=== PATIENT | male | born 1970 | race Caucasian/White ===

== ENCOUNTER 2019-04-15 00:13 | Inpatient (IN) ==
[2019-04-15] MEDS ORDERED: cefTRIAXone SODIUM 2,000 MG/70 ML BAG IV STA (00:41)
[2019-04-15 01:02] LABS: Basophils # (auto) 0.04 K/uL (0-0.2); Basophils % (auto) 0.3 %; Eosinophils # (auto) 0.44 K/uL (0-0.5); Eosinophils % (auto) 3.6 %; Hematocrit (blood only) 38.8 % (42-52); Hemoglobin 12.7 g/dL (14.0-18.0); Immature Granulocytes # (auto) 0.41 K/uL (0.00-0.02); Immature Granulocytes % (auto) 3.4 %; Lymphocytes # (auto) 3.08 K/uL (1.2-3.4); Lymphocytes % (auto) 25.5 %; Mean Corpuscular Hemoglobin 31.1 pg (25-34); Mean Corpuscular Hgb Conc 32.7 g/dL (32-36); Mean Corpuscular Volume 95.1 fL (80-100); Monocytes # (auto) 1.39 K/uL (0.11-0.59); Monocytes % (auto) 11.5 %; Neutrophils # (auto) 6.71 K/uL (1.4-6.5); Neutrophils % (auto) 55.7 %; Platelet Count 206 K/uL (130-400); RDW Standard Deviation 45.8 fL (36.4-46.3); Red Blood Count 4.08 M/uL (4.7-6.1); White Blood Count 12.07 K/uL (4.8-10.8)
[2019-04-15 01:20] LABS: Alanine Aminotransferase 37 U/L (12-78); Albumin Level 2.9 gm/dl (3.4-5.0); Aspartate Aminotransferase 11 U/L (15-37); BUN Creatinine Ratio 14.9 (10-20); Blood Urea Nitrogen 9 mg/dl (7-18); Calcium 8.5 mg/dl (8.5-10.1); Carbon Dioxide 30 mmol/L (21-32); Chloride 105 mmol/L (98-107); Est GFR (African American) 137.8; Est GFR (Non-African American) 118.9; Glucose 117 mg/dl (70-99); Potassium 3.8 mmol/L (3.5-5.1); Sodium 140 mmol/L (136-145)
[2019-04-15 01:22] LABS: Albumin Globulin Ratio 0.8 (0.9-2); Alkaline Phosphatase 75 U/L (45-117); Bilirubin,Total 0.5 mg/dl (0.2-1); Globulin 3.8 gm/dl (2.5-4.0); Total Protein 6.7 gm/dl (6.4-8.2)
--- NOTE | 2019-04-15 02:03 | Emergency Department Note ---
History of Present Illness General Chief complaint: Swelling/Edema to Extremity Stated complaint: SWELLING, DISCOLORATION, PAIN RT LEG History of Present Illness Maximum Pain Intensity: 4 This 48-year-old presents to the ER complaining of right lower leg pain and swelling Location: Right lower leg Quality: Swollen Severity: Moderate Duration: Past few days Timing: Noted few days ago Context: Patient was concerned and came in Modifying factors: better with nothing; worse with nothing Patient is visiting from [place]. Patient has been feeling sick the past few days. Patient states he is healthy with no active medical problems. Patient denies chest pain, dyspnea, cough, congestion, abdominal pain, trauma to the leg. No IV drug abuse. No diabetes. No history of DVT or PE. No family history of DVT or PE. No history of MRSA. Tetanus is current. Home Medications Home Medications Medication Instructions Recorded Confirmed Type Black Elderberry 1 tab PO DAILY 04/15/19 04/15/19 History acetaminophen [Tylenol] 650 mg PO Q6H PRN 04/15/19 04/15/19 History cranberry extract 0 mg PO DIRECTED 04/15/19 04/15/19 History Allergies Allergy/AdvReac Type Severity Reaction Status Date / Time No Known Allergies Allergy Unverified 04/15/19 01:01 Past Med/Surg History Medical History No acute medical problems Surgical History History of cholecystectomy Social History Feels Safe at Home: Yes Smoking Status: Former smoker Review of Systems All systems reviewed & are unremarkable except as noted in HPI & below Physical Exam Vital Signs Vital Signs - 24 hr 04/15/19 00:16 04/15/19 00:42 04/15/19 01:30 Temperature 36.9 C Temperature Source Oral Sepsis Action Taken by Nursing No Action Required Pulse Rate 95 H 87 Pulse Rate from SpO2 Sensor 89 Respiratory Rate 24 14 Respiratory Effort / Characteristics Non-Labored Spontaneous Respiratory Depth Normal Blood Pressure 158/100 H 117/70 Blood Pressure Mean 119 85 Pulse Oximetry 95 95 Oxygen Delivery Method Room Air Room Air 04/15/19 01:36 04/15/19 01:45 04/15/19 01:47 Temperature Temperature Source Sepsis Action Taken by Nursing Pulse Rate 88 84 86 Pulse Rate from SpO2 Sensor 87 85 86 Respiratory Rate 21 29 H 32 H Respiratory Effort / Characteristics Respiratory Depth Blood Pressure 122/87 Blood Pressure Mean 98 Pulse Oximetry 95 98 96 Oxygen Delivery Method 04/15/19 02:31 04/15/19 02:33 04/15/19 02:45 Temperature Temperature Source Sepsis Action Taken by Nursing Pulse Rate 86 85 87 Pulse Rate from SpO2 Sensor 86 84 87 Respiratory Rate 20 25 H 38 H Respiratory Effort / Characteristics Respiratory Depth Blood Pressure 127/83 Blood Pressure Mean 97 Pulse Oximetry 98 100 97 Oxygen Delivery Method 04/15/19 02:46 04/15/19 03:00 04/15/19 03:01 Temperature Temperature Source Sepsis Action Taken by Nursing Pulse Rate 88 88 86 Pulse Rate from SpO2 Sensor 88 87 88 Respiratory Rate 25 H 22 27 H Respiratory Effort / Characteristics Respiratory Depth Blood Pressure 134/79 132/84 Blood Pressure Mean 97 100 Pulse Oximetry 98 97 97 Oxygen Delivery Method 04/15/19 03:15 04/15/19 03:16 04/15/19 03:30 Temperature Temperature Source Sepsis Action Taken by Nursing Pulse Rate 89 87 91 H Pulse Rate from SpO2 Sensor 88 87 92 H Respiratory Rate 21 32 H 27 H Respiratory Effort / Characteristics Respiratory Depth Blood Pressure 141/79 H Blood Pressure Mean 99 Pulse Oximetry 95 96 97 Oxygen Delivery Method 04/15/19 03:31 04/15/19 03:45 04/15/19 03:46 Temperature Temperature Source Sepsis Action Taken by Nursing Pulse Rate 87 90 90 Pulse Rate from SpO2 Sensor 87 90 91 H Respiratory Rate 28 H 27 H 25 H Respiratory Effort / Characteristics Respiratory Depth Blood Pressure 161/85 H 125/97 Blood Pressure Mean 110 106 Pulse Oximetry 96 96 96 Oxygen Delivery Method 04/15/19 04:00 04/15/19 04:02 04/15/19 04:15 Temperature Temperature Source Sepsis Action Taken by Nursing Pulse Rate 88 89 87 Pulse Rate from SpO2 Sensor 88 91 H 89 Respiratory Rate 33 H 20 24 Respiratory Effort / Characteristics Respiratory Depth Blood Pressure 130/81 Blood Pressure Mean 97 Pulse Oximetry 96 97 97 Oxygen Delivery Method 04/15/19 04:16 04/15/19 04:30 04/15/19 04:31 Temperature Temperature Source Sepsis Action Taken by Nursing Pulse Rate 89 90 84 Pulse Rate from SpO2 Sensor 89 91 H 85 Respiratory Rate 42 H 23 22 Respiratory Effort / Characteristics Respiratory Depth Blood Pressure 140/104 H 132/86 Blood Pressure Mean 116 101 Pulse Oximetry 98 95 98 Oxygen Delivery Method 04/15/19 04:45 04/15/19 04:46 Temperature Temperature Source Sepsis Action Taken by Nursing Pulse Rate 88 87 Pulse Rate from SpO2 Sensor 88 87 Respiratory Rate 22 27 H Respiratory Effort / Characteristics Respiratory Depth Blood Pressure 161/78 H Blood Pressure Mean 105 Pulse Oximetry 99 97 Oxygen Delivery Method VITALS: Vitals are noted on the nurse's note and reviewed by myself. Vital signs stable. GENERAL: White male, in no acute distress, nondiaphoretic, well-developed well- nourished. SKIN: Capillary reflex less than 2 seconds. HEENT: Normocephalic. PERRLA. EOMI. Nares patent. Mucous membranes moist. Neck is supple without nuchal rigidity. HEART: Regular rate and rhythm LUNGS: Clear to auscultation bilaterally without wheezes, rales or rhonchi. No retractions or accessory muscle use. ABDOMEN: Positive bowel sounds x 4. Normal tympanic percussion. Soft, nontender, without masses or organomegaly. Lewis sign negative. No guarding or rebound tenderness. No CVA tenderness MUSCULOSKELETAL: No gross musculoskeletal defects. Right lower leg erythematous and edematous concerning for infection. Pedal pulses +2 equal and present bilaterally. NEURO: Patient was alert and oriented to person place and time. Normal sensation to light and sharp touch. No focal neurological deficits. Course Administered Medications Doxycycline Hyclate 100 mg/ (Dextrose) 110 mls @ 50 mls/hr IV NOW STA Stop: 04/15/19 05:48 Last Admin: 04/15/19 04:49 Dose: 50 mls/hr Documented by: [id number] Discontinued Medications Furosemide (Lasix) Confirm Administered Dose 40 mg IV .STK-MED ONE Stop: 04/15/19 04:28 Last Admin: 04/15/19 04:49 Dose: 40 mg Documented by: [id number] Ceftriaxone Sodium (Rocephin) 2,000 mg in 70 mls @ 140 mls/hr IV NOW STA Stop: 04/15/19 01:10 Last Infusion: 04/15/19 02:30 Dose: 0 mls/hr Documented by: [id number] Admin: 04/15/19 01:45 Dose: 140 mls/hr Documented by: [id number] Furosemide 40 mg/ Syringe 4 mls @ 4 mls/min IV ONE ONE Stop: 04/15/19 04:23 Last Admin: 04/15/19 04:49 Dose: Not Given Documented by: [id number] Potassium Chloride (Klor-Con M10) Confirm Administered Dose 40 meq PO .STK-MED ONE Stop: 04/15/19 04:43 Last Admin: 04/15/19 04:50 Dose: 40 meq Documented by: [id number] Medical Decision Making Medical Records Attestation: I reviewed the patient's medical records. Home Medications Current Medication List: was personally reviewed by me Laboratory Data Attestation: I reviewed the patient's lab results. Result diagrams: 04/15/19 00:50 04/15/19 00:50 Lab Results 04/15/19 04/15/19 04/15/19 Range/Units 00:50 00:50 00:58 WBC 12.07 H (4.8-10.8) K/uL RBC 4.08 L (4.7-6.1) M/uL Hgb 12.7 L (14.0-18.0) g/dL Hct 38.8 L (42-52) % MCV 95.1 (80-100) fL MCH 31.1 (25-34) pg MCHC 32.7 (32-36) g/dL RDW Std Deviation 45.8 (36.4-46.3) fL RDW Coeff of Nelson 13.0 (11.5-14.5) % Plt Count 206 (130-400) K/uL MPV 9.0 (7.4-10.4) fL Immature Gran % (Auto) 3.4 % Neut % (Auto) 55.7 % Lymph % (Auto) 25.5 % [place] % (Auto) 11.5 % Eos % (Auto) 3.6 % Baso % (Auto) 0.3 % Immature Gran # (Auto) 0.41 H (0.00-0.02) K/uL Neut # (Auto) 6.71 H (1.4-6.5) K/uL Lymph # (Auto) 3.08 (1.2-3.4) K/uL [place] # (Auto) 1.39 H (0.11-0.59) K/uL Eos # (Auto) 0.44 (0-0.5) K/uL Baso # (Auto) 0.04 (0-0.2) K/uL Sodium 140 (136-145) mmol/L Potassium 3.8 (3.5-5.1) mmol/L Chloride 105 (98-107) mmol/L Carbon Dioxide 30 (21-32) mmol/L Anion Gap 5.0 (3-11) BUN 9 (7-18) mg/dl Creatinine 0.61 (0.6-1.4) mg/dl Est Cr Clr Drug Dosing Not Reportable Est GFR ( Amer) 137.8 Est GFR (Non-Af Amer) 118.9 BUN/Creatinine Ratio 14.9 (10-20) Glucose 117 H (70-99) mg/dl POC Lactic Acid Julian 1.48 (0.90-1.70) mmol/L Calcium 8.5 (8.5-10.1) mg/dl Magnesium 2.2 (1.8-2.4) mg/dl Total Bilirubin 0.5 (0.2-1) mg/dl AST 11 L (15-37) U/L ALT 37 (12-78) U/L Alkaline Phosphatase 75 (45-117) U/L NT-Pro-B Natriuret Pep 82 (0-450) pg/ml Total Protein 6.7 (6.4-8.2) gm/dl Albumin 2.9 L (3.4-5.0) gm/dl Globulin 3.8 (2.5-4.0) gm/dl Albumin/Globulin Ratio 0.8 L (0.9-2) TSH 1.030 (0.300-4.500) uIu/ml Imaging Data Attestation: I personally reviewed and interpreted this imaging study as follows: [facility] Narrative Prior records reviewed and summarized as above. Triage Nursing notes reviewed. Additional history obtained from family. The patient's history was concerning for swelling and redness of the skin. Differential diagnosis: Etiologies such as cellulitis, abscess, MRSA infection, DVT, necrotizing fasciitis, dermatitis, drug eruption, as well as others were entertained.. Physical examination: The physical examination was consistent with cellulitis ER treatment provided: Rocephin On reassessment the patient felt better. Diagnostics interpreted by me: The labs revealed leukocytosis, negative lactic acid Blood cultures pending Imaging studies: US VENOUS BILATERAL LOWER EXTREMITIES: No evidence of acute DVT. Right calf edema. Prominent right inguinal lymph nodes. Radiologist: Arslan Smith M.D. Consultation: A consultation was placed with Dr Tracey, hospitalist. The case was discussed and diagnostics were reviewed. The patient was evaluated in the ER for further treatment. This appears to be isolated cellulitis. This is quite extensive. Patient did have a white count. He was started antibiotics. Medicine was consulted. He is agreeable to treatment plan of admission. By the evaluation outlined above emergent etiologies such as abscess, necrotizin g fasciitis, DVT, as well as others were deemed relatively unlikely. The pt informed about the findings as listed above. All questions were answered and pleased with the treatment. Case reviewed with my attending The chart was completed utilizing [employer] Speech voice recognition software. Grammatical errors, random word insertions, pronoun errors, and incomplete sentences are an occassional consequence of this system due to software limitations, ambient noise, and hardware issues. Any formal questions or concerns about the content, text, or information contained within the body of this dictation should be directly addressed to the physician drafter assistant for clarification. Impression & Plan Cellulitis of leg, right Discharge Plan Visit Data Chief Complaint: Swelling/Edema to Extremity Stated Complaint: SWELLING, DISCOLORATION, PAIN RT LEG ED Provider: Isabella Barone ED Midlevel Provider: Leila England Discharge Problem: Cellulitis of leg, right Patient Disposition: Admitted As Inpatient Condition: Good Forms Stand Alone Forms: Protective Systems Prescriptions Prescriptions: No Action acetaminophen [Tylenol] 325 mg Tablet 650 mg PO Q6H PRN (Reason: Pain) RF: 0 cranberry extract 500 mg Capsule PO DIRECTED RF: 0 Black Elderberry 1 tab PO DAILY RF: 0 Referrals Referrals: PCP,NO [Primary Care Provider] -
[2019-04-15] MEDS ORDERED: DOXYCYCLINE HYCLATE 100 MG in DEXTROSE 5% 100 ML IV STA (03:37)
[2019-04-15 04:16] LABS: Magnesium 2.2 mg/dl (1.8-2.4); NT Pro B Type Natriuretic Pept 82 pg/ml (0-450)
[2019-04-15] MEDS ORDERED: FUROSEMIDE 40 MG in SYRINGE 0 ML IV ONE (04:22)
--- NOTE | 2019-04-15 04:23 | History & Physical Report ---
Date of Service April 15, 2019 Assessment & Plan (1) SOB (shortness of breath): With weight gain over the last year Possible asymmetric congestion on CXR possible subacute CHF Right-sided heart failure with normal BNP hx EMELY, CPAP noncompliance Situational hypertension Possibly chronic given cardiac enlargement on CXR RLE cellulitis no sepsis Hyperglycemia rule out DM New onset anemia possibly dilutional Tinea pedis past tobacco abuse PCU Diuretic Rx Strict I/Os, daily weights, fluid restriction for now Baseline TTE RE possible CHF, rule out for pulmonary hypertension Cardio consult pending TTE results Repeat polysomnography upon return to [place] for CPAP titration if patient amenable Local measures, Doxycycline for cellulitis, Check hemoglobin A1c Anemia work-up Topical antifungal for tinea pedis DVT prophylaxis. Lovenox subcu Full code History of Present Illness Primary Care Provider: Dr. Shaq Turner from [place] History obtained from patient, family, and records. Medical history significant for EMELY (CPAP noncompliance), past tobacco abuse, psoriasis Patient is a [place] of [place], [place] who is currently in town to help move [id number] to another residence. The last few days, patient noted redness on chronic right leg swelling without recollection of recent trauma. Feeling sick. No fever, no chills. No chest pain. noticed patient to be somewhat out of breath the last few days. As per patient, shortness of breath mostly on exertion for about a year with unquantified weight gain and bilateral leg swelling. No chest pain. Does not think he is eating as much. Patient received IV ceftriaxone at the ER for cellulitis. 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 Allergies Allergy/AdvReac Type Severity Reaction Status Date / Time No Known Allergies Allergy Unverified 04/15/19 01:01 Home Medications Home Medications Medication Instructions Recorded Confirmed Type Black Elderberry 1 tab PO DAILY 04/15/19 04/15/19 History acetaminophen [Tylenol] 650 mg PO Q6H PRN 04/15/19 04/15/19 History cranberry extract 0 mg PO DIRECTED 04/15/19 04/15/19 History Past Med/Surg History Medical History No acute medical problems Surgical History History of cholecystectomy Social History Feels Safe at Home: Yes Smoking Status: Former smoker Review of Systems Review of Systems: As per HPI, all 10 systems reviewed, scaly lesions noted on both feet by , all other ROS negative Physical Exam Physical Exam: GENERAL: Slightly uncomfortable, morbidly obese, minimal respiratory distress SKIN: Pallor , warm HEENT: Pale palpebral conjunctivae, no ptosis, dry buccal mucosa NECK : Supple, short neck, no tenderness CHEST : Decreased breath sounds, no tenderness HEART : RRR, no obvious murmurs ABDOMEN: Marked distention, nontender EXTREMITIES : Bilateral LE swelling, RLE induration with some tenderness; onychomycotic toes, bipedal hyperkeratotic scaling, plantar aspect NEUROLOGIC : Coherent, no facial asymmetry, no other gross focality Results & Data Vital Signs (Past 12 Hours) Vital Signs Temp Pulse Resp BP Pulse Ox 04/15/19 02:46 88 25 H 134/79 98 04/15/19 02:45 87 38 H 97 04/15/19 02:33 85 25 H 127/83 100 04/15/19 02:31 86 20 98 04/15/19 01:47 86 32 H 122/87 96 04/15/19 01:45 84 29 H 98 04/15/19 01:36 88 21 95 04/15/19 01:30 87 14 117/70 95 04/15/19 00:16 36.9 C 95 H 24 158/100 H 95 Laboratory Results Laboratory Results WBC 12.07 K/uL (4.8-10.8) H 04/15/19 00:50 RBC 4.08 M/uL (4.7-6.1) L 04/15/19 00:50 Hgb 12.7 g/dL (14.0-18.0) L 04/15/19 00:50 Hct 38.8 % (42-52) L 04/15/19 00:50 MCV 95.1 fL (80-100) 04/15/19 00:50 MCH 31.1 pg (25-34) 04/15/19 00:50 MCHC 32.7 g/dL (32-36) 04/15/19 00:50 RDW Std Deviation 45.8 fL (36.4-46.3) 04/15/19 00:50 RDW Coeff of Nelson 13.0 % (11.5-14.5) 04/15/19 00:50 Plt Count 206 K/uL (130-400) 04/15/19 00:50 MPV 9.0 fL (7.4-10.4) 04/15/19 00:50 Immature Gran % (Auto) 3.4 % 04/15/19 00:50 Neut % (Auto) 55.7 % 04/15/19 00:50 Lymph % (Auto) 25.5 % 04/15/19 00:50 [place] % (Auto) 11.5 % 04/15/19 00:50 Eos % (Auto) 3.6 % 04/15/19 00:50 Baso % (Auto) 0.3 % 04/15/19 00:50 Immature Gran # (Auto) 0.41 K/uL (0.00-0.02) H 04/15/19 00:50 Neut # (Auto) 6.71 K/uL (1.4-6.5) H 04/15/19 00:50 Lymph # (Auto) 3.08 K/uL (1.2-3.4) 04/15/19 00:50 [place] # (Auto) 1.39 K/uL (0.11-0.59) H 04/15/19 00:50 Eos # (Auto) 0.44 K/uL (0-0.5) 04/15/19 00:50 Baso # (Auto) 0.04 K/uL (0-0.2) 04/15/19 00:50 Sodium 140 mmol/L (136-145) 04/15/19 00:50 Potassium 3.8 mmol/L (3.5-5.1) 04/15/19 00:50 Chloride 105 mmol/L (98-107) 04/15/19 00:50 Carbon Dioxide 30 mmol/L (21-32) 04/15/19 00:50 Anion Gap 5.0 (3-11) 04/15/19 00:50 BUN 9 mg/dl (7-18) 04/15/19 00:50 Creatinine 0.61 mg/dl (0.6-1.4) 04/15/19 00:50 Est Cr Clr Drug Dosing Not Reportable 04/15/19 00:50 Est GFR ( Amer) 137.8 04/15/19 00:50 Est GFR (Non-Af Amer) 118.9 04/15/19 00:50 BUN/Creatinine Ratio 14.9 (10-20) 04/15/19 00:50 Glucose 117 mg/dl (70-99) H 04/15/19 00:50 POC Lactic Acid Julian 1.48 mmol/L (0.90-1.70) 04/15/19 00:58 Calcium 8.5 mg/dl (8.5-10.1) 04/15/19 00:50 Magnesium 2.2 mg/dl (1.8-2.4) 04/15/19 00:50 Total Bilirubin 0.5 mg/dl (0.2-1) 04/15/19 00:50 AST 11 U/L (15-37) L 04/15/19 00:50 ALT 37 U/L (12-78) 04/15/19 00:50 Alkaline Phosphatase 75 U/L (45-117) 04/15/19 00:50 NT-Pro-B Natriuret Pep 82 pg/ml (0-450) 04/15/19 00:50 Total Protein 6.7 gm/dl (6.4-8.2) 04/15/19 00:50 Albumin 2.9 gm/dl (3.4-5.0) L 04/15/19 00:50 Globulin 3.8 gm/dl (2.5-4.0) 04/15/19 00:50 Albumin/Globulin Ratio 0.8 (0.9-2) L 04/15/19 00:50 TSH 1.030 uIu/ml (0.300-4.500) 04/15/19 00:50 Diagnostic Findings Chest x-ray as per my interpretation atelectasis, cardiomegaly, poss asymmetric pulmonary congestion L>R EKG as per my interpretation rate 90, NSR, LAD, LAFB, incomplete RBBB, T wave flattening septal leads Ultrasound venous bilateral : No DVT. Right calf edema. Prominent right inguinal lymph nodes
[2019-04-15] MEDS ORDERED: FUROSEMIDE 40 MG/4 ML VIAL IV ONE (04:27)
[2019-04-15] MEDS ORDERED: POTASSIUM CHLORIDE 20 MEQ TABCR PO STA (04:33)
[2019-04-15] MEDS ORDERED: POTASSIUM CHLORIDE 10 MEQ TABCR PO ONE (04:42)
[2019-04-15] MEDS: CLOTRIMAZOLE 1% CR 15 GM TUBE EXT SCH ×2 (07:06→21:41)
--- NOTE | 2019-04-15 08:10 | Ultrasound Report ---
BILATERAL LOWER EXTREMITY VENOUS DOPPLER HISTORY: Right leg swelling COMPARISON STUDY: None. FINDINGS: There is normal compressibility, flow, and augmentation within the bilateral lower extremit y deep venous systems. Subcutaneous edema within the right calf. Prominent right inguinal lymph nodes with the largest measuring 5.9 x 1.5 x 3.5 cm. These demonstrate a normal fatty hilum and thin ros x. IMPRESSION: No DVT within the right or left lower extremity. Right inguinal lymphadenopathy. Electronically signed by: Alek Musa M.D. 04/15/2019 8:08 AM
--- NOTE | 2019-04-15 08:20 | XRay Report ---
XR chest 1V portable HISTORY: tachypnea COMPARISON: None. FINDINGS: The cardiac silhouette is enlarged. There is interstitial and vascular thickening suggestiv e of mild congestive change. No pleural effusions. No pneumothorax. No focal lung consolidations to s uggest pneumonia. IMPRESSION: Cardiomegaly with mild congestive change. Electronically signed by: Alek Musa M.D. 04/15/2019 8:18 AM
[2019-04-15] MEDS ORDERED: ACETAMINOPHEN 325 MG TAB PO PRN (08:52)
[2019-04-15] MEDS ORDERED: ENOXAPARIN INJ 40 MG/0.4 ML SYR SQ SCH (09:00)
[2019-04-15] MEDS: POTASSIUM CHLORIDE 20 MEQ TABCR PO SCH ×2 (09:46→21:41)
[2019-04-15] MEDS: METOPROLOL TARTRATE 25 MG TAB PO SCH ×2 (09:46→21:40)
--- NOTE | 2019-04-15 09:50 | Hospitalist Progress Note ---
Date of Service April 15, 2019 Assessment & Plan (1) Cellulitis of leg, right: Present on admission with RLE associated with B/L LE swelling and SOB Doppler of B/L LE showed no DVT within the right or left lower extremity. Right inguinal lymphadenopathy. Received rocephin and doxy IV Elevated WBC Will continue IV abx Blood cx pending (2) SOB (shortness of breath): Worsening SOB with minimal exertion Possible related to CHF CXR showed cardiomegaly with mild congestive change. Received Lasix IV, continue IV lasix for now Echo pending Will need to follow to get a sleep study to get Cpap machine Will monitor I/O (3) Morbid obesity with BMI of 60.0-69.9, adult: Counseling on weight loss Follow a healthy diet EMELY Had sleep study done few years ago Never follow with the specialist to get arrange for the Cpap Advised pt to follow up with the specialist in [place] to get arranged for the Cpap DVT px On Lovenox Ambulates Code status Full code Disposition Will discharge once medically stable Subjective Pt was seen and examined Lying in bed with no distress Pt said that he feels a little better He said that his right leg redness seems to improves He said that his breathing is a little better He said that the lasix makes him urinate alot Denies any chest pain, palpitation, dizziness and SOB Physical Exam Physical Exam: General- No acute distress Head- atraumatic Eyes- PERRL, EOMI, ENT- oropharynx clear Neck- supple, no JVD Lungs- clear to auscultation Heart- regular rhythm; no murmur Abdomen- normal bowel sounds, soft, nontender Extremities- no calf tenderness, B/L Edema, +erythema in RLE Neuro- alert, oriented x 3; PERRL, EOMI; no facial palsy; no dysarthria Skin- warm & dry, hyperkeratotic scaling Results & Data Vital Signs (Past 12 Hours) Vital Signs Temp Pulse Pulse Resp BP BP Pulse Ox 04/15/19 06:23 37.5 C 90 18 145/78 H 95 04/15/19 06:00 89 27 H 95 04/15/19 05:46 92 H 24 149/69 H 95 04/15/19 05:45 91 H 24 96 04/15/19 05:31 87 25 H 152/93 H 98 04/15/19 05:30 89 27 H 96 04/15/19 05:16 86 28 H 145/87 H 99 04/15/19 05:15 84 23 97 04/15/19 05:01 83 20 154/82 H 97 04/15/19 05:00 90 27 H 88 L 04/15/19 04:46 87 27 H 161/78 H 97 04/15/19 04:45 88 22 99 04/15/19 04:31 84 22 132/86 98 04/15/19 04:30 90 23 95 04/15/19 04:16 89 42 H 140/104 H 98 04/15/19 04:15 87 24 97 04/15/19 04:02 89 20 130/81 97 04/15/19 04:00 88 33 H 96 04/15/19 03:46 90 25 H 125/97 96 04/15/19 03:45 90 27 H 96 04/15/19 03:31 87 28 H 161/85 H 96 04/15/19 03:30 91 H 27 H 97 04/15/19 03:16 87 32 H 141/79 H 96 04/15/19 03:15 89 21 95 04/15/19 03:01 86 27 H 132/84 97 04/15/19 03:00 88 22 97 04/15/19 02:46 88 25 H 134/79 98 04/15/19 02:45 87 38 H 97 04/15/19 02:33 85 25 H 127/83 100 04/15/19 02:31 86 20 98 04/15/19 01:47 86 32 H 122/87 96 04/15/19 01:45 84 29 H 98 04/15/19 01:36 88 21 95 04/15/19 01:30 87 14 117/70 95 04/15/19 00:16 36.9 C 95 H 24 158/100 H 95
--- NOTE | 2019-04-15 11:36 | Cardiology Consultation ---
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 Echocardiogram is pending Agree with ongoing diuresis, would have low threshold for initiating both low- dose DAMION inhibitor possible beta-valentino as clinical course proceeds Will need underlying pulmonary and weight issues addressed Further recommendations pending results of echocardiogram (2) Morbid obesity with BMI of 60.0-69.9, adult: (3) Pickwickian syndrome: History of Present Illness Reason for Consultation: Lower extremity edema, cellulitis Requesting Physician: Dr Jimenez Attending Physician: Juliet Jimenez MD History of Present Illness Patient is a 48-year-old male without prior history of cardiac disease but underlying history of obstructive sleep apnea untreated and morbid obesity who is traveled to the area for familial concerns. Presented this admission noting increasing lower extremity edema times several months acutely so with erythema and tenderness of the right leg resulting in ER presentation. He denies any chest pains tachypalpitations syncope or near syncope. Exercise capacity is been gradually declining but notes he been previously vigorously active. Denies prior history of cardiac disease angina myocardial infarction TIA or stroke Denies any recent bleeding difficulties. Notes no overt fevers or chills feeling poorly for times several days with generalized malaise. Carries a history of past obstructive sleep apnea not treated never trialed equipment Allergies Allergy/AdvReac Type Severity Reaction Status Date / Time No Known Allergies Allergy Unverified 04/15/19 01:01 Home Medications Home Medications Medication Instructions Recorded Confirmed Type Black Elderberry 1 tab PO DAILY 04/15/19 04/15/19 History acetaminophen [Tylenol] 650 mg PO Q6H PRN 04/15/19 04/15/19 History cranberry extract 0 mg PO DIRECTED 04/15/19 04/15/19 History Patient History Medical History No acute medical problems Surgical History History of cholecystectomy Social History Preferred Language: Maltese Communication Ability: Effective Security Officers And Guards Required: No Beliefs That Will Affect Care: None Current Living Situation: Spouse Other Information That Helps Us Care for You: No Feels Safe at Home: Yes Safety Concerns: Feels Safe At This Time Smoking Status: Former smoker Second Hand Exposure: Yes ; Hx Alcohol Use: Yes Alcohol type: hard liquor Hx Substance Use: No Review of Systems Review of Systems: All systems reviewed & are unremarkable except as noted in HPI & below Physical Exam Constitutional: + morbidly obese; no acute distress Eyes: PERRL, conjunctivae normal, anicteric sclerae Neck: + thick neck Respiratory: Auscultation: + diminished lung sounds; no rales, no rhonchi and no wheezes Cardiovascular: Rate/Rhythm: regular rate and regular rhythm Distant heart sounds without audible murmur Gastrointestinal (Abdomen): Obese with large panniculus Skin: Large area of erythema and cellulitis right lower extremity Both lower extremities significantly edematous with chronic stasis changes Neurologic: PERRL, EOMI, accommodation nl, no face palsy, no dysarthria Results & Data Vital Signs (Past 12 Hours) Vital Signs Temp Pulse Pulse Resp BP BP Pulse Ox 04/15/19 06:23 37.5 C 90 18 145/78 H 95 04/15/19 06:00 89 27 H 95 04/15/19 05:46 92 H 24 149/69 H 95 04/15/19 05:45 91 H 24 96 04/15/19 05:31 87 25 H 152/93 H 98 04/15/19 05:30 89 27 H 96 04/15/19 05:16 86 28 H 145/87 H 99 04/15/19 05:15 84 23 97 04/15/19 05:01 83 20 154/82 H 97 04/15/19 05:00 90 27 H 88 L 04/15/19 04:46 87 27 H 161/78 H 97 04/15/19 04:45 88 22 99 04/15/19 04:31 84 22 132/86 98 04/15/19 04:30 90 23 95 04/15/19 04:16 89 42 H 140/104 H 98 04/15/19 04:15 87 24 97 04/15/19 04:02 89 20 130/81 97 04/15/19 04:00 88 33 H 96 04/15/19 03:46 90 25 H 125/97 96 04/15/19 03:45 90 27 H 96 04/15/19 03:31 87 28 H 161/85 H 96 04/15/19 03:30 91 H 27 H 97 04/15/19 03:16 87 32 H 141/79 H 96 04/15/19 03:15 89 21 95 04/15/19 03:01 86 27 H 132/84 97 04/15/19 03:00 88 22 97 04/15/19 02:46 88 25 H 134/79 98 04/15/19 02:45 87 38 H 97 04/15/19 02:33 85 25 H 127/83 100 04/15/19 02:31 86 20 98 04/15/19 01:47 86 32 H 122/87 96 04/15/19 01:45 84 29 H 98 04/15/19 01:36 88 21 95 04/15/19 01:30 87 14 117/70 95 04/15/19 00:16 36.9 C 95 H 24 158/100 H 95 Laboratory Results Laboratory Results - last 24 hr 04/15/19 04/15/19 04/15/19 00:50 00:50 00:50 WBC 12.07 H RBC 4.08 L Hgb 12.7 L Hct 38.8 L MCV 95.1 MCH 31.1 MCHC 32.7 RDW Std Deviation 45.8 RDW Coeff of Nelson 13.0 Plt Count 206 MPV 9.0 Immature Gran % (Auto) 3.4 Neut % (Auto) 55.7 Lymph % (Auto) 25.5 [place] % (Auto) 11.5 Eos % (Auto) 3.6 Baso % (Auto) 0.3 Immature Gran # (Auto) 0.41 H Neut # (Auto) 6.71 H Lymph # (Auto) 3.08 [place] # (Auto) 1.39 H Eos # (Auto) 0.44 Baso # (Auto) 0.04 Sodium 140 Potassium 3.8 Chloride 105 Carbon Dioxide 30 Anion Gap 5.0 BUN 9 Creatinine 0.61 Est Cr Clr Drug Dosing Not Reportable Est GFR ( Amer) 137.8 Est GFR (Non-Af Amer) 118.9 BUN/Creatinine Ratio 14.9 Glucose 117 H Estimat Average Glucose Pending Hemoglobin A1c Pending POC Lactic Acid Julian Calcium 8.5 Magnesium 2.2 Total Bilirubin 0.5 AST 11 L ALT 37 Alkaline Phosphatase 75 NT-Pro-B Natriuret Pep 82 Total Protein 6.7 Albumin 2.9 L Globulin 3.8 Albumin/Globulin Ratio 0.8 L TSH 1.030 04/15/19 00:58 WBC RBC Hgb Hct MCV MCH MCHC RDW Std Deviation RDW Coeff of Nelson Plt Count MPV Immature Gran % (Auto) Neut % (Auto) Lymph % (Auto) [place] % (Auto) Eos % (Auto) Baso % (Auto) Immature Gran # (Auto) Neut # (Auto) Lymph # (Auto) [place] # (Auto) Eos # (Auto) Baso # (Auto) Sodium Potassium Chloride Carbon Dioxide Anion Gap BUN Creatinine Est Cr Clr Drug Dosing Est GFR ( Amer) Est GFR (Non-Af Amer) BUN/Creatinine Ratio Glucose Estimat Average Glucose Hemoglobin A1c POC Lactic Acid Julian 1.48 Calcium Magnesium Total Bilirubin AST ALT Alkaline Phosphatase NT-Pro-B Natriuret Pep Total Protein Albumin Globulin Albumin/Globulin Ratio TSH ECG Additional Comments: 15-APR-2019 05:58:13 [facility]-EDSTAT ROUTINE RETRIEVAL Poor data quality, interpretation may be adversely affected Normal sinus rhythm Non- specific intra-ventricular conduction delay Borderline ECG No previous ECGs available
[2019-04-15] MEDS ORDERED: PERFLUTREN LIPID MICROSPHERE (DEFINITY) IV ONE (15:01)
[2019-04-15] MEDS: FUROSEMIDE 40 MG in SYRINGE 0 ML IV SCH (16:37)
[2019-04-15] MEDS: ENOXAPARIN INJ 40 MG/0.4 ML SYR SQ SCH (21:39)
[2019-04-15] MEDS: DOXYCYCLINE HYCLATE 100 MG in DEXTROSE 5% 100 ML IV SCH (21:39)
[2019-04-16] MEDS: cefTRIAXone SODIUM 2,000 MG in DEXTROSE 5% 50 ML IV SCH (05:40)
[2019-04-16 07:02] LABS: Estimated Average Glucose 126 mg/dl
[2019-04-16 07:27] LABS: Basophils # (auto) 0.05 K/uL (0-0.2); Basophils % (auto) 0.4 %; Eosinophils # (auto) 0.24 K/uL (0-0.5); Eosinophils % (auto) 1.8 %; Hematocrit (blood only) 36.9 % (42-52); Hemoglobin 12.1 g/dL (14.0-18.0); Immature Granulocytes # (auto) 0.68 K/uL (0.00-0.02); Lymphocytes % (auto) 23.5 %; Mean Corpuscular Hemoglobin 31.2 pg (25-34); Mean Corpuscular Hgb Conc 32.8 g/dL (32-36); Mean Corpuscular Volume 95.1 fL (80-100); Mean Platelet Volume 9.1 fL (7.4-10.4); Monocytes # (auto) 1.04 K/uL (0.11-0.59); Monocytes % (auto) 7.6 %; Neutrophils % (auto) 61.7 %; Platelet Count 223 K/uL (130-400); RDW Coefficient of Variation 13.1 % (11.5-14.5); RDW Standard Deviation 45.4 fL (36.4-46.3); Red Blood Count 3.88 M/uL (4.7-6.1); White Blood Count 13.61 K/uL (4.8-10.8)
[2019-04-16 08:04] LABS: BUN Creatinine Ratio 12.9 (10-20); Calcium 8.8 mg/dl (8.5-10.1); Creatinine Clr Calc Pharmacy 370.1 ml/min; Est GFR (African American) 142.8; Est GFR (Non-African American) 123.2
[2019-04-16] MEDS: FUROSEMIDE 40 MG in SYRINGE 0 ML IV SCH ×2 (08:28→15:33)
[2019-04-16] MEDS: ENOXAPARIN INJ 40 MG/0.4 ML SYR SQ SCH ×2 (08:29→21:23)
[2019-04-16] MEDS: METOPROLOL TARTRATE 25 MG TAB PO SCH ×2 (08:29→21:24)
[2019-04-16] MEDS: POTASSIUM CHLORIDE 20 MEQ TABCR PO SCH ×2 (08:29→21:25)
[2019-04-16] MEDS: DOXYCYCLINE HYCLATE 100 MG in DEXTROSE 5% 100 ML IV SCH ×2 (08:38→21:16)
--- NOTE | 2019-04-16 10:31 | Cardiology Progress Note ---
Date of Service April 16, 2019 Assessment & Plan (1) Pickwickian syndrome: (2) Cellulitis of leg, right: (3) Morbid obesity with BMI of 60.0-69.9, adult: 6 L of urine output noted over the last 24 hours with net balance of -5.4 L. Continue furosemide 40 mg IV twice daily. Electrolytes are stable. Continue IV antibiotics for cellulitis. Outpt evaluation of EMELY recommended. SQ lovenox for DVT prophylaxis. Subjective Chief complaint: Follow-up lower extremity edema Subjective: Patient comfortable sitting in the bedside chair. Telemetry reveals sinus rhythm with first-degree AV block in the 80 bpm range. Review of Systems Review of Systems: All systems reviewed & are unremarkable except as noted in HPI & below Physical Exam Physical Exam: Temp Pulse Resp BP Pulse Ox 36.7 C 79 22 108/75 93 04/16/19 07:24 04/16/19 07:24 04/16/19 07:24 04/16/19 07:24 04/16/19 07:24 Constitutional: + morbidly obese Respiratory: normal respiratory effort, lungs clear to auscultation Cardiovascular: Extremities: + edema (1-2+ lower extremity edema, right lower extremity erythema) Heart sounds somewhat distant, no audible murmurs Gastrointestinal (Abdomen): Percussion/Palpation: abdomen nontender and no guarding Skin: Extremity erythema Neurologic: PERRL, EOMI, accommodation nl, no face palsy, no dysarthria Results & Data Vital Signs (Past 12 Hours) Vital Signs Temp Pulse Pulse Resp BP BP Pulse Ox 04/16/19 07:24 36.7 C 79 22 108/75 93 04/16/19 03:58 37.1 C 88 20 137/64 93 04/15/19 23:47 61 04/15/19 23:44 36.8 C 78 23 118/76 96 Laboratory Results CBC 04/16/19 Range/Units 07:00 WBC 13.61 H (4.8-10.8) K/uL RBC 3.88 L (4.7-6.1) M/uL Hgb 12.1 L (14.0-18.0) g/dL Hct 36.9 L (42-52) % Plt Count 223 (130-400) K/uL Neut # (Auto) 8.40 H (1.4-6.5) K/uL Lymph # (Auto) 3.20 (1.2-3.4) K/uL [place] # (Auto) 1.04 H (0.11-0.59) K/uL Eos # (Auto) 0.24 (0-0.5) K/uL Baso # (Auto) 0.05 (0-0.2) K/uL Comprehensive Metabolic Panel 04/16/19 Range/Units 07:00 Sodium 142 (136-145) mmol/L Potassium 4.0 (3.5-5.1) mmol/L Chloride 106 (98-107) mmol/L Carbon Dioxide 31 (21-32) mmol/L BUN 7 (7-18) mg/dl Creatinine 0.56 L (0.6-1.4) mg/dl Glucose 110 H (70-99) mg/dl Calcium 8.8 (8.5-10.1) mg/dl Intake and Output 04/15/19 04/16/19 04/16/19 22:59 06:59 14:59 Intake Total 240 / 530 180 / 530 Output Total 2000 / 6000 2000 / 6000 1000 / 1000 Balance -1760 / -5470 -1820 / -5470 -1000 / -1000 Intake: IV 180 / 290 Vibramycin 100 mg In D5 100 ml 110 / 110 @ 50 mls/hr IV Q12 KIM Rx#: [id number] Rocephin 2,000 mg In D5w 50 ml 70 / 70 @ 100 mls/hr IV Q24H KIM Rx#: [id number] Oral 240 / 240 Output: Urine 2000 / 6000 2000 / 6000 1000 / 1000 Other: Weight 257.1 kg Diagnostic Findings EKG performed 04/15/2019 revealed sinus rhythm at 91 bpm, artifact limits assessment especially in lead V3, no significant repolarization changes noted on technically limited EKG. 2D echocardiogram performed 04/15/2019 reviewed and apparently by the undersigned: Study is technically difficult and therefore technically limited due to patient characteristics, poor acoustic windows Mild concentric left ventricular hypertrophy is present with normal LV wall motion LVEF 60-65%. The right ventricle is not well visualized but appears grossly normal in size and systolic function. The inferior vena cava is dilated with diameter of 3 cm, reduced collapsibility with inspiration suggestive of increased right atrial pressure of 15 mmHg. The pulmonary artery systolic pressure is calculated to be 48 mmHg consistent with mild pulmonary hypertension. Mild tricuspid regurgitation is present. Medications Administered Current Inpatient Medications Acetaminophen (Tylenol) 650 mg PO Q4H PRN PRN Reason: Pain or Fever Stop: 05/15/19 08:51 Last Admin: 04/15/19 13:01 Dose: 650 mg Documented by: Clotrimazole (Lotrimin 1%) 1 appln EXT BID [facility] Stop: 05/15/19 05:14 Last Admin: 04/15/19 21:41 Dose: Not Given Documented by: Enoxaparin Sodium (Lovenox) 40 mg SQ Q12 [facility] Stop: 05/15/19 20:59 Last Admin: 04/16/19 08:29 Dose: 40 mg Documented by: Furosemide 40 mg/ Syringe 4 mls @ 4 mls/min IV BID17 [facility] Stop: 04/16/19 17:00 Last Admin: 04/16/19 08:28 Dose: 4 mls/min Documented by: Doxycycline Hyclate 100 mg/ (Dextrose) 110 mls @ 50 mls/hr IV Q12 [facility]; Protocol Stop: 04/25/19 20:59 Last Admin: 04/16/19 08:38 Dose: 50 mls/hr Documented by: Ceftriaxone Sodium 2,000 mg/ (Dextrose) 70 mls @ 100 mls/hr IV Q24H [facility]; Protocol Stop: 04/25/19 05:59 Last Infusion: 04/16/19 06:25 Dose: Infused Documented by: Metoprolol Tartrate (Lopressor) 12.5 mg PO BID [facility] Stop: 05/15/19 08:59 Last Admin: 04/16/19 08:29 Dose: 12.5 mg Documented by: Potassium Chloride (Klor-Con M20) 20 meq PO BID [facility] Stop: 05/15/19 08:59 Last Admin: 04/16/19 08:29 Dose: 20 meq Documented by:
[2019-04-16] MEDS ORDERED: IBUPROFEN 200 MG TAB PO STA (11:58)
[2019-04-16] MEDS: CLOTRIMAZOLE 1% CR 15 GM TUBE EXT SCH ×2 (12:32→22:19)
--- NOTE | 2019-04-16 18:42 | Hospitalist Progress Note ---
Date of Service April 16, 2019 Assessment & Plan (1) Cellulitis of leg, right: Present on admission with RLE associated with B/L LE swelling and SOB Doppler of B/L LE showed no DVT within the right or left lower extremity. Right inguinal lymphadenopathy. Continue Rocephin and doxy IV Elevated WBC Will continue IV abx Blood cx no growth (2) SOB (shortness of breath): Worsening SOB with minimal exertion Possible related to CHF CXR showed cardiomegaly with mild congestive change. Continue IV lasix 40mg BID ECHO showed mo wall motion abnormality with EF 60-65 % Has been diuresis very well with 6 L of urine output noted over the last 24 hours with net balance of -5.4 L. Continue monitor Will monitor electrolytes (3) Morbid obesity with BMI of 60.0-69.9, adult: Counseling on weight loss Follow a healthy diet EMELY Had sleep study done few years ago Never follow with the specialist to get arrange for the Cpap Advised pt to follow up with the specialist in [place] to get arranged for the Cpap DVT px On Lovenox Ambulates Code status Full code Disposition Will discharge once medically stable Subjective Pt was seen and examined Lying in bed with no distress with at bedside Pt said that he feels much better He said that he was having an headache this morning He has been diuresis very well Denies any chest pain, palpitation, dizziness and SOB Physical Exam Physical Exam: General- No acute distress Head- atraumatic Eyes- PERRL, EOMI, ENT- oropharynx clear Neck- supple, no JVD Lungs- clear to auscultation Heart- regular rhythm; no murmur Abdomen- normal bowel sounds, soft, nontender Extremities- no calf tenderness, B/L Edema, +erythema in RLE Neuro- alert, oriented x 3; PERRL, EOMI; no facial palsy; no dysarthria Skin- warm & dry, hyperkeratotic scaling Results & Data Vital Signs (Past 12 Hours) Vital Signs Temp Pulse Resp BP BP Pulse Ox 04/16/19 15:07 36.8 C 81 20 139/80 91 04/16/19 11:56 37 C 86 20 135/83 95 04/16/19 07:24 36.7 C 79 22 108/75 93
[2019-04-17] MEDS: cefTRIAXone SODIUM 2,000 MG in DEXTROSE 5% 50 ML IV SCH (05:46)
[2019-04-17] MEDS: METOPROLOL TARTRATE 25 MG TAB PO SCH (08:49)
[2019-04-17] MEDS: POTASSIUM CHLORIDE 20 MEQ TABCR PO SCH (08:50)
[2019-04-17] MEDS: ENOXAPARIN INJ 40 MG/0.4 ML SYR SQ SCH (08:51)
[2019-04-17] MEDS: CLOTRIMAZOLE 1% CR 15 GM TUBE EXT SCH (08:51)
[2019-04-17] MEDS: DOXYCYCLINE HYCLATE 100 MG in DEXTROSE 5% 100 ML IV SCH (10:02)
[2019-04-17 10:04] LABS: Hematocrit (blood only) 38.7 % (42-52); Hemoglobin 12.5 g/dL (14.0-18.0); Mean Corpuscular Hemoglobin 31.2 pg (25-34); Mean Corpuscular Hgb Conc 32.3 g/dL (32-36); Mean Corpuscular Volume 96.5 fL (80-100); Mean Platelet Volume 8.8 fL (7.4-10.4); Platelet Count 260 K/uL (130-400); RDW Coefficient of Variation 13.1 % (11.5-14.5); RDW Standard Deviation 45.5 fL (36.4-46.3); Red Blood Count 4.01 M/uL (4.7-6.1); White Blood Count 11.73 K/uL (4.8-10.8)
[2019-04-17 10:19] LABS: BUN Creatinine Ratio 14.7 (10-20); Calcium 8.8 mg/dl (8.5-10.1); Creatinine Clr Calc Pharmacy 304.3 ml/min; Est GFR (African American) 133.4; Est GFR (Non-African American) 115.1; Potassium 3.8 mmol/L (3.5-5.1)
[2019-04-17] MEDS ORDERED: FUROSEMIDE 40 MG in SYRINGE 0 ML IV ONE (11:15)
--- NOTE | 2019-04-17 15:22 | Hospitalist Progress Note ---
Date of Service April 17, 2019 Assessment & Plan (1) Cellulitis of leg, right: Present on admission with RLE associated with B/L LE swelling and SOB Doppler of B/L LE showed no DVT within the right or left lower extremity. Right inguinal lymphadenopathy. On Rocephin and doxy IV WBC trending down Blood cx no growth Pt does not want to stay in the hospital He said that he would follow with his PCP in [place] Will change IV abx to oral doxycycline and keflex (2) SOB (shortness of breath): Worsening SOB with minimal exertion Possible related to CHF CXR showed cardiomegaly with mild congestive change. On IV lasix 40mg BID ECHO showed mo wall motion abnormality with EF 60-65 % Has been diuresis very well with a total output of 11L in the last 48hr Lost about 16kg (from 200kg to 244kg) Pt refused to stay in the hospital for 1 more night to continue diuresis Will change Lasix to oral Will need to check BMP in 1 week to monitor creatinine and electrolytes Continue fluid restriction to 2L daily (3) Morbid obesity with BMI of 60.0-69.9, adult: Counseling on weight loss Follow a healthy diet EMELY Had sleep study done few years ago Never follow with the specialist to get arrange for the Cpap Advised pt to follow up with the specialist in [place] to get arranged for the Cpap Pre-diabetes Hba1c 6 Follow a healthy diet diet Counseling on weight loss DVT px On Lovenox Ambulates Code status Full code Disposition Will discharge home today since pt refused to stay 1 more night Subjective Pt was seen and examined. Lying in bed with no distress. 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 and now he stuck in the hospital I asked him to spend 1 more night in the hospital , but he refused I explained to him that he has been diuresis well and he still has a lot of fluid to remove He said that he will not change his mind and asked me to change his meds to oral so that he can be discharged He said that he would follow up with his PCP in [place] I told him that he might get readmitted if he leaves the hospital early Denies any chest pain, palpitation, dizziness and SOB Physical Exam Physical Exam: General- No acute distress Head- atraumatic Eyes- PERRL, EOMI, ENT- oropharynx clear Neck- supple, no JVD Lungs- clear to auscultation Heart- regular rhythm; no murmur Abdomen- normal bowel sounds, soft, nontender Extremities- no calf tenderness, B/L Edema, +erythema in RLE slightly improves Neuro- alert, oriented x 3; PERRL, EOMI; no facial palsy; no dysarthria Skin- warm & dry, hyperkeratotic scaling Results & Data Vital Signs (Past 12 Hours) Vital Signs Temp Pulse Pulse Resp BP Pulse Ox 04/17/19 08:00 76 04/17/19 07:36 36.7 C 76 22 132/84 95 04/17/19 04:16 36.9 C 88 18 116/65 95
--- NOTE | 2019-04-17 16:02 | Discharge Summary ---
Date of Service April 17, 2019 Admission HPI Per Admitting Provider History obtained from patient, family, and records. Medical history significant for EMELY (CPAP noncompliance), past tobacco abuse, psoriasis Patient is a [place] of [place], [place] who is currently in town to help move [id number] to another residence. The last few days, patient noted redness on chronic right leg swelling without recollection of recent trauma. Feeling sick. No fever, no chills. No chest pain. noticed patient to be somewhat out of breath the last few days. As per patient, shortness of breath mostly on exertion for about a year with unquantified weight gain and bilateral leg swelling. No chest pain. Does not think he is eating as much. Patient received IV ceftriaxone at the ER for cellulitis. 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 Admission Exam Per Admitting Provider GENERAL: Slightly uncomfortable, morbidly obese, minimal respiratory distress SKIN: Pallor , warm HEENT: Pale palpebral conjunctivae, no ptosis, dry buccal mucosa NECK : Supple, short neck, no tenderness CHEST : Decreased breath sounds, no tenderness HEART : RRR, no obvious murmurs ABDOMEN: Marked distention, nontender EXTREMITIES : Bilateral LE swelling, RLE induration with some tenderness; onychomycotic toes, bipedal hyperkeratotic scaling, plantar aspect NEUROLOGIC : Coherent, no facial asymmetry, no other gross focality Principal Diagnosis Cellulitis of leg, right SOB (shortness of breath) Morbid obesity with BMI of 60.0-69.9, adult Pre-diabetes Sleep apnea Discharge Exam General- No acute distress Head- atraumatic Eyes- PERRL, EOMI, ENT- oropharynx clear Neck- supple, no JVD Lungs- clear to auscultation Heart- regular rhythm; no murmur Abdomen- normal bowel sounds, soft, nontender Extremities- no calf tenderness, B/L Edema, +erythema in RLE slightly improves Neuro- alert, oriented x 3; PERRL, EOMI; no facial palsy; no dysarthria Skin- warm & dry, hyperkeratotic scaling Discharge Data Allergies Allergy/AdvReac Type Severity Reaction Status Date / Time No Known Allergies Allergy Unverified 04/15/19 01:01 Consultations 04/15/19 03:35 ED Decision to Admit Stat 04/15/19 08:42 Consult Cardiology Routine Ordered Studies 04/15/19 00:41 US venous doppler LE BI Urgent BILATERAL LOWER EXTREMITY VENOUS DOPPLER HISTORY: Right leg swelling COMPARISON STUDY: None. FINDINGS: There is normal compressibility, flow, and augmentation within the bilateral lower extremity deep venous systems. Subcutaneous edema within the right calf. Prominent right inguinal lymph nodes with the largest measuring 5.9 x 1.5 x 3.5 cm. These demonstrate a normal fatty hilum and thin cortex. IMPRESSION: No DVT within the right or left lower extremity. Right inguinal lymphadenopathy. Electronically signed by: Alek Musa M.D. 04/15/2019 8:08 AM Dictated: 04/15/19807 Transcribed: 04/15/19807 XR chest 1V portable HISTORY: tachypnea COMPARISON: None. FINDINGS: The cardiac silhouette is enlarged. There is interstitial and vascular thickening suggestive of mild congestive change. No pleural effusions. No pneumothorax. No focal lung consolidations to suggest pneumonia. IMPRESSION: Cardiomegaly with mild congestive change. Electronically signed by: Alek Musa M.D. 04/15/2019 8:18 AM Dictated: 04/15/19816 Transcribed: 04/15/19816 Hospital Course (1) Cellulitis of leg, right: Present on admission with RLE associated with B/L LE swelling and SOB Doppler of B/L LE showed no DVT within the right or left lower extremity. Right inguinal lymphadenopathy. On Rocephin and doxy IV WBC trending down Blood cx no growth Pt does not want to stay in the hospital He said that he would follow with his PCP in [place] Will change IV abx to oral doxycycline and keflex (2) SOB (shortness of breath): Worsening SOB with minimal exertion Possible related to CHF CXR showed cardiomegaly with mild congestive change. On IV lasix 40mg BID ECHO showed mo wall motion abnormality with EF 60-65 % Has been diuresis very well with a total output of 11L in the last 48hr Lost about 16kg (from 200kg to 244kg) Pt refused to stay in the hospital for 1 more night to continue diuresis Will change Lasix to oral Will need to check BMP in 1 week to monitor creatinine and electrolytes Continue fluid restriction to 2L daily (3) Morbid obesity with BMI of 60.0-69.9, adult: Counseling on weight loss Follow a healthy diet EMELY Had sleep study done few years ago Never follow with the specialist to get arrange for the Cpap Advised pt to follow up with the specialist in [place] to get arranged for the Cpap Pre-diabetes Hba1c 6 Follow a healthy diet diet Counseling on weight loss DVT px On Lovenox Ambulates Code status Full code Disposition Will discharge home today since pt refused to stay 1 more night Total Time Total Time Spent Total Time Spent (In Minutes): 35 minutes Total Time Includes: Examination of the Patient, Discharge Planning, Medication Reconciliation, Communication With Other Providers and Other Discharge Plan Discharge Items Patient Disposition: Home - Self-Care Reason For Visit: CHF;PRIVATE ROOM PER PX/FAMILY REQUEST Discharge Diagnosis: Cellulitis of leg, right SOB (shortness of breath) Morbid obesity with BMI of 60.0-69.9, adult Pre-diabetes Sleep apnea Condition: Good Discharge Goals: Decrease discomfort, Improve disease control, Improve function and Increase independence Activity: Resume your previous activity Activity Comment: as tolerated Non-emergency contact: Primary Care Provider Call non-emergency contact if: you have any medication questions and your temperature is above 101 Follow-up/Referrals: PCP,NO [Primary Care Provider] - Diet: Heart Healthy and Low Sodium (2gm) Fluids: 2000ml (8 cups) Addtl Provider Instructions: Does not want to stay for another night in the hospital Follow up with your primary care provider in [place] You will need to arrange for a sleep study (Your physician will arrange the referral for you) Complete course of antibiotic with doxycycline and Keflex Check BMP in 1 week to monitor electrolytes and kidney function Fluid restriction at 2L daily Follow up a low salt diet Counseling on weight loss Seek medical attention if you develop any fever and worsening shortness of breath Prescriptions: New doxycycline hyclate 100 mg Capsule 100 mg PO BID 7 Days Qty: 14 RF: 0 potassium chloride [Klor-Con M20] 20 mEq Tablet,Er Particles/Crystals 20 meq PO DAILY Qty: 30 RF: 0 cephalexin 500 mg Capsule 500 mg PO BID 7 Days Qty: 14 RF: 0 metoprolol tartrate 25 mg Tablet 12.5 mg PO BID 30 Days Qty: 30 RF: 0 furosemide [Lasix] 40 mg tablet 40 mg PO DAILY Qty: 30 RF: 0 Continued acetaminophen [Tylenol] 325 mg Tablet 650 mg PO Q6H PRN (Reason: Pain) RF: 0 cranberry extract 500 mg Capsule PO DIRECTED RF: 0 Black Elderberry 1 tab PO DAILY RF: 0 Stand-Alone Forms: Check I'm Here/Other Patient Handouts: Prediabetes, Diabetes Meal Planning Discharge Orders: Discharge Order (Routine); Ordered 04/17/19 Ordered By: Juliet Jimenez Admission Data Admit Date/Time: 04/15/19 04:25 Attending Provider: Juliet Jimenez Admit Provider: Marco A Tracey Primary Care Provider: PCP,NO Other Providers: Marco A Tracey ; Herb Lujan Service: Telemetry
[2019-04-17] MEDS ORDERED: DOXYCYCLINE HYCLATE 100 MG CAP PO SCH (21:00)
[2019-04-17] MEDS ORDERED: cephALEXin 500 MG CAP PO SCH (21:00)
[2019-04-17] MEDS ORDERED: cephALEXin 250 MG CAP PO SCH (21:00)
== END 2019-04-17 18:15 | disposition home or self-care (01) | DRG 603 ==
LOC: ED 00:13 → 2E 04:25

== ENCOUNTER 2023-08-24 11:09 | Inpatient (IN) ==
[2023-08-24] MEDS: SODIUM CHLORIDE 0.9% 1,000 ML IV SCH ×2 (12:33→14:34)
[2023-08-24 12:45] LABS: iSTAT Creatinine 0.5 mg/dl (0.6-1.3); iSTAT Ionized Calcium 1.06 mmol/l (1.12-1.32); iSTAT Potassium 3.5 mmol/L (3.3-5.0)
[2023-08-24 12:48] LABS: Basophils # (auto) 0.05 K/uL (0.00-0.20); Basophils % (auto) 0.3 %; Eosinophils # (auto) 0.02 K/uL (0.00-0.50); Eosinophils % (auto) 0.1 %; Hematocrit (blood only) 42.3 % (42.0-52.0); Hemoglobin 13.7 g/dl (14.0-18.0); Immature Granulocytes # (auto) 0.08 K/uL (0.01-0.20); Immature Granulocytes % (auto) 0.6 %; Lymphocytes # (auto) 1.26 K/uL (1.20-3.40); Lymphocytes % (auto) 8.8 %; Mean Corpuscular Hemoglobin 29.6 pg (25.0-34.0); Mean Corpuscular Hgb Conc 32.4 g/dL (32.0-36.0); Mean Corpuscular Volume 91.4 fL (80.0-100.0); Mean Platelet Volume 9.2 fL (9.4-12.4); Monocytes # (auto) 1.07 K/uL (0.11-0.59); Monocytes % (auto) 7.5 %; Neutrophils # (auto) 11.83 K/uL (1.40-6.50); Neutrophils % (auto) 82.7 %; Platelet Count 276 K/uL (130-400); RDW Coefficient of Variation 14.2 % (11.5-14.5); RDW Standard Deviation 47.6 fL (36.4-46.3); Red Blood Count 4.63 M/uL (4.70-6.10); White Blood Count 14.31 K/ul (4.8-10.8)
--- NOTE | 2023-08-24 12:56 | XRay Report ---
XR chest 1V portable CLINICAL HISTORY: Sepsis. COMPARISON STUDY: Chest radiograph April 15, 2019. FINDINGS: No pneumothorax or pleural effusion is present. Cardiomegaly is unchanged. Mediastinal cont ours are stable. There is no consolidation to suggest pneumonia. No evidence for overt pulmonary lashell a. Appearance of the chest is similar to prior study. IMPRESSION: No acute cardiopulmonary findings. Stable cardiomegaly. ACT 112: Negative or not required by law. Electronically signed by: Walter Mayen M.D. 08/24/2023 12:55 PM
[2023-08-24] MEDS ORDERED: VANCOMYCIN HCL 2,500 MG in SODIUM CHLORIDE 0.9% 500 ML IV ONE (13:00)
[2023-08-24] MEDS ORDERED: CLINDAMYCIN/D5W 900 MG/50 ML BAG IV ONE (13:00)
[2023-08-24] MEDS ORDERED: PIPERACILLIN/TAZOBACTAM 4.5 GM/120 ML BAG IV ONE ×2 (13:00→19:15)
[2023-08-24] MEDS ORDERED: VANCOMYCIN CONSULT ACTIVE PRN (13:00)
[2023-08-24 13:19] LABS: INR 1.1 (0.9-1.1); Partial Thromboplastin Ratio 1.2; Partial Thromboplastin Time 34 Seconds (21-31); Prothrombin Time 11.5 Seconds (9.0-12.0)
[2023-08-24] MEDS ORDERED: MoRPHine SULFATE 10 MG/ML CARP/VIAL IV STA (13:19)
[2023-08-24] MEDS ORDERED: ONDANSETRON INJ 2 MG/ML 2 ML VIAL IV STA (13:19)
[2023-08-24 13:20] LABS: Alanine Aminotransferase 15 U/L (7-52); Albumin Level 3.9 gm/dl (3.4-5.0); Alkaline Phosphatase 78 U/L (34-104); Anion Gap 8 (3-11); Aspartate Aminotransferase 16 U/L (13-39); BUN Creatinine Ratio 19.2 (10-20); Bilirubin,Total 1.4 mg/dl (0.2-1.0); Blood Urea Nitrogen 10 mg/dl (6-23); Calcium 8.6 mg/dl (8.6-10.3); Carbon Dioxide 32 mmol/L (21-32); Chloride 96 mmol/L (98-107); Est GFR (African American) 143.1 ml/min; Est GFR (Non-African American) 123.5 ml/min; Glucose 109 mg/dl (70-99(Fasting)); Magnesium 1.8 mg/dl (1.7-2.4); Potassium 3.7 mmol/L (3.5-5.1); Sodium 136 mmol/L (136-145); Troponin I High Sensitivity 6.9 pg/ml (0-20)
--- NOTE | 2023-08-24 13:22 | Emergency Department Note ---
ED Visit Note I was consulted by the Advanced Practice Provider, Jessica Chaney PA-C. I performed a substantive portion of the visit. This includes aspects of: History: Patient is a 52-year-old male presenting with an abnormality on his scrotum. Patient reports that he has "a piece of flesh" on his scrotum that he would like to be removed. States that his scrotum has been swollen for a while. He notes the wound as of a few days ago. Denies any history of diabetes. Denies any issues voiding. He does report he had a fever last night. On physical examination, the patient is morbidly obese. He does have marked scrotal edema bilaterally. Scrotum is erythematous bilaterally. He does have a necrotic wound that is draining foul-smelling substance on the posterior aspect of his left scrotum. No palpable crepitus. 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 MDM: - Laboratory workup interpreted by myself showed leukocytosis with left shift; elevated lactate (2.3); normal troponin; elevated CRP (16.36); normal procalcitonin - CT abdomen/pelvis with IV contrast showed marked scrotal edema with findings consistent with a 5 x 4 cm posterior scrotal abscess. Findings consistent with a gas-forming infectious process. - Patient given IV zosyn, vancomycin and clindamycin. - Discussed case with GINA Reyna with urology. Plans to evaluate patient. - Urology to take patient to OR. .
[2023-08-24] MEDS ORDERED: SODIUM CHLORIDE 0.9% 1,000 ML IV ONE (13:24)
[2023-08-24 13:30] LABS: C Reactive Protein 16.36 mg/dl (0-0.5)
--- NOTE | 2023-08-24 13:40 | Emergency Department Note ---
Impression & Plan Fredy's gangrene, Sepsis, Morbid obesity with BMI of 60.0-69.9, adult ED Provider Note CHIEF COMPLAINT: "There is something in my groin. I was hoping you could cut it out" HISTORY OF PRESENT ILLNESS: This 52-year-old male patient presents to the emergency department via private vehicle for evaluation of "there is something in my groin. I was hoping you could cut it out". The patient states that over the past several months, he has noticed "something growing" in the groin. Upon further questioning and evaluation, the patient notes that it is actually in the scrotum. Over the past 2 to 3 days, he has noticed that the scrotum has become much more swollen and red as well as painful. The patient states it feels like pinpricks to his scrotum. He states there is a growth on the left side which does seem to be causing some discomfort. He denies any dysuria, urinary frequency, urinary hesitancy. He is not diabetic. He does have history of pickwickian syndrome and morbid obesity. He does also have a history of psoriasis, but is not currently taking any medications for the psoriasis. The patient states that last night, he had chills and believes he had a fever but did not check his temperature. He denies any abdominal pain or flank pain. No injury to the area, but does report a history of remote trauma to the scrotum when he was 14 years old. REVIEW OF SYSTEMS: A 10 system review of systems was performed with positives and pertinent negatives listed in the history of present illness. All other systems were reviewed and are negative. ALLERGIES: None PHYSICAL EXAM: VITALS: Vitals are noted on the nurse's note and reviewed by myself. Vital signs stable. GENERAL: This is a 52-year-old male, in no acute distress, nondiaphoretic, well- developed well-nourished. SKIN: Erythematous, flaky, patchy lesions on the skin diffusely with fine scales. The skin was otherwise without obvious edema or bruising. There is no tenting of the skin. Capillary refill less than 2 seconds. HEAD: Normocephalic atraumatic. EYES: Conjunctivae without injection, sclerae without icterus. NECK: Supple without nuchal rigidity. No lymphadenopathy. No JVD. HEART: Regular rate and rhythm without murmurs gallops or rubs. LUNGS: Clear to auscultation bilaterally without wheezes, rales or rhonchi. No retractions or accessory muscle use. ABDOMEN: Positive bowel sounds x 4. Soft, nontender, without masses or organomegaly. No guarding or rebound tenderness. : Extremely edematous and erythematous scrotum. There is an area on the posterior aspect on the left side of the scrotum which is necrotic and blackened. There is no active bleeding or discharge. There is tenderness to palpation. At this time, the edema and erythema does not appear to be extending to the perineum, but difficult to assess due to the patient's extremely large body habitus and difficulty with positioning and rolling due to discomfort in the hips. MUSCULOSKELETAL: No muscle atrophy, erythema, or edema noted. Full range of motion without joint tenderness in all extremities. No tenderness to palpation. Normal gait. Strength 5/5 throughout. NEURO: Patient was alert and oriented to person place and time. No focal neurological deficits. An order was placed for continuous desk reporter. The monitor showed a sinus tachycardia at a ventricular rate of 111 bpm, per my interpretation. EMERGENCY DEPARTMENT COURSE: The patient was seen and evaluated as above. The patient presents for what he describes as a lesion in his groin. Upon further evaluation and discussion with the patient, he has erythema and necrotic tissue within the scrotum. He is tachycardic on initial evaluation. He does report subjective fever yesterday. 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 Initial sepsis orders were placed. IV access was obtained. The patient was medicated with IV fluids. Ordered for CT imaging of the abdomen/pelvis was placed. I did discuss the case with the ED pharmacist. Recommendation made to treat the patient with clindamycin, vancomycin, and Zosyn. These antibiotics and additional IV fluids to meet 30 ml/kg (IBW) were ordered. I discussed the case with Dr. Gomez. She did see and evaluate the patient. Labs were reviewed. There was a leukocytosis of 14,000. Mild anemia with a hemoglobin of 13.7. No thrombocytopenia. Renal, hepatic function and electrolytes without significant abnormality. Lactic acid was elevated at 2.3. C-reactive protein is elevated at 16.36. Procalcitonin 0.23. Blood cultures are pending. CT imaging was performed and was concerning for a scrotal abscess with gas and edema within the scrotum and stranding extending to the base of the scrotum/penis and perineum consistent with cellulitis. Of note, the patient was medicated with morphine due to his complaints of pain. He was given 8 mg of morphine prior to CT scan. Upon return to the room, it was noted that the patient's O2 saturation was in the 60s. The patient was placed on oxygen and O2 saturation was immediately returned to the 90s. We did consult with urology. Spoke with Maribell Bond PA-C. She did evaluate the patient at the bedside. She did speak with Dr. Hanna and recommends the patient be admitted to the medicine service and notes that the patient will be taken to the operating room from the emergency department. Did recommend switching the patient from Zosyn to cefepime and continuing with vancomycin. At this point, the patient had not received the Zosyn and was only now being administered the vancomycin. The Zosyn was discontinued and the patient was switched to cefepime at the recommendation of urology. I discussed case with automotive parts manager. I discussed the case with Dr. Saenz, [facility] hospitalist physician. He did agree to see and evaluate the patient regarding admission. Please see hospitalist and urology dictation regarding ongoing management care of this patient. Differential diagnosis includes Ban's gangrene, cellulitis, abscess, STI, urinary tract infection, psoriasis, foreign body, skin lesion, malignancy, among others I have personally spent greater than 45 minutes of critical care time in the direct management of this patient to assess and manage fredy's gangrene, sepsis, and hypoxia. This includes bedside care, interpretation of diagnostic studies, and testing, discussion with consultants, patient, and family members, documentation time, and other required patient management activities. This 45 minutes is in excess of all separately billable procedures. I attest that I have personally reviewed the patient's current medication list. Patient was found to have an elevated blood pressure and was referred to their primary doctor for recheck and further treatment. The chart was completed utilizing [employer] voice recognition software. Grammatical errors, random word insertions, pronoun errors, and incomplete sentences are an occasional consequence of this system due to software limitations, ambient noise, and hardware issues. Any formal questions or concerns about the content, text, or information contained within the body of this dictation should be directly addressed to the provider for clarification. Past Med/Surg History Medical History Psoriasis Surgical History (Updated 08/24/23 @ 15:01 by Obed Saenz MD) History of appendectomy History of cholecystectomy Social History Smoking Status: Current some day smoker Second Hand Exposure: Yes; Hx Alcohol Use: Yes Alcohol type: hard liquor Hx Substance Use: No Preferred Language: Serbian Communication Ability: Effective Director Facilities Maintenance Required: No Beliefs That Will Affect Care: None Current Living Situation: Spouse Feels Safe at Home: Yes Assistive Devices: None Allergies Allergies Allergy/AdvReac Type Severity Reaction Status Date / Time No Known Allergies Allergy Unverified 04/15/19 01:01 Home Meds Home Medications Medication Instructions Recorded Confirmed Black Elderberry 1 tab PO DAILY 04/15/19 04/15/19 acetaminophen 325 mg tablet 650 mg PO Q6H PRN Pain 04/15/19 04/15/19 (Tylenol) cranberry extract 500 mg capsule 0 mg PO DIRECTED 04/15/19 04/15/19 Previous Rx's Medication Instructions Recorded furosemide 40 mg tablet (Lasix) 40 mg PO DAILY #30 tabs 04/17/19 potassium chloride 20 mEq 20 meq PO DAILY #30 tabs 04/17/19 tablet,extended release(part/cryst) (Klor-Con M) Results & Data (ED) Vital Signs Vital Signs - 24 hr 08/24/23 11:18 08/24/23 14:12 08/24/23 14:15 Temperature 37.0 C Temperature Source Temporal Artery Scan Pulse Rate 110 H Pulse Rate [Apical] 95 H Pulse Rate from SpO2 Sensor Pulse Rhythm Regular Pulse Strength Normal Respiratory Rate 20 23 Respiratory Effort / Characteristics Non-Labored Respiratory Depth Normal Blood Pressure 145/80 H Blood Pressure [Right Arm] 123/79 Blood Pressure Mean 101 Blood Pressure Mean [Right Arm] 93 Blood Pressure Position Sitting Pulse Oximetry 94 64 L 89 L Oxygen Delivery Method Room Air Oxymask Oxymask Oxygen Flow Rate 0 6 Sepsis Recent Fever Within 48 Hours No Sepsis New/Unexplained Change in Mental Status No Sepsis Action Taken by Nursing No Action Required Oxygen Flow Rate - Titration 6 Pulse Oximetry Post Tiitration 89 L 08/24/23 14:16 08/24/23 14:16 08/24/23 14:17 Temperature Temperature Source Pulse Rate 94 H 107 H Pulse Rate [Apical] Pulse Rate from SpO2 Sensor 92 H Pulse Rhythm Pulse Strength Respiratory Rate 20 Respiratory Effort / Characteristics Respiratory Depth Blood Pressure 110/77 Blood Pressure [Right Arm] Blood Pressure Mean 88 Blood Pressure Mean [Right Arm] Blood Pressure Position Pulse Oximetry 89 L 96 Oxygen Delivery Method Oxymask Oxygen Flow Rate 6 6 Sepsis Recent Fever Within 48 Hours Sepsis New/Unexplained Change in Mental Status Sepsis Action Taken by Nursing Oxygen Flow Rate - Titration 6 Pulse Oximetry Post Tiitration 96 08/24/23 14:58 Temperature Temperature Source Pulse Rate 105 H Pulse Rate [Apical] Pulse Rate from SpO2 Sensor Pulse Rhythm Pulse Strength Respiratory Rate 22 Respiratory Effort / Characteristics Respiratory Depth Blood Pressure 114/74 Blood Pressure [Right Arm] Blood Pressure Mean Blood Pressure Mean [Right Arm] Blood Pressure Position Pulse Oximetry 99 Oxygen Delivery Method Oxymask Oxygen Flow Rate 6 Sepsis Recent Fever Within 48 Hours Sepsis New/Unexplained Change in Mental Status Sepsis Action Taken by Nursing Oxygen Flow Rate - Titration Pulse Oximetry Post Tiitration Laboratory Data 08/24/23 12:10 08/24/23 12:10 Lab Results 08/24/23 08/24/23 Range/Units 12:10 12:33 WBC 14.31 H (4.8-10.8) K/ul RBC 4.63 L (4.70-6.10) M/uL Hgb 13.7 L (14.0-18.0) g/dl POC Hgb 15.0 (14.0-18.0) g/dl Hct 42.3 (42.0-52.0) % POC Hct 44 (42-52) % MCV 91.4 (80.0-100.0) fL MCH 29.6 (25.0-34.0) pg MCHC 32.4 (32.0-36.0) g/dL RDW Std Deviation 47.6 H (36.4-46.3) fL RDW Coeff of Nelson 14.2 (11.5-14.5) % Plt Count 276 (130-400) K/uL MPV 9.2 L (9.4-12.4) fL Immature Gran % (Auto) 0.6 % Neut % (Auto) 82.7 % Lymph % (Auto) 8.8 % Coffey % (Auto) 7.5 % Eos % (Auto) 0.1 % Baso % (Auto) 0.3 % Neut # (Auto) 11.83 H (1.40-6.50) K/uL Lymph # (Auto) 1.26 (1.20-3.40) K/uL Coffey # (Auto) 1.07 H (0.11-0.59) K/uL Eos # (Auto) 0.02 (0.00-0.50) K/uL Baso # (Auto) 0.05 (0.00-0.20) K/uL Immature Gran # (Auto) 0.08 (0.01-0.20) K/uL PT 11.5 (9.0-12.0) Seconds INR 1.1 (0.9-1.1) APTT 34 H (21-31) Seconds PTT Ratio 1.2 POC Sodium 135 (135-144) mmol/L Sodium 136 (136-145) mmol/L POC Potassium 3.5 (3.3-5.0) mmol/L Potassium 3.7 (3.5-5.1) mmol/L POC Chloride 94 L (101-112) mmol/L Chloride 96 L (98-107) mmol/L Carbon Dioxide 32 (21-32) mmol/L POC Total CO2 32 H (24-31) mmol/L Anion Gap 8 (3-11) POC Anion Gap 13.0 L (16-25) mmol/L POC BUN 9 (7-18) mg/dl BUN 10 (6-23) mg/dl Creatinine 0.52 L (0.6-1.4) mg/dl POC Creatinine 0.5 L (0.6-1.3) mg/dl Est Cr Clr Drug Dosing Not Reportable Est GFR ( Amer) 143.1 ml/min Est GFR (Non-Af Amer) 123.5 ml/min BUN/Creatinine Ratio 19.2 (10-20) Glucose 109 H (70-99(Fasting)) mg/dl POC Glucose (other) 113 H (70-99) mg/dl Lactate 2.3 H* (0.4-2.0) mmol/L Calcium 8.6 (8.6-10.3) mg/dl POC Ioniz Calcium Augustus 1.06 L (1.12-1.32) mmol/l Magnesium 1.8 (1.7-2.4) mg/dl Total Bilirubin 1.4 H (0.2-1.0) mg/dl Direct Bilirubin TNP AST 16 (13-39) U/L ALT 15 (7-52) U/L Alkaline Phosphatase 78 (34-104) U/L Troponin I High Sens 6.9 (0-20) pg/ml C-Reactive Protein 16.36 H (0-0.5) mg/dl Total Protein 7.0 (6.0-8.3) gm/dl Albumin 3.9 (3.4-5.0) gm/dl Procalcitonin 0.23 (0-0.5) ng/ml Administered Medications Linezolid (Zyvox) 600 mg in 300 mls @ 300 mls/hr IV Q12H KIM Stop: 08/26/23 19:59 Last Admin: 08/24/23 19:37 Dose: 300 mls/hr Documented By: MANSI Clindamycin Phosphate (Cleocin/D5w) 900 mg in 50 mls @ 100 mls/hr IV Q8H [facility] Stop: 08/26/23 19:59 Last Admin: 08/24/23 19:36 Dose: 100 mls/hr Documented By: MANSI Piperacillin Sod/Tazobactam Sod (Zosyn) 4.5 gm in 120 mls @ 240 mls/hr IV NOW ONE Stop: 08/24/23 19:44 Last Admin: 08/24/23 19:37 Dose: 240 mls/hr Documented By: MANSI Discontinued Medications Bupivacaine HCl (Bupivacaine 0.5 % 5 Mg/1 Ml Mpf 30ml Vial) Confirm Administered Dose 30 ml .ROUTE .STK-MED ONE Stop: 08/24/23 15:31 Last Admin: 08/24/23 16:54 Dose: Not Given Documented By: DEVYN Sodium Chloride (Nss) 1,000 mls @ 999 mls/hr IV .Q1H1M KIM Stop: 08/24/23 14:00 Last Infusion: 08/24/23 19:35 Dose: Infused Documented By: Admin: 08/24/23 14:34 Dose: 999 mls/hr Documented By: Infusion: 08/24/23 13:35 Dose: Infused Documented By: Admin: 08/24/23 12:33 Dose: 999 mls/hr Documented By: CPB Piperacillin Sod/Tazobactam Sod (Zosyn) 4.5 gm in 120 mls @ 240 mls/hr IV NOW ONE Stop: 08/24/23 13:29 Last Admin: 08/24/23 14:28 Dose: Not Given Documented By: NRB Clindamycin Phosphate (Cleocin/D5w) 900 mg in 50 mls @ 100 mls/hr IV NOW ONE Stop: 08/24/23 13:29 Last Infusion: 08/24/23 14:29 Dose: Infused Documented By: Admin: 08/24/23 14:02 Dose: 100 mls/hr Documented By: CPB Vancomycin HCl 2,500 mg/ (Sodium Chloride) 550 mls @ 200 mls/hr IV NOW ONE Stop: 08/24/23 15:44 Last Infusion: 08/24/23 19:36 Dose: Infused Documented By: Admin: 08/24/23 14:31 Dose: 200 mls/hr Documented By: CPB Sodium Chloride (Nss) 1,000 mls @ 999 mls/hr IV .Q1H1M ONE Stop: 08/24/23 14:24 Last Infusion: 08/24/23 19:35 Dose: Infused Documented By: Admin: 08/24/23 14:39 Dose: 999 mls/hr Documented By: NRB Cefepime HCl (Maxipime) 2,000 mg in 20 mls @ 5 mls/min IV NOW STA; Protocol Stop: 08/24/23 14:32 Last Admin: 08/24/23 14:31 Dose: 5 mls/min Documented By: CPB Sodium Chloride (Nss) 250 mls @ 999 mls/hr IV .Q16M ONE Stop: 08/24/23 14:49 Last Infusion: 08/24/23 15:05 Dose: Infused Documented By: Admin: 08/24/23 14:40 Dose: 999 mls/hr Documented By: NRB Ioversol (Optiray 320 125ml) 118 ml IV ONCE ONE Stop: 08/24/23 13:59 Last Admin: 08/24/23 13:49 Dose: 118 ml Documented By: SH Miscellaneous (Rapid Sequence Induction Bag) Confirm Administered Dose 1 each N/A .STK-MED ONE Stop: 08/24/23 14:14 Last Admin: 08/24/23 14:30 Dose: Not Given Documented By: NRB Morphine Sulfate (Morphine Sulfate 10 Mg/Ml Carp/Vial) 8 mg IV NOW STA Stop: 08/24/23 13:20 Last Admin: 08/24/23 13:32 Dose: 8 mg Documented By: CPB Ondansetron HCl (Ondansetron Inj 2 Mg/Ml 2 Ml Vial) 4 mg IV NOW STA Stop: 08/24/23 13:20 Last Admin: 08/24/23 13:31 Dose: 4 mg Documented By: CPB Imaging Data Radiologist's Impression: Abdomen/Pelvis CT 08/24/23 11:43 CT OF THE ABDOMEN AND PELVIS WITH CONTRAST CLINICAL HISTORY: scrotum/perineal redness/edema, eval for fourniers COMPARISON STUDY: None. TECHNIQUE: Following IV administration of 118 mL of Optiray, axial images of the abdomen and pelvis were obtained from the lung bases to the proximal femurs. Images were reviewed in the axial, sagittal, and coronal planes. IV contrast was administered without complication. Automated exposure control was utilized for the study. A dose lowering technique was utilized adhering to the principles of ALARA. CT DOSE: 2615.01 mGy.cm FINDINGS: No pneumatosis, free air or portal venous gas is present. There is hepatic steatosis. No biliary or pancreatic ductal dilatation is present. Spleen, adrenal glands, kidneys and pancreas are unremarkable. The appendix is surgically absent. There is no evidence for a bowel obstruction. There are multiple mildly enlarged para-aortic, iliac and inguinal lymph nodes. Index right inguinal lymph node on image [id number] of [id number] measures 2.7 x 1.8 cm. Index right external iliac lymph node on image urinating measures 3.3 x 2.2 cm. Note is made of marked scrotal edema. There is a gas and fluid containing posterior scrotal fluid collection with air-fluid level. This collection measures 5.8 x 4 cm. Several additional suspected small rim-enhancing fluid collections within the scrotum measure up to 1.7 cm. These favor multifocal abscesses. Possible skin ulceration associated with the largest abscess. There is no gas within the perineum. No additional foci of soft tissue gas are present. Cellulitis extends to the base of the penis/scrotum and the perineum. Severe right hip osteoarthritis is incidentally noted. IMPRESSION: 1. Marked scrotal edema. Stranding which extends to the base of the scrotum/penis and perineum consistent with cellulitis. The findings are consistent with an infectious process. Associated gas and fluid containing 5 x 4 cm posterior scrotal fluid consistent with an abscess. Suspected additional smaller scrotal abscesses as described above. In the absence of an open wound, the findings are consistent with a gas-forming infectious process with scrotal abscess formation. The gas is localized to the scrotum. No additional sites of soft tissue gas. 2. Multiple mildly enlarged para-aortic, bilateral iliac and inguinal lymph nodes. These are nonspecific and may be reactive. However, a follow-up CT of the abdomen and pelvis in 6 months to ensure stability/resolution is recommended. ACT 112: Negative or not required by law. Electronically signed by: Walter Mayen M.D. 08/24/2023 2:25 PM Chest X-Ray 08/24/23 11:44 XR chest 1V portable CLINICAL HISTORY: Sepsis. COMPARISON STUDY: Chest radiograph April 15, 2019. FINDINGS: No pneumothorax or pleural effusion is present. Cardiomegaly is unchanged. Mediastinal contours are stable. There is no consolidation to suggest pneumonia. No evidence for overt pulmonary edema. Appearance of the chest is similar to prior study. IMPRESSION: No acute cardiopulmonary findings. Stable cardiomegaly. ACT 112: Negative or not required by law. Electronically signed by: Walter Mayen M.D. 08/24/2023 12:55 PM Discharge Plan Visit Data Chief Complaint: Groin Pain Stated Complaint: GROIN PAIN ED Provider: Katherine Gomez ED Midlevel Provider: Jessica Chaney Discharge Problem: Fredy's gangrene, Sepsis, Morbid obesity with BMI of 60.0-69.9, adult Patient Disposition: Admitted As Inpatient Discharge Instructions Interventions: ED Discharge Assessment Last Done: 08/24/23 14:58
--- NOTE | 2023-08-24 13:49 | Electrocardiogram Report ---
Test Reason : Blood Pressure : / mmHG Vent. Rate : 099 BPM Atrial Rate : 099 BPM P-R Int : 220 ms QRS Dur : 098 ms QT Int : 346 ms P-R-T Axes : 045 -59 069 degrees QTc Int : 444 ms Sinus rhythm with 1st degree A-V block Left anterior fascicular block Abnormal ECG When compared with ECG of 15-APR-2019 05:58, No significant change Confirmed by Kaleb Gallo ([id number]) on 08/24/2023 1:49:05 PM Referred By: Confirmed By:Kaleb Gallo
[2023-08-24] MEDS ORDERED: OPTIRAY 320 125ml IV ONE (13:58)
[2023-08-24] MEDS ORDERED: RAPID SEQUENCE INDUCTION BAG ONE (14:13)
--- NOTE | 2023-08-24 14:26 | CT Scan Report ---
CT OF THE ABDOMEN AND PELVIS WITH CONTRAST CLINICAL HISTORY: scrotum/perineal redness/edema, eval for fourniers COMPARISON STUDY: None. TECHNIQUE: Following IV administration of 118 mL of Optiray, axial images of the abdomen and pelvis w ere obtained from the lung bases to the proximal femurs. Images were reviewed in the axial, sagittal, and coronal planes. IV contrast was administered without complication. Automated exposure control w as utilized for the study. A dose lowering technique was utilized adhering to the principles of DANILO Gilbert. CT DOSE: 2615.01 mGy.cm FINDINGS: No pneumatosis, free air or portal venous gas is present. There is hepatic steatosis. No bi liary or pancreatic ductal dilatation is present. Spleen, adrenal glands, kidneys and pancreas are un remarkable. The appendix is surgically absent. There is no evidence for a bowel obstruction. There ar e multiple mildly enlarged para-aortic, iliac and inguinal lymph nodes. Index right inguinal lymph no de on image 438 of 501 measures 2.7 x 1.8 cm. Index right external iliac lymph node on image urinatin g measures 3.3 x 2.2 cm. Note is made of marked scrotal edema. There is a gas and fluid containing po sterior scrotal fluid collection with air-fluid level. This collection measures 5.8 x 4 cm. Several a dditional suspected small rim-enhancing fluid collections within the scrotum measure up to 1.7 cm. Th silas favor multifocal abscesses. Possible skin ulceration associated with the largest abscess. There i s no gas within the perineum. No additional foci of soft tissue gas are present. Cellulitis extends t o the base of the penis/scrotum and the perineum. Severe right hip osteoarthritis is incidentally not ed. IMPRESSION: 1. Marked scrotal edema. Stranding which extends to the base of the scrotum/penis and perineum consis tent with cellulitis. The findings are consistent with an infectious process. Associated gas and flui d containing 5 x 4 cm posterior scrotal fluid consistent with an abscess. Suspected additional smalle r scrotal abscesses as described above. In the absence of an open wound, the findings are consistent with a gas-forming infectious process with scrotal abscess formation. The gas is localized to the scr otum. No additional sites of soft tissue gas. 2. Multiple mildly enlarged para-aortic, bilateral iliac and inguinal lymph nodes. These are nonspeci fic and may be reactive. However, a follow-up CT of the abdomen and pelvis in 6 months to ensure stab ility/resolution is recommended. ACT 112: Negative or not required by law. Electronically signed by: Walter Mayen M.D. 08/24/2023 2:25 PM
[2023-08-24] MEDS ORDERED: CEFEPIME 2,000 MG/20 ML VIAL IV STA (14:29)
[2023-08-24] MEDS ORDERED: SODIUM CHLORIDE 0.9% 250 ML IV ONE (14:34)
--- NOTE | 2023-08-24 14:58 | History & Physical Report ---
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 Wo rsened overnight and came to the hospital. Afebrile, tachycardic and hypertensive. Initial labs showed a leukocytosis of 14.3, creatinine of 0.52, lactate of 2.3. CT scan performed showed a 3 to 4 cm gas-filled collection in the inferior part of the left scrotum consistent with a necrotizing infection. Allergies Allergy/AdvReac Type Severity Reaction Status Date / Time No Known Allergies Allergy Unverified 04/15/19 01:01 Home Medications Medication Instructions Recorded Confirmed Type Black Elderberry 1 tab PO DAILY 04/15/19 04/15/19 History acetaminophen 325 mg tablet 650 mg PO Q6H PRN Pain 04/15/19 04/15/19 History (Tylenol) cranberry extract 500 mg capsule 0 mg PO DIRECTED 04/15/19 04/15/19 History furosemide 40 mg tablet (Lasix) 40 mg PO DAILY #30 tabs 04/17/19 Rx potassium chloride 20 mEq 20 meq PO DAILY #30 tabs 04/17/19 Rx tablet,extended release(part/cryst) (Klor-Con M) Past Med/Surg History Medical History (Updated 08/24/23 @ 15:16 by Obed Saenz MD) Psoriasis No acute medical problems Surgical History (Updated 08/24/23 @ 15:01 by Obed Saenz MD) History of appendectomy History of cholecystectomy Social History Smoking Status: Current some day smoker Second Hand Exposure: Yes; Hx Alcohol Use: Yes Alcohol type: hard liquor Hx Substance Use: No Preferred Language: Italian Communication Ability: Effective Metal Refiner Required: No Beliefs That Will Affect Care: None Current Living Situation: Spouse Feels Safe at Home: Yes Assistive Devices: None Review of Systems 14 point review of systems negative outside of what is listed above in HPI Physical Exam Physical Exam: General: Alert and oriented, no acute distress HEENT: Normocephalic, mucous membranes moist Pulmonary: Nonlabored respirations Abdomen: Nondistended : Buried penis, significant scrotal edema. 4cm area of eschar on inferior portion of scrotum consistent with fourniers. Extremities: Moves all 4 spontaneously Neuro: No gross deficits Skin: Warm, dry, no rashes noted Results & Data Vital Signs (Past 12 Hours) Vital Signs Temp Pulse Pulse Resp BP BP Pulse Ox 08/24/23 14:17 107 H 08/24/23 14:16 94 H 20 110/77 96 08/24/23 14:16 89 L 08/24/23 14:15 95 H 23 123/79 89 L 08/24/23 14:12 64 L 08/24/23 11:18 37.0 C 110 H 20 145/80 H 94 O2 Del Method O2 Flow Rate 08/24/23 14:17 08/24/23 14:16 6 08/24/23 14:16 Oxymask 6 08/24/23 14:15 Oxymask 6 08/24/23 14:12 Oxymask 0 08/24/23 11:18 Room Air
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
[2023-08-24] MEDS ORDERED: LIDOCAINE 2% 2 ML VIAL/AMP(20MG/ML) INFIL ONE (15:14)
[2023-08-24] MEDS ORDERED: PROPOFOL IV EMULSION 10 MG/ML 20 ML VIAL IV ONE (15:14)
[2023-08-24] MEDS ORDERED: SUCCINYLCHOLINE CHLORIDE 20 MG/ML 10 ML VIAL IV ONE (15:14)
[2023-08-24] MEDS ORDERED: ONDANSETRON INJ 2 MG/ML 2 ML VIAL ONE (15:14)
[2023-08-24] MEDS ORDERED: MIDAZOLAM HCL 1 MG/ML 2ML VIAL ONE (15:14)
[2023-08-24] MEDS ORDERED: HYDROmorphone INJ 2 MG/ML SYR/VIAL ONE (15:14)
[2023-08-24] MEDS ORDERED: DEXAMETHASONE SOD INJ 4 MG/ML VIAL ONE (15:14)
[2023-08-24] MEDS ORDERED: KETAMINE HCL 10MG/ML SYR ONE (15:22)
[2023-08-24] MEDS ORDERED: ACETAMINOPHEN 1000 MG/100 ML IV IV ONE (15:22)
[2023-08-24] MEDS ORDERED: DexMEDEtomidine HCL IV 100 MCG/ML VIAL IV ONE (15:22)
--- NOTE | 2023-08-24 15:28 | Urology Consultation ---
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 Worsened overnight and came to the hospital. Afebrile, tachycardic and hypertensive. Initial labs showed a leukocytosis of 14.3, creatinine of 0.52, lactate of 2.3. CT scan performed showed a 3 to 4 cm gas-filled collection in the inferior part of the left scrotum consistent with a necrotizing infection. Allergies Allergy/AdvReac Type Severity Reaction Status Date / Time No Known Allergies Allergy Unverified 04/15/19 01:01 Home Medications Medication Instructions Recorded Confirmed Type Black Elderberry 1 tab PO DAILY 04/15/19 04/15/19 History acetaminophen 325 mg tablet 650 mg PO Q6H PRN Pain 04/15/19 04/15/19 History (Tylenol) cranberry extract 500 mg capsule 0 mg PO DIRECTED 04/15/19 04/15/19 History furosemide 40 mg tablet (Lasix) 40 mg PO DAILY #30 tabs 04/17/19 Rx potassium chloride 20 mEq 20 meq PO DAILY #30 tabs 04/17/19 Rx tablet,extended release(part/cryst) (Klor-Con M) Patient History Medical History (Updated 08/24/23 @ 15:16 by Obed Saenz MD) Psoriasis No acute medical problems Surgical History (Updated 08/24/23 @ 15:01 by Obed Saenz MD) History of appendectomy History of cholecystectomy Social History Smoking Status: Current some day smoker Second Hand Exposure: Yes; Hx Alcohol Use: Yes Alcohol type: hard liquor Hx Substance Use: No Preferred Language: Ukrainian Communication Ability: Effective 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 4cm area of eschar on inferior portion of scrotum consistent with fourniers. Extremities: Moves all 4 spontaneously Neuro: No gross deficits Skin: Warm, dry, no rashes noted Results & Data Vital Signs (Past 12 Hours) Vital Signs Temp Pulse Pulse Resp BP BP Pulse Ox 08/24/23 14:58 105 H 22 114/74 99 08/24/23 14:17 107 H 08/24/23 14:16 94 H 20 110/77 96 08/24/23 14:16 89 L 08/24/23 14:15 95 H 23 123/79 89 L 08/24/23 14:12 64 L 08/24/23 11:18 37.0 C 110 H 20 145/80 H 94 O2 Del Method O2 Flow Rate 08/24/23 14:58 Oxymask 6 08/24/23 14:17 08/24/23 14:16 6 08/24/23 14:16 Oxymask 6 08/24/23 14:15 Oxymask 6 08/24/23 14:12 Oxymask 0 08/24/23 11:18 Room Air PG Care Time/CCT Total # of Minutes Spent Total Time Spent with Patient: Total time spent is greater than 50% in coordination of care (as documented) at patient's floor/unit and/or counseling patient: Coding Level of Care Code 52551 IN/OBS CONSULT LVL 3,45M Diagnoses Fredy's gangrene N49.3
[2023-08-24] MEDS ORDERED: ONDANSETRON INJ 2 MG/ML 2 ML VIAL IV PRN ×2 (15:29→21:35)
[2023-08-24] MEDS ORDERED: ATROPINE SULFATE 0.1 MG/ML 10ML SYR IV PRN (15:29)
[2023-08-24] MEDS ORDERED: HYDROmorphone INJ 2 MG/ML SYR/VIAL IV PRN (15:29)
[2023-08-24] MEDS ORDERED: ePHEDrine sulfate 50 MG/ML AMP IV PRN (15:29)
--- NOTE | 2023-08-24 15:29 | Anesthesiology Consultation ---
Date of Service August 24, 2023 Assessment & Plan Chart Review Chart Review: Acceptable Risk for Surgery and Patient NOT seen in Pre Admission Testing Consults Requested none History Surgery Operation Date: 08/24/23 10:50 Proposed Procedures p Scrotal Incision and Drainage - Tomi Hanna MD Height/Weight Height: 6 ft 8 in Weight: 267 kg Allergies Allergy/AdvReac Type Severity Reaction Status Date / Time No Known Allergies Allergy Unverified 04/15/19 01:01 Medications Home Medications Medication Instructions Recorded Confirmed Last Taken Black Elderberry 1 tab PO DAILY 04/15/19 04/15/19 Unknown acetaminophen 325 mg tablet 650 mg PO Q6H PRN Pain 04/15/19 04/15/19 Unknown (Tylenol) cranberry extract 500 mg capsule 0 mg PO DIRECTED 04/15/19 04/15/19 Unknown furosemide 40 mg tablet (Lasix) 40 mg PO DAILY #30 tabs 04/17/19 Unknown potassium chloride 20 mEq 20 meq PO DAILY #30 tabs 04/17/19 Unknown tablet,extended release(part/cryst) (Klor-Con M) Active Medications Generic Name Dose Route Start Last Admin Trade Name Freq PRN Reason Stop Dose Admin Vancomycin HCl 2,500 mg/ 550 mls @ 200 mls/hr 08/24/23 13:00 08/24/23 14:31 Sodium Chloride IV 08/24/23 15:44 200 mls/hr NOW ONE Administration Past Medical History Medical History (Updated 08/24/23 @ 15:16 by Obed Saenz MD) Psoriasis No acute medical problems Past Surgical History Surgical History (Updated 08/24/23 @ 15:01 by Obed Saenz MD) History of appendectomy History of cholecystectomy Social History Smoking Status: Current some day smoker Hx Alcohol Use: Yes Alcohol type: hard liquor alcohol intake frequency: a few times a month Hx Substance Use: No Physical Exam Vital Signs Last Vital Signs Temp 37.0 C 08/24/23 11:18 Pulse 105 H 08/24/23 14:58 Resp 22 08/24/23 14:58 BP 114/74 08/24/23 14:58 Pulse Ox 99 08/24/23 14:58 O2 Del Method Oxymask 08/24/23 14:58 O2 Flow Rate 6 08/24/23 14:58 Testing Laboratory Results 08/24/23 12:10 08/24/23 12:10 PT 11.5 Seconds (9.0-12.0) 08/24/23 12:10 INR 1.1 (0.9-1.1) 08/24/23 12:10 APTT 34 Seconds (21-31) H 08/24/23 12:10 08/24/23 12:33 POC Glucose (other) 113 H
[2023-08-24] MEDS ORDERED: BUPIVACAINE 0.5 % 5 MG/1 ML MPF 30ML VIAL ONE (15:30)
[2023-08-24] MEDS ORDERED: PHENYLEPHRINE 100MCG/ML 10ML SYR IV ONE (16:47)
--- NOTE | 2023-08-24 17:03 | Post Operative Brief Note ---
PG Immediate Post Op with CF Date of Surgery August 24, 2023 Pre & Post Diagnosis Operation Date: 08/24/23 10:50 Pre-Op Diagnosis: Leanne's gangrene of scrotum Post-Op Diagnosis: Leanne's gangrene of scrotum I identified the patient and participated in the time-out.: Yes Procedure Operation Date: 08/24/23 10:50 Actual Procedures p Scrotal Incision and Drainage(Not Applicable) - Tomi Hanna MD Surgeon Tomi Hanna MD Power Brake Operator Maribell Bond NP Estimated Blood Loss 100 Findings Consistent with Post-Op Diagnosis Specimens Specimen Description: 1. Scrotal abscess fluid for culture Drains Perez Catheter Anesthesia Type General Complications none
--- NOTE | 2023-08-24 17:18 | Operative Report ---
PG Post Operative Report Pre & Post Diagnosis Operation Date: 08/24/23 10:50 Pre-Op Diagnosis: Leanne's gangrene of scrotum Post-Op Diagnosis: Leanne's gangrene of scrotum I identified the patient and participated in the time-out.: Yes Procedure Operation Date: 08/24/23 10:50 Actual Procedures p Scrotal Incision and Drainage(Not Applicable) - Tomi Hanna MD Surgeon Tomi Hanna MD Meeting Planner Maribell Bond NP Estimated Blood Loss 100 Findings Consistent with Post-Op Diagnosis Necrotic tissue and gas released when incision made in inferior scrotum. Defect roughly 6 cm. Tissue was healthy and bleeding at end of case. Wound was packed. Specimens Scrotal culture Drains 16 Argentine Perez catheter Anesthesia Type General Complications none Indications 52-year-old male who presented with Leanne's gangrene. Taken emergently to the OR. Description of Procedure After informed consent was obtained, the patient was transported to the operative suite. General anesthesia was induced. They were placed in dorsal lithotomy position and prepped and draped in sterile fashion. They received preoperative he received Zosyn, clindamycin and vancomycin. It also appears that he was given cefepime in the ED.. An appropriate surgical timeout was performed. A 16 Argentine Perez catheter was advanced per urethra and the bladder and return of yellow urine was seen. Balloon was inflated with 10 cc of sterile water. Inspection of the scrotum revealed a 4 cm area of eschar on the inferior left portion corresponding to the CT scan. Using a 15 blade, a small incision was made. Immediate drainage of purulent fluid and gas was noted. This incision was widened to roughly 5 to 6 cm. Further purulence was drained. The edges of the incision were removed sharply with Metzenbaum scissors as it was necrotic. All of the necrotic tissue was carefully removed sharply until it bled. Care was taken to ensure that we did not accidentally cut into the urethra. I used a curette to scrape away additional necrotic tissue. The wound was copiously irrigated with normal saline. Hemostasis was achieved with electrocautery and pressure. The remainder of the scrotum was palpated and there were no other areas of fluctuance or crepitus. There was a significant amount of soft tissue edema. The wound was packed with 2 inch Kerlix. This was covered with an ABD. This marked the end of the case. All counts correct at the end the case. I was present scrubbed and actively participated for the entirety of the procedure. Maribell Bond was present to assist with drainage and retraction. I attest to the content of the Intraoperative Record and any orders documented therein. Any exceptions are noted below.
--- NOTE | 2023-08-24 18:20 | Anesthesiology Progress Note ---
Date of Service August 24, 2023 Anesthesia Post Procedure Vital Signs Vital Signs: Temp Pulse Pulse Resp BP BP Pulse Ox 08/24/23 18:17 36.9 C 08/24/23 18:10 94 H 18 137/83 96 08/24/23 18:00 94 H 23 144/87 H 97 08/24/23 17:50 98 H 19 138/98 94 08/24/23 17:40 101 H 19 137/92 95 08/24/23 17:34 36.5 C 99 H 27 H 157/95 H 90 08/24/23 15:20 37.4 C 102 H 22 129/75 98 08/24/23 14:58 105 H 22 114/74 99 08/24/23 14:17 107 H 08/24/23 14:16 94 H 20 110/77 96 08/24/23 14:16 89 L 08/24/23 14:15 95 H 23 123/79 89 L 08/24/23 14:12 64 L 08/24/23 11:18 37.0 C 110 H 20 145/80 H 94 O2 Del Method O2 Flow Rate 08/24/23 18:17 08/24/23 18:10 Oxymask 4 08/24/23 18:00 Oxymask 6 08/24/23 17:50 Oxymask 12 08/24/23 17:40 Oxymask 12 08/24/23 17:34 Nasal Cannula 6 08/24/23 15:20 Room Air 08/24/23 14:58 Oxymask 6 08/24/23 14:17 08/24/23 14:16 6 08/24/23 14:16 Oxymask 6 08/24/23 14:15 Oxymask 6 08/24/23 14:12 Oxymask 0 08/24/23 11:18 Room Air Transfer of Care Handoff Completed per policy Notes Mental Status: alert / awake / arousable Patient Amnestic to Procedure: Yes Nausea / Vomiting: adequately controlled Pain: adequately controlled Airway Patency, RR, SpO2: stable & adequate (on supplemental O2) BP & HR: stable & adequate Hydration State: stable & adequate Anesthetic Complications: no major complications apparent and Pt Satisfied with anesthetic care
[2023-08-24] MEDS: CLINDAMYCIN/D5W 900 MG/50 ML BAG IV SCH (19:36)
[2023-08-24] MEDS: LINEZOLID 600 MG/300 ML BAG IV SCH (19:37)
[2023-08-24] MEDS ORDERED: MoRPHine SULFATE 2 MG/ML CARP IV PRN (21:35)
[2023-08-24] MEDS: LACTATED RINGER'S 1,000 ML IV SCH (21:50)
[2023-08-25] MEDS: PIPERACILLIN/TAZOBACTAM 4.5 GM in DEXTROSE 5% MINI-B 100 ML IV SCH ×3 (00:24→16:42)
[2023-08-25] MEDS: CLINDAMYCIN/D5W 900 MG/50 ML BAG IV SCH ×3 (04:05→20:42)
[2023-08-25] MEDS: LACTATED RINGER'S 1,000 ML IV SCH (05:12)
[2023-08-25 06:54] LABS: Basophils # (auto) 0.02 K/uL (0.00-0.20); Basophils % (auto) 0.2 %; Hematocrit (blood only) 43.7 % (42.0-52.0); Hemoglobin 13.6 g/dl (14.0-18.0); Immature Granulocytes # (auto) 0.23 K/uL (0.01-0.20); Immature Granulocytes % (auto) 2.3 %; Lymphocytes # (auto) 0.93 K/uL (1.20-3.40); Lymphocytes % (auto) 9.2 %; Mean Corpuscular Hemoglobin 29.5 pg (25.0-34.0); Mean Corpuscular Hgb Conc 31.1 g/dL (32.0-36.0); Mean Corpuscular Volume 94.8 fL (80.0-100.0); Mean Platelet Volume 9.1 fL (9.4-12.4); Monocytes % (auto) 7.9 %; Neutrophils # (auto) 8.18 K/uL (1.40-6.50); Neutrophils % (auto) 80.4 %; Platelet Count 263 K/uL (130-400); RDW Standard Deviation 48.7 fL (36.4-46.3); Red Blood Count 4.61 M/uL (4.70-6.10); White Blood Count 10.16 K/ul (4.8-10.8)
[2023-08-25 07:14] LABS: BUN Creatinine Ratio 21.3 (10-20); Calcium 8.5 mg/dl (8.6-10.3); Creatinine Clr Calc Pharmacy 383.4 ml/min; Est GFR (African American) 149.2 ml/min; Est GFR (Non-African American) 128.7 ml/min; Potassium 4.2 mmol/L (3.5-5.1)
[2023-08-25] MEDS: MoRPHine SULFATE 4 MG/ML 1 ML CARP\\VIAL IV PRN ×2 (07:15→22:40)
[2023-08-25] MEDS: LINEZOLID 600 MG/300 ML BAG IV SCH ×2 (07:41→20:42)
--- NOTE | 2023-08-25 07:47 | Urology Progress Note ---
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 Wound healthy appearing. No indication for takeback to the OR at this time Recommend once daily changes, wet-to-dry Recommend wound consult Continue broad-spectrum antibiotics Follow-up cultures Trend labs Had discussion with patient that healing process is typically very painful with dressing changes. Discussed that this will likely take 1 to 2 months to heal. Recommended weight loss and tighter glucose control in future to prevent this from reoccurring again Urology to follow Admission and Anticipated Discharge Date Admission Date: August 24, 2023 Subjective No acute issues overnight. Taken to the OR emergently last night for an incision and drainage of Leanne's gangrene. Pain has been well-controlled. Afebrile overnight. Still mildly tachycardic but vitals otherwise stable. White blood cell count down trended from 14.3-10.1. Creatinine stable at 0.47. Cultures pending from OR. Review of Systems Review of Systems: 14 point review of systems negative outs gael of what is listed above in HPI Physical Exam Physical Exam: General: Alert and oriented, no acute distress HEENT: Normocephalic, mucous membranes moist Pulmonary: Nonlabored respirations Abdomen: Nondistended : Significant scrotal and penile edema. Perez catheter in place draining clear yellow urine. No crepitus or pockets of fluctuance. Inferior scrotal incision packing removed. Tissue healthy appearing with no worsening of necrosis. Repacked. Extremities: Moves all 4 spontaneously Neuro: No gross deficits Skin: Warm, dry, no rashes noted Results & Data Vital Signs (Past 12 Hours) Vital Signs Temp Pulse Pulse Resp BP Pulse Ox O2 Del Method 08/25/23 06:50 101 H 08/25/23 04:11 Oxymask 08/25/23 04:00 36.8 C 93 H 20 147/83 H 100 Oxymask 08/24/23 23:58 36.8 C 83 20 134/82 96 Oxymask 08/24/23 23:00 82 08/24/23 19:45 Oxymask O2 Flow Rate 08/25/23 06:50 08/25/23 04:11 15 08/25/23 04:00 15 08/24/23 23:58 5 08/24/23 23:00 08/24/23 19:45 4 PG Care Time/CCT Total # of Minutes Spent Total Time Spent with Patient: Total time spent is greater than 50% in coordination of care (as documented) at patient's floor/unit and/or counseling patient: Coding Level of Care Code 75663 SUB INP/OBS CARE 2/35MIN 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
[2023-08-25 12:08] LABS: Estimated Average Glucose 123 mg/dl; Hemoglobin A1C 5.9 % (4.5-5.6)
[2023-08-25] MEDS: ACETAMINOPHEN 325 MG TAB PO PRN ×2 (12:29→20:41)
--- NOTE | 2023-08-25 13:49 | Hospitalist Progress Note ---
Date of Service August 25, 2023 Assessment & Plan (1) Leanne's gangrene: Plan: Patient had incision and drainage of the Leanne's gangrene 08/24 Continue antibiotics broad-spectrum including linezolid, Zosyn, clindamycin Awaiting wound cultures and blood culture results. White count improving from 14,000-10,000 Patient is not a diabetic. A1c 5.9. (2) Sepsis: Plan: Improving Lactic acidosis resolved Leukocytosis resolved Source (scrotal abscess) has been incised and drained Continue broad-spectrum antibiotics Awaiting wound cultures and blood cultures (3) Tinea cruris: Plan: Miconazole powder in groin BID (4) Hypoxia: Plan: Patient has no known diagnosis of sleep apnea However given his body habitus, I will be surprised if he has undiagnosed sleep apnea Ordered CPAP (5) Psoriasis: Plan: Reportedly refused biologics in the past and not very compliant with steroid creams Recommend follow up with dermatology on discharge as extensive involvement on back, chest, abdomen and all 4 extremities (6) Morbid obesity with BMI of 60.0-69.9, adult: Plan VTE Prophylaxis - start Lovenx 40mg SQ BID when ok from surgical perspective Diet - NPO Disposition - admit to med/tele Admission and Anticipated Discharge Date Admission Date: August 24, 2023 Subjective Patient is feeling much better today. Not complaining of much pain at this time. He is still quite groggy from his surgery and anesthesia yesterday. Review of Systems Review of Systems: All systems reviewed & are unremarkable except as noted in Subjective Physical Exam Physical Exam: General: Awake, conversant, morbidly obese Heart: S1, S2/regular rate and rhythm, no murmur rubs or gallops Lungs: Clear to auscultation bilaterally. Normal effort Abdomen: Soft/nontender/nondistended. No hepatosplenomegaly Extremities: No clubbing/cyanosis. No edema. Significant scrotal and penile edema noted. Perez catheter in place. Behavior: Appropriate, cooperative Results & Data Results & Data Vital Signs (Past 12 Hours) Vital Signs Temp Pulse Pulse Resp BP Pulse Ox O2 Del Method 08/25/23 11:33 36.7 C 82 20 146/79 H 98 Oxymask 08/25/23 07:50 Oxymask 08/25/23 07:47 36.7 C 85 20 120/75 99 Oxymask 08/25/23 06:50 101 H 08/25/23 04:11 Oxymask 08/25/23 04:00 36.8 C 93 H 20 147/83 H 100 Oxymask O2 Flow Rate 08/25/23 11:33 15 08/25/23 07:50 15 08/25/23 07:47 15 08/25/23 06:50 08/25/23 04:11 15 08/25/23 04:00 15 Laboratory Results Abnormal lab results 08/25/23 Range/Units 05:53 RBC 4.61 L (4.70-6.10) M/uL Hgb 13.6 L (14.0-18.0) g/dl MCHC 31.1 L (32.0-36.0) g/dL RDW Std Deviation 48.7 H (36.4-46.3) fL MPV 9.1 L (9.4-12.4) fL Neut # (Auto) 8.18 H (1.40-6.50) K/uL Lymph # (Auto) 0.93 L (1.20-3.40) K/uL [place] # (Auto) 0.80 H (0.11-0.59) K/uL Immature Gran # (Auto) 0.23 H (0.01-0.20) K/uL Carbon Dioxide 35 H (21-32) mmol/L Creatinine 0.47 L (0.6-1.4) mg/dl BUN/Creatinine Ratio 21.3 H (10-20) Glucose 147 H (70-99(Fasting)) mg/dl Hemoglobin A1c 5.9 H (4.5-5.6) % Calcium 8.5 L (8.6-10.3) mg/dl Diagnostic Findings Abdomen/Pelvis CT 08/24/23 11:43 CT OF THE ABDOMEN AND PELVIS WITH CONTRAST CLINICAL HISTORY: scrotum/perineal redness/edema, eval for fourniers COMPARISON STUDY: None. TECHNIQUE: Following IV administration of 118 mL of Optiray, axial images of the abdomen and pelvis were obtained from the lung bases to the proximal femurs. Images were reviewed in the axial, sagittal, and coronal planes. IV contrast was administered without complication. Automated exposure control was utilized for the study. A dose lowering technique was utilized adhering to the principles of ALARA. CT DOSE: 2615.01 mGy.cm FINDINGS: No pneumatosis, free air or portal venous gas is present. There is hepatic steatosis. No biliary or pancreatic ductal dilatation is present. Spleen, adrenal glands, kidneys and pancreas are unremarkable. The appendix is surgically absent. There is no evidence for a bowel obstruction. There are multiple mildly enlarged para-aortic, iliac and inguinal lymph nodes. Index right inguinal lymph node on image 438 of 501 measures 2.7 x 1.8 cm. Index right external iliac lymph node on image urinating measures 3.3 x 2.2 cm. Note is made of marked scrotal edema. There is a gas and fluid containing posterior scrotal fluid collection with air-fluid level. This collection measures 5.8 x 4 cm. Several additional suspected small rim-enhancing fluid collections within the scrotum measure up to 1.7 cm. These favor multifocal abscesses. Possible skin ulceration associated with the largest abscess. There is no gas within the perineum. No additional foci of soft tissue gas are present. Cellulitis extends to the base of the penis/scrotum and the perineum. Severe right hip osteoarthritis is incidentally noted. IMPRESSION: 1. Marked scrotal edema. Stranding which extends to the base of the scrotum/penis and perineum consistent with cellulitis. The findings are consistent with an infectious process. Associated gas and fluid containing 5 x 4 cm posterior scrotal fluid consistent with an abscess. Suspected additional smaller scrotal abscesses as described above. In the absence of an open wound, the findings are consistent with a gas-forming infectious process with scrotal abscess formation. The gas is localized to the scrotum. No additional sites of soft tissue gas. 2. Multiple mildly enlarged para-aortic, bilateral iliac and inguinal lymph nodes. These are nonspecific and may be reactive. However, a follow-up CT of the abdomen and pelvis in 6 months to ensure stability/resolution is recommended. ACT 112: Negative or not required by law. Electronically signed by: Walter Mayen M.D. 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
[2023-08-26] MEDS: PIPERACILLIN/TAZOBACTAM 4.5 GM in DEXTROSE 5% MINI-B 100 ML IV SCH ×3 (00:16→15:47)
[2023-08-26] MEDS ORDERED: KETOROLAC 30 MG/ML VIAL IV ONE ×2 (00:51→09:36)
[2023-08-26] MEDS: CLINDAMYCIN/D5W 900 MG/50 ML BAG IV SCH ×2 (03:42→13:53)
[2023-08-26] MEDS ORDERED: ACETAMINOPHEN 325 MG TAB PO PRN (08:53)
[2023-08-26 08:55] LABS: Basophils # (auto) 0.05 K/uL (0.00-0.20); Basophils % (auto) 0.4 %; Eosinophils # (auto) 0.02 K/uL (0.00-0.50); Eosinophils % (auto) 0.2 %; Hematocrit (blood only) 41.7 % (42.0-52.0); Hemoglobin 12.7 g/dl (14.0-18.0); Immature Granulocytes # (auto) 0.42 K/uL (0.01-0.20); Immature Granulocytes % (auto) 3.3 %; Lymphocytes # (auto) 1.38 K/uL (1.20-3.40); Lymphocytes % (auto) 10.9 %; Mean Corpuscular Hemoglobin 29.5 pg (25.0-34.0); Mean Corpuscular Hgb Conc 30.5 g/dL (32.0-36.0); Mean Corpuscular Volume 96.8 fL (80.0-100.0); Monocytes # (auto) 1.11 K/uL (0.11-0.59); Monocytes % (auto) 8.8 %; Neutrophils # (auto) 9.67 K/uL (1.40-6.50); Neutrophils % (auto) 76.4 %; Platelet Count 235 K/uL (130-400); RDW Coefficient of Variation 13.4 % (11.5-14.5); RDW Standard Deviation 48.4 fL (36.4-46.3); Red Blood Count 4.31 M/uL (4.70-6.10); White Blood Count 12.65 K/ul (4.8-10.8)
[2023-08-26 09:09] LABS: BUN Creatinine Ratio 28.6 (10-20); Calcium 8.6 mg/dl (8.6-10.3); Creatinine Clr Calc Pharmacy 321.7 ml/min; Est GFR (African American) 138.8 ml/min; Est GFR (Non-African American) 119.8 ml/min; Potassium 4.6 mmol/L (3.5-5.1)
[2023-08-26] MEDS: LINEZOLID 600 MG/300 ML BAG IV SCH ×2 (09:55→21:03)
[2023-08-26 11:21] LABS: Appearance Urine Cloudy (Clear); Bacteria Urine Automated Negative (Negative); Bilirubin Urine Negative (Negative); Blood Urine 2+ (Negative); Color Urine Dark Yellow; Glucose Urine UA Negative (Negative); Ketones Urine Negative (Negative); Leukocyte Esterase Urine Negative (Negative); Nitrite Urine Negative (Negative); Protein Urine 1+ (Negative); RBC Urine Automated >30 /hpf (0-4); Specific Gravity Urine 1.022 (1.000-1.030); Urobilinogen Urine Negative (Negative); pH Urine 6.5 (4.5-7.5)
[2023-08-26] MEDS ORDERED: SUMAtriptan succinate 50 MG TAB PO ONE (11:46)
--- NOTE | 2023-08-26 12:06 | Urology Progress Note ---
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 Labs reviewed-WBC 12.65 (10.16 yesterday), hemoglobin 12.7, creatinine 0.56. Blood cultures preliminary no growth Scrotal abscess fluid culture mell/aero prelim pin point growth, reincubating and gram stain gram-positive cocci, gram-negative bacilli, few WBCs Packing exchanged by urology today. Wound healthy appearing. No indication for further surgical intervention at this time. Recommend once daily packing exchanges, wet-to-dry. Recommend wound consult and will need wound care center follow-up on discharge. Continue broad-spectrum antibiotics. Follow-up cultures. Trend labs. Continue supportive care and pain management as needed. Okay for chemical DVT prophylaxis from a standpoint. Again reiterated that that healing process is can be very painful with dressing changes and that it will likely take 1 to 2 months to heal. Will arrange outpatient follow-up with our service. Urology will follow. Admission and Anticipated Discharge Date Admission Date: August 24, 2023 Subjective Patient examined at bedside today with Dr. Walker. Awake, resting in bed on arrival. No acute distress. Reports a headache this morning. Perez draining yellow urine. Scrotal packing in place. Denies f/c/n/v. Review of Systems Constitutional: as per Subjective / HPI Genitourinary: + as per Subjective / HPI Physical Exam Constitutional: + obese; no acute distress Respiratory: no respiratory distress and no labored breathing On O2 via Oxymask Neurologic: awake Psychiatric: Orientation: alert and cooperative Genitourinary: Significant scrotal and penile edema. Perez catheter in place draining clear yellow urine. No crepitus or pockets of fluctuance. Inferior scrotal incision packing removed. Tissue healthy appearing with no worsening of necrosis. Repacked with Betadine gauze and ABD dressing. Results & Data Vital Signs (Past 12 Hours) Vital Signs Temp Pulse Pulse Pulse Resp BP BP 08/26/23 11:51 147/83 H 08/26/23 11:12 36.4 C L 80 18 184/78 H 08/26/23 07:54 36.5 C 95 H 16 157/90 H 08/26/23 07:28 93 H 08/26/23 03:49 36.6 C 79 18 143/77 H Pulse Ox O2 Del Method O2 Flow Rate 08/26/23 11:51 08/26/23 11:12 98 Oxymask 15 08/26/23 07:54 98 Oxymask 15 08/26/23 07:28 08/26/23 03:49 98 Oxymask 15 PG Care Time/CCT Total # of Minutes Spent Total Time Spent with Patient: Total time spent is greater than 50% in coordination of care (as documented) at patient's floor/unit and/or counseling patient: Coding Level of Care Code 72714 SUB INP/OBS CARE 2/35MIN 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
--- NOTE | 2023-08-26 12:52 | Hospitalist Progress Note ---
Date of Service August 26, 2023 Assessment & Plan (1) Leanne's gangrene: Plan: Patient had incision and drainage of the Leanne's gangrene 08/24 On broad-spectrum including linezolid, Zosyn, clindamycin Awaiting wound cultures and blood culture results. Noted that the white count is mildly elevated today at 12 from 10,000 yesterday. Will discontinue clindamycin but will continue Zosyn and linezolid while awaiting culture results. Patient is not a diabetic. A1c 5.9. Urology is okay with treating the pain with Toradol. IV Toradol started. Discontinued morphine due to concerns of hypercarbic respiratory failure and CO2 narcosis as the patient is refusing to use a CPAP.. Morphine can be resumed only if the patient agrees to use the CPAP. Ordered an ABG to document his CO2 and pH. (2) Sepsis: Plan: Improving Lactic acidosis resolved Leukocytosis improved but white count is 12 today, up from 10 yesterday. Source (scrotal abscess) has been incised and drained Continue broad-spectrum antibiotics. Discontinued clindamycin Awaiting wound cultures and blood cultures (3) Tinea cruris: Plan: Miconazole powder in groin BID (4) Hypoxia: Plan: Patient has no known diagnosis of sleep apnea However given his body habitus, I will not be surprised if he has undiagnosed sleep apnea Ordered CPAP but patient is refusing. Ordered ABG Serious concern for developing CO2 narcosis and acute hypercarbic respiratory failure with the use of narcotics Discontinued morphine as the patient stated that he will tolerate the pain but cannot tolerate the mask If he requires narcotics overnight, it will need to be ensured that he uses a CPAP (5) Psoriasis: Plan: Reportedly refused biologics in the past and not very compliant with steroid creams Recommend follow up with dermatology on discharge as extensive involvement on back, chest, abdomen and all 4 extremities (6) Morbid obesity with BMI of 60.0-69.9, adult: Plan: Likely has obstructive sleep apnea Refusing CPAP Please see problem #4 hypoxia Plan VTE Prophylaxis - start Lovenx 40mg SQ BID since surgery cleared Full code Admission and Anticipated Discharge Date Admission Date: August 24, 2023 Subjective Patient refused to use CPAP at night. This morning he is complaining of a headache. Tylenol did not help. Toradol was ordered by urology. I had a conversation with the patient and explained to him that he likely has obstructive sleep apnea. I explained to him that I am nervous about giving him large doses of narcotics for pain if he refuses to use a CPAP. I am concerned about CO2 narcosis and hypercarbic respiratory failure. He agreed to stopping narcotics but would never use a CPAP. Review of Systems Review of Systems: All systems reviewed & are unremarkable except as noted in Subjective Physical Exam Physical Exam: General: Awake, conversant, morbidly obese Heart: S1, S2/regular rate and rhythm, no murmur rubs or gallops Lungs: Clear to auscultation bilaterally. Normal effort Abdomen: Soft/nontender/nondistended. No hepatosplenomegaly Extremities: No clubbing/cyanosis. No edema. Significant scrotal and penile edema noted slightly less swollen today than yesterday. Perez catheter in place. Behavior: Appropriate, cooperative Results & Data Results & Data Vital Signs (Past 12 Hours) Vital Signs Temp Pulse Pulse Pulse Resp BP BP 08/26/23 11:51 147/83 H 08/26/23 11:12 36.4 C L 80 18 184/78 H 08/26/23 08:00 08/26/23 07:54 36.5 C 95 H 16 157/90 H 08/26/23 07:28 93 H 08/26/23 03:49 36.6 C 79 18 143/77 H Pulse Ox O2 Del Method O2 Flow Rate 08/26/23 11:51 08/26/23 11:12 98 Oxymask 15 08/26/23 08:00 Oxymask 15 08/26/23 07:54 98 Oxymask 15 08/26/23 07:28 08/26/23 03:49 98 Oxymask 15 Laboratory Results Abnormal lab results 08/26/23 08/26/23 Range/Units 08:34 11:09 WBC 12.65 H (4.8-10.8) K/ul RBC 4.31 L (4.70-6.10) M/uL Hgb 12.7 L (14.0-18.0) g/dl Hct 41.7 L (42.0-52.0) % MCHC 30.5 L (32.0-36.0) g/dL RDW Std Deviation 48.4 H (36.4-46.3) fL MPV 9.0 L (9.4-12.4) fL Neut # (Auto) 9.67 H (1.40-6.50) K/uL [place] # (Auto) 1.11 H (0.11-0.59) K/uL Immature Gran # (Auto) 0.42 H (0.01-0.20) K/uL Chloride 97 L (98-107) mmol/L Carbon Dioxide 36 H (21-32) mmol/L Creatinine 0.56 L (0.6-1.4) mg/dl BUN/Creatinine Ratio 28.6 H (10-20) Glucose 185 H (70-99(Fasting)) mg/dl Urine Appearance Cloudy A (Clear) Urine Protein 1+ H (Negative) Urine Blood 2+ H (Negative) Urine RBC (Auto) >30 H (0-4) /hpf U Epithel Cells (Auto) 10-20 H (0-5) /lpf PG Care Time/CCT Total # of Minutes Spent Total Time Spent with Patient: Total time spent is greater than 50% in coordination of care (as documented) at patient's floor/unit and/or counseling patient: Coding Level of Care Code 08551 SUB INP/OBS CARE 2/35MIN 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
[2023-08-26 13:15] LABS: Base Excess ABG 10.4 mEq/L (-9-1.8); HCO3 ABG 42 mmol/L (19-24); Oxygen Saturation ABG 97.4 % (90-95); PCO2 ABG 98 mmHg (35-46); PO2 ABG 159 mmHg (80-95); pH ABG 7.24 (7.35-7.45)
[2023-08-26 13:18] LABS: Allen Test Pos (Pos)
[2023-08-26] MEDS: KETOROLAC 30 MG/ML VIAL IV PRN ×2 (13:51→22:46)
[2023-08-26] MEDS: ENOXAPARIN INJ 40 MG/0.4 ML SYR SQ SCH (13:55)
[2023-08-26] MEDS ORDERED: hydrALAZINE HCL 20 MG/ML VIAL IV ONE (20:31)
[2023-08-27] MEDS: PIPERACILLIN/TAZOBACTAM 4.5 GM in DEXTROSE 5% MINI-B 100 ML IV SCH ×3 (00:13→16:00)
[2023-08-27] MEDS: ENOXAPARIN INJ 40 MG/0.4 ML SYR SQ SCH ×2 (00:17→14:22)
[2023-08-27] MEDS ORDERED: BUTALBITAL/ACETAMIN/CAFFEINE TAB PO STA (03:41)
[2023-08-27] MEDS: KETOROLAC 30 MG/ML VIAL IV PRN ×3 (05:56→20:38)
[2023-08-27 06:38] LABS: Hematocrit (blood only) 37.8 % (42.0-52.0); Hemoglobin 11.5 g/dl (14.0-18.0); Mean Corpuscular Hemoglobin 29.3 pg (25.0-34.0); Mean Corpuscular Hgb Conc 30.4 g/dL (32.0-36.0); Mean Corpuscular Volume 96.2 fL (80.0-100.0); Mean Platelet Volume 9.2 fL (9.4-12.4); Platelet Count 230 K/uL (130-400); RDW Coefficient of Variation 13.4 % (11.5-14.5); RDW Standard Deviation 47.9 fL (36.4-46.3); Red Blood Count 3.93 M/uL (4.70-6.10); White Blood Count 10.39 K/ul (4.8-10.8)
[2023-08-27 06:46] LABS: Anion Gap 3 (3-11); BUN Creatinine Ratio 41.5 (10-20); Blood Urea Nitrogen 17 mg/dl (6-23); Calcium 8.5 mg/dl (8.6-10.3); Carbon Dioxide 36 mmol/L (21-32); Chloride 98 mmol/L (98-107); Creatinine Clr Calc Pharmacy 439.5 ml/min; Est GFR (African American) > 150.0 ml/min; Est GFR (Non-African American) 136.1 ml/min; Glucose 114 mg/dl (70-99(Fasting)); Potassium 4.7 mmol/L (3.5-5.1); Sodium 137 mmol/L (136-145)
[2023-08-27] MEDS: ACETAMINOPHEN 325 MG TAB PO PRN (09:27)
[2023-08-27] MEDS: LINEZOLID 600 MG/300 ML BAG IV SCH ×2 (09:28→20:39)
--- NOTE | 2023-08-27 12:40 | Hospitalist Progress Note ---
Date of Service August 27, 2023 Assessment & Plan (1) Leanne's gangrene: Plan: Patient had incision and drainage of the Leanne's gangrene 08/24 On broad-spectrum including linezolid, Zosyn Awaiting wound cultures and blood culture results. Leukocytosis resolved Patient is not a diabetic. A1c 5.9. Urology is okay with treating the pain with Toradol. IV Toradol started. Discontinued morphine due to concerns of hypercarbic respiratory failure and CO2 narcosis as the patient is refusing to use a CPAP.. Morphine can be resumed only if the patient agrees to use the CPAP. (2) Sepsis: Plan: Improving Lactic acidosis resolved Leukocytosis resolved Source (scrotal abscess) has been incised and drained Continue broad-spectrum antibiotics. Discontinued clindamycin Awaiting wound cultures and blood cultures (3) Acute hypercapnic respiratory failure: Plan: Patient likely has undiagnosed sleep apnea, given body habitus and snoring He has been waking up very groggy ABG showed pH of 7.24 with CO2 of 98. Patient seems to be compensating well with high bicarb of 42. Refusing BiPAP Addressed CODE STATUS again today. He wishes to be full code. Spoke to respiratory therapist. We have the BiPAP machine at the bedside in case he goes into a deep sleep so we can start him on it immediately. Avoid narcotic or any sedatives (4) Tinea cruris: Plan: Miconazole powder in groin BID (5) Psoriasis: Plan: Reportedly refused biologics in the past and not very compliant with steroid creams Recommend follow up with dermatology on discharge as extensive involvement on back, chest, abdomen and all 4 extremities (6) Morbid obesity with BMI of 60.0-69.9, adult: Plan: Likely has obstructive sleep apnea Refusing CPAP Please see problem #4 hypoxia (7) Benign essential hypertension: Plan: Patient takes triamterene/HCTZ combo May resume today as blood pressure is creeping up Plan VTE Prophylaxis - Lovenx 40mg SQ BID Full code, confirmed again 08/27 Admission and Anticipated Discharge Date Admission Date: August 24, 2023 Subjective Patient continues to refuse BiPAP. I personally spoke to his on the phone and explained the situation. Concerned that ABG showed respiratory acidosis with high CO2. Off of all narcotics as any sedative will tip him over into deep sleep, acute hypercarbic respiratory failure. Patient today is able to wake up and talk to me. He is able to hold a conversation breath sounds groggy. Per nurse, he has been laying in bed all day. Review of Systems Review of Systems: All systems reviewed & are unremarkable except as noted in Subjective Physical Exam Physical Exam: General: Awake, conversant, morbidly obese Heart: S1, S2/regular rate and rhythm, no murmur rubs or gallops Lungs: Clear to auscultation bilaterally. Normal effort Abdomen: Soft/nontender/nondistended. No hepatosplenomegaly Extremities: No clubbing/cyanosis. No edema. Decreasing scrotal and penile edema noted. Perez catheter in place. Behavior: Appropriate, cooperative Results & Data Results & Data Vital Signs (Past 12 Hours) Vital Signs Temp Pulse Pulse Resp BP Pulse Ox O2 Del Method 08/27/23 11:31 36.5 C 76 20 153/81 H 94 Oxymask 08/27/23 08:24 81 08/27/23 08:12 36.5 C 80 19 164/89 H 92 Oxymask 08/27/23 07:43 Oxymask 08/27/23 04:18 36.7 C 80 20 134/87 94 Oxymask 08/27/23 01:16 36.5 C 84 22 155/78 H 95 Oxymask O2 Flow Rate 08/27/23 11:31 3 08/27/23 08:24 08/27/23 08:12 3 08/27/23 07:43 3 08/27/23 04:18 08/27/23 01:16 3 Laboratory Results Abnormal lab results 08/26/23 08/27/23 Range/Units 13:01 05:57 RBC 3.93 L (4.70-6.10) M/uL Hgb 11.5 L (14.0-18.0) g/dl Hct 37.8 L (42.0-52.0) % MCHC 30.4 L (32.0-36.0) g/dL RDW Std Deviation 47.9 H (36.4-46.3) fL MPV 9.2 L (9.4-12.4) fL ABG pH 7.24 L (7.35-7.45) ABG pCO2 98 H (35-46) mmHg ABG pO2 159 H (80-95) mmHg ABG HCO3 42 H (19-24) mmol/L ABG O2 Saturation 97.4 H (90-95) % ABG Base Excess 10.4 H (-9-1.8) mEq/L Carbon Dioxide 36 H (21-32) mmol/L Creatinine 0.41 L (0.6-1.4) mg/dl BUN/Creatinine Ratio 41.5 H (10-20) Glucose 114 H (70-99(Fasting)) mg/dl Calcium 8.5 L (8.6-10.3) mg/dl PG Care Time/CCT Total # of Minutes Spent Total Time Spent with Patient: Total time spent is greater than 50% in coordination of care (as documented) at patient's floor/unit and/or counseling patient: Coding Level of Care Code 99937 SUB INP/OBS CARE 2/35MIN 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
[2023-08-27] MEDS: TRIAMTERENE/HCTZ 37.5/25MG CAP PO SCH (14:22)
[2023-08-28] MEDS: ENOXAPARIN INJ 40 MG/0.4 ML SYR SQ SCH ×2 (00:56→13:04)
[2023-08-28] MEDS: PIPERACILLIN/TAZOBACTAM 4.5 GM in DEXTROSE 5% MINI-B 100 ML IV SCH ×3 (00:58→17:51)
[2023-08-28 07:26] LABS: Hematocrit (blood only) 38.8 % (42.0-52.0); Mean Corpuscular Hgb Conc 30.9 g/dL (32.0-36.0); Mean Corpuscular Volume 93.7 fL (80.0-100.0); Mean Platelet Volume 8.7 fL (9.4-12.4); Platelet Count 233 K/uL (130-400); RDW Coefficient of Variation 13.3 % (11.5-14.5); RDW Standard Deviation 45.5 fL (36.4-46.3); Red Blood Count 4.14 M/uL (4.70-6.10); White Blood Count 8.59 K/ul (4.8-10.8)
[2023-08-28 07:56] LABS: Anion Gap 4 (3-11); BUN Creatinine Ratio 38.5 (10-20); Blood Urea Nitrogen 15 mg/dl (6-23); Carbon Dioxide 39 mmol/L (21-32); Chloride 98 mmol/L (98-107); Est GFR (African American) > 150.0 ml/min; Glucose 111 mg/dl (70-99(Fasting)); Potassium 3.9 mmol/L (3.5-5.1); Sodium 141 mmol/L (136-145)
[2023-08-28] MEDS: LINEZOLID 600 MG/300 ML BAG IV SCH ×2 (07:59→22:16)
[2023-08-28 08:19] LABS: Calcium 8.7 mg/dl (8.6-10.3)
[2023-08-28] MEDS: TRIAMTERENE/HCTZ 37.5/25MG CAP PO SCH (11:04)
--- NOTE | 2023-08-28 11:59 | Hospitalist Progress Note ---
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 Leukocytosis resolved Patient is not a diabetic. A1c 5.9. Local swelling improved Urology is okay with treating the pain with Toradol. IV Toradol started. Discontinued morphine due to concerns of hypercarbic respiratory failure and CO2 narcosis as the patient is refusing to use a CPAP.. Morphine can be resumed only if the patient agrees to use the CPAP. PPI started for GI prophylaxis while on Toradol (2) Sepsis: Plan: Improving Lactic acidosis resolved Leukocytosis resolved Source (scrotal abscess) has been incised and drained Continue broad-spectrum antibiotics. Blood cultures negative Wound culture growing Corynebacterium, Peptostreptococcus and gram-negative boston, awaiting sensitivities (3) Acute hypercapnic respiratory failure: Plan: Patient likely has undiagnosed sleep apnea, given body habitus and snoring He has been waking up very groggy ABG showed pH of 7.24 with CO2 of 98 on 08/26. Patient seems to be compensating well with high bicarb of 42. Refusing BiPAP Addressed CODE STATUS again 09/13. He confirmed full code. Spoke to respiratory therapist. We have the BiPAP machine at the bedside in case he goes into a deep sleep so we can start him on it immediately. Avoid narcotic or any sedatives (4) Tinea cruris: Plan: Miconazole powder in groin BID (5) Psoriasis: Plan: Reportedly refused biologics in the past and not very compliant with steroid creams Recommend follow up with dermatology on discharge as extensive involvement on b ack, chest, abdomen and all 4 extremities (6) Morbid obesity with BMI of 60.0-69.9, adult: Plan: Likely has obstructive sleep apnea Refusing CPAP Please see problem #4 hypoxia (7) Benign essential hypertension: Plan: Patient takes triamterene/HCTZ combo Resumed Plan VTE Prophylaxis - Lovenx 40mg SQ BID Full code, confirmed again 08/27 PT/OT consulted, recommending rehab. Awaiting culture sensitivities to narrow down antibiotic coverage Likely discharge early next week Admission and Anticipated Discharge Date Admission Date: August 24, 2023 Subjective Patient says that his headache is better. He wants to know when he can go home. at the bedside. Review of Systems Review of Systems: All systems reviewed & are unremarkable except as noted in Subjective Physical Exam Physical Exam: General: Awake, conversant, morbidly obese Heart: S1, S2/regular rate and rhythm, no murmur rubs or gallops Lungs: Clear to auscultation bilaterally. Normal effort Abdomen: Soft/nontender/nondistended. No hepatosplenomegaly Extremities: No clubbing/cyanosis. No edema. Decreasing scrotal and penile edema noted. Perez catheter in place. Behavior: Appropriate, cooperative Results & Data Results & Data Vital Signs (Past 12 Hours) Vital Signs Temp Pulse Pulse Resp BP Pulse Ox O2 Del Method 08/28/23 08:20 36.4 C L 87 16 164/102 H 97 Oxymask 08/28/23 08:13 79 08/28/23 08:13 Oxymask 08/28/23 04:22 36.4 C L 86 22 157/94 H 93 Oxymask 08/28/23 00:26 36.4 C L 84 20 153/88 H 95 Oxymask 08/28/23 00:18 81 O2 Flow Rate 08/28/23 08:20 3 08/28/23 08:13 08/28/23 08:13 3 08/28/23 04:22 3 08/28/23 00:26 3 08/28/23 00:18 Laboratory Results Abnormal lab results 08/28/23 Range/Units 06:43 RBC 4.14 L (4.70-6.10) M/uL Hgb 12.0 L (14.0-18.0) g/dl Hct 38.8 L (42.0-52.0) % MCHC 30.9 L (32.0-36.0) g/dL MPV 8.7 L (9.4-12.4) fL Carbon Dioxide 39 H (21-32) mmol/L Creatinine 0.39 L (0.6-1.4) mg/dl BUN/Creatinine Ratio 38.5 H (10-20) Glucose 111 H (70-99(Fasting)) mg/dl PG Care Time/CCT Total # of Minutes Spent Total Time Spent with Patient: Total time spent is greater than 50% in coordination of care (as documented) at patient's floor/unit and/or counseling patient: Coding Level of Care Code 35612 SUB INP/OBS CARE 2/35MIN 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
--- NOTE | 2023-08-28 12:38 | Urology Progress Note ---
Date of Service August 28, 2023 Assessment & Plan (1) Leanne's gangrene: Plan Postop day 4 status post incision and drainage with debridement. Patient had foreign years gangrene. Is undergoing daily wound changing. Wound with packing in place. No areas of erythema. No induration. No signs of necrotic or suspicious appearing tissue. Has been doing well. Has been tolerating IV antibiotics. Patient has had some issues with respiratory concerns. Has likely issues at baseline. Being managed by the hospitalist team. Agree with plans for supportive care. will plan to continue with wound management. Agree with plans for supportive care. No obvious need for debridement of further tissue or washout. Will plan to continue with wound care changing. Admission and Anticipated Discharge Date Admission Date: August 24, 2023 Subjective Postop from urologic surgery. Patient presented with foreign years gangrene and had undergone incision and drainage of scrotal abscess. Patient has been tolerating well, but is having some pain and discomfort. Incisions have been mild sore. Has been having dressing changes daily. Has not had severe pain or uncontrollable pain. No new nausea or vomiting. Had tolerated anesthesia without major problems Tolerated diet postoperatively. Review of Systems Review of Systems: All systems reviewed & are unremarkable except as noted in HPI & below Physical Exam Physical Exam: General: Alert in no acute distress. Morbid obesity HEENT: Normocephalic Atraumatic. Inspection normal. Cranial Nerves 2-12 Grossly intact. Normal inspection of face. Normal inspection of neck. Psychologic: Normal affect. Respiratory: Nonlabored. No use of accessory muscles. No tachypnea or dyspnea. Cardiovascular: No tachycardia Skin: [place] and Dry. No rashes or visible lesions. Extremities/Lymphatics: Moderate edema Abdomen: Mild distended. No rebound or guarding. Wound: Healing by secondary intent. Dressing changes going without major issue. Results & Data Vital Signs (Past 12 Hours) Vital Signs Temp Pulse Pulse Resp BP Pulse Ox O2 Del Method 08/28/23 08:20 36.4 C L 87 16 164/102 H 97 Oxymask 08/28/23 08:13 79 08/28/23 08:13 Oxymask 08/28/23 04:22 36.4 C L 86 22 157/94 H 93 Oxymask O2 Flow Rate 08/28/23 08:20 3 08/28/23 08:13 08/28/23 08:13 3 08/28/23 04:22 3 PG Care Time/CCT Total # of Minutes Spent Total Time Spent with Patient: Total time spent is greater than 50% in coordination of care (as documented) at patient's floor/unit and/or counseling patient: Coding Level of Care Code 06140 SUB INP/OBS CARE 3/50MIN 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
[2023-08-28] MEDS: PANTOprazole 40 MG TAB PO SCH (13:04)
[2023-08-28] MEDS: KETOROLAC 30 MG/ML VIAL IV PRN (22:22)
[2023-08-29] MEDS: PIPERACILLIN/TAZOBACTAM 4.5 GM in DEXTROSE 5% MINI-B 100 ML IV SCH ×3 (00:08→15:40)
[2023-08-29] MEDS: ENOXAPARIN INJ 40 MG/0.4 ML SYR SQ SCH ×2 (00:10→13:51)
[2023-08-29 06:48] LABS: Hematocrit (blood only) 39.5 % (42.0-52.0); Hemoglobin 12.9 g/dl (14.0-18.0); Mean Corpuscular Hemoglobin 29.7 pg (25.0-34.0); Mean Corpuscular Hgb Conc 32.7 g/dL (32.0-36.0); Mean Corpuscular Volume 90.8 fL (80.0-100.0); Mean Platelet Volume 8.7 fL (9.4-12.4); Platelet Count 234 K/uL (130-400); RDW Coefficient of Variation 13.4 % (11.5-14.5); Red Blood Count 4.35 M/uL (4.70-6.10); White Blood Count 10.12 K/ul (4.8-10.8)
[2023-08-29 07:25] LABS: BUN Creatinine Ratio 29.8 (10-20); Blood Urea Nitrogen 14 mg/dl (6-23); Calcium 8.9 mg/dl (8.6-10.3); Carbon Dioxide 36 mmol/L (21-32); Chloride 98 mmol/L (98-107); Creatinine Clr Calc Pharmacy 386.7 ml/min; Est GFR (African American) 149.2 ml/min; Est GFR (Non-African American) 128.7 ml/min; Glucose 113 mg/dl (70-99(Fasting))
[2023-08-29] MEDS: LINEZOLID 600 MG/300 ML BAG IV SCH ×2 (08:21→21:23)
[2023-08-29] MEDS: TRIAMTERENE/HCTZ 37.5/25MG CAP PO SCH (08:22)
[2023-08-29] MEDS: PANTOprazole 40 MG TAB PO SCH (08:22)
--- NOTE | 2023-08-29 08:30 | Urology Progress Note ---
Date of Service August 29, 2023 Assessment & Plan (1) Leanne's gangrene: Plan: 52-year-old male with Leanne's gangrene status post incision and drainage on 08/24/2023 Afebrile, hemodynamically stable. Labs reviewed-WBC 10.12, hemoglobin 12.7, creatinine 0.47. Blood cultures with no growth. Scrotal abscess fluid culture mell/aero prelim Corynebacterium, Peptostreptococcus anaerobius, and probable mell gram negative bacilli; gram stain gram-positive cocci, gram-negative bacilli, few WBCs. Continue once daily packing exchanges, wet-to-dry. Wound nurse consulted. Will need wound care center follow-up on discharge. Continue broad-spectrum antibiotics. Continue supportive care and pain management as needed. Continue medical management per hospital service. Can perform voiding trial now or prior to discharge. Again reiterated that the healing process will likely take 1 to 2 months to heal. Will arrange outpatient follow-up with our service. Urology will follow peripherally. Admission and Anticipated Discharge Date Admission Date: August 24, 2023 Subjective Patient examined at bedside this am, chart reviewed. Resting in bed on arrival, no acute distress. Notes some scrotal discomfort. Scrotal packing in place. Wound care daily by nursing. Perez draining pink urine. Denies f/c/n/v. Review of Systems Constitutional: as per Subjective / HPI Genitourinary: + as per Subjective / HPI Physical Exam Constitutional: + morbidly obese; no acute distress Respiratory: no respiratory distress and no labored breathing Gastrointestinal (Abdomen): Inspection/Auscultation: abdomen not distended Musculoskeletal: Head/Neck/Chest: normocephalic Psychiatric: Orientation: alert and oriented x 3 Genitourinary: Mild scrotal and penile edema. Perez draining light pink urine. No crepitus or pockets of fluctuance noted. Inferior scrotal incision with healthy appearing tissue with no worsening of necrosis. Packing in place with ABD over top. Results & Data Vital Signs (Past 12 Hours) Vital Signs Temp Pulse Pulse Resp BP Pulse Ox O2 Del Method 08/29/23 07:58 36.6 C 73 18 166/103 H 93 Room Air 08/29/23 07:00 80 08/29/23 04:00 36 C L 75 20 168/98 H 95 Oxymask 08/28/23 23:59 85 08/28/23 23:39 Oxymask 08/28/23 22:00 36.9 C 92 H 20 146/92 H 97 Oxymask O2 Flow Rate 08/29/23 07:58 08/29/23 07:00 08/29/23 04:00 08/28/23 23:59 08/28/23 23:39 3 08/28/23 22:00 3 PG Care Time/CCT Total # of Minutes Spent Total Time Spent with Patient: Total time spent is greater than 50% in coordination of care (as documented) at patient's floor/unit and/or counseling patient: Coding Level of Care Code 72809 SUB INP/OBS CARE 09/08MIN 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
[2023-08-29 08:54] LABS: Potassium 3.6 mmol/L (3.5-5.1)
--- NOTE | 2023-08-29 11:58 | Hospitalist Progress Note ---
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 Phelps catheter remains - urology states we can remove phelps any time moving forward will allow mild gross hematuria to clear then pull the phelps next 1-2 days (2) Sepsis: Plan: 2nd #1 above - resolved Blood cx's negative Remains on zosyn/linezolid but can likely d/c latter Scrotal cx results as above in #1 (3) Acute hypercapnic respiratory failure: Plan: ABG several days ago with pH of 7.24 with CO2 of 98 on 08/26 Refused BiPAP then and also on subsequent days Has never had formal sleep study All narcotics have been d/c due to concern for severe EMELY/OHS Avoid all sedatives Will repeat a VBG in am - suspect pCO2 is improved since it has been several days since his last narcotic I had lengthy discussion with him today regarding concerns about untreated, severe EMELY and its long-term impact on right heart function, etc (4) Tinea cruris: Plan: Candidal rash of groin & skin folds - Miconazole powder BID (5) Psoriasis: Plan: Extensive, severe No joint involvement Reportedly refused biologics in the past For problem areas can use triamcinolone cream 0.5% TID in thin amounts - avoid face/genitals (6) Morbid obesity with BMI of 60.0-69.9, adult: Plan: BMI 50s (7) Benign essential hypertension: Plan: Cont triamterene/HCTZ Plan VTE Prophylaxis - Lovenx 40mg SQ BID ?thrush - nystatin solution 5cc swish/spit QID PT/OT consulted, recommending rehab updated at bedside Admission and Anticipated Discharge Date Admission Date: August 24, 2023 Subjective tele stable overnight patient sleeping upon arrival woke up easily at bedside mild scrotal pain no worse than prior denies any dyspnea has long standing psoriasis has been to dermatology in the past but has declined biologics for it does have areas of pruritis Review of Systems Review of Systems: gen - admits to feeling very weak with standing but wants to go HOME at discharge cv - no chest pain pulm - no dyspnea at rest GI - no abd pain; no nausea/emesis - phelps remains in place; mild hematuria in the phelps bag Physical Exam Physical Exam: gen - morbidly obese, NAD neck - no obvious JVD mouth - irritated buccal mucosa, ?thrush plaques, MM slightly dry skin - COPIOUS/ too numerous to count psoriatic plaques covering arms, legs, torso, etc; no superimposed cellulitis any location; candidal rash under skin folds of abd pannus; candidal rash vs tinea cruris of groin b/l heart - heart tones are distant, RRR, s1 s2, no obvious murmur lungs - decreased BS bases, apices CTA b/l abd - soft NT ND BS+ - phelps in place; scrotal edema present; packing in place ext - 1+ edema b/l extending to thighs, pulses 2+ b/l psych - a/o x 3 Results & Data Results & Data Vital Signs (Past 12 Hours) Vital Signs Temp Pulse Pulse Resp BP Pulse Ox O2 Del Method 08/29/23 11:37 36.9 C 92 H 18 146/83 H 91 Room Air 08/29/23 08:00 Room Air 08/29/23 08:00 Room Air 08/29/23 07:58 36.6 C 73 18 158/89 H 93 Room Air 08/29/23 07:00 80 08/29/23 04:00 36 C L 75 20 168/98 H 95 Oxymask 08/28/23 23:59 85 Laboratory Results Laboratory Results - last 24 hr 08/29/23 08/29/23 08/29/23 06:11 07:37 08:24 WBC 10.12 RBC 4.35 L Hgb 12.9 L Hct 39.5 L MCV 90.8 MCH 29.7 MCHC 32.7 RDW Std Deviation 45.0 RDW Coeff of Nelson 13.4 Plt Count 234 MPV 8.7 L Sodium TNP TNP 140 Potassium TNP TNP 3.6 Chloride 98 Carbon Dioxide 36 H Anion Gap TNP BUN 14 Creatinine 0.47 L Est Cr Clr Drug Dosing 386.7 Est GFR ( Amer) 149.2 Est GFR (Non-Af Amer) 128.7 BUN/Creatinine Ratio 29.8 H Glucose 113 H Calcium 8.9 Diagnostic Findings Microbiology 08/24/23 Unknown Scrotum Gram Stain - Final 08/24/23 Unknown Scrotum Aerobic and Anaerobic Culture - Final Corynebacterium species Peptostreptococcus anaerobius Bacteroides fragilis group Peptoniphilus asaccharolyticus 08/24/23 12:10 Blood Aerobic Blood Culture - Final No growth in Aerobic bottle after 5 days. 08/24/23 12:10 Blood Anaerobic Blood Culture - Final No growth in Anaerobic bottle after 5 days. 08/24/23 12:20 Blood Aerobic Blood Culture - Final No growth in Aerobic bottle after 5 days. 08/24/23 12:20 Blood Anaerobic Blood Culture - Final No growth in Anaerobic bottle after 5 days. 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
[2023-08-29] MEDS: MICONAZOLE NITRATE 2% CR 30 GM TUBE EXT SCH ×2 (13:51→21:35)
[2023-08-29] MEDS: NYSTATIN SUSP 500,000 U/5 ML UDC PO SCH ×3 (13:51→21:35)
[2023-08-29] MEDS: TRIAMCINOLONE ACET 0.5% CR 15 GM TUBE EXT SCH ×2 (13:52→21:36)
[2023-08-30] MEDS: PIPERACILLIN/TAZOBACTAM 4.5 GM in DEXTROSE 5% MINI-B 100 ML IV SCH ×2 (00:22→08:47)
[2023-08-30] MEDS: ENOXAPARIN INJ 40 MG/0.4 ML SYR SQ SCH ×2 (00:26→12:58)
[2023-08-30] MEDS: KETOROLAC 30 MG/ML VIAL IV PRN ×3 (01:21→21:01)
[2023-08-30 07:05] LABS: Base Excess VBG 11.2 mEq/L; HCO3 VBG 37 mmol/L; Oxygen Saturation VBG 98.9 %; PCO2 VBG 49 mmHg (38-50); PO2 VBG 177 mmHg; pH VBG 7.48 (7.36-7.41)
[2023-08-30 07:39] LABS: Calcium 9.1 mg/dl (8.6-10.3); Creatinine Clr Calc Pharmacy 363.5 ml/min; Est GFR (African American) 145.4 ml/min; Est GFR (Non-African American) 125.5 ml/min; Potassium 3.6 mmol/L (3.5-5.1)
[2023-08-30] MEDS: LINEZOLID 600 MG/300 ML BAG IV SCH (07:47)
[2023-08-30 07:54] LABS: Thyroid Stimulating Hormone 1.597 uIu/ml (0.300-4.500)
[2023-08-30] MEDS: TRIAMTERENE/HCTZ 37.5/25MG CAP PO SCH (08:43)
[2023-08-30] MEDS: TRIAMCINOLONE ACET 0.5% CR 15 GM TUBE EXT SCH ×3 (08:43→20:29)
[2023-08-30] MEDS: NYSTATIN SUSP 500,000 U/5 ML UDC PO SCH ×4 (08:43→20:31)
[2023-08-30] MEDS: PANTOprazole 40 MG TAB PO SCH (08:43)
[2023-08-30] MEDS: MICONAZOLE NITRATE 2% CR 30 GM TUBE EXT SCH ×2 (08:43→20:29)
--- NOTE | 2023-08-30 09:26 | Infectious Disease Consult ---
Date of Consultation August 30, 2023 Assessment & Plan (1) Leanne's gangrene: Plan 52 yo M with history of psoriasis who presented on 08/24 with scrotal swelling and pain x 2 days, chills, admitted with Leanne's gangrene s/p I&D 08/24/23. On presentation, pt was afebrile, tachycardic, with WBC 14.3, lactate 2.3. CT A/P with IV contrast showed marked scrotal edema, stranding extending to base of scrotum/penis and perineum c/w cellulitis, gas and fluid containing 5 x 3 cm posterior scrotal fluid c/w abscess, suspected additional smaller scrotal abscess c/w gas-forming infectious process. Patient was started on linezolid, pip-tazo, clindamycin. Urology was consulted for Leanne's gangrene and took the patient to the OR on 08/24. Purulence was drained and necrotic tissue was removed; wound was packed. OR cultures grew Corynebacterium species, Peptostreptococcus anaerobius, Bacteroides fragilis group, Peptoniphilus asaccharolyticus. Patient currently continues on linezolid, pip-tazo, and his leukocytosis has resolved. Micro: 08/24 Scrotal abscess fluid OR cx: Corynebacterium species, Peptostreptococcus anaerobius, Bacteroides fragilis group, Peptoniphilus asaccharolyticus 08/24 BCx x2: NG Abx: Linezolid 08/24 - present Pip-tazo 08/24 - present Vanc 08/24 Clinda 08/24 - 08/26 Cefepime 08/24 Problems: #Leanne's gangrene s/p I&D 08/24 Recommendations: -Discontinued linezolid -Closer to discharge, can transition from pip-tazo to amox-clav 875 mg PO BID to complete a 14 day course from debridement (08/24 - 09/07) Will sign off. Please page [facility] with further questions. Consultation Information Consultation was provided via telemedicine using two-way real-time interactive telecommunication between the patient and the telemedicine provider. For the duration of the visit, the provider was performing the assessment from a different facility than the patient. This includesuse of Treedomthoscope forauscultationperformed by the telepresenter that the telemedicine provider can hear if described in the physical exam. Story Editor contact information: Please call [facility] . (Phone Number For Physician Use Only) After establishing a telemedicine visit, patient was: Patient was verified with two unique identifiers, Patient/authorized rep acknowledged consent and understanding and Gave permission to continue telehealth session Time Spent with Patient: Initial => 40 min History of Present Illness Reason for Consultation: Lenane's gangrene Requesting Physician: Dr. Fatima Attending Physician: Obed Fatima MD History of Present Illness 52 yo M with history of psoriasis who presented on 08/24 with scrotal swelling and pain x 2 days, with associated chills. Denied fevers. On presentation, pt was afebrile, tachycardic. Labs showed WBC 14.3, lactate 2.3. CT A/P with IV contrast showed marked scrotal edema, stranding extending to base of scrotum/penis and perineum c/w cellulitis, gas and fluid containing 5 x 3 cm posterior scrotal fluid c/w abscess, suspected additional smaller scrotal abscess c/w gas-forming infectious process. Patient was started on linezolid, pip-tazo, clindamycin. Urology was consulted for Leanne's gangrene and took the patient to the OR on 08/24. Purulence was drained and necrotic tissue was removed. The wound was packed. OR cultures grew Corynebacterium species, Peptostreptococcus anaerobius, Bacteroides fragilis group, Peptoniphilus asaccharolyticus. Patient currently continues on linezolid, pip-tazo, and his leukocytosis has resolved. On my evaluation, pt reports feeling improved. He expresses concern about how he will urinate and avoid contaminating the wound after the phelps is removed. Allergies Allergy/AdvReac Type Severity Reaction Status Date / Time No Known Allergies Allergy Unverified 08/27/23 16:54 Home Medications Medication Instructions Recorded Confirmed Type acetaminophen 325 mg tablet 0 mg PO Q6H PRN Pain 04/15/19 08/27/23 History (Tylenol) cranberry extract 500 mg capsule 0 mg PO DAILY 04/15/19 08/27/23 History elderberry fruit 200 mg capsule 0 mg PO DAILY ##0 04/15/19 08/27/23 History hydrocortisone 2.5 % topical cream 1 applic topical BID 08/27/23 08/27/23 History metformin 500 mg tablet,extended 1,000 mg PO BID 08/27/23 08/27/23 History release 24 hr mupirocin 2 % topical ointment 1 applic topical TID 08/27/23 08/27/23 History triamterene 37.5 1 cap PO DAILY 08/27/23 08/27/23 History mg-hydrochlorothiazide 25 mg capsule Patient History Medical History Psoriasis Surgical History (Updated 08/24/23 @ 15:01 by Obed Saenz MD) History of appendectomy History of cholecystectomy Social History Smoking Status: Current some day smoker Tobacco Type: Cigarettes and Pipe Second Hand Exposure: No; Do You Dip or Chew Tobacco: No; 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 Physical Exam Physical Exam: GEN: Well-appearing, in NAD. RESP: No increased work of breathing SKIN: Scrotal incision with packing in place, no significant surrounding erythema. NEURO: Alert and oriented. Answers all questions appropriately. Speech not slurred. PSYCH: Normal mood, affect appropriate. Results & Data Vital Signs (Past 12 Hours) Vital Signs Temp Pulse Pulse Resp BP Pulse Ox O2 Del Method 08/30/23 07:41 36.5 C 85 18 133/78 92 Room Air 08/30/23 07:00 77 08/30/23 04:00 36.9 C 86 20 141/87 H 94 Room Air 08/30/23 01:34 Room Air 08/29/23 23:00 36.7 C 95 H 20 131/79 94 Room Air 08/29/23 21:54 92 H Laboratory Results [facility] 08/30/23 06:51 Sodium 141 Potassium 3.6 Chloride 100 Carbon Dioxide 33 H BUN 16 Creatinine 0.50 L Glucose 124 H Calcium 9.1 Medications Administered Current Inpatient Medications Acetaminophen (Acetaminophen 325 Mg Tab) 650 mg PO Q4H PRN PRN Reason: Pain or Fever Stop: 09/23/23 18:54 Last Admin: 08/27/23 09:27 Dose: 650 mg Enoxaparin Sodium (Enoxaparin Inj 40 Mg/0.4 Ml Syr) 40 mg SQ Q12H [facility] Stop: 09/25/23 12:59 Last Admin: 08/30/23 00:26 Dose: 40 mg Linezolid (Zyvox) 600 mg in 300 mls @ 300 mls/hr IV Q12H [facility] Stop: 09/08/23 19:59 Last Admin: 08/30/23 07:47 Dose: 300 mls/hr Piperacillin Sod/Tazobactam (Sod 4.5 gm/ Dextrose) 100 mls @ 25 mls/hr IV Q8H [facility]; Protocol Stop: 09/08/23 00:00 Last Infusion: 08/30/23 04:25 Dose: Infused Ketorolac Tromethamine (Ketorolac 30 Mg/Ml Vial) 30 mg IV Q6H PRN PRN Reason: Pain Stop: 08/31/23 11:44 Last Admin: 08/30/23 07:51 Dose: 30 mg Miconazole Nitrate (Miconazole Nitrate 2% Cr 30 Gm Tube) 1 appln EXT BID [facility] Stop: 09/28/23 11:59 Last Admin: 08/30/23 08:43 Dose: 1 appln Nystatin (Nystatin Susp 500,000 U/5 Ml Udc) 5 ml PO QID [facility] Stop: 09/08/23 12:59 Last Admin: 08/30/23 08:43 Dose: 5 ml Ondansetron HCl (Ondansetron Inj 2 Mg/Ml 2 Ml Vial) 4 mg IV Q4H PRN PRN Reason: Nausea Stop: 09/23/23 21:34 Pantoprazole Sodium (Pantoprazole 40 Mg Tab) 40 mg PO QAM [facility] Stop: 09/27/23 08:59 Last Admin: 08/30/23 08:43 Dose: 40 mg Triamcinolone Acetonide (Triamcinolone Acet 0.5% Cr 15 Gm Tube) 1 appln EXT TID [facility] Stop: 09/28/23 13:59 Last Admin: 08/30/23 08:43 Dose: 1 appln Triamterene/Hydrochlorothiazide (Triamterene/Hctz 37.5/25mg Cap) [facility] [place]: 09/26/23 12:59 Last Admin: 08/30/23 08:43 Dose: 1 cap
--- NOTE | 2023-08-30 11:34 | Hospitalist Progress Note ---
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 08/24/[address] Hanna - [facility] [place] U[facility] Remains on IV zosyn and linezolid Blood cultures negative Surgical wound culture grew Corynebacterium species, Peptostreptococcus anaerobius, Bacteroides fragilis group, and Peptoniphilus asaccharolyticus ID consult appreciated Can d/c zyvox Change zosyn to augmentin Plan 2 weeks of Rx from date of his surgery Phelps catheter remains - urology states we can remove phelps any time moving forward (2) Sepsis: Plan: 2nd #1 above - resolved Blood cx's negative Scrotal cx results as above in #1 See #1 re: antibiotics (3) Acute hypercapnic respiratory failure: Plan: ABG several days ago with pH of 7.24 with CO2 of 98 on 08/26 Refused BiPAP then and also on subsequent days Has never had formal sleep study All narcotics have been d/c due to concern for severe EMEYL/OHS Avoid all sedatives VBG today with improved parameters / pCO2 Again had lengthy discussion with him today regarding concerns about untreated, severe EMELY and its long-term impact on right heart function, etc Further, the arrhythmias & AV block we are seeing on monitoring is related to his EMELY as well Still refusing BIPAP, etc (4) Tinea cruris: Plan: Candidal rash of groin & skin folds - Miconazole powder BID (5) Psoriasis: Plan: Extensive, severe No joint involvement Reportedly refused biologics in the past For problem areas can use triamcinolone cream 0.5% TID in thin amounts - avoid face/genitals (6) Morbid obesity with BMI of 60.0-69.9, adult: Plan: BMI 50s (7) Benign essential hypertension: Plan: Cont triamterene/HCTZ (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 seen this am on telemetry along with higher block/AV dissociation all arrhythmias were seen WHILE HE WAS SLEEPING - no symptoms the AV block is most likely due to severe EMELY the treatment would be Rx of the EMELY - which he adamantly refuses to do pacemaker implantation would not fix the EMELY I counseled him on the above issues extensively today - still not agreeable to any Rx of his EMELY could consider overnight oximetry study the day before discharge but this is not a good long-term fix for this massive problem will obtain echo to assess left & right heart function (9) EMELY (obstructive sleep apnea): Plan: severe see above Plan VTE Prophylaxis - Lovenx 40mg SQ BID ?thrush - nystatin solution 5cc swish/spit QID PT/OT consulted, recommending rehab - refusing such updated at bedside yesterday I also updated her by phone this evening we discussed the dilemma of him needing rehab but that he wants to go home she is afraid that she cannot care for him - they have limited family/friends that can help, and they have no children even before he got sick it was hard for him to ambulate, do ADLs, etc encouraged her to speak with him tomorrow about rehab again and I will encourage rehab once more as well Admission and Anticipated Discharge Date Admission Date: August 24, 2023 Subjective tele - NSR, however during sleep and with witnessed apnea he has had multiple episodes of AV dissociation lasting several seconds as well as Mobitz 1 AV block no AV block or other dysrhythmia during awake hours he denies any new complaints still adamant about returning home - does NOT want to go to rehab he states he has a bad right hip and that rehab won't go that well anyway because of his limitations just from the hip alone we discussed the telemetry results and its link to his severe, untreated EMELY he is adamant about not wearing CPAP or BIPAP he states "I've tried them" - they "don't work for me" he last saw pulmonology for his EMELY 10-15+ years ago Review of Systems Review of Systems: cv - no chest pain pulm - no dyspnea GI - no nausea/emesis - scrotal pain is controlled Physical Exam Physical Exam: gen - morbidly obese, NAD, lying comfortably in bed neck - no obvious JVD mouth - irritated buccal mucosa, MM slightly dry skin - COPIOUS/ too numerous to count psoriatic plaques covering arms, legs, torso, etc; no superimposed cellulitis any location; candidal rash under skin folds of abd pannus; candidal rash vs tinea cruris of groin b/l heart - heart tones are distant, RRR, s1 s2, no obvious murmur lungs - decreased BS bases, o/w CTA b/l abd - soft NT ND BS+ - phelps in place; scrotal edema present but improved; packing in place on undersurface of scrotum intact ext - <1+ edema b/l extending to thighs, pulses 2+ b/l psych - a/o x 3 Results & Data Results & Data Vital Signs (Past 12 Hours) Vital Signs Temp Pulse Pulse Resp BP Pulse Ox O2 Del Method 08/30/23 11:09 36.3 C L 72 18 141/89 H 91 Room Air 08/30/23 07:41 36.5 C 85 18 133/78 92 Room Air 08/30/23 07:00 77 08/30/23 04:00 36.9 C 86 20 141/87 H 94 Room Air 08/30/23 01:34 Room Air Laboratory Results Laboratory Results - last 24 hr 08/30/23 06:51 VBG pH 7.48 H VBG pCO2 49 VBG pO2 177 VBG HCO3 37 VBG O2 Saturation 98.9 VBG Base Excess 11.2 Sodium 141 Potassium 3.6 Chloride 100 Carbon Dioxide 33 H Anion Gap 8 BUN 16 Creatinine 0.50 L Est Cr Clr Drug Dosing 363.5 Est GFR ( Amer) 145.4 Est GFR (Non-Af Amer) 125.5 BUN/Creatinine Ratio 32.0 H Glucose 124 H Calcium 9.1 Ammonia 37.0 TSH 1.597 PG Care Time/CCT Total # of Minutes Spent Total Time Spent with Patient: Total time spent is greater than 50% in coordination of care (as documented) at patient's floor/unit and/or counseling patient: Coding Level of Care Code 01533 SUB INP/OBS CARE 3/50MIN 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 AV dissociation I45.89 EMELY (obstructive sleep apnea) G47.33
--- NOTE | 2023-08-30 16:25 | XCELERA ---
[id number]
[2023-08-30] MEDS: AMOXICILLIN/CLAVULANATE 875 MG TAB PO SCH (17:09)
[2023-08-30] MEDS ORDERED: MICONAZOLE NITRATE POWDER 85 GM EXT PRN (17:12)
[2023-08-31] MEDS: ENOXAPARIN INJ 40 MG/0.4 ML SYR SQ SCH ×2 (01:31→13:30)
[2023-08-31] MEDS: AMOXICILLIN/CLAVULANATE 875 MG TAB PO SCH ×2 (08:48→16:21)
[2023-08-31] MEDS: NYSTATIN SUSP 500,000 U/5 ML UDC PO SCH ×4 (08:49→22:13)
[2023-08-31] MEDS: TRIAMTERENE/HCTZ 37.5/25MG CAP PO SCH (08:49)
[2023-08-31] MEDS: TRIAMCINOLONE ACET 0.1% CR 80 GM TUBE EXT SCH ×3 (08:49→22:14)
[2023-08-31] MEDS: MICONAZOLE NITRATE 2% CR 30 GM TUBE EXT SCH ×2 (08:49→22:14)
[2023-08-31] MEDS: PANTOprazole 40 MG TAB PO SCH (08:49)
[2023-08-31 08:57] LABS: BUN Creatinine Ratio 29.6 (10-20); Blood Urea Nitrogen 16 mg/dl (6-23); Calcium 8.8 mg/dl (8.6-10.3); Carbon Dioxide 34 mmol/L (21-32); Chloride 101 mmol/L (98-107); Creatinine Clr Calc Pharmacy 336.6 ml/min; Est GFR (African American) 140.9 ml/min; Est GFR (Non-African American) 121.6 ml/min; Glucose 108 mg/dl (70-99(Fasting))
[2023-08-31 10:35] LABS: Potassium 3.9 mmol/L (3.5-5.1)
--- NOTE | 2023-08-31 18:08 | Hospitalist Progress Note ---
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 08/24/[address] Hanna - [facility] [place] U[facility] Blood cultures negative Surgical wound culture grew Corynebacterium species, Peptostreptococcus anaerobius, Bacteroides fragilis group, and Peptoniphilus asaccharolyticus ID consult appreciated Had been on IV zyvox and IV zosyn Both IV agents stopped late 08/30, transitioned to PO augmentin 08/30/23 PM Plan 2 weeks of Rx from date of his surgery Phelps catheter remains - urology states we can remove phelps any time moving forward Will remove later today (2) Sepsis: Plan: 2nd #1 above - resolved Blood cx's negative Scrotal cx results as above in #1 See #1 re: antibiotics (3) Acute hypercapnic respiratory failure: Plan: ABG several days ago with pH of 7.24 with CO2 of 98 on 08/26 Refused BiPAP then and also on subsequent days Has never had formal sleep study All narcotics have been d/c due to concern for severe EMELY/OHS Avoid all sedatives VBG yesterday with improved parameters / pCO2 Multiple discussions this admission with him regarding concerns about untreated, severe EMELY and its long-term impact on right heart function, etc Further, the arrhythmias & AV block we are seeing on monitoring are related to his EMELY as well Still refusing BIPAP, etc (4) Tinea cruris: Plan: Candidal rash of groin & skin folds - Miconazole powder BID (5) Psoriasis: Plan: Extensive, severe No joint involvement Reportedly refused biologics in the past For problem areas can use triamcinolone cream 0.5% (or 0.1%, whatever is available) TID in thin amounts - avoid face/genitals (6) Morbid obesity with BMI of 60.0-69.9, adult: Plan: BMI 50s (7) Benign essential hypertension: Plan: Cont triamterene/HCTZ (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 seen along with higher block/AV dissociation over the last few days all arrhythmias have been seen WHILE HE WAS SLEEPING - no symptoms the AV block is most likely due to severe EMELY the treatment would be Rx of the EMELY - which he adamantly refuses to do pacemaker implantation would not fix the EMELY I counseled him on the above issues extensively - he is not agreeable to any Rx of his EMELY could consider overnight oximetry study the day before discharge to try and qualify him for NC O2 (for sleep) but this is not a good long-term fix for this massive problem echo - with limited windows - shows preserved LV function RV not well seen unfortunately (9) EMELY (obstructive sleep apnea): Plan: severe see above Plan VTE Prophylaxis - Lovenx 40mg SQ BID ?thrush - nystatin solution 5cc swish/spit QID -- improved PT/OT consulted, recommending rehab - finally agreeable to such referral to [facility] pending updated by phone yesterday evening Admission and Anticipated Discharge Date Admission Date: August 24, 2023 Subjective tele continues to show brief runs of Mobitz AV block (mainly type 1) along with AV dissociation runs are typically 5-7 sec in duration all runs are while he is sleeping - NOT awake no new issues today he is feeling well he is NOW agreeable to rehab placement at [facility] he realizes he is too weak to go home he worries about his operative site on the scrotum phelps remains in place Review of Systems Review of Systems: gen - no fevers cv - no chest pain pulm - no dyspnea GI - no N/V; no diarrhea; moving bowels - scrotal discomfort - stable pain (minimal) Physical Exam Physical Exam: gen - morbidly obese, NAD, lying comfortably in bed neck - no obvious JVD mouth - irritated buccal mucosa improved; MM more moist today skin - COPIOUS/ too numerous to count psoriatic plaques covering arms, legs, torso, etc; no superimposed cellulitis any location; candidal rash under skin folds of abd pannus; candidal rash vs tinea cruris of groin b/l heart - heart tones are distant, RRR, s1 s2, no obvious murmur lungs - decreased BS bases, o/w CTA b/l abd - soft NT ND BS+ - phelps in place; scrotal edema largely resolved; packing in place on undersurface of scrotum intact; no purulence; no malodor ext - no peripheral edema b/l, pulses 2+ b/l psych - a/o x 3 Results & Data Results & Data Vital Signs (Past 12 Hours) Vital Signs Temp Pulse Pulse Resp BP Pulse Ox O2 Del Method 08/31/23 15:03 36.7 C 88 16 136/82 94 Room Air 08/31/23 15:00 87 08/31/23 07:39 36.4 C L 74 16 123/78 92 Room Air 08/31/23 07:00 78 Laboratory Results Laboratory Results - last 24 hr 08/31/23 08/31/23 07:41 10:05 Sodium TNP 140 Potassium TNP 3.9 Chloride 101 Carbon Dioxide 34 H Anion Gap TNP BUN 16 Creatinine 0.54 L Est Cr Clr Drug Dosing 336.6 Est GFR ( Amer) 140.9 Est GFR (Non-Af Amer) 121.6 BUN/Creatinine Ratio 29.6 H Glucose 108 H Calcium 8.8 PG Care Time/CCT Total # of Minutes Spent Total Time Spent with Patient: Total time spent is greater than 50% in coordination of care (as documented) at patient's floor/unit and/or counseling patient: Coding Level of Care Code 56986 SUB INP/OBS CARE 2/35MIN 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 AV dissociation I45.89 EMELY (obstructive sleep apnea) G47.33
[2023-08-31] MEDS ORDERED: HYDROCODONE/ACETAMOPHEN 5/325MG TAB PO PRN (20:20)
[2023-08-31] MEDS: CELECOXIB 100 MG CAP PO SCH (22:22)
[2023-09-01] MEDS: ENOXAPARIN INJ 40 MG/0.4 ML SYR SQ SCH ×2 (01:06→13:12)
[2023-09-01 07:55] LABS: Hemoglobin 13.6 g/dl (14.0-18.0); Mean Corpuscular Hemoglobin 30.3 pg (25.0-34.0); Mean Corpuscular Hgb Conc 32.4 g/dL (32.0-36.0); Mean Corpuscular Volume 93.5 fL (80.0-100.0); Mean Platelet Volume 9.6 fL (9.4-12.4); Platelet Count 304 K/uL (130-400); RDW Coefficient of Variation 14.5 % (11.5-14.5); RDW Standard Deviation 49.1 fL (36.4-46.3); Red Blood Count 4.49 M/uL (4.70-6.10); White Blood Count 12.98 K/ul (4.8-10.8)
[2023-09-01] MEDS: CELECOXIB 100 MG CAP PO SCH (08:02)
[2023-09-01] MEDS: MICONAZOLE NITRATE 2% CR 30 GM TUBE EXT SCH (08:02)
[2023-09-01] MEDS: TRIAMCINOLONE ACET 0.1% CR 80 GM TUBE EXT SCH ×2 (08:02→13:12)
[2023-09-01] MEDS: NYSTATIN SUSP 500,000 U/5 ML UDC PO SCH ×3 (08:03→16:05)
[2023-09-01] MEDS: TRIAMTERENE/HCTZ 37.5/25MG CAP PO SCH (08:03)
[2023-09-01] MEDS: PANTOprazole 40 MG TAB PO SCH (08:03)
[2023-09-01] MEDS: AMOXICILLIN/CLAVULANATE 875 MG TAB PO SCH ×2 (08:03→16:05)
[2023-09-01 08:12] LABS: BUN Creatinine Ratio 27.8 (10-20); Blood Urea Nitrogen 15 mg/dl (6-23); Calcium 8.5 mg/dl (8.6-10.3); Carbon Dioxide 33 mmol/L (21-32); Chloride 101 mmol/L (98-107); Creatinine Clr Calc Pharmacy 336.6 ml/min; Est GFR (African American) 140.9 ml/min; Est GFR (Non-African American) 121.6 ml/min; Glucose 99 mg/dl (70-99(Fasting))
[2023-09-01 09:56] LABS: Potassium 4.2 mmol/L (3.5-5.1)
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
== END 2023-09-01 17:01 | DRG 853 ==
LOC: ED 11:09 → OR 14:58 → 2N 15:15 → SUATTDRO 15:15 → 2N 08-25 16:20

== ENCOUNTER 2024-03-05 17:18 | Inpatient (IN) ==
[~2024-03-05 17:18] MED LIST: ETOMIDATE 2 MG/ML 20 ML VIAL IV ONE; SUCCINYLCHOLINE CHLORIDE 20 MG/ML 10 ML VIAL IV ONE
--- NOTE | 2024-03-05 17:52 | XRay Report ---
XR chest 1V portable HISTORY: 53 years-old Male ams acutely altered mental status COMPARISON: 08/24/2023 TECHNIQUE: AP view of the chest FINDINGS: Cardiac silhouette is enlarged. Mild bibasilar densities suggest atelectasis. No pneumothorax, large pleural effusion or overt pulmonary edema. IMPRESSION: Cardiomegaly without acute process. ACT 112: Negative or not required by law. The above report was generated using voice recognition software. It may contain grammatical, syntax o r spelling errors. Electronically signed by: Filippo Torres M.D. 03/05/2024 5:50 PM
[2024-03-05 17:59] LABS: iSTAT Arterial Blood Gas HCO3 33 meg/L (19-24); iSTAT Arterial Blood Gas pCO2 78 mmHg (35-46); iSTAT Arterial Blood Gas pH 7.24 (7.35-7.45); iSTAT Arterial Blood Gas pO2 67 mmHg (80-95); iSTAT Carbon Dioxide 36 mmol/L (24-31); iSTAT Hematocrit 50 % (42-52); iSTAT Sodium 132 mmol/L (135-144)
[2024-03-05 18:04] LABS: iSTAT Creatinine 1.8 mg/dl (0.6-1.3); iSTAT Hemoglobin 17.7 g/dl (14.0-18.0); iSTAT Ionized Calcium 1.02 mmol/l (1.12-1.32); iSTAT Potassium 5.9 mmol/L (3.3-5.0)
[2024-03-05] MEDS: LORazepam 1 MG/1 ML SYR ED Inj Use IV STA (18:06)
[2024-03-05 18:09] LABS: Basophils # (auto) 0.08 K/uL (0.00-0.20); Basophils % (auto) 0.6 %; Eosinophils # (auto) 0.01 K/uL (0.00-0.50); Eosinophils % (auto) 0.1 %; Hemoglobin 14.7 g/dl (14.0-18.0); Immature Granulocytes # (auto) 0.17 K/uL (0.01-0.20); Immature Granulocytes % (auto) 1.2 %; Lymphocytes # (auto) 1.84 K/uL (1.20-3.40); Lymphocytes % (auto) 13.3 %; Mean Corpuscular Hemoglobin 24.1 pg (25.0-34.0); Mean Corpuscular Hgb Conc 29.4 g/dL (32.0-36.0); Mean Corpuscular Volume 81.8 fL (80.0-100.0); Mean Platelet Volume 9.2 fL (9.4-12.4); Monocytes % (auto) 10.1 %; Neutrophils # (auto) 10.33 K/uL (1.40-6.50); Neutrophils % (auto) 74.7 %; Nucleated RBC # (auto) 0.02 K/uL (0.00-0.12); Nucleated RBC % (auto) 0.1 %; Platelet Count 344 K/uL (130-400); RDW Coefficient of Variation 19.1 % (11.5-14.5); RDW Standard Deviation 52.6 fL (36.4-46.3); Red Blood Count 6.11 M/uL (4.70-6.10); White Blood Count 13.83 K/ul (4.8-10.8)
--- NOTE | 2024-03-05 18:09 | Emergency Department Note ---
History of Present Illness General Chief complaint: Shortness of Breath/Dyspnea Stated complaint: WEAKNESS Time Seen by Provider: 03/05/24 17:27 Source: EMS History of Present Illness Provider complaint: Weakness shortness of breath 53-year-old presents emergency department for weakness and shortness of breath. Per EMS, they were called to the patient's residence for weakness. They state that the patient has not been eating well for the last 2 days. Patient states that is because his wants him to lose weight. These he states he has been drinking lots of water. He states he has been feeling short of breath. EMS arrived and reported the patient's oxygen saturation was 60% on room air. Patient refused BiPAP/CPAP for EMS. Patient reports no pain. Home Medications Medication Instructions Recorded Confirmed Type [id number] 250 2 - 4 tab PO Q8 PRN Pain 03/05/24 03/05/24 History mg-250 mg-65 mg tablet (Excedrin Extra Strength) celecoxib 100 mg capsule 100 mg PO BID PRN Pain 03/05/24 03/05/24 History metformin 1,000 mg tablet,extended 1,000 mg PO BID 03/05/24 03/05/24 History release 24hr (osmotic) triamterene 37.5 1 cap PO DAILY 03/05/24 03/05/24 History mg-hydrochlorothiazide 25 mg capsule Allergies Allergy/AdvReac Type Severity Reaction Status Date / Time No Known Allergies Allergy Unverified 03/05/24 19:32 Past Med/Surg History Problem List (Updated 03/06/24 @ 00:21 by Stephen Espitia MD) Hyperkalemia (Acute) EVA (acute kidney injury) (Acute) Elevated LFTs (Acute) Acute liver failure Morbid obesity (Acute) Encephalopathy Respiratory failure requiring intubation Obesity Sinus pause EMELY (obstructive sleep apnea) Acute hypercapnic respiratory failure (Acute) Sepsis (Acute) Leanne's gangrene (Acute) Hypoxia (Acute) SOB (shortness of breath) Medical History Prediabetes Candidiasis of mouth and esophagus AV block Benign essential hypertension Tinea cruris Psoriasis Pickwickian syndrome Cellulitis of leg, right Morbid obesity with BMI of 60.0-69.9, adult Surgical History History of appendectomy History of cholecystectomy Social History Smoking Status: Current every day smoker Tobacco Type: Cigarettes Cigarettes Per Day: pack per day; Second Hand Exposure: No; Do You Dip or Chew Tobacco: No; Hx Alcohol Use: No (quit 4 yrs ago) Hx Substance Use: No Preferred Language: Ukrainian Communication Ability: Effective 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 Beliefs That Will Affect Care: None Current Living Situation: Spouse Other Information That Helps Us Care for You: No Feels Safe at Home: Yes Safety Concerns: Feels Safe At This Time Assistive Devices: Cane Physical Exam Vital Signs Vital Signs - 24 hr 03/05/24 17:24 03/05/24 17:24 03/05/24 17:27 Temperature Temperature Source Pulse Rate 103 H Pulse Rate from SpO2 Sensor Pulse Rhythm Pulse Strength Respiratory Rate 39 H Respiratory Depth Shallow Blood Pressure Blood Pressure [Left Arm] Blood Pressure Mean Blood Pressure Mean [Left Arm] Pulse Oximetry 64 L Oxygen Delivery Method Ox[place] Oxygen Flow Rate 0 Fraction of Inspired Oxygen Sepsis Recent Fever Within 48 Hours Sepsis New/Unexplained Change in Mental Status Sepsis Action Taken by Nursing End-Tidal CO2 Oxygen Flow Rate - Titration 15 Pulse Oximetry Post Tiitration 90 03/05/24 17:28 03/05/24 17:28 03/05/24 17:29 Temperature Temperature Source Pulse Rate 93 H Pulse Rate from SpO2 Sensor Pulse Rhythm Pulse Strength Respiratory Rate Respiratory Depth Blood Pressure 160/102 H 160/102 H Blood Pressure [Left Arm] Blood Pressure Mean 115 115 Blood Pressure Mean [Left Arm] Pulse Oximetry Oxygen Delivery Method Oxygen Flow Rate Fraction of Inspired Oxygen Sepsis Recent Fever Within 48 Hours Sepsis New/Unexplained Change in Mental Status Sepsis Action Taken by Nursing End-Tidal CO2 Oxygen Flow Rate - Titration Pulse Oximetry Post Tiitration 03/05/24 17:39 03/05/24 17:39 03/05/24 17:53 Temperature 37.4 C 37.4 C Temperature Source Oral Oral Pulse Rate 94 H 94 H Pulse Rate from SpO2 Sensor Pulse Rhythm Regular Regular Pulse Strength Normal Respiratory Rate 26 H 26 H 26 H Respiratory Depth Shallow Shallow Blood Pressure Blood Pressure [Left Arm] 160/102 H Blood Pressure Mean Blood Pressure Mean [Left Arm] 121 Pulse Oximetry 90 90 90 Oxygen Delivery Method Non-rebreather Oxymask Oxymask Oxygen Flow Rate 15 15 Fraction of Inspired Oxygen Sepsis Recent Fever Within 48 Hours No Sepsis New/Unexplained Change in Mental Status No Sepsis Action Taken by Nursing No Action Required End-Tidal CO2 Oxygen Flow Rate - Titration Pulse Oximetry Post Tiitration 03/05/24 17:57 03/05/24 18:03 03/05/24 18:06 Temperature Temperature Source Pulse Rate 89 89 89 Pulse Rate from SpO2 Sensor 88 89 87 Pulse Rhythm Pulse Strength Respiratory Rate 22 21 20 Respiratory Depth Blood Pressure Blood Pressure [Left Arm] Blood Pressure Mean Blood Pressure Mean [Left Arm] Pulse Oximetry 94 96 96 Oxygen Delivery Method Oxygen Flow Rate Fraction of Inspired Oxygen Sepsis Recent Fever Within 48 Hours Sepsis New/Unexplained Change in Mental Status Sepsis Action Taken by Nursing End-Tidal CO2 Oxygen Flow Rate - Titration Pulse Oximetry Post Tiitration 03/05/24 18:17 03/05/24 18:17 03/05/24 18:17 Temperature Temperature Source Pulse Rate Pulse Rate from SpO2 Sensor Pulse Rhythm Pulse Strength Respiratory Rate Respiratory Depth Blood Pressure 160/112 H 160/112 H 160/112 H Blood Pressure [Left Arm] Blood Pressure Mean 126 126 126 Blood Pressure Mean [Left Arm] Pulse Oximetry Oxygen Delivery Method Oxygen Flow Rate Fraction of Inspired Oxygen Sepsis Recent Fever Within 48 Hours Sepsis New/Unexplained Change in Mental Status Sepsis Action Taken by Nursing End-Tidal CO2 Oxygen Flow Rate - Titration Pulse Oximetry Post Tiitration 03/05/24 18:18 03/05/24 18:21 03/05/24 18:33 Temperature Temperature Source Pulse Rate 91 H 94 H 93 H Pulse Rate from SpO2 Sensor 91 H 93 H 93 H Pulse Rhythm Pulse Strength Respiratory Rate 26 H 21 Respiratory Depth Blood Pressure Blood Pressure [Left Arm] Blood Pressure Mean Blood Pressure Mean [Left Arm] Pulse Oximetry 96 95 96 Oxygen Delivery Method Oxygen Flow Rate Fraction of Inspired Oxygen Sepsis Recent Fever Within 48 Hours Sepsis New/Unexplained Change in Mental Status Sepsis Action Taken by Nursing End-Tidal CO2 Oxygen Flow Rate - Titration Pulse Oximetry Post Tiitration 03/05/24 18:42 03/05/24 18:48 03/05/24 19:02 Temperature Temperature Source Pulse Rate 92 H 89 90 Pulse Rate from SpO2 Sensor 93 H 89 Pulse Rhythm Pulse Strength Respiratory Rate 22 22 22 Respiratory Depth Blood Pressure Blood Pressure [Left Arm] Blood Pressure Mean Blood Pressure Mean [Left Arm] Pulse Oximetry 92 95 94 Oxygen Delivery Method Oxygen Flow Rate Fraction of Inspired Oxygen 100 Sepsis Recent Fever Within 48 Hours Sepsis New/Unexplained Change in Mental Status Sepsis Action Taken by Nursing End-Tidal CO2 71 73 71 Oxygen Flow Rate - Titration Pulse Oximetry Post Tiitration 03/05/24 19:06 03/05/24 19:24 03/05/24 19:45 Temperature Temperature Source Pulse Rate 92 H 94 H Pulse Rate from SpO2 Sensor 94 H 94 H Pulse Rhythm Pulse Strength Respiratory Rate 22 22 Respiratory Depth Blood Pressure 111/92 70/45 L Blood Pressure [Left Arm] Blood Pressure Mean 98 61 Blood Pressure Mean [Left Arm] Pulse Oximetry 92 97 Oxygen Delivery Method Oxygen Flow Rate Fraction of Inspired Oxygen Sepsis Recent Fever Within 48 Hours Sepsis New/Unexplained Change in Mental Status Sepsis Action Taken by Nursing End-Tidal CO2 75 71 Oxygen Flow Rate - Titration Pulse Oximetry Post Tiitration 03/05/24 19:54 03/05/24 19:55 03/05/24 20:00 Temperature Temperature Source Pulse Rate 91 H Pulse Rate from SpO2 Sensor 90 Pulse Rhythm Pulse Strength Respiratory Rate 22 Respiratory Depth Blood Pressure 98/60 L 114/69 119/90 Blood Pressure [Left Arm] Blood Pressure Mean 72 92 113 Blood Pressure Mean [Left Arm] Pulse Oximetry 92 Oxygen Delivery Method Oxygen Flow Rate Fraction of Inspired Oxygen Sepsis Recent Fever Within 48 Hours Sepsis New/Unexplained Change in Mental Status Sepsis Action Taken by Nursing End-Tidal CO2 69 Oxygen Flow Rate - Titration Pulse Oximetry Post Tiitration 03/05/24 20:06 03/05/24 20:11 03/05/24 20:18 Temperature Temperature Source Pulse Rate 89 Pulse Rate from SpO2 Sensor 89 Pulse Rhythm Pulse Strength Respiratory Rate 22 Respiratory Depth Blood Pressure 138/84 126/96 132/94 Blood Pressure [Left Arm] Blood Pressure Mean 97 102 106 Blood Pressure Mean [Left Arm] Pulse Oximetry 93 Oxygen Delivery Method Oxygen Flow Rate Fraction of Inspired Oxygen Sepsis Recent Fever Within 48 Hours Sepsis New/Unexplained Change in Mental Status Sepsis Action Taken by Nursing End-Tidal CO2 70 Oxygen Flow Rate - Titration Pulse Oximetry Post Tiitration 03/05/24 20:21 03/05/24 20:24 03/05/24 20:39 Temperature Temperature Source Pulse Rate 90 91 H 90 Pulse Rate from SpO2 Sensor 90 91 H 90 Pulse Rhythm Pulse Strength Respiratory Rate 22 22 22 Respiratory Depth Blood Pressure 122/92 118/93 126/86 Blood Pressure [Left Arm] Blood Pressure Mean 102 101 99 Blood Pressure Mean [Left Arm] Pulse Oximetry 94 93 94 Oxygen Delivery Method Oxygen Flow Rate Fraction of Inspired Oxygen Sepsis Recent Fever Within 48 Hours Sepsis New/Unexplained Change in Mental Status Sepsis Action Taken by Nursing End-Tidal CO2 69 70 69 Oxygen Flow Rate - Titration Pulse Oximetry Post Tiitration 03/05/24 20:45 03/05/24 20:45 03/05/24 21:15 Temperature Temperature Source Pulse Rate 90 90 Pulse Rate from SpO2 Sensor 89 88 Pulse Rhythm Pulse Strength Respiratory Rate 22 22 Respiratory Depth Blood Pressure 109/87 109/87 111/78 Blood Pressure [Left Arm] Blood Pressure Mean 94 101 89 Blood Pressure Mean [Left Arm] Pulse Oximetry 92 92 Oxygen Delivery Method Oxygen Flow Rate Fraction of Inspired Oxygen Sepsis Recent Fever Within 48 Hours Sepsis New/Unexplained Change in Mental Status Sepsis Action Taken by Nursing End-Tidal CO2 69 67 Oxygen Flow Rate - Titration Pulse Oximetry Post Tiitration Physical Exam GENERAL: Ill-appearing. HENT: Exam performed. - Head: Normocephalic and atraumatic. NECK: Normal range of motion. Neck supple. No JVD present. CV: Normal rate, regular rhythm, normal heart sounds and intact distal pulses. There is no peripheral edema. Palpable radial pulses bue. PULM/CHEST: Diminished breath sounds bilaterally. ABD: The abdomen is soft. Morbidly obese. NEURO: He is not oriented to person, place, and time. Motor and sensation grossly intact SKIN: Psoriasis. Procedures Intubation Time out performed: Yes sedative: Etomidate Mg Given: 30 paralytic: Succinylcholine Mg Given: 400 Laryngoscope: other (glidescope) ET Tube Size: 7.5 ET Tube Uncuffed: Yes Tube Placement Confirmation: visualized tube passing through cords, equal breath sounds bilaterally and no breath sounds over epigastrium Patient Tolerated Procedure: well and no complications Intubation Complications: none Course Course 1727: The patient was evaluated in room C9. A complete history and physical exam was performed Cardiac monitoring: An order was placed for continuous cardiac monitoring. The monitor shows a rate of 90 with sinus rhythm interpreted by me Patient hypoxic on room air. Patient on nonrebreather mask. Patient refusing BiPAP. Will attempt high flow nasal cannula. 1800: ABG shows a pH of 7.24 with a pCO2 of 78 bicarb of 33 oxygen saturation 88%. Patient not tolerating high flow nasal cannula. Patient ripping off saying cannot take it. Patient, more confused. at bedside stating that the patient has not been eating or drinking well for the last day. Will give the patient a small dose of Ativan to see if he can tolerate high flow nasal cannula. 1825: CBC shows white blood cell count of 13.8. Chest x-ray shows no fluid overload pneumonia. Lactate 2.1. Patient becoming more confused, agitated and having more labored breathing. Will intubate the patient to protect his airway as he is not tolerating high flow nasal cannula and will not tolerate BiPAP. 1845: Patient intubated without difficulty. See procedure note. Will attempt to take the patient to CT. 1858: Patient intubated. Chest x-ray shows the ET tube is in place 4 cm above the nakita. ET tube was advanced 1 cm. Received a call from [employer] who states she spoke with her day haul youth supervisor Brenden and they stated that the CT scanner at this facility cannot tolerate the patient's weight as he is over 600 pounds. Discussed with the on-call hospitalist team for [facility] Dr. Clark and ICU PHARMACY BENEFITS COORDINATOR Abbe Vega and we all thought would be best to obtain imaging on the patient to see if there is any underlying cause of his altered mental status could be detected via imaging. Discussed with the and we will attempt to call other facilities to see if they have a CT scanner that can support the patient's weight and to see if the patient can be transferred. 1947: Spoke with Dr. Antonio ICU who does recommend transfer send the patient needs a CT of the head and possibly CTA of the chest and he recommends transfer to facility that can perform these tests. Charge nurse and community center worker spoke to transfer center [facility] who stated they cannot support the patient's girth which is 90 inches (228 cm). Will attempt to call [facility] and other facilities. 1958: [facility] states that they cannot accommodate the patient's weight and girth either. states that the patient has had scans done at [facility], will attempt to call them. 2016: [facility] states they have no scanners in their system that can accommodate the patient's weight and girth. Will attempt to contact [facility]. 2036: Patient stable on ventilator. [facility] states they do not have any scanners in their system that can tolerate the patient's weight and girth either. At this time we have made call to 4 referring centers and none of the centers stated that they could accommodate the patient's weight and girth to obtain a scan on the patient. Discussed the case with Dr. Antonio. We both agree this is a very difficult situation but given the lack of options at this time Dr. Perez was gracious to accept the patient to the ICU. Will attempt to maximize the patient's care there. Discussed case with Dr. Clark [facility] hospitalist will evaluate the patient. Dr. Clark I had a lengthy discussion with the explaining the limitations on testing availability secondary to patient's body habitus. We explained to her that there is possibility of intracerebral pathology but we cannot determine this without obtaining a CT of the head. We also explained the possibility of a blood clot in his lungs but again explained that we cannot definitively rule that out without performing imaging. She states she understands and is thankful for us admitting the patient here and trying to improve the patient's health conditions. Administered Medications Fentanyl Citrate (Fentanyl Bolus From Bag) 50 mcg IV Q60M PRN PRN Reason: Pain or Agitation Stop: 03/19/24 19:03 Last Admin: 03/05/24 21:01 Dose: 25 mcg Documented By: STEVEN Co-signed By: LEANN Admin: 03/05/24 19:14 Dose: 50 mcg Documented By: STEVEN Co-signed By: LEANN Fentanyl Citrate (Fentanyl Citrate) 2,500 mcg in 250 mls @ 5 mls/hr IV .Q50H KIM; Protocol Stop: 03/19/24 19:14 Last Titration: 03/05/24 21:01 Dose: 50 mcg/hr, 5 mls/hr Documented By: STEVEN Co-signed By: LEANN Admin: 03/05/24 19:12 Dose: 25 mcg/hr, 2.5 mls/hr Documented By: STEVEN Co-signed By: LEANN Ceftriaxone Sodium (Rocephin) 2,000 mg in 50 mls @ 100 mls/hr IV Q24H KIM Stop: 03/07/24 22:59 Last Admin: 03/05/24 23:23 Dose: 100 mls/hr Documented By: YOSELIN Midazolam HCl (Versed) 125 mg in 250 mls @ 4 mls/hr IV .H57P42G KIM; Protocol Stop: 04/04/24 22:44 Last Admin: 03/05/24 22:47 Dose: 2 mg/hr, 4 mls/hr Documented By: YOSELIN Co-signed By: ANA Nystatin (Nystatin Powder 15gm Btl) 1 appln EXT BID KIM Stop: 04/04/24 23:14 Last Admin: 03/05/24 23:25 Dose: 1 appln Documented By: TMG Discontinued Medications Propofol (Diprivan) 1,000 mg in 100 mls @ 42.12 mls/hr IV .Q2H23M KIM; Protocol Stop: 03/08/24 19:14 Last Admin: 03/05/24 20:34 Dose: 25 mcg/kg/min, 42.1 mls/hr Documented By: STEVEN Co-signed By: IDD Titration: 03/05/24 20:34 Dose: Infused Documented By: STEVEN Co-signed By: IDD Titration: 03/05/24 19:49 Dose: 25 mcg/kg/min, 42.1 mls/hr Documented By: Titration: 03/05/24 19:34 Dose: 35 mcg/kg/min, 59 mls/hr Documented By: Titration: 03/05/24 19:07 Dose: 30 mcg/kg/min, 50.5 mls/hr Documented By: Admin: 03/05/24 19:07 Dose: 20 mcg/kg/min, 33.7 mls/hr Documented By: KENDRA Co-signed By: MARISELA Sodium Chloride (Nss) 500 mls @ 999 mls/hr IV .Q31M ONE Stop: 03/05/24 20:16 Last Admin: 03/05/24 20:48 Dose: Not Given Documented By: STEVEN Calcium Gluconate () 1,000 mg in 60 mls @ 240 mls/hr IV NOW STA Stop: 03/05/24 22:45 Last Admin: 03/05/24 22:48 Dose: 240 mls/hr Documented By: YOSELIN Acetylcysteine 15,000 mg/ (Dextrose) 275 mls @ 200 mls/hr IV ONCE ONE; Protocol Stop: 03/05/24 23:53 Last Admin: 03/05/24 22:55 Dose: 200 mls/hr Documented By: YOSELIN Daptomycin 975 mg/ Syringe 19.5 mls @ 9.75 mls/min IV ONE ONE; Protocol Stop: 03/05/24 23:16 Last Admin: 03/05/24 23:25 Dose: 9.75 mls/min Documented By: YOSELIN Lorazepam (Lorazepam 1 Mg/1 Ml Syr Ed Inj Use) 1 mg IV ONE STA Stop: 03/05/24 18:03 Last Admin: 03/05/24 18:06 Dose: 1 mg Documented By: SHREE Miscellaneous (Stat Iv Infusion Titration Per Protocol) 1 each N/A NOW STA Stop: 03/05/24 19:05 Last Admin: 03/05/24 20:49 Dose: Not Given Documented By: STEVEN Propofol (Propofol Iv Emulsion 10 Mg/Ml 100 Ml Vial) Confirm Administered Dose 1,000 mg IV .STK-MED ONE Stop: 03/05/24 18:41 Last Admin: 03/05/24 19:18 Dose: Not Given Documented By: STEVEN Propofol (Propofol Bolus From Bag) 20 mg IV Q5M PRN PRN Reason: Sedation Stop: 03/08/24 19:03 Last Admin: 03/05/24 19:34 Dose: 20 mg Documented By: STEVEN Co-signed By: LEANN Admin: 03/05/24 19:17 Dose: 20 mg Documented By: STEVEN Co-signed By: RE Admin: 03/05/24 19:10 Dose: 20 mg Documented By: STEVEN Co-signed By: LEANN Critical Care Time Critical Care Time: Yes Total Critical Care Time: 91 I have personally spent greater than 91 minutes of critical care time in the direct management of this patient. This includes bedside care, interpretation of diagnostic studies, and testing, discussion with consultants, patient, and family members, and other required patient management activities. This 91 minutes is in excess of all separately billable procedures. Medical Decision Making Laboratory Data Attestation: I reviewed the patient's lab results. 03/05/24 17:45 03/05/24 19:16 Lab Results 03/05/24 03/05/24 03/05/24 Range/Units 17:44 17:45 17:49 WBC 13.83 H (4.8-10.8) K/ul RBC 6.11 H (4.70-6.10) M/uL Hgb 14.7 (14.0-18.0) g/dl POC Hgb 17.0 (14.0-18.0) g/dl Hct 50.0 (42.0-52.0) % POC Hct 50 (42-52) % MCV 81.8 (80.0-100.0) fL MCH 24.1 L (25.0-34.0) pg MCHC 29.4 L (32.0-36.0) g/dL RDW Std Deviation 52.6 H (36.4-46.3) fL RDW Coeff of Nelson 19.1 H (11.5-14.5) % Plt Count 344 (130-400) K/uL MPV 9.2 L (9.4-12.4) fL Immature Gran % (Auto) 1.2 % Neut % (Auto) 74.7 % Lymph % (Auto) 13.3 % [place] % (Auto) 10.1 % Eos % (Auto) 0.1 % Baso % (Auto) 0.6 % Neut # (Auto) 10.33 H (1.40-6.50) K/uL Lymph # (Auto) 1.84 (1.20-3.40) K/uL [place] # (Auto) 1.40 H (0.11-0.59) K/uL Eos # (Auto) 0.01 (0.00-0.50) K/uL Baso # (Auto) 0.08 (0.00-0.20) K/uL Immature Gran # (Auto) 0.17 (0.01-0.20) K/uL Absolute Nucleated RBC 0.02 (0.00-0.12) K/uL Nucleated RBC % (auto) 0.1 % PT 15.5 H (9.0-12.0) Seconds INR 1.5 H (0.9-1.1) APTT 28 (21-31) Seconds PTT Ratio 1.0 D-Dimer (0-500) ug/L FEU POC pH 7.24 L (7.35-7.45) POC pCO2 78 H (35-46) mmHg POC pO2 67 L (80-95) mmHg POC HCO3 33 H (19-24) elvira/L POC Total CO2 36 H (24-31) mmol/L POC Base Excess 6.0 H (-9-1.8) elvira/L ABG pH Cancelled ABG pCO2 Cancelled ABG pO2 Cancelled ABG HCO3 Cancelled POC ABG O2 Sat 88.0 L (90-95) % ABG O2 Saturation Cancelled ABG Base Excess Cancelled Ibrahima Test Cancelled Barometric Pressure Cancelled Oxygen Given Cancelled POC Sodium 132 L (135-144) mmol/L Sodium Cancelled POC Potassium 5.0 (3.3-5.0) mmol/L Potassium Cancelled POC Chloride (101-112) mmol/L Chloride Cancelled Carbon Dioxide Cancelled Anion Gap Cancelled POC Anion Gap (16-25) mmol/L POC BUN (7-18) mg/dl BUN Cancelled Creatinine Cancelled POC Creatinine (0.6-1.3) mg/dl Est Cr Clr Drug Dosing Cancelled Est GFR ( Amer) Cancelled Est GFR (Non-Af Amer) Cancelled BUN/Creatinine Ratio Cancelled Glucose Cancelled POC Glucose (other) (70-99) mg/dl Lactate 2.1 H* (0.4-2.0) mmol/L Calcium Cancelled POC Ioniz Calcium Augustus (1.12-1.32) mmol/l Magnesium Cancelled Total Bilirubin Cancelled Direct Bilirubin Cancelled AST Cancelled ALT Cancelled Alkaline Phosphatase Cancelled Ammonia TNP Troponin I High Sens Cancelled B-Natriuretic Peptide (0-100) pg/ml Total Protein Cancelled Albumin Cancelled Lipase Cancelled Urine Color Urine Appearance (Clear) Urine pH (4.5-7.5) Ur Specific [place] (1.000-1.030) Urine Protein (Negative) Urine Glucose (UA) (Negative) Urine Ketones (Negative) Urine Blood (Negative) Urine Nitrite (Negative) Urine Bilirubin (Negative) Urine Urobilinogen (Negative) Ur Leukocyte Esterase (Negative) Urine WBC (Auto) (0-5) /hpf Urine RBC (Auto) (0-2) /hpf U Hyaline Cast (Auto) (0-2) /lpf U Epithel Cells (Auto) (0-2) /hpf Urine Bacteria (Auto) (None Seen) Ethyl Alcohol mg/dL (<10.0) mg/dl Adenovirus (PCR) (NotDetected) B. pertussis DNA (PCR) (NotDetected) B.parapertussis DNA PCR (NotDetected) C. pneumoniae DNA (PCR) (NotDetected) Coronavirus OC43 (PCR) (NotDetected) Coronavirus HKU1 (PCR) (NotDetected) Coronavirus 229E (PCR) (NotDetected) SARS-CoV-2 (PCR) (NotDetected) Coronavirus NL63 (PCR) (NotDetected) Human Metapneumovir PCR (NotDetected) Influenza Type A (PCR) (NotDetected) Influenza Type B (PCR) (NotDetected) M. pneumoniae (PCR) (NotDetected) Parainfluenza 1 (PCR) (NotDetected) Parainfluenza 2 (PCR) (NotDetected) Parainfluenza 3 (PCR) (NotDetected) Parainfluenza 4 (PCR) (NotDetected) RSV (PCR) (NotDetected) Entero/Rhino (PCR) (NotDetected) 03/05/24 03/05/24 03/05/24 Range/Units 17:52 17:57 18:09 WBC (4.8-10.8) K/ul RBC (4.70-6.10) M/uL Hgb (14.0-18.0) g/dl POC Hgb 17.7 (14.0-18.0) g/dl Hct (42.0-52.0) % POC Hct 52 (42-52) % MCV (80.0-100.0) fL MCH (25.0-34.0) pg MCHC (32.0-36.0) g/dL RDW Std Deviation (36.4-46.3) fL RDW Coeff of Nelson (11.5-14.5) % Plt Count (130-400) K/uL MPV (9.4-12.4) fL Immature Gran % (Auto) % Neut % (Auto) % Lymph % (Auto) % [place] % (Auto) % Eos % (Auto) % Baso % (Auto) % Neut # (Auto) (1.40-6.50) K/uL Lymph # (Auto) (1.20-3.40) K/uL [place] # (Auto) (0.11-0.59) K/uL Eos # (Auto) (0.00-0.50) K/uL Baso # (Auto) (0.00-0.20) K/uL Immature Gran # (Auto) (0.01-0.20) K/uL Absolute Nucleated RBC (0.00-0.12) K/uL Nucleated RBC % (auto) % PT (9.0-12.0) Seconds INR (0.9-1.1) APTT (21-31) Seconds PTT Ratio D-Dimer (0-500) ug/L FEU POC pH (7.35-7.45) POC pCO2 (35-46) mmHg POC pO2 (80-95) mmHg POC HCO3 (19-24) elvira/L POC Total CO2 32 H (24-31) mmol/L POC Base Excess (-9-1.8) elvira/L ABG pH ABG pCO2 ABG pO2 ABG HCO3 POC ABG O2 Sat (90-95) % ABG O2 Saturation ABG Base Excess Ibrahima Test Barometric Pressure Oxygen Given POC Sodium 132 L (135-144) mmol/L Sodium POC Potassium 5.9 H (3.3-5.0) mmol/L Potassium POC Chloride 93 L (101-112) mmol/L Chloride Carbon Dioxide Anion Gap POC Anion Gap 14.0 L (16-25) mmol/L POC BUN 47 H (7-18) mg/dl BUN Creatinine POC Creatinine 1.8 H (0.6-1.3) mg/dl Est Cr Clr Drug Dosing Est GFR ( Amer) Est GFR (Non-Af Amer) BUN/Creatinine Ratio Glucose POC Glucose (other) 143 H (70-99) mg/dl Lactate (0.4-2.0) mmol/L Calcium POC Ioniz Calcium Augustus 1.02 L (1.12-1.32) mmol/l Magnesium Total Bilirubin Direct Bilirubin AST ALT Alkaline Phosphatase Ammonia Troponin I High Sens B-Natriuretic Peptide (0-100) pg/ml Total Protein Albumin Lipase Urine Color Urine Appearance (Clear) Urine pH (4.5-7.5) Ur Specific [place] (1.000-1.030) Urine Protein (Negative) Urine Glucose (UA) (Negative) Urine Ketones (Negative) Urine Blood (Negative) Urine Nitrite (Negative) Urine Bilirubin (Negative) Urine Urobilinogen (Negative) Ur Leukocyte Esterase (Negative) Urine WBC (Auto) (0-5) /hpf Urine RBC (Auto) (0-2) /hpf U Hyaline Cast (Auto) (0-2) /lpf U Epithel Cells (Auto) (0-2) /hpf Urine Bacteria (Auto) (None Seen) Ethyl Alcohol mg/dL < 10.0 (<10.0) mg/dl Adenovirus (PCR) Not Detected (NotDetected) B. pertussis DNA (PCR) Not Detected (NotDetected) B.parapertussis DNA PCR Not Detected (NotDetected) C. pneumoniae DNA (PCR) Not Detected (NotDetected) Coronavirus OC43 (PCR) Not Detected (NotDetected) Coronavirus HKU1 (PCR) Not Detected (NotDetected) Coronavirus 229E (PCR) Not Detected (NotDetected) SARS-CoV-2 (PCR) Not Detected (NotDetected) Coronavirus NL63 (PCR) Not Detected (NotDetected) Human Metapneumovir PCR Not Detected (NotDetected) Influenza Type A (PCR) Not Detected (NotDetected) Influenza Type B (PCR) Not Detected (NotDetected) M. pneumoniae (PCR) Not Detected (NotDetected) Parainfluenza 1 (PCR) Not Detected (NotDetected) Parainfluenza 2 (PCR) Not Detected (NotDetected) Parainfluenza 3 (PCR) Not Detected (NotDetected) Parainfluenza 4 (PCR) Not Detected (NotDetected) RSV (PCR) Not Detected (NotDetected) Entero/Rhino (PCR) Not Detected (NotDetected) 03/05/24 03/05/24 03/05/24 Range/Units 19:16 19:38 19:40 WBC (4.8-10.8) K/ul RBC (4.70-6.10) M/uL Hgb (14.0-18.0) g/dl POC Hgb (14.0-18.0) g/dl Hct (42.0-52.0) % POC Hct (42-52) % MCV (80.0-100.0) fL MCH (25.0-34.0) pg MCHC (32.0-36.0) g/dL RDW Std Deviation (36.4-46.3) fL RDW Coeff of Nelson (11.5-14.5) % Plt Count (130-400) K/uL MPV (9.4-12.4) fL Immature Gran % (Auto) % Neut % (Auto) % Lymph % (Auto) % [place] % (Auto) % Eos % (Auto) % Baso % (Auto) % Neut # (Auto) (1.40-6.50) K/uL Lymph # (Auto) (1.20-3.40) K/uL [place] # (Auto) (0.11-0.59) K/uL Eos # (Auto) (0.00-0.50) K/uL Baso # (Auto) (0.00-0.20) K/uL Immature Gran # (Auto) (0.01-0.20) K/uL Absolute Nucleated RBC (0.00-0.12) K/uL Nucleated RBC % (auto) % PT (9.0-12.0) Seconds INR (0.9-1.1) APTT (21-31) Seconds PTT Ratio D-Dimer 3910 H* (0-500) ug/L FEU POC pH (7.35-7.45) POC pCO2 (35-46) mmHg POC pO2 (80-95) mmHg POC HCO3 (19-24) elvira/L POC Total CO2 (24-31) mmol/L POC Base Excess (-9-1.8) elvira/L ABG pH 7.25 L ABG pCO2 76 H ABG pO2 88 ABG HCO3 33 H POC ABG O2 Sat (90-95) % ABG O2 Saturation 95.9 H ABG Base Excess 3.6 H Ibrahima Test Pos Barometric Pressure Oxygen Given 100% POC Sodium (135-144) mmol/L Sodium 133 L POC Potassium (3.3-5.0) mmol/L Potassium 5.9 H POC Chloride (101-112) mmol/L Chloride 94 L Carbon Dioxide 32 Anion Gap 7 POC Anion Gap (16-25) mmol/L POC BUN (7-18) mg/dl BUN 39 H Creatinine 1.65 H POC Creatinine (0.6-1.3) mg/dl Est Cr Clr Drug Dosing 119.7 Est GFR ( Amer) 54.5 Est GFR (Non-Af Amer) 47.0 BUN/Creatinine Ratio 23.6 H Glucose 116 H POC Glucose (other) (70-99) mg/dl Lactate 1.4 (0.4-2.0) mmol/L Calcium 8.3 L POC Ioniz Calcium Augustus (1.12-1.32) mmol/l Magnesium 2.4 Total Bilirubin 1.6 H Direct Bilirubin 0.4 H AST 794 H ALT 622 H Alkaline Phosphatase 136 H Ammonia 84.0 H Troponin I High Sens 231.7 H* B-Natriuretic Peptide 579 H (0-100) pg/ml Total Protein 6.9 Albumin 3.7 Lipase 24 Urine Color Urine Appearance (Clear) Urine pH (4.5-7.5) Ur Specific [place] (1.000-1.030) Urine Protein (Negative) Urine Glucose (UA) (Negative) Urine Ketones (Negative) Urine Blood (Negative) Urine Nitrite (Negative) Urine Bilirubin (Negative) Urine Urobilinogen (Negative) Ur Leukocyte Esterase (Negative) Urine WBC (Auto) (0-5) /hpf Urine RBC (Auto) (0-2) /hpf U Hyaline Cast (Auto) (0-2) /lpf U Epithel Cells (Auto) (0-2) /hpf Urine Bacteria (Auto) (None Seen) Ethyl Alcohol mg/dL (<10.0) mg/dl Adenovirus (PCR) (NotDetected) B. pertussis DNA (PCR) (NotDetected) B.parapertussis DNA PCR (NotDetected) C. pneumoniae DNA (PCR) (NotDetected) Coronavirus OC43 (PCR) (NotDetected) Coronavirus HKU1 (PCR) (NotDetected) Coronavirus 229E (PCR) (NotDetected) SARS-CoV-2 (PCR) (NotDetected) Coronavirus NL63 (PCR) (NotDetected) Human Metapneumovir PCR (NotDetected) Influenza Type A (PCR) (NotDetected) Influenza Type B (PCR) (NotDetected) M. pneumoniae (PCR) (NotDetected) Parainfluenza 1 (PCR) (NotDetected) Parainfluenza 2 (PCR) (NotDetected) Parainfluenza 3 (PCR) (NotDetected) Parainfluenza 4 (PCR) (NotDetected) RSV (PCR) (NotDetected) Entero/Rhino (PCR) (NotDetected) 03/05/24 Range/Units 20:06 WBC (4.8-10.8) K/ul RBC (4.70-6.10) M/uL Hgb (14.0-18.0) g/dl POC Hgb (14.0-18.0) g/dl Hct (42.0-52.0) % POC Hct (42-52) % MCV (80.0-100.0) fL MCH (25.0-34.0) pg MCHC (32.0-36.0) g/dL RDW Std Deviation (36.4-46.3) fL RDW Coeff of Nelson (11.5-14.5) % Plt Count (130-400) K/uL MPV (9.4-12.4) fL Immature Gran % (Auto) % Neut % (Auto) % Lymph % (Auto) % [place] % (Auto) % Eos % (Auto) % Baso % (Auto) % Neut # (Auto) (1.40-6.50) K/uL Lymph # (Auto) (1.20-3.40) K/uL [place] # (Auto) (0.11-0.59) K/uL Eos # (Auto) (0.00-0.50) K/uL Baso # (Auto) (0.00-0.20) K/uL Immature Gran # (Auto) (0.01-0.20) K/uL Absolute Nucleated RBC (0.00-0.12) K/uL Nucleated RBC % (auto) % PT (9.0-12.0) Seconds INR (0.9-1.1) APTT (21-31) Seconds PTT Ratio D-Dimer (0-500) ug/L FEU POC pH (7.35-7.45) POC pCO2 (35-46) mmHg POC pO2 (80-95) mmHg POC HCO3 (19-24) elvira/L POC Total CO2 (24-31) mmol/L POC Base Excess (-9-1.8) elvira/L ABG pH ABG pCO2 ABG pO2 ABG HCO3 POC ABG O2 Sat (90-95) % ABG O2 Saturation ABG Base Excess Ibrahima Test Barometric Pressure Oxygen Given POC Sodium (135-144) mmol/L Sodium POC Potassium (3.3-5.0) mmol/L Potassium POC Chloride (101-112) mmol/L Chloride Carbon Dioxide Anion Gap POC Anion Gap (16-25) mmol/L POC BUN (7-18) mg/dl BUN Creatinine POC Creatinine (0.6-1.3) mg/dl Est Cr Clr Drug Dosing Est GFR ( Amer) Est GFR (Non-Af Amer) BUN/Creatinine Ratio Glucose POC Glucose (other) (70-99) mg/dl Lactate (0.4-2.0) mmol/L Calcium POC Ioniz Calcium Augustus (1.12-1.32) mmol/l Magnesium Total Bilirubin Direct Bilirubin AST ALT Alkaline Phosphatase Ammonia Troponin I High Sens B-Natriuretic Peptide (0-100) pg/ml Total Protein Albumin Lipase Urine Color Dark Yellow Urine Appearance Cloudy A (Clear) Urine pH 5.0 (4.5-7.5) Ur Specific [place] 1.021 (1.000-1.030) Urine Protein 2+ H (Negative) Urine Glucose (UA) Negative (Negative) Urine Ketones Negative (Negative) Urine Blood Negative (Negative) Urine Nitrite Negative (Negative) Urine Bilirubin 1+ H (Negative) Urine Urobilinogen Negative (Negative) Ur Leukocyte Esterase Negative (Negative) Urine WBC (Auto) 0-5 (0-5) /hpf Urine RBC (Auto) 6-10 H (0-2) /hpf U Hyaline Cast (Auto) >20 H (0-2) /lpf U Epithel Cells (Auto) 6-10 H (0-2) /hpf Urine Bacteria (Auto) None Seen (None Seen) Ethyl Alcohol mg/dL (<10.0) mg/dl Adenovirus (PCR) (NotDetected) B. pertussis DNA (PCR) (NotDetected) B.parapertussis DNA PCR (NotDetected) C. pneumoniae DNA (PCR) (NotDetected) Coronavirus OC43 (PCR) (NotDetected) Coronavirus HKU1 (PCR) (NotDetected) Coronavirus 229E (PCR) (NotDetected) SARS-CoV-2 (PCR) (NotDetected) Coronavirus NL63 (PCR) (NotDetected) Human Metapneumovir PCR (NotDetected) Influenza Type A (PCR) (NotDetected) Influenza Type B (PCR) (NotDetected) M. pneumoniae (PCR) (NotDetected) Parainfluenza 1 (PCR) (NotDetected) Parainfluenza 2 (PCR) (NotDetected) Parainfluenza 3 (PCR) (NotDetected) Parainfluenza 4 (PCR) (NotDetected) RSV (PCR) (NotDetected) Entero/Rhino (PCR) (NotDetected) Imaging Data Attestation: I personally reviewed and interpreted this imaging study as follows: My Impression: Chest x-ray #1: No acute infiltrate pneumothorax cardiomegaly or cephalization Chest x-ray #2: ET tube in place approximately 4 cm above the nakita. Radiologist's Impression: Chest X-Ray 03/05/24 17:38 XR chest 1V portable HISTORY: 53 years-old Male ams acutely altered mental status COMPARISON: 08/24/2023 TECHNIQUE: AP view of the chest FINDINGS: Cardiac silhouette is enlarged. Mild bibasilar densities suggest atelectasis. No pneumothorax, large pleural effusion or overt pulmonary edema. IMPRESSION: Cardiomegaly without acute process. ACT 112: Negative or not required by law. The above report was generated using voice recognition software. It may contain grammatical, syntax or spelling errors. Electronically signed by: Filippo Torres M.D. 03/05/2024 5:50 PM Chest X-Ray 03/05/24 18:38 XR chest 1V portable HISTORY: 53 years-old Male ett placement acute respiratory failure COMPARISON: Chest radiograph of same day at 5:44 PM TECHNIQUE: AP view of the chest FINDINGS: Endotracheal tube overlies the midline, 4 cm superior to the nakita. Heart is enlarged. Pulmonary vascular congestion. No pneumothorax or pleural effusion. Bones appear intact. IMPRESSION: 1. Endotracheal tube overlies the midline, 4 cm superior to the nakita. 2. Cardiomegaly with pulmonary vascular congestion. ACT 112: Negative or not required by law. The above report was generated using voice recognition software. It may contain grammatical, syntax or spelling errors. Electronically signed by: Filippo Torres M.D. 03/05/2024 6:48 PM ECG Data Attestation: I personally reviewed and interpreted this ECG as follows: Additional Comments: Sinus rhythm with rate 96 [place] 214 QRS [address] elevation or ST depression. Right bundle branch block present. First-degree AV block present. Peaked T waves present. [facility] Narrative 1727: The patient was evaluated in room C9. A complete history and physical exam was performed Cardiac monitoring: An order was placed for continuous cardiac monitoring. The monitor shows a rate of 90 with sinus rhythm interpreted by me Patient hypoxic on room air. Patient on nonrebreather mask. Patient refusing BiPAP. Will attempt high flow nasal cannula. 1800: ABG shows a pH of 7.24 with a pCO2 of 78 bicarb of 33 oxygen saturation 88%. Patient not tolerating high flow nasal cannula. Patient ripping off saying cannot take it. Patient, more confused. at bedside stating that the patient has not been eating or drinking well for the last day. Will give the patient a small dose of Ativan to see if he can tolerate high flow nasal cannula. 1825: CBC shows white blood cell count of 13.8. Chest x-ray shows no fluid overload pneumonia. Lactate 2.1. Patient becoming more confused, agitated and having more labored breathing. Will intubate the patient to protect his airway as he is not tolerating high flow nasal cannula and will not tolerate BiPAP. 1845: Patient intubated without difficulty. See procedure note. Will attempt to take the patient to CT. 1858: Patient intubated. Chest x-ray shows the ET tube is in place 4 cm above the nakita. ET tube was advanced 1 cm. Received a call from [employer] who states she spoke with her day haul youth supervisor Brenden and they stated that the CT scanner at this facility cannot tolerate the patient's weight as he is over 600 pounds. Discussed with the on-call hospitalist team for [facility] Dr. Clark and ICU PHARMACY BENEFITS COORDINATOR Abbe Vega and we all thought would be best to obtain imaging on the patient to see if there is any underlying cause of his altered mental status could be detected via imaging. Discussed with the and we will attempt to call other facilities to see if they have a CT scanner that can support the patient's weight and to see if the patient can be transferred. 1947: Spoke with Dr. Antonio ICU who does recommend transfer send the patient needs a CT of the head and possibly CTA of the chest and he recommends transfer to facility that can perform these tests. Charge nurse and community center worker spoke to transfer center Jeff [facility]oehler who stated they cannot support the patient's girth which is 90 inches (228 cm). Will attempt to call [facility] and other facilities. 1958: [facility] states that they cannot accommodate the patient's weight and girth either. states that the patient has had scans done at [facility], will attempt to call them. 2015: [facility] states they have no scanners in their system that can accommodate the patient's weight and girth. Will attempt to contact [facility]. 2036: Patient stable on ventilator. [facility] states they do not have any scanners in their system that can tolerate the patient's weight and girth either. At this time we have made call to 4 referring centers and none of the centers stated that they could accommodate the patient's weight and girth to obtain a scan on the patient. Discussed the case with Dr. Antonio. We both agree this is a very difficult situation but given the lack of options at this time Dr. Perez was gracious to accept the patient to the ICU. Will attempt to maximize the patient's care there. Discussed case with Dr. Clark [facility] hospitalist will evaluate the patient. Dr. Clark I had a lengthy discussion with the explaining the limitations on testing availability secondary to patient's body habitus. We explained to her that there is possibility of intracerebral pathology but we cannot determine this without obtaining a CT of the head. We also explained the possibility of a blood clot in his lungs but again explained that we cannot definitively rule that out without performing imaging. She states she understands and is thankful for us admitting the patient here and trying to improve the patient's health conditions. Impression & Plan Acute hypercapnic respiratory failure, Morbid obesity, Elevated LFTs, EVA (acute kidney injury), Hypoxia, Hyperkalemia Discharge Plan Visit Data Chief Complaint: Shortness of Breath/Dyspnea Stated Complaint: WEAKNESS ED Provider: Stephen Espitia Discharge Problem: Acute hypercapnic respiratory failure, Morbid obesity, Elevated LFTs, EVA (acute kidney injury), Hypoxia, Hyperkalemia Patient Disposition: Admitted As Inpatient Discharge Instructions Interventions: ED Discharge Assessment Last Done: 03/05/24 22:13
[2024-03-05 18:41] LABS: INR 1.5 (0.9-1.1); Partial Thromboplastin Time 28 Seconds (21-31); Prothrombin Time 15.5 Seconds (9.0-12.0)
--- NOTE | 2024-03-05 18:50 | XRay Report ---
XR chest 1V portable HISTORY: 53 years-old Male ett placement acute respiratory failure COMPARISON: Chest radiograph of same day at 5:44 PM TECHNIQUE: AP view of the chest FINDINGS: Endotracheal tube overlies the midline, 4 cm superior to the nakita. Heart is enlarged. Pulmonary vas cular congestion. No pneumothorax or pleural effusion. Bones appear intact. IMPRESSION: 1. Endotracheal tube overlies the midline, 4 cm superior to the nakita. 2. Cardiomegaly with pulmonary vascular congestion. ACT 112: Negative or not required by law. The above report was generated using voice recognition software. It may contain grammatical, syntax o r spelling errors. Electronically signed by: Filippo Torres M.D. 03/05/2024 6:48 PM
[2024-03-05 18:58] LABS: Adenovirus PCR Not Detected (NotDetected); Bordetella parapertussis PCR Not Detected (NotDetected); Bordetella pertussis PCR Not Detected (NotDetected); Chlamydia pneumoniae PCR Not Detected (NotDetected); Coronavirus 229E PCR Not Detected (NotDetected); Coronavirus CoV-2 (COVID19)PCR Not Detected (NotDetected); Coronavirus HKU1 PCR Not Detected (NotDetected); Coronavirus NL63 PCR Not Detected (NotDetected); Coronavirus OC43PCR Not Detected (NotDetected); Human Metapneumovirus PCR Not Detected (NotDetected); Influenza A PCR Not Detected (NotDetected); Influenza B PCR Not Detected (NotDetected); Mycoplasma pneumoniae PCR Not Detected (NotDetected); Parainfluenza Virus 1 PCR Not Detected (NotDetected); Parainfluenza Virus 2 PCR Not Detected (NotDetected); Parainfluenza Virus 3 PCR Not Detected (NotDetected); Parainfluenza Virus 4 PCR Not Detected (NotDetected); Respiratory Syncytial VirusPCR Not Detected (NotDetected); Rhinovirus/Enterovirus PCR Not Detected (NotDetected)
[2024-03-05] MEDS: propofoL 1,000 MG/100 ML VIAL IV SCH (19:07)
[2024-03-05] MEDS: PROPOFOL BOLUS FROM BAG IV PRN (19:10)
[2024-03-05] MEDS: fentaNYL citrate 2,500 MCG/250 ML BAG IV SCH (19:12)
[2024-03-05] MEDS: fentaNYL BOLUS from BAG IV PRN (19:14)
[2024-03-05] MEDS: PROPOFOL IV EMULSION 10 MG/ML 100 ML VIAL IV ONE (19:18)
[2024-03-05 19:51] LABS: Base Excess ABG 3.6 mEq/L (-9-1.8); HCO3 ABG 33 mmol/L (19-24); Oxygen Saturation ABG 95.9 % (90-95); PCO2 ABG 76 mmHg (35-46); PO2 ABG 88 mmHg (80-95); pH ABG 7.25 (7.35-7.45)
[2024-03-05 19:57] LABS: Allen Test Pos (Pos)
[2024-03-05 20:29] LABS: Albumin Level 3.7 gm/dl (3.4-5.0); BUN Creatinine Ratio 23.6 (10-20); Bilirubin Direct 0.4 mg/dl (0-0.2); Bilirubin,Total 1.6 mg/dl (0.2-1.0); Calcium 8.3 mg/dl (8.6-10.3); Creatinine Clr Calc Pharmacy 119.7 ml/min; Est GFR (African American) 54.5 ml/min; Magnesium 2.4 mg/dl (1.7-2.4); Potassium 5.9 mmol/L (3.5-5.1)
[2024-03-05 20:30] LABS: Appearance Urine Cloudy (Clear); Bacteria Urine Automated None Seen (None Seen); Bilirubin Urine 1+ (Negative); Blood Urine Negative (Negative); Cast Urine Automated >20 /lpf (0-2); Color Urine Dark Yellow; Glucose Urine UA Negative (Negative); Ketones Urine Negative (Negative); Leukocyte Esterase Urine Negative (Negative); Nitrite Urine Negative (Negative); Protein Urine 2+ (Negative); Specific Gravity Urine 1.021 (1.000-1.030); Urobilinogen Urine Negative (Negative); WBC Urine Automated 0-5 /hpf (0-5)
[2024-03-05 20:43] LABS: D Dimer 3910 ug/L FEU (0-500)
[2024-03-05 20:46] LABS: Total Protein 6.9 gm/dl (6.0-8.3); Troponin I High Sensitivity 231.7 pg/ml (0-20)
[2024-03-05] MEDS: SODIUM CHLORIDE 0.9% 500 ML IV ONE (20:48)
[2024-03-05] MEDS: STAT IV Infusion **Titration per Protocol STA (20:49)
--- NOTE | 2024-03-05 21:18 | History & Physical Report ---
Date of Service March 05, 2024 Assessment & Plan (1) Hypoxia: (2) EVA (acute kidney injury): (3) Elevated LFTs: (4) Morbid obesity: Plan 53yo male with hypertension, pre-DM and obesity hypoventilation presenting from home with three days of generalized weakness, fatigue and decreased oral intake. Patient with acute hypoxic/hypercarbic respiratory failure on arrival (7.24/78/67), saturating 64% on room air. Patient unable to tolerate Oxymask or BiPAP and became increasingly agitated in the ER therefore was intubated. Neuro: Patient's reports generalized weakness over the last several days. No report of focal deficits. She did mention that his speech was somewhat un clear at times. No focal deficits noted prior to intubation. Patient is withdrawing all extremities from painful stimuli with equal strength at present. Would ideally obtain CT of the head given patient's encephalopathy and report of unclear speech. However, due to patient's body habitus and weight we are unable to place him in the CT scanner here at [facility]. Surrounding facilities were contacted and are not able to accommodate patient's size either. Patient with acute metabolic encephalopathy - likely multifactorial including EVA, elevated ammonia level as well as hypoxia/hypercarbia. Possible infection contributing as well given leukocytosis. -Continue Neuro checks -Fentanyl for pain control -Versed for sedation -Lactulose for elevated ammonia level - repeat LFTs/Ammonia in AM Cardiovascular: Patient HD stable at present. Elevated lactate upon arrival at 2.1 has improved to 1.4, possibly secondary to tachypnea and hypoxia present on arrival. Concern for possible infection as well. Elevated troponin. EKG with no acute ischemic changes -Check 2D echo -Trend troponin to peak Pulmonary: Patient with acute hypoxic/hypercarbic respiratory failure requiring emergent intubation in the ER. He is presently saturating well, still with hypercarbia - latest ABG 7.25/81/39. Rate increased to 26bpm, TV to 6mL/kg. Concern for DVT/PE - patient's size/immobility puts him at risk for DVT -Repeat ABG, continued ventilator management -Check bilateral LE doppler for DVT GI - patient with evidence of acute liver failure including eleation of AST, Tbili, Dbili and AP as well as INR of 1.5. Elevated ammonia level likely contributing to patient's metabolic encephalopathy as well. CT of the abdomen performed at our facility on 08/24/23 revealed hepatic steatosis. -Check ferritin level, acetaminophen level -Repeat Ammonia, LFTs and INR in AM -Check liver US with dopplers -NAC per protocol initiated by ICU Renal - patient with EVA. Cr of 1.65, last was 0.54 on 09/01/23. Perez in place with urine present in bag. Elevation of K=5.9, no EKG evidence of hyperkalemia -Maintain Perez catheter - strict I/O monitoring -Check Urine Na and Cr to calculate FeNA -Check Creatine Kinase -Repeat BMP in AM Heme - patient with mild leukocytosis, WBC=13.83 with neutrophil predominance, elevated neutrophil:lymphocyte. Normal H/H and Platelet counts. Elevated INR in setting of liver dysfunction. No active bleeding -Monitor H/H -Search for source of possible infection ID - patient afebrile. No obvious source of active infection. He does have multiple skin lesions but none appear to be actively infected at this time. -Empiric coverage with Ceftriaxone and Daptomycin -Check MRSA Nares -Follow cultures Endocrine - pre-DM. PNH=295 at present -MICU glycemic management protocol F/E/N - saline lock at present. Monitor electrolytes. NPO for now Ppx - SCDs Code - Full per discussion with - she will call patient's family and get definitive answer on Code Status Dispo - Admit to MICU History of Present Illness Chief Complaint: acute hypoxic respiratory failure, encephalopathy Primary Care Provider: NO PCP Landon Zamora is a 53yo male with history of HTN, Pre-DM and Psoriasis as well obesity hypoventilation syndrome presenting from home with three days of feeling unwell. Patient intubated and sedated at time of encounter. History obtained from at bedside. reports that patient was in his usual state of health on Tuesday03/02/24. He ate dinner late and went to sleep. When he woke on the morning of Tuesday03/03/24 he reported feeling tired. He did not eat breakfast, lunch or dinner. His reports that he was very sleepy throughout the day as well as general weakness and was somewhat confused and his speech was not clear. He was very thirsty and drank over 6 bottles of water but had minimal UOP. Patient did not feel well on Tuesday03/04/24 either and slept throughout the day. He did not eat anything. This morning 03/05/24 he woke up and did not feel well again and called EMS. Upon arrival the ER patient tachycardic at 103 bpm, tachypneic with RR of 39 and hypoxic at 64%. He was tried on Oxymask and BiPAP but became increasingly confused and agitated, removing the mask. He was emergently intubated in the ER for acute hypoxic hypercarbic respiratory failure. STAT CT of the head and CTA of the chest were ordered in the ER, however, patient unfortunately exceeds the weight limit for our CT scanner. Dr. Espitia contacted several facilities in attempt to find one that could accommodate the patient's weight and body habitus, however, no facilities have a scanner that is able to accommodate patient's size. ER Course: Ativan 1mg Intubation and ventilation Propofol gtt Fentanyl gtt Allergies Allergy/AdvReac Type Severity Reaction Status Date / Time No Known Allergies Allergy Unverified 03/05/24 19:32 Home Medications Medication Instructions Recorded Confirmed Type [id number] 250 2 - 4 tab PO Q8 PRN Pain 03/05/24 03/05/24 History mg-250 mg-65 mg tablet (Excedrin Extra Strength) celecoxib 100 mg capsule 100 mg PO BID PRN Pain 03/05/24 03/05/24 History metformin 1,000 mg tablet,extended 1,000 mg PO BID 03/05/24 03/05/24 History release 24hr (osmotic) triamterene 37.5 1 cap PO DAILY 03/05/24 03/05/24 History mg-hydrochlorothiazide 25 mg capsule Past Med/Surg History Problem List (Updated 03/06/24 @ 00:21 by Stephen Espitia MD) Hyperkalemia (Acute) EVA (acute kidney injury) (Acute) Elevated LFTs (Acute) Acute liver failure Morbid obesity (Acute) Encephalopathy Respiratory failure requiring intubation Obesity Sinus pause EMELY (obstructive sleep apnea) Acute hypercapnic respiratory failure (Acute) Sepsis (Acute) Leanne's gangrene (Acute) Hypoxia (Acute) SOB (shortness of breath) Medical History Prediabetes Candidiasis of mouth and esophagus AV block Benign essential hypertension Tinea cruris Psoriasis Pickwickian syndrome Cellulitis of leg, right Morbid obesity with BMI of 60.0-69.9, adult Surgical History History of appendectomy History of cholecystectomy Social History Smoking Status: Current every day smoker Tobacco Type: Cigarettes Cigarettes Per Day: pack per day; Second Hand Exposure: No; Do You Dip or Chew Tobacco: No; Hx Alcohol Use: No (quit 4 yrs ago) Hx Substance Use: No Preferred Language: Faroese Communication Ability: Effective Kennel Staff Member Required: Yes Beliefs That Will Affect Care: None Current Living Situation: Spouse Other Information That Helps Us Care for You: No Feels Safe at Home: Yes Safety Concerns: Feels Safe At This Time Assistive Devices: Cane Review of Systems Review of Systems: Unobtainable due to endotracheal tube Physical Exam Physical Exam: General: patient intubated and sedated, withdrawing 4 extremities from painful stimuli Skin: diffuse psoriatic plaques scattered on patient, no obvious secondary infection, intertriginous joe noted in groin folds, beneath pannus and beneath breasts, ulceration present on left great toe with granulation tissue, no drainage, shallow based ulceration on left heel HEENT: NC/AT, pupils small, reactive bilaterally, anicteric sclera, injected conjunctiva bilaterally, external ear normal to inspection and nontender, nares patent, moist mucus membranes, neck supple, trachea midline, no LAD, no thyromegaly, no JVD, ETT in place sz 7.5, NGT in place Heart: +S1/S2, regular, no m/r/g Lungs: equal air entry bilaterally, no rales/rhonchi/wheezes Abd: obese, +BS, soft, ND, no masses/organomegaly/ascites, Perez catheter in place with renato colored urine Ext: warm, no clubbing or cyanosis Neuro: intubated and sedated Results & Data Results & Data Vital Signs (Past 12 Hours) Vital Signs Temp Pulse Resp BP BP Pulse Ox O2 Del Method 03/05/24 20:45 90 22 109/87 92 03/05/24 20:39 90 22 126/86 94 03/05/24 20:24 91 H 22 118/93 93 03/05/24 20:21 90 22 122/92 94 03/05/24 20:18 89 22 132/94 93 03/05/24 20:11 126/96 03/05/24 20:06 138/84 03/05/24 20:00 119/90 03/05/24 19:55 114/69 03/05/24 19:54 91 H 22 98/60 L 92 03/05/24 19:45 70/45 L 03/05/24 19:24 94 H 22 97 03/05/24 19:06 92 H 22 111/92 92 03/05/24 19:02 90 22 94 03/05/24 18:48 89 22 95 03/05/24 18:42 92 H 22 92 03/05/24 18:33 93 H 96 03/05/24 18:21 94 H 21 95 03/05/24 18:18 91 H 26 H 96 03/05/24 18:17 160/112 H 03/05/24 18:17 160/112 H 03/05/24 18:17 160/112 H 03/05/24 18:06 89 20 96 03/05/24 18:03 89 21 96 03/05/24 17:57 89 22 94 03/05/24 17:53 37.4 C 94 H 26 H 90 Oxymask 03/05/24 17:39 94 H 26 H 90 Oxymask 03/05/24 17:39 37.4 C 26 H 160/102 H 90 Non-rebreather 03/05/24 17:29 93 H 03/05/24 17:28 160/102 H 03/05/24 17:28 160/102 H 03/05/24 17:27 103 H 39 H 03/05/24 17:24 64 L Oxymask O2 Flow Rate FiO2 03/05/24 20:45 03/05/24 20:39 03/05/24 20:24 03/05/24 20:21 03/05/24 20:18 03/05/24 20:11 03/05/24 20:06 03/05/24 20:00 03/05/24 19:55 03/05/24 19:54 03/05/24 19:45 03/05/24 19:24 03/05/24 19:06 03/05/24 19:02 100 03/05/24 18:48 03/05/24 18:42 03/05/24 18:33 03/05/24 18:21 03/05/24 18:18 03/05/24 18:17 03/05/24 18:17 03/05/24 18:17 03/05/24 18:06 03/05/24 18:03 03/05/24 17:57 03/05/24 17:53 15 03/05/24 17:39 03/05/24 17:39 15 03/05/24 17:29 03/05/24 17:28 03/05/24 17:28 03/05/24 17:27 03/05/24 17:24 0 Laboratory Results Laboratory Results WBC 13.83 K/ul (4.8-10.8) H 03/05/24 17:45 RBC 6.11 M/uL (4.70-6.10) H 03/05/24 17:45 Hgb 14.7 g/dl (14.0-18.0) 03/05/24 17:45 POC Hgb 15.6 g/dl (14.0-18.0) 03/05/24 22: Hct 50.0 % (42.0-52.0) 03/05/24 17:45 POC Hct 46 % (42-52) 03/05/24 22: MCV 81.8 fL (80.0-100.0) 03/05/24 17:45 MCH 24.1 pg (25.0-34.0) L 03/05/24 17:45 MCHC 29.4 g/dL (32.0-36.0) L 03/05/24 17:45 RDW Std Deviation 52.6 fL (36.4-46.3) H 03/05/24 17:45 RDW Coeff of Nelson 19.1 % (11.5-14.5) H 03/05/24 17:45 Plt Count 344 K/uL (130-400) 03/05/24 17:45 MPV 9.2 fL (9.4-12.4) L 03/05/24 17:45 Immature Gran % (Auto) 1.2 % 03/05/24 17:45 Neut % (Auto) 74.7 % 03/05/24 17:45 Lymph % (Auto) 13.3 % 03/05/24 17:45 [place] % (Auto) 10.1 % 03/05/24 17:45 Eos % (Auto) 0.1 % 03/05/24 17:45 Baso % (Auto) 0.6 % 03/05/24 17:45 Neut # (Auto) 10.33 K/uL (1.40-6.50) H 03/05/24 17:45 Lymph # (Auto) 1.84 K/uL (1.20-3.40) 03/05/24 17:45 [place]ham # (Auto) 1.40 K/uL (0.11-0.59) H 03/05/24 17:45 Eos # (Auto) 0.01 K/uL (0.00-0.50) 03/05/24 17:45 Baso # (Auto) 0.08 K/uL (0.00-0.20) 03/05/24 17:45 Immature Gran # (Auto) 0.17 K/uL (0.01-0.20) 03/05/24 17:45 Absolute Nucleated RBC 0.02 K/uL (0.00-0.12) 03/05/24 17:45 Nucleated RBC % (auto) 0.1 % 03/05/24 17:45 PT 15.5 Seconds (9.0-12.0) H 03/05/24 17:45 INR 1.5 (0.9-1.1) H 03/05/24 17:45 APTT 28 Seconds (21-31) 03/05/24 17:45 PTT Ratio 1.0 03/05/24 17:45 D-Dimer 3910 ug/L FEU (0-500) H* 03/05/24 19:38 Sample Site L Radial 03/05/24 22:24 POC pH 7.25 (7.35-7.45) L 03/05/24 22:24 POC pCO2 81 mmHg (35-46) H 03/05/24 22:24 POC pO2 39 mmHg (80-95) L 03/05/24 22:24 POC HCO3 36 elvira/L (19-24) H 03/05/24 22:24 POC Total CO2 38 mmol/L (24-31) H 03/05/24 22:24 POC Base Excess 9.0 elvira/L (-9-1.8) H 03/05/24 22:24 ABG pH 7.25 (7.35-7.45) L 03/05/24 19:40 ABG pH (Temp Correct) 7.254 (7.35-7.45) L 03/05/24 22:24 ABG pCO2 76 mmHg (35-46) H 03/05/24 19:40 ABG pCO2 (Temp Corrct 81 mmHg (35-46) H 03/05/24 22:24 ABG pO2 88 mmHg (80-95) 03/05/24 19:40 POC ABG pO2 at Pt Temp 39 03/05/24 22:24 ABG HCO3 33 mmol/L (19-24) H 03/05/24 19:40 POC ABG O2 Sat 61.0 % (90-95) L 03/05/24 22:24 ABG O2 Saturation 95.9 % (90-95) H 03/05/24 19:40 ABG Base Excess 3.6 mEq/L (-9-1.8) H 03/05/24 19:40 Ibrahima Test Pass 03/05/24 22:24 Barometric Pressure Cancelled 03/05/24 17:49 Oxygen Given 100% 03/05/24 19:40 O2 Delivery Device Ventilator 03/05/24 22:24 POC O2 Rate 22 03/05/24 22:24 Minute Ventilation 9.9 03/05/24 22:24 POC FiO2 100 % 03/05/24 22:24 Tidal Volume 450 03/05/24 22:24 PEEP 10 03/05/24 22:24 POC Sodium 128 mmol/L (135-144) L 03/05/24 22:24 Sodium 133 mmol/L (136-145) L 03/05/24 19:16 POC Potassium 4.9 mmol/L (3.3-5.0) 03/05/24 22:24 Potassium 5.9 mmol/L (3.5-5.1) H 03/05/24 19:16 POC Chloride 93 mmol/L (101-112) L 03/05/24 17:52 Chloride 94 mmol/L (98-107) L 03/05/24 19:16 Carbon Dioxide 32 mmol/L (21-32) 03/05/24 19:16 POC Total CO2 32 mmol/L (24-31) H 03/05/24 17:52 Anion Gap 7 (3-11) 03/05/24 19:16 POC Anion Gap 14.0 mmol/L (16-25) L 03/05/24 17:52 POC BUN 47 mg/dl (7-18) H 03/05/24 17:52 BUN 39 mg/dl (6-23) H 03/05/24 19:16 Creatinine 1.65 mg/dl (0.6-1.4) H 03/05/24 19:16 POC Creatinine 1.8 mg/dl (0.6-1.3) H 03/05/24 17:52 Est Cr Clr Drug Dosing 119.7 ml/min 03/05/24 19:16 Est GFR ( Amer) 54.5 ml/min 03/05/24 19:16 Est GFR (Non-Af Amer) 47.0 ml/min 03/05/24 19:16 BUN/Creatinine Ratio 23.6 (10-20) H 03/05/24 19:16 Glucose 116 mg/dl (70-99(Fasting)) H 03/05/24 19:16 POC Glucose (other) 143 mg/dl (70-99) H 03/05/24 17:52 Lactate 1.4 mmol/L (0.4-2.0) 03/05/24 19:40 Calcium 8.3 mg/dl (8.6-10.3) L 03/05/24 19:16 POC Ioniz Calcium Augustus 1.02 mmol/l (1.12-1.32) L 03/05/24 17:52 Magnesium 2.4 mg/dl (1.7-2.4) 03/05/24 19:16 Total Bilirubin 1.6 mg/dl (0.2-1.0) H 03/05/24 19:16 Direct Bilirubin 0.4 mg/dl (0-0.2) H 03/05/24 19:16 AST 794 U/L (13-39) H 03/05/24 19:16 ALT 622 U/L (7-52) H 03/05/24 19:16 Alkaline Phosphatase 136 U/L (34-104) H 03/05/24 19:16 Ammonia 84.0 umol/L (18-72) H 03/05/24 19:40 Troponin I High Sens 231.7 pg/ml (0-20) H* 03/05/24 19:16 B-Natriuretic Peptide 579 pg/ml (0-100) H 03/05/24 19:16 Total Protein 6.9 gm/dl (6.0-8.3) 03/05/24 19:16 Albumin 3.7 gm/dl (3.4-5.0) 03/05/24 19:16 Lipase 24 U/L (11-82) 03/05/24 19:16 Urine Color Dark Yellow 03/05/24 20:06 Urine Appearance Cloudy (Clear) A 03/05/24 20:06 Urine pH 5.0 (4.5-7.5) 03/05/24 20:06 Ur Specific Armstrong 1.021 (1.000-1.030) 03/05/24 20:06 Urine Protein 2+ (Negative) H 03/05/24 20:06 Urine Glucose (UA) Negative (Negative) 03/05/24 20:06 Urine Ketones Negative (Negative) 03/05/24 20:06 Urine Blood Negative (Negative) 03/05/24 20:06 Urine Nitrite Negative (Negative) 03/05/24 20:06 Urine Bilirubin 1+ (Negative) H 03/05/24 20:06 Urine Urobilinogen Negative (Negative) 03/05/24 20:06 Ur Leukocyte Esterase Negative (Negative) 03/05/24 20:06 Urine WBC (Auto) 0-5 /hpf (0-5) 03/05/24 20:06 Urine RBC (Auto) 6-10 /hpf (0-2) H 03/05/24 20:06 U Hyaline Cast (Auto) >20 /lpf (0-2) H 03/05/24 20:06 U Epithel Cells (Auto) 6-10 /hpf (0-2) H 03/05/24 20:06 Urine Bacteria (Auto) None Seen (None Seen) 03/05/24 20:06 Ethyl Alcohol mg/dL < 10.0 mg/dl (<10.0) 03/05/24 18:09 Adenovirus (PCR) Not Detected (NotDetected) 03/05/24 17:57 B. pertussis DNA (PCR) Not Detected (NotDetected) 03/05/24 17:57 B.parapertussis DNA PCR Not Detected (NotDetected) 03/05/24 17:57 C. pneumoniae DNA (PCR) Not Detected (NotDetected) 03/05/24 17:57 Coronavirus OC43 (PCR) Not Detected (NotDetected) 03/05/24 17:57 Coronavirus HKU1 (PCR) Not Detected (NotDetected) 03/05/24 17:57 Coronavirus 229E (PCR) Not Detected (NotDetected) 03/05/24 17:57 SARS-CoV-2 (PCR) Not Detected (NotDetected) 03/05/24 17:57 Coronavirus NL63 (PCR) Not Detected (NotDetected) 03/05/24 17:57 Human Metapneumovir PCR Not Detected (NotDetected) 03/05/24 17:57 Influenza Type A (PCR) Not Detected (NotDetected) 03/05/24 17:57 Influenza Type B (PCR) Not Detected (NotDetected) 03/05/24 17:57 M. pneumoniae (PCR) Not Detected (NotDetected) 03/05/24 17:57 Parainfluenza 1 (PCR) Not Detected (NotDetected) 03/05/24 17:57 Parainfluenza 2 (PCR) Not Detected (NotDetected) 03/05/24 17:57 Parainfluenza 3 (PCR) Not Detected (NotDetected) 03/05/24 17:57 Parainfluenza 4 (PCR) Not Detected (NotDetected) 03/05/24 17:57 RSV (PCR) Not Detected (NotDetected) 03/05/24 17:57 Entero/Rhino (PCR) Not Detected (NotDetected) 03/05/24 17:57 Diagnostic Findings Exam(s): US VENOUS BILATERAL LOWER EXTREMITIES EXAM: US Duplex Bilateral Lower Extremities Veins CLINICAL HISTORY: Reason for exam: ?DVT. TECHNIQUE: Real-time duplex ultrasound scan of the bilateral lower extremity veins integrating B-mode two-dimensional vascular structure, Doppler spectral analysis, color flow Doppler imaging and compression. COMPARISON: No relevant prior studies available. FINDINGS: Right deep veins: Unremarkable. No DVT in the right common femoral, femoral, proximal deep femoral or popliteal veins. The veins demonstrate normal color flow, are normally compressible, with normal phasic flow and/or augmentation response. Right superficial veins: Unremarkable. No thrombus in the visualized right great saphenous vein. Left deep veins: Unremarkable. No DVT in the left common femoral, femoral, proximal deep femoral or popliteal veins. The veins demonstrate normal color flow, are normally compressible, with normal phasic flow and/or augmentation response. Left superficial veins: Unremarkable. No thrombus in the visualized left great saphenous vein. Soft tissues: No acute findings. No popliteal cyst. IMPRESSION: Bilateral lower extremity venous Doppler ultrasound negative for DVT. Electronically signed by: Romario Gonsales MD 03/06/24 01:30 AM Dictated: 03/06/24129 Transcribed: 03/06/24129 [place], [place] [phone] Ultrasound Report Patient: LANDON ZAMORA Admit Date: 03/05/24 MR#: [id number] Address1: [address] [place] [address] Acct ID:[id number] Address2: Date: 1970 [facility] Zip: [place] [address] Age: 53 Location: Sex: Room/Bed: [facility] Att Phy: Natalie Clark D.O. Diagnosis: ACUTE HYPOXIC RESPIRATORY FAILURE, AGITATION Eliana Phy: PCP,NO Service Date: 03/05/24 Fam Phy: Interpreting Phy: Romario Gonsales MDAdmit Phy: Natalie Clark D.O. Ordering Phy: Natalie Clark D.O. cc: ~ Exam(s): US OTHER US duplex portal hepatic veins EXAM: US Abdomen Limited CLINICAL HISTORY: Reason for exam: acute liver failure. TECHNIQUE: Real-time ultrasound of the abdomen with image documentation. COMPARISON: No relevant prior studies available. FINDINGS: Portal vein is patent with normal directionality of flow. Splenic vein is patent with normal directionality of flow. Hepatic artery is patent with normal directionality of flow. IMPRESSION: No evidence of portal vein thrombosis. Electronically signed by: Romario Gonsales MD 03/06/24 01:29 AM Dictated: 03/06/24128 Transcribed: 03/06/24128 [place], [place] [phone] Ultrasound Report Patient: LANDON ZAMORA Admit Date: 03/05/24 MR#: [id number] Address1: [address] [place] [address] Acct ID:[id number] Address2: Date: 1970 [facility] Zip: [place] [address] Age: 53 Location: Sex: M Room/Bed: [facility] Att Phy: Natalie Clark D.O. Diagnosis: ACUTE HYPOXIC RESPIRATORY FAILURE, AGITATION Eliana Phy: PCP,NO Service Date: 03/05/24 Fam Phy: Interpreting Phy: Romario Gonsales MDAdmit Phy: Natalie Clark D.O. Ordering Phy: Natalie Clark D.O. cc: ~ Exam(s): US LIVER EXAM: US Abdomen Limited CLINICAL HISTORY: Reason for exam: acute liver failure. TECHNIQUE: Real-time ultrasound of the abdomen with image documentation. COMPARISON: No relevant prior studies available. FINDINGS: Gallbladder is surgically absent Liver is of diffusely increased echogenicity Postoperative changes prior cholecystectomy. Kidney is unremarkable measuring 13.5 cm. Common bile duct within normal limits measuring 5.1 cm. IMPRESSION: Postoperative changes prior cholecystectomy Fatty infiltration of liver Electronically signed by: Romario Gonsales MD 03/06/24 01:24 AM Dictated: 03/06/24123 Transcribed: 03/06/24123 ECG Additional Comments: EKG with SR at 96 bpm, 1st degree AV block with ZT=230, JYV=373, VGl=152, left axis deviation, incomplete RBBB, no acute ischemic changes PG Care Time/CCT Total # of Minutes Spent Total Time Spent with Patient: Total time spent is greater than 50% in coordination of care (as documented) at patient's floor/unit and/or counseling patient: Coding Level of Care Code 06480 INT INP/OBS CARE 3/75MIN Diagnoses Hypoxia R09.02 EVA (acute kidney injury) N17.9 Elevated LFTs R79.89 Morbid obesity E66.01
--- NOTE | 2024-03-05 22:01 | Critical Care Consultation ---
Date of Consultation March 05, 2024 Assessment & Plan (1) Respiratory failure requiring intubation: (2) Encephalopathy: (3) Morbid obesity: (4) Sepsis: (5) Hypoxia: (6) Acute liver failure: (7) Elevated LFTs: (8) EVA (acute kidney injury): Plan Reason Critically Ill: 53 YOM brought to the EMD for confusion at home, hypoxic/hypercarbic respiratory failure requiring emergent intubation. Likely sepsis with multiple organ dysfunction, acute liver failure, and hypoxia. Intubated sedated. Neuro - Sedation for mechanical ventilation, Encephalopathy CAM ICU: SHEA - Continue with Fentanyl- consider versed vs. propofol with liver injury- Hx of first degree AV block will decline on precedex use - Metbolic encephalopathy multifactiorial at this time- ammonia elevated to 80s, renal function elevated, hypoxia and hypercarbia - treat underlying causes with ventilatory support - will add lactulose down NGT - Defend MAP of 65 and cyrstalloids/colloids as indicated - No focal deficits at this time and pupils are equal and reactive making an intracranial process less likely Cardiac - Shock unspecified, HfpEF, LVH - patient presents with shock likely septic vs. obstructive at this time vs. right sided or biv failure - lactate has improved and remains off of vasopressors currently - obtain Doppler of legs to eval for DVT- concern for PE unable to obtain CTA of the chest - Heparin infusion until all studies are back - Has responded well with weaning of oxygen and PEEP - Elevated BNP and evidence of peripheral edema- at this time may have component of BI-ventricular failure- if hemodynamics allow will attempt diuretic therapy - as lungs appear relatively without pulmonary edema likely not BiV failure- however likely with RV failure - HsCTNI likely secondary to mismatch with hypoxia - ECHO in morning- previous with EF 60-65% with severe LVH- pulmonic valve and mitral valve poorly visualized secondary to body habitus on most recent echo in Aug- so at this time TAPSE unknown Respiratory - Hypoxic and hypercarbic respiratory failure, obesity hypoventilation syndrome - Respiratory failure at this time multifactorial however can not exclude pulmonary embolism at this time- as above - Diurese as able - No evidence of opacification noted on CXR- may have small pleural effusions with blunting of costophrenic angles- attempt bedside POCUS to eval - ARDSnet low PEEP high FIO2 algorithm for now- wean fio2 - daily awakening and SBT when appropriate - chronically elevated HCO3 supports obesity hypoventilation syndrome, unsure of home use of CPAP but has declined here on previous admissions as well as today - possible that encephalopathy worsened ventilation with increased co2 and resulting in hypoxia as well GI - Acute liver failure - Encephalopathy Garde II-III, elevated ammonia level, elevated LFTs, elevated INR 1.5, elevated bili- patient has surgical history of gallbladder removal - DDX at this time: Cirrhosis from fatty liver disease vs. portal thrombus vs right sided heart failure or Bi-ventricular failure vs reactionary to sepsis - will initiate NAC therapy and lactulose - ASA and Acetaminophen levels are pending - Obtain RUQUS with hepatic Doppler if able related to body habitus - Hepatitis panel - Fibrinogen pending - Supportive care at this time- pending clinical course - early consideration to liver specialist RENAL/LYTES - EVA, Respiratory acidosis - Likely secondary to shock - supportive care at this time- defend map as well as cardiac output - fluid boluses if indicated - vasopressor support to keep MAPS >65 - Perez to gravity ENDO - DMII - ICU hyper/hypoglycemic protocol HEME - See ID section - with elevated bilirubin will send LDH and ferritin- he is not anemic so makes MAHA less likely - tick panel pending ID - Sepsis of unknown source at this time- but likely skin - Will cover for pulmonary and skin sources at this time as most likely- consideration if deteriorates will be given to adding antifungal coverage as well - Rocephin and Daptomycin/Linezolid based on MRSA swab- avoid Vancomycin secondary to weight and achieving steady state LINES/IV ACCESS - PIV, ETT, NGT, Folye catheter, Arterial line, CVL Continue use of these lines DVT PROPHYLAXIS - SCDS, hheparin infusion- if ultrasounds negative for thrombus and Pao2/Spo2 without gradient will place on 7500 TID heparin sub q DISPO: ICU while intubated and sedated, continue to eval for place that can provide advanced imaging. I have personally spent 70 minutes of critical care time in the direct management of this patient. This is a life/limb threatening event. This includes time spent evaluating patient, direct bedside care, chart review, placing orders, interpretation of diagnostic studies, discussion with consultants, patient, and family members, as well as other required patient management activities. This time is exclusive of all separately billable procedures, and teaching time and separate from and in addition to any other critical care service time. Thank you for allowing us to participate in the care of this patient. Please refer to my attending physician's documentation for any further recommendations. History of Present Illness Reason for Consultation: hypoxic respiratory failure requiring emergent intubation and encephalopathy Requesting Physician: natalie clark DO Attending Physician: Natalie Clark DO History of Present Illness 53 Morbidly obese male with medical history that is smattered through the chart appears to be- EMELY/obesity hypoventilation syndrome- noncompliant, previous smoker, psoriasis, DMII. 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 Patient was brought to the EMD today via EMS for concerns of confusion at home. He was also noted to be hypoxic when EMS arrived to the 60s. He declined CPAP/BiPAP and failed HFNC in the emergency department. With his worsening encephalopathy and hypoxia, he was intubated in the EMD. Routine labs were sent- and resulting noting leukocytosis on CBC, EVA, elevated LFTs, Ammonia and INR levels, elevated BNP and HsCTNi, ABG prior to intubation was notable for respiratory acidosis. He is with elevated D-dimer as well. He was noted to now be too large for our CT scanner to obtain head CT as well as CTA of chest and abd/pelvis. For this morbidly obese male to rule out intracranial process, pulmonary embolism, and eval GI sources of possible infective process or thrombus, it was felt he would be better served going to a center that can support his weight with imaging capabilities. Following multiple calls by the EMD provider to outside institutions, there were no centers that could accommodate his weight or girth for advanced imaging. Patient will be managed here until appropriate imaging can be obtained or improvement in status. Patient will be brought to the ICU- continue board spectrum antibiotics, obtain ultrasounds of liver with Doppler, Doppler of lower extremities eval for DVT. Will start on NAC therapy for elevation of LFTs, lactulose and continue supportive care. Will likely need arterial line for adequate hemodynamic monitoring as well as labs, and central access as he is with fragile peripheral access at this time. Discussion was held by myself, Dr. Clark and Dr. Roman in the ED with the patient's . She does understand the multitude of abnormalities the patient has at this time and there may be life threatening/debilitating process ongoing that we are unable to diagnose and by treating other concerns- i.e pulmonary embolism, other thrombus, that this may worsen other pathologies unkown at this time and is possible to result in permanent dissability or . is understanding of this limitations and risks. "Treat what you think needs treated and we hope nothing happens". CODE: FULL- however would like to talk to the patient's father who lives in [place] Allergies Allergy/AdvReac Type Severity Reaction Status Date / Time No Known Allergies Allergy Unverified 03/05/24 19:32 Home Medications Medication Instructions Recorded Confirmed Type [id number] 250 2 - 4 tab PO Q8 PRN Pain 03/05/24 03/05/24 History mg-250 mg-65 mg tablet (Excedrin Extra Strength) celecoxib 100 mg capsule 100 mg PO BID PRN Pain 03/05/24 03/05/24 History metformin 1,000 mg tablet,extended 1,000 mg PO BID 03/05/24 03/05/24 History release 24hr (osmotic) triamterene 37.5 1 cap PO DAILY 03/05/24 03/05/24 History mg-hydrochlorothiazide 25 mg capsule Patient History Medical History Prediabetes Candidiasis of mouth and esophagus AV block Benign essential hypertension Tinea cruris Psoriasis Pickwickian syndrome Cellulitis of leg, right Morbid obesity with BMI of 60.0-69.9, adult Surgical History History of appendectomy History of cholecystectomy Social History Smoking Status: Current every day smoker Tobacco Type: Cigarettes Cigarettes Per Day: pack per day; Second Hand Exposure: No; Do You Dip or Chew Tobacco: No; Hx Alcohol Use: No (quit 4 yrs ago) Hx Substance Use: No Preferred Language: Finnish Communication Ability: Effective Delicatessen Department Manager Required: Yes Beliefs That Will Affect Care: None Current Living Situation: Spouse Other Information That Helps Us Care for You: No Feels Safe at Home: Yes Safety Concerns: Feels Safe At This Time Assistive Devices: Cane Review of Systems Review of Systems: unable to obtain secondary to intubation and sedation Physical Exam Physical Exam: PHYSICAL EXAM: General: sedated Head: Normocephalic, atraumatic Neuro: AAO x 0, eyes with pupils 2-1 brisk, icteric and injected, spontaneously moving feet and legs, withdraws to pain. No deficits prior to intubation other than confusion reported Chest: equal rise and fall of the chest, no accessory muscle use, no heaves or thrills, Clear to auscultation, on room air, Cardiac: Regular rate and rhythm, telemetry reviewed- NSR, skin warm dry, cap refill <3 seconds, peripheral pulses +2, no murmur, pitting edema to lower extremities up to knees GI: morbidly obese limiting abdominal exam, soft no grimacing with palpation : Perez to gravity- draining renato urine Extremities: Normal inspection, no peripheral edema or erythema, calfs nontender to palpation Skin: multiple areas of excoriation to chest, irritation to under breasts, open sores to feet, legs, and hands and arms, some psoriasis in appearance, other with purulence Results & Data Results & Data Vital Signs (Past 12 Hours) Vital Signs Temp Pulse Resp BP BP Pulse Ox O2 Del Method 03/05/24 20:45 90 22 109/87 92 03/05/24 20:39 90 22 126/86 94 03/05/24 20:24 91 H 22 118/93 93 03/05/24 20:21 90 22 122/92 94 03/05/24 20:18 89 22 132/94 93 03/05/24 20:11 126/96 03/05/24 20:06 138/84 03/05/24 20:00 119/90 03/05/24 19:55 114/69 03/05/24 19:54 91 H 22 98/60 L 92 03/05/24 19:45 70/45 L 03/05/24 19:24 94 H 22 97 03/05/24 19:06 92 H 22 111/92 92 03/05/24 19:02 90 22 94 03/05/24 18:48 89 22 95 03/05/24 18:42 92 H 22 92 03/05/24 18:33 93 H 96 03/05/24 18:21 94 H 21 95 03/05/24 18:18 91 H 26 H 96 03/05/24 18:17 160/112 H 03/05/24 18:17 160/112 H 03/05/24 18:17 160/112 H 03/05/24 18:06 89 20 96 03/05/24 18:03 89 21 96 03/05/24 17:57 89 22 94 03/05/24 17:53 37.4 C 94 H 26 H 90 Oxymask 03/05/24 17:39 94 H 26 H 90 Oxymask 03/05/24 17:39 37.4 C 26 H 160/102 H 90 Non-rebreather 03/05/24 17:29 93 H 03/05/24 17:28 160/102 H 03/05/24 17:28 160/102 H 03/05/24 17:27 103 H 39 H 03/05/24 17:24 64 L Oxymask O2 Flow Rate FiO2 03/05/24 20:45 03/05/24 20:39 03/05/24 20:24 03/05/24 20:21 03/05/24 20:18 03/05/24 20:11 03/05/24 20:06 03/05/24 20:00 03/05/24 19:55 03/05/24 19:54 03/05/24 19:45 03/05/24 19:24 03/05/24 19:06 03/05/24 19:02 100 03/05/24 18:48 03/05/24 18:42 03/05/24 18:33 03/05/24 18:21 03/05/24 18:18 03/05/24 18:17 03/05/24 18:17 03/05/24 18:17 03/05/24 18:06 03/05/24 18:03 03/05/24 17:57 03/05/24 17:53 15 03/05/24 17:39 03/05/24 17:39 15 03/05/24 17:29 03/05/24 17:28 03/05/24 17:28 03/05/24 17:27 03/05/24 17:24 0 Laboratory Results Abnormal lab results 03/05/24 03/05/24 03/05/24 Range/Units 17:44 17:45 17:52 WBC 13.83 H (4.8-10.8) K/ul RBC 6.11 H (4.70-6.10) M/uL MCH 24.1 L (25.0-34.0) pg MCHC 29.4 L (32.0-36.0) g/dL RDW Std Deviation 52.6 H (36.4-46.3) fL RDW Coeff of Nelson 19.1 H (11.5-14.5) % MPV 9.2 L (9.4-12.4) fL Neut # (Auto) 10.33 H (1.40-6.50) K/uL [place] # (Auto) 1.40 H (0.11-0.59) K/uL PT 15.5 H (9.0-12.0) Seconds INR 1.5 H (0.9-1.1) D-Dimer (0-500) ug/L FEU POC pH 7.24 L (7.35-7.45) POC pCO2 78 H (35-46) mmHg POC pO2 67 L (80-95) mmHg POC HCO3 33 H (19-24) elvira/L POC Total CO2 36 H 32 H (24-31) mmol/L POC Base Excess 6.0 H (-9-1.8) elvira/L ABG pH (7.35-7.45) ABG pCO2 (35-46) mmHg ABG HCO3 (19-24) mmol/L POC ABG O2 Sat 88.0 L (90-95) % ABG O2 Saturation (90-95) % ABG Base Excess (-9-1.8) mEq/L POC Sodium 132 L 132 L (135-144) mmol/L Sodium (136-145) mmol/L POC Potassium 5.9 H (3.3-5.0) mmol/L Potassium (3.5-5.1) mmol/L POC Chloride 93 L (101-112) mmol/L Chloride (98-107) mmol/L POC Anion Gap 14.0 L (16-25) mmol/L POC BUN 47 H (7-18) mg/dl BUN (6-23) mg/dl Creatinine (0.6-1.4) mg/dl POC Creatinine 1.8 H (0.6-1.3) mg/dl BUN/Creatinine Ratio (10-20) Glucose (70-99(Fasting)) mg/dl POC Glucose (other) 143 H (70-99) mg/dl Lactate 2.1 H* (0.4-2.0) mmol/L Calcium (8.6-10.3) mg/dl POC Ioniz Calcium Augustus 1.02 L (1.12-1.32) mmol/l Total Bilirubin (0.2-1.0) mg/dl Direct Bilirubin (0-0.2) mg/dl AST (13-39) U/L ALT (7-52) U/L Alkaline Phosphatase (34-104) U/L Ammonia (18-72) umol/L Troponin I High Sens (0-20) pg/ml B-Natriuretic Peptide (0-100) pg/ml Urine Appearance (Clear) Urine Protein (Negative) Urine Bilirubin (Negative) Urine RBC (Auto) (0-2) /hpf U Hyaline Cast (Auto) (0-2) /lpf U Epithel Cells (Auto) (0-2) /hpf 03/05/24 03/05/24 03/05/24 Range/Units 19:16 19:38 19:40 WBC (4.8-10.8) K/ul RBC (4.70-6.10) M/uL MCH (25.0-34.0) pg MCHC (32.0-36.0) g/dL RDW Std Deviation (36.4-46.3) fL RDW Coeff of Nelson (11.5-14.5) % MPV (9.4-12.4) fL Neut # (Auto) (1.40-6.50) K/uL [place] # (Auto) (0.11-0.59) K/uL PT (9.0-12.0) Seconds INR (0.9-1.1) D-Dimer 3910 H* (0-500) ug/L FEU POC pH (7.35-7.45) POC pCO2 (35-46) mmHg POC pO2 (80-95) mmHg POC HCO3 (19-24) elvira/L POC Total CO2 (24-31) mmol/L POC Base Excess (-9-1.8) elvira/L ABG pH 7.25 L (7.35-7.45) ABG pCO2 76 H (35-46) mmHg ABG HCO3 33 H (19-24) mmol/L POC ABG O2 Sat (90-95) % ABG O2 Saturation 95.9 H (90-95) % ABG Base Excess 3.6 H (-9-1.8) mEq/L POC Sodium (135-144) mmol/L Sodium 133 L (136-145) mmol/L POC Potassium (3.3-5.0) mmol/L Potassium 5.9 H (3.5-5.1) mmol/L POC Chloride (101-112) mmol/L Chloride 94 L (98-107) mmol/L POC Anion Gap (16-25) mmol/L POC BUN (7-18) mg/dl BUN 39 H (6-23) mg/dl Creatinine 1.65 H (0.6-1.4) mg/dl POC Creatinine (0.6-1.3) mg/dl BUN/Creatinine Ratio 23.6 H (10-20) Glucose 116 H (70-99(Fasting)) mg/dl POC Glucose (other) (70-99) mg/dl Lactate (0.4-2.0) mmol/L Calcium 8.3 L (8.6-10.3) mg/dl POC Ioniz Calcium Augustus (1.12-1.32) mmol/l Total Bilirubin 1.6 H (0.2-1.0) mg/dl Direct Bilirubin 0.4 H (0-0.2) mg/dl AST 794 H (13-39) U/L ALT 622 H (7-52) U/L Alkaline Phosphatase 136 H (34-104) U/L Ammonia 84.0 H (18-72) umol/L Troponin I High Sens 231.7 H* (0-20) pg/ml B-Natriuretic Peptide 579 H (0-100) pg/ml Urine Appearance (Clear) Urine Protein (Negative) Urine Bilirubin (Negative) Urine RBC (Auto) (0-2) /hpf U Hyaline Cast (Auto) (0-2) /lpf U Epithel Cells (Auto) (0-2) /hpf // Range/Units 20:06 WBC (4.8-10.8) K/ul RBC (4.70-6.10) M/uL MCH (25.0-34.0) pg MCHC (32.0-36.0) g/dL RDW Std Deviation (36.4-46.3) fL RDW Coeff of Nelson (11.5-14.5) % MPV (9.4-12.4) fL Neut # (Auto) (1.40-6.50) K/uL [place] # (Auto) (0.11-0.59) K/uL PT (9.0-12.0) Seconds INR (0.9-1.1) D-Dimer (0-500) ug/L FEU POC pH (7.35-7.45) POC pCO2 (35-46) mmHg POC pO2 (80-95) mmHg POC HCO3 (19-24) elvira/L POC Total CO2 (24-31) mmol/L POC Base Excess (-9-1.8) elvira/L ABG pH (7.35-7.45) ABG pCO2 (35-46) mmHg ABG HCO3 (19-24) mmol/L POC ABG O2 Sat (90-95) % ABG O2 Saturation (90-95) % ABG Base Excess (-9-1.8) mEq/L POC Sodium (135-144) mmol/L Sodium (136-145) mmol/L POC Potassium (3.3-5.0) mmol/L Potassium (3.5-5.1) mmol/L POC Chloride (101-112) mmol/L Chloride (98-107) mmol/L POC Anion Gap (16-25) mmol/L POC BUN (7-18) mg/dl BUN (6-23) mg/dl Creatinine (0.6-1.4) mg/dl POC Creatinine (0.6-1.3) mg/dl BUN/Creatinine Ratio (10-20) Glucose (70-99(Fasting)) mg/dl POC Glucose (other) (70-99) mg/dl Lactate (0.4-2.0) mmol/L Calcium (8.6-10.3) mg/dl POC Ioniz Calcium Augustus (1.12-1.32) mmol/l Total Bilirubin (0.2-1.0) mg/dl Direct Bilirubin (0-0.2) mg/dl AST (13-39) U/L ALT (7-52) U/L Alkaline Phosphatase (34-104) U/L Ammonia (18-72) umol/L Troponin I High Sens (0-20) pg/ml B-Natriuretic Peptide (0-100) pg/ml Urine Appearance Cloudy A (Clear) Urine Protein 2+ H (Negative) Urine Bilirubin 1+ H (Negative) Urine RBC (Auto) 6-10 H (0-2) /hpf U Hyaline Cast (Auto) >20 H (0-2) /lpf U Epithel Cells (Auto) 6-10 H (0-2) /hpf Diagnostic Findings Chest X-Ray 03/05/24 17:38 XR chest 1V portable HISTORY: 53 years-old Male ams acutely altered mental status COMPARISON: 08/24/2023 TECHNIQUE: AP view of the chest FINDINGS: Cardiac silhouette is enlarged. Mild bibasilar densities suggest atelectasis. No pneumothorax, large pleural effusion or overt pulmonary edema. IMPRESSION: Cardiomegaly without acute process. ACT 112: Negative or not required by law. The above report was generated using voice recognition software. It may contain grammatical, syntax or spelling errors. Electronically signed by: Filippo Torres M.D. 03/05/2024 5:50 PM Chest X-Ray 03/05/24 18:38 XR chest 1V portable HISTORY: 53 years-old Male ett placement acute respiratory failure COMPARISON: Chest radiograph of same day at 5:44 PM TECHNIQUE: AP view of the chest FINDINGS: Endotracheal tube overlies the midline, 4 cm superior to the nak[place]. Heart is enlarged. Pulmonary vascular congestion. No pneumothorax or pleural effusion. Bones appear intact. IMPRESSION: 1. Endotracheal tube overlies the midline, 4 cm superior to the nakita. 2. Cardiomegaly with pulmonary vascular congestion. ACT 112: Negative or not required by law. The above report was generated using voice recognition software. It may contain grammatical, syntax or spelling errors. Electronically signed by: Filippo Torres M.D. 03/05/2024 6:48 PM Liver Ultrasound 03/05/24 21:17 Exam(s): US LIVER EXAM: US Abdomen Limited CLINICAL HISTORY: Reason for exam: acute liver failure. TECHNIQUE: Real-time ultrasound of the abdomen with image documentation. COMPARISON: No relevant prior studies available. FINDINGS: Gallbladder is surgically absent Liver is of diffusely increased echogenicity Postoperative changes prior cholecystectomy. Kidney is unremarkable measuring 13.5 cm. Common bile duct within normal limits measuring 5.1 cm. IMPRESSION: Postoperative changes prior cholecystectomy Fatty infiltration of liver Electronically signed by: Romario Gonsales MD 03/06/24 01:24 AM Portal Vein US 03/05/24 21:17 Exam(s): US OTHER US duplex portal hepatic veins EXAM: US Abdomen Limited CLINICAL HISTORY: Reason for exam: acute liver failure. TECHNIQUE: Real-time ultrasound of the abdomen with image documentation. COMPARISON: No relevant prior studies available. FINDINGS: Portal vein is patent with normal directionality of flow. Splenic vein is patent with normal directionality of flow. Hepatic artery is patent with normal directionality of flow. IMPRESSION: No evidence of portal vein thrombosis. Electronically signed by: Romario Gonsales MD 03/06/24 01:29 AM Venous Doppler Study 03/05/24 21:17 Exam(s): US VENOUS BILATERAL LOWER EXTREMITIES EXAM: US Duplex Bilateral Lower Extremities Veins CLINICAL HISTORY: Reason for exam: ?DVT. TECHNIQUE: Real-time duplex ultrasound scan of the bilateral lower extremity veins integrating B-mode two-dimensional vascular structure, Doppler spectral analysis, color flow Doppler imaging and compression. COMPARISON: No relevant prior studies available. FINDINGS: Right deep veins: Unremarkable. No DVT in the right common femoral, femoral, proximal deep femoral or popliteal veins. The veins demonstrate normal color flow, are normally compressible, with normal phasic flow and/or augmentation response. Right superficial veins: Unremarkable. No thrombus in the visualized right great saphenous vein. Left deep veins: Unremarkable. No DVT in the left common femoral, femoral, proximal deep femoral or popliteal veins. The veins demonstrate normal color flow, are normally compressible, with normal phasic flow and/or augmentation response. Left superficial veins: Unremarkable. No thrombus in the visualized left great saphenous vein. Soft tissues: No acute findings. No popliteal cyst. IMPRESSION: Bilateral lower extremity venous Doppler ultrasound negative for DVT. Electronically signed by: Romario Gonsales MD 03/06/24 01:30 AM Medications Administered Fentanyl Citrate (Fentanyl Bolus From Bag) 50 mcg IV Q60M PRN PRN Reason: Pain or Agitation Stop: 03/19/24 19:03 Last Admin: 03/05/24 21:01 Dose: 25 mcg Documented By: STEVEN Co-signed By: LEANN Admin: 03/05/24 19:14 Dose: 50 mcg Documented By: STEVEN Co-signed By: LEANN Propofol (Diprivan) 1,000 mg in 100 mls @ 42.12 mls/hr IV .Q2H23M [facility]; Protocol Stop: 03/08/24 19:14 Last Admin: 03/05/24 20:34 Dose: 25 mcg/kg/min, 42.1 mls/hr Documented By: STEVEN Co-signed By: LEANN Titration: 03/05/24 20:34 Dose: Infused Documented By: STEVEN Co-signed By: LEANN Titration: 03/05/24 19:49 Dose: 25 mcg/kg/min, 42.1 mls/hr Documented By: Titration: 03/05/24 19:34 Dose: 35 mcg/kg/min, 59 mls/hr Documented By: Titration: 03/05/24 19:07 Dose: 30 mcg/kg/min, 50.5 mls/hr Documented By: Admin: 03/05/24 19:07 Dose: 20 mcg/kg/min, 33.7 mls/hr Documented By: KENDRA Co-signed By: MARISELA Fentanyl Citrate (Fentanyl Citrate) 2,500 mcg in 250 mls @ 2.5 mls/hr IV .Q96H [facility]; Protocol Stop: 03/19/24 19:14 Last Titration: 03/05/24 21:01 Dose: 50 mcg/hr, 5 mls/hr Documented By: STEVEN Co-signed By: LEANN Admin: 03/05/24 19:12 Dose: 25 mcg/hr, 2.5 mls/hr Documented By: STEVEN Co-signed By: LEANN Propofol (Propofol Bolus From Bag) 20 mg IV Q5M PRN PRN Reason: Sedation Stop: 03/08/24 19:03 Last Admin: 03/05/24 19:34 Dose: 20 mg Documented By: STEVEN Co-signed By: LEANN Admin: 03/05/24 19:17 Dose: 20 mg Documented By: STEVEN Co-signed By: RE Admin: 03/05/24 19:10 Dose: 20 mg Documented By: STEVEN Co-signed By: LEANN Discontinued Medications Sodium Chloride (Nss) 500 mls @ 999 mls/hr IV .Q31M ONE Stop: 03/05/24 20:16 Last Admin: 03/05/24 20:48 Dose: Not Given Documented By: STEVEN Lorazepam (Lorazepam 1 Mg/1 Ml Syr Ed Inj Use) 1 mg IV ONE STA Stop: 03/05/24 18:03 Last Admin: 03/05/24 18:06 Dose: 1 mg Documented By: SHREE Miscellaneous (Stat Iv Infusion Titration Per Protocol) 1 each N/A NOW STA Stop: 03/05/24 19:05 Last Admin: 03/05/24 20:49 Dose: Not Given Documented By: STEVEN Propofol (Propofol Iv Emulsion 10 Mg/Ml 100 Ml Vial) Confirm Administered Dose 1,000 mg IV .STK-MED ONE Stop: 03/05/24 18:41 Last Admin: 03/05/24 19:18 Dose: Not Given Documented By: STEVEN ECG Additional Comments: Sinus rhythm with 1st degree A-V block Left axis deviation Pulmonary disease pattern Incomplete right bundle branch block Abnormal ECG When compared with ECG of 24-AUG-2023 11:59, No significant change was found Coding Level of Care Code 69127 CRITICAL CARE 1ST 30-74M Diagnoses Respiratory failure requiring intubation J96.90 Encephalopathy G93.40 Morbid obesity E66.01 Sepsis A41.9 Hypoxia R09.02 Acute liver failure K72.00 Elevated LFTs R79.89 EVA (acute kidney injury) N17.9
[2024-03-05] MEDS ORDERED: AcetylCYSTEINE IV 21 HR REGIMEN (>40KG) IV STA (22:31)
[2024-03-05] MEDS ORDERED: STAT IV/IM STA (22:31)
[2024-03-05] MEDS ORDERED: ONDANSETRON INJ 2 MG/ML 2 ML VIAL IV PRN (22:31)
[2024-03-05] MEDS ORDERED: MIDAZOLAM BOLUS FROM BAG IV PRN (22:34)
[2024-03-05] MEDS ORDERED: STAT IV Infusion **Titration per Protocol STA (22:34)
[2024-03-05 22:38] LABS: iSTAT Allen Test Pass; iSTAT Art Bld Gas pCO2 Correct 81 mmHg (35-46); iSTAT Art Bld Gas pH Corrected 7.254 (7.35-7.45); iSTAT Arterial Blood Gas HCO3 36 meg/L (19-24); iSTAT Arterial Blood Gas pCO2 81 mmHg (35-46); iSTAT Arterial Blood Gas pH 7.25 (7.35-7.45); iSTAT Arterial Blood Gas pO2 39 mmHg (80-95); iSTAT Arterial Blood Gas pO2 C 39; iSTAT Carbon Dioxide 38 mmol/L (24-31); iSTAT FiO2 100 %; iSTAT Hematocrit 46 % (42-52); iSTAT Hemoglobin 15.6 g/dl (14.0-18.0); iSTAT Potassium 4.9 mmol/L (3.3-5.0); iSTAT Site L Radial; iSTAT Sodium 128 mmol/L (135-144)
[2024-03-05] MEDS: MIDAZOLAM HCL 125 MG/250 ML BAG IV SCH (22:47)
[2024-03-05] MEDS: CALCIUM GLUCONATE 1,000 MG/60 ML BAG IV STA (22:48)
[2024-03-05] MEDS: AcetylCYSTEINE 15,000 MG in DEXTROSE 5% 200 ML IV ONE (22:55)
[2024-03-05] MEDS: cefTRIAXone SODIUM 2,000 MG/50 ML BAG IV SCH (23:23)
[2024-03-05] MEDS: NYSTATIN POWDER 15GM BTL EXT SCH (23:25)
[2024-03-05] MEDS: DAPTOMYCIN IV ONE (23:25)
[2024-03-05 23:49] LABS: Chol HDL Ratio 6.3 (0-5); Phosphorus 4.9 mg/dl (2.5-4.9)
[2024-03-05 23:56] LABS: Procalcitonin 0.37 ng/ml (0-0.5)
[2024-03-06 00:03] LABS: Acetaminophen < 3 ug/ml (10-30); Salicylate < 3.0 mg/dl (3.0-30)
[2024-03-06 00:05] LABS: Thyroid Stimulating Hormone 0.906 uIu/ml (0.300-4.500)
[2024-03-06 00:06] LABS: Troponin I High Sensitivity 237.3 pg/ml (0-20)
[2024-03-06 00:11] LABS: Ferritin 38.4 ng/ml (8-388)
[2024-03-06 00:20] LABS: iSTAT Art Bld Gas pCO2 Correct 58 mmHg (35-46); iSTAT Art Bld Gas pH Corrected 7.365 (7.35-7.45); iSTAT Arterial Blood Gas HCO3 33 meg/L (19-24); iSTAT Arterial Blood Gas pCO2 58 mmHg (35-46); iSTAT Arterial Blood Gas pH 7.37 (7.35-7.45); iSTAT Arterial Blood Gas pO2 91 mmHg (80-95); iSTAT Arterial Blood Gas pO2 C 91; iSTAT Carbon Dioxide 35 mmol/L (24-31); iSTAT FiO2 75 %; iSTAT Hematocrit 44 % (42-52); iSTAT Potassium 4.5 mmol/L (3.3-5.0); iSTAT Site Art Line; iSTAT Sodium 135 mmol/L (135-144)
[2024-03-06 00:22] LABS: Lyme Screen Rflx Confirmation Negative (Negative)
[2024-03-06] MEDS ORDERED: Heparin IV Adult Wt-Based Standard *NO* INITIAL Bolus Protocol IV STA (00:44)
[2024-03-06] MEDS: AcetylCYSTEINE 5,000 MG in DEXTROSE 5% 500 ML IV ONE (00:45)
--- NOTE | 2024-03-06 00:46 | Procedure Note ---
Procedure Note Date of Service March 06, 2024 Note Procedure: Internal Jugular Central Line Placement Proceduralist: Zack MACE ([facility] Attending: Dr. Antonio Indication: Central Drug Administration, Poor Venous Access, Multiple Lab Draws Necessary, etc. Anesthesia: [x]Lidocaine 1% Verbal Consent was obtained from Chari in the EMD, as delegated to me by Dr. Antonio, Indication, risks, and benefits were explained at length. Witnessed by Natalie Soto who was present for full discussion A time-out was completed verifying correct patient, procedure, site, positioning, and implants(s) or special equipment if applicable. Patients RIGHT Neck was cleansed and draped in the typical sterile fashion using Chloraprep. The Internal Jugular Vein and Carotid Artery were identified using ultrasound. The superficial tissue was anesthetized using 4 mL of 1% lidocaine without epinephrine under direct visualization with the ultrasound. After adequate anesthetization was achieved, the Internal Jugular vein was cannulated under direct ultrasound guidance using an introducer needle on a syringe. Good venous blood return was maintained prior to removal of syringe from introducer needle. Using Seldinger Technique, a guide wire was advanced through the introducer needle without resistance. The introducer needle was removed and ultrasound images were obtained of the guide wire within the Internal Jugular Vein. A small incision was made in penetrating fashion at the guide wire insertion site utilizing an 11 blade scalpel. The dilator was advanced to the vessel without resistance. The dilator was exchanged for the triple lumen catheter which was advanced into the vessel without resistance. The guide wire was removed intact from the catheter without issue. Claves were placed on each catheter tip with confirmation of good blood flow from each lumen. Each port was easily flushed with sterile saline. The catheter was placed at 18 cm and sutured in place. BioPatch was applied to the catheter and a sterile Tegaderm dressing was applied over the catheter with careful attention to sterility. Patient tolerated procedure well. No immediate complications were met. Post procedure x-ray was completed, placement was appropriate in the SVC and no pneumothorax was noted. Artery AND Vein visualized: YES Compressible Vein: YES Guidewire or Short Catheter seen in vein prior to dilation: YES Images obtained are NOT saved for permanent record secondary to technical issues. Coding CPT Codes Tubes, Drains, and Vasc Access - Tubes, Drains, and Vasc Access: [id number] Insertion Of Non-tunneled Catheter Age 6 Yrs> ([id number]) [facility] [place] Procedure Codes (Charges) Tubes, Drains, and Vasc Access Procedure 1: Tubes, Drains, and Vasc Access: [id number] Insertion Of Non-tunneled Catheter Age 6 Yrs>
--- NOTE | 2024-03-06 00:46 | Procedure Note ---
Procedure Note Date of Service March 06, 2024 Note ARTERIAL LINE PROCEDURE NOTE: Procedure: Arterial Line Placement Proceduralist: Zack MACE ([facility]-) Attending: Dr. Antonio Indication: Monitoring on Pressors Anesthesia: [x]Lidocaine 1% Verbal Consent was obtained from Chari in the EMD, as delegated to me by Dr. Antonio. Indication, risks, and benefits were explained at length. Witnessed by Natalie Soto who was present for entire discussion A time-out was completed verifying correct patient, procedure, site, positioning, and implant(s) or special equipment if applicable. Allens test was performed to ensure adequate perfusion. Patients RIGHT wrist was prepped and draped in the usual sterile fashion. Ultrasound guidance was used to aid needle placement. A 20g Arrow arterial line was introduced into the RIGHT RADIAL artery, brisk flash of blood was noted, the wire was advanced without resistance, the catheter was then threaded, and the needle was removed with appropriate blood return. Pressure tubing was connected noting good waveform. Line was sutured in place and sterile dressing was applied The patient tolerated the procedure well. Line is positional Blood Loss: Minimal Complications: None immediately observed Artery Identified: YES Line confirmed in Artery with ultrasound: [] Complications: NONE Patient tolerated procedure: WELL Coding CPT Codes Tubes, Drains, and Vasc Access - Tubes, Drains, and Vasc Access: [id number] Arterial Cath/Cannulation Sampling/Monitoring/Transfusion ([id number]) [facility] [place] Procedure Codes (Charges) Tubes, Drains, and Vasc Access Procedure 1: Tubes, Drains, and Vasc Access: [id number] Arterial Cath/Cannulation Sampling/Monitoring/Transfusion
[2024-03-06 00:53] LABS: Fibrinogen 427 mg/dl (184-400)
[2024-03-06 01:13] LABS: Hep B Surface Ag with confirm Negative (Negative)
[2024-03-06 01:18] LABS: Hep C Ab Rflx HepCQuant RNA Negative (Negative)
--- NOTE | 2024-03-06 01:25 | Ultrasound Report ---
Exam(s): US LIVER EXAM: US Abdomen Limited CLINICAL HISTORY: Reason for exam: acute liver failure. TECHNIQUE: Real-time ultrasound of the abdomen with image documentation. COMPARISON: No relevant prior studies available. FINDINGS: Gallbladder is surgically absent Liver is of diffusely increased echogenicity Postoperative changes prior cholecystectomy. Kidney is unremarkable measuring 13.5 cm. Common bile duct within normal limits measuring 5.1 cm. IMPRESSION: Postoperative changes prior cholecystectomy Fatty infiltration of liver Electronically signed by: Romario Gonsales MD 03/06/24 01:24 AM
--- NOTE | 2024-03-06 01:30 | Ultrasound Report ---
Exam(s): US OTHER US duplex portal hepatic veins EXAM: US Abdomen Limited CLINICAL HISTORY: Reason for exam: acute liver failure. TECHNIQUE: Real-time ultrasound of the abdomen with image documentation. COMPARISON: No relevant prior studies available. FINDINGS: Portal vein is patent with normal directionality of flow. Splenic vein is patent with normal directionality of flow. Hepatic artery is patent with normal directionality of flow. IMPRESSION: No evidence of portal vein thrombosis. Electronically signed by: Romario Gonsales MD 03/06/24 01:29 AM
--- NOTE | 2024-03-06 01:31 | Ultrasound Report ---
Exam(s): US VENOUS BILATERAL LOWER EXTREMITIES EXAM: US Duplex Bilateral Lower Extremities Veins CLINICAL HISTORY: Reason for exam: ?DVT. TECHNIQUE: Real-time duplex ultrasound scan of the bilateral lower extremity veins integrating B-mode two-dimensional vascular structure, Doppler spectral analysis, color flow Doppler imaging and compression. COMPARISON: No relevant prior studies available. FINDINGS: Right deep veins: Unremarkable. No DVT in the right common femoral, femoral, proximal deep femoral or popliteal veins. The veins demonstrate normal color flow, are normally compressible, with normal phasic flow and/or augmentation response. Right superficial veins: Unremarkable. No thrombus in the visualized right great saphenous vein. Left deep veins: Unremarkable. No DVT in the left common femoral, femoral, proximal deep femoral or popliteal veins. The veins demonstrate normal color flow, are normally compressible, with normal phasic flow and/or augmentation response. Left superficial veins: Unremarkable. No thrombus in the visualized left great saphenous vein. Soft tissues: No acute findings. No popliteal cyst. IMPRESSION: Bilateral lower extremity venous Doppler ultrasound negative for DVT. Electronically signed by: Romario Gonsales MD 03/06/24 01:30 AM
[2024-03-06 01:45] LABS: Creatinine Urine Random 238.1 mg/dl
[2024-03-06] MEDS: HEPARIN SODIUM/DEXTROSE 25,000 UNITS/500 ML BAG IV SCH (01:49)
[2024-03-06 03:28] LABS: Amphetamines+Metham, Urine Neg (Neg); Barbiturates, Urine Neg (Neg); Benzodiazepine, Urine Neg (Neg); Cocaine, Urine Neg (Neg); Fentanyl, Urine Neg (Neg); MDMA (Ecstacy), Urine Neg (Neg); Marijuana, Urine Neg (Neg); Methadone, Urine Neg (Neg); Opiate, Urine Neg (Neg); Phencyclidine, Urine Neg (Neg)
[2024-03-06 05:01] LABS: Basophils # (auto) 0.07 K/uL (0.00-0.20); Basophils % (auto) 0.5 %; Eosinophils # (auto) 0.14 K/uL (0.00-0.50); Hematocrit (blood only) 42.7 % (42.0-52.0); Hemoglobin 12.6 g/dl (14.0-18.0); Immature Granulocytes # (auto) 0.12 K/uL (0.01-0.20); Immature Granulocytes % (auto) 0.9 %; Lymphocytes # (auto) 2.67 K/uL (1.20-3.40); Lymphocytes % (auto) 19.9 %; Mean Corpuscular Hemoglobin 23.6 pg (25.0-34.0); Mean Corpuscular Hgb Conc 29.5 g/dL (32.0-36.0); Mean Corpuscular Volume 80.1 fL (80.0-100.0); Mean Platelet Volume 8.6 fL (9.4-12.4); Monocytes # (auto) 1.11 K/uL (0.11-0.59); Monocytes % (auto) 8.3 %; Neutrophils # (auto) 9.28 K/uL (1.40-6.50); Neutrophils % (auto) 69.4 %; Nucleated RBC # (auto) 0.02 K/uL (0.00-0.12); Nucleated RBC % (auto) 0.1 %; Platelet Count 266 K/uL (130-400); RDW Coefficient of Variation 17.6 % (11.5-14.5); RDW Standard Deviation 49.1 fL (36.4-46.3); Red Blood Count 5.33 M/uL (4.70-6.10); White Blood Count 13.39 K/ul (4.8-10.8)
[2024-03-06] MEDS: AcetylCYSTEINE 10,000 MG in DEXTROSE 5% 1,000 ML IV ONE (05:20)
[2024-03-06] MEDS: HEPARIN SOD 5,000 UNIT/0.5 ML VIAL SQ SCH (05:20)
[2024-03-06 05:25] LABS: Troponin I High Sensitivity 253.5 pg/ml (0-20)
[2024-03-06 05:41] LABS: ANTI-Xa, UFH(UnfractionatedHep < 0.10 IU/ml (0.3-0.7); INR 1.5 (0.9-1.1); Prothrombin Time 15.6 Seconds (9.0-12.0)
[2024-03-06] MEDS: RAPID SEQUENCE INDUCTION BAG ONE (06:06)
[2024-03-06 06:09] LABS: Albumin Level 3.1 gm/dl (3.4-5.0); Bilirubin Direct 0.4 mg/dl (0-0.2); Bilirubin,Total 1.7 mg/dl (0.2-1.0); Calcium 8.3 mg/dl (8.6-10.3); Magnesium 2.1 mg/dl (1.7-2.4); Potassium 3.7 mmol/L (3.5-5.1)
[2024-03-06 06:12] LABS: BUN Creatinine Ratio 28.3 (10-20); Creatinine Clr Calc Pharmacy 150.7 ml/min; Est GFR (African American) 74.8 ml/min; Est GFR (Non-African American) 64.5 ml/min; Phosphorus 2.6 mg/dl (2.5-4.9); Total Protein 5.5 gm/dl (6.0-8.3)
[2024-03-06] MEDS: POTASSIUM CHLORIDE / WTR 20 MEQ/100 ML PLCT IV SCH (06:44)
[2024-03-06] MEDS: ICU ELECTROLYTE REPLACEMENT PROTOCOL SCH (06:44)
--- NOTE | 2024-03-06 07:04 | XRay Report ---
XR chest 1V portable HISTORY: 53 years-old Male line placement and NGT eval acute respiratory failure COMPARISON: 03/05/2024 TECHNIQUE: AP view of the chest FINDINGS: Endotracheal tube overlies the midline, distal tip 2.9 cm superior to the nakita. Right IJ central ve nous catheter distal tip noted in the expected location of the upper SVC. Enteric tube courses below the diaphragm, likely within the stomach. No pneumothorax identified. Cardiomegaly. Progressive worsening of the mixed interstitial and alveola r opacities. Probable small pleural effusions. Bones appear intact. IMPRESSION: 1. Lines and tubes as above. 2. No pneumothorax. 3. Cardiomegaly with mixed interstitial and alveolar opacities suggestive of pulmonary edema. ACT 112: Negative or not required by law. The above report was generated using voice recognition software. It may contain grammatical, syntax o r spelling errors. Electronically signed by: Filippo Torres M.D. 03/06/2024 7:03 AM
--- NOTE | 2024-03-06 07:15 | XRay Report ---
XR chest 1V portable HISTORY: OG tube placement COMPARISON: Chest 03/05/2024. FINDINGS: A short segment of the orogastric tube is identified within the hypopharynx. The tip is not included on this study. Endotracheal tube terminates 4 cm from the nakita. The heart remains enlarge d. There are low lung volumes. Mild pulmonary edema and patchy bilateral airspace opacities persist. Asymmetric left hilar enlargement is again noted. No pneumothorax. IMPRESSION: 1. Orogastric tube appears to be curled within the hypopharynx. Recommend repositioning. 2. Endotracheal tube terminates 4 cm from the nakita. 3. Pulmonary edema and bilateral airspace opacities persist. 4. Asymmetric enlargement of the left hilum. Attention at follow-up recommended to ensure resolution. ACT 112: Negative or not required by law. Electronically signed by: Alek Musa M.D. 03/06/2024 7:13 AM
--- NOTE | 2024-03-06 07:17 | XRay Report ---
KUB HISTORY: NG tube placement COMPARISON: Abdomen and pelvis CT 08/24/2023. FINDINGS: The bowel gas pattern is unremarkable. There are no dilated loops of small bowel to suggest an obstruction. No renal calculi. No ureteral calculi. No pneumoperitoneum or pneumatosis. On the f irst images of the nasogastric tube is curled within the proximal stomach with the tip terminating at the expected location of the distal esophagus. However, on the second image the nasogastric tube tip appears to be located within the proximal stomach. IMPRESSION: On the first images of the nasogastric tube is curled within the proximal stomach with the tip termin ating at the expected location of the distal esophagus. However, on the second image the nasogastric tube tip appears to be located within the proximal stomach. ACT 112: Negative or not required by law. Electronically signed by: Alek Musa M.D. 03/06/2024 7:15 AM
--- NOTE | 2024-03-06 07:37 | Critical Care Progress Note ---
Date of Service March 06, 2024 Assessment & Plan (1) Respiratory failure requiring intubation: (2) Encephalopathy: (3) Morbid obesity: (4) Sepsis: (5) Hypoxia: (6) Acute liver failure: (7) Elevated LFTs: (8) EVA (acute kidney injury): Plan Reason Critically Ill: 53 YOM brought to the EMD for confusion at home, hypoxic/hypercarbic respiratory failure requiring emergent intubation. Likely sepsis with multiple organ dysfunction, acute liver failure, and hypoxia. Intubated sedated. Neuro - Sedation for mechanical ventilation, Encephalopathy CAM ICU: SHEA - Continue with Fentanyl propofol with liver injury- Hx of first degree AV block - Metbolic encephalopathy multifactiorial at this time- ammonia elevated to 80s, hypoxia and hypercarbia - treat underlying causes with ventilatory support - No focal deficits at this time and pupils are equal and reactive making an intracranial process less likely S/p lactulose TSH within normal limit Cardiac - Shock unspecified, HfpEF, LVH - patient presents with shock likely septic vs. right sided failure D-dimer was elevated but Doppler bilateral lower extremity negative Patient when settings are on minimal. Possibility of patient having PE is low. Heparin drip has been discontinued continue with prophylactic heparin BNP 579 --Elevated troponin Likely type II NE Continue to trend Follow-up 2D echo Respiratory -acute hypoxic and hypercarbic respiratory failure, obesity hypoventilation syndrome --VDRF Multifactorial EMELY/OHS with noncompliance HFpEF Continue with ventilatory support Keep RASS -1 Daily sedation holidays and SBT's Chlorhexidine mouthwash --Probability of pulmonary emboli is low HFpEF likely playing a role along with pulmonary hypertension -- Probable EMELY/OHS Would recommend outpatient polysomnography GI - Acute liver failure - Encephalopathy Garde II-III, elevated ammonia level, elevated LFTs, elevated INR 1.5, elevated bili- patient has surgical history of gallbladder removal - DDX at this time: Cirrhosis from fatty liver disease vs. right sided heart failure or Bi-ventricular failure vs reactionary to sepsis -- Complete NAC therapy - ASA and Acetaminophen levels are negative Right upper quadrant ultrasound showed fatty infiltration of liver, postoperative changes of from cholecystectomy, no portal vein thrombosis -Fibrinogen within normal limit Follow-up hepatitis panel Continue to trend LFTs -- Elevated bilirubin T. 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 --Tinea corporis like lesions on the body Topical clotrimazole ointment to be applied Rheumatology - -- History of psoriasis --Prophylaxis VTE: Heparin GI: Pantoprazole Lines: Right IJ, peripheral, Perez catheter Diet: Start tube feeds Plan: In/out: -1.2 L, urine output 2850 AB.37/58/91 on PEEP of 5, 40% Will try to transition midazolam to propofol for sedation Start the patient on Lasix 40 mg daily and try to keep the patient negative at least 1.5-2 L Given nasal MRSA is negative, will DC daptomycin Will add clotrimazole ointment to the patient's lesion it seems like he has tinea corporis Case was discussed with at bedside. I have personally spent 48 minutes of critical care time in the direct management of this patient. This is a life/limb threatening event. This includes time spent evaluating patient, direct bedside care, chart review, placing orders, interpretation of diagnostic studies, discussion with consultants, patient, and family members, as well as other required patient management activities. This time is exclusive of all separately billable procedures, and teaching time and separate from and in addition to any other critical care service time. Thank you for allowing us to participate in the care of this patient. Please refer to my attending physician's documentation for any further recommendations. Admission and Anticipated Discharge Date Admission Date: March 05, 2024 Subjective Patient seen and examined at bedside. No acute distress, no adverse events overnight Patient was on 6 of midazolam and 150 of fentanyl. He was breathing over the vent Saturation was 97% on 40% FiO2 Systolic blood pressure was in the 150s. Moving extremities on touch Review of Systems 2 Review of Systems: All systems reviewed & are unremarkable except as noted in Subjective Physical Exam 2 Physical Exam: Constitutional: No acute distress HEENT: PERRLA Respiratory system: Decreased air entry bilaterally, no wheeze, no rhonchi, positive crackles bilateral lower lobes CVS: S1-S2 positive, no murmurs or gallops, distant heart sounds Abdomen: Soft, nontender, nondistended, positive bowel sounds x4, obese Extremities: +2 pulses bilaterally radialis/ dorsalis pedis, no cyanosis, chronic stasis dermatitis bilateral lower extremities, pitting edema bilateral lower extremity Neuro: RASS -2, breathing over the vent, moving all extremities to touch Psych: Unable to assess G/U: Positive Perez Skin: Patient has excoriation all over the body likely from scratching, he also seems to have ringlike maculopapular patches on the chest as well as groin and lower extremities Lymphatic: no cervical or axillary lymphadenopathy Results & Data Results & Data Vital Signs (Past 12 Hours) Vital Signs Temp Pulse Pulse Resp BP BP Pulse Ox 03/06/24 05:00 78 25 H 96 03/06/24 04:09 36.6 C 74 26 H 94 03/06/24 04:00 03/06/24 03:03 36.7 C 78 26 H 95 03/06/24 02:51 36.7 C 77 26 H 94 03/06/24 02:18 75 27 H 96 03/06/24 01:53 78 27 H 98 03/06/24 01:41 76 03/06/24 01:21 80 26 H 98 03/06/24 00:57 03/05/24 23:00 73 26 H 113/80 98 03/05/24 22:34 80 26 H 96 03/05/24 22:34 37.0 C 82 22 120/81 96 03/05/24 22:33 03/05/24 22:31 03/05/24 22:27 81 22 120/81 96 03/05/24 22:13 03/05/24 21:51 87 22 113/88 94 03/05/24 21:29 89 03/05/24 21:15 90 22 111/78 92 03/05/24 20:45 109/87 03/05/24 20:45 90 22 109/87 92 03/05/24 20:39 90 22 126/86 94 03/05/24 20:24 91 H 22 118/93 93 03/05/24 20:21 90 22 122/92 94 03/05/24 20:18 89 22 132/94 93 07/22/24 20:11 126/96 03/05/24 20:06 138/84 03/05/24 20:00 119/90 03/05/24 19:55 114/69 03/05/24 19:54 91 H 22 98/60 L 92 03/05/24 19:45 70/45 L O2 Del Method O2 Del Method FiO2 03/06/24 05:00 40 03/06/24 04:09 03/06/24 04:00 40 03/06/24 03:03 03/06/24 02:51 03/06/24 02:18 03/06/24 01:53 50 03/06/24 01:41 03/06/24 01:21 03/06/24 00:57 60 03/05/24 23:00 03/05/24 22:34 100 03/05/24 22:34 Mechanical Vent 100 03/05/24 22:33 Mechanical Vent 100 03/05/24 22:31 Mechanical Vent 03/05/24 22:27 03/05/24 22:13 Mechanical Vent 03/05/24 21:51 03/05/24 21:29 03/05/24 21:15 03/05/24 20:45 03/05/24 20:45 03/05/24 20:39 03/05/24 20:24 03/05/24 20:21 03/05/24 20:18 03/05/24 20:11 03/05/24 20:06 03/05/24 20:00 03/05/24 19:55 03/05/24 19:54 03/05/24 19:45 Laboratory Results 03/06/24 04:43 03/06/24 04:43 Coding Level of Care Code 89280 CRITICAL CARE 1ST 30-74M Diagnoses Respiratory failure requiring intubation J96.90 Encephalopathy G93.40 Morbid obesity E66.01 Sepsis A41.9 Hypoxia R09.02 Acute liver failure K72.00 Elevated LFTs R79.89 EVA (acute kidney injury) N17.9
[2024-03-06] MEDS: ICU Protocol for HYPERglycemia SCH (07:52)
[2024-03-06] MEDS: LACTULOSE SYRUP 30 GM/45 ML UDP PO SCH (08:28)
[2024-03-06] MEDS: FUROSEMIDE 40 MG/4 ML VIAL IV SCH (08:28)
[2024-03-06] MEDS ORDERED: LACTULOSE SYRUP 30 GM/45 ML UDP PO SCH (09:00)
--- NOTE | 2024-03-06 09:20 | XRay Report ---
XR chest 1V portable HISTORY: Respiratory failure. COMPARISON: Chest 03/06/2024. FINDINGS: The endotracheal tube terminates 4.5 cm from the nakita. The nasogastric tube terminates be low the diaphragm. The tip is not included on this study. A right jugular central venous catheter ter minates in the expected location of the proximal SVC. No pneumothorax. The cardiac silhouette remains enlarged. There is mild interstitial pulmonary edema and small bilateral pleural effusions. Bibasila r densities persist. IMPRESSION: 1. Satisfactory support line placement. 2. Cardiomegaly with mild interstitial pulmonary edema and small bilateral pleural effusions. This is similar to the prior study. 3. Patchy bibasilar densities also persist. ACT 112: Negative or not required by law. Electronically signed by: Alek Musa M.D. 03/06/2024 9:19 AM
[2024-03-06] MEDS ORDERED: STAT IV Infusion **Titration per Protocol STA (09:59)
[2024-03-06] MEDS ORDERED: LINEZOLID 600 MG/300 ML BAG IV SCH (10:00)
[2024-03-06] MEDS ORDERED: CARBOHYDRATES FOR HYPOGLYCEMIA PO PRN (10:30)
[2024-03-06] MEDS ORDERED: GLUCOSE 10 TAB/TUBE PO PRN (10:30)
[2024-03-06] MEDS ORDERED: DEXTROSE 50% 50 ML SYRINGE IV PRN (10:30)
[2024-03-06] MEDS ORDERED: GLUCAGON FOR INJ 1 MG VIAL IM PRN (10:30)
[2024-03-06] MEDS ORDERED: GLUCOSE 40% GEL 15 GM TUBE PO PRN (10:30)
[2024-03-06] MEDS: TUBE FEEDING WATER FLUSH NG SCH (10:44)
[2024-03-06] MEDS: DOXYCYCLINE HYCLATE 100 MG in D5W MINI-B 100 ML (Q12H) IV SCH (10:44)
[2024-03-06] MEDS: PANTOprazole 40 MG in SYRINGE 0 ML IV SCH (10:44)
[2024-03-06] MEDS: propofoL 1,000 MG/100 ML VIAL IV SCH (10:53)
[2024-03-06] MEDS: CLOTRIMAZOLE 1% CR 15 GM TUBE EXT SCH (10:56)
[2024-03-06] MEDS: INSULIN ASPART PER UNIT CHARGE SC SCH (11:09)
--- NOTE | 2024-03-06 11:59 | Electrocardiogram Report ---
Test Reason : Blood Pressure : / mmHG Vent. Rate : 096 BPM Atrial Rate : 096 BPM P-R Int : 214 ms QRS Dur : 100 ms QT Int : 328 ms P-R-T Axes : 040 270 078 degrees QTc Int : 414 ms Sinus rhythm with 1st degree A-V block Left anterior fascicular block Pulmonary disease pattern Incomplete right bundle branch block Abnormal ECG When compared with ECG of 24-AUG-2023 11:59, No significant change was found Confirmed by Kaleb Gallo ([id number]) on 03/06/2024 11:58:34 AM Referred By: Confirmed By:Kaleb Gallo
--- NOTE | 2024-03-06 12:22 | Hospitalist Progress Note ---
Date of Service March 06, 2024 Assessment & Plan (1) Hypoxia: Plan: Acute hypercarbic/hypoxic respiratory failure which appears to be due to obesity hypoventilation syndrome. He is now on ventilator support. Critical care management with eventual extubation. (2) EVA (acute kidney injury): Plan: Creatinine 1.6 on admission. Now improved to 1.2. Will monitor intake and output and serial labs (3) Elevated LFTs: Plan: Known hepatic steatosis and probably a component of right-sided heart failure. Will follow (4) Morbid obesity: Plan: BMI markedly elevated. Significant weight loss recommended Plan To be determined Admission and Anticipated Discharge Date Admission Date: March 05, 2024 Subjective Intubated and sedated. is at the bedside. Review of Systems 2 Review of Systems: The patient is unable to answer any questions regarding review of systems at this time Physical Exam 2 Physical Exam: General-intubated and sedated. Morbidly obese. No fever HEENT-head atraumatic and normocephalic, ETT and OG in place Neck-no lymphadenopathy or thyromegaly, trachea midline Chest-clear to auscultation anteriorly. No rales or wheezing Cardiac-regular rate and rhythm, normal S1 and S2 Abdomen-normal bowel sounds, no hepatosplenomegaly Extremities-chronic bilateral lower extremity edema below the knees with chronic venous stasis changes Neuro-intubated and sedated. Cannot assess Psych-intubated and sedated. Cannot assess Results & Data Results & Data Vital Signs (Past 12 Hours) Vital Signs Temp Pulse Resp BP Pulse Ox O2 Del Method O2 Del Method 03/06/24 11:35 03/06/24 11:27 79 22 94 03/06/24 11:01 125/91 03/06/24 11:00 36.8 C 82 22 94 03/06/24 10:15 36.7 C 79 24 95 03/06/24 10:02 144/86 H 03/06/24 09:45 36.6 C 76 26 H 94 03/06/24 09:03 36.6 C 76 21 93 03/06/24 09:01 140/89 03/06/24 08:57 36.6 C 77 24 95 03/06/24 08:00 36.6 C 77 22 95 03/06/24 08:00 Mechanical Vent 03/06/24 08:00 03/06/24 08:00 Mechanical Vent 03/06/24 07:34 73 27 H 94 03/06/24 07:09 36.5 C 74 26 H 92 03/06/24 07:00 148/95 H 03/06/24 05:00 78 25 H 96 03/06/24 04:09 36.6 C 74 26 H 94 03/06/24 04:00 03/06/24 03:03 36.7 C 78 26 H 95 03/06/24 02:51 36.7 C 77 26 H 94 03/06/24 02:18 75 27 H 96 03/06/24 01:53 78 27 H 98 03/06/24 01:41 76 03/06/24 01:21 80 26 H 98 03/06/24 00:57 FiO2 03/06/24 11:35 30 03/06/24 11:27 30 03/06/24 11:01 03/06/24 11:00 03/06/24 10:15 03/06/24 10:02 03/06/24 09:45 03/06/24 09:03 03/06/24 09:01 03/06/24 08:57 03/06/24 08:00 03/06/24 08:00 30 03/06/24 08:00 30 03/06/24 08:00 03/06/24 07:34 40 03/06/24 07:09 03/06/24 07:00 03/06/24 05:00 40 03/06/24 04:09 03/06/24 04:00 40 03/06/24 03:03 03/06/24 02:51 03/06/24 02:18 03/06/24 01:53 50 03/06/24 01:41 03/06/24 01:21 03/06/24 00:57 60 Laboratory Results 03/06/24 04:43 03/06/24 04:43 PG Care Time/CCT Total # of Minutes Spent Total Time Spent with Patient: Total time spent is greater than 50% in coordination of care (as documented) at patient's floor/unit and/or counseling patient: Coding Level of Care Code 94645 SUB INP/OBS CARE 3/50MIN Diagnoses Hypoxia R09.02 EVA (acute kidney injury) N17.9 Elevated LFTs R79.89 Morbid obesity E66.01
[2024-03-06 12:48] LABS: Hep B Surface Ag with confirm Negative (Negative)
[2024-03-06 12:54] LABS: Hep C Ab Rflx HepCQuant RNA Negative (Negative)
--- NOTE | 2024-03-06 14:07 | Gastrointestinal Consultation ---
Date of Consultation March 06, 2024 Assessment & Plan (1) Acute liver failure: Suspect related to septic shock or cardiac/ischemic issues. -Obtain Acute hepatitis panel, ASMA, AMA, JIMI to rule out other etiology -Currently on NAC protocol per primary team -Continue LFTs, CMP, PT/INR -Treatment of non-GI issues per primary team -Ensure his bowels are moving--it appears he is on Lactulose per primary team's orders -If decompensating, consider transfer to a liver center though given his multiple medical comorbidities particularly obesity, the opportunity for meaningful interventions are likely to be limited. Supervising Physician Co-Signing Physician Notes I personally saw and examined the patient. I have reviewed the chart and agree with the documentation provided by the ATHLETIC TEAM PHYSICIAN including discussion about the assessment, treatment and plan. Briefly, 53 yo male with PMH of HTN, pre- diabetes, psoriasis, obesity hypoventilation syndrome who presented to the ED in respiratory failure requiring emergent intubation. Patient's reported on admission that he was well until 03/03/24 when he woke up fatigued. He did not eat and slept much of the day. She noted that his speech was not clear and he was exceptionally thirsty. By 03/05/24, they called EMS. In the ED he was tachycardic at 103 bpm, tachypneic with RR of 39, and O2 sats at 64%. He was emergently intubated. Ultrasound with dense fatty liver and normal CBD. Acute liver injury noted in setting of likely chronic liver disease (KLEIN). Suspect shock liver from sepsis vs sirs. Need to r/o autoimmune hepatitis, acute viral hep (sent serologies). No obvious infectious source noted but diffuse skin excoriations. Supportive care as per icu team. will trend lfts and should peak in 48 hours. History of Present Illness Reason for Consultation: Acute liver failure Attending Physician: Jong Ba MD History of Present Illness Patient is a 53 yo male with PMH of HTN, pre-diabetes, psoriasis, obesity hypoventilation syndrome who presented to the ED in respiratory failure requ iring emergent intubation. GI has been consulted due to liver failure. Patient's reported on admission that he was well until 03/03/24 when he woke up fatigued. He did not eat and slept much of the day. She noted that his speech was not clear and he was exceptionally thirsty. He had very little urine output. By 03/05/24, they called EMS. In the ED he was tachycardic at 103 bpm, tachypneic with RR of 39, and O2 sats at 64%. He was emergently intubated. Unfortunately his work-up has been limited by issues surrounding his body habitus as he is 591 lbs and unable to fit in the CT scanner. He was admitted to the ICU and GI has been consulted due to laboratory studies indicated acute liver failure. He does not consume excess alcohol. Ethyl alcohol level negative. Tylenol level negative. He was placed on NAC protocol. US abdomen showed hepatic steatosis, but no other acute concerns were noted. Venous US doppler negative for portal vein thrombosis. Patient has a MELD of 15. Ammonia was 84 on admission and cleared to 39. INR 1.5. T bili 1.7, D bili 0.4, AST 582, ALT 496. There are concerns for an infectious process leading to his sepsis such as skin infection. He is on broad spectrum antibiotics. EKG without acute changes on admission but high sensitivity troponin >250. Ferritin 38.4. D dimer 3910. Allergies Allergy/AdvReac Type Severity Reaction Status Date / Time No Known Allergies Allergy Unverified 03/05/24 19:32 Home Medications Medication Instructions Recorded Confirmed Type talpjfs-wyczzxuuabcdo-acjreehr 250 2 - 4 tab PO Q8 PRN Pain 03/05/24 03/05/24 History mg-250 mg-65 mg tablet (Excedrin Extra Strength) celecoxib 100 mg capsule 100 mg PO BID PRN Pain 03/05/24 03/05/24 History metformin 1,000 mg tablet,extended 1,000 mg PO BID 03/05/24 03/05/24 History release 24hr (osmotic) triamterene 37.5 1 cap PO DAILY 03/05/24 03/05/24 History mg-hydrochlorothiazide 25 mg capsule Patient History Medical History Prediabetes Candidiasis of mouth and esophagus AV block Benign essential hypertension Tinea cruris Psoriasis Pickwickian syndrome Cellulitis of leg, right Morbid obesity with BMI of 60.0-69.9, adult Surgical History History of appendectomy History of cholecystectomy Social History Smoking Status: Current every day smoker Tobacco Type: Cigarettes Cigarettes Per Day: pack per day; Second Hand Exposure: No; Do You Dip or Chew Tobacco: No; Hx Alcohol Use: No (quit 4 yrs ago) Hx Substance Use: No Preferred Language: French Communication Ability: Unable Communication Tools: Physical Gestures Education Technician Required: Yes Beliefs That Will Affect Care: None Current Living Situation: Spouse Other Information That Helps Us Care for You: No Feels Safe at Home: Yes Safety Concerns: Feels Safe At This Time Assistive Devices: Cane and Lift Chair Review of Systems Review of Systems: Unobtainable due to endotracheal tube and Unobtainable due to reduced consciousness Physical Exam Constitutional: + ill appearing and + morbidly obese Respiratory: mechanically ventilated Gastrointestinal (Abdomen): Auscultation significantly diminished due to body habitus; no tenderness on palpation Musculoskeletal: Head/Neck/Chest: normocephalic Psychiatric: Orientation: alert and oriented x 3 Results & Data Vital Signs (Past 12 Hours) Vital Signs Temp Pulse Resp BP Pulse Ox O2 Del Method O2 Del Method 03/06/24 11:35 03/06/24 11:27 79 22 94 03/06/24 11:01 125/91 03/06/24 11:00 36.8 C 82 22 94 03/06/24 10:15 36.7 C 79 24 95 03/06/24 10:02 144/86 H 03/06/24 09:45 36.6 C 76 26 H 94 03/06/24 09:03 36.6 C 76 21 93 03/06/24 09:01 140/89 03/06/24 08:57 36.6 C 77 24 95 03/06/24 08:00 36.6 C 77 22 95 03/06/24 08:00 Mechanical Vent 03/06/24 08:00 03/06/24 08:00 Mechanical Vent 03/06/24 07:34 73 27 H 94 03/06/24 07:09 36.5 C 74 26 H 92 03/06/24 07:00 148/95 H 03/06/24 05:00 78 25 H 96 03/06/24 04:09 36.6 C 74 26 H 94 03/06/24 04:00 03/06/24 03:03 36.7 C 78 26 H 95 03/06/24 02:51 36.7 C 77 26 H 94 03/06/24 02:18 75 27 H 96 03/06/24 01:53 78 27 H 98 FiO2 03/06/24 11:35 30 03/06/24 11:27 30 03/06/24 11:01 03/06/24 11:00 03/06/24 10:15 03/06/24 10:02 03/06/24 09:45 03/06/24 09:03 03/06/24 09:01 03/06/24 08:57 03/06/24 08:00 03/06/24 08:00 30 03/06/24 08:00 30 03/06/24 08:00 03/06/24 07:34 40 03/06/24 07:09 03/06/24 07:00 03/06/24 05:00 40 03/06/24 04:09 03/06/24 04:00 40 03/06/24 03:03 03/06/24 02:51 03/06/24 02:18 03/06/24 01:53 50 PG Care Time/CCT Total # of Minutes Spent Total Time Spent with Patient: Total time spent is greater than 50% in coordination of care (as documented) at patient's floor/unit and/or counseling patient: [place] [address] IN/OBS CONSULT LVL 4,60M Patient Type New History Detailed Exam Detailed Medical Decision Making Moderate Complexity Diagnoses Acute liver failure K72.00
[2024-03-06] MEDS: PEPTAMEN INTENSE VHP 1.0 CAL 1,000 ML BAG OG SCH (15:31)
[2024-03-06] MEDS ORDERED: FUROSEMIDE 40 MG/4 ML VIAL IV SCH (17:00)
--- NOTE | 2024-03-06 17:47 | XCELERA ---
[id number]
[2024-03-06 21:39] LABS: A calco-baum cmplx NotReported Not Detected (NotDetected); Bact fragilis Not Reported Not Detected (NotDetected); Blood Culture Id Panel PCR Panel Negative (NotDetected); C auris Not Reported Not Detected (NotDetected); Calbicans Not Reported Not Detected (NotDetected); Candida glabrata Not Reported Not Detected (NotDetected); Candida krusei Not Reported Not Detected (NotDetected); Cneoformans/gatti Not Reported Not Detected (NotDetected); Cparapsilosis Not Reported Not Detected (NotDetected); E cloacae compx Not Reported Not Detected (NotDetected); Efaecalis Not Reported Not Detected (NotDetected); Efaecium Not Reported Not Detected (NotDetected); Enterobacterales Not Reported Not Detected (NotDetected); Escherichia coli Not Reported Not Detected (NotDetected); H influenzae Not Reported Not Detected (NotDetected); K aerogenes Not Reported Not Detected (NotDetected); Koxytoca Not Reported Not Detected (NotDetected); Kpneumoniae grp Not Reported Not Detected (NotDetected); Lmonocyt Not Reported Not Detected (NotDetected); N meningitidis Not Reported Not Detected (NotDetected); P aeruginosa Not Reported Not Detected (NotDetected); Proteus spp Not Reported Not Detected (NotDetected); Salmonella spp Not Reported Not Detected (NotDetected); Staph lugdunensis Not Reported Not Detected (NotDetected); Staph spp. Not Reported Not Detected (NotDetected); Staphaureus Not Reported Not Detected (NotDetected); Staphepi Not Reported Not Detected (NotDetected); Stenmaltophilia Not Reported Not Detected (NotDetected); Strep agal(GrpB) Not Reported Not Detected (NotDetected); Strep pneum Not Reported Not Detected (NotDetected); Strep pyog (GrpA) Not Reported Not Detected (NotDetected); Strep spp Not Reported Not Detected (NotDetected)
[2024-03-06] MEDS ORDERED: DAPTOMYCIN IV SCH (23:00)
[2024-03-07 04:58] LABS: Albumin Globulin Ratio 1.2 (0.9-2); Albumin Level 2.9 gm/dl (3.4-5.0); BUN Creatinine Ratio 30.2 (10-20); Bilirubin,Total 1.4 mg/dl (0.2-1.0); Calcium 8.6 mg/dl (8.6-10.3); Creatinine Clr Calc Pharmacy 222.6 ml/min; Est GFR (African American) 115.6 ml/min; Est GFR (Non-African American) 99.7 ml/min; Globulin 2.5 gm/dl (2.5-4.0); Magnesium 1.8 mg/dl (1.7-2.4); Phosphorus 2.5 mg/dl (2.5-4.9); Total Protein 5.4 gm/dl (6.0-8.3)
[2024-03-07 05:00] LABS: ANTI-Xa, UFH(UnfractionatedHep < 0.10 IU/ml (0.3-0.7); INR 1.3 (0.9-1.1); Prothrombin Time 13.7 Seconds (9.0-12.0)
[2024-03-07] MEDS: POTASSIUM CHLORIDE 20 MEQ/15 ML UDC PO STA (06:10)
[2024-03-07] MEDS: MAGNESIUM SULFATE / D5W 1 GM/100 ML BAG IV SCH (06:10)
[2024-03-07] MEDS: POTASSIUM CHLORIDE / WTR 20 MEQ/100 ML PLCT IV SCH ×2 (06:14→10:05)
[2024-03-07 06:35] LABS: Basophils # (auto) 0.05 K/uL (0.00-0.20); Basophils % (auto) 0.5 %; Eosinophils # (auto) 0.37 K/uL (0.00-0.50); Eosinophils % (auto) 4.1 %; Hematocrit (blood only) 41.2 % (42.0-52.0); Hemoglobin 12.3 g/dl (14.0-18.0); Immature Granulocytes # (auto) 0.07 K/uL (0.01-0.20); Immature Granulocytes % (auto) 0.8 %; Lymphocytes % (auto) 19.8 %; Mean Corpuscular Hemoglobin 23.6 pg (25.0-34.0); Mean Corpuscular Hgb Conc 29.9 g/dL (32.0-36.0); Mean Corpuscular Volume 78.9 fL (80.0-100.0); Mean Platelet Volume 8.6 fL (9.4-12.4); Monocytes # (auto) 0.85 K/uL (0.11-0.59); Monocytes % (auto) 9.3 %; Neutrophils # (auto) 5.96 K/uL (1.40-6.50); Neutrophils % (auto) 65.5 %; Platelet Count 252 K/uL (130-400); RDW Coefficient of Variation 18.3 % (11.5-14.5); RDW Standard Deviation 49.8 fL (36.4-46.3); Red Blood Count 5.22 M/uL (4.70-6.10)
--- NOTE | 2024-03-07 07:18 | Critical Care Progress Note ---
Date of Service March 07, 2024 Assessment & Plan (1) Respiratory failure requiring intubation: (2) Encephalopathy: (3) Morbid obesity: (4) Sepsis: (5) Hypoxia: (6) Acute liver failure: (7) Elevated LFTs: (8) EVA (acute kidney injury): Plan Reason Critically Ill: 53 YOM brought to the [facility] for confusion at home, hypoxic/hypercarbic respiratory failure requiring emergent intubation. Likely sepsis with multiple organ dysfunction, acute liver failure, and hypoxia. Intubated sedated. 2D echo 03/06/2024: EF 60-65%, flattened septum, moderate concentric LVH, RV moderately dilated with mildly reduced function, RVSP 40-50 mmHg Neuro - Sedation for mechanical ventilation, Encephalopathy CAM ICU: SHEA - Continue with Fentanyl propofol with liver injury- Hx of first degree AV block - Metbolic encephalopathy multifactiorial at this time- ammonia elevated to 80s, hypoxia and hypercarbia - treat underlying causes with ventilatory support - No focal deficits at this time and pupils are equal and reactive making an intracranial process less likely S/p lactulose TSH within normal limit Cardiac - Shock unspecified, HfpEF, LVH - patient presents with shock likely septic vs. right sided failure D-dimer was elevated but Doppler bilateral lower extremity negative Patient when settings are on minimal. Possibility of patient having PE is low. Heparin drip has been discontinued continue with prophylactic heparin BNP 579 --Elevated troponin Likely type II FL Continue to trend 2D echo 03/06/2024: EF 60-65%, flattened septum, moderate concentric LVH, RV moderately dilated with mildly reduced function, RVSP 40-50 mmHg Respiratory -acute hypoxic and hypercarbic respiratory failure, obesity hypoventilation syndrome --VDRF Multifactorial EMELY/OHS with noncompliance HFpEF Continue with ventilatory support Keep RASS -1 Daily sedation holidays and SBT's Chlorhexidine mouthwash --Probability of pulmonary emboli is low HFpEF likely playing a role along with pulmonary hypertension -- Probable EMELY/OHS Would recommend outpatient polysomnography GI -transaminitis --> improving - Encephalopathy Garde II-III, elevated ammonia level, elevated LFTs, elevated INR 1.5, elevated bili- patient has surgical history of gallbladder removal - DDX at this time: Cirrhosis from fatty liver disease vs. right sided heart failure or Bi-ventricular failure vs reactionary to sepsis Status post NAC therapy - ASA and Acetaminophen levels are negative Right upper quadrant ultrasound showed fatty infiltration of liver, postoperative changes of from cholecystectomy, no portal vein thrombosis -Fibrinogen within normal limit Follow-up hepatitis panel Continue to trend LFTs -- Elevated bilirubin T. 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 Continue with pressure support of the patient tolerates. Go down on the sedation as much as possible. There are potassium and magnesium being replaced. Continue with diuretics. Case was discussed with at bedside. I have personally spent 42 minutes of critical care time in the direct management of this patient. This is a life/limb threatening event. This includes time spent evaluating patient, direct bedside care, chart review, placing orders, interpretation of diagnostic studies, discussion with consultants, patient, and family members, as well as other required patient management activities. This time is exclusive of all separately billable procedures, and teaching time and separate from and in addition to any other critical care service time. Thank you for allowing us to participate in the care of this patient. Please refer to my attending physician's documentation for any further recommendations. Admission and Anticipated Discharge Date Admission Date: March 05, 2024 Subjective Patient seen and examined at bedside. No acute distress, no adverse events overnight He was on propofol 20, fentanyl 125 at time of examination. He was on pressure support 20/8, getting tidal volume of 450. He was RASS -1. Opening his eyes but not following any commands Has been afebrile Diuresing well Review of Systems 2 Review of Systems: All systems reviewed & are unremarkable except as noted in Subjective Physical Exam 2 Physical Exam: Constitutional: No acute distress HEENT: PERRLA Respiratory system: Decreased air entry bilaterally, no wheeze, no rhonchi, positive crackles bilateral lower lobes CVS: S1-S2 positive, no murmurs or gallops, distant heart sounds Abdomen: Soft, nontender, nondistended, positive bowel sounds x4, obese Extremities: +2 pulses bilaterally radialis/ dorsalis pedis, no cyanosis, chronic stasis dermatitis bilateral lower extremities, pitting edema bilateral lower extremity Neuro: RASS -1, breathing over the vent, moving all extremities to touch Psych: Unable to assess G/U: Positive Perez Skin: Patient has excoriation all over the body likely from scratching, he also seems to have ringlike maculopapular patches on the chest as well as groin and lower extremities Lymphatic: no cervical or axillary lymphadenopathy Results & Data Results & Data Vital Signs (Past 12 Hours) Vital Signs Temp Pulse Resp BP Pulse Ox O2 Del Method FiO2 03/07/24 06:09 36.5 C 67 20 124/76 91 03/07/24 05:57 36.6 C 66 22 91 03/07/24 05:00 36.6 C 70 16 129/79 91 03/07/24 04:00 36.6 C 69 24 126/74 90 03/07/24 04:00 03/07/24 03:30 68 22 91 30 03/07/24 03:00 36.6 C 69 27 H 125/76 93 03/07/24 02:18 36.6 C 70 22 91 03/07/24 01:03 36.5 C 70 22 126/78 93 03/07/24 00:51 36.5 C 72 22 93 03/07/24 00:06 36.5 C 67 22 119/72 91 03/07/24 00:00 30 03/07/24 00:00 65 03/06/24 23:42 36.5 C 67 22 91 03/06/24 23:00 36.5 C 66 22 95 03/06/24 22:36 65 22 94 30 03/06/24 22:00 36.5 C 66 22 115/78 93 03/06/24 21:21 36.4 C L 64 22 92 03/06/24 21:00 114/75 07/23/24 20:57 36.4 C L 65 22 92 03/06/24 20:12 36.4 C L 68 22 93 03/06/24 19:58 Mechanical Vent 30 03/06/24 19:53 30 03/06/24 19:51 66 22 93 30 Laboratory Results 03/07/24 06:19 03/07/24 04:12 Coding Level of Care Code 30916 CRITICAL CARE 1ST 30-74M Diagnoses Respiratory failure requiring intubation J96.90 Encephalopathy G93.40 Morbid obesity E66.01 Sepsis A41.9 Hypoxia R09.02 Acute liver failure K72.00 Elevated LFTs R79.89 EVA (acute kidney injury) N17.9
[2024-03-07] MEDS: FUROSEMIDE 40 MG/4 ML VIAL IV SCH (08:12)
[2024-03-07] MEDS ORDERED: fentaNYL citrate PF 100 MCG/2 ML VIAL IV ONE (09:33)
[2024-03-07] MEDS ORDERED: ROCURONIUM BROMIDE 10 MG/ML 5 ML VIAL IV ONE (09:33)
--- NOTE | 2024-03-07 11:19 | Gastroenterology Progress Note ---
Date of Service March 07, 2024 Assessment & Plan (1) Acute liver failure: Plan: -Await hepatitis studies & autoimmune liver studies. -Continue to monitor INR, LFTs, metabolic panel. -Primary teams to continue to diagnose/treat primary processes contributing to liver failure. -We will follow peripherally; Do not hesitate to contact us with new or worsening GI concerns. Admission and Anticipated Discharge Date Admission Date: March 05, 2024 Supervising Physician Co-Signing Physician Notes I personally saw and examined the patient. I have reviewed the chart and agree with the documentation provided by the NEWS DEPARTMENT INTERN including discussion about the assessment, treatment and plan. Breathing trial done. His lfts have started to come down. Acute hep serologies and asma pending. Suspect shock liver. Subjective Patient is a 53 yo male with liver failure likely rental representative of shock liver 2/2 sepsis process vs cardiogenic source. Primary team is attempting vent weaning trials at present. From a GI standpoint, his current MELD is 11 with an INR of 1.3, T bili of 1.4, AST 256, ALT 371. 1 blood culture has returned positive for corynebacterium. Hepatitis and autoimmune liver studies pending. Review of Systems Review of Systems: Other (unable to obtain due to respiratory status) Physical Exam Constitutional: + obese Cardiovascular: Rate/Rhythm: regular rate Gastrointestinal (Abdomen): difficult to auscultate due to body habitus Skin: excoriations over skin Results & Data Results & Data Vital Signs (Past 12 Hours) Vital Signs Temp Pulse Resp BP Pulse Ox O2 Del Method FiO2 03/07/24 10:00 168/103 H 03/07/24 10:00 36.6 C 84 16 95 03/07/24 09:03 36.5 C 85 19 92 03/07/24 09:00 174/104 H 03/07/24 09:00 174/104 H 03/07/24 08:57 36.5 C 86 18 91 03/07/24 08:30 36.5 C 94 H 21 89 L 03/07/24 08:15 146/118 H 03/07/24 08:15 146/118 H 03/07/24 08:06 36.6 C 77 15 91 03/07/24 08:05 75 12 92 35 03/07/24 08:01 165/105 H 03/07/24 07:58 66 03/07/24 07:50 74 22 91 30 03/07/24 07:34 Mechanical Vent 30 03/07/24 07:30 30 03/07/24 07:03 36.5 C 69 20 93 Mechanical Vent 03/07/24 07:00 136/85 03/07/24 06:09 36.5 C 67 20 124/76 91 03/07/24 05:57 36.6 C 66 22 91 03/07/24 05:00 36.6 C 70 16 129/79 91 03/07/24 04:00 36.6 C 69 24 126/74 90 03/07/24 04:00 30 03/07/24 03:30 68 22 91 30 03/07/24 03:00 36.6 C 69 27 H 125/76 93 03/07/24 02:18 36.6 C 70 22 91 03/07/24 01:03 36.5 C 70 22 126/78 93 03/07/24 00:51 36.5 C 72 22 93 03/07/24 00:06 36.5 C 67 22 119/72 91 03/07/24 00:00 30 03/07/24 00:00 65 03/06/24 23:42 36.5 C 67 22 91 PG Care Time/CCT Total # of Minutes Spent Total Time Spent with Patient: Total time spent is greater than 50% in coordination of care (as documented) at patient's floor/unit and/or counseling patient: Coding Level of Care Code 06230 SUB INP/OBS CARE 3/50MIN Diagnoses Acute liver failure without hepatic coma K72.00 Hepatic coma status: without hepatic coma (1) Acute liver failure Hepatic coma status: without hepatic coma Qualified Code(s): K72.00 - Acute and subacute hepatic failure without coma
[2024-03-07 14:33] LABS: Hepatitis A Antibody IgM NON-REACTIVE (NON-REACTIVE); Hepatitis B Core Antibody IgM NON-REACTIVE (NON-REACTIVE)
--- NOTE | 2024-03-07 14:38 | Hospitalist Progress Note ---
Date of Service March 07, 2024 Assessment & Plan (1) Hypoxia: Plan: Acute hypercarbic/hypoxic respiratory failure which appears to be due to obesity hypoventilation syndrome. He remains intubated but only on CPAP. Critical care management with eventual extubation. (2) EVA (acute kidney injury): Plan: Creatinine 1.6 on admission. Now normalized. Will monitor intake and output and serial labs (3) Elevated LFTs: Plan: Known hepatic steatosis and right-sided heart failure. Improving. Will follow (4) Morbid obesity: Plan: BMI markedly elevated. Significant weight loss recommended (5) Tinea corporis: Plan: Clotrimazole ointment ordered Plan To be determined Admission and Anticipated Discharge Date Admission Date: March 05, 2024 Subjective The patient remains intubated but is more responsive today. He remains intubated but is on CPAP. Critical care entry noted. Daptomycin has been discontinued. He remains on Rocephin. Cardiac echo reveals moderate LVH with normal ejection fraction, right ventricular enlargement with elevated right ventricular systolic pressures in the 40 to 50 mmHg range. Creatinine normalized to 0.8. Liver function enzymes are downtrending. Review of Systems 2 Review of Systems: The patient is unable to answer any questions regarding review of systems at this time Physical Exam 2 Physical Exam: General-intubated and sedated. Morbidly obese. No fever HEENT-head atraumatic and normocephalic, ETT and OG in place Neck-no lymphadenopathy or thyromegaly, trachea midline Chest-clear to auscultation anteriorly. No rales or wheezing Cardiac-regular rate and rhythm, normal S1 and S2 Abdomen-normal bowel sounds, no hepatosplenomegaly Extremities-chronic bilateral lower extremity edema below the knees with chronic venous stasis changes Neuro-intubated and sedated. Cannot assess Psych-intubated and sedated. Cannot assess Results & Data Results & Data Vital Signs (Past 12 Hours) Vital Signs Temp Pulse Resp BP Pulse Ox O2 Del Method FiO2 03/07/24 12:00 30 03/07/24 11:00 92 H 23 92 30 03/07/24 10:00 168/103 H 03/07/24 10:00 36.6 C 84 16 95 03/07/24 09:03 36.5 C 85 19 92 03/07/24 09:00 174/104 H 03/07/24 09:00 174/104 H 03/07/24 08:57 36.5 C 86 18 91 03/07/24 08:30 36.5 C 94 H 21 89 L 03/07/24 08:15 146/118 H 03/07/24 08:15 146/118 H 03/07/24 08:06 36.6 C 77 15 91 03/07/24 08:05 75 12 92 35 03/07/24 08:01 165/105 H 03/07/24 07:58 66 03/07/24 07:50 74 22 91 30 03/07/24 07:34 Mechanical Vent 30 03/07/24 07:30 30 03/07/24 07:03 36.5 C 69 20 93 Mechanical Vent 03/07/24 07:00 136/85 03/07/24 06:09 36.5 C 67 20 124/76 91 03/07/24 05:57 36.6 C 66 22 91 03/07/24 05:00 36.6 C 70 16 129/79 91 03/07/24 04:00 36.6 C 69 24 126/74 90 03/07/24 04:00 30 03/07/24 03:30 68 22 91 30 03/07/24 03:00 36.6 C 69 27 H 125/76 93 Laboratory Results 03/07/24 06:19 03/07/24 04:12 PG Care Time/CCT Total # of Minutes Spent Total Time Spent with Patient: Total time spent is greater than 50% in coordination of care (as documented) at patient's floor/unit and/or counseling patient: Coding Level of Care Code 83372 SUB INP/OBS CARE 2/35MIN Diagnoses Hypoxia R09.02 EVA (acute kidney injury) N17.9 Elevated LFTs R79.89 Morbid obesity E66.01 Tinea corporis B35.4
[2024-03-07 14:41] LABS: Hepatitis A Antibody IgM NON-REACTIVE (NON-REACTIVE); Hepatitis B Core Antibody IgM NON-REACTIVE (NON-REACTIVE)
[2024-03-07 16:51] LABS: BUN Creatinine Ratio 27.2 (10-20); Calcium 8.7 mg/dl (8.6-10.3); Creatinine Clr Calc Pharmacy 239.4 ml/min; Est GFR (African American) 118.4 ml/min; Est GFR (Non-African American) 102.2 ml/min; Potassium 3.7 mmol/L (3.5-5.1)
[2024-03-07] MEDS: FUROSEMIDE INJ 20 MG/2 ML VIAL IV ONE (18:19)
[2024-03-07] MEDS: RAPID SEQUENCE INDUCTION BAG ONE (19:30)
[2024-03-07] MEDS: PROPOFOL BOLUS FROM BAG IV PRN (19:48)
--- NOTE | 2024-03-07 20:07 | Procedure Note ---
Procedure Note Date of Service March 07, 2024 Note Intubation INTUBATION PROCEDURE NOTE: TUBE EXCHANGE Proceduralist: Zack MACE ([facility] Proceduralist: DR. Berrios Waste Reduction Coordinator: Paco Gilbert time-out was completed verifying correct patient, procedure, site, position ing. Patient was evaluated and required tube exchange secondary to large air leak resulting in cuff deflation to which patient was able to vocalize around and loss of volumes. On inspection patient has chewed through the cuff port and minimal entry to the side of ETT. Sedative agent used: Propofol infusion- bolus 20mg, Fentanyl infusion at 25mcg- bolus 100mcg Paralysis agent used: Rocuronium 80mg Emergent consent was implied given patient was already intubated and on ventilator, needing continued ventilatory support for cor-pulmonale and intolerance of NIPPV. The patient was prepared in the appropriate fashion. He was pre-oxygenated with 100% FIO2 and remained on 8 of PEEP. Sedation was achieved utilizing fentanyl, propofol and Rocuronium , per Dr. Berrios's administration. Upon sedation and paralysis onset, the glide-scope was advanced by Dr. Berrios, once appropriate view was obtained, the ventilator was disconnected, I advanced the bougie and with visualization via the GlideScope passing through the tubes and past the vocal chords, the cuff was ensured to be deflated and the original ETT was removed ensuring proximal and distal control of the bougie. The 7.5 re-inforced ETT was then loaded onto the bougie and advanced, once again under direct visualization watching it pass through the vocal chords without resistance. Bougie was then removed and cuff was inflated. CO2 detection was confirmed and patient was reconnected to the ventilator. Getting appropriate VT as well as capnography. Dr. Berrios was present for the entire procedure as above. [x]Post Intubation Chest X-ray confirms placement- ETT advanced to 26cm at teeth without pneumothorax. Patient tolerated the procedure well and there were no immediate complications. Coding CPT Codes Resuscitation - Resuscitation: 25908 Endotracheal Intubation, emergency ([id number]) [facility] [place] Procedure Codes (Charges) Indication for Procedure Indication for procedure: Emergent replacement of ETT secondary to loss of cuff pressure resulting in loss of VT and insecurity of current ETT. Resuscitation Resuscitation: 66099 Endotracheal Intubation, emergency
[2024-03-08] MEDS: INSULIN ASPART PER UNIT CHARGE SC SCH (00:51)
[2024-03-08 04:19] LABS: iSTAT Allen Test Pass; iSTAT Art Bld Gas pCO2 Correct 48 mmHg (35-46); iSTAT Art Bld Gas pH Corrected 7.511 (7.35-7.45); iSTAT Arterial Blood Gas HCO3 38 meg/L (19-24); iSTAT Arterial Blood Gas pCO2 48 mmHg (35-46); iSTAT Arterial Blood Gas pH 7.51 (7.35-7.45); iSTAT Arterial Blood Gas pO2 58 mmHg (80-95); iSTAT Arterial Blood Gas pO2 C 56; iSTAT Carbon Dioxide > 40 mmol/L (24-31); iSTAT FiO2 50 %; iSTAT Hematocrit 41 % (42-52); iSTAT Hemoglobin 13.9 g/dl (14.0-18.0); iSTAT Potassium 2.9 mmol/L (3.3-5.0); iSTAT Site R Radial; iSTAT Sodium 140 mmol/L (135-144)
[2024-03-08 04:51] LABS: Basophils # (auto) 0.05 K/uL (0.00-0.20); Basophils % (auto) 0.6 %; Eosinophils # (auto) 0.33 K/uL (0.00-0.50); Hematocrit (blood only) 42.4 % (42.0-52.0); Hemoglobin 12.6 g/dl (14.0-18.0); Immature Granulocytes # (auto) 0.05 K/uL (0.01-0.20); Immature Granulocytes % (auto) 0.6 %; Lymphocytes # (auto) 2.01 K/uL (1.20-3.40); Lymphocytes % (auto) 24.1 %; Mean Corpuscular Hgb Conc 29.7 g/dL (32.0-36.0); Mean Corpuscular Volume 80.8 fL (80.0-100.0); Mean Platelet Volume 8.5 fL (9.4-12.4); Monocytes # (auto) 0.99 K/uL (0.11-0.59); Monocytes % (auto) 11.9 %; Neutrophils # (auto) 4.92 K/uL (1.40-6.50); Neutrophils % (auto) 58.8 %; Platelet Count 243 K/uL (130-400); RDW Coefficient of Variation 18.2 % (11.5-14.5); RDW Standard Deviation 50.8 fL (36.4-46.3); Red Blood Count 5.25 M/uL (4.70-6.10); White Blood Count 8.35 K/ul (4.8-10.8)
[2024-03-08 04:59] LABS: Albumin Globulin Ratio 1.1 (0.9-2); BUN Creatinine Ratio 29.4 (10-20); Bilirubin,Total 1.1 mg/dl (0.2-1.0); Calcium 8.7 mg/dl (8.6-10.3); Creatinine Clr Calc Pharmacy 276.9 ml/min; Est GFR (African American) 127.3 ml/min; Est GFR (Non-African American) 109.8 ml/min; Globulin 2.7 gm/dl (2.5-4.0); Magnesium 1.7 mg/dl (1.7-2.4); Phosphorus 3.7 mg/dl (2.5-4.9); Total Protein 5.7 gm/dl (6.0-8.3)
[2024-03-08 05:10] LABS: ANTI-Xa, UFH(UnfractionatedHep < 0.10 IU/ml (0.3-0.7); INR 1.1 (0.9-1.1); Prothrombin Time 12.2 Seconds (9.0-12.0)
[2024-03-08] MEDS: POTASSIUM CHLORIDE / WTR 20 MEQ/100 ML PLCT IV SCH ×4 (05:24→18:01)
[2024-03-08] MEDS: MAGNESIUM SULFATE / D5W 1 GM/100 ML BAG IV SCH (05:25)
--- NOTE | 2024-03-08 06:54 | XRay Report ---
XR chest 1V portable CLINICAL HISTORY: f/u TECHNIQUE: Single frontal radiograph of the chest was obtained. Comparison: Comparison is made to chest radiographs 07/07/2024 FINDINGS: Endotracheal tube terminates 5 cm from the nakita. Enteric tube is well visualized due to underpenetr ation. Cardiomegaly is noted. Prominence and cephalization of the vasculature is seen. Cannot exclude small pleural effusions. IMPRESSION: Limited exam. Satisfactory position of lines and tubes. Cardiomegaly is again seen and small bilatera l pleural effusions and pulmonary vascular congestion cannot be excluded. ACT 112: Negative or not required by law. Electronically signed by: Juan Valdovinos M.D. 03/08/2024 6:52 AM
--- NOTE | 2024-03-08 07:02 | XRay Report ---
XR chest 1V portable CLINICAL HISTORY: f/u TECHNIQUE: Single frontal radiograph of the chest was obtained. Comparison: Comparison is made to chest radiographs 07/08/2024 FINDINGS: Exam is limited by underpenetration. Endotracheal tube is stable. Enteric tube tip and side-port appe ar below the [id number] of the image. Cardiomegaly is noted. There is prominence and cephalization of the vasculature with Leigha B lines seen. Small bilateral pleural effusions cannot be excluded. IMPRESSION: Cardiomegaly and moderate pulmonary edema. Stable lines and tubes. ACT 112: Negative or not required by law. Electronically signed by: Juan Valdovinos M.D. 03/08/2024 7:01 AM
--- NOTE | 2024-03-08 07:47 | Critical Care Progress Note ---
Date of Service March 08, 2024 Assessment & Plan (1) Respiratory failure requiring intubation: (2) Encephalopathy: (3) Morbid obesity: (4) Sepsis: (5) Hypoxia: (6) Acute liver failure: (7) Elevated LFTs: (8) EVA (acute kidney injury): Plan Reason Critically Ill: 53 YOM brought to the [facility] for confusion at home, hypoxic/hypercarbic respiratory failure requiring emergent intubation. Likely sepsis with multiple organ dysfunction, acute liver failure, and hypoxia. Intubated sedated. 2D echo 03/06/2024: EF 60-65%, flattened septum, moderate concentric LVH, RV moderately dilated with mildly reduced function, RVSP 40-50 mmHg Neuro - Sedation for mechanical ventilation, Encephalopathy CAM ICU: SHEA - Continue with Fentanyl propofol with liver injury- Hx of first degree AV block - Metbolic encephalopathy multifactiorial at this time- ammonia elevated to 80s, hypoxia and hypercarbia - treat underlying causes with ventilatory support - No focal deficits at this time and pupils are equal and reactive making an intracranial process less likely S/p lactulose TSH within normal limit Cardiac - Shock unspecified, HfpEF, LVH - patient presents with shock likely septic vs. right sided failure D-dimer was elevated but Doppler bilateral lower extremity negative Patient when settings are on minimal. Possibility of patient having PE is low. Heparin drip has been discontinued continue with prophylactic heparin BNP 579 --Elevated troponin Likely type II CT Continue to trend 2D echo 03/06/2024: EF 60-65%, flattened septum, moderate concentric LVH, RV moderately dilated with mildly reduced function, RVSP 40-50 mmHg Respiratory -acute hypoxic and hypercarbic respiratory failure, obesity hypoventilation syndrome --VDRF Multifactorial EMELY/OHS with noncompliance HFpEF Continue with ventilatory support Keep RASS -1 Daily sedation holidays and SBT's Chlorhexidine mouthwash --Probability of pulmonary emboli is low HFpEF likely playing a role along with pulmonary hypertension -- Probable EMELY/OHS Would recommend outpatient polysomnography GI -transaminitis --> improving - Encephalopathy Garde II-III, elevated ammonia level, elevated LFTs, elevated INR 1.5, elevated bili- patient has surgical history of gallbladder removal - DDX at this time: Cirrhosis from fatty liver disease vs. right sided heart failure or Bi-ventricular failure vs reactionary to sepsis Status post NAC therapy - ASA and Acetaminophen levels are negative Right upper quadrant ultrasound showed fatty infiltration of liver, postoperative changes of from cholecystectomy, no portal vein thrombosis -Fibrinogen within normal limit Hepatitis panel negative for hep B and hep C, follow-up JIMI, antimitochondrial as well as anti-smooth muscle antibody Continue to trend LFTs -- Elevated bilirubin T. 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 I went down on the respiratory to 14 and FiO2 was decreased to 40% Chest x-ray from today does show some worsening compared to yesterday when it comes to vascular congestion. Potassium and magnesium being replaced Titrate down sedation to keep the patient RASS -1 LFTs are trending down. Hepatitis panel is negative Continue with diuretics I have personally spent 38 minutes of critical care time in the direct management of this patient. This is a life/limb threatening event. This includes time spent evaluating patient, direct bedside care, chart review, placing orders, interpretation of diagnostic studies, discussion with consultants, patient, and family members, as well as other required patient management activities. This time is exclusive of all separately billable procedures, and teaching time and separate from and in addition to any other critical care service time. Thank you for allowing us to participate in the care of this patient. Please refer to my attending physician's documentation for any further recommendations. Admission and Anticipated Discharge Date Admission Date: March 05, 2024 Subjective Patient seen and examined at bedside. No acute distress Overnight patient had significant leak from the ET tube which was replaced over bougie Patient was on propofol 25, fentanyl 125 at the time of examination Patient was opening his eyes and moving all extremities, denied any headache. Was following some commands. Review of Systems 2 Review of Systems: All systems reviewed & are unremarkable except as noted in Subjective Physical Exam 2 Physical Exam: Constitutional: No acute distress HEENT: PERRLA Respiratory system: Decreased air entry bilaterally, no wheeze, no rhonchi, positive crackles bilateral lower lobes CVS: S1-S2 positive, no murmurs or gallops, distant heart sounds Abdomen: Soft, nontender, nondistended, positive bowel sounds x4, obese Extremities: +2 pulses bilaterally radialis/ dorsalis pedis, no cyanosis, chronic stasis dermatitis bilateral lower extremities, pitting edema bilateral lower extremity Neuro: RASS -1, breathing over the vent, moving all extremities to touch Psych: Unable to assess G/U: Positive Perez Skin: Patient has excoriation all over the body likely from scratching, he also seems to have ringlike maculopapular patches on the chest as well as groin and lower extremities Skin: no rashes, warm and dry Lymphatic: no cervical or axillary lymphadenopathy Results & Data Results & Data Vital Signs (Past 12 Hours) Vital Signs Temp Pulse Resp BP Pulse Ox O2 Del Method FiO2 03/08/24 07:36 67 18 93 50 03/08/24 05:57 36.5 C 66 22 131/82 93 03/08/24 05:06 36.5 C 68 22 92 03/08/24 05:00 132/86 03/08/24 04:45 36.5 C 70 22 92 03/08/24 04:31 70 22 92 50 03/08/24 04:00 36.6 C 69 22 146/89 H 91 03/08/24 04:00 50 03/08/24 03:15 36.6 C 70 22 92 03/08/24 02:12 36.6 C 70 22 144/86 H 93 03/08/24 01:00 36.6 C 71 22 93 03/08/24 00:12 36.6 C 73 22 145/85 H 93 03/08/24 00:00 50 03/07/24 23:57 36.6 C 74 22 93 03/07/24 23:44 73 03/07/24 23:26 74 22 94 40 03/07/24 23:03 36.6 C 72 22 146/90 H 94 03/07/24 22:57 36.6 C 72 22 94 03/07/24 22:00 36.6 C 70 22 144/91 H 93 03/07/24 21:45 148/93 H 03/07/24 21:45 36.6 C 72 22 148/93 H 94 03/07/24 21:30 146/91 H 03/07/24 21:18 36.7 C 73 18 94 03/07/24 21:12 36.7 C 71 18 95 03/07/24 21:00 145/92 H 03/07/24 20:48 36.8 C 74 18 92 03/07/24 20:45 36.8 C 74 18 152/85 H 92 03/07/24 20:30 152/93 H 03/07/24 20:30 40 03/07/24 20:30 Mechanical Vent 30 03/07/24 20:18 36.8 C 77 18 92 03/07/24 20:15 36.8 C 74 18 148/94 H 93 03/07/24 20:00 36.8 C 78 18 94 03/07/24 19:49 145/92 H Laboratory Results 03/08/24 03:54 03/08/24 03:54 Coding Level of Care Code 25946 CRITICAL CARE 1ST 30-74M Diagnoses Respiratory failure requiring intubation J96.90 Encephalopathy G93.40 Morbid obesity E66.01 Sepsis A41.9 Hypoxia R09.02 Acute liver failure without hepatic coma K72.00 Hepatic coma status: without hepatic coma Elevated LFTs R79.89 EVA (acute kidney injury) N17.9 (6) Acute liver failure Hepatic coma status: without hepatic coma Qualified Code(s): K72.00 - Acute and subacute hepatic failure without coma
[2024-03-08] MEDS ORDERED: DOCUSATE SODIUM 100 MG CAP PO SCH (10:00)
[2024-03-08] MEDS: DOCUSATE SODIUM SYRUP 100 MG/10 ML UDC PO SCH (11:14)
--- NOTE | 2024-03-08 12:01 | Communication Note ---
Date of Service: March 08, 2024 Patient's infectious hepatitis panel negative. LFTs improving to some degree with T bili 1.1, AST 113, ALT 263, Alk phos 93. Await AMA, JIMI, ASMA, however suspect etiology may be related to shock liver. Further treatment per primary team. We will follow peripherally.
--- NOTE | 2024-03-08 12:47 | Hospitalist Progress Note ---
Date of Service March 08, 2024 Assessment & Plan (1) Hypoxia: Plan: Acute hypercarbic/hypoxic respiratory failure which appears to be due to obesity hypoventilation syndrome. He remains intubated. Critical care management with eventual extubation. (2) EVA (acute kidney injury): Plan: Creatinine 1.6 on admission. Now normalized. Will monitor intake and output and serial labs (3) Elevated LFTs: Plan: Known hepatic steatosis and right-sided heart failure. Possibly due to shock liver on admission. Improving. Will follow (4) Morbid obesity: Plan: BMI markedly elevated. Significant weight loss recommended (5) Tinea corporis: Plan: Clotrimazole ointment ordered (6) Hypokalemia: Plan: Due to diuresis. Replacement ordered. Serial labs Plan To be determined Admission and Anticipated Discharge Date Admission Date: March 05, 2024 Subjective Intubated and sedated. LFTs continue to trend downward. Potassium is low today at 3.0. Continued brisk diuresis with intravenous Lasix. Daptomycin has been discontinued due to negative MRSA nasal swab. He remains on Rocephin, day 3. Review of Systems 2 Review of Systems: The patient is unable to answer any questions regarding review of systems at this time Physical Exam 2 Physical Exam: General-intubated and sedated. Morbidly obese. No fever HEENT-head atraumatic and normocephalic, ETT and OG in place Neck-no lymphadenopathy or thyromegaly, trachea midline Chest-clear to auscultation anteriorly. No rales or wheezing Cardiac-regular rate and rhythm, normal S1 and S2 Abdomen-normal bowel sounds, no hepatosplenomegaly Extremities-chronic bilateral lower extremity edema below the knees with chronic venous stasis changes Neuro-intubated and sedated. Cannot assess Psych-intubated and sedated. Cannot assess Results & Data Results & Data Vital Signs (Past 12 Hours) Vital Signs Temp Pulse Resp BP Pulse Ox O2 Del Method FiO2 03/08/24 11:07 71 14 91 40 03/08/24 10:00 137/81 03/08/24 10:00 36.6 C 69 16 92 Mechanical Vent 40 03/08/24 09:00 36.6 C 77 14 90 03/08/24 09:00 150/81 H 03/08/24 08:44 164/85 H 03/08/24 08:42 36.6 C 80 15 92 03/08/24 08:09 36.5 C 66 17 94 Mechanical Vent 40 03/08/24 08:00 40 03/08/24 08:00 66 03/08/24 08:00 133/86 03/08/24 07:36 67 18 93 50 03/08/24 07:24 36.6 C 66 18 93 03/08/24 07:03 36.6 C 67 18 92 03/08/24 07:00 127/81 03/08/24 06:57 36.6 C 66 18 92 03/08/24 06:06 36.5 C 69 22 93 Mechanical Vent 50 03/08/24 05:57 36.5 C 66 22 131/82 93 03/08/24 05:06 36.5 C 68 22 92 03/08/24 05:00 132/86 03/08/24 04:45 36.5 C 70 22 92 03/08/24 04:31 70 22 92 50 03/08/24 04:00 36.6 C 69 22 146/89 H 91 03/08/24 04:00 50 03/08/24 03:15 36.6 C 70 22 92 03/08/24 02:12 36.6 C 70 22 144/86 H 93 03/08/24 01:00 36.6 C 71 22 93 Laboratory Results 03/08/24 03:54 03/08/24 03:54 PG Care Time/CCT Total # of Minutes Spent Total Time Spent with Patient: Total time spent is greater than 50% in coordination of care (as documented) at patient's floor/unit and/or counseling patient: Coding Level of Care Code 54699 SUB INP/OBS CARE 2/35MIN Diagnoses Hypoxia R09.02 EVA (acute kidney injury) N17.9 Elevated LFTs R79.89 Morbid obesity E66.01 Tinea corporis B35.4 Hypokalemia E87.6
[2024-03-08 15:26] LABS: BUN Creatinine Ratio 26.1 (10-20); Calcium 8.7 mg/dl (8.6-10.3); Creatinine Clr Calc Pharmacy 272.9 ml/min; Est GFR (African American) 126.5 ml/min; Est GFR (Non-African American) 109.1 ml/min; Potassium 3.6 mmol/L (3.5-5.1)
[2024-03-08 16:03] LABS: Anti Mitochondrial Antibody NEGATIVE (NEGATIVE); Anti Nuclear Antibody Screen NEGATIVE (NEGATIVE); Smooth Muscle Antibody NEGATIVE (NEGATIVE)
[2024-03-08] MEDS: NOREPINEPHRINE/D5W 4 MG/250 ML IV ONE (17:11)
[2024-03-08] MEDS: FUROSEMIDE 40 MG/4 ML VIAL IV ONE (19:42)
[2024-03-09 04:57] LABS: Basophils # (auto) 0.04 K/uL (0.00-0.20); Basophils % (auto) 0.4 %; Eosinophils # (auto) 0.59 K/uL (0.00-0.50); Eosinophils % (auto) 6.4 %; Hematocrit (blood only) 44.4 % (42.0-52.0); Hemoglobin 12.7 g/dl (14.0-18.0); Immature Granulocytes # (auto) 0.06 K/uL (0.01-0.20); Immature Granulocytes % (auto) 0.7 %; Lymphocytes # (auto) 1.57 K/uL (1.20-3.40); Mean Corpuscular Hemoglobin 23.4 pg (25.0-34.0); Mean Corpuscular Hgb Conc 28.6 g/dL (32.0-36.0); Mean Corpuscular Volume 81.9 fL (80.0-100.0); Mean Platelet Volume 8.4 fL (9.4-12.4); Monocytes # (auto) 1.07 K/uL (0.11-0.59); Monocytes % (auto) 11.6 %; Neutrophils # (auto) 5.88 K/uL (1.40-6.50); Neutrophils % (auto) 63.9 %; Platelet Count 220 K/uL (130-400); RDW Coefficient of Variation 18.5 % (11.5-14.5); RDW Standard Deviation 52.5 fL (36.4-46.3); Red Blood Count 5.42 M/uL (4.70-6.10); White Blood Count 9.21 K/ul (4.8-10.8)
[2024-03-09 05:13] LABS: Albumin Level 3.1 gm/dl (3.4-5.0); BUN Creatinine Ratio 27.4 (10-20); Bilirubin,Total 0.8 mg/dl (0.2-1.0); Calcium 8.8 mg/dl (8.6-10.3); Creatinine Clr Calc Pharmacy 303.7 ml/min; Est GFR (African American) 132.2 ml/min; Est GFR (Non-African American) 114.1 ml/min; Globulin 3.2 gm/dl (2.5-4.0); Magnesium 1.7 mg/dl (1.7-2.4); Phosphorus 4.5 mg/dl (2.5-4.9); Potassium 3.4 mmol/L (3.5-5.1); Total Protein 6.3 gm/dl (6.0-8.3)
[2024-03-09 05:29] LABS: iSTAT Allen Test Pass; iSTAT Art Bld Gas pCO2 Correct 70 mmHg (35-46); iSTAT Art Bld Gas pH Corrected 7.364 (7.35-7.45); iSTAT Arterial Blood Gas HCO3 40 meg/L (19-24); iSTAT Arterial Blood Gas pCO2 71 mmHg (35-46); iSTAT Arterial Blood Gas pH 7.36 (7.35-7.45); iSTAT Arterial Blood Gas pO2 61 mmHg (80-95); iSTAT Arterial Blood Gas pO2 C 60; iSTAT Carbon Dioxide > 40 mmol/L (24-31); iSTAT FiO2 35 %; iSTAT Hematocrit 42 % (42-52); iSTAT Hemoglobin 14.3 g/dl (14.0-18.0); iSTAT Potassium 3.2 mmol/L (3.3-5.0); iSTAT Site L Radial; iSTAT Sodium 139 mmol/L (135-144)
[2024-03-09 05:34] LABS: ANTI-Xa, UFH(UnfractionatedHep < 0.10 IU/ml (0.3-0.7)
[2024-03-09] MEDS: MAGNESIUM SULFATE / D5W 1 GM/100 ML BAG IV SCH (06:09)
[2024-03-09] MEDS: POTASSIUM CHLORIDE / WTR 20 MEQ/100 ML PLCT IV SCH ×2 (06:09→16:57)
--- NOTE | 2024-03-09 07:29 | XRay Report ---
XR chest 1V portable HISTORY: Respiratory failure. COMPARISON: Chest 03/08/2024. FINDINGS: Endotracheal tube terminates 5.3 cm and the n[place]. Nasogastric tube terminates below the d iaphragm. The tip is not included on this study. A right jugular catheter terminates in the SVC. No p neumothorax. The heart remains enlarged. Pulmonary edema with bibasilar densities/effusions persist. This is similar to the prior study. IMPRESSION: 1. Satisfactory support line placement. 2. Cardiomegaly, pulmonary edema, and bibasilar densities/effusions persist ACT 112: Negative or not required by law. Electronically signed by: Alek Musa M.D. 03/09/2024 7:27 AM
--- NOTE | 2024-03-09 07:36 | Critical Care Progress Note ---
Date of Service March 09, 2024 Assessment & Plan (1) Respiratory failure requiring intubation: (2) Encephalopathy: (3) Morbid obesity: (4) Sepsis: (5) Hypoxia: (6) Acute liver failure: (7) Elevated LFTs: (8) EVA (acute kidney injury): Plan Reason Critically Ill: 53 YOM brought to the [facility] for confusion at home, hypoxic/hypercarbic respiratory failure requiring emergent intubation. Likely sepsis with multiple organ dysfunction, acute liver failure, and hypoxia. Intubated sedated. 2D echo 03/06/2024: EF 60-65%, flattened septum, moderate concentric LVH, RV moderately dilated with mildly reduced function, RVSP 40-50 mmHg Neuro - Sedation for mechanical ventilation, Encephalopathy CAM ICU: HSEA - Continue with Fentanyl propofol with liver injury- Hx of first degree AV block - Metbolic encephalopathy multifactiorial at this time- ammonia elevated to 80s, hypoxia and hypercarbia - treat underlying causes with ventilatory support - No focal deficits at this time and pupils are equal and reactive making an intracranial process less likely S/p lactulose TSH within normal limit Cardiac - Shock unspecified, HfpEF, LVH - patient presents with shock likely septic vs. right sided failure D-dimer was elevated but Doppler bilateral lower extremity negative Patient when settings are on minimal. Possibility of patient having PE is low. Heparin drip has been discontinued continue with prophylactic heparin BNP 579 --Elevated troponin Likely type II [place] Continue to trend 2D echo 03/06/2024: EF 60-65%, flattened septum, moderate concentric LVH, RV moderately dilated with mildly reduced function, RVSP 40-50 mmHg Respiratory -acute hypoxic and hypercarbic respiratory failure, obesity hypoventilation syndrome --VDRF Multifactorial EMELY/OHS with noncompliance HFpEF Continue with ventilatory support Keep RASS -1 Daily sedation holidays and SBT's Chlorhexidine mouthwash --Probability of pulmonary emboli is low HFpEF likely playing a role along with pulmonary hypertension -- Probable EMELY/OHS Would recommend outpatient polysomnography GI -transaminitis --> improving Status post NAC therapy - ASA and Acetaminophen levels are negative Right upper quadrant ultrasound showed fatty infiltration of liver, postoperative changes of from cholecystectomy, no portal vein thrombosis -Fibrinogen within normal limit Hepatitis panel negative for hep B and hep C as well as JIMI, antimitochondrial as well as anti-smooth muscle antibody Continue to trend LFTs -- Elevated bilirubin T. 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 Chest x-ray from today does not show any significant change compared to yesterday. Potassium and magnesium being replaced. Trial of extubation today, patient will need BiPAP postextubation. If he will not be compliant with that then the probability of him being reintubated again is high and tracheostomy should be thought of in that instance I have personally spent 37 minutes of critical care time in the direct management of this patient. This is a life/limb threatening event. This includes time spent evaluating patient, direct bedside care, chart review, placing orders, interpretation of diagnostic studies, discussion with consultants, patient, and family members, as well as other required patient management activities. This time is exclusive of all separately billable procedures, and teaching time and separate from and in addition to any other critical care service time. Thank you for allowing us to participate in the care of this patient. Please refer to my attending physician's documentation for any further recommendations. Admission and Anticipated Discharge Date Admission Date: March 05, 2024 Subjective Patient seen and examined at bedside. No acute distress, no adverse events overnight He was saturating 95% on 30% FiO2 He was on propofol 20, fentanyl 100 at the time of examination Smear of stool yesterday. Denies any headache, no chest pain No abdominal pain Review of Systems 2 Review of Systems: All systems reviewed & are unremarkable except as noted in Subjective and Unobtainable due to endotracheal tube Physical Exam 2 Physical Exam: Constitutional: No acute distress HEENT: PERRLA Respiratory system: Decreased air entry bilaterally, no wheeze, no rhonchi, positive crackles bilateral lower lobes CVS: S1-S2 positive, no murmurs or gallops, distant heart sounds Abdomen: Soft, nontender, nondistended, positive bowel sounds x4, obese Extremities: +2 pulses bilaterally radialis/ dorsalis pedis, no cyanosis, chronic stasis dermatitis bilateral lower extremities, pitting edema bilateral lower extremity Neuro: RASS -1, breathing over the vent, moving all extremities to touch Psych: Unable to assess G/U: Positive Perez Skin: Patient has excoriation all over the body likely from scratching, he also seems to have ringlike maculopapular patches on the chest as well as groin and lower extremities Skin: no rashes, warm and dry Lymphatic: no cervical or axillary lymphadenopathy Results & Data Results & Data Vital Signs (Past 12 Hours) Vital Signs Temp Pulse Resp BP Pulse Ox O2 Del Method FiO2 03/09/24 06:00 36.7 C 70 16 132/70 98 Mechanical Vent 35 03/09/24 05:00 36.7 C 72 16 137/75 100 Mechanical Vent 03/09/24 04:12 71 16 95 35 03/09/24 04:00 36.6 C 75 16 143/80 H 98 Mechanical Vent 35 03/09/24 04:00 35 03/09/24 03:00 36.6 C 74 18 145/89 H 96 Mechanical Vent 03/09/24 02:00 36.6 C 74 16 150/80 H 98 Mechanical Vent 03/09/24 01:00 36.7 C 67 16 116/74 93 Mechanical Vent 03/09/24 00:13 65 16 95 35 03/09/24 00:01 108/74 03/09/24 00:00 67 03/09/24 00:00 36.6 C 64 14 90 03/09/24 00:00 36.6 C 67 16 108/74 95 Mechanical Vent 35 03/09/24 00:00 35 03/08/24 23:00 36.6 C 66 16 111/69 96 Mechanical Vent 03/08/24 22:00 36.5 C 63 16 108/71 95 Mechanical Vent 35 03/08/24 21:00 36.5 C 62 16 103/65 93 Mechanical Vent 35 03/08/24 20:00 35 03/08/24 19:49 65 16 95 35 03/08/24 19:36 36.4 C L 66 16 111/65 97 Mechanical Vent 40 Laboratory Results 03/09/24 04:25 03/09/24 04:25 Coding Level of Care Code 11496 CRITICAL CARE 1ST 30-74M Diagnoses Respiratory failure requiring intubation J96.90 Encephalopathy G93.40 Morbid obesity E66.01 Sepsis A41.9 Hypoxia R09.02 Acute liver failure without hepatic coma K72.00 Hepatic coma status: without hepatic coma Elevated LFTs R79.89 EVA (acute kidney injury) N17.9 (6) Acute liver failure Hepatic coma status: without hepatic coma Qualified Code(s): K72.00 - Acute and subacute hepatic failure without coma
[2024-03-09] MEDS ORDERED: Nursing to Pharmacy Communication SCH (08:30)
--- NOTE | 2024-03-09 11:40 | Hospitalist Progress Note ---
Date of Service March 09, 2024 Assessment & Plan (1) Hypoxia: Plan: Acute hypercarbic/hypoxic respiratory failure which appears to be due to obesity hypoventilation syndrome. He was extubated to BiPAP mask earlier this morning, March 09. Appreciate pulmonary medicine consultation and recommendations. If he needs to be reintubated, and appears tracheostomy will need to be pursued. (2) EVA (acute kidney injury): Plan: Creatinine 1.6 on admission. Now normalized and appears stable. Will monitor intake and output and serial labs (3) Elevated LFTs: Plan: Known hepatic steatosis and right-sided heart failure. Possibly due to shock liver on admission. Improving. Will follow (4) Morbid obesity: Plan: BMI markedly elevated. Significant weight loss recommended (5) Tinea corporis: Plan: Clotrimazole ointment ordered (6) Hypokalemia: Plan: Due to diuresis. Replacement ordered. Serial labs Plan To be determined Admission and Anticipated Discharge Date Admission Date: March 05, 2024 Subjective The patient was extubated this morning, March 09 and is now on BiPAP. If he fails and needs to be reintubated, will probably need to pursue tracheostomy placement with continued ventilator support and LTAC placement. Creatinine stable at 0.6. Liver function enzymes continue to improve. Cardiac echo reveals right ventricular enlargement with elevated right ventricular systolic pressures as expected. He has moderate LVH with preserved ejection fraction. Review of Systems 2 Review of Systems: The patient is unable to answer any questions regarding review of systems at this time Physical Exam 2 Physical Exam: General-appears lethargic on BiPAP. He was extubated earlier today, March 09. Morbidly obese. No fever HEENT-head atraumatic and normocephalic, ETT and OG have not been removed. BiPAP is in place n place Neck-no lymphadenopathy or thyromegaly, trachea midline Chest-clear to auscultation anteriorly. No rales or wheezing Cardiac-regular rate and rhythm, normal S1 and S2 Abdomen-normal bowel sounds, no hepatosplenomegaly Extremities-chronic bilateral lower extremity edema below the knees with chronic venous stasis changes Neuro-moving all extremities randomly. No apparent focal deficits Psych-unable to assess Results & Data Results & Data Vital Signs (Past 12 Hours) Vital Signs Temp Pulse Resp BP Pulse Ox O2 Del Method FiO2 03/09/24 08:45 87 33 H 95 40 03/09/24 07:49 Mechanical Vent 35 03/09/24 07:43 69 03/09/24 07:18 36.7 C 68 16 96 03/09/24 07:15 84 16 94 35 03/09/24 07:01 126/72 03/09/24 07:01 126/72 03/09/24 06:39 36.7 C 68 16 94 Mechanical Vent 35 03/09/24 06:01 132/70 03/09/24 06:01 132/70 03/09/24 06:00 36.7 C 69 16 98 03/09/24 06:00 36.7 C 70 16 132/70 98 Mechanical Vent 35 03/09/24 05:00 36.7 C 72 16 137/75 100 Mechanical Vent 03/09/24 04:12 71 16 95 35 03/09/24 04:00 36.6 C 75 16 143/80 H 98 Mechanical Vent 35 03/09/24 04:00 35 03/09/24 03:00 36.6 C 74 18 145/89 H 96 Mechanical Vent 03/09/24 02:00 36.6 C 74 16 150/80 H 98 Mechanical Vent 03/09/24 01:00 36.7 C 67 16 116/74 93 Mechanical Vent 03/09/24 00:13 65 16 95 35 03/09/24 00:01 108/74 03/09/24 00:00 67 03/09/24 00:00 36.6 C 64 14 90 03/09/24 00:00 36.6 C 67 16 108/74 95 Mechanical Vent 35 03/09/24 00:00 35 Laboratory Results 03/09/24 04:25 03/09/24 04:25 PG Care Time/CCT Total # of Minutes Spent Total Time Spent with Patient: Total time spent is greater than 50% in coordination of care (as documented) at patient's floor/unit and/or counseling patient: Coding Level of Care Code 38949 SUB INP/OBS CARE 2/35MIN Diagnoses Hypoxia R09.02 EVA (acute kidney injury) N17.9 Elevated LFTs R79.89 Morbid obesity E66.01 Tinea corporis B35.4 Hypokalemia E87.6
[2024-03-09 16:16] LABS: BUN Creatinine Ratio 28.8 (10-20); Creatinine Clr Calc Pharmacy 363.2 ml/min; Est GFR (African American) 142.1 ml/min; Est GFR (Non-African American) 122.6 ml/min; Potassium 3.9 mmol/L (3.5-5.1)
[2024-03-09] MEDS: FUROSEMIDE 40 MG/4 ML VIAL IV ONE (18:17)
[2024-03-09] MEDS: traZODone HCL 100 MG TAB PO STA (21:57)
[2024-03-10 04:21] LABS: Basophils # (auto) 0.03 K/uL (0.00-0.20); Basophils % (auto) 0.4 %; Eosinophils # (auto) 0.67 K/uL (0.00-0.50); Eosinophils % (auto) 7.9 %; Hematocrit (blood only) 44.3 % (42.0-52.0); Hemoglobin 12.5 g/dl (14.0-18.0); Immature Granulocytes # (auto) 0.04 K/uL (0.01-0.20); Immature Granulocytes % (auto) 0.5 %; Lymphocytes # (auto) 1.76 K/uL (1.20-3.40); Lymphocytes % (auto) 20.7 %; Mean Corpuscular Hemoglobin 23.4 pg (25.0-34.0); Mean Corpuscular Hgb Conc 28.2 g/dL (32.0-36.0); Mean Corpuscular Volume 82.8 fL (80.0-100.0); Mean Platelet Volume 8.6 fL (9.4-12.4); Monocytes # (auto) 0.88 K/uL (0.11-0.59); Monocytes % (auto) 10.4 %; Neutrophils # (auto) 5.12 K/uL (1.40-6.50); Neutrophils % (auto) 60.1 %; Platelet Count 200 K/uL (130-400); RDW Standard Deviation 52.7 fL (36.4-46.3); Red Blood Count 5.35 M/uL (4.70-6.10)
[2024-03-10 04:45] LABS: Alanine Aminotransferase 139 U/L (7-52); Albumin Globulin Ratio 1.1 (0.9-2); Albumin Level 3.2 gm/dl (3.4-5.0); Alkaline Phosphatase 86 U/L (34-104); Anion Gap 4 (3-11); Aspartate Aminotransferase 48 U/L (13-39); BUN Creatinine Ratio 27.3 (10-20); Bilirubin,Total 0.9 mg/dl (0.2-1.0); Blood Urea Nitrogen 12 mg/dl (6-23); Calcium 8.9 mg/dl (8.6-10.3); Carbon Dioxide 43 mmol/L (21-32); Chloride 97 mmol/L (98-107); Creatinine Clr Calc Pharmacy 429.2 ml/min; Est GFR (African American) > 150.0 ml/min; Est GFR (Non-African American) 131.3 ml/min; Glucose 89 mg/dl (70-99(Fasting)); Magnesium 1.6 mg/dl (1.7-2.4); Phosphorus 3.2 mg/dl (2.5-4.9); Potassium 3.8 mmol/L (3.5-5.1); Sodium 144 mmol/L (136-145); Total Protein 6.2 gm/dl (6.0-8.3)
[2024-03-10 04:52] LABS: ANTI-Xa, UFH(UnfractionatedHep < 0.10 IU/ml (0.3-0.7)
[2024-03-10 06:22] LABS: Babesia microti DNA Not Detected (Not Detected)
[2024-03-10] MEDS: MAGNESIUM SULFATE / D5W 1 GM/100 ML BAG IV SCH (06:24)
[2024-03-10] MEDS: POTASSIUM CHLORIDE / WTR 20 MEQ/100 ML PLCT IV SCH (06:24)
[2024-03-10] MEDS: ACETAMINOPHEN 325 MG TAB PO PRN (06:53)
--- NOTE | 2024-03-10 07:44 | Critical Care Progress Note ---
Date of Service March 10, 2024 Assessment & Plan (1) Respiratory failure requiring intubation: (2) Encephalopathy: (3) Morbid obesity: (4) Sepsis: (5) Hypoxia: (6) Acute liver failure: (7) Elevated LFTs: (8) EVA (acute kidney injury): Plan Reason Critically Ill: 53 YOM brought to the [facility] for confusion at home, hypoxic/hypercarbic respiratory failure requiring emergent intubation. Likely sepsis with multiple organ dysfunction, acute liver failure, and hypoxia. Intubated sedated. 2D echo 03/06/2024: EF 60-65%, flattened septum, moderate concentric LVH, RV moderately dilated with mildly reduced function, RVSP 40-50 mmHg Neuro - Sedation for mechanical ventilation, Encephalopathy CAM ICU: Negative -S/p Metbolic encephalopathy Multifactiorial ammonia elevated to 80s, hypoxia and hypercarbia - No focal deficits at this time and pupils are equal and reactive making an intracranial process less likely S/p lactulose TSH within normal limit Cardiac - Shock unspecified, HfpEF, LVH - patient presents with shock likely septic vs. right sided failure D-dimer was elevated but Doppler bilateral lower extremity negative Patient when settings are on minimal. Possibility of patient having PE is low. Heparin drip has been discontinued continue with prophylactic heparin BNP 579 --Elevated troponin Likely type II [place] Continue to trend 2D echo 03/06/2024: EF 60-65%, flattened septum, moderate concentric LVH, RV moderately dilated with mildly reduced function, RVSP 40-50 mmHg Respiratory -acute hypoxic and hypercarbic respiratory failure, obesity hypoventilation syndrome --VDRF --> extubated 03/09/2024 Multifactorial EMELY/OHS with noncompliance HFpEF --Probability of pulmonary emboli is low HFpEF likely playing a role along with pulmonary hypertension -- Probable EMELY/OHS Would recommend outpatient polysomnography GI -transaminitis --> improving Status post NAC therapy - ASA and Acetaminophen levels are negative Right upper quadrant ultrasound showed fatty infiltration of liver, postoperative changes of from cholecystectomy, no portal vein thrombosis -Fibrinogen within normal limit Hepatitis panel negative for hep B and hep C as well as JIMI, antimitochondrial as well as anti-smooth muscle antibody Continue to trend LFTs -- Elevated bilirubin T. 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 Will give the patient a dose of acetazolamide Potassium and magnesium being replaced Patient will benefit from AVAPS machine. Case management has been consulted Patient's significant morbid obesity has resulted in a restrictive thoracic cage abnormality. Because of this patient does not fully expand her lungs for proper ventilation causing recurrent hypercapnic respiratory failure with a PaCo2 of 81. Multiple underlying comorbidities are noted with a weight of 260 kg. Patient would benefit greatly from noninvasive ventilation which would improve lung function and potentially reduce worsening of symptoms. A BiPAP would be ineffective as patient requires a volume targeted mode. Interruption of ventilator support would lead to a decline of health status. NIMV settings should be AVAPS-AE; Breath rate: auto; Inspiratory time:auto; Sigh: off; Tidal Volume: 350-450, PS min: 4-10 PS max: 12-20; EPAP min: 6-10; EPAP max: 10-16; AVAPS rate: 14 during sleep and as needed Get peripheral access and remove right IJ. Hemodynamically stable to be downgraded to medical floor Case was discussed with at bedside Please note the above document was generated using voice recognition software. It may contain grammatical, syntax or spelling errors.Any formal questions or concerns about the content, text or information contained within the body of this dictation should be directly addressed to the provider for clarification. Admission and Anticipated Discharge Date Admission Date: March 05, 2024 Subjective Patient seen and examined at bedside. No acute distress, no adverse events overnight He did use BiPAP overnight. He was saturating 92% at rest. Denied any chest pain, no headache, no nausea vomiting Was asking when he can eat food. Also asking when he can go home. Review of Systems 2 Review of Systems: All systems reviewed & are unremarkable except as noted in Subjective Physical Exam 2 Physical Exam: Constitutional: No acute distress HEENT: PERRLA, EOMI Respiratory system: Decreased air entry bilaterally, no wheeze, no rhonchi, positive crackles bilateral lower lobes CVS: S1-S2 positive, no murmurs or gallops, distant heart sounds Abdomen: Soft, nontender, nondistended, positive bowel sounds x4, obese Extremities: +2 pulses bilaterally radialis/ dorsalis pedis, no cyanosis, chronic stasis dermatitis bilateral lower extremities, pitting edema bilateral lower extremity Neuro: Awake alert oriented x 3 Psych: Normal mood and affect G/U: Positive Perez Skin: Patient has excoriation all over the body likely from scratching, he also seems to have ringlike maculopapular patches on the chest as well as groin and lower extremities Skin: no rashes, warm and dry Lymphatic: no cervical or axillary lymphadenopathy Results & Data Results & Data Vital Signs (Past 12 Hours) Vital Signs Temp Pulse Resp BP Pulse Ox O2 Del Method FiO2 03/10/24 06:11 37.1 C 80 14 148/84 H 98 BiPAP 03/10/24 05:00 37.2 C 82 24 142/79 H 95 BiPAP 03/10/24 04:00 37.3 C 80 23 132/73 92 BiPAP 03/10/24 03:40 80 33 H 95 03/10/24 03:00 37.4 C 82 24 140/88 94 BiPAP 03/10/24 02:00 37.3 C 81 24 154/83 H 98 BiPAP 03/10/24 01:00 37.4 C 84 21 150/90 H 100 Mechanical Vent 03/10/24 00:00 37.3 C 83 22 152/86 H 97 BiPAP 03/09/24 23:01 37.4 C 83 20 146/87 H 98 BiPAP 03/09/24 22:23 BiPAP 30 03/09/24 22:00 83 35 H 98 30 03/09/24 21:00 37.1 C 80 24 153/91 H 97 BiPAP 30 03/09/24 20:00 36.9 C 76 21 150/82 H 97 BiPAP 30 Laboratory Results 03/10/24 04:04 03/10/24 04:04 Coding Level of Care Code 27435 SUB INP/OBS CARE 3/50MIN Diagnoses Respiratory failure requiring intubation J96.90 Encephalopathy G93.40 Morbid obesity E66.01 Sepsis A41.9 Hypoxia R09.02 Acute liver failure without hepatic coma K72.00 Hepatic coma status: without hepatic coma Elevated LFTs R79.89 EVA (acute kidney injury) N17.9 (6) Acute liver failure Hepatic coma status: without hepatic coma Qualified Code(s): K72.00 - Acute and subacute hepatic failure without coma
[2024-03-10] MEDS: acetaZOLAMIDE 250 MG in SYRINGE 0 ML IV STA (09:40)
[2024-03-10] MEDS: LIDOCAINE 1% LOCAL 20 ML VIAL ONE (09:40)
--- NOTE | 2024-03-10 12:10 | Hospitalist Progress Note ---
Date of Service March 10, 2024 Assessment & Plan (1) Hypoxia: Plan: Acute hypercarbic/hypoxic respiratory failure which appears to be due to obesity hypoventilation syndrome. He was extubated to BiPAP mask on March 09 and so far has remained stable. Appreciate pulmonary medicine consultation and recommendations. (2) EVA (acute kidney injury): Plan: Creatinine 1.6 on admission. Now normalized and appears stable. Will monitor intake and output and serial labs (3) Elevated LFTs: Plan: Known hepatic steatosis and right-sided heart failure. Possibly due to shock liver on admission. Improving. Will follow (4) Morbid obesity: Plan: BMI markedly elevated. Significant weight loss recommended (5) Tinea corporis: Plan: Clotrimazole ointment treatment continues. Improving (6) Hypokalemia: Plan: Due to diuresis. Normalized with parenteral replacement. Serial labs Plan He will be transferred out of the ICU today, March 10. OT and PT evaluations will be requested. To be determined Admission and Anticipated Discharge Date Admission Date: March 05, 2024 Subjective Awake and alert and asking for food. He is stable for transfer out of the ICU today, potassium corrected to 3.8. Magnesium slightly low at 1.6 and parenteral replacement ordered. He was extubated on March 09, yesterday, and so far has remained stable. Review of Systems 2 Review of Systems: Constitutional-no fever or chills ENT-no blurred vision, no double vision, no epistaxis, no sore throat Respiratory-no cough, no wheezing, no shortness of breath Cardiac-no palpitations, no chest pain, no syncope GI-no nausea, vomiting, diarrhea, melena, hematochezia -no urinary retention, no urinary incontinence, no dysuria, no hematuria Musculoskeletal-no joint pain, no muscle tenderness Skin-chronic stasis dermatitis changes bilateral lower extremities below the knees Neuro-no isolated weakness, no paresthesia Psych-no depression, no anxiety Physical Exam 2 Physical Exam: General-alert and oriented x3, no fever, no chills. Morbidly obese HEENT-head atraumatic and normocephalic, pupils equal and reactive to light, extraocular muscles intact Neck-no lymphadenopathy or thyromegaly, trachea midline Chest-diminished breath sounds bilaterally from anterior approach. No wheezing. No rales. No rhonchi Cardiac-regular rate and rhythm, normal S1 and S2 Abdomen-normal bowel sounds, no hepatosplenomegaly Skinscattered areas of tinea corporis Extremities-chronic venous stasis changes bilateral lower extremities below the knees. Chronic appearing lower extremity edema Neuro-cranial nerves II through XII intact, motor and sensory function within normal limits, strength symmetrical, no focal deficits Psych-normal affect, normal mood Results & Data Results & Data Vital Signs (Past 12 Hours) Vital Signs Temp Pulse Resp BP Pulse Ox O2 Del Method O2 Flow Rate 03/10/24 10:00 138/80 03/10/24 10:00 37.1 C 85 14 03/10/24 09:21 37.0 C 84 26 H 91 Nasal Cannula 4 03/10/24 09:00 143/90 H 03/10/24 09:00 143/90 H 03/10/24 08:57 37.0 C 84 16 92 03/10/24 08:03 37.1 C 83 95 03/10/24 08:00 118/70 03/10/24 08:00 Nasal Cannula 4 03/10/24 07:57 37.1 C 85 93 03/10/24 07:21 37.2 C 96 03/10/24 07:01 123/65 03/10/24 07:01 123/65 03/10/24 06:11 37.1 C 80 14 148/84 H 98 BiPAP 03/10/24 05:00 37.2 C 82 24 142/79 H 95 BiPAP 03/10/24 04:00 37.3 C 80 23 132/73 92 BiPAP 03/10/24 03:40 80 33 H 95 03/10/24 03:00 37.4 C 82 24 140/88 94 BiPAP 03/10/24 02:00 37.3 C 81 24 154/83 H 98 BiPAP 03/10/24 01:00 37.4 C 84 21 150/90 H 100 Mechanical Vent FiO2 03/10/24 10:00 03/10/24 10:00 03/10/24 09:21 03/10/24 09:00 03/10/24 09:00 03/10/24 08:57 03/10/24 08:03 03/10/24 08:00 03/10/24 08:00 03/10/24 07:57 03/10/24 07:21 03/10/24 07:01 03/10/24 07:01 03/10/24 06:11 30 03/10/24 05:00 30 03/10/24 04:00 30 03/10/24 03:40 30 03/10/24 03:00 30 03/10/24 02:00 30 03/10/24 01:00 Laboratory Results 03/10/24 04:04 03/10/24 04:04 PG Care Time/CCT Total # of Minutes Spent Total Time Spent with Patient: Total time spent is greater than 50% in coordination of care (as documented) at patient's floor/unit and/or counseling patient: Coding Level of Care Code 43326 SUB INP/OBS CARE 3/50MIN Diagnoses Hypoxia R09.02 EVA (acute kidney injury) N17.9 Elevated LFTs R79.89 Morbid obesity E66.01 Tinea corporis B35.4 Hypokalemia E87.6
[2024-03-10] MEDS: traMADol HCL 50 MG TABLET PO PRN (12:30)
[2024-03-10 16:11] LABS: BUN Creatinine Ratio 24.5 (10-20); Calcium 9.2 mg/dl (8.6-10.3); Creatinine Clr Calc Pharmacy 382.4 ml/min; Est GFR (African American) 145.6 ml/min; Est GFR (Non-African American) 125.6 ml/min; Potassium 3.5 mmol/L (3.5-5.1)
[2024-03-10] MEDS: INSULIN ASPART PER UNIT CHARGE SC SCH (17:03)
[2024-03-10] MEDS: MELATONIN 3 MG TAB PO STA (21:33)
[2024-03-11 05:35] LABS: Calcium 8.9 mg/dl (8.6-10.3); Est GFR (African American) 144.4 ml/min; Est GFR (Non-African American) 124.6 ml/min; Magnesium 1.6 mg/dl (1.7-2.4); Phosphorus 3.7 mg/dl (2.5-4.9); Potassium 3.5 mmol/L (3.5-5.1)
[2024-03-11 05:45] LABS: ANTI-Xa, UFH(UnfractionatedHep < 0.10 IU/ml (0.3-0.7)
[2024-03-11] MEDS: MAGNESIUM OXIDE 400 MG TAB PO SCH (09:00)
[2024-03-11] MEDS: POTASSIUM CHLORIDE 10 MEQ TABCR PO SCH (09:01)
[2024-03-11] MEDS ORDERED: methylPREDNISolone 10 mg/mL (For Ped Dose < 7mg) IV SCH (10:45)
[2024-03-11] MEDS: methylPREDNISolone 60 MG in SYRINGE 0 ML IV SCH (11:01)
--- NOTE | 2024-03-11 14:40 | Hospitalist Progress Note ---
Date of Service March 11, 2024 Assessment & Plan (1) Hypoxia: Plan: Acute hypercarbic/hypoxic respiratory failure which appears to be due to obesity hypoventilation syndrome. He was extubated to BiPAP mask on March 09 and now is on nasal cannula. Appreciate pulmonary medicine consultation and recommendations. (2) EVA (acute kidney injury): Plan: Creatinine mildly elevated at 1.6 on admission. Now normalized and appears stable. Will monitor intake and output and serial labs (3) Elevated LFTs: Plan: Known hepatic steatosis and right-sided heart failure. Possibly due to shock liver on admission. Improving. Will follow (4) Morbid obesity: Plan: BMI markedly elevated. Significant weight loss recommended (5) Tinea corporis: Plan: Clotrimazole ointment treatment continues. Improving (6) Hypokalemia: Plan: Due to diuresis. Normalized with parenteral replacement. Serial labs (7) Degenerative arthritis: Plan: Right hip and lumbar spine. Parenteral steroid therapy. Supportive care. Will avoid narcotics due to tenuous respiratory status Plan Continue PT and OT. I am not certain if he will agree to rehab placement if it is deemed necessary. Admission and Anticipated Discharge Date Admission Date: March 05, 2024 Subjective Alert and oriented. He is complaining of lumbar pain and right hip pain from underlying degenerative arthritis. Intravenous Solu-Medrol ordered. Will avoid narcotics due to tenuous respiratory status. Potassium is drifting down to 3.5. Magnesium remains slightly low at 1.6. Oral potassium and oral magnesium ordered. Awaiting OT and PT evaluations. He remains on parenteral Lasix for diuresis. Review of Systems 2 Review of Systems: Constitutional-no fever or chills ENT-no blurred vision, no double vision, no epistaxis, no sore throat Respiratory-no cough, no wheezing, no shortness of breath Cardiac-no palpitations, no chest pain, no syncope GI-no nausea, vomiting, diarrhea, melena, hematochezia -no urinary retention, no urinary incontinence, no dysuria, no hematuria Musculoskeletal-lumbar discomfort and right hip discomfort from underlying arthritis. No muscle tenderness Skin-chronic stasis dermatitis changes bilateral lower extremities below the knees Neuro-no isolated weakness, no paresthesia Psych-no depression, no anxiety Physical Exam 2 Physical Exam: General-alert and oriented x3, no fever, no chills. Morbidly obese HEENT-head atraumatic and normocephalic, pupils equal and reactive to light, extraocular muscles intact Neck-no lymphadenopathy or thyromegaly, trachea midline Chest-diminished breath sounds bilaterally from anterior approach. No wheezing. No rales. No rhonchi Cardiac-regular rate and rhythm, normal S1 and S2 Abdomen-normal bowel sounds, no hepatosplenomegaly Skinscattered areas of tinea corporis Extremities-chronic venous stasis changes bilateral lower extremities below the knees. Chronic appearing lower extremity edema Neuro-cranial nerves II through XII intact, motor and sensory function within normal limits, strength symmetrical, no focal deficits Psych-normal affect, normal mood Results & Data Results & Data Vital Signs (Past 12 Hours) Vital Signs Temp Pulse Resp BP Pulse Ox O2 Del Method O2 Flow Rate 03/11/24 13:50 86 34 H 92 03/11/24 12:03 37.6 C H 87 26 H 93 Nasal Cannula 2 03/11/24 11:05 132/89 03/11/24 11:03 37.5 C 84 25 H 94 03/11/24 10:24 37.6 C H 84 21 96 03/11/24 09:16 126/78 03/11/24 09:09 37.6 C H 83 97 03/11/24 08:06 37.4 C 80 94 Nasal Cannula 4 03/11/24 08:00 Nasal Cannula 4 03/11/24 08:00 Nasal Cannula 03/11/24 07:03 36.9 C 96 03/11/24 03:30 36.8 C 76 20 113/54 L 95 Nasal Cannula FiO2 03/11/24 13:50 30 03/11/24 12:03 03/11/24 11:05 03/11/24 11:03 03/11/24 10:24 03/11/24 09:16 03/11/24 09:09 03/11/24 08:06 03/11/24 08:00 03/11/24 08:00 03/11/24 07:03 03/11/24 03:30 4 Laboratory Results 03/10/24 04:04 03/11/24 04:58 PG Care Time/CCT Total # of Minutes Spent Total Time Spent with Patient: Total time spent is greater than 50% in coordination of care (as documented) at patient's floor/unit and/or counseling patient: Coding Level of Care Code 83183 SUB INP/OBS CARE 50MIN Diagnoses Hypoxia R09.02 EVA (acute kidney injury) N17.9 Elevated LFTs R79.89 Morbid obesity E66.01 Tinea corporis B35.4 Hypokalemia E87.6 Degenerative arthritis M19.90
[2024-03-12 06:49] LABS: Anion Gap 6 (3-11); BUN Creatinine Ratio 37.8 (10-20); Blood Urea Nitrogen 14 mg/dl (6-23); Calcium 9.3 mg/dl (8.6-10.3); Carbon Dioxide 37 mmol/L (21-32); Chloride 98 mmol/L (98-107); Creatinine Clr Calc Pharmacy 510.7 ml/min; Est GFR (African American) > 150.0 ml/min; Glucose 169 mg/dl (70-99(Fasting)); Magnesium 1.7 mg/dl (1.7-2.4); Phosphorus 3.1 mg/dl (2.5-4.9); Potassium 3.7 mmol/L (3.5-5.1); Sodium 141 mmol/L (136-145)
--- NOTE | 2024-03-12 08:18 | Pulmonology Progress Note ---
Date of Service March 12, 2024 Assessment & Plan (1) Respiratory failure requiring intubation: (2) Encephalopathy: (3) Sepsis: (4) Hypoxia: (5) Morbid obesity: (6) Acute liver failure: Hepatic coma status: without hepatic coma Qualified Code(s): K72.00 - Acute and subacute hepatic failure without coma (7) Elevated LFTs: (8) EVA (acute kidney injury): (9) Restrictive lung disease secondary to obesity: Plan IMPRESSION: 53-year-old male initially presented with altered mental status with acute hypoxic and hypercarbic respiratory failure requiring endotracheal intubation in a patient with a history of liver disease. RECOMMENDATIONS: 1. Respiratory failure - Resolved. Currently requiring 3 L nasal cannula. Would encourage out of bed to chair and ambulation as tolerated. Additionally, continue with incentive spirometry. 2. Severe restrictive thoracic disease secondary to morbid obesity with associated hypercarbia - Patient with concerning findings of sleep disordered breathing with CO2 retention felt to be related to the patient's significant obesity and restriction of thoracic cage which limits his ability to ventilate. Orders placed for AVAPS machine moving forward. Orders as follows: Patient's significant morbid obesity has resulted in a restrictive thoracic cage abnormality. Because of this patient does not fully expand her lungs for proper ventilation causing recurrent hypercapnic respiratory failure with a PaCo2 of 81. Multiple underlying comorbidities are noted with a weight of 260 kg. Patient would benefit greatly from noninvasive ventilation which would improve lung function and potentially reduce worsening of symptoms. A BiPAP would be ineffective as patient requires a volume targeted mode. Interruption of ventilator support would lead to a decline of health status. NIMV settings should be AVAPS-AE; Breath rate: auto; Inspiratory time:auto; Sigh: off; Tidal Volume: 350-450, PS min: 4-10 PS max: 12-20; EPAP min: 6-10; E PAP max: 10-16; AVAPS rate: 14 during sleep and as needed. 3. Sepsis - Resolved 4. Hypoxia - Multifactorial in the morbidly obese gentleman with respiratory failure and associated pulmonary edema. Again, titrate down supplemental oxygen as able. Continue with out of bed to chair and mobilize the patient as tolerated. 5. Elevated right-sided heart pressures - Echocardiogram dated 03/06/2024 showed a normal EF of 60 to 65% with flattened septum, moderate concentric LVH, moderately dilated RV and RVSP of 40 to 50 mmHg. Certainly could be in the setting of sleep disordered breathing which has been untreated. Additionally, workup had been unrevealing and felt to be less likely for possible clot burden. Consider follow-up outpatient echocardiogram next 3 to 4 months after patient has recovered. 6. Morbid obesity - Patient would benefit from significant weight reduction and increasing physical activity. Thank you for allowing us to participate in the care of this pleasant patient. Admission and Anticipated Discharge Date Admission Date: March 05, 2024 Subjective Patient was seen and evaluated at bedside. He states that he did not get much sleep last night. He did wear his mask, but states that he had some coughing fits and did have to discontinue using the device. He was able to saturate well with supplemental oxygen and had no change in mental status this morning. Overall, he is feeling better. He is hopeful to get out of bed soon. He offers no new complaints today. Review of Systems Review of Systems: Per HPI unless otherwise noted. Physical Exam Physical Exam: VITAL SIGNS - Vital signs and nursing notes were reviewed. GENERAL - 53-year-old male appearing his stated age who is in no acute distress. Communicates well with provider and answers questions appropriately. SKIN -areas of plaque-like skin lesions noted over the upper extremities. NOSE - Midline and without cyanosis. MOUTH/OROPHARYNX - Without perioral cyanosis. NECK - Neck with FROM. LUNGS - Chest wall evaluation demonstrates normal chest wall A:P diameter. Auscultation reveals diminished breath sounds at the bases. Without wheezes or rhonchi. CARDIAC - RRR with S1/S2. No murmur, rubs, or gallops appreciated. ABDOMEN - Abdominal inspection demonstrates an obese abdomen. BS normoactive all four quadrants. No tenderness, palpable masses, or ascites noted. EXTREMITIES - Nail clubbing not present. No peripheral cyanosis. Moderate pretibial edema present. +3/5 radial palpated throughout. PSYCH - A&Ox3 and cooperates fully with examiner. Pt is very pleasant and interacts well with examiner. Results & Data Results & Data Vital Signs (Past 12 Hours) Vital Signs Temp Pulse Pulse Resp BP BP Pulse Ox 03/12/24 07:37 81 03/12/24 03:52 37.0 C 85 18 148/87 H 92 03/12/24 00:05 36.7 C 104 H 22 161/95 H 95 03/12/24 00:00 03/12/24 00:00 92 H 03/11/24 21:49 03/11/24 21:48 36.7 C 88 16 151/95 H 91 O2 Del Method O2 Flow Rate 03/12/24 07:37 03/12/24 03:52 Nasal Cannula 3 03/12/24 00:05 Nasal Cannula 3 03/12/24 00:00 Nasal Cannula 3 03/12/24 00:00 03/11/24 21:49 Nasal Cannula 3 03/11/24 21:48 Nasal Cannula 3 PG Care Time/CCT Total # of Minutes Spent Total Time Spent with Patient: Total time spent is greater than 50% in coordination of care (as documented) at patient's floor/unit and/or counseling patient: Coding Level of Care Code 93793 SUB INP/OBS CARE 2/35MIN Diagnoses Respiratory failure requiring intubation J96.90 Encephalopathy G93.40 Sepsis A41.9 Hypoxia R09.02 Morbid obesity E66.01 Acute liver failure without hepatic coma K72.00 Hepatic coma status: without hepatic coma Elevated LFTs R79.89 EVA (acute kidney injury) N17.9 Restrictive lung disease secondary to obesity J98.4; E66.9
[2024-03-12] MEDS: MAGNESIUM SULFATE / D5W 1 GM/100 ML BAG IV ONE (12:26)
--- NOTE | 2024-03-12 15:44 | Hospitalist Progress Note ---
Date of Service March 12, 2024 Assessment & Plan (1) Hypoxia: Plan: Acute on chronic hypercarbic/hypoxic respiratory failure which appears to be due to obesity hypoventilation syndrome as well as acute on chronic HFpEF, right sided heart failure He was extubated to BiPAP mask on March 09 and now is on nasal cannula. Appreciate pulmonary medicine consultation and recommendations. Getting qualified for NIV as an outpt Continue IV lasix for diuresis (2) EVA (acute kidney injury): Plan: Creatinine mildly elevated at 1.6 on admission. Now normalized and appears stable. Will monitor intake and output and serial labs (3) Elevated LFTs: Plan: Known hepatic steatosis and right-sided heart failure. Likely due to shock liver on admission. Improving (4) HTN (hypertension), benign: Plan: BPs elevated continue IV diuresis at home on Dyazide add metoprolol (5) Morbid obesity: Plan: BMI markedly elevated. Significant weight loss recommended (6) Tinea corporis: Plan: Clotrimazole ointment treatment continues. Improving add Nystatin powder to skin folds (7) Hypokalemia: Plan: Due to diuresis. Normalized with parenteral replacement. COntinue po replacement 10 meq po bid Serial labs replace magnesium to keep Mag at 2.0 (8) Degenerative arthritis: Plan: Right hip and lumbar spine. Severe OA of hip Parenteral steroid therapy was started--> wean down to 60mg once daily Supportive care. PT/OT Will avoid narcotics due to tenuous respiratory status but tramadol prn is ordered Plan Pericardial effusion-seen on ECHO, small, noncircumferential--> repeat ECHO in short term follow up Myocardial demand ischemia-trop peaked at 235, not ACS DVT proph-SQ heparin Dispo-continued stay on tele, possible dc to [facility] in 1-2 days Admission and Anticipated Discharge Date Admission Date: March 05, 2024 Subjective Pt c/o a headache today. Pain in hip improved. Moving bowels, eating. Is wearing the NIV at night but it does make his mouth dry. Tele with SR 1st degree AVB rates 80-90s Physical Exam Constitutional: WD/WN, vitals as above + morbidly obese Respiratory: normal respiratory effort; no cough Auscultation: lungs clear to auscultation bilaterally and + diminished lung sounds (due to body habitus); no wheezes Cardiovascular: Rate/Rhythm: regular rate and + irregularly irregular Heart Sounds: no murmur Extremities: + edema (lymphedema of legs) Gastrointestinal (Abdomen): normal bowel sounds, soft, nontender, no hepatosplenomegaly Skin: + rash (numerous scaly plaques and patch es all over body) Results & Data Results & Data Vital Signs (Past 12 Hours) Vital Signs Temp Pulse Pulse Resp BP BP Pulse Ox 03/12/24 15:20 93 H 03/12/24 12:06 03/12/24 11:45 03/12/24 11:19 36.7 C 90 21 174/113 H 165/100 H 92 03/12/24 07:42 36.3 C L 109 H 19 168/97 H 90 03/12/24 07:37 81 03/12/24 03:52 37.0 C 85 18 148/87 H 92 Pulse Ox Pulse Ox Pulse Ox Pulse Ox O2 Del Method O2 Flow Rate O2 Flow Rate 03/12/24 15:20 03/12/24 12:06 93 92 89 L 85 L 2 03/12/24 11:45 Nasal Cannula 3 03/12/24 11:19 Nasal Cannula 2 03/12/24 07:42 Nasal Cannula 2 03/12/24 07:37 03/12/24 03:52 Nasal Cannula 3 O2 Flow Rate O2 Flow Rate O2 Flow Rate 03/12/24 15:20 03/12/24 12:06 2 2 2 03/12/24 11:45 03/12/24 11:19 03/12/24 07:42 03/12/24 07:37 03/12/24 03:52 Laboratory Results BMP and magnesium reviewed PG Care Time/CCT Total # of Minutes Spent Total Time Spent with Patient: Total time spent is greater than 50% in coordination of care (as documented) at patient's floor/unit and/or counseling patient: Coding Level of Care Code 53655 SUB INP/OBS CARE 2/35MIN Diagnoses Hypoxia R09.02 EVA (acute kidney injury) N17.9 Elevated LFTs R79.89 HTN (hypertension), benign I10 Morbid obesity E66.01 Tinea corporis B35.4 Hypokalemia E87.6 Degenerative arthritis M19.90
[2024-03-12] MEDS: METOPROLOL TARTRATE 25 MG TAB PO SCH (16:41)
[2024-03-12] MEDS ORDERED: ALBUT/IPRATROP 3MG/0.5MG NEB 3 ML VIAL NEB PRN (18:58)
[2024-03-12] MEDS: ALBUT/IPRATROP 3MG/0.5MG NEB 3 ML VIAL NEB SCH (19:48)
[2024-03-12] MEDS: MELATONIN 3 MG TAB PO PRN (22:01)
[2024-03-13 07:42] LABS: Basophils # (auto) 0.01 K/uL (0.00-0.20); Basophils % (auto) 0.1 %; Hematocrit (blood only) 46.6 % (42.0-52.0); Hemoglobin 13.4 g/dl (14.0-18.0); Immature Granulocytes # (auto) 0.05 K/uL (0.01-0.20); Immature Granulocytes % (auto) 0.6 %; Lymphocytes % (auto) 16.6 %; Mean Corpuscular Hemoglobin 23.5 pg (25.0-34.0); Mean Corpuscular Hgb Conc 28.8 g/dL (32.0-36.0); Mean Corpuscular Volume 81.6 fL (80.0-100.0); Mean Platelet Volume 8.7 fL (9.4-12.4); Monocytes # (auto) 0.98 K/uL (0.11-0.59); Monocytes % (auto) 10.9 %; Neutrophils # (auto) 6.47 K/uL (1.40-6.50); Neutrophils % (auto) 71.8 %; Platelet Count 238 K/uL (130-400); RDW Coefficient of Variation 18.6 % (11.5-14.5); RDW Standard Deviation 51.2 fL (36.4-46.3); Red Blood Count 5.71 M/uL (4.70-6.10); White Blood Count 9.01 K/ul (4.8-10.8)
--- NOTE | 2024-03-13 08:00 | Pulmonology Progress Note ---
Date of Service March 13, 2024 Assessment & Plan (1) Respiratory failure requiring intubation: (2) Encephalopathy: (3) Sepsis: (4) Hypoxia: (5) Morbid obesity: (6) Acute liver failure: Hepatic coma status: without hepatic coma Qualified Code(s): K 72.00 - Acute and subacute hepatic failure without coma (7) Elevated LFTs: (8) EVA (acute kidney injury): (9) Restrictive lung disease secondary to obesity: Plan IMPRESSION: 53-year-old male initially presented with altered mental status with acute hypoxic and hypercarbic respiratory failure requiring endotracheal intubation in a patient with a history of liver disease. He is improved. Handheld spirometry demonstrated likely restrictive physiology consistent with the patient's body habitus RECOMMENDATIONS: 1. Respiratory failure -improving. Currently requiring 3 L nasal cannula. Would encourage out of bed to chair and ambulation as tolerated. Additionally, continue with incentive spirometry. 2. Severe restrictive thoracic disease secondary to morbid obesity with associated hypercarbia - Patient with concerning findings of sleep disordered breathing with CO2 retention felt to be related to the patient's significant obesity and restriction of thoracic cage which limits his ability to ventilate. Orders placed for AVAPS machine moving forward. Orders as follows: Patient's significant morbid obesity has resulted in a restrictive thoracic cage abnormality. Because of this patient does not fully expand her lungs for proper ventilation causing recurrent hypercapnic respiratory failure with a PaCo2 of 81. Multiple underlying comorbidities are noted with a weight of 260 kg. Patient would benefit greatly from noninvasive ventilation which would improve lung function and potentially reduce worsening of symptoms. A BiPAP would be ineffective as patient requires a volume targeted mode. Interruption of ventilator support would lead to a decline of health status. NIMV settings should be AVAPS-AE; Breath rate: auto; Inspiratory time:auto; Sigh: off; Tidal Volume: 350-450, PS min: 4-10 PS max: 12-20; EPAP min: 6-10; EPAP max: 10-16; AVAPS rate: 14 during sleep and as needed. 3. Sepsis - Resolved 4. Hypoxia - Multifactorial in the morbidly obese gentleman with respiratory failure and associated pulmonary edema. Again, titrate down supplemental oxygen as able. Continue with out of bed to chair and mobilize the patient as tolerated. Possible COPD. Outpatient complete pulmonary function testing recommended 5. Elevated right-sided heart pressures - Echocardiogram dated 03/06/2024 showed a normal EF of 60 to 65% with flattened septum, moderate concentric LVH, moderately dilated RV and RVSP of 40 to 50 mmHg. Certainly could be in the setting of sleep disordered breathing which has been untreated. Additionally, workup had been unrevealing and felt to be less likely for possible clot burden. Consider follow-up outpatient echocardiogram next 3 to 4 months after patient has recovered. 6. Morbid obesity - Patient would benefit from significant weight reduction and increasing physical activity. Patient appears to be improving from a respiratory standpoint. He needs weight loss, rehab, and noninvasive positive pressure ventilation nocturnally. Plan to send the patient to [facility]. If outpatient pulmonary follow-up is needed, he can follow-up in the outpatient setting with Dr. Antonio in the pulmonary clinic. Pulmonary will sign off. Call if ?S Admission and Anticipated Discharge Date Admission Date: March 05, 2024 Subjective Patient seen and examined. EMR reviewed. Discussed with bedside nurse. The patient reports that he did not use CPAP last night as he had coughing issues. He feels that the positive airway pressure may have exacerbated his cough. He tried to get up and move around but states she was too weak and he feels that he requires rehab currently. Otherwise he feels like he is doing okay Review of Systems 2 Review of Systems: All systems reviewed & are unremarkable except as noted in Subjective Physical Exam 2 Constitutional: WD/WN, vitals as above + morbidly obese Respiratory: normal respiratory effort; no cough Auscultation: lungs clear to auscultation bilaterally and + diminished lung sounds (due to body habitus); no wheezes Cardiovascular: Rate/Rhythm: regular rate and + irregularly irregular Heart Sounds: no murmur Extremities: + edema (lymphedema of legs) Gastrointestinal (Abdomen): normal bowel sounds, soft, nontender, no hepatosplenomegaly Skin: + rash (numerous scaly plaques and patch es all over body) Results & Data Results & Data Vital Signs (Past 12 Hours) Vital Signs Temp Pulse Pulse Resp BP Pulse Ox O2 Del Method 03/13/24 07:46 36.3 C L 75 19 137/78 96 Nasal Cannula 03/13/24 07:06 73 18 94 Nasal Cannula 03/13/24 02:09 36.6 C 80 20 157/93 H 92 Nasal Cannula 03/13/24 01:00 Nasal Cannula 03/13/24 00:46 85 07/29/24 22:46 36.6 C 20 166/92 H 96 Nasal Cannula 03/12/24 19:57 36.7 C 81 18 164/93 H 95 Nasal Cannula O2 Flow Rate 03/13/24 07:46 2 03/13/24 07:06 3 03/13/24 02:09 03/13/24 01:00 3 03/13/24 00:46 03/12/24 22:46 03/12/24 19:57 3 Laboratory Results 03/13/24 07:24 Diagnostic Findings No new imaging PG Care Time/CCT Total # of Minutes Spent Total Time Spent with Patient: Total time spent is greater than 50% in coordination of care (as documented) at patient's floor/unit and/or counseling patient: Coding Level of Care Code 73087 SUB INP/OBS CARE 2/35MIN Diagnoses Respiratory failure requiring intubation J96.90 Encephalopathy G93.40 Sepsis A41.9 Hypoxia R09.02 Morbid obesity E66.01 Acute liver failure without hepatic coma K72.00 Hepatic coma status: without hepatic coma Elevated LFTs R79.89 EVA (acute kidney injury) N17.9 Restrictive lung disease secondary to obesity J98.4; E66.9
[2024-03-13 08:06] LABS: Alanine Aminotransferase 55 U/L (7-52); Albumin Level 3.5 gm/dl (3.4-5.0); Alkaline Phosphatase 66 U/L (34-104); Anion Gap 3 (3-11); Aspartate Aminotransferase 15 U/L (13-39); BUN Creatinine Ratio 51.3 (10-20); Bilirubin Direct 0.1 mg/dl (0-0.2); Bilirubin,Total 0.6 mg/dl (0.2-1.0); Blood Urea Nitrogen 20 mg/dl (6-23); Calcium 9.1 mg/dl (8.6-10.3); Carbon Dioxide 39 mmol/L (21-32); Chloride 100 mmol/L (98-107); Creatinine Clr Calc Pharmacy 484.3 ml/min; Est GFR (African American) > 150.0 ml/min; Glucose 132 mg/dl (70-99(Fasting)); Potassium 3.7 mmol/L (3.5-5.1); Sodium 142 mmol/L (136-145); Total Protein 6.2 gm/dl (6.0-8.3)
[2024-03-13] MEDS: PANTOprazole 40 MG TAB PO SCH (08:41)
[2024-03-13] MEDS: methylPREDNISolone 60 MG in SYRINGE 0 ML IV SCH (12:00)
--- NOTE | 2024-03-13 15:46 | Hospitalist Progress Note ---
Date of Service March 13, 2024 Assessment & Plan (1) Hypoxia: Plan: Acute on chronic hypercarbic/hypoxic respiratory failure which appears to be due to obesity hypoventilation syndrome as well as acute on chronic HFpEF, right sided heart failure He was extubated to BiPAP mask on March 09 and now is on nasal cannula. Appreciate pulmonary medicine consultation and recommendations. Getting qualified for NIV as an outpt Received IV lasix for diuresis and now convert to Lasix 80 mg p.o. daily Continue supplemental O2 at 2 L nasal cannula during the day (2) EVA (acute kidney injury): Plan: Creatinine mildly elevated at 1.6 on admission. Now normalized and appears stable. Will monitor intake and output and BMP (3) Elevated LFTs: Plan: Known hepatic steatosis and right-sided heart failure. Likely due to shock liver on admission. Improving on check and almost completely back to normal (4) HTN (hypertension), benign: Plan: BPs elevated and was causing a headache on 03/12 Started metoprolol 25 mg p.o. twice daily and blood pressures are improving, headache is resolved Convert IV Lasix to Lasix 80 mg p.o. daily at home on Dyazide-discontinue this May need to up titrate metoprolol (5) Morbid obesity: Plan: BMI markedly elevated. Significant weight loss recommended Recommend evaluation for bariatric surgery (6) Tinea corporis: Plan: Clotrimazole ointment treatment continues. Improving Continue Nystatin powder to skin folds (7) Hypokalemia: Plan: Due to diuresis. Normalized with parenteral replacement. COntinue po replacement 10 meq po bid Serial labs replace magnesium to keep Mag at 2.0 (8) Degenerative arthritis: Plan: Right hip and lumbar spine. Severe OA of hip Parenteral steroid therapy was started--> will discontinue IV steroids now for s everal days Increase tramadol to 100 mg p.o. every 6 hours as needed pain as 50 mg does not help Supportive care. PT/OT Plan Pericardial effusion-seen on ECHO, small, noncircumferential--> repeat ECHO in short term follow up Myocardial demand ischemia-trop peaked at 235, not ACS DVT proph-SQ heparin Dispo-continued stay on tele, likely dc to [facility] tomorrow Admission and Anticipated Discharge Date Admission Date: March 05, 2024 Anticipated date of discharge: 03/14/24 Subjective Patient was unable to wear the BiPAP last night as it made him cough. His wants to know if he could have bariatric surgery in the future. Discussed his care with the dietitian at the bedside. The patient is asking for a lópez and tomato sandwich with mayorosalia. He is also complaining of constipation-he has not moved his bowels in a week since he has been here despite taking lactulose Telemetry with first-degree AV block and rhythm rates in the 60s to 80s Physical Exam Constitutional: WD/WN, vitals as above + morbidly obese Respiratory: normal respiratory effort; no cough Auscultation: lungs clear to auscultation bilaterally and + diminished lung sounds (due to body habitus); no wheezes Cardiovascular: Rate/Rhythm: regular rate and regular rhythm Heart Sounds: no murmur Extremities: + edema (lymphedema of legs, 3+) Gastrointestinal (Abdomen): normal bowel sounds, soft, nontender, no hepatosplenomegaly Skin: + rash (numerous scaly plaques and patch es all over body) Psychiatric: A+Ox3, euthymic affect Results & Data Results & Data Vital Signs (Past 12 Hours) Vital Signs Temp Pulse Pulse Resp BP BP Pulse Ox 03/13/24 14:10 71 03/13/24 11:41 36.5 C 75 20 128/78 95 03/13/24 10:25 85 18 91 03/13/24 08:00 03/13/24 08:00 79 03/13/24 07:46 36.3 C L 75 19 137/78 96 03/13/24 07:06 73 18 94 O2 Del Method O2 Flow Rate 03/13/24 14:10 03/13/24 11:41 Room Air 03/13/24 10:25 Nasal Cannula 3 03/13/24 08:00 Room Air 03/13/24 08:00 03/13/24 07:46 Nasal Cannula 2 03/13/24 07:06 Nasal Cannula 3 Laboratory Results CBC, BMP, LFTs, magnesium reviewed PG Care Time/CCT Total # of Minutes Spent Total Time Spent with Patient: Total time spent is greater than 50% in coordination of care (as documented) at patient's floor/unit and/or counseling patient: Coding Level of Care Code 03544 SUB INP/OBS CARE 2/35MIN Diagnoses Hypoxia R09.02 EVA (acute kidney injury) N17.9 Elevated LFTs R79.89 HTN (hypertension), benign I10 Morbid obesity E66.01 Tinea corporis B35.4 Hypokalemia E87.6 Degenerative arthritis M19.90
[2024-03-13] MEDS ORDERED: bisacodyL 10 MG SUPP PR PRN (15:48)
[2024-03-13] MEDS: MAGNESIUM HYDROXIDE SUSP 30 ML UDC PO ONE (16:44)
[2024-03-13] MEDS: SENNA 8.6 MG TAB PO SCH (18:05)
[2024-03-13] MEDS: traMADol HCL 50 MG TABLET PO PRN (20:37)
[2024-03-14 06:55] LABS: Anion Gap 4 (3-11); BUN Creatinine Ratio 51.2 (10-20); Blood Urea Nitrogen 22 mg/dl (6-23); Calcium 9.1 mg/dl (8.6-10.3); Carbon Dioxide 40 mmol/L (21-32); Chloride 99 mmol/L (98-107); Creatinine Clr Calc Pharmacy 440.3 ml/min; Est GFR (African American) > 150.0 ml/min; Est GFR (Non-African American) 132.6 ml/min; Glucose 101 mg/dl (70-99(Fasting)); Magnesium 1.9 mg/dl (1.7-2.4); Potassium 3.5 mmol/L (3.5-5.1); Sodium 143 mmol/L (136-145)
[2024-03-14] MEDS: FUROSEMIDE 80 MG TAB PO SCH (09:14)
[2024-03-14] MEDS: NYSTATIN POWDER 15GM BTL EXT PRN (09:15)
--- NOTE | 2024-03-14 10:53 | Discharge Summary ---
Discharge Summary Date of Service March 14, 2024 Principal Dx & Hospital Course #1 = Principal Diagnosis (1) Hypoxia: Acute on chronic hypercarbic/hypoxic respiratory failure which appears to be due to obesity hypoventilation syndrome as well as acute on chronic HFpEF, right sided heart failure He was extubated to BiPAP mask on March 09 and now is on nasal cannula at 2 L. Appreciate pulmonary medicine consultation and recommendations. Getting qualified for NIV as an outpt which will be delivered to him after discharge from rehab In the meantime, he should remain on BiPAP at 14/8 with FiO2 30% at bedtime and with naps-of note, he has been refusing this but I encouraged him to wear it as his serum bicarbonate continues to trend upward Received IV lasix for diuresis and now converted to Lasix 80 mg p.o. daily- please check BMP in 3 days at rehab Continue supplemental O2 at 2 L nasal cannula during the day (2) EVA (acute kidney injury): Creatinine mildly elevated at 1.6 on admission. Now normalized and appears st able. (3) Elevated LFTs: Known hepatic steatosis and right-sided heart failure. Likely due to shock liver on admission. Improving on check and almost completely back to normal (4) HTN (hypertension), benign: BPs elevated and was causing a headache on 03/12 Started metoprolol 25 mg p.o. twice daily and blood pressures are improving, headache is resolved Started Lasix 80 mg p.o. daily at home on Dyazide-discontinue this May need to up titrate metoprolol as an outpatient (5) Morbid obesity: BMI markedly elevated. Significant weight loss recommended Recommend evaluation for bariatric surgery after discharge from rehab (6) Tinea corporis: Treated with clotrimazole ointment-improved Continue Nystatin powder to skin folds (7) Hypokalemia: Due to diuresis. Normalized with parenteral replacement. COntinue po replacement 10 meq po bid Follow BMP in 3 days at rehab replace magnesium to keep Mag at 2.0 (8) Degenerative arthritis: Right hip and lumbar spine. Severe OA of hip Parenteral steroid therapy was given for several days with some improvement but caused elevated blood pressures and elevated blood sugars Increased tramadol to 100 mg p.o. every 6 hours as needed pain as 50 mg does not help Supportive care. PT/OT Follow-up with orthopedics after discharge (9) Prediabetes: Hemoglobin A1c 5.9% Resume metformin on discharge Follow as an outpatient Plan Pericardial effusion-seen on ECHO, small, noncircumferential--> repeat ECHO in short term follow up within 1 month Myocardial demand ischemia-trop peaked at 235, not ACS DVT proph-SQ heparin Dispo- dc to [facility] tomorrow Notes For Next Care Provider Please check BMP in 3 days Medication Changes From Visit Added Lasix 80 mg p.o. daily Discontinue Dyazide Added metoprolol 25 Mg p.o. twice daily Added docusate 100 mg p.o. twice daily Added bisacodyl 10 mg HI daily as needed for constipation Added nystatin powder to skin folds daily as needed Added albuterol nebulizers 4 times daily Added Senokot 17.2 mg p.o. daily Added pantoprazole 40 mg p.o. daily Added potassium chloride 10 M EQ p.o. twice daily Added tramadol 100 Mg p.o. every 6 hours as needed pain Admission HPI Per Admitting Provider Landon Godinez is a 53yo male with history of HTN, Pre-DM and Psoriasis as well obesity hypoventilation syndrome presenting from home with three days of feeling unwell. Patient intubated and sedated at time of encounter. History obtained from at bedside. reports that patient was in his usual state of health on Tuesday03/02/24. He ate dinner late and went to sleep. When he woke on the morning of Tuesday03/03/24 he reported feeling tired. He did not eat breakfast, lunch or dinner. His reports that he was very sleepy throughout the day as well as general weakness and was somewhat confused and his speech was not clear. He was very thirsty and drank over 6 bottles of water but had minimal UOP. Patient did not feel well on Tuesday03/04/24 either and slept throughout the day. He did not eat anything. This morning 03/05/24 he woke up and did not feel well again and called EMS. Upon arrival the ER patient tachycardic at 103 bpm, tachypneic with RR of 39 and hypoxic at 64%. He was tried on Oxymask and BiPAP but became increasingly confused and agitated, removing the mask. He was emergently intubated in the ER for acute hypoxic hypercarbic respiratory failure. STAT CT of the head and CTA of the chest were ordered in the ER, however, patient unfortunately exceeds the weight limit for our CT scanner. Dr. Espitia contacted several facilities in attempt to find one that could accommodate the patient's weight and body habitus, however, no facilities have a scanner that is able to accommodate patient's size. ER Course: Ativan 1mg Intubation and ventilation Propofol gtt Fentanyl gtt Discharge Exam Constitutional WD/WN, vitals as above + morbidly obese Respiratory normal respiratory effort; no cough Auscultation: lungs clear to auscultation bilaterally and + diminished lung sounds (due to body habitus); no wheezes Cardiovascular Rate/Rhythm: regular rate and regular rhythm Heart Sounds: no murmur Extremities: + edema (lymphedema of legs, 3+) Gastrointestinal (Abdomen) normal bowel sounds, soft, nontender, no hepatosplenomegaly Skin + rash (numerous scaly plaques and patches all over body) Psychiatric A+Ox3, euthymic affect Updated Medication List Medication Instructions Recorded Confirmed Type axmfpir-[id number] 250 2 - 4 tab PO Q8 PRN Pain 03/05/24 03/05/24 History mg-250 mg-65 mg tablet (Excedrin Extra Strength) celecoxib 100 mg capsule 100 mg PO BID PRN Pain 03/05/24 03/05/24 History metformin 1,000 mg tablet,extended 1,000 mg PO BID 03/05/24 03/05/24 History release 24hr (osmotic) triamterene 37.5 1 cap PO DAILY 03/05/24 03/05/24 History mg-hydrochlorothiazide 25 mg capsule ipratropium 0.5 mg-albuterol 3 mg 3 ml NEB QIDR #90 mL 03/14/24 Rx (2.5 mg base)/3 mL nebulization soln potassium chloride 10 mEq 10 meq PO BID #60 tabs 03/14/24 Rx tablet,extended release(part/cryst) sennosides 8.6 mg tablet (Senokot) 17.2 mg (2 x 8.6 mg) PO QAM #60 03/14/24 Rx tabs tramadol 50 mg tablet 100 mg (2 x 50 mg) PO Q6H PRN 03/14/24 Rx moderate pain (scale score 5-6) #10 tabs Hospital Stay Data Consultations 03/05/24 20:36 ED Decision to Admit Stat 03/05/24 22:31 Consult Lead Technologist In Cytogenetics Routine 03/06/24 01:00 Consult Gastroenterology Routine Diagnostic Imagining Performed 03/05/24 21:17 US liver Stat US portal veins doppler [US duplex portal hepatic veins] Stat US venous doppler LE BI Stat Echocardiogram Pending Results Patient Have Any Pending Studies at Discharge: No Discharge Instructions Given to Patient (Per Discharging Provider) You were admitted with respiratory failure due to morbid obesity and resultant congestive heart failure. You required intubation and mechanical ventilation temporarily and then had improvement. You were given diuretics to get rid of excess fluid and should continue on this. It is very important that you use the noninvasive ventilation at nighttime and with naps is much as possible to improve your oxygen levels and carbon dioxide levels. You should remain on 2 L nasal cannula supplemental oxygen during the day. You were started on new medication to control your high blood pressure. This is called metoprolol. The Lasix will also help lower your blood pressure. You will be discontinued from your home medication of triamterene HCTZ. After you leave the rehab, please follow-up with your new primary care physician as well as the broom stitcher. You may benefit from weight loss surgery in the future and your primary care physician contact you about this. For your hip pain, you can take tramadol as needed and follow-up with your primary care physician. You did have a small amount of fluid around the heart and should have a repeat echocardiogram within 1 month to follow-up on this and you can also be referred to a sheep clipper at that time. For your constipation, please continue on laxatives as directed. Please check a BMP in 3 days. Call your Primary Care doctor if any of the following symptoms or problems start or get worse: * Shortness of breath or difficulty breathing * Wake up at night short of breath * Chest pain * Cough * Swelling of your hands, feet, or legs * More fatigued or tired with your normal activity * Palpitations - sudden fast heart beats WEIGHT * Weigh yourself every morning after using the bathroom. * Use the same scale. * Wear the same amount of clothing. * Write your weight down on a chart. * Call your Primary Care doctor if you gain more than 2-3 pounds in 1-2 days. MEDICATIONS * Use this discharge instruction sheet for medication instructions. * Take your medications at the time your doctor ordered. * Do not skip a dose of your medicines. * If you miss a dose of medicine, take it as soon as possible, but DO NOT DOUBLE A DOSE. * Read your medicine information when you get home. * Know all of the side effects of your medicine. If in doubt, ask your pharmacist * Call your Primary Care doctor's office if you have any side effects. * Be sure all of your doctors know what medicine and herbs you take (including c old, flu, and herbal medicine). Take the following with you to your follow-up doctor appointments: * Weight Chart * Medication List * List of questions Do not drink excessive alcohol, beer or wine. Total Time Total Time Spent Total Time Spent (In Minutes): 45 minutes Coding Level of Care Code 96721 INP/OBS DISCH >30 MIN Diagnoses Hypoxia R09.02 EVA (acute kidney injury) N17.9 Elevated LFTs R79.89 HTN (hypertension), benign I10 Morbid obesity E66.01 Tinea corporis B35.4 Hypokalemia E87.6 Degenerative arthritis M19.90 Prediabetes R73.03
--- NOTE | 2024-03-15 16:32 | Coding Query ---
SEPSIS To promote full compliance with coding requirements relating to patient care, physician participation is requested in all cases of clinical assessment manager uncertainty. Please assist us with the question(s) below: In responding to this query, please exercise your independent professional judgement. The fact that a question is asked does not imply that any particular answer is desired or expected. We appreciate your clarification on this issue. Throughout the medical record, you have clearly documented a localized infection and your patient has clinical evidence of a generalized sepsis or severe sepsis. The term urosepsis is a nonspecific entity and is coded as an UTI. If the patient has sepsis, severe sepsis, from an urinary source or some other source, please clarify in your response below. The medical record reflects the following clinical findings: Pt adm with acute/chronic hypoxic resp failure,OHS, rt heart failure ,acute/chronic diastolic heart failure, shock liver, possible cardiogenic shock.Progress notes initially documented Sepsis.Please check below, if applicable, the phrase that describes the Sepsis . Thanks for your help! Mitchel Keyes [employer] ____ ( )Bacteremia (Nonspecific laboratory finding of bacteria in the blood) Specify Organism ( ) Present on Admission ( ) Not present on admission ( ) Unable to clinically determine ( ) Septicemia (Systemic disease associated with the presence of pathogenic microorganisms in the blood): Specify Organism ( ) Present on Admission ( ) Not present on admission ( ) Unable to clinically determine ( ) Sepsis Specify Organism Specify Associated Condition/Diagnosis ( ) Present on Admission ( ) Not present on admission ( ) Unable to clinically determine ( ) Severe Sepsis (Sepsis associated with acute organ dysfunction) Specify Organism Specify Associated Condition/Diagnosis ( ) Present on Admission ( ) Not present on admission ( ) Unable to clinically determine ( ) Septic Shock (Severe sepsis with acute circulatory failure, unexplained by other causes) ( ) Present on Admission ( ) Not present on admission ( ) Unable to clinically determine ( x) Other, patient has: Sepsis was ruled out MTDD
== END 2024-03-14 12:48 | DRG 208 ==
LOC: ED 17:18 → SUATTDRO 21:17 → 1E 21:17 → 4W 03-11 23:11

== ENCOUNTER 2024-03-27 13:26 | Inpatient (IN) ==
--- NOTE | 2024-03-27 14:22 | Emergency Department Note ---
History of Present Illness General Chief complaint: Fall Stated complaint: FALL Time Seen by Provider: 03/27/24 14:00 History of Present Illness Provider complaint: Fall Maximum Pain Intensity: 10 53-year-old male who is on 2 L oxygen at all times presents emergency department for fall. Patient reports he was trying to get up off the toilet today and then he fell like his knees got weak and he fell. He is complaining of pain in his right hip and pain in his left toe. The patient denies losing consciousness. Patient denies any his head. No headache neck pain chest pain or abdominal pain. The patient is also reporting that he needs a refill on his appointment for the rash on his buttocks since being released from rehab. The patient states that he was supposed to get triple antibiotic cream but cannot get any and is asking for some here. Home Medications Medication Instructions Recorded Confirmed Type celecoxib 100 mg capsule 100 mg PO BID PRN Pain 03/05/24 03/27/24 History ipratropium 0.5 mg-albuterol 3 mg 3 ml NEB QIDR #90 mL 03/14/24 03/27/24 Rx (2.5 mg base)/3 mL nebulization soln melatonin 3 mg tablet 6 mg (2 x 3 mg) PO HS PRN sleep 03/14/24 03/27/24 Rx #60 tabs nystatin 100,000 unit/gram topical 1 applic EXT DAILY PRN Rash under 03/14/24 03/27/24 Rx powder (Nystop) skin folds #15 grams tramadol 50 mg tablet 100 mg (2 x 50 mg) PO Q6H PRN 03/14/24 03/27/24 Rx moderate pain (scale score 5-6) #10 tabs etodolac 200 mg capsule 200 mg PO Q12H PRN pain #14 caps 03/27/24 03/27/24 Rx furosemide 80 mg tablet 80 mg PO .EVERY AFTERNOON 03/27/24 03/27/24 History ipratropium 20 mcg-albuterol 100 1 puff inhalation Q4 03/27/24 03/27/24 History mcg/actuation mist for inhalation (Combivent Respimat) magnesium oxide 400 mg (241.3 mg 400 mg PO AMPM 03/27/24 03/27/24 History magnesium) tablet metformin 500 mg tablet,extended 1,000 mg PO BID 03/27/24 03/27/24 History release 24 hr metoprolol tartrate 25 mg tablet 25 mg PO AMPM 03/27/24 03/27/24 History pantoprazole 40 mg tablet,delayed 40 mg PO DAILYBB 03/27/24 03/27/24 History release potassium chloride 10 mEq 10 meq PO AMPM 03/27/24 03/27/24 History tablet,extended release(part/cryst) Allergies Allergy/AdvReac Type Severity Reaction Status Date / Time No Known Allergies Allergy Unverified 03/05/24 19:32 Past Med/Surg History Problem List (Updated 03/27/24 @ 18:56 by Josselyn Ulrich MD) Physical deconditioning Laceration of foot (Acute) Fall (Acute) HTN (hypertension), benign Restrictive lung disease secondary to obesity Degenerative arthritis Hypokalemia Tinea corporis Hyperkalemia (Acute) EVA (acute kidney injury) (Acute) Elevated LFTs (Acute) Acute liver failure Morbid obesity (Acute) Encephalopathy Respiratory failure requiring intubation Obesity Sinus pause EMELY (obstructive sleep apnea) Acute hypercapnic respiratory failure (Acute) Sepsis (Acute) Leanne's gangrene (Acute) Hypoxia (Acute) SOB (shortness of breath) Medical History Prediabetes Candidiasis of mouth and esophagus AV block Benign essential hypertension Tinea cruris Psoriasis Pickwickian syndrome Cellulitis of leg, right Morbid obesity with BMI of 60.0-69.9, adult Surgical History History of appendectomy History of cholecystectomy Social History Smoking Status: Former smoker Tobacco Type: Cigarettes Cigarettes Per Day: pack per day; Second Hand Exposure: No; Do You Dip or Chew Tobacco: No; Hx Alcohol Use: No (quit 4 yrs ago) Hx Substance Use: No Preferred Language: Kazakh Communication Ability: Unable Director Prospect Required: Yes Beliefs That Will Affect Care: None Current Living Situation: Spouse Feels Safe at Home: Yes Assistive Devices: Cane and Lift Chair Physical Exam Vital Signs Vital Signs - 24 hr 03/27/24 13:34 03/27/24 13:42 03/27/24 14:00 Temperature 36.8 C 36.8 C Temperature Source Oral Oral Pulse Rate 90 88 Pulse Rate [Apical] 88 Respiratory Rate 22 17 Blood Pressure 112/80 Blood Pressure [Right Arm] 112/80 Blood Pressure Mean 90 Blood Pressure Mean [Right Arm] 90 Blood Pressure Position Semi-fowlers Blood Pressure Position [Right Arm] Semi-fowlers Pulse Oximetry 93 92 Oxygen Delivery Method Nasal Cannula Nasal Cannula Oxygen Flow Rate 2 2 Sepsis Recent Fever Within 48 Hours No Sepsis New/Unexplained Change in Mental Status No Sepsis Action Taken by Nursing No Action Required 03/27/24 15:33 Temperature Temperature Source Pulse Rate Pulse Rate [Apical] 87 Respiratory Rate 20 Blood Pressure Blood Pressure [Right Arm] Blood Pressure Mean Blood Pressure Mean [Right Arm] Blood Pressure Position Blood Pressure Position [Right Arm] Pulse Oximetry 94 Oxygen Delivery Method Nasal Cannula Oxygen Flow Rate Sepsis Recent Fever Within 48 Hours Sepsis New/Unexplained Change in Mental Status Sepsis Action Taken by Nursing Physical Exam GENERAL: He is oriented to person, place, and time. He appears well-developed and well-nourished. He does not appear distressed. HENT: Exam performed. - Head: Normocephalic and atraumatic. - Right Ear: External ear normal. No mastoid erythema. Santoyo sign negative. - Left Ear: External ear normal. No mastoid erythema. Santoyo sign negative. NECK: Normal range of motion. Neck supple. No JVD present. No spinous process tenderness present. CV: Normal rate, regular rhythm, normal heart sounds and intact distal pulses. There is no peripheral edema. Palpable radial pulses bue. PULM/CHEST: Effort normal and breath sounds normal. No respiratory distress. No stridor. He has no wheezes. He has no rales. ABD: The abdomen is soft and morbidly obese. There is no tenderness. There is no rebound, no guarding MUSC/SKEL: Pelvis stable. NEURO: He is alert and oriented to person, place, and time. He has normal strength. No cranial nerve deficit or sensory deficit. Coordination and gait normal. SKIN: Psoriasis plaques over the bilateral upper and lower extremities as well as patient's anterior chest wall and anterior abdominal wall and buttocks. There is a small 2 cm laceration over the patient's left great toe. Course Course 1400: The patient was evaluated in room C10. A complete history and physical exam was performed 1630: Vital signs stable. X-ray showed no acute fractures or dislocations. Wounds were closed by GINA Paula, see his procedure note. Patient be discharged with follow-up PCP. 1730: At time of discharge patient and state that he is too weak to be discharged home and they are requesting placement back into [facility] rehab. Case management met with the patient and they stated that [facility] is currently fall and recommend admission until the patient can be placed at [facility]. And any hospitalist team will be contacted. 1745: Discussed the case with Dr. Robertson who states he will evaluate the patient for admission. Administered Medications Discontinued Medications Acetaminophen (Acetaminophen 500 Mg Tab) 1,000 mg PO NOW STA Stop: 03/27/24 18:43 Last Admin: 03/27/24 19:35 Dose: 1,000 mg Documented By: SHREE Ketorolac Tromethamine (Ketorolac Tromethamine 60 Mg/2 Ml Vial) 15 mg IM NOW STA Stop: 03/27/24 16:47 Last Admin: 03/27/24 16:56 Dose: 15 mg Documented By: SHREE Lidocaine HCl (Lidocaine 1% Local 20 Ml Vial) 20 ml INFIL NOW ONE Stop: 03/27/24 15:45 Last Admin: 03/27/24 16:20 Dose: 20 ml Documented By: SHREE Medical Decision Making Medical Records Attestation: I reviewed the patient's medical records. External medical records reviewed. Patient was admitted to this facility from March 05 to March 15, 2024 for respiratory failure. He was discharged with 2 L nasal cannula. Laboratory Data 03/27/24 19:54 03/27/24 19:54 Imaging Data Radiologist's Impression: Foot X-Ray 03/27/24 14:13 XR foot LT min 3V routine HISTORY: 53 years-old Male fall acute left foot pain status post COMPARISON: None TECHNIQUE: 3 views of the left foot FINDINGS: Dystrophic calcifications of the plantar fascia. Moderate sized calcaneal enthesophytes. Soft tissue thickening of the distal Achilles suggesting tendinosis. Mild to moderate osteoarthritis. Mild diffuse soft tissue swelling. No definite acute fracture or dislocation identified. IMPRESSION: Soft tissue swelling without acute fracture or dislocation identified. ACT 112: Negative or not required by law. The above report was generated using voice recognition software. It may contain grammatical, syntax or spelling errors. Electronically signed by: Filippo Torres M.D. 03/27/2024 3:22 PM Hip/Pelvis X-Ray 03/27/24 14:13 XR hip RT 2V w pelvis CLINICAL HISTORY: fall TECHNIQUE: 2 views of the left hip and single frontal view of the pelvis were obtained. Comparison: None available at the time of this dictation. FINDINGS: There is no evidence of an acute fracture. Severe right osteoarthritic changes are seen. Mild left osteoarthritis is also noted. No soft tissue abnormality is seen. IMPRESSION: Severe right osteoarthritis without evidence of acute fracture. ACT 112: Negative or not required by law. Electronically signed by: Juan Valdovinos M.D. 03/27/2024 3:24 PM MDM Narrative 1400: The patient was evaluated in room C10. A complete history and physical exam was performed 1630: Vital signs stable. X-ray showed no acute fractures or dislocations. Wounds were closed by GINA Paula, see his procedure note. Patient be discharged with follow-up PCP. 1730: At time of discharge patient and state that he is too weak to be discharged home and they are requesting placement back into [facility] rehab. Case management met with the patient and they stated that [facility] is currently fall and recommend admission until the patient can be placed at [facility]. And any hospitalist team will be contacted. 1745: Discussed the case with Dr. Robertson who states he will evaluate the patient for admission. Impression & Plan Fall, Laceration of foot Discharge Plan Visit Data Chief Complaint: Fall Stated Complaint: FALL ED Provider: Stephen Espitia Discharge Problem: Fall, Laceration of foot Patient Disposition: Being Evaluated by Hospitalist Discharge Instructions Krames/Other Patient Handouts: ED Laceration, All Closures Activity Restrictions/Additional Instructions: Leave the dressing in place for the next 24 hours. After that you can remove the dressing and gently wash with soap and water and then reapply a new dressing every 12-24 hours after that. New dressing should include a thin layer of bacitracin ointment and a large Band-Aid. After 5 days you do not need to use bacitracin ointment but you should continue to keep it clean and covered and protected. Do not do anything that would cause the stitches to pull out. Do not swim or submerge the laceration under water. Showering is acceptable and encouraged after 24 hours. Suture removal should occur in 14 days. This can be performed by your primary care provider or by returning to the emergency department. Once the stitches are removed, the laceration is most prone to opening back up because it is not fully healed. Be cautious with the laceration until it is fully healed. Watch for signs and symptoms of infection including but not limited to: spreading skin redness, worsening pain, worsening swelling, red streaks, pus drainage, wound pulling apart. Forms Stand Alone Forms: [facility], Important Visit Information Prescriptions Prescriptions: New etodolac 200 mg capsule 200 mg PO Q12H PRN (Reason: pain) Qty: 14 0RF No Action celecoxib 100 mg capsule 100 mg PO BID PRN (Reason: Pain) ipratropium-albuterol 0.5 mg-3 mg(2.5 mg base)/3 mL Solution For Nebulization 3 ml NEB QIDR Qty: 90 0RF tramadol 50 mg Tablet 100 mg PO Q6H PRN (Reason: moderate pain (scale score 5-6)) Qty: 10 0RF melatonin 3 mg Tablet 6 mg PO HS PRN (Reason: sleep) Qty: 60 0RF nystatin [Nystop] 100,000 unit/gram Powder 1 applic EXT DAILY PRN (Reason: Rash under skin folds) Qty: 15 0RF metformin 500 mg tablet extended release 24 hr 1,000 mg PO BID Combivent Respimat 20-100 mcg/actuation mist 1 puff INHALATION Q4 potassium chloride 10 mEq tablet,ER particles/crystals 10 meq PO AMPM pantoprazole 40 mg tablet,delayed release (DR/EC) 40 mg PO DAILYBB metoprolol tartrate 25 mg tablet 25 mg PO AMPM magnesium oxide 400 mg (241.3 mg magnesium) tablet 400 mg PO AMPM furosemide 80 mg tablet 80 mg PO .EVERY AFTERNOON Rx Instructions: does not want to take in morning since it interferes with therapy Referrals Referrals: Obed Reid III, CRNP [Nurse Practitioner] - (Follow-up in 1-7 days.) Daniel Antonio MD, FCCP [Physician] - (Follow-up in 1-7 days.) PCP,NO [Primary Care Provider] - Discharge Problem: Fall Qualifiers: Encounter type: initial encounter Qualified Code(s): W19.XXXA - Unspecified fall, initial encounter Laceration of foot Qualifiers: Encounter type: initial encounter Laterality: unspecified laterality Qualified Code(s): S91.319A - Laceration without foreign body, unspecified foot, initial encounter
--- NOTE | 2024-03-27 15:24 | XRay Report ---
XR foot LT min 3V routine HISTORY: 53 years-old Male fall acute left foot pain status post COMPARISON: None TECHNIQUE: 3 views of the left foot FINDINGS: Dystrophic calcifications of the plantar fascia. Moderate sized calcaneal enthesophytes. Soft tissue thickening of the distal Achilles suggesting tendinosis. Mild to moderate osteoarthritis. Mild diffus e soft tissue swelling. No definite acute fracture or dislocation identified. IMPRESSION: Soft tissue swelling without acute fracture or dislocation identified. ACT 112: Negative or not required by law. The above report was generated using voice recognition software. It may contain grammatical, syntax o r spelling errors. Electronically signed by: Filippo Torres M.D. 03/27/2024 3:22 PM
--- NOTE | 2024-03-27 15:25 | XRay Report ---
XR hip RT 2V w pelvis CLINICAL HISTORY: fall TECHNIQUE: 2 views of the left hip and single frontal view of the pelvis were obtained. Comparison: None available at the time of this dictation. FINDINGS: There is no evidence of an acute fracture. Severe right osteoarthritic changes are seen. Mild left os teoarthritis is also noted. No soft tissue abnormality is seen. IMPRESSION: Severe right osteoarthritis without evidence of acute fracture. ACT 112: Negative or not required by law. Electronically signed by: Juan Valdovinos M.D. 03/27/2024 3:24 PM
[2024-03-27] MEDS: LIDOCAINE 1% LOCAL 20 ML VIAL INFIL ONE (16:20)
[2024-03-27] MEDS: KETOROLAC TROMETHAMINE 60 MG/2 ML VIAL IM STA (16:56)
--- NOTE | 2024-03-27 17:06 | Emergency Department Note ---
ED Visit Note I was asked by ED attending Dr. Espitia to evaluate and repair the patient's lacerations on his left foot. Please refer to Dr. Espitia's note for the shanon mayelinsantiago's full evaluation, management, and disposition. Patient has a gouged type irregular laceration to the medial aspect of the great toe. There is persistent capillary bleeding. There is also a laceration along the plantar MTP crease of the little toe extending into the subcutaneous tissue with capillary bleeding present. Laceration repair performed by myself Location: Left great toe Procedure: -Wound was anesthetized with 2 mL lidocaine 1% -Copiously irrigated with sterile saline -Approximated with 2, 4-0 nylon simple interrupted sutures. -Total laceration length 1 cm Laceration repair performed by myself Location: Plantar MTP crease of little toe Procedure: -Wound anesthetized with 2 mL lidocaine 1% -Copiously irrigated with sterile saline -Approximated with 2, 4-0 nylon simple interrupted sutures -Total laceration length 2 cm Both wounds were dressed with bacitracin ointment, nonstick dressing, and adhesive wrap. Wound care instructions discussed. Watch for signs and symptoms of infection. Sutures should be removed in 14 days by primary care or returning to the emergency department. .
--- NOTE | 2024-03-27 18:44 | History & Physical Report ---
Date of Service March 27, 2024 Assessment & Plan (1) Laceration of foot: (2) Fall: (3) HTN (hypertension), benign: (4) Morbid obesity: (5) EMELY (obstructive sleep apnea): (6) Degenerative arthritis: (7) Prediabetes: (8) Physical deconditioning: Plan Patient is a 53 y/o M w/ PMHx of HTN, Pre-diabetes, Morbid obesity, EMELY/OHS with recent addition of CPAP (hasn't gotten it yet), HFpEF, Psoriasis, and severe OA of hips with use of cane for ambulation at baseline who was admitted for observation due to persistent weakness that has affected ambulation. Ambulatory dysfunction Physical Deconditioning // Hip OA -Patient with recent admission after which she was sent for inpatient PT due to weakness -Patient has been at the better part of the last 3 weeks laying down, which in combination with his severe hip osteoarthritis are likely contributors to affected ambulation -Discussed that although physical therapy is not provide some short-term help, long-term improvement is going to be better achieved with weight loss and outpatient Ortho follow-up -Will admit patient to med/surg for observation until discharge disposition is determined -PT and OT consulted -Pain control with Acetaminophen 1000 mg; may add Toradol 15 mg IV Q6H prn if renal function is appropriate Holding off on home tramadol given history of OHS EMELY/OHS -Patient was recently recommended to start using a home CPAP which was ordered but has not yet arrived -Has been sleeping with oxygen supplementation through nasal cannula until CPAP machine arrives -Will order CPAP while admitted -Holding opioid analgesics as detailed above Prediabetes -Last hemoglobin A1c from 09/07 was normal at 5.9% -Will order repeat hemoglobin A1c - On home Metformin 1000 mg bid -Lantus and SSI HTN - Will continue home meds HFpEF -Last echocardiogram from 03/06/2024: Normal left ventricular systolic function with EF of 60 to 65% Signs of right ventricular pressure/volume overload with systolic pressure elevated at 40 to 50 mmHg Noted small noncircumferential posterior effusion, resolved to 1 cm in depth Dispo: Med/Surg Diet: HH, DM-2, low sodium VTE ppx: Lovenox Code Status: Full History of Present Illness Chief Complaint: Fall Primary Care Provider: NO PCP Patient is a 53 y/o M w/ PMHx of HTN, Pre-diabetes, Morbid obesity, EMELY/OHS with recent addition of CPAP (hasn't gotten it yet), HFpEF, Psoriasis, and severe OA of hips with use of cane for ambulation at baseline who was brought to the ED due to fall earlier today. Patient was recently discharged from [facility] on 03/14/2024 after being managed for ARF secondary to what was thought to be OHS. During this recent admission, patient was noted to have significant pain secondary to his severe hip OA and was sent for physical therapy. He completed 1-week course of physical therapy and was discharged yesterday. Earlier today, he was walking to his bathroom which his describes as being very narrow especially for patient's size. When he was trying to stand from the toilet, patient felt unable to stand up as his knees were very weak and was feeling hip pain. Due to this, patient fell w/o preceding lightheadedness, chest pain, SOB, or other symptoms. Of note, patient spent almost the entire past admission laying down and when he was in physical therapy he was not stood up very much either, per patient's , and so he was laying down for the better part of the past 3 weeks. Given patient's weakness and difficulty for his to help him up if he falls due to his weakness, they were stating he needed more time of PT. ED Course: Given Toradol IM x1, laceration in toes of left foot sutured using lidocaine w/o epi Labs/Imaging: Renal panel and CBC ordered but not yet collected Medical History: [Reviewed] Medications: [Reviewed] Surgical History: [Reviewed] Family history: [Reviewed] Allergies: [Reviewed] Social History: [Reviewed] Allergies Allergy/AdvReac Type Severity Reaction Status Date / Time No Known Allergies Allergy Unverified 03/05/24 19:32 Home Medications Medication Instructions Recorded Confirmed Type celecoxib 100 mg capsule 100 mg PO BID PRN Pain 03/05/24 03/27/24 History ipratropium 0.5 mg-albuterol 3 mg 3 ml NEB QIDR #90 mL 03/14/24 03/27/24 Rx (2.5 mg base)/3 mL nebulization soln melatonin 3 mg tablet 6 mg (2 x 3 mg) PO HS PRN sleep 03/14/24 03/27/24 Rx #60 tabs nystatin 100,000 unit/gram topical 1 applic EXT DAILY PRN Rash under 03/14/24 03/27/24 Rx powder (Nystop) skin folds #15 grams tramadol 50 mg tablet 100 mg (2 x 50 mg) PO Q6H PRN 03/14/24 03/27/24 Rx moderate pain (scale score 5-6) #10 tabs etodolac 200 mg capsule 200 mg PO Q12H PRN pain #14 caps 03/27/24 03/27/24 Rx furosemide 80 mg tablet 80 mg PO .EVERY AFTERNOON 03/27/24 03/27/24 History ipratropium 20 mcg-albuterol 100 1 puff inhalation Q4 03/27/24 03/27/24 History mcg/actuation mist for inhalation (Combivent Respimat) magnesium oxide 400 mg (241.3 mg 400 mg PO AMPM 03/27/24 03/27/24 History magnesium) tablet metformin 500 mg tablet,extended 1,000 mg PO BID 03/27/24 03/27/24 History release 24 hr metoprolol tartrate 25 mg tablet 25 mg PO AMPM 03/27/24 03/27/24 History pantoprazole 40 mg tablet,delayed 40 mg PO DAILYBB 03/27/24 03/27/24 History release potassium chloride 10 mEq 10 meq PO AMPM 03/27/24 03/27/24 History tablet,extended release(part/cryst) Past Med/Surg History Problem List (Updated 03/27/24 @ 18:56 by Josselyn Ulrich MD) Physical deconditioning Laceration of foot (Acute) Fall (Acute) HTN (hypertension), benign Restrictive lung disease secondary to obesity Degenerative arthritis Hypokalemia Tinea corporis Hyperkalemia (Acute) EVA (acute kidney injury) (Acute) Elevated LFTs (Acute) Acute liver failure Morbid obesity (Acute) Encephalopathy Respiratory failure requiring intubation Obesity Sinus pause EMELY (obstructive sleep apnea) Acute hypercapnic respiratory failure (Acute) Sepsis (Acute) Leanne's gangrene (Acute) Hypoxia (Acute) SOB (shortness of breath) Medical History Prediabetes Candidiasis of mouth and esophagus AV block Benign essential hypertension Tinea cruris Psoriasis Pickwickian syndrome Cellulitis of leg, right Morbid obesity with BMI of 60.0-69.9, adult Surgical History History of appendectomy History of cholecystectomy Social History Smoking Status: Former smoker Tobacco Type: Cigarettes Cigarettes Per Day: pack per day; Second Hand Exposure: No; Do You Dip or Chew Tobacco: No; Hx Alcohol Use: No (quit 4 yrs ago) Hx Substance Use: No Preferred Language: Macedonian Communication Ability: Unable Educational Technology Specialist Required: Yes Beliefs That Will Affect Care: None Current Living Situation: Spouse Feels Safe at Home: Yes Assistive Devices: Cane and Lift Chair Review of Systems Review of Systems: As per HPI Physical Exam Physical Exam: GENERAL: AAOx3, afebrile, NAD HEAD: AT, NC EYES: EOM intact, [place]SA CHEST: symmetric chest expansions with respirations CARDIO: RRR, no r/m/g PULMONARY: CTA b/l, normal respiratory effort, using NC at 2 lpm, no respiratory distress GI: soft, non-distended, non-tender EXTREMITIES: no swelling or calf tenderness, left toes covered with bandages that were c/d/i SKIN: b/l LE with slight erythema w/o associated warmth or tenderness, scattered scaly salmon colored lesions consistent w/ hx of psoriasis, erythematous lesions in inframammary folds skin folds, non-bleeding scattered linear abrasions in abdomen and LE associated w/ recent fall Results & Data Results & Data Vital Signs (Past 12 Hours) Vital Signs Temp Pulse Pulse Resp BP BP Pulse Ox 03/27/24 15:33 87 20 94 03/27/24 14:00 88 03/27/24 13:42 36.8 C 88 17 112/80 92 03/27/24 13:34 36.8 C 90 22 112/80 93 O2 Del Method O2 Flow Rate 03/27/24 15:33 Nasal Cannula 03/27/24 14:00 03/27/24 13:42 Nasal Cannula 2 03/27/24 13:34 Nasal Cannula 2 Supervising Physician Co-Signing Physician Notes I have personally seen, evaluated and examined the patient. I have also personally discussed the management of the patient with the resident physician/ANNA and I agree with the exam findings documented in the history and physical examination and the documented assessment and plan unless otherwise stated below. Brief Exam: In general very pleasant 53-year-old gentleman of [place] descent. He is accompanied by his at the time my examination. He interacts appropriately pleasantly. He has no specific complaints He tells me he has a CPAP coming in the mail to him and supposed to arrive tomorrow. HEENT: Is normocephalic atraumatic. Heart: Regular rate and rhythm. Lungs: Breath sounds are clear but distant given his body habitus. Abdomen: Soft, nontender, excoriations of intertriginous regions. And skin folds consistent with cutaneous candidiasis. Extremities: Intact. Multiple chronic wounds with an acute wound on the left great toe and lateral metatarsal region. They are dressed post suturing. Neurologically: Alert and oriented x 3. No gemma focal deficit. Assessment/plan: As discussed above. Case management consultation. Physical therapy consultation. Will order auto CPAP. Of continuous pulse ox for sleep apnea. Please refer to orders for further planning. Resident Activity Tracking Resident Involvement: Resident Care Provided Care Provided: Adult Hospital Medicine (1) Laceration of foot Encounter type: initial encounter Laterality: unspecified laterality Qualified Code(s): S91.319A - Laceration without foreign body, unspecified foot, initial encounter (2) Fall Encounter type: initial encounter Qualified Code(s): W19.XXXA - Unspecified fall, initial encounter
[2024-03-27] MEDS: ACETAMINOPHEN 500 MG TAB PO STA (19:35)
[2024-03-27 20:15] LABS: Basophils # (auto) 0.05 K/uL (0.00-0.20); Basophils % (auto) 0.3 %; Eosinophils # (auto) 0.07 K/uL (0.00-0.50); Eosinophils % (auto) 0.4 %; Hematocrit (blood only) 46.3 % (42.0-52.0); Hemoglobin 13.9 g/dl (14.0-18.0); Immature Granulocytes # (auto) 0.11 K/uL (0.01-0.20); Immature Granulocytes % (auto) 0.7 %; Lymphocytes # (auto) 2.21 K/uL (1.20-3.40); Mean Corpuscular Hemoglobin 24.1 pg (25.0-34.0); Mean Corpuscular Volume 80.4 fL (80.0-100.0); Mean Platelet Volume 8.8 fL (9.4-12.4); Monocytes # (auto) 1.31 K/uL (0.11-0.59); Monocytes % (auto) 8.3 %; Neutrophils # (auto) 12.08 K/uL (1.40-6.50); Neutrophils % (auto) 76.3 %; Platelet Count 388 K/uL (130-400); RDW Coefficient of Variation 21.2 % (11.5-14.5); RDW Standard Deviation 58.1 fL (36.4-46.3); Red Blood Count 5.76 M/uL (4.70-6.10); White Blood Count 15.83 K/ul (4.8-10.8)
[2024-03-27 20:31] LABS: BUN Creatinine Ratio 12.7 (10-20); Calcium 8.9 mg/dl (8.6-10.3); Creatinine Clr Calc Pharmacy 304.5 ml/min; Est GFR (African American) 131.3 ml/min; Est GFR (Non-African American) 113.3 ml/min; Potassium 3.5 mmol/L (3.5-5.1)
[2024-03-27 20:34] LABS: Anisocytosis Present
[2024-03-27] MEDS ORDERED: ONDANSETRON INJ 2 MG/ML 2 ML VIAL IV PRN (22:43)
[2024-03-27] MEDS ORDERED: GLUCOSE 10 TAB/TUBE PO PRN (22:43)
[2024-03-27] MEDS ORDERED: DEXTROSE 50% 50 ML SYRINGE IV PRN (22:43)
[2024-03-27] MEDS ORDERED: NYSTATIN POWDER 15GM BTL EXT PRN (22:43)
[2024-03-27] MEDS ORDERED: IPRATROPIUM BROMIDE/ALBUTEROL respimat INH INH SCH (22:43)
[2024-03-27] MEDS ORDERED: GLUCOSE 40% GEL 15 GM TUBE PO PRN (22:43)
[2024-03-27] MEDS ORDERED: CARBOHYDRATES FOR HYPOGLYCEMIA PO PRN (22:43)
[2024-03-27] MEDS ORDERED: GLUCAGON FOR INJ 1 MG VIAL SQ PRN (22:43)
[2024-03-27] MEDS ORDERED: Ipratropium HFA Inhaler (Combivent Respimat P&T Subs) INH SCH (23:00)
[2024-03-27] MEDS ORDERED: Albuterol HFA 8 GM Inhaler (Combivent Respimat P&T Subs) INH SCH (23:00)
[2024-03-27] MEDS: ALBUT/IPRATROP 3MG/0.5MG NEB 3 ML VIAL NEB SCH (23:26)
[2024-03-27] MEDS: INSULIN ASPART PER UNIT CHARGE SC SCH (23:27)
[2024-03-27] MEDS: MAGNESIUM OXIDE 400 MG TAB PO SCH (23:41)
[2024-03-27] MEDS: POTASSIUM CHLORIDE 10 MEQ TABCR PO SCH (23:41)
[2024-03-27] MEDS: METOPROLOL TARTRATE 25 MG TAB PO SCH (23:41)
[2024-03-27] MEDS: ACETAMINOPHEN 500 MG TAB PO PRN (23:45)
[2024-03-27] MEDS: MELATONIN 3 MG TAB PO PRN (23:46)
[2024-03-28] MEDS: LANTUS PER UNIT CHARGE SQ SCH (00:14)
[2024-03-28] MEDS: PANTOprazole 40 MG TAB PO SCH (05:53)
[2024-03-28] MEDS: FUROSEMIDE 80 MG TAB PO SCH (07:21)
[2024-03-28] MEDS: ENOXAPARIN INJ 40 MG/0.4 ML SYR SQ SCH ×2 (07:22→20:56)
[2024-03-28 08:05] LABS: Hematocrit (blood only) 43.4 % (42.0-52.0); Mean Corpuscular Hemoglobin 24.3 pg (25.0-34.0); Platelet Count 339 K/uL (130-400); RDW Coefficient of Variation 20.9 % (11.5-14.5); RDW Standard Deviation 60.6 fL (36.4-46.3); Red Blood Count 5.36 M/uL (4.70-6.10); White Blood Count 9.67 K/ul (4.8-10.8)
[2024-03-28 08:27] LABS: Albumin Globulin Ratio 1.3 (0.9-2); Albumin Level 3.3 gm/dl (3.4-5.0); BUN Creatinine Ratio 14.3 (10-20); Bilirubin,Total 0.8 mg/dl (0.2-1.0); Calcium 8.5 mg/dl (8.6-10.3); Creatinine Clr Calc Pharmacy 394.7 ml/min; Est GFR (African American) 145.6 ml/min; Est GFR (Non-African American) 125.6 ml/min; Globulin 2.5 gm/dl (2.5-4.0); Potassium 3.6 mmol/L (3.5-5.1); Total Protein 5.8 gm/dl (6.0-8.3)
[2024-03-28 08:49] LABS: Estimated Average Glucose 134 mg/dl; Hemoglobin A1C 6.3 % (4.5-5.6)
[2024-03-28] MEDS ORDERED: FUROSEMIDE 80 MG TAB PO SCH (12:00)
--- NOTE | 2024-03-28 12:35 | Hospitalist Progress Note ---
Date of Service March 28, 2024 Assessment & Plan (1) Fall: Plan: Ambulatory dysfunction/ Physical Deconditioning / Hip OA Patient with recent admission and discharge to [facility]. Discharged from [facility] 03/26 and presented to ER 03/27 after fall after standing from toilet. Mechanical fall, no prodromal symptoms. -Pt aware physical therapy is to provide some short-term help, long-term improvement is going to be better achieved with weight loss and outpatient Ortho follow-up -PT and OT consulted - willing to go back to [facility] - CM following -Pain control with Acetaminophen 1000 mg; prn Toradol Holding off on home tramadol given history of OHS (2) EMELY (obstructive sleep apnea): Plan: -Patient was recently recommended to start using a home CPAP which was ordered but has not yet arrived -Has been sleeping with oxygen supplementation through nasal cannula until CPAP machine arrives, does not wear oxygen during the day at home - refusing CPAP while admittied -Holding opioid analgesics as detailed above (3) Laceration of foot: Plan: wound occured when being pulled out of the bathroom with EMS - sutured in the ER, removal in 14 days (from 03/27) (4) Prediabetes: Plan: A1c 6.3, On home Metformin 1000 mg bid (held) -Lantus and SSI Plan Chronic stable medical conditions: * HTN - continue metoprolol * CHF - last echo EF 60-65, small pericardial effusion, needs repeat in 1 month (from 03/06). Continue lasix daily * Morbid obesity - BMI 60.9 Dispo: continued inpatient stay VTE ppx: Lovenox BID Admission and Anticipated Discharge Date Admission Date: March 27, 2024 Supervising Physician Co-Signing Physician Notes Attending Attestation - Chart reviewed, care plan d/w EDI Butler. I agree w/ the march components of her documentation. bOed Fatima MD Subjective Patient seen lying in bed. States that when he was standing in the bathroom just felt his legs give out from underneath him. No fevers, chills, sweats, cough, headache or other abnormal symptoms at home. has been dealing with severe osteoarthritis for awhile and is hoping he is not at the point where he has to be wheelchair bound Review of Systems Review of Systems: All systems reviewed & are unremarkable except as noted in Subjective Physical Exam Physical Exam: General: NAD, morbidly obese VS as above Resp: normal respiratory effort, lungs diminished in the bases, no wheezing CV: RRR, no murmur, Abd: normal bowel sounds, non tender, no hepatosplenomegaly Extremities: Moves all extremities, no edema Neuro: A&O x3, Skin: intact, multiple lesions - many appearing like psorasis, erythema under bilateral breast. toe dressings c/d/i from sutures in ED Results & Data Results & Data Vital Signs (Past 12 Hours) Vital Signs Temp Pulse Pulse Resp BP Pulse Ox O2 Del Method 03/28/24 11:44 36.4 C L 83 22 128/76 97 Room Air 03/28/24 11:15 81 19 91 Nasal Cannula 03/28/24 08:16 36.9 C 84 20 128/78 97 Room Air 03/28/24 07:40 Nasal Cannula 03/28/24 07:25 84 17 91 Nasal Cannula O2 Flow Rate 03/28/24 11:44 03/28/24 11:15 4 03/28/24 08:16 03/28/24 07:40 2 03/28/24 07:25 3 Laboratory Results CBC, chemistry, [id number] reviewed PG Care Time/CCT Total # of Minutes Spent Total Time Spent with Patient: Total time spent is greater than 50% in coordination of care (as documented) at patient's floor/unit and/or counseling patient: Coding Level of Care Code 31840 SUB INP/OBS CARE 3/50MIN Diagnoses Fall W19.XXXA Encounter type: initial encounter EMELY (obstructive sleep apnea) G47.33 Laceration of foot S91.319A Encounter type: initial encounter Laterality: unspecified laterality Prediabetes R73.03 (1) Fall Encounter type: initial encounter Qualified Code(s): W19.XXXA - Unspecified fall, initial encounter (3) Laceration of foot Encounter type: initial encounter Laterality: unspecified laterality Qualified Code(s): S91.319A - Laceration without foreign body, unspecified foot, initial encounter
[2024-03-29] MEDS: KETOROLAC TROMETHAMINE 15 MG/ML VIAL IV PRN (02:30)
--- NOTE | 2024-03-29 13:50 | Hospitalist Progress Note ---
Date of Service March 29, 2024 Assessment & Plan (1) Fall: Plan: Ambulatory dysfunction/ Physical Deconditioning / Hip OA Patient with recent admission and discharge to [facility]. Discharged from [facility] 03/26 and presented to ER 03/27 after fall after standing from toilet. Mechanical fall, no prodromal symptoms. -Pt aware physical therapy is to provide some short-term help, long-term improvement is going to be better achieved with weight loss and outpatient Ortho follow-up -PT and OT consulted - willing to go back to [facility] however, they will not accept - CM following -Pain control with Acetaminophen 1000 mg; prn Toradol Holding off on home tramadol given history of OHS (2) EMELY (obstructive sleep apnea): Plan: -Patient was recently recommended to start using a home CPAP which was ordered but has not yet arrived -Has been sleeping with oxygen supplementation through nasal cannula until CPAP machine arrives, does not wear oxygen during the day at home - refusing CPAP while admittied -Holding opioid analgesics as detailed above Patient Trilogy should be arriving at home soon - he is refusing to wear this in the hospital, stating he will only wear this at home because he does not like being hooked up to things. (3) Laceration of foot: Plan: wound occured when being pulled out of the bathroom with EMS - sutured in the ER, removal in 14 days (from 03/27) Also multiple other skin lesions - seen by wound care nurse, Landon did not want to follow many of her recommendations stating he will just put vaseline on the areas (4) Prediabetes: Plan: A1c 6.3, On home Metformin 1000 mg bid (held) -Lantus and SSI Plan Chronic stable medical conditions: * HTN - continue metoprolol * CHF - last echo EF 60-65, small pericardial effusion, needs repeat in 1 month (from 03/06). Continue lasix daily * Morbid obesity - BMI 60.9 Dispo: continued inpatient stay VTE ppx: Lovenox BID Admission and Anticipated Discharge Date Admission Date: March 29, 2024 Supervising Physician Co-Signing Physician Notes Attending Attestation - Chart reviewed, care plan d/w EDI Butler. I agree w/ the march components of her documentation. Obed Fatima MD Subjective patient resting in bed frustrated with being denied from [facility] states his is going to bring in things so he can work on exercises here states he will not bring in the Trilogy machine because he will not use it in the hospital - just at home. states he does not want to be hooked up to things "he is not a cyborg" no acute physical complaints Review of Systems Review of Systems: All systems reviewed & are unremarkable except as noted in Subjective Physical Exam Physical Exam: General: NAD, morbidly obese VS as above Resp: normal respiratory effort, lungs diminished in the bases, no wheezing. On nasal canula CV: RRR, no murmur, Abd: normal bowel sounds, non tender, no hepatosplenomegaly Extremities: Moves all extremities, no edema Neuro: A&O x3, Skin: intact, multiple lesions - many appearing like psorasis, erythema under bilateral breast. toe dressings c/d/i from sutures in ED Results & Data Results & Data Vital Signs (Past 12 Hours) Vital Signs Temp Pulse Resp BP Pulse Ox O2 Del Method O2 Flow Rate 03/29/24 10:48 78 18 93 Nasal Cannula 3 03/29/24 09:12 Nasal Cannula 2 03/29/24 07:19 36.6 C 91 H 18 125/75 93 Nasal Cannula 3 03/29/24 06:53 71 Nasal Cannula 3 Laboratory Results POC glucose reviewed PG Care Time/CCT Total # of Minutes Spent Total Time Spent with Patient: Total time spent is greater than 50% in coordination of care (as documented) at patient's floor/unit and/or counseling patient: Coding Level of Care Code 09913 SUB INP/OBS CARE 2/35MIN Diagnoses Fall W19.XXXA Encounter type: initial encounter EMELY (obstructive sleep apnea) G47.33 Laceration of foot S91.319A Encounter type: initial encounter Laterality: unspecified laterality Prediabetes R73.03 (1) Fall Encounter type: initial encounter Qualified Code(s): W19.XXXA - Unspecified fall, initial encounter (3) Laceration of foot Encounter type: initial encounter Laterality: unspecified laterality Qualified Code(s): S91.319A - Laceration without foreign body, unspecified foot, initial encounter
--- NOTE | 2024-03-30 14:20 | Hospitalist Progress Note ---
Date of Service March 30, 2024 Assessment & Plan (1) Fall: Plan: Ambulatory dysfunction/ Physical Deconditioning / Hip OA Patient with recent admission and discharge to [facility]. Discharged from [facility] 03/26 and presented to ER 03/27 after fall after standing from toilet. Mechanical fall, no prodromal symptoms. -Pt aware physical therapy is to provide some short-term help, long-term improvement is going to be better achieved with weight loss and outpatient Ortho follow-up -PT and OT consulted - willing to go back to [facility] however, they will not accept - CM following - referral sent to [facility] -Pain control with Acetaminophen 1000 mg; prn Toradol Holding off on home tramadol given history of OHS (2) EMELY (obstructive sleep apnea): Plan: -Patient was recently recommended to start using a home CPAP which was ordered but has not yet arrived -Has been sleeping with oxygen supplementation through nasal cannula until CPAP machine arrives, does not wear oxygen during the day at home - refusing CPAP while admittied -Holding opioid analgesics as detailed above Patient Trilogy should be arriving at home soon - he is refusing to wear this in the hospital, stating he will only wear this at home because he does not like being hooked up to things. (3) Laceration of foot: Plan: wound occured when being pulled out of the bathroom with EMS - sutured in the ER, removal in 14 days (from 03/27) Also multiple other skin lesions - seen by wound care nurse, Landon did not want to follow many of her recommendations stating he will just put vaseline on the areas (4) Prediabetes: Plan: A1c 6.3, On home Metformin 1000 mg bid (held) -Lantus and SSI Plan Chronic stable medical conditions: * HTN - continue metoprolol * CHF - last echo EF 60-65, small pericardial effusion, needs repeat in 1 month (from 03/06). Continue lasix daily * Morbid obesity - BMI 60.9 Dispo: continued inpatient stay confirmed CODE STATUS 03/30 VTE ppx: Lovenox BID Admission and Anticipated Discharge Date Admission Date: March 29, 2024 Supervising Physician Co-Signing Physician Notes Attending Attestation - Chart reviewed, care plan d/w EDI Butler. I agree w/ the march components of her documentation. Obed Fatima MD Subjective patient seen lying in bed. States he has been doing his arm exercises all morning. Will do leg exercises when his comes in. No acute complaints, pain is controlled. Discussed CODE STATUS as patient has mentioned that he does not want to be hooked up to tubes, he confirms that he would still like to be a full code, but would not want to be dependent on machines to live last bowel movement on Tuesday Review of Systems Review of Systems: All systems reviewed & are unremarkable except as noted in Subjective Physical Exam Physical Exam: General: NAD, morbidly obese VS as above Resp: normal respiratory effort, lungs diminished in the bases, no wheezing. On room air CV: RRR, no murmur, Abd: normal bowel sounds, non tender, no hepatosplenomegaly Extremities: Moves all extremities, no edema Neuro: A&O x3, Skin: intact, multiple lesions - many appearing like psorasis, erythema under bilateral breast. toe dressings c/d/i from sutures in ED Results & Data Results & Data Vital Signs (Past 12 Hours) Vital Signs Temp Pulse Pulse Resp BP Pulse Ox O2 Del Method 03/30/24 12:46 35.9 C L 82 16 161/90 H 95 Room Air 03/30/24 11:07 90 18 92 Room Air 03/30/24 09:00 Room Air 03/30/24 08:29 36.6 C 92 H 16 125/76 94 Room Air 03/30/24 06:52 92 H 19 90 Room Air PG Care Time/CCT Total # of Minutes Spent Total Time Spent with Patient: Total time spent is greater than 50% in coordination of care (as documented) at patient's floor/unit and/or counseling patient: Coding Level of Care Code 06252 SUB INP/OBS CARE /MIN Diagnoses Fall W19.XXXA Encounter type: initial encounter EMELY (obstructive sleep apnea) G47.33 Laceration of foot S91.319A Encounter type: initial encounter Laterality: unspecified laterality Prediabetes R73.03 (1) Fall Encounter type: initial encounter Qualified Code(s): W19.XXXA - Unspecified fall, initial encounter (3) Laceration of foot Encounter type: initial encounter Laterality: unspecified laterality Qualified Code(s): S91.319A - Laceration without foreign body, unspecified foot, initial encounter
--- NOTE | 2024-03-31 09:17 | Hospitalist Progress Note ---
Date of Service March 31, 2024 Assessment & Plan (1) Fall: Plan: Ambulatory dysfunction/ Physical Deconditioning / Hip OA Patient with recent admission and discharge to [facility]. Discharged from [facility] 03/26 and presented to ER 03/27 after fall after standing from toilet. Mechanical fall, no prodromal symptoms. -Pt aware physical therapy is to provide some short-term help, long-term improvement is going to be better achieved with weight loss and outpatient Ortho follow-up -PT and OT consulted - willing to go back to [facility] however, they will not accept - CM following - referral sent to [facility] -Pain control with Acetaminophen 1000 mg; prn Toradol Holding off on home tramadol given history of OHS (2) EMELY (obstructive sleep apnea): Plan: -Patient was recently recommended to start using a home CPAP. Machine has been delivered to his home but he has not yet started using it as he has not been home -Has been sleeping with oxygen supplementation through nasal cannula. Does not wear oxygen during the day at home -Again offered hospital CPAP but patient is refusing while admittied -Holding opioid analgesics as detailed above Patient Trilogy should be arriving at home soon - he is refusing to wear this in the hospital, stating he will only wear this at home because he does not like being hooked up to things. Offered use during the day to get accustomed to the appliance but he also refused daytime use (3) Laceration of foot: Plan: wound occured when being pulled out of the bathroom with EMS - sutured in the ER, removal in 14 days (from 03/27) (4) Prediabetes: Plan: A1c 6.3, On home Metformin 1000 mg bid (held) -Lantus and SSI (5) Obesity: Plan: Discussed need for frequent repositioning with nurse and with patient Unable to use Binh lift due to patients weight exceeded the safe weight of the lift Requested Bariatric bed that adjusts into a chair position and dope house operator helper working on a suitable bed (6) Psoriasis diffusa: Plan: Multiple skin lesions consistent with psoriasis and tinea crusis Will use Brigitte cream to affected areas Will also order Diflucan 100mg PO daily X 4 doses Patient did not want to follow prior recommendations stating that products contained Zinc and it caused burning. He has been putting Vaseline on the affected areas. Long discussion about the risk of using occlusive ointment. Patient agreeable and will agree to see wound care and follow suggestions. Trial of Brigitte Cream containing Zinc Oxide. No burning. Patient agreed to continue use as tolerated Plan Chronic stable medical conditions: * HTN - continue metoprolol * CHF - last echo EF 60-65, small pericardial effusion, needs repeat in 1 month (from 03/06). Continue lasix daily * Morbid obesity - BMI 60.9 Dispo: continued inpatient stay pending placement Confirmed CODE STATUS 03/30/2024 VTE ppx: Lovenox BID Admission and Anticipated Discharge Date Admission Date: March 29, 2024 Supervising Physician Co-Signing Physician Notes Attending Attestation - Chart reviewed, care plan d/w PA Kiet Giron. I agree w/ the march components of his documentation. Obed Fatima MD Subjective Attending: Dr. Fatima This is a 53-year-old male with admission on 03/27/2024 for ambulatory dysfunction resulting in fall and laceration of toes of left foot requiring sutures. Patient previously at [facility]. He has been referred back there this admission but they will not accept at this time. Referral was sent to [facility] and placement is pending. Patient continues with profound weakness and exacerbation of chronic psoriosis. No new acute complaints, fever, chills, n/v/d. Review of Systems 2 Review of Systems: A total of 10 systems was reviewed and is negative other than as listed in the HPI Physical Exam 2 Physical Exam: GENERAL : No acute distress EYES: No icterus, gaze conjugate NOSE: No evidence of epistaxis MOUTH: No lesions or candidiasis NECK: Supple LUNGS: CTA B/L, no wheezes, rales or rhonchi HEART: Regular, rate controlled ABDOMEN: Soft, NT, ND, BS Present INTEGUMENTARY: Wide spread psoriasis. Some erythematous areas that may be fungal. No oozing or pus appreciated EXTREMITIES: No LE edema, pedal pulses intact and equal bilaterally. Dressing dry and intact to left great toe. NEURO: A&OX3 Results & Data Results & Data Vital Signs (Past 12 Hours) Vital Signs Temp Pulse Resp BP Pulse Ox Pulse Ox O2 Del Method 03/31/24 07:55 36.4 C L 93 H 20 145/88 H 93 Room Air 03/31/24 07:22 90 16 93 Room Air 03/30/24 21:29 97 03/30/24 21:29 36.8 C 84 16 121/73 97 Room Air O2 Del Method 03/31/24 07:55 03/31/24 07:22 03/30/24 21:29 Room Air 03/30/24 21:29 Laboratory Results 03/28/24 07:42 03/28/24 07:42 Diagnostic Findings Foot x-ray 03/27/2024 Impression: Soft tissue swelling without acute fracture or dislocation identified Hip and pelvis x-ray 03/27/2024 Impression:Severe right osteoarthritis without evidence of acute fracture. PG Care Time/CCT Total # of Minutes Spent Total Time Spent with Patient: Total time spent is greater than 50% in coordination of care (as documented) at patient's floor/unit and/or counseling patient:40 minutes Coding Level of Care Code 03014 SUB INP/OBS CARE 2/35MIN Medical Decision Making Moderate Complexity Diagnoses Fall W19.XXXA Encounter type: initial encounter EMELY (obstructive sleep apnea) G47.33 Laceration of foot S91.319A Encounter type: initial encounter Laterality: unspecified laterality Prediabetes R73.03 Obesity E66.9 Psoriasis diffusa L40.8 Time Spent (min) 40 Comment 40 minutes over 2 visits (1) Fall Encounter type: initial encounter Qualified Code(s): W19.XXXA - Unspecified fall, initial encounter (3) Laceration of foot Encounter type: initial encounter Laterality: unspecified laterality Qualified Code(s): S91.319A - Laceration without foreign body, unspecified foot, initial encounter
[2024-03-31] MEDS: FLUCONAZOLE 100 MG TAB PO SCH (19:36)
--- NOTE | 2024-04-01 17:33 | Hospitalist Progress Note ---
Date of Service April 01, 2024 Assessment & Plan (1) Fall: Plan: Ambulatory dysfunction/ Physical Deconditioning / Hip OA Patient with recent admission and discharge to [facility]. Discharged from [facility] 03/26 and presented to ER 03/27 after fall after standing from toilet. Mechanical fall, no prodromal symptoms. -Pt aware physical therapy is to provide some short-term help, long-term improvement is going to be better achieved with weight loss and outpatient Ortho follow-up -PT and OT consulted - willing to go back to [facility] however, they will not accept - CM following - referral sent to [place] [facility] -Pain control with Acetaminophen 1000 mg; prn Toradol Holding off on home tramadol given history of OHS - working with patient at bedside. Patient has been deferring to for therapy (2) EMELY (obstructive sleep apnea): Plan: -Patient was recently recommended to start using a home CPAP. Machine has been delivered to his home but he has not yet started using it as he has not been home -Has been sleeping with oxygen supplementation through nasal cannula. Does not wear oxygen during the day at home -Again offered hospital CPAP but patient is refusing while admittied -Holding opioid analgesics as detailed above Patient Trilogy should be arriving at home soon - he is refusing to wear this in the hospital, stating he will only wear this at home because he does not like being hooked up to things. Offered use during the day to get accustomed to the appliance but he also refused daytime use (3) Laceration of foot: Plan: wound occured when being pulled out of the bathroom with EMS - sutured in the ER, removal in 14 days (from 03/27) -dressing change orders placed. -wound care consult with [facility] nurse requested (4) Prediabetes: Plan: A1c 6.3, On home Metformin 1000 mg bid (held) -Lantus and SSI (5) Obesity: Plan: Discussed need for frequent repositioning with nurse and with patient Unable to use Binh lift due to patients weight exceeded the safe weight of the lift Requested Bariatric bed that adjusts into a chair position and warehouse consultant working on a suitable bed (6) Psoriasis diffusa: Plan: Multiple skin lesions consistent with psoriasis and tinea crusis Will use Brigitte cream to affected areas - patient tolerating although cream has zinc oxide Diflucan 100mg PO daily X 4 doses started 03/31/2024 - seems improved on exam today Patient did not want to follow prior recommendations stating that products contained Zinc and it caused burning. He has been putting Vaseline on the affected areas. Long discussion about the risk of using occlusive ointment. Patient agreeable and will agree to see wound care and follow suggestions. Trial of Brigitte Cream containing Zinc Oxide. No burning. Patient agreed to continue use as tolerated Plan Chronic stable medical conditions: * HTN - continue metoprolol * CHF - last echo EF 60-65, small pericardial effusion, needs repeat in 1 month (from 03/06). Continue lasix daily * Morbid obesity - BMI 60.9 Dispo: continued inpatient stay pending placement Confirmed CODE STATUS 03/30/2024 VTE ppx: Lovenox BID Admission and Anticipated Discharge Date Admission Date: March 29, 2024 Supervising Physician Co-Signing Physician Notes Attending Attestation - Chart reviewed, care plan d/w EDI Giron. I agree w/ the march components of his documentation. Obed Fatima MD Subjective Attending: Dr. Fatima This is a 53-year-old male with admission on 03/27/2024 for ambulatory dysfunction resulting in fall and laceration of toes of left foot requiring sutures. Patient previously at [facility]. He has been referred back there this admission but they will not accept at this time. Referral was sent to [facility] and placement is pending. Patient continues with profound weakness and exacerbation of chronic psoriosis. No new acute complaints, fever, chills, n/v/d. Unable to get out of bed. No acute complaints today. Review of Systems 2 Review of Systems: A total of 10 systems was reviewed and is negative other than as listed in the HPI Physical Exam 2 Physical Exam: GENERAL : No acute distress EYES: No icterus, gaze conjugate NOSE: No evidence of epistaxis MOUTH: No lesions or candidiasis NECK: Supple LUNGS: CTA B/L, no wheezes, rales or rhonchi HEART: Regular, rate controlled ABDOMEN: Soft, NT, ND, BS Present EXTREMITIES: No LE edema, pedal pulses intact. Dressings removed from great toe on the left as well as fifth digit on left foot. No evidence of infection. Sutures in place and secure. NEURO: A&OX3 Results & Data Results & Data Vital Signs (Past 12 Hours) Vital Signs Temp Pulse Resp BP Pulse Ox O2 Del Method 04/01/24 14:58 36.4 C L 77 18 146/86 H 95 Room Air 04/01/24 10:34 89 18 92 Room Air 04/01/24 09:15 Room Air 04/01/24 07:51 87 18 93 Room Air 04/01/24 07:13 36.3 C L 81 18 138/99 95 Room Air Laboratory Results 03/28/24 07:42 03/28/24 07:42 PG Care Time/CCT Total # of Minutes Spent Total Time Spent with Patient: Total time spent is greater than 50% in coordination of care (as documented) at patient's floor/unit and/or counseling patient:25 Coding Level of Care Code 11528 SUB INP/OBS CARE 09/08MIN Diagnoses Fall W19.XXXA Encounter type: initial encounter EMELY (obstructive sleep apnea) G47.33 Laceration of foot S91.319A Encounter type: initial encounter Laterality: unspecified laterality Prediabetes R73.03 Obesity E66.9 Psoriasis diffusa L40.8 Time Spent (min) 25 (1) Fall Encounter type: initial encounter Qualified Code(s): W19.XXXA - Unspecified fall, initial encounter (3) Laceration of foot Encounter type: initial encounter Laterality: unspecified laterality Qualified Code(s): S91.319A - Laceration without foreign body, unspecified foot, initial encounter
[2024-04-02] MEDS: KETOROLAC TROMETHAMINE 15 MG/ML VIAL IV PRN (00:24)
[2024-04-02 08:03] LABS: BUN Creatinine Ratio 24.1 (10-20); Calcium 8.8 mg/dl (8.6-10.3); Creatinine Clr Calc Pharmacy 358.2 ml/min; Est GFR (African American) 139.9 ml/min; Est GFR (Non-African American) 120.7 ml/min; Magnesium 2.1 mg/dl (1.7-2.4); Potassium 4.3 mmol/L (3.5-5.1)
[2024-04-02 08:05] LABS: Basophils # (auto) 0.06 K/uL (0.00-0.20); Basophils % (auto) 0.7 %; Eosinophils # (auto) 0.79 K/uL (0.00-0.50); Hematocrit (blood only) 44.9 % (42.0-52.0); Hemoglobin 12.9 g/dl (14.0-18.0); Immature Granulocytes # (auto) 0.05 K/uL (0.01-0.20); Immature Granulocytes % (auto) 0.6 %; Lymphocytes # (auto) 2.12 K/uL (1.20-3.40); Lymphocytes % (auto) 24.1 %; Mean Corpuscular Hemoglobin 24.2 pg (25.0-34.0); Mean Corpuscular Hgb Conc 28.7 g/dL (32.0-36.0); Mean Corpuscular Volume 84.1 fL (80.0-100.0); Mean Platelet Volume 8.9 fL (9.4-12.4); Monocytes # (auto) 0.78 K/uL (0.11-0.59); Monocytes % (auto) 8.9 %; Neutrophils # (auto) 4.98 K/uL (1.40-6.50); Neutrophils % (auto) 56.7 %; Platelet Count 272 K/uL (130-400); RDW Coefficient of Variation 22.5 % (11.5-14.5); RDW Standard Deviation 66.5 fL (36.4-46.3); Red Blood Count 5.34 M/uL (4.70-6.10); White Blood Count 8.78 K/ul (4.8-10.8)
[2024-04-02 08:25] LABS: Anisocytosis Present
--- NOTE | 2024-04-02 14:33 | Hospitalist Progress Note ---
Date of Service April 02, 2024 Assessment & Plan (1) Fall: Plan: Ambulatory dysfunction/ Physical Deconditioning / Hip OA Patient with recent admission and discharge to [facility]. Discharged from [facility] 03/26 and presented to ER 03/27 after fall after standing from toilet. Mechanical fall, no prodromal symptoms. -Pt aware physical therapy is to provide some short-term help, long-term improvement is going to be better achieved with weight loss and outpatient Ortho follow-up -PT and OT consulted - willing to go back to [facility] however, they will not accept - CM following - [facility] will not accept, referrals sent to additional facilities 04/02. -Pain control with Acetaminophen 1000 mg; prn Toradol Holding off on home tramadol given history of OHS - working with patient at bedside. Patient has been deferring to for therapy (2) EMELY (obstructive sleep apnea): Plan: -Patient was recently recommended to start using a home CPAP. Machine has been delivered to his home but he has not yet started using it as he has not been home -Has been sleeping with oxygen supplementation through nasal cannula. Does not wear oxygen during the day at home -Again offered hospital CPAP but patient is refusing while admittied -Holding opioid analgesics as detailed above Patient Trilogy should be arriving at home soon - he is refusing to wear this in the hospital, stating he will only wear this at home because he does not like being hooked up to things. Offered use during the day to get accustomed to the appliance but he also refused daytime use (3) Laceration of foot: Plan: wound occured when being pulled out of the bathroom with EMS - sutured in the ER, removal in 14 days (from 03/27) -dressing change orders placed. -wound care consult with [facility] nurse requested (4) Obesity: Plan: Discussed need for frequent repositioning with nurse and with patient Unable to use Binh lift due to patients weight exceeded the safe weight of the lift Requested Bariatric bed that adjusts into a chair position and tobacco warehouse manager working on a suitable bed (5) Psoriasis diffusa: Plan: Multiple skin lesions consistent with psoriasis and tinea crusis Will use Brigitte cream to affected areas - patient tolerating although cream has zinc oxide Diflucan 100mg PO daily X 4 doses started 03/31/2024 Patient did not want to follow prior recommendations stating that products contained Zinc and it caused burning. He has been putting Vaseline on the affected areas. Long discussion about the risk of using occlusive ointment. Patient agreeable and will agree to see wound care and follow suggestions. Trial of Brigitte Cream containing Zinc Oxide. No burning. Patient agreed to continue use as tolerated Plan Chronic stable medical conditions: * HTN - continue metoprolol * CHF - last echo EF 60-65, small pericardial effusion, needs repeat in 1 month (from 03/06). Continue lasix daily * Morbid obesity - BMI 60.9 * Prediabetes - Home metformin held, Lantus and SSI Dispo: continued inpatient stay pending placement Confirmed CODE STATUS 03/30/2024 VTE ppx: Lovenox BID Admission and Anticipated Discharge Date Admission Date: March 29, 2024 Subjective Patient seen and examined this morning. Patients only complaint was hip pain which he states is his usual. He is anxious to return to a rehab facility to continue his care. He denied chest pain or shortness of breath. Physical Exam 2 Constitutional: WD/WN, vitals as above Eyes: PERRL, conjunctivae normal, anicteric sclerae Respiratory: normal respiratory effort, lungs clear to auscultation Cardiovascular: RRR, no murmur, no edema Skin: no rashes, warm and dry Psychiatric: A+Ox3, euthymic affect Results & Data Results & Data Vital Signs (Past 12 Hours) Vital Signs Temp Pulse Pulse Resp BP Pulse Ox O2 Del Method 04/02/24 13:58 36.6 C 78 18 144/91 H 95 Room Air 04/02/24 08:07 162/95 H 04/02/24 07:47 36.5 C 86 18 191/84 H 91 Room Air 04/02/24 07:07 78 18 98 Room Air Laboratory Results 04/02/24 06:59 04/02/24 06:59 PG Care Time/CCT Total # of Minutes Spent Total Time Spent with Patient: Total time spent is greater than 50% in coordination of care (as documented) at patient's floor/unit and/or counseling patient: Coding Level of Care Code 82724 SUB INP/OBS CARE 2/35MIN Diagnoses Fall W19.XXXA Encounter type: initial encounter EMELY (obstructive sleep apnea) G47.33 Laceration of foot S91.319A Encounter type: initial encounter Laterality: unspecified laterality Class 3 severe obesity with body mass index (BMI) of 60.0 to 69.9 in adult, unspecified obesity type, unspecified whether serious comorbidity present E66.01; Z68.44 Obesity type: unspecified obesity type Body mass index: BMI 60.0-69.9 Obesity classification: adult class 3 (BMI >= 40) Serious obesity comorbidity presence: unspecified whether serious comorbidity present Psoriasis diffusa L40.8 (1) Fall Encounter type: initial encounter Qualified Code(s): W19.XXXA - Unspecified fall, initial encounter (3) Laceration of foot Encounter type: initial encounter Laterality: unspecified laterality Qualified Code(s): S91.319A - Laceration without foreign body, unspecified foot, initial encounter (4) Obesity Obesity type: unspecified obesity type Body mass index: BMI 60.0-69.9 O besity classification: adult class 3 (BMI >= 40) Serious obesity comorbidity presence: unspecified whether serious comorbidity present Qualified Code(s): E 66.01 - Morbid (severe) obesity due to excess calories; Z68.44 - Body mass index [BMI] 60.0-69.9, adult
[2024-04-02] MEDS: ALBUT/IPRATROP 3MG/0.5MG NEB 3 ML VIAL NEB PRN (20:27)
[2024-04-02] MEDS: NEOMYCIN/POLYMYX/BACITR OINT 15 GM TUBE EXT PRN (22:32)
--- NOTE | 2024-04-03 14:08 | Hospitalist Progress Note ---
Date of Service April 03, 2024 Assessment & Plan (1) Fall: Plan: Ambulatory dysfunction/ Physical Deconditioning / Hip OA Patient with recent admission and discharge to [facility]. Discharged from [facility] 03/26 and presented to ER 03/27 after fall after standing from toilet. Mechanical fall, no prodromal symptoms. -Pt aware physical therapy is to provide some short-term help, long-term improvement is going to be better achieved with weight loss and outpatient Ortho follow-up -PT and OT consulted - willing to go back to [facility] however, they will not accept - CM following - [facility] will not accept, referrals sent to additional facilities 04/02. -Pain control with Acetaminophen 1000 mg; prn Toradol Holding off on home tramadol given history of OHS - working with patient at bedside. Patient has been deferring to for therapy (2) EMELY (obstructive sleep apnea): Plan: -Patient was recently recommended to start using a home CPAP. Machine has been d elivered to his home but he has not yet started using it as he has not been home -Has been sleeping with oxygen supplementation through nasal cannula. Does not wear oxygen during the day at home -Again offered hospital CPAP but patient is refusing while admittied -Holding opioid analgesics as detailed above Patient Trilogy should be arriving at home soon - he is refusing to wear this in the hospital, stating he will only wear this at home because he does not like being hooked up to things. Offered use during the day to get accustomed to the appliance but he also refused daytime use (3) Laceration of foot: Plan: wound occured when being pulled out of the bathroom with EMS - sutured in the ER, removal in 14 days (from 03/27) -dressing change orders placed. -wound care consult with [facility] nurse requested (4) Obesity: Plan: Discussed need for frequent repositioning with nurse and with patient Unable to use Binh lift due to patients weight exceeded the safe weight of the lift Requested Bariatric bed that adjusts into a chair position and hotel housekeeper working on a suitable bed (5) Psoriasis diffusa: Plan: Multiple skin lesions consistent with psoriasis and tinea crusis Will use Brigitte cream to affected areas - patient tolerating although cream has zinc oxide Diflucan 100mg PO daily X 4 doses started 03/31/2024 Patient did not want to follow prior recommendations stating that products contained Zinc and it caused burning. He has been putting Vaseline on the affected areas. Long discussion about the risk of using occlusive ointment. Patient agreeable and will agree to see wound care and follow suggestions. Trial of Brigitte Cream containing Zinc Oxide. No burning. Patient agreed to continue use as tolerated Plan Chronic stable medical conditions: * HTN - continue metoprolol * CHF - last echo EF 60-65, small pericardial effusion, needs repeat in 1 month (from 03/06). Continue lasix daily * Morbid obesity - BMI 60.9 * Prediabetes - Home metformin held, Lantus and SSI Dispo: continued inpatient stay pending placement Confirmed CODE STATUS 03/30/2024 VTE ppx: Lovenox BID Admission and Anticipated Discharge Date Admission Date: March 29, 2024 Subjective Patient seen and examined this morning. Patient denies any complaints. Physical Exam Constitutional: WD/WN, vitals as above Eyes: PERRL, conjunctivae normal, anicteric sclerae Respiratory: normal respiratory effort, lungs clear to auscultation Cardiovascular: RRR, no murmur, no edema Skin: no rashes, warm and dry Psychiatric: A+Ox3, euthymic affect Results & Data Results & Data Vital Signs (Past 12 Hours) Vital Signs Temp Pulse Resp BP Pulse Ox O2 Del Method 04/03/24 07:44 Room Air 04/03/24 07:31 36.5 C 82 18 153/91 H 92 Room Air PG Care Time/CCT Total # of Minutes Spent Total Time Spent with Patient: Total time spent is greater than 50% in coordination of care (as documented) at patient's floor/unit and/or counseling patient: Coding Level of Care Code 16693 SUB INP/OBS CARE 2/35MIN Diagnoses Fall W19.XXXA Encounter type: initial encounter EMELY (obstructive sleep apnea) G47.33 Laceration of foot S91.319A Encounter type: initial encounter Laterality: unspecified laterality Class 3 severe obesity with body mass index (BMI) of 60.0 to 69.9 in adult, unspecified obesity type, unspecified whether serious comorbidity present E66.01; Z68.44 Body mass index: BMI 60.0-69.9 Obesity classification: adult class 3 (BMI >= 40) Obesity type: unspecified obesity type Serious obesity comorbidity presence: unspecified whether serious comorbidity present Psoriasis diffusa L40.8 (1) Fall Encounter type: initial encounter Qualified Code(s): W19.XXXA - Unspecified fall, initial encounter (3) Laceration of foot Encounter type: initial encounter Laterality: unspecified laterality Qualified Code(s): S91.319A - Laceration without foreign body, unspecified foot, initial encounter (4) Obesity Body mass index: BMI 60.0-69.9 Obesity classification: adult class 3 (BMI >= 40) Obesity type: unspecified obesity type Serious obesity comorbidity presence: unspecified whether serious comorbidity present Qualified Code(s): E66.01 - Morbid (severe) obesity due to excess calories; Z68.44 - Body mass index [BMI] 60.0-69.9, adult
[2024-04-03] MEDS: POLYETHYLENE (MIRALAX) 17 GM PACK PO PRN (19:55)
--- NOTE | 2024-04-04 11:05 | Hospitalist Progress Note ---
Date of Service April 04, 2024 Assessment & Plan (1) Fall: Plan: Ambulatory dysfunction/ Physical Deconditioning / Hip OA Patient with recent admission and discharge to [facility]. Discharged from [facility] 03/26 and presented to ER 03/27 after fall after standing from toilet. Mechanical fall, no prodromal symptoms. -Pt aware physical therapy is to provide some short-term help, long-term improvement is going to be better achieved with weight loss and outpatient Ortho follow-up -PT and OT consulted - willing to go back to [facility] however, they will not accept - CM following - referrals sent to additional facilities 04/02. -Pain control with Acetaminophen 1000 mg; prn Toradol Holding off on home tramadol given history of OHS - working with patient at bedside. Patient has been deferring to for therapy (2) EMELY (obstructive sleep apnea): Plan: -Patient was recently recommended to start using a home CPAP. Machine has been delivered to his home but he has not yet started using it as he has not been home -Has been sleeping with oxygen supplementation through nasal cannula. Does not wear oxygen during the day at home -Again offered hospital CPAP but patient is refusing while admittied -Holding opioid analgesics as detailed above Patient Trilogy should be arriving at home soon - he is refusing to wear this in the hospital, stating he will only wear this at home because he does not like being hooked up to things. Offered use during the day to get accustomed to the appliance but he also refused daytime use (3) Laceration of foot: Plan: wound occured when being pulled out of the bathroom with EMS - sutured in the ER, removal in 14 days (from 03/27) -dressing change orders placed. -wound care consult with [facility] nurse requested (4) Obesity: Plan: Discussed need for frequent repositioning with nurse and with patient Unable to use Binh lift due to patients weight exceeded the safe weight of the lift Requested Bariatric bed that adjusts into a chair position and warehouse foreman working on a suitable bed (5) Psoriasis diffusa: Plan: Multiple skin lesions consistent with psoriasis and tinea crusis Will use Brigitte cream to affected areas - patient tolerating although cream has zinc oxide Diflucan 100mg PO daily X 4 doses started 03/31/2024 Patient did not want to follow prior recommendations stating that products contained Zinc and it caused burning. He has been putting Vaseline on the affected areas. Long discussion about the risk of using occlusive ointment. Patient agreeable and will agree to see wound care and follow suggestions. Trial of Brigitte Cream containing Zinc Oxide. No burning. Patient agreed to continue use as tolerated Plan Chronic stable medical conditions: * HTN - continue metoprolol * CHF - last echo EF 60-65, small pericardial effusion, needs repeat in 1 month (from 03/06). Continue lasix daily * Morbid obesity - BMI 60.9 * Prediabetes - Home metformin held, Lantus and SSI Dispo: continued inpatient stay pending placement Confirmed CODE STATUS 03/30/2024 VTE ppx: Lovenox BID Admission and Anticipated Discharge Date Admission Date: March 29, 2024 Subjective Patient seen and examined this AM. He denies any complaints. Physical Exam Constitutional: WD/WN, vitals as above Eyes: PERRL, conjunctivae normal, anicteric sclerae Respiratory: normal respiratory effort, lungs clear to auscultation Cardiovascular: RRR, no murmur, no edema Skin: no rashes, warm and dry Psychiatric: A+Ox3, euthymic affect Results & Data Results & Data Vital Signs (Past 12 Hours) Vital Signs Temp Pulse Resp BP Pulse Ox O2 Del Method 04/04/24 09:58 Room Air 04/04/24 08:59 87 18 91 Room Air 04/04/24 07:23 36.6 C 82 20 127/82 94 Room Air PG Care Time/CCT Total # of Minutes Spent Total Time Spent with Patient: Total time spent is greater than 50% in coordination of care (as documented) at patient's floor/unit and/or counseling patient: Coding Level of Care Code 68649 SUB INP/OBS CARE 2/35MIN Diagnoses Fall W19.XXXA Encounter type: initial encounter EMELY (obstructive sleep apnea) G47.33 Laceration of foot S91.319A Encounter type: initial encounter Laterality: unspecified laterality Class 3 severe obesity with body mass index (BMI) of 60.0 to 69.9 in adult, unspecified obesity type, unspecified whether serious comorbidity present E66.01; Z68.44 Body mass index: BMI 60.0-69.9 Obesity classification: adult class 3 (BMI >= 40) Obesity type: unspecified obesity type Serious obesity comorbidity presence: unspecified whether serious comorbidity present Psoriasis diffusa L40.8 (1) Fall Encounter type: initial encounter Qualified Code(s): W19.XXXA - Unspecified fall, initial encounter (3) Laceration of foot Encounter type: initial encounter Laterality: unspecified laterality Qualified Code(s): S91.319A - Laceration without foreign body, unspecified foot, initial encounter (4) Obesity Body mass index: BMI 60.0-69.9 Obesity classification: adult class 3 (BMI >= 40) Obesity type: unspecified obesity type Serious obesity comorbidity presence: unspecified whether serious comorbidity present Qualified Code(s): E66.01 - Morbid (severe) obesity due to excess calories; Z68.44 - Body mass index [BMI] 60.0-69.9, adult
--- NOTE | 2024-04-05 10:43 | Hospitalist Progress Note ---
Date of Service April 05, 2024 Assessment & Plan (1) Fall: Plan: Ambulatory dysfunction/ Physical Deconditioning / Hip OA Patient with recent admission and discharge to [facility]. Discharged from [facility] 03/26 and presented to ER 03/27 after fall after standing from toilet. Mechanical fall, no prodromal symptoms. -Pt aware physical therapy is to provide some short-term help, long-term improvement is going to be better achieved with weight loss and outpatient Ortho follow-up -PT and OT consulted - willing to go back to [facility] however, they will not accept - CM following - referrals sent to additional facilities 04/02. -Pain control with Acetaminophen 1000 mg; prn Toradol Holding off on home tramadol given history of OHS - working with patient at bedside. Patient has been deferring to for therapy (2) EMELY (obstructive sleep apnea): Plan: -Patient was recently recommended to start using a home CPAP. Machine has been delivered to his home but he has not yet started using it as he has not been home -Has been sleeping with oxygen supplementation through nasal cannula. Does not wear oxygen during the day at home -Again offered hospital CPAP but patient is refusing while admittied -Holding opioid analgesics as detailed above Patient Trilogy should be arriving at home soon - he is refusing to wear this in the hospital, stating he will only wear this at home because he does not like being hooked up to things. Offered use during the day to get accustomed to the appliance but he also refused daytime use (3) Laceration of foot: Plan: wound occured when being pulled out of the bathroom with EMS - sutured in the ER, removal in 14 days (from 03/27) -dressing change orders placed. -wound care consult with [facility] nurse requested (4) Obesity: Plan: Discussed need for frequent repositioning with nurse and with patient Unable to use Binh lift due to patients weight exceeded the safe weight of the lift Requested Bariatric bed that adjusts into a chair position and housekeeping associate working on a suitable bed Consider Ozempic as outpatient to assist in weight management? (5) Psoriasis diffusa: Plan: Multiple skin lesions consistent with psoriasis and tinea crusis Will use Brigitte cream to affected areas - patient tolerating although cream has zinc oxide Diflucan 100mg PO daily X 4 doses started 03/31/2024 Added hydrocortisone cream 04/04 with symptom improvement Patient did not want to follow prior recommendations stating that products contained Zinc and it caused burning. He has been putting Vaseline on the affected areas. Long discussion about the risk of using occlusive ointment. Patient agreeable and will agree to see wound care and follow suggestions. Trial of Brigitte Cream containing Zinc Oxide. No burning. Patient agreed to continue use as tolerated Plan Chronic stable medical conditions: * HTN - continue metoprolol * CHF - last echo EF 60-65, small pericardial effusion, needs repeat in 1 month (from 03/06). Continue lasix daily * Morbid obesity - BMI 60.9 * Prediabetes - Home metformin held, Lantus and SSI Dispo: anticipate discharge to [facility] 04/06. Confirmed CODE STATUS 03/30/2024 VTE ppx: Lovenox BID Admission and Anticipated Discharge Date Admission Date: March 29, 2024 Subjective Patient seen and examined this morning. Patient reports the hydrocortisone cream has helped his psoriasis overnight and he is thankful for the symptom relief. He denies any additional complaints. He was in a pleasant mood today. Anxious to return to a rehab facility. Physical Exam Constitutional: WD/WN, vitals as above Eyes: PERRL, conjunctivae normal, anicteric sclerae Respiratory: normal respiratory effort, lungs clear to auscultation Cardiovascular: RRR, no murmur, no edema Skin: no rashes, warm and dry Psychiatric: A+Ox3, euthymic affect Results & Data Results & Data Vital Signs (Past 12 Hours) Vital Signs Temp Pulse Resp BP Pulse Ox O2 Del Method 04/05/24 07:37 36.6 C 83 18 144/91 H 91 Room Air PG Care Time/CCT Total # of Minutes Spent Total Time Spent with Patient: Total time spent is greater than 50% in coordination of care (as documented) at patient's floor/unit and/or counseling patient: Coding Level of Care Code 31187 SUB INP/OBS CARE 2/35MIN Diagnoses Fall W19.XXXA Encounter type: initial encounter EMELY (obstructive sleep apnea) G47.33 Laceration of foot S91.319A Encounter type: initial encounter Laterality: unspecified laterality Class 3 severe obesity with body mass index (BMI) of 60.0 to 69.9 in adult, unspecified obesity type, unspecified whether serious comorbidity present E66.01; Z68.44 Body mass index: BMI 60.0-69.9 Obesity classification: adult class 3 (BMI >= 40) Obesity type: unspecified obesity type Serious obesity comorbidity presence: unspecified whether serious comorbidity present Psoriasis diffusa L40.8 (1) Fall Encounter type: initial encounter Qualified Code(s): W19.XXXA - Unspecified fall, initial encounter (3) Laceration of foot Encounter type: initial encounter Laterality: unspecified laterality Qualified Code(s): S91.319A - Laceration without foreign body, unspecified foot, initial encounter (4) Obesity Body mass index: BMI 60.0-69.9 Obesity classification: adult class 3 (BMI >= 40) Obesity type: unspecified obesity type Serious obesity comorbidity presence: unspecified whether serious comorbidity present Qualified Code(s): E66.01 - Morbid (severe) obesity due to excess calories; Z68.44 - Body mass index [BMI] 60.0-69.9, adult
[2024-04-05] MEDS: HYDROCORTISONE 2.5% CR 30 GM TUBE EXT PRN (20:52)
--- NOTE | 2024-04-06 13:43 | Hospitalist Progress Note ---
Date of Service April 06, 2024 Assessment & Plan (1) Fall: Plan: Ambulatory dysfunction/ Physical Deconditioning / Hip OA Patient with recent admission and discharge to [facility]. Discharged from [facility] 03/26 and presented to ER 03/27 after fall after standing from toilet. Mechanical fall, no prodromal symptoms. -Pt aware physical therapy is to provide some short-term help, long-term improvement is going to be better achieved with weight loss and outpatient Ortho follow-up -PT and OT consulted - willing to go back to [facility] however, they will not accept - CM following - referrals sent to additional facilities 04/02. -Pain control with Acetaminophen 1000 mg; prn Toradol Holding off on home tramadol given history of OHS - working with patient at bedside. Patient has been deferring to for therapy (2) EMELY (obstructive sleep apnea): Plan: -Patient was recently recommended to start using a home CPAP. Machine has been delivered to his home but he has not yet started using it as he has not been home -Has been sleeping with oxygen supplementation through nasal cannula. Does not wear oxygen during the day at home -Again offered hospital CPAP but patient is refusing while admittied -Holding opioid analgesics as detailed above Patient Trilogy should be arriving at home soon - he is refusing to wear this in the hospital, stating he will only wear this at home because he does not like being hooked up to things. Offered use during the day to get accustomed to the appliance but he also refused daytime use (3) Laceration of foot: Plan: wound occured when being pulled out of the bathroom with EMS - sutured in the ER, removal in 14 days (from 03/27) -dressing change orders placed. -wound care consult with [facility] nurse requested (4) Obesity: Plan: Discussed need for frequent repositioning with nurse and with patient Unable to use Binh lift due to patients weight exceeded the safe weight of the lift Requested Bariatric bed that adjusts into a chair position and hide house supervisor working on a suitable bed Consider Ozempic as outpatient to assist in weight management? (5) Psoriasis diffusa: Plan: Multiple skin lesions consistent with psoriasis and tinea crusis Will use Brigitte cream to affected areas - patient tolerating although cream has zinc oxide Diflucan 100mg PO daily X 4 doses started 03/31/2024 Added hydrocortisone cream 04/04 with symptom improvement Patient did not want to follow prior recommendations stating that products contained Zinc and it caused burning. He has been putting Vaseline on the affected areas. Long discussion about the risk of using occlusive ointment. Patient agreeable and will agree to see wound care and follow suggestions. Trial of Brigitte Cream containing Zinc Oxide. No burning. Patient agreed to continue use as tolerated Plan Chronic stable medical conditions: * HTN - continue metoprolol * CHF - last echo EF 60-65, small pericardial effusion, needs repeat in 1 month (from 03/06). Continue lasix daily * Morbid obesity - BMI 60.9 * Prediabetes - Home metformin held, Lantus and SSI Dispo: anticipate discharge to [facility] pending delivery of bariatric bed. Hopeful discharge over the weekend. Confirmed CODE STATUS 03/30/2024 VTE ppx: Lovenox BID Admission and Anticipated Discharge Date Admission Date: March 29, 2024 Subjective Patient seen and examined this morning. Patient denies any complaints Physical Exam Constitutional: WD/WN, vitals as above Eyes: PERRL, conjunctivae normal, anicteric sclerae Respiratory: normal respiratory effort, lungs clear to auscultation Cardiovascular: RRR, no murmur, no edema Psychiatric: A+Ox3, euthymic affect Results & Data Results & Data Vital Signs (Past 12 Hours) Vital Signs Temp Pulse Pulse Resp BP Pulse Ox O2 Del Method 04/06/24 12:40 84 18 92 Room Air 04/06/24 09:09 85 16 80 L Room Air 04/06/24 07:42 36.5 C 84 20 163/84 H 92 Room Air 04/06/24 07:40 Room Air PG Care Time/CCT Total # of Minutes Spent Total Time Spent with Patient: Total time spent is greater than 50% in coordination of care (as documented) at patient's floor/unit and/or counseling patient: Coding Level of Care Code 64033 SUB INP/OBS CARE 2/35MIN Diagnoses Fall W19.XXXA Encounter type: initial encounter EMELY (obstructive sleep apnea) G47.33 Laceration of foot S91.319A Encounter type: initial encounter Laterality: unspecified laterality Class 3 severe obesity with body mass index (BMI) of 60.0 to 69.9 in adult, unspecified obesity type, unspecified whether serious comorbidity present E66.01; Z68.44 Body mass index: BMI 60.0-69.9 Obesity classification: adult class 3 (BMI >= 40) Obesity type: unspecified obesity type Serious obesity comorbidity presence: unspecified whether serious comorbidity present Psoriasis diffusa L40.8 (1) Fall Encounter type: initial encounter Qualified Code(s): W19.XXXA - Unspecified fall, initial encounter (3) Laceration of foot Encounter type: initial encounter Laterality: unspecified laterality Qualified Code(s): S91.319A - Laceration without foreign body, unspecified foot, initial encounter (4) Obesity Body mass index: BMI 60.0-69.9 Obesity classification: adult class 3 (BMI >= 40) Obesity type: unspecified obesity type Serious obesity comorbidity presence: unspecified whether serious comorbidity present Qualified Code(s): E66.01 - Morbid (severe) obesity due to excess calories; Z68.44 - Body mass index [BMI] 60.0-69.9, adult
[2024-04-07] MEDS: KETOROLAC TROMETHAMINE 15 MG/ML VIAL IV PRN (00:18)
--- NOTE | 2024-04-07 13:07 | Hospitalist Progress Note ---
Date of Service April 07, 2024 Assessment & Plan (1) Fall: Plan: Ambulatory dysfunction/ Physical Deconditioning / Hip OA Patient with recent admission and discharge to [facility]. Discharged from [facility] 03/26 and presented to ER 03/27 after fall after standing from toilet. Mechanical fall, no prodromal symptoms. -Pt aware physical therapy is to provide some short-term help, long-term improvement is going to be better achieved with weight loss and outpatient Ortho follow-up -PT and OT consulted - willing to go back to [facility] however, they will not accept - CM following - accepted at [facility], wating for them to have all the equipment -Pain control with Acetaminophen 1000 mg, prn celebrex (home medication) and prn tramadol (reduced dose from home medication due to OHS) (2) EMELY (obstructive sleep apnea): Plan: -Patient was recently recommended to start using a home CPAP. Machine has been delivered to his home but he has not yet started using it as he has not been home -Has been sleeping with oxygen supplementation through nasal cannula. Does not wear oxygen during the day at home -Again offered hospital CPAP but patient is refusing while admitted Patient Trilogy should be arriving at home soon - he is refusing to wear this in the hospital, stating he will only wear this at home because he does not like being hooked up to things. Offered use during the day to get accustomed to the appliance but he also refused daytime use (3) Laceration of foot: Plan: wound occured when being pulled out of the bathroom with EMS - sutured in the ER, removal in 14 days (from 03/27) -dressing change orders placed. -wound care consult with [facility] nurse requested - pt requesting to use cream from home (BRIGITTE antifungal) (4) Obesity: Plan: Discussed need for frequent repositioning with nurse and with patient Unable to use Binh lift due to patients weight exceeded the safe weight of the lift Requested Bariatric bed that adjusts into a chair position and hospitality housekeeper working on a suitable bed (5) Psoriasis diffusa: Plan: Multiple skin lesions consistent with psoriasis and tinea crusis Will use Brigitte cream to affected areas - patient tolerating although cream has zinc oxide Diflucan 100mg PO daily X 4 doses started 03/31/2024 Added hydrocortisone cream 04/04 with symptom improvement Plan Chronic stable medical conditions: * HTN - continue metoprolol * CHF - last echo EF 60-65, small pericardial effusion, needs repeat in 1 month (from 03/06). Continue lasix daily - Will order echo for tuesday is patient is still here * Morbid obesity - BMI 60.9 * Prediabetes - Home metformin held, Lantus and SSI Dispo: anticipate discharge to [facility] pending delivery of bariatric bed. Confirmed CODE STATUS 03/30/2024 VTE ppx: Lovenox BID Admission and Anticipated Discharge Date Admission Date: March 29, 2024 Subjective Patient seen lying in bed. Talks about his chronic leg pain and food he likes to grill no acute concerns Physical Exam Physical Exam: General: NAD, morbidly obese VS as above Resp: normal respiratory effort, lungs diminished in the bases, no wheezing. On room air CV: RRR, no murmur, Extremities: Moves all extremities, no edema Neuro: A&O x3, Skin: intact, multiple lesions - many appearing like psorasis, erythema under bilateral breast. toe dressings c/d/i from sutures in ED Results & Data Results & Data Vital Signs (Past 12 Hours) Vital Signs Temp Pulse Resp BP Pulse Ox O2 Del Method 04/07/24 11:45 Room Air 04/07/24 09:00 85 20 90 Room Air 04/07/24 07:05 144/84 H 04/07/24 07:02 36.5 C 83 18 144/101 H 95 Room Air Laboratory Results POC glucose reviewed PG Care Time/CCT Total # of Minutes Spent Total Time Spent with Patient: Total time spent is greater than 50% in coordination of care (as documented) at patient's floor/unit and/or counseling patient: Coding Level of Care Code 49546 SUB INP/OBS CARE 2/35MIN Diagnoses Fall W19.XXXA Encounter type: initial encounter EMELY (obstructive sleep apnea) G47.33 Laceration of foot S91.319A Encounter type: initial encounter Laterality: unspecified laterality Class 3 severe obesity with body mass index (BMI) of 60.0 to 69.9 in adult, unspecified obesity type, unspecified whether serious comorbidity present E66.01; Z68.44 Obesity type: unspecified obesity type Obesity classification: adult class 3 (BMI >= 40) Serious obesity comorbidity presence: unspecified whether serious comorbidity present Body mass index: BMI 60.0-69.9 Psoriasis diffusa L40.8 (1) Fall Encounter type: initial encounter Qualified Code(s): W19.XXXA - Unspecified fall, initial encounter (3) Laceration of foot Encounter type: initial encounter Laterality: unspecified laterality Qualified Code(s): S91.319A - Laceration without foreign body, unspecified foot, initial encounter (4) Obesity Obesity type: unspecified obesity type Obesity classification: adult class 3 (BMI >= 40) Serious obesity comorbidity presence: unspecified whether serious comorbidity present Body mass index: BMI 60.0-69.9 Qualified Code(s): E66.01 - Morbid (severe) obesity due to excess calories; Z68.44 - Body mass index [BMI] 60.0-69.9, adult
[2024-04-07] MEDS: traMADol HCL 50 MG TABLET PO PRN (18:32)
[2024-04-07] MEDS: KETOROLAC TROMETHAMINE 15 MG/ML VIAL IV ONE (20:57)
[2024-04-08 07:36] LABS: BUN Creatinine Ratio 36.1 (10-20); Calcium 8.9 mg/dl (8.6-10.3); Creatinine Clr Calc Pharmacy 317.1 ml/min; Est GFR (African American) 133.1 ml/min; Est GFR (Non-African American) 114.8 ml/min; Potassium 4.6 mmol/L (3.5-5.1)
[2024-04-08] MEDS: ACETAMINOPHEN 325 MG TAB PO PRN (10:15)
--- NOTE | 2024-04-08 10:56 | Hospitalist Progress Note ---
Date of Service April 08, 2024 Assessment & Plan (1) Fall: Plan: Ambulatory dysfunction/ Physical Deconditioning / Hip OA Patient with recent admission and discharge to [facility]. Discharged from [facility] 03/26 and presented to ER 03/27 after fall after standing from toilet. Mechanical fall, no prodromal symptoms. -Pt aware physical therapy is to provide some short-term help, long-term improvement is going to be better achieved with weight loss and outpatient Ortho follow-up -PT and OT consulted - willing to go back to [facility] however, they will not accept - CM following - accepted at [facility], wating for them to have all the equipment -Pain control with Acetaminophen 1000 mg, prn celebrex (home medication) and prn tramadol (reduced dose from home medication due to OHS) (2) EMELY (obstructive sleep apnea): Plan: -Patient was recently recommended to start using a home CPAP. Machine has been delivered to his home but he has not yet started using it as he has not been home -Has been sleeping with oxygen supplementation through nasal cannula. Does not wear oxygen during the day at home -Again offered hospital CPAP but patient is refusing while admitted Patient Trilogy should be arriving at home soon - he is refusing to wear this in the hospital, stating he will only wear this at home because he does not like being hooked up to things. Offered use during the day to get accustomed to the appliance but he also refused daytime use (3) Laceration of foot: Plan: wound occured when being pulled out of the bathroom with EMS - sutured in the ER, removal in 14 days (from 03/27) -dressing change orders placed. -wound care consult with [facility] nurse requested - pt requesting to use cream from home (BRIGITTE antifungal) (4) Obesity: Plan: Discussed need for frequent repositioning with nurse and with patient Unable to use Binh lift due to patients weight exceeded the safe weight of the lift Requested Bariatric bed that adjusts into a chair position (5) Psoriasis diffusa: Plan: Multiple skin lesions consistent with psoriasis and tinea crusis Will use Brigitte cream to affected areas - patient tolerating although cream has zinc oxide Diflucan 100mg PO daily X 4 doses started 03/31/2024 Added hydrocortisone cream 04/04 with symptom improvement Plan Chronic stable medical conditions: * HTN - continue metoprolol * CHF - last echo EF 60-65, small pericardial effusion, needs repeat in 1 month (from 03/06). Continue lasix daily - Will order echo for tuesday is patient is still here * Morbid obesity - BMI 60.9 * Prediabetes - Home metformin held, Lantus and SSI Dispo: anticipate discharge to [facility] pending delivery of bariatric bed . Confirmed CODE STATUS 03/30/2024 VTE ppx: Lovenox BID Admission and Anticipated Discharge Date Admission Date: March 29, 2024 Subjective Patient seen resting in bed. Worsening chronic pain today. Also reports headache that he gets when he is dehydrated - i refilled his water glass at bedside No other complaints Review of Systems Review of Systems: All systems reviewed & are unremarkable except as noted in Subjective Physical Exam Physical Exam: General: NAD, morbidly obese VS as above Resp: normal respiratory effort, lungs diminished in the bases, no wheezing. On room air CV: RRR, no murmur, Extremities: Moves all extremities, no edema Neuro: A&O x3, Skin: intact, multiple lesions - many appearing like psorasis, erythema under bilateral breast. Results & Data Results & Data Vital Signs (Past 12 Hours) Vital Signs Temp Pulse Resp BP Pulse Ox O2 Del Method 04/08/24 07:43 36.5 C 85 22 119/78 92 Room Air 04/08/24 07:30 80 20 88 L Room Air Laboratory Results BMP reviewed PG Care Time/CCT Total # of Minutes Spent Total Time Spent with Patient: Total time spent is greater than 50% in coordination of care (as documented) at patient's floor/unit and/or counseling patient: Coding Level of Care Code 13066 SUB INP/OBS CARE 09/08MIN Diagnoses Fall W19.XXXA Encounter type: initial encounter EMELY (obstructive sleep apnea) G47.33 Laceration of foot S91.319A Encounter type: initial encounter Laterality: unspecified laterality Class 3 severe obesity with body mass index (BMI) of 60.0 to 69.9 in adult, unspecified obesity type, unspecified whether serious comorbidity present E66.01; Z68.44 Obesity type: unspecified obesity type Obesity classification: adult class 3 (BMI >= 40) Serious obesity comorbidity presence: unspecified whether serious comorbidity present Body mass index: BMI 60.0-69.9 Psoriasis diffusa L40.8 (1) Fall Encounter type: initial encounter Qualified Code(s): W19.XXXA - Unspecified fall, initial encounter (3) Laceration of foot Encounter type: initial encounter Laterality: unspecified laterality Qualified Code(s): S91.319A - Laceration without foreign body, unspecified foot, initial encounter (4) Obesity Obesity type: unspecified obesity type Obesity classification: adult class 3 (BMI >= 40) Serious obesity comorbidity presence: unspecified whether serious comorbidity present Body mass index: BMI 60.0-69.9 Qualified Code(s): E66.01 - Morbid (severe) obesity due to excess calories; Z68.44 - Body mass index [BMI] 60.0-69.9, adult
[2024-04-09] MEDS: PERFLUTREN LIPID MICROSPHERE (DEFINITY) IV ONE (07:54)
[2024-04-09] MEDS: CELECOXIB 100 MG CAP PO PRN (09:08)
--- NOTE | 2024-04-09 15:13 | Hospitalist Progress Note ---
Date of Service April 09, 2024 Assessment & Plan (1) Fall: Plan: Ambulatory dysfunction/ Physical Deconditioning / Hip OA Patient with recent admission and discharge to [facility]. Discharged from [facility] 03/26 and presented to ER 03/27 after fall after standing from toilet. Mechanical fall, no prodromal symptoms. -Pt aware physical therapy is to provide some short-term help, long-term improvement is going to be better achieved with weight loss and outpatient Ortho follow-up -PT and OT consulted - willing to go back to [facility] however, they will not accept - CM following - accepted at [facility], wating for them to have all the equipment -Pain control with Acetaminophen 1000 mg, prn celebrex (home medication) and prn tramadol (reduced dose from home medication due to OHS) (2) EMELY (obstructive sleep apnea): Plan: -Patient was recently recommended to start using a home CPAP. Machine has been delivered to his home but he has not yet started using it as he has not been home -Has been sleeping with oxygen supplementation through nasal cannula. Does not wear oxygen during the day at home -Again offered hospital CPAP but patient is refusing while admitted Patient Trilogy should be arriving at home soon - he is refusing to wear this in the hospital, stating he will only wear this at home because he does not like being hooked up to things. Offered use during the day to get accustomed to the appliance but he also refused daytime use (3) Laceration of foot: Plan: wound occured when being pulled out of the bathroom with EMS - sutured in the ER, removal in 14 days (from 03/27) - will remove tomorrow -dressing change orders placed. -wound care consult with [facility] nurse requested - pt requesting to use cream from home (BRIGITTE antifungal) (4) Obesity: Plan: Discussed need for frequent repositioning with nurse and with patient Unable to use Binh lift due to patients weight exceeded the safe weight of the lift Requested Bariatric bed that adjusts into a chair position (5) Psoriasis diffusa: Plan: Multiple skin lesions consistent with psoriasis and tinea crusis Will use Brigitte cream to affected areas - patient tolerating although cream has z inc oxide Diflucan 100mg PO daily X 4 doses started 03/31/2024 Added hydrocortisone cream 04/04 with symptom improvement Plan Chronic stable medical conditions: * HTN - continue metoprolol * CHF - last echo EF 60-65, small pericardial effusion, needs repeat in 1 month (from 03/06). Continue lasix daily - repeat echo ordered, pending * Morbid obesity - BMI 60.9 * Prediabetes - Home metformin held, Lantus and SSI Dispo: anticipate discharge to [facility] pending delivery of bariatric bed . Confirmed CODE STATUS 03/30/2024 VTE ppx: Lovenox BID Admission and Anticipated Discharge Date Admission Date: March 29, 2024 Subjective patient seen lying in bed. Did have large BM today no other complaints awaiting placement Review of Systems Review of Systems: All systems reviewed & are unremarkable except as noted in Subjective Physical Exam Physical Exam: General: NAD, morbidly obese VS as above Resp: normal respiratory effort, no acessory muscle use. On room air Extremities: Moves all extremities, toe bandage c/d/i Neuro: A&O x3, Skin: intact, multiple lesions - many appearing like psorasis, erythema under bilateral breast. Results & Data Results & Data Vital Signs (Past 12 Hours) Vital Signs Temp Pulse Resp BP Pulse Ox O2 Del Method 04/09/24 11:12 36.4 C L 74 18 120/81 96 Room Air 04/09/24 09:30 Room Air 04/09/24 08:14 36.4 C L 82 16 111/73 93 Room Air 04/09/24 07:11 78 18 98 Room Air Laboratory Results POC glucose reviewed PG Care Time/CCT Total # of Minutes Spent Total Time Spent with Patient: Total time spent is greater than 50% in coordination of care (as documented) at patient's floor/unit and/or counseling patient: Coding Level of Care Code 64667 SUB INP/OBS CARE 2/35MIN Diagnoses Fall W19.XXXA Encounter type: initial encounter EMELY (obstructive sleep apnea) G47.33 Laceration of foot S91.319A Encounter type: initial encounter Laterality: unspecified laterality Class 3 severe obesity with body mass index (BMI) of 60.0 to 69.9 in adult, unspecified obesity type, unspecified whether serious comorbidity present E66.01; Z68.44 Obesity type: unspecified obesity type Obesity classification: adult class 3 (BMI >= 40) Serious obesity comorbidity presence: unspecified whether serious comorbidity present Body mass index: BMI 60.0-69.9 Psoriasis diffusa L40.8 (1) Fall Encounter type: initial encounter Qualified Code(s): W19.XXXA - Unspecified fall, initial encounter (3) Laceration of foot Encounter type: initial encounter Laterality: unspecified laterality Qualified Code(s): S91.319A - Laceration without foreign body, unspecified foot, initial encounter (4) Obesity Obesity type: unspecified obesity type Obesity classification: adult class 3 (BMI >= 40) Serious obesity comorbidity presence: unspecified whether serious comorbidity present Body mass index: BMI 60.0-69.9 Qualified Code(s): E66.01 - Morbid (severe) obesity due to excess calories; Z68.44 - Body mass index [BMI] 60.0-69.9, adult
--- NOTE | 2024-04-09 15:18 | XCELERA ---
[id number] \\[id number]
--- NOTE | 2024-04-10 12:13 | Hospitalist Progress Note ---
Date of Service April 10, 2024 Assessment & Plan (1) Fall: Plan: Ambulatory dysfunction/ Physical Deconditioning / Hip OA Patient with recent admission and discharge to [facility]. Discharged from [facility] 03/26 and presented to ER 03/27 after fall after standing from toilet. Mechanical fall, no prodromal symptoms. -Pt aware physical therapy is to provide some short-term help, long-term improvement is going to be better achieved with weight loss and outpatient Ortho follow-up -PT and OT consulted - pt has been refusing most sessions with out therapist and has been only doing exercises with his - CM following - accepted at [facility], wating for them to have all the equipment. Additional referrals have been sent -Pain control with Acetaminophen 1000 mg, prn celebrex (home medication) and prn tramadol (reduced dose from home medication due to OHS) (2) EMELY (obstructive sleep apnea): Plan: -Patient was recently recommended to start using a home CPAP. Machine has been delivered to his home but he has not yet started using it as he has not been home -Has been sleeping with oxygen supplementation through nasal cannula. Does not wear oxygen during the day at home -Again offered hospital CPAP but patient is refusing while admitted Patient Trilogy should be arriving at home soon - he is refusing to wear this in the hospital, stating he will only wear this at home because he does not like being hooked up to things. (3) Laceration of foot: Plan: wound occured when being pulled out of the bathroom with EMS - sutured in the ER on 03/27 - sutures removed today without issue -dressing change orders placed. -wound care consult with [facility] nurse requested - pt requesting to use cream from home (BRIGITTE antifungal) (4) Obesity: Plan: Discussed need for frequent repositioning with nurse and with patient Unable to use Binh lift due to patients weight exceeded the safe weight of the lift Requested Bariatric bed that adjusts into a chair position (5) Psoriasis diffusa: Plan: Multiple skin lesions consistent with psoriasis and tinea crusis Will use Brigitte cream to affected areas - patient tolerating although cream has zinc oxide Diflucan 100mg PO daily X 4 doses started 03/31/2024 Added hydrocortisone cream 04/04 with symptom improvement Plan Chronic stable medical conditions: * HTN - continue metoprolol * CHF - Continue lasix daily. Repeat Echo (hx of pericardial effusion) showed * Morbid obesity - BMI 60.9 * Prediabetes - Home metformin held, Lantus and SSI Dispo: anticipate discharge to [facility] pending delivery of bariatric bed. Confirmed CODE STATUS 03/30/2024 VTE ppx: Lovenox BID Admission and Anticipated Discharge Date Admission Date: March 29, 2024 Supervising Physician Co-Signing Physician Notes Attending Attestation - Chart reviewed, care plan d/w EDI Butler. I agree w/ the march components of her documentation. Obed Fatima MD Subjective Patient seen lying in bed, reports chronic hip pain. I discussed his current therapy regiment as he has been refusing to see out PT/OT and he states that he works out with his for an hour a day. Review of Systems Review of Systems: All systems reviewed & are unremarkable except as noted in Subjective Physical Exam Physical Exam: General: NAD, morbidly obese VS as above Resp: normal respiratory effort, no acessory muscle use. On room air cardio: RRR Extremities: Moves all extremities, 2 sutures removed from pinky toe and 2 sutures removed from big toe. No signs of infection, area was cleaned before removal and all 4 suture removed without difficulty Neuro: A&O x3, Skin: intact, multiple lesions - many appearing like psorasis, erythema under bilateral breast. Results & Data Results & Data Vital Signs (Past 12 Hours) Vital Signs Temp Pulse Resp BP Pulse Ox O2 Del Method 04/10/24 08:50 Room Air 04/10/24 07:13 91 Room Air 04/10/24 07:10 36.3 C L 83 20 135/87 84 L Room Air Laboratory Results POC glucose reviewed PG Care Time/CCT Total # of Minutes Spent Total Time Spent with Patient: Total time spent is greater than 50% in coordination of care (as documented) at patient's floor/unit and/or counseling patient: Coding Level of Care Code 51833 SUB INP/OBS CARE 2/35MIN Diagnoses Fall W19.XXXA Encounter type: initial encounter EMELY (obstructive sleep apnea) G47.33 Laceration of foot S91.319A Encounter type: initial encounter Laterality: unspecified laterality Class 3 severe obesity with body mass index (BMI) of 60.0 to 69.9 in adult, unspecified obesity type, unspecified whether serious comorbidity present E66.01; Z68.44 Body mass index: BMI 60.0-69.9 Obesity classification: adult class 3 (BMI >= 40) Obesity type: unspecified obesity type Serious obesity comorbidity presence: unspecified whether serious comorbidity present Psoriasis diffusa L40.8 (1) Fall Encounter type: initial encounter Qualified Code(s): W19.XXXA - Unspecified fall, initial encounter (3) Laceration of foot Encounter type: initial encounter Laterality: unspecified laterality Qualified Code(s): S91.319A - Laceration without foreign body, unspecified foot, initial encounter (4) Obesity Body mass index: BMI 60.0-69.9 Obesity classification: adult class 3 (BMI >= 40) Obesity type: unspecified obesity type Serious obesity comorbidity presence: unspecified whether serious comorbidity present Qualified Code(s): E66.01 - Morbid (severe) obesity due to excess calories; Z68.44 - Body mass index [BMI] 60.0-69.9, adult
--- NOTE | 2024-04-11 14:14 | Hospitalist Progress Note ---
Date of Service April 11, 2024 Assessment & Plan (1) Fall: Plan: Ambulatory dysfunction/ Physical Deconditioning / Hip OA Patient with recent admission and discharge to [facility]. Discharged from [facility] 03/26 and presented to ER 03/27 after fall after standing from toilet. Mechanical fall, no prodromal symptoms. -Pt aware physical therapy is to provide some short-term help, long-term improvement is going to be better achieved with weight loss and outpatient Ortho follow-up -PT and OT consulted - pt has been refusing most sessions with out therapist and has been only doing exercises with his - CM following - accepted at [facility], wating for them to have all the equipment. Additional referrals have been sent -Pain control with Acetaminophen 1000 mg, prn celebrex (home medication) and prn tramadol (reduced dose from home medication due to OHS) (2) EMELY (obstructive sleep apnea): Plan: -Patient was recently recommended to start using a home CPAP. Machine has been delivered to his home but he has not yet started using it as he has not been home -Has been sleeping with oxygen supplementation through nasal cannula. Does not wear oxygen during the day at home -Again offered hospital CPAP but patient is refusing while admitted Patient Trilogy should be arriving at home soon - he is refusing to wear this in the hospital, stating he will only wear this at home because he does not like being hooked up to things. Patient requesting home oxygen - CM aware (3) Laceration of foot: Plan: wound occured when being pulled out of the bathroom with EMS - sutured in the ER on 03/27 - sutures removed today without issue -dressing change orders placed. -wound care consult with [facility] nurse requested - pt requesting to use cream from home (BRIGITTE antifungal) (4) Obesity: Plan: Discussed need for frequent repositioning with nurse and with patient Unable to use Binh lift due to patients weight exceeded the safe weight of the lift Requested Bariatric bed that adjusts into a chair position (5) Psoriasis diffusa: Plan: Multiple skin lesions consistent with psoriasis and tinea crusis Will use Brigitte cream to affected areas - patient tolerating although cream has zinc oxide Diflucan 100mg PO daily X 4 doses started 03/31/2024 Added hydrocortisone cream 04/04 with symptom improvement Plan Chronic stable medical conditions: * HTN - continue metoprolol * CHF - Continue lasix daily. Repeat Echo (hx of pericardial effusion) showed * Morbid obesity - BMI 60.9 * Prediabetes - Home metformin held, Lantus and SSI Dispo: awaiting placement Confirmed CODE STATUS 03/30/2024 VTE ppx: Lovenox BID Admission and Anticipated Discharge Date Admission Date: March 29, 2024 Supervising Physician Co-Signing Physician Notes Attending Attestation - Chart reviewed, care plan d/w EDI Butler. I agree w/ the march components of her documentation. Obed Fatima MD Subjective Patient lying in bed, stil with chronic pain does not want to get out of bed just to try to stand as he feels like it is purposeless and just exacerbates his chronic pain now thinking he doesnt even want to go to rehab wants oxygen concentrator for home - CM updated Review of Systems Review of Systems: All systems reviewed & are unremarkable except as noted in Subjective Physical Exam Physical Exam: General: NAD, morbidly obese VS as above Resp: normal respiratory effort, diminished in bases, on 2L NC cardio: RRR Extremities: Moves all extremities Neuro: A&O x3, Skin: intact, multiple lesions - many appearing like psorasis, erythema under bilateral breast. Results & Data Results & Data Vital Signs (Past 12 Hours) Vital Signs Temp Pulse Resp BP Pulse Ox O2 Del Method O2 Flow Rate 04/11/24 09:15 77 17 91 Nasal Cannula 2 04/11/24 08:00 Nasal Cannula 2 04/11/24 07:44 36.5 C 75 20 107/71 94 Nasal Cannula 2 Laboratory Results POC glucose reviwed PG Care Time/CCT Total # of Minutes Spent Total Time Spent with Patient: Total time spent is greater than 50% in coordination of care (as documented) at patient's floor/unit and/or counseling patient: Coding Level of Care Code 27625 SUB INP/OBS CARE 09/08MIN Diagnoses Fall W19.XXXA Encounter type: initial encounter EMELY (obstructive sleep apnea) G47.33 Laceration of foot S91.319A Encounter type: initial encounter Laterality: unspecified laterality Class 3 severe obesity with body mass index (BMI) of 60.0 to 69.9 in adult, unspecified obesity type, unspecified whether serious comorbidity present E66.01; Z68.44 Body mass index: BMI 60.0-69.9 Obesity classification: adult class 3 (BMI >= 40) Obesity type: unspecified obesity type Serious obesity comorbidity presence: unspecified whether serious comorbidity present Psoriasis diffusa L40.8 (1) Fall Encounter type: initial encounter Qualified Code(s): W19.XXXA - Unspecified fall, initial encounter (3) Laceration of foot Encounter type: initial encounter Laterality: unspecified laterality Qualified Code(s): S91.319A - Laceration without foreign body, unspecified foot, initial encounter (4) Obesity Body mass index: BMI 60.0-69.9 Obesity classification: adult class 3 (BMI >= 40) Obesity type: unspecified obesity type Serious obesity comorbidity presence: unspecified whether serious comorbidity present Qualified Code(s): E66.01 - Morbid (severe) obesity due to excess calories; Z68.44 - Body mass index [BMI] 60.0-69.9, adult
[2024-04-12] MEDS: KETOROLAC TROMETHAMINE 15 MG/ML VIAL IV ONE (13:53)
--- NOTE | 2024-04-12 16:16 | Hospitalist Progress Note ---
Date of Service April 12, 2024 Assessment & Plan (1) Fall: Plan: Ambulatory dysfunction/ Physical Deconditioning / Hip OA Patient with recent admission and discharge to [facility]. Discharged from [facility] 03/26 and presented to ER 03/27 after fall after standing from toilet. Mechanical fall, no prodromal symptoms. -Pt aware physical therapy is to provide some short-term help, long-term improvement is going to be better achieved with weight loss and outpatient Ortho follow-up -PT and OT consulted - pt has been refusing most sessions with out therapist and has been only doing exercises with his . Did stand 04/11 with therapy - CM following - accepted at [facility], wating for them to have all the equipment. Additional referrals have been sent -Pain control with Acetaminophen 1000 mg, celebrex (home medication) and prn tramadol (reduced dose from home medication due to OHS) (2) CHF (congestive heart failure): Plan: Home dose is 80mg daily which patient has been receiving, however reporting headaches after taking lasix and states he has not always been taking this at home. states he will not take lasix tomorrow LE without pitting edema 04/12. Hold lasix for 04/13, check BMP in the morning. lasix is scheduled to resume 04/14 at 40meq (3) EMELY (obstructive sleep apnea): Plan: -Patient was recently recommended to start using a home CPAP. Machine has been delivered to his home but he has not yet started using it as he has not been home Paperwork was filled out during last for patient to have trilogy, however company was not notified when patient was discharged from [facility] so the machine has not been shipped. Patient requesting home oxygen - patient will need documented hypoxia on room air to qualify (however he goes to rehab, this becomes irrelevant) I suspect part of patient morning headaches have been related to his sleep apnea, but he continues to refuse to wear CPAP. (4) Laceration of foot: Plan: wound occured when being pulled out of the bathroom with EMS - sutured in the ER on 03/27 - sutures removed today without issue -dressing change orders placed. -wound care consult with [facility] nurse requested - pt requesting to use cream from home (BRIGITTE antifungal) (5) Obesity: Plan: Discussed need for frequent repositioning with nurse and with patient Unable to use Binh lift due to patients weight exceeded the safe weight of the lift Requested Bariatric bed that adjusts into a chair position (6) Psoriasis diffusa: Plan: Multiple skin lesions consistent with psoriasis and tinea crusis Will use Brigitte cream to affected areas - patient tolerating although cream has zinc oxide Diflucan 100mg PO daily X 4 doses started 03/31/2024 Added hydrocortisone cream 04/04 with symptom improvement Plan Chronic stable medical conditions: * HTN - continue metoprolol * Morbid obesity - BMI 60.9 * Prediabetes - Home metformin held, Lantus and SSI Dispo: awaiting placement Confirmed CODE STATUS 03/30/2024 VTE ppx: Lovenox BID Admission and Anticipated Discharge Date Admission Date: March 29, 2024 Supervising Physician Co-Signing Physician Notes Attending Attestation - Chart reviewed, care plan d/w EDI Butler. I agree w/ the march components of her documentation. Obed Fatima MD Subjective Patient seen lying in bed, complains of feeling terrible today. Very tired and bad headache. Says his headache comes on after taking the lasix and it dries him out too much Discussed the wheelchair situation - his has not purchased on yet Review of Systems Review of Systems: All systems reviewed & are unremarkable except as noted in Subjective Physical Exam Physical Exam: General: NAD, morbidly obese VS as above, appears uncomfortable Resp: normal respiratory effort, diminished in bases, on 2L NC cardio: RRR Extremities: Moves all extremities, non pitting edema Neuro: A&O x3, Skin: intact, multiple lesions - many appearing like psorasis, erythema under bilateral breast. Results & Data Results & Data Vital Signs (Past 12 Hours) Vital Signs Temp Pulse Pulse Resp BP Pulse Ox O2 Del Method 04/12/24 14:55 36.4 C L 71 18 133/79 97 Nasal Cannula 04/12/24 07:59 36.3 C L 75 18 160/83 H 91 Nasal Cannula 04/12/24 07:05 36.7 C 55 L 18 107/68 98 Room Air O2 Flow Rate 04/12/24 14:55 2 04/12/24 07:59 2 04/12/24 07:05 Laboratory Results POC BSG reviewed PG Care Time/CCT Total # of Minutes Spent Total Time Spent with Patient: Total time spent is greater than 50% in coordination of care (as documented) at patient's floor/unit and/or counseling patient: Coding Level of Care Code 91597 SUB INP/OBS CARE 235MIN Diagnoses Fall W19.XXXA Encounter type: initial encounter CHF (congestive heart failure) I50.9 EMELY (obstructive sleep apnea) G47.33 Laceration of foot S91.319A Encounter type: initial encounter Laterality: unspecified laterality Class 3 severe obesity with body mass index (BMI) of 60.0 to 69.9 in adult, unspecified obesity type, unspecified whether serious comorbidity present E66.01; Z68.44 Body mass index: BMI 60.0-69.9 Obesity classification: adult class 3 (BMI >= 40) Obesity type: unspecified obesity type Serious obesity comorbidity presence: unspecified whether serious comorbidity present Psoriasis diffusa L40.8 (1) Fall Encounter type: initial encounter Qualified Code(s): W19.XXXA - Unspecified fall, initial encounter (4) Laceration of foot Encounter type: initial encounter Laterality: unspecified laterality Qualified Code(s): S91.319A - Laceration without foreign body, unspecified foot, initial encounter (5) Obesity Body mass index: BMI 60.0-69.9 Obesity classification: adult class 3 (BMI >= 40) Obesity type: unspecified obesity type Serious obesity comorbidity presence: unspecified whether serious comorbidity present Qualified Code(s): E66.01 - Morbid (severe) obesity due to excess calories; Z68.44 - Body mass index [BMI] 60.0-69.9, adult
[2024-04-12] MEDS: CELECOXIB 100 MG CAP PO SCH (21:22)
[2024-04-13 04:20] LABS: Appearance Urine Clear (Clear); Bilirubin Urine Negative (Negative); Blood Urine Negative (Negative); Color Urine Yellow; Glucose Urine UA Negative (Negative); Ketones Urine Negative (Negative); Leukocyte Esterase Urine Negative (Negative); Nitrite Urine Negative (Negative); Protein Urine Negative (Negative); Specific Gravity Urine 1.023 (1.000-1.030); Urobilinogen Urine Negative (Negative); pH Urine 5.5 (4.5-7.5)
[2024-04-13] MEDS: SODIUM CHLORIDE 0.9% 250 ML IV ONE (04:21)
[2024-04-13] MEDS: KETOROLAC TROMETHAMINE 15 MG/ML VIAL IV ONE (05:30)
--- NOTE | 2024-04-13 08:01 | Ultrasound Report ---
RENAL ULTRASOUND CLINICAL HISTORY: "kidney pain" COMPARISON STUDY: CT of the abdomen and pelvis August 24, 2023. Right upper quadrant ultrasound Feb. TECHNIQUE: Sonography of the kidneys and the urinary bladder was performed. FINDINGS: The right kidney measures 13.3 cm and the left measures 12.9 cm. There is no hydronephrosis . Left kidney is largely obscured. No renal calculus or mass is identified. The bladder was not visua lized. IMPRESSION: Exam compromised due to suboptimal penetration. However, no abnormality identified by son ography. ACT 112: Negative or not required by law. Electronically signed by: Walter Mayen M.D. 04/13/2024 8:00 AM
[2024-04-13 09:01] LABS: Anion Gap 2 (3-11); Blood Urea Nitrogen 12 mg/dl (6-23); Calcium 8.8 mg/dl (8.6-10.3); Carbon Dioxide 40 mmol/L (21-32); Chloride 97 mmol/L (98-107); Creatinine Clr Calc Pharmacy 492.4 ml/min; Est GFR (African American) > 150.0 ml/min; Est GFR (Non-African American) 136.6 ml/min; Glucose 96 mg/dl (70-99(Fasting)); Potassium 4.2 mmol/L (3.5-5.1); Sodium 139 mmol/L (136-145)
--- NOTE | 2024-04-13 09:24 | Ultrasound Report ---
BLADDER ULTRASOUND HISTORY: Bladder pain. COMPARISON: None. FINDINGS: Transabdominal scanning of the bladder was performed with [employer] sales representative images submitted. The bladde r is not well-distended. No significant bladder wall thickening or bladder mass is identified. The ur eteral jets are not identified at this time. IMPRESSION: No sonographic abnormality within the bladder. ACT 112: Negative or not required by law. Electronically signed by: Alek Musa M.D. 04/13/2024 9:23 AM
[2024-04-13 10:02] LABS: Base Excess VBG 15.9 mEq/L; HCO3 VBG 45 mmol/L; Oxygen Saturation VBG 75.4 %; PCO2 VBG 78 mmHg (38-50); PO2 VBG 45 mmHg; pH VBG 7.37 (7.36-7.41)
[2024-04-13] MEDS: KETOROLAC TROMETHAMINE 15 MG/ML VIAL IV PRN (11:34)
[2024-04-13] MEDS: TAMSULOSIN HCL 0.4 MG CAP PO ONE (12:58)
--- NOTE | 2024-04-13 14:03 | Hospitalist Progress Note ---
Date of Service April 13, 2024 Assessment & Plan (1) Fall: Plan: Ambulatory dysfunction/ Physical Deconditioning / Hip OA Patient with recent admission and discharge to [facility]. Discharged from [facility] 03/26 and presented to ER 03/27 after fall after standing from toilet. Mechanical fall, no prodromal symptoms. -Pt aware physical therapy is to provide some short-term help, long-term improvement is going to be better achieved with weight loss and outpatient Ortho follow-up -PT and OT consulted - pt has been refusing most sessions with out therapist and has been only doing exercises with his . Did stand 04/11 with therapy - CM following - accepted at [facility], wating for them to have all the equipment. Additional referrals have been sent -Pain control with Acetaminophen 1000 mg, celebrex (home medication) and prn tramadol (reduced dose from home medication due to OHS) (2) CHF (congestive heart failure): Plan: Home dose is 80mg daily which patient has been receiving, however reporting headaches after taking lasix and states he has not always been taking this at home. states he will not take lasix tomorrow LE without pitting edema 04/12. Hold lasix for 04/13, check BMP in the morning. lasix is scheduled to resume 04/14 at 40meq (3) Back pain: Plan: patient with chronic hip and low back pain -overnight 04/12 reporting severe "kidney pain" -bladder and renal US without abnormality, infection or stone patient does report hx of kidney stones, unwilling to undergo CT - will trial flomax - BMP without EVA pain does improve with IV toradol (4) EMELY (obstructive sleep apnea): Plan: -Patient was recently recommended to start using a home CPAP. Machine has been delivered to his home but he has not yet started using it as he has not been home Paperwork was filled out during last for patient to have trilogy, however company was not notified when patient was discharged from [facility] so the machine has not been shipped. Patient requesting home oxygen - patient will need documented hypoxia on room air to qualify (however he goes to rehab, this becomes irrelevant) I suspect part of patient morning headaches have been related to his sleep apnea, but he continues to refuse to wear CPAP. Discussed his elevated CO2 on VBG this morning and patient again refusing CPAP (5) Laceration of foot: Plan: wound occured when being pulled out of the bathroom with EMS - sutured in the ER on 03/27 - sutures removed today without issue -dressing change orders placed. -wound care consult with [facility] nurse requested - pt requesting to use cream from home (BRIGITTE antifungal) (6) Obesity: Plan: Discussed need for frequent repositioning with nurse and with patient Unable to use Binh lift due to patients weight exceeded the safe weight of the lift Requested Bariatric bed that adjusts into a chair position (7) Psoriasis diffusa: Plan: Multiple skin lesions consistent with psoriasis and tinea crusis Will use Brigitte cream to affected areas - patient tolerating although cream has zinc oxide Diflucan 100mg PO daily X 4 doses started 03/31/2024 Added hydrocortisone cream 04/04 with symptom improvement Plan Chronic stable medical conditions: * HTN - continue metoprolol * Morbid obesity - BMI 60.9 * Prediabetes - Home metformin held, Lantus and SSI Dispo: awaiting placement Confirmed CODE STATUS 03/30/2024 VTE ppx: Lovenox BID Admission and Anticipated Discharge Date Admission Date: March 29, 2024 Supervising Physician Co-Signing Physician Notes Attending Attestation - Chart reviewed, care plan d/w EDI Butler. I agree w/ the march components of her documentation. Obed Fatima MD Subjective patient resting in bed. continues to report kidney pain, this does not wrap around to the front does report hx of kidney stones denies headache today again declines cpap Feels like he is making less urine Review of Systems Review of Systems: All systems reviewed & are unremarkable except as noted in Subjective Physical Exam Physical Exam: General: NAD, morbidly obese VS as above, appears uncomfortable Resp: normal respiratory effort, diminished in bases, on 2L NC cardio: RRR back: lower back bilateral tenderness, no CVA tenderness Extremities: Moves all extremities, non pitting edema Neuro: A&O x3, Skin: intact, multiple lesions - many appearing like psorasis, erythema under bilateral breast. Results & Data Results & Data Vital Signs (Past 12 Hours) Vital Signs Temp Pulse Pulse Resp BP Pulse Ox O2 Del Method 04/13/24 11:43 36.8 C 80 18 128/82 97 Nasal Cannula 04/13/24 07:45 Nasal Cannula 04/13/24 07:44 36.4 C L 84 84 17 120/88 97 Nasal Cannula O2 Flow Rate 04/13/24 11:43 04/13/24 07:45 2 04/13/24 07:44 Laboratory Results BMP and VBG reviewed PG Care Time/CCT Total # of Minutes Spent Total Time Spent with Patient: Total time spent is greater than 50% in coordination of care (as documented) at patient's floor/unit and/or counseling patient: Coding Level of Care Code 45651 SUB INP/OBS CARE 3/50MIN Diagnoses Fall W19.XXXA Encounter type: initial encounter CHF (congestive heart failure) I50.9 Back pain M54.9 EMELY (obstructive sleep apnea) G47.33 Laceration of foot S91.319A Encounter type: initial encounter Laterality: unspecified laterality Class 3 severe obesity with body mass index (BMI) of 60.0 to 69.9 in adult, unsp ecified obesity type, unspecified whether serious comorbidity present E66.01; Z68.44 Body mass index: BMI 60.0-69.9 Obesity classification: adult class 3 (BMI >= 40) Obesity type: unspecified obesity type Serious obesity comorbidity presence: unspecified whether serious comorbidity present Psoriasis diffusa L40.8 (1) Fall Encounter type: initial encounter Qualified Code(s): W19.XXXA - Unspecified fall, initial encounter (5) Laceration of foot Encounter type: initial encounter Laterality: unspecified laterality Qualified Code(s): S91.319A - Laceration without foreign body, unspecified foot, initial encounter (6) Obesity Body mass index: BMI 60.0-69.9 Obesity classification: adult class 3 (BMI &gt ;= 40) Obesity type: unspecified obesity type Serious obesity comorbidity presence: unspecified whether serious comorbidity present Qualified Code(s): E66.01 - Morbid (severe) obesity due to excess calories; Z68.44 - Body mass index [BMI] 60.0-69.9, adult
[2024-04-14 07:59] LABS: Anion Gap 2 (3-11); Blood Urea Nitrogen 12 mg/dl (6-23); Calcium 8.8 mg/dl (8.6-10.3); Carbon Dioxide 40 mmol/L (21-32); Chloride 99 mmol/L (98-107); Creatinine Clr Calc Pharmacy 492.4 ml/min; Est GFR (African American) > 150.0 ml/min; Est GFR (Non-African American) 136.6 ml/min; Glucose 106 mg/dl (70-99(Fasting)); Potassium 4.6 mmol/L (3.5-5.1); Sodium 141 mmol/L (136-145)
[2024-04-14] MEDS: FUROSEMIDE 40 MG TAB PO SCH (08:22)
--- NOTE | 2024-04-14 14:59 | Hospitalist Progress Note ---
Date of Service April 14, 2024 Assessment & Plan (1) Fall: Plan: Ambulatory dysfunction/ Physical Deconditioning / Hip OA Patient with recent admission and discharge to [facility]. Discharged from [facility] 03/26 and presented to ER 03/27 after fall after standing from toilet. Mechanical fall, no prodromal symptoms. -Pt aware physical therapy is to provide some short-term help, long-term improvement is going to be better achieved with weight loss and outpatient Ortho follow-up -PT and OT consulted - pt has been refusing most sessions with out therapist and has been only doing exercises with his . Did stand 04/11 with therapy - CM following - accepted at [facility], waiting for them to have all the equipment. Additional referrals have been sent -Pain controlled with Acetaminophen 1000 mg, celebrex (home medication) and prn tramadol (reduced dose from home medication due to OHS) (2) CHF (congestive heart failure): Plan: Home dose is 80mg daily which patient has been receiving, however reporting headaches after taking lasix and states he has not always been taking this at home. states he will not take lasix tomorrow -LE without pitting edema 04/12. -Lasix held 04/13, BMP reviewed, renal fxn WNL, Lasix 40mg daily was resumed 04/14 (3) Back pain: Plan: patient with chronic hip and low back pain -overnight 04/12 reporting severe "kidney pain" -bladder and renal US without abnormality, infection or stone patient does report hx of kidney stones, unwilling to undergo CT -Given a one time dose of flomax, voiding is improved today 04/14 -BMP reviewed and without EVA -Pain controlled and controlled with pain medication as outlined above (4) EMELY (obstructive sleep apnea): Plan: -Patient was recently recommended to start using a home CPAP. Machine has been delivered to his home but he has not yet started using it as he has not been home Paperwork was filled out during last for patient to have trilogy, however company was not notified when patient was discharged from [facility] so the machine has not been shipped. Patient requesting home oxygen - patient will need documented hypoxia on room air to qualify (however he goes to rehab, this becomes irrelevant) Suspect part of patient morning headaches have been related to his sleep apnea + hypercarbia, but he continues to refuse to wear CPAP. Discussed his elevated CO2 on VBG this morning and patient again refusing CPAP (5) Laceration of foot: Plan: wound occurred when being pulled out of the bathroom with EMS -sutured in the ER on 03/27 - sutures removed today without issue -dressing change orders placed. -wound care consult with [facility] nurse requested - pt requesting to use cream from home (BRIGITTE antifungal) (6) Obesity: Plan: Discussed need for frequent repositioning with nurse and with patient Unable to use Binh lift due to patients weight exceeded the safe weight of the lift Requested Bariatric bed that adjusts into a chair position (7) Psoriasis diffusa: Plan: Multiple skin lesions consistent with psoriasis and tinea cruris Will use Brigitte cream to affected areas - patient tolerating although cream has zinc oxide Completed 4 day course of Diflucan 100mg started 03/31/2024 Added hydrocortisone cream 04/04 with symptom improvement Plan Chronic stable medical conditions: * HTN - continue metoprolol * Morbid obesity - BMI 62.7 * Prediabetes - Home metformin held, Lantus and SSI Dispo: awaiting placement Confirmed CODE STATUS (Full code) 03/30/2024 VTE ppx: Lovenox BID Admission and Anticipated Discharge Date Admission Date: March 29, 2024 Supervising Physician Co-Signing Physician Notes Attending Attestation - Chart reviewed, care plan d/w EDI Cunha. I agree w/ the march components of her documentation. Obed Fatima MD Myla Navarrete is a 53 yo M who was admitted with fall that resulted in a laceration of left foot that was sutured, physical deconditioning and ambulatory dysfunction. He remains inpatient awaiting placement to skilled rehab. He was seen on rounds this morning, he continues to endorse back pain and right hip pain. He is asking when he can receive a dose of pain medication. He is noncompliant with cpap and has continued to refuse use during his stay. He denies cp or dyspnea. He is moving his bowels and voiding is improved. Review of Systems 2 Review of Systems: All systems reviewed and are unremarkable except as noted in HPI and below. Denies fever, chills, fatigue, headache, nasal congestion, sore throat, cough, chest pain, shortness of breath, palpitations, orthopnea, PND, abdominal pain, n/v/d, constipation, dysuria, hematuria, frequency, swelling, easy bruising or bleeding. Physical Exam 2 Physical Exam: GENERAL: 53 yo morbidly obese WM. Awake, alert, oriented x3. Cooperative. NAD. LUNGS: Clear to auscultation bilaterally. No W/R/R. CARDIOVASCULAR: Regular rate and rhythm. ABDOMEN: Soft, non-tender and non-distended. No palpable masses. Bowel sounds normoactive x 4 quad. EXTREMITIES: No edema. Non-tender. Peripheral pulses +2/4. SKIN: left hallux dressed, dressing is dry. Scattered scaly salmon colored lesions noted over trunk and extremities c/w psoriasis. Results & Data Results & Data Vital Signs (Past 12 Hours) Vital Signs Temp Pulse Resp BP Pulse Ox O2 Del Method O2 Flow Rate 04/14/24 14:47 36.5 C 79 18 133/71 94 Nasal Cannula 2 04/14/24 13:38 Nasal Cannula 2 04/14/24 10:51 74 20 96 Nasal Cannula 2 04/14/24 07:50 36.8 C 74 18 137/77 95 Room Air 04/14/24 07:36 36.7 C 79 22 124/87 96 Nasal Cannula 2 Laboratory Results 04/02/24 06:59 04/14/24 07:08 PG Care Time/CCT Total # of Minutes Spent Total Time Spent with Patient: Total time spent is greater than 50% in coordination of care (as documented) at patient's floor/unit and/or counseling patient: 37 minutes Coding Level of Care Code 86718 SUB INP/OBS CARE 2/35MIN Diagnoses Fall W19.XXXA Encounter type: initial encounter CHF (congestive heart failure) I50.9 Back pain M54.9 EMELY (obstructive sleep apnea) G47.33 Laceration of foot S91.319A Encounter type: initial encounter Laterality: unspecified laterality Class 3 severe obesity with body mass index (BMI) of 60.0 to 69.9 in adult, unspecified obesity type, unspecified whether serious comorbidity present E66.01; Z68.44 Body mass index: BMI 60.0-69.9 Obesity classification: adult class 3 (BMI >= 40) Obesity type: unspecified obesity type Serious obesity comorbidity presence: unspecified whether serious comorbidity present Psoriasis diffusa L40.8 (1) Fall Encounter type: initial encounter Qualified Code(s): W19.XXXA - Unspecified fall, initial encounter (5) Laceration of foot Encounter type: initial encounter Laterality: unspecified laterality Qualified Code(s): S91.319A - Laceration without foreign body, unspecified foot, initial encounter (6) Obesity Body mass index: BMI 60.0-69.9 Obesity classification: adult class 3 (BMI >= 40) Obesity type: unspecified obesity type Serious obesity comorbidity presence: unspecified whether serious comorbidity present Qualified Code(s): E 66.01 - Morbid (severe) obesity due to excess calories; Z68.44 - Body mass index [BMI] 60.0-69.9, adult
--- NOTE | 2024-04-15 11:11 | Hospitalist Progress Note ---
Date of Service April 15, 2024 Assessment & Plan (1) Fall: Plan: Ambulatory dysfunction/ Physical Deconditioning / Hip OA Patient with recent admission and discharge to [facility]. Discharged from [facility] 03/26 and presented to ER 03/27 after fall after standing from toilet. Mechanical fall, no prodromal symptoms. - Pt aware physical therapy is to provide some short-term help, long-term improvement is going to be better achieved with weight loss and outpatient Ortho follow-up - PT and OT consulted - pt has been refusing most sessions with out therapist and has been only doing exercises with his . - CM following - accepted at [facility], waiting for them to have all the equipment. Additional referrals have been sent. - Pain controlled with Acetaminophen 1000 mg, prn toradol, and prn tramadol (reduced dose from home medication due to OHS) - Continues to report right-sided hip pain, denies pain radiating down leg or into groin. Refuses CT imaging. > No significant tenderness to palpation of trochanter to suspect trochanteric bursitis. Will defer steroids at this time. Continue pain regimen as noted above. (2) CHF (congestive heart failure): Plan: Home dose is 80mg daily which patient has been receiving, however reporting headaches after taking lasix and states he has not always been taking this at home. -Lasix held 04/13, BMP reviewed, renal fxn WNL, Lasix 40mg daily was resumed 04/14 (3) Back pain: Plan: patient with chronic hip and low back pain -overnight 04/12 reporting severe "kidney pain" -bladder and renal US without abnormality, infection or stone -patient does report hx of kidney stones, unwilling to undergo CT -Given a one time dose of flomax, voiding improved -BMP reviewed and without EVA -Pain controlled and controlled with pain medication as outlined above (4) EMELY (obstructive sleep apnea): Plan: -Patient was recently recommended to start using a home CPAP. Machine has been delivered to his home but he has not yet started using it as he has not been home Paperwork was filled out during last for patient to have trilogy, however company was not notified when patient was discharged from [facility] so the machine has not been shipped. Patient requesting home oxygen - patient will need documented hypoxia on room air to qualify (however he goes to rehab, this becomes irrelevant) Suspect part of patient morning headaches have been related to his sleep apnea + hypercarbia, but he continues to refuse to wear CPAP. Discussed his elevated CO2 on VBG and patient again refusing CPAP (5) Laceration of foot: Plan: wound occurred when being pulled out of the bathroom with EMS -sutured in the ER on 03/27 - sutures removed without issue -dressing change orders placed -wound care consult with [facility] nurse requested - pt requesting to use cream from home (BRIGITTE antifungal) (6) Obesity: Plan: Discussed need for frequent repositioning with nurse and with patient Unable to use Binh lift due to patients weight exceeded the safe weight of the lift Obtained Bariatric bed that adjusts into a chair position (7) Psoriasis diffusa: Plan: Multiple skin lesions consistent with psoriasis and tinea cruris Will use Brigitte cream to affected areas - patient tolerating although cream has zinc oxide Completed 4 day course of Diflucan 100mg started 03/31/2024 Added hydrocortisone cream 04/04 with symptom improvement Plan Chronic stable medical conditions: * HTN - continue metoprolol * Morbid obesity - BMI 62.7 * Prediabetes - Home metformin held, Lantus and SSI Dispo: awaiting placement CODE STATUS: Full code VTE ppx: Lovenox BID Admission and Anticipated Discharge Date Admission Date: March 29, 2024 Supervising Physician Co-Signing Physician Notes Attending Attestation - Chart reviewed, care plan d/w EDI Brooks. I agree w/ the march components of her documentation. Hip/back pain - patient encouraged to consider CT imaging of the lumbar spine, CT abd/pelvis, etc - patient declining such. Obed Fatima MD Subjective Patient seen and evaluated at bedside. He continues to report a headache. Per nursing, he is noncompliant with his CPAP and refuses to wear it during his stay here. I discussed with the patient that I suspect his headache is related to his sleep apnea and hypercarbia, but he dismisses this. Patient is requesting stronger pain medication. He also continues to report right-sided hip pain and back pain. We discussed getting a CT of his lumbar spine, but patient refuses and states "I know what is wrong with me and there is nothing to do about it." We also discussed getting a CT of his abdomen/pelvis, as repeat in 6 months was recommended back in August 2023 due to multiple mildly enlarged lymph nodes. He refuses this as well and states the hassle of going down to CT is not worth the information obtained. He continues to remain noncompliant with PT/OT. He denies chest pain, shortness of breath, difficulty breathing, abdominal pain, nausea, or problem with bladder/bowel habits. Physical Exam Physical Exam: General: No acute distress, nondiaphoretic, morbidly obese. slightly disheveled appearance. Skin: Left hallux dressed, dressing is clean, dry, intact. Scattered scaly salmon colored lesions noted over trunk and extremities consistent with pso riasis. Cardiac: Regular rate and rhythm without murmurs gallops or rubs. Pulm: Clear to auscultation bilaterally without wheezes, rales or rhonchi. No respiratory distress. 94% on 2L. Abdominal: Soft, non-tender, non-distended. Bowel sounds present. Neuro: A&O x3. No focal neurological deficits. Results & Data Results & Data Vital Signs (Past 12 Hours) Vital Signs Temp Pulse Resp BP Pulse Ox O2 Del Method O2 Flow Rate 04/15/24 08:30 Nasal Cannula 2 04/15/24 07:11 36.3 C L 81 16 138/91 94 Nasal Cannula 2 PG Care Time/CCT Total # of Minutes Spent Total Time Spent with Patient: Total time spent is greater than 50% in coordination of care (as documented) at patient's floor/unit and/or counseling patient: Coding Level of Care Code 16255 SUB INP/OBS CARE 2MIN Diagnoses Fall W19.XXXA Encounter type: initial encounter CHF (congestive heart failure) I50.9 Back pain M54.9 EMELY (obstructive sleep apnea) G47.33 Laceration of foot S91.319A Encounter type: initial encounter Laterality: unspecified laterality Class 3 severe obesity with body mass index (BMI) of 60.0 to 69.9 in adult, unspecified obesity type, unspecified whether serious comorbidity present E66.01; Z68.44 Body mass index: BMI 60.0-69.9 Obesity classification: adult class 3 (BMI >= 40) Obesity type: unspecified obesity type Serious obesity comorbidity presence: unspecified whether serious comorbidity present Psoriasis diffusa L40.8 (1) Fall Encounter type: initial encounter Qualified Code(s): W19.XXXA - Unspecified fall, initial encounter (5) Laceration of foot Encounter type: initial encounter Laterality: unspecified laterality Qualified Code(s): S91.319A - Laceration without foreign body, unspecified foot, initial encounter (6) Obesity Body mass index: BMI 60.0-69.9 Obesity classification: adult class 3 (BMI >= 40) Obesity type: unspecified obesity type Serious obesity comorbidity presence: unspecified whether serious comorbidity present Qualified Code(s): E66.01 - Morbid (severe) obesity due to excess calories; Z68.44 - Body mass index [BMI] 60.0-69.9, adult
--- NOTE | 2024-04-16 12:10 | Hospitalist Progress Note ---
Date of Service April 16, 2024 Assessment & Plan (1) Fall: Plan: Ambulatory dysfunction/ Physical Deconditioning / Hip OA Patient with recent admission and discharge to [facility]. Discharged from [facility] 03/26 and presented to ER 03/27 after fall after standing from toilet. Mechanical fall, no prodromal symptoms. - Pt aware physical therapy is to provide some short-term help, long-term improvement is going to be better achieved with weight loss and outpatient Ortho follow-up - PT and OT consulted - pt has been refusing most sessions with out therapist and has been only doing exercises with his . - CM following - accepted at [facility], waiting for them to have all the equipment. Additional referrals have been sent. - Pain controlled with Acetaminophen 1000 mg, prn toradol, and prn tramadol (reduced dose from home medication due to OHS) - Continues to report right-sided hip pain, denies pain radiating down leg or into groin. Refuses CT imaging. > No significant tenderness to palpation of trochanter to suspect trochanteric bursitis. Will defer steroids at this time. Continue pain regimen as noted above. (2) CHF (congestive heart failure): Plan: Home dose is 80mg daily which patient has been receiving, however reporting headaches after taking lasix and states he has not always been taking this at home. -Lasix held 04/13, BMP reviewed, renal fxn WNL, Lasix 40mg daily was resumed 04/14 (3) Back pain: Plan: patient with chronic hip and low back pain -overnight 04/12 reporting severe "kidney pain" -bladder and renal US without abnormality, infection or stone -patient does report hx of kidney stones, unwilling to undergo CT -Given a one time dose of flomax, voiding improved -BMP reviewed and without EVA -Pain controlled and controlled with pain medication as outlined above (4) EMELY (obstructive sleep apnea): Plan: -Patient was recently recommended to start using a home CPAP. Machine has been delivered to his home but he has not yet started using it as he has not been home Paperwork was filled out during last for patient to have trilogy, however company was not notified when patient was discharged from [facility] so the machine has not been shipped. Patient requesting home oxygen - patient will need documented hypoxia on room air to qualify (however he goes to rehab, this becomes irrelevant) Suspect part of patient morning headaches have been related to his sleep apnea + hypercarbia, but he continues to refuse to wear CPAP. Discussed his elevated CO2 on VBG and patient again refusing CPAP (5) Laceration of foot: Plan: wound occurred when being pulled out of the bathroom with EMS -sutured in the ER on 03/27 - sutures removed without issue -dressing change orders placed -wound care consult with [facility] nurse requested - pt requesting to use cream from home (BRIGITTE antifungal) (6) Obesity: Plan: Discussed need for frequent repositioning with nurse and with patient Unable to use Binh lift due to patients weight exceeded the safe weight of the lift Obtained Bariatric bed that adjusts into a chair position (7) Psoriasis diffusa: Plan: Multiple skin lesions consistent with psoriasis and tinea cruris Will use Brigitte cream to affected areas - patient tolerating although cream has zinc oxide Completed 4 day course of Diflucan 100mg started 03/31/2024 Added hydrocortisone cream 04/04 with symptom improvement Plan Chronic stable medical conditions: * HTN - continue metoprolol * Morbid obesity - BMI 62.7 * Prediabetes - Home metformin held, Lantus and SSI Dispo: awaiting placement CODE STATUS: Full code VTE ppx: Lovenox BID Admission and Anticipated Discharge Date Admission Date: March 29, 2024 Subjective Patient seen and examined this morning. patient reports his "kidney pain" is slowly improving. He states it comes and goes. When it does appear it is severe in nature. He states pain is worse with movement. Patient still refusing any further imaging. He is anxious to return back to a rehab facility to resume therapy. Denied any further complaints. Physical Exam 2 Constitutional: WD/WN, vitals as above Eyes: PERRL, conjunctivae normal, anicteric sclerae Respiratory: normal respiratory effort, lungs clear to auscultation Cardiovascular: RRR, no murmur, no edema Skin: Left hallux dressed, dressing is clean, dry, intact. Scattered scaly salmon colored lesions noted over trunk and extremities consistent with psoriasis. Psychiatric: A+Ox3, euthymic affect Results & Data Results & Data Vital Signs (Past 12 Hours) Vital Signs Temp Pulse Resp BP Pulse Ox O2 Del Method O2 Flow Rate 04/16/24 07:55 Nasal Cannula 2 04/16/24 07:12 36.6 C 81 16 140/101 H 92 Nasal Cannula 2 Laboratory Results 04/02/24 06:59 04/14/24 07:08 PG Care Time/CCT Total # of Minutes Spent Total Time Spent with Patient: Total time spent is greater than 50% in coordination of care (as documented) at patient's floor/unit and/or counseling patient: Coding Level of Care Code 23413 SUB INP/OBS CARE 2/35MIN Diagnoses Fall W19.XXXA Encounter type: initial encounter CHF (congestive heart failure) I50.9 Back pain M54.9 EMELY (obstructive sleep apnea) G47.33 Laceration of foot S91.319A Encounter type: initial encounter Laterality: unspecified laterality Class 3 severe obesity with body mass index (BMI) of 60.0 to 69.9 in adult, unspecified obesity type, unspecified whether serious comorbidity present E66.01; Z68.44 Body mass index: BMI 60.0-69.9 Obesity classification: adult class 3 (BMI >= 40) Obesity type: unspecified obesity type Serious obesity comorbidity presence: unspecified whether serious comorbidity present Psoriasis diffusa L40.8 (1) Fall Encounter type: initial encounter Qualified Code(s): W19.XXXA - Unspecified fall, initial encounter (5) Laceration of foot Encounter type: initial encounter Laterality: unspecified laterality Qualified Code(s): S91.319A - Laceration without foreign body, unspecified foot, initial encounter (6) Obesity Body mass index: BMI 60.0-69.9 Obesity classification: adult class 3 (BMI >= 40) Obesity type: unspecified obesity type Serious obesity comorbidity presence: unspecified whether serious comorbidity present Qualified Code(s): E 66.01 - Morbid (severe) obesity due to excess calories; Z68.44 - Body mass index [BMI] 60.0-69.9, adult
--- NOTE | 2024-04-17 12:16 | Hospitalist Progress Note ---
Date of Service April 17, 2024 Assessment & Plan (1) Fall: Plan: Ambulatory dysfunction/ Physical Deconditioning / Hip OA Patient with recent admission and discharge to [facility]. Discharged from [facility] 03/26 and presented to ER 03/27 after fall after standing from toilet. Mechanical fall, no prodromal symptoms. - Pt aware physical therapy is to provide some short-term help, long-term improvement is going to be better achieved with weight loss and outpatient Ortho follow-up - PT and OT consulted - pt has been refusing most sessions with out therapist and has been only doing exercises with his . - CM following - accepted at [facility], waiting for them to have all the equipment. Additional referrals have been sent. - Pain controlled with Acetaminophen 1000 mg, prn toradol, and prn tramadol (reduced dose from home medication due to OHS) - Continues to report right-sided hip pain, denies pain radiating down leg or into groin. Refuses CT imaging. > No significant tenderness to palpation of trochanter to suspect trochanteric bursitis. Will defer steroids at this time. Continue pain regimen as noted above. Patient requires a wheel chair in order to participate in daily activities of living. Patient currently bedbound and unable to ambulate on his own at this time. Script signed. (2) CHF (congestive heart failure): Plan: Home dose is 80mg daily which patient has been receiving, however reporting headaches after taking lasix and states he has not always been taking this at home. -Lasix held 04/13, BMP reviewed, renal fxn WNL, Lasix 40mg daily was resumed 04/14 (3) Back pain: Plan: patient with chronic hip and low back pain -overnight 04/12 reporting severe "kidney pain" -bladder and renal US without abnormality, infection or stone -patient does report hx of kidney stones, unwilling to undergo CT -Given a one time dose of flomax, voiding improved -BMP reviewed and without EVA -Pain controlled and controlled with pain medication as outlined above (4) EMELY (obstructive sleep apnea): Plan: -Patient was recently recommended to start using a home CPAP. Machine has been delivered to his home but he has not yet started using it as he has not been home Paperwork was filled out during last for patient to have trilogy, however company was not notified when patient was discharged from [facility] so the machine has not been shipped. Patient requesting home oxygen - patient will need documented hypoxia on room air to qualify (however he goes to rehab, this becomes irrelevant) Suspect part of patient morning headaches have been related to his sleep apnea + hypercarbia, but he continues to refuse to wear CPAP. Discussed his elevated CO2 on VBG and patient again refusing CPAP (5) Laceration of foot: Plan: wound occurred when being pulled out of the bathroom with EMS -sutured in the ER on 03/27 - sutures removed without issue -dressing change orders placed -wound care consult with [facility] nurse requested - pt requesting to use cream from home (BRIGITTE antifungal) (6) Obesity: Plan: Discussed need for frequent repositioning with nurse and with patient Unable to use Binh lift due to patients weight exceeded the safe weight of the lift Obtained Bariatric bed that adjusts into a chair position (7) Psoriasis diffusa: Plan: Multiple skin lesions consistent with psoriasis and tinea cruris Will use Brigitte cream to affected areas - patient tolerating although cream has zinc oxide Completed 4 day course of Diflucan 100mg started 03/31/2024 Added hydrocortisone cream 04/04 with symptom improvement Plan Patient was placed on a course of Augmentin twice daily for the next 7 days at his dentist from [place]'s request. probiotic was also added to avoid GI upset. Patient also met with layboy operator today who adjusted his diet to make his meal choices more flavorful per his request. Chronic stable medical conditions: * HTN - continue metoprolol * Morbid obesity - BMI 62.7 * Prediabetes - Home metformin held, Lantus and SSI Dispo: awaiting placement, anticipate discharge to rehab on 04/18 pending if equipment is ready CODE STATUS: Full code VTE ppx: Lovenox BID Admission and Anticipated Discharge Date Admission Date: March 29, 2024 Subjective Patient seen and examined this morning at bedside. Patient reports he spoke with his dentist from [place] on the phone who has recommended he be placed on antibiotics for his tooth issue. He is missing a crown that needs replaced. Patient also requesting to have increase in his pain medication as he feels his current regimen is not letting him sleep well at night due to pain. He is also asking for a change in his diet to make his foods more "flavorful". Physical Exam Constitutional: WD/WN, vitals as above Eyes: PERRL, conjunctivae normal, anicteric sclerae Respiratory: normal respiratory effort, lungs clear to auscultation Cardiovascular: RRR, no murmur, no edema Skin: Left hallux dressed, dressing is clean, dry, intact. Scattered scaly salmon colored lesions noted over trunk and extremities consistent with psoriasis. Psychiatric: A+Ox3, euthymic affect Results & Data Results & Data Vital Signs (Past 12 Hours) Vital Signs Temp Pulse Resp BP Pulse Ox O2 Del Method 04/17/24 07:31 86 18 94 Room Air 04/17/24 07:20 Room Air 04/17/24 07:03 36.4 C L 84 18 115/65 94 Room Air PG Care Time/CCT Total # of Minutes Spent Total Time Spent with Patient: Total time spent is greater than 50% in coordination of care (as documented) at patient's floor/unit and/or counseling patient: Coding Level of Care Code 42219 SUB INP/OBS CARE 2/35MIN Diagnoses Fall W19.XXXA Encounter type: initial encounter CHF (congestive heart failure) I50.9 Back pain M54.9 EMELY (obstructive sleep apnea) G47.33 Laceration of foot S91.319A Encounter type: initial encounter Laterality: unspecified laterality Class 3 severe obesity with body mass index (BMI) of 60.0 to 69.9 in adult, unspecified obesity type, unspecified whether serious comorbidity present E66.01; Z68.44 Body mass index: BMI 60.0-69.9 Obesity classification: adult class 3 (BMI >= 40) Obesity type: unspecified obesity type Serious obesity comorbidity presence: unspecified whether serious comorbidity present Psoriasis diffusa L40.8 (1) Fall Encounter type: initial encounter Qualified Code(s): W19.XXXA - Unspecified fall, initial encounter (5) Laceration of foot Encounter type: initial encounter Laterality: unspecified laterality Qualified Code(s): S91.319A - Laceration without foreign body, unspecified foot, initial encounter (6) Obesity Body mass index: BMI 60.0-69.9 Obesity classification: adult class 3 (BMI >= 40) Obesity type: unspecified obesity type Serious obesity comorbidity presence: unspecified whether serious comorbidity present Qualified Code(s): E66.01 - Morbid (severe) obesity due to excess calories; Z68.44 - Body mass index [BMI] 60.0-69.9, adult
[2024-04-17] MEDS: AMOXICILLIN/CLAVULANATE 875 MG TAB PO SCH (17:12)
[2024-04-18] MEDS: ADVANCED PROBIOTIC 625 MG CAPSULE PO SCH (09:08)
--- NOTE | 2024-04-18 13:34 | Hospitalist Progress Note ---
Date of Service April 18, 2024 Assessment & Plan (1) Fall: Plan: Ambulatory dysfunction/ Physical Deconditioning / Hip OA Patient with recent admission and discharge to [facility]. Discharged from [facility] 03/26 and presented to ER 03/27 after fall after standing from toilet. Mechanical fall, no prodromal symptoms. - Pt aware physical therapy is to provide some short-term help, long-term improvement is going to be better achieved with weight loss and outpatient Ortho follow-up - PT and OT consulted - pt has been refusing most sessions with out therapist and has been only doing exercises with his . - CM following - accepted at [facility], waiting for them to have all the equipment. Additional referrals have been sent. - Pain controlled with prn tramadol (reduced dose from home medication due to OHS) -Unfortunately due to patients OHS would recommend against increasing pain medication. -Switched to Tylenol 650mg four times daily - Continues to report right-sided hip pain, denies pain radiating down leg or into groin. Refuses CT imaging. > No significant tenderness to palpation of trochanter to suspect trochanteric bursitis. Will defer steroids at this time. Continue pain regimen as noted above. (2) CHF (congestive heart failure): Plan: Home dose is 80mg daily which patient has been receiving, however reporting headaches after taking lasix and states he has not always been taking this at home. -Lasix held 04/13, BMP reviewed, renal fxn WNL, Lasix 40mg daily was resumed 04/14 (3) Back pain: Plan: patient with chronic hip and low back pain -overnight 04/12 reporting severe "kidney pain" -bladder and renal US without abnormality, infection or stone -patient does report hx of kidney stones, unwilling to undergo CT -Given a one time dose of flomax, voiding improved -BMP reviewed and without EVA -Pain controlled and controlled with pain medication as outlined above (4) EMELY (obstructive sleep apnea): Plan: -Patient was recently recommended to start using a home CPAP. Machine has been delivered to his home but he has not yet started using it as he has not been home Paperwork was filled out during last for patient to have trilogy, however company was not notified when patient was discharged from [facility] so the machine has not been shipped. Patient requesting home oxygen - patient will need documented hypoxia on room air to qualify (however he goes to rehab, this becomes irrelevant) Suspect part of patient morning headaches have been related to his sleep apnea + hypercarbia, but he continues to refuse to wear CPAP. Discussed his elevated CO2 on VBG and patient again refusing CPAP (5) Laceration of foot: Plan: wound occurred when being pulled out of the bathroom with EMS -sutured in the ER on 03/27 - sutures removed without issue -dressing change orders placed -wound care consult with [facility] nurse requested - pt requesting to use cream from home (BRIGITTE antifungal) (6) Obesity: Plan: Discussed need for frequent repositioning with nurse and with patient Unable to use Binh lift due to patients weight exceeded the safe weight of the lift Obtained Bariatric bed that adjusts into a chair position (7) Psoriasis diffusa: Plan: Multiple skin lesions consistent with psoriasis and tinea cruris Will use Brigitte cream to affected areas - patient tolerating although cream has zinc oxide Completed 4 day course of Diflucan 100mg started 03/31/2024 Added hydrocortisone cream 04/04 with symptom improvement Plan Patient on Augmentin BID x 7 days. (started 04/17) at the recommendation of his dentist from [place]. Probiotic added to avoid GI upset. Chronic stable medical conditions: * HTN - continue metoprolol * Morbid obesity - BMI 62.7 * Prediabetes - Home metformin held, Lantus and SSI Dispo: awaiting placement CODE STATUS: Full code VTE ppx: Lovenox BID Admission and Anticipated Discharge Date Admission Date: March 29, 2024 Subjective Patient seen and examined this morning. Patient has been requesting higher pain medications due to increased amounts of pain in his right hip. Patient continues to refuse his CPAP machine at bedtime and oxygen via nasal cannula. Physical Exam Constitutional: WD/WN, vitals as above Eyes: PERRL, conjunctivae normal, anicteric sclerae Respiratory: normal respiratory effort, lungs clear to auscultation Cardiovascular: RRR, no murmur, no edema Skin: Left hallux dressed, dressing is clean, dry, intact. Scattered scaly salmon colored lesions noted over trunk and extremities consistent with psoriasis. Psychiatric: A+Ox3, euthymic affect Results & Data Results & Data Vital Signs (Past 12 Hours) Vital Signs Temp Pulse Pulse Resp BP Pulse Ox O2 Del Method 04/18/24 12:12 36.5 C 78 17 124/79 91 Room Air 04/18/24 09:19 90 21 90 Room Air 04/18/24 07:56 36.3 C L 95 H 17 134/89 93 Room Air 04/18/24 07:50 Room Air PG Care Time/CCT Total # of Minutes Spent Total Time Spent with Patient: Total time spent is greater than 50% in coordination of care (as documented) at patient's floor/unit and/or counseling patient: Coding Level of Care Code 21097 SUB INP/OBS CARE 2/35MIN Diagnoses Fall W19.XXXA Encounter type: initial encounter CHF (congestive heart failure) I50.9 Back pain M54.9 EMELY (obstructive sleep apnea) G47.33 Laceration of foot S91.319A Encounter type: initial encounter Laterality: unspecified laterality Class 3 severe obesity with body mass index (BMI) of 60.0 to 69.9 in adult, unspecified obesity type, unspecified whether serious comorbidity present E66.01; Z68.44 Body mass index: BMI 60.0-69.9 Obesity classification: adult class 3 (BMI >= 40) Obesity type: unspecified obesity type Serious obesity comorbidity presence: unspecified whether serious comorbidity present Psoriasis diffusa L40.8 (1) Fall Encounter type: initial encounter Qualified Code(s): W19.XXXA - Unspecified fall, initial encounter (5) Laceration of foot Encounter type: initial encounter Laterality: unspecified laterality Qualified Code(s): S91.319A - Laceration without foreign body, unspecified foot, initial encounter (6) Obesity Body mass index: BMI 60.0-69.9 Obesity classification: adult class 3 (BMI >= 40) Obesity type: unspecified obesity type Serious obesity comorbidity presence: unspecified whether serious comorbidity present Qualified Code(s): E66.01 - Morbid (severe) obesity due to excess calories; Z68.44 - Body mass index [BMI] 60.0-69.9, adult
[2024-04-18] MEDS ORDERED: ACETAMINOPHEN 325 MG TAB PO SCH (21:00)
[2024-04-18] MEDS: ACETAMINOPHEN 325 MG TAB PO SCH (21:21)
--- NOTE | 2024-04-19 14:18 | Hospitalist Progress Note ---
Date of Service April 19, 2024 Assessment & Plan (1) Fall: Plan: Ambulatory dysfunction/ Physical Deconditioning / Hip OA Patient with recent admission and discharge to [facility]. Discharged from [facility] 03/26 and presented to ER 03/27 after fall after standing from toilet. Mechanical fall, no prodromal symptoms. - Pt aware physical therapy is to provide some short-term help, long-term improvement is going to be better achieved with weight loss and outpatient Ortho follow-up - PT and OT consulted - pt has been refusing most sessions with out therapist and has been only doing exercises with his . - CM following - accepted at [facility], waiting for them to have all the equipment. Additional referrals have been sent. - Pain controlled with prn tramadol (reduced dose from home medication due to OHS) -Unfortunately due to patients OHS would recommend against increasing pain medication. -Switched to Tylenol 650mg four times daily -Patient not interested in pain management consult, advised to let someone know if he changes his mind. - Continues to report right-sided hip pain, denies pain radiating down leg or into groin. Refuses CT imaging. > No significant tenderness to palpation of trochanter to suspect trochanteric bursitis. Will defer steroids at this time. Continue pain regimen as noted above. (2) CHF (congestive heart failure): Plan: Home dose is 80mg daily which patient has been receiving, however reporting headaches after taking lasix and states he has not always been taking this at home. -Lasix held 04/13, BMP reviewed, renal fxn WNL, Lasix 40mg daily was resumed 04/14 (3) Back pain: Plan: patient with chronic hip and low back pain -overnight 04/12 reporting severe "kidney pain" -bladder and renal US without abnormality, infection or stone -patient does report hx of kidney stones, unwilling to undergo CT -Given a one time dose of flomax, voiding improved -BMP reviewed and without EVA -Pain controlled and controlled with pain medication as outlined above (4) EMELY (obstructive sleep apnea): Plan: -Patient was recently recommended to start using a home CPAP. Machine has been delivered to his home but he has not yet started using it as he has not been home Paperwork was filled out during last for patient to have trilogy, however company was not notified when patient was discharged from [facility] so the machine has not been shipped. Patient requesting home oxygen - patient will need documented hypoxia on room air to qualify (however he goes to rehab, this becomes irrelevant) Suspect part of patient morning headaches have been related to his sleep apnea + hypercarbia, but he continues to refuse to wear CPAP. Discussed his elevated CO2 on VBG and patient again refusing CPAP (5) Laceration of foot: Plan: wound occurred when being pulled out of the bathroom with EMS -sutured in the ER on 03/27 - sutures removed without issue -wound care consult with [facility] nurse requested - pt requesting to use cream from home (BRIGITTE antifungal) (6) Obesity: Plan: Discussed need for frequent repositioning with nurse and with patient Unable to use Binh lift due to patients weight exceeded the safe weight of the lift Obtained Bariatric bed that adjusts into a chair position (7) Psoriasis diffusa: Plan: Multiple skin lesions consistent with psoriasis and tinea cruris Will use Brigitte cream to affected areas - patient tolerating although cream has zinc oxide Completed 4 day course of Diflucan 100mg started 03/31/2024 Added hydrocortisone cream 04/04 with symptom improvement Plan Patient on Augmentin BID x 7 days. (started 04/17) at the recommendation of his dentist from [place]. Probiotic added to avoid GI upset. Chronic stable medical conditions: * HTN - continue metoprolol * Morbid obesity - BMI 62.7 * Prediabetes - Home metformin held, Lantus and SSI Dispo: awaiting placement CODE STATUS: Full code VTE ppx: Lovenox BID Admission and Anticipated Discharge Date Admission Date: March 29, 2024 Subjective Patient seen and examined this morning. Patient upset he is unable to receive more pain medication due to his OHS and EMELY. Did discuss with patient alternatives such as pain management and he was against this idea stating that they "did not help him in the past." Advised patient to consider this. Aside from right hip pain, he denies any further complaints. He was resting comfortably in bed at time of encounter. Physical Exam Constitutional: WD/WN, vitals as above Eyes: PERRL, conjunctivae normal, anicteric sclerae Respiratory: normal respiratory effort, lungs clear to auscultation Cardiovascular: RRR, no murmur, no edema Skin: Left hallux dressed, dressing is clean, dry, intact. Scattered scaly salmon colored lesions noted over trunk and extremities consistent with psoriasis. Psychiatric: A+Ox3, euthymic affect Results & Data Results & Data Vital Signs (Past 12 Hours) Vital Signs Temp Pulse Resp BP Pulse Ox O2 Del Method 04/19/24 07:11 36.4 C L 85 18 148/73 H 92 Room Air PG Care Time/CCT Total # of Minutes Spent Total Time Spent with Patient: Total time spent is greater than 50% in coordination of care (as documented) at patient's floor/unit and/or counseling patient: Coding Level of Care Code 92562 SUB INP/OBS CARE 2/35MIN Diagnoses Fall W19.XXXA Encounter type: initial encounter CHF (congestive heart failure) I50.9 Back pain M54.9 EMELY (obstructive sleep apnea) G47.33 Laceration of foot S91.319A Encounter type: initial encounter Laterality: unspecified laterality Class 3 severe obesity with body mass index (BMI) of 60.0 to 69.9 in adult, unspecified obesity type, unspecified whether serious comorbidity present E66.01; Z68.44 Body mass index: BMI 60.0-69.9 Obesity classification: adult class 3 (BMI >= 40) Obesity type: unspecified obesity type Serious obesity comorbidity presence: unspecified whether serious comorbidity present Psoriasis diffusa L40.8 (1) Fall Encounter type: initial encounter Qualified Code(s): W19.XXXA - Unspecified fall, initial encounter (5) Laceration of foot Encounter type: initial encounter Laterality: unspecified laterality Qualified Code(s): S91.319A - Laceration without foreign body, unspecified foot, initial encounter (6) Obesity Body mass index: BMI 60.0-69.9 Obesity classification: adult class 3 (BMI >= 40) Obesity type: unspecified obesity type Serious obesity comorbidity presence: unspecified whether serious comorbidity present Qualified Code(s): E66.01 - Morbid (severe) obesity due to excess calories; Z68.44 - Body mass index [BMI] 60.0-69.9, adult
[2024-04-19] MEDS: AMMONIUM LACTATE 12% LOTION 225 GM BTL EXT PRN (15:22)
[2024-04-20 07:50] VITALS: TEMP 97.6
--- NOTE | 2024-04-20 11:34 | Discharge Summary ---
Discharge Summary Date of Service April 20, 2024 Principal Dx & Hospital Course #1 = Principal Diagnosis (1) Fall: Ambulatory dysfunction/ Physical Deconditioning / Hip OA Patient with recent admission and discharge to [facility]. Discharged from [facility] 03/26 and presented to ER 03/27 after fall after standing from toilet. Mechanical fall, no prodromal symptoms. PT aware that PT is to provide short- term help and detention improvement is going to be better achieved with weight loss and outpatient ortho follow up. PT and OT consulted, patient prefers to do exercises with . He was originally refusing PT/OT at our facility but eventu ally was agreeable. Patient control with prn tramadol. His dose was reduced from his home medication dose due to OS and EMELY. Recommend continue 650mg Tylenol four times daily. Suggested pain management consult to candido on 04/19 but he was not interested. He refused further CT imaging as well. (2) CHF (congestive heart failure): Home Lasix dose resumed upon discharge. If patient continues to report headaches outpatient, consider 40mg Lasix dosage daily. (3) Back pain: patient with chronic hip and low back pain. On 04/12. Bladder and renal US were negative. He has hx of kidney stones but unwilling to undergo CT. He was given a one time dose of Flomax and voiding improved. BMP reviewed and w/o EVA. Pain was controlled with medication as above. (4) EMELY (obstructive sleep apnea): -Patient was recently recommended to start using a home CPAP. Machine has been delivered to his home but he has not yet started using it as he has not been home. Paperwork was filled out during his last hospital stay to have nScaled but company was not notified when patient was discharged from [facility] so machine was not shipped. Patient requesting home oxygen which he can discuss at rehab. Patient complained of morning headaches which are likely due to sleep apnea and hypercarbia but continues to refused CPAP. Discussion of elevated CO2 on VBG and patient still refused. (5) Laceration of foot: wound occurred when being pulled out of the bathroom with EMS. Wound sutured in ED on 03/27 and sutures were removed w/o issue. Wound care nurse followed. (6) Obesity: Discussed need for frequent repositioning with nurse and with patient Unable to use Binh lift due to patients weight exceeded the safe weight of the lift Obtained Bariatric bed that adjusts into a chair position (7) Psoriasis diffusa: Multiple skin lesions consistent with psoriasis and tinea cruris Will use Brigitte cream to affected areas - patient tolerating although cream has zinc oxide Completed 4 day course of Diflucan 100mg started 03/31/2024 Added hydrocortisone cream 04/04 with symptom improvement Plan Patient on Augmentin BID x 7 days. (started 04/17) at the recommendation of his dentist from [place]. Probiotic added to avoid GI upset. Patient's noticed pinpoint hole at base of scrotum 04/20. Scrotal US completed which was consistent with a skin defect. No fistula tract visualized. Chronic stable medical conditions: * HTN - continue metoprolol * Morbid obesity - BMI 62.7 * Prediabetes - Home metformin held, Lantus and SSI Updated with discharge planning 04/20. Admission HPI Per Admitting Provider Patient is a 53 y/o M w/ PMHx of HTN, Pre-diabetes, Morbid obesity, EMELY/OHS with recent addition of CPAP (hasn't gotten it yet), HFpEF, Psoriasis, and severe OA of hips with use of cane for ambulation at baseline who was brought to the ED due to fall earlier today. Patient was recently discharged from [facility] on 03/14/2024 after being managed for ARF secondary to what was thought to be OHS. During this recent admission, patient was noted to have significant pain secondary to his severe hip OA and was sent for physical therapy. He completed 1-week course of physical therapy and was discharged yesterday. Earlier today, he was walking to his bathroom which his describes as being very narrow especially for patient's size. When he was trying to stand from the toilet, patient felt unable to stand up as his knees were very weak and was feeling hip pain. Due to this, patient fell w/o preceding lightheadedness, chest pain, SOB, or other symptoms. Of note, patient spent almost the entire past admission laying down and when he was in physical therapy he was not stood up very much either, per patient's , and so he was laying down for the better part of the past 3 weeks. Given patient's weakness and difficulty for his to help him up if he falls due to his weakness, they were stating he needed more time of PT. ED Course: Given Toradol IM x1, laceration in toes of left foot sutured using lidocaine w/o epi Labs/Imaging: Renal panel and CBC ordered but not yet collected Medical History: [Reviewed] Medications: [Reviewed] Surgical History: [Reviewed] Family history: [Reviewed] Allergies: [Reviewed] Social History: [Reviewed] Discharge Exam Constitutional WD/WN, vitals as above Eyes PERRL, conjunctivae normal, anicteric sclerae Respiratory normal respiratory effort, lungs clear to auscultation Cardiovascular RRR, no murmur, no edema Skin psoriasis patches present over extremities and chest. Dry skin on b/l hands and b/l feet Psychiatric A+Ox3, euthymic affect Genitourinary scrotal examination revealed small pinpoint hole at baseline of scrotum Discharge Plan Discharge Items Patient Disposition: Transfer Inpatient Rehab Fac Reason For Visit: FALL Discharge Diagnosis: Ambulatory dysfunction Activity: Per Instructions section Activity Comment: per rehab Non-emergency contact: Primary Care Provider Call non-emergency contact if: you have any medication questions, your symptoms worsen, your pain is not controlled, your pain is worsening and your pain is unusual for you Follow-up/Referrals: PCP,NO [Primary Care Provider] - Diet: Carb Consistent or DM2 Addtl Attending Provider Instructions: Mr. Godinez, You were hospitalized following a fall after being discharged from rehab. It was recommended you return back to a rehab to regain your strength prior to ret urning home again. Please see recommendations below regarding your discharge. 1. Please resume previous outpatient medications. 2. Please continue on Augmentin twice daily for the next 4 days for your tooth Your first dose a rehab will be tonight 04/20 Please also take a probiotic daily while on this medication. You may take with food to avoid GI upset. 3. Please use Tramadol every 6 hours as needed for pain. 4. Please take Tylenol 650mg four times daily to help control your pain. 5. Please continue on the creams for your skin. 6. Please trial your Trilogy machine for your sleep apnea when it is delivered. If you develop any worsening pain, weakness, or dizziness please report back to the ER for further care. Sincerely, Bernadette Irving PA-C Pending Studies at Discharge: No Stand-Alone Forms: My [facility] Skilled Items Patient informed of condition?: Yes DNR: No Discharge Level of Care: Acute rehab Communicable Disease: No Discharge Prognosis: Stable Lines: None Urinary Catheter: No Medications and DC Order Prescriptions: New etodolac 200 mg capsule 200 mg PO Q12H PRN (Reason: pain) Qty: 14 0RF acetaminophen 325 mg Tablet 650 mg PO Q6H Qty: 60 0RF amoxicillin-pot clavulanate 875-125 mg Tablet 1 tab PO BIDM Qty: 7 0RF Triple Antibiotic 3.5mg-400 unit- 5,000 unit/gram Ointment 1 applic EXT BID PRN (Reason: skin irritation) Qty: 14 0RF tramadol 50 mg Tablet 50 mg PO Q6H PRN (Reason: pain) Qty: 30 0RF hydrocortisone 2.5 % cream 1 applic topical BID PRN (Reason: psoriasis) Qty: 14 0RF Lac-Hydrin Five 5 % Lotion 1 applic EXT DAILY PRN (Reason: dry skin) Qty: 226 0RF Continued celecoxib 100 mg capsule 100 mg PO BID PRN (Reason: Pain) ipratropium-albuterol 0.5 mg-3 mg(2.5 mg base)/3 mL Solution For Nebulization 3 ml NEB QIDR Qty: 90 0RF melatonin 3 mg Tablet 6 mg PO HS PRN (Reason: sleep) Qty: 60 0RF nystatin [Nystop] 100,000 unit/gram Powder 1 applic EXT DAILY PRN (Reason: Rash under skin folds) Qty: 15 0RF metformin 500 mg tablet extended release 24 hr 1,000 mg PO BID Combivent Respimat 20-100 mcg/actuation mist 1 puff INHALATION Q4 potassium chloride 10 mEq tablet,ER particles/crystals 10 meq PO AMPM pantoprazole 40 mg tablet,delayed release (DR/EC) 40 mg PO DAILYBB metoprolol tartrate 25 mg tablet 25 mg PO AMPM magnesium oxide 400 mg (241.3 mg magnesium) tablet 400 mg PO AMPM furosemide 80 mg tablet 80 mg PO .EVERY AFTERNOON Rx Instructions: does not want to take in morning since it interferes with therapy bacitracin zinc-polymyxin B [Polysporin] 500-10,000 unit/gram Ointment 1 applic TOPICAL Q8H Rx Instructions: apply to buttocks per Discontinued tramadol 50 mg Tablet 100 mg PO Q6H PRN (Reason: moderate pain (scale score 5-6)) Qty: 10 0RF Discharge Orders: Discharge Order (Routine); Ordered 04/20/24 Ordered By: Bernadette Huddleston/Other Patient Handouts: Prediabetes, 5 Steps for Eating Healthier, Preventing Deep Vein Thrombosis Admission Data Admit Date/Time: 03/29/24 10:28 Attending Provider: Fransisco Herron Admit Provider: Keith Robertson Primary Care Provider: PCP,NO Other Providers: Keith Robertson; [facility]; [place],[facility]; [facility]; [place],Rehab Other Interventions: Discharge Summary Assessment (RN) Last Done: 04/20/24 12:47 Hospital Stay Data Consultations 03/27/24 17:30 ED Decision to Admit Stat Diagnostic Imagining Performed 04/13/24 05:08 US Renal Bladder [US renal/blad retro comp] Routine 04/13/24 06:08 US retro bladder ltd Routine 04/20/24 10:17 US scrotum/testicle Routine Pending Results Patient Have Any Pending Studies at Discharge: No Discharge Instructions Given to Patient (Per Discharging Provider) Mr. Godinez, You were hospitalized following a fall after being discharged from rehab. It was recommended you return back to a rehab to regain your strength prior to returning home again. Please see recommendations below regarding your discharge. 1. Please resume previous outpatient medications. 2. Please continue on Augmentin twice daily for the next 4 days for your tooth Your first dose a rehab will be tonight 04/20 Please also take a probiotic daily while on this medication. You may take with food to avoid GI upset. 3. Please use Tramadol every 6 hours as needed for pain. 4. Please take Tylenol 650mg four times daily to help control your pain. 5. Please continue on the creams for your skin. 6. Please trial your Trilogy machine for your sleep apnea when it is delivered. If you develop any worsening pain, weakness, or dizziness please report back to the ER for further care. Sincerely, Bernadette Irving PA-C Total Time Total Time Spent Total Time Spent (In Minutes): 46 Total Time Includes: Examination of the Patient, Discharge Planning and Medication Reconciliation Coding Level of Care Code 15966 INP/OBS DISCH >30 MIN Diagnoses Fall W19.XXXA Encounter type: initial encounter CHF (congestive heart failure) I50.9 Back pain M54.9 EMELY (obstructive sleep apnea) G47.33 Laceration of foot S91.319A Encounter type: initial encounter Laterality: unspecified laterality Class 3 severe obesity with body mass index (BMI) of 60.0 to 69.9 in adult, unspecified obesity type, unspecified whether serious comorbidity present E66.01; Z68.44 Body mass index: BMI 60.0-69.9 Obesity classification: adult class 3 (BMI >= 40) Obesity type: unspecified obesity type Serious obesity comorbidity presence: unspecified whether serious comorbidity present Psoriasis diffusa L40.8
--- NOTE | 2024-04-20 11:41 | Ultrasound Report ---
TESTICULAR ULTRASOUND HISTORY: small opening in scrotum, concern for fistula? COMPARISON: None. FINDINGS: Right testis: 37 x 22 x 18 mm. There are no intratesticular masses. Normal color flow. No hydrocele. A 9 mm epididymal head cyst. Left testis: 31 x 19 x 24 mm. There are no intratesticular masses. Normal color flow. No hydrocele. T he epididymis was not well visualized. Miscellaneous: Additional scanning within the right side of the scrotum at the patient's area of inte rest demonstrates a tiny skin defect measuring approximately 3 mm. However, no fistula or fluid colle ctions deep to the small skin defect. IMPRESSION: 1. Normal bilateral testes. 2. A 9 mm right epididymal head cyst. 3. There is a 3 mm skin defect within the right side of the scrotum. However, no fistula or fluid col lection deep to the skin defect. ACT 112: Negative or not required by law. Electronically signed by: Alek Musa M.D. 04/20/2024 11:39 AM
[2024-04-20 11:47] VITALS: RESP 18; O2SAT 93
[2024-04-20 12:50] VITALS: BP 137/90; PULSE 78
== END 2024-04-20 15:37 | DRG 554 ==
LOC: ED 13:26 → 3W 13:26 → SUATTDRO 18:41 → 3W 22:00 → SUATTDRO 03-29 10:28

== ENCOUNTER 2025-04-22 01:47 | Inpatient (IN) ==
[2025-04-22 02:28] LABS: Hematocrit (blood only) 49.5 % (42.0-52.0); Hemoglobin 14.5 g/dl (14.0-18.0); Mean Corpuscular Hemoglobin 30.2 pg (25.0-34.0); Mean Corpuscular Volume 103.1 fL (80.0-100.0); Platelet Count 195 K/uL (130-400); RDW Standard Deviation 47.7 fL (36.4-46.3); Red Blood Count 4.80 M/uL (4.70-6.10); White Blood Count 10.70 K/ul (4.8-10.8)
[2025-04-22 02:29] LABS: Immature Granulocytes # (auto) 0.50 K/uL (0.01-0.20); Immature Granulocytes % (auto) 4.7 %
[2025-04-22 02:32] LABS: Alanine Aminotransferase 7.0 U/L (7-52); Albumin Globulin Ratio 1.2 (0.9-2); Alkaline Phosphatase 104.0 U/L (34-104); Anion Gap 6.0 (3-11); Bilirubin,Total 0.6 mg/dl (0.2-1.0); Blood Urea Nitrogen 13.0 mg/dl (6-23); Calcium 9.4 mg/dl (8.6-10.3); Carbon Dioxide 44.0 mmol/L (21-32); Chloride 94.0 mmol/L (98-107); Creatinine Clr Calc Pharmacy 411.5 ml/min; Globulin 3.3 gm/dl (2.5-4.0); Glucose 220.0 mg/dl (70-99(Fasting)); Magnesium 2.1 mg/dl (1.7-2.4); Potassium 3.9 mmol/L (3.5-5.1); Sodium 144.0 mmol/L (136-145); Total Protein 7.1 gm/dl (6.0-8.3)
[2025-04-22 02:36] LABS: iSTAT Art Bld Gas Base Excess 14.0 meg/L (-9-1.8); iSTAT Art Bld Gas pCO2 Correct 80 mmHg (35-46); iSTAT Art Bld Gas pH Corrected 7.308 (7.35-7.45); iSTAT Arterial Blood Gas pO2 C 136
[2025-04-22 02:36] LABS: Appearance Urine Cloudy (Clear); Bacteria Urine Automated 3+ (None Seen); Cast Urine Automated >20 /lpf (0-2); Glucose Urine UA Trace (Negative); RBC Urine Automated >20 /hpf (0-2); WBC Urine Automated 21-50 /hpf (0-5)
[2025-04-22] MEDS: SODIUM CHLORIDE 0.9% 500 ML IV ONE (02:38)
--- NOTE | 2025-04-22 03:03 | XRay Report ---
EXAM: XR chest 1V portable CLINICAL HISTORY: Dyspnea TECHNIQUE: An X-ray image of the chest is obtained in AP projection. COMPARISON: Prior XR 03/09/2024 FINDINGS: Pulmonary Parenchyma: The left lower lung zone and left costodiaphragmatic recess are out of the field. The scanned field shows progressive bilateral pulmonary opacities/infiltrates that could be inflammatory or secondary to pulmonary edema. Obliteration and leveling of the left lower lung zone may be secondary to pleural effusion. Heart and Mediastinum: Prominent hilar Widened superior mediastinum Cardiomegaly. Bony Thorax: Bony thorax appears intact without fractures or deformities. Soft Tissues: Chest leads Endotracheal tube 3.3cm above the [place] IMPRESSION: 1. Cardiomegaly. 2. The scanned field shows progressive (worsening) bilateral pulmonary opacities/infiltrates that could be inflammatory or secondary to pulmonary edema, which needs clinical correlation 3. A more widened superior mediastinum may be secondary to congested/enlarged vessels, yet may need further CT assessment if clinically warranted. 4. Obliteration and leveling of the left lower lung zone may be secondary to pleural effusion. 5. Endotracheal tube 3.3 cm above the [place] Electronically signed by Ridge Avalos 04-22-2025 03:02 AM
[2025-04-22 03:06] LABS: Amphetamines+Metham, Urine Neg (Neg); MDMA (Ecstacy), Urine Neg (Neg); Marijuana, Urine Neg (Neg)
[2025-04-22 03:18] LABS: Chlamydia pneumoniae PCR Not Detected (NotDetected); Coronavirus 229E PCR Not Detected (NotDetected); Coronavirus CoV-2 (COVID19)PCR Not Detected (NotDetected); Coronavirus HKU1 PCR Not Detected (NotDetected); Coronavirus NL63 PCR Not Detected (NotDetected); Coronavirus OC43PCR Not Detected (NotDetected); Human Metapneumovirus PCR Not Detected (NotDetected); Parainfluenza Virus 1 PCR Not Detected (NotDetected); Parainfluenza Virus 2 PCR Not Detected (NotDetected); Parainfluenza Virus 3 PCR Not Detected (NotDetected); Parainfluenza Virus 4 PCR Not Detected (NotDetected); Respiratory Syncytial VirusPCR Not Detected (NotDetected); Rhinovirus/Enterovirus PCR Not Detected (NotDetected)
[2025-04-22] MEDS ORDERED: STAT IV Infusion **Titration per Protocol STA ×2 (03:34→04:04)
[2025-04-22 03:36] LABS: iSTAT Art Bld Gas Base Excess 16.0 meg/L (-9-1.8); iSTAT Art Bld Gas pCO2 Correct 74 mmHg (35-46); iSTAT Art Bld Gas pH Corrected 7.349 (7.35-7.45); iSTAT Arterial Blood Gas pO2 C 48
--- NOTE | 2025-04-22 04:07 | CT Scan Report ---
EXAM: CT head/brain wo con CLINICAL HISTORY: Severe headache. TECHNIQUE: Axial non-contrast CT scan of the brain was performed from the skull base to the high parietal region. One of the following dose reduction techniques were utilized for this exam: Automated exposure control, adjustment of the mA and/or kV according to patient size, use of iterative reconstruction. COMPARISON: None available. FINDINGS: Brain Parenchyma: Normal attenuation of the cerebral hemispheres, cerebellum, and brainstem. No evidence of acute infarct, hemorrhage, or mass effect. No abnormal areas of hypo- or hyperattenuation. Ventricular System: Ventricles are normal in size and configuration. No evidence of hydrocephalus or ventricular enlargement. Subarachnoid Spaces: Normal sulci and cisterns. No evidence of subarachnoid hemorrhage or extra-axial fluid collections. Cerebellum and Brainstem: No masses, lesions, or areas of abnormal density. Orbits: Normal appearance of the globes, optic nerves, and extraocular muscles. No evidence of orbital masses or abnormal density. Sinuses: Clear paranasal sinuses. No evidence of sinusitis or mucosal thickening. Mastoid Air Cells: Clear mastoid air cells. No evidence of mastoiditis. Skull: Normal skull morphology. IMPRESSION: No acute intra-cranial pathology. Electronically signed by Ridge Avalos 04-22-2025 04:06 AM
[2025-04-22] MEDS: MIDAZOLAM HCL 1 MG/ML 2ML VIAL ONE (04:16)
[2025-04-22] MEDS: NOREPINEPHRINE/D5W 4 MG/250 ML IV ONE (04:17)
[2025-04-22] MEDS: MIDAZOLAM HCL 1 MG/ML 2ML VIAL IV STA (04:17)
[2025-04-22] MEDS: dexMEDEtomidine 200 MCG/50 ML BAG IV SCH (04:17)
[2025-04-22] MEDS: NOREPINEPHRINE/D5W 4 MG/250 ML PLCT IV SCH (04:37)
[2025-04-22 05:07] LABS: Creatine Kinase 15.0 U/L (30-223)
--- NOTE | 2025-04-22 05:08 | Emergency Department Note ---
Impression & Plan Acute hypercapnic respiratory failure admit to the ICU ED Provider Note NAME: STEFANO ZAMORA AGE: 54 SEX: Male INFORMANT: the patient's ED PROVIDER(S): Isabella Barone DO CHIEF COMPLAINT: shortness of breath PLAN: Disposition: admit to the ICU MEDICAL DECISION MAKING: This is a 54-year-old male patient with morbid obesity and a history of hypertension who presents with a sudden onset of shortness of breath. explains that he had developed a headache yesterday feeling well overall today. He had decreased food and liquid intake. Suddenly tonight, the patient turned diaphoretic and pale with an increased respiratory rate and then had severe shortness of breath. As she thought he was pulseless, The was given instructions over the phone to perform CPR. Upon EMS arrival, the patient was unresponsive in severe respiratory distress with an O2 saturation of 56% on room air was also noted to be significantly bradycardic. Patient was intubated easily and placed on the ventilator. His pupils were noted to be pinpoint and he remained unresponsive. He was given a dose of IV Narcan which seemed to cause him to regain consciousness. He then was becoming somewhat combative and trying to pull the endotracheal tube out. EMS called for medical command to sedate the patient. He was given 5 mg of IV Versed. Upon arrival in the emergency department, the patient was sedate. Vitals were stable except the O2 saturation was 83%. He was placed on our ventilator and respiratory therapy was able to increase the patient's PEEP to 10 which caused improvement in his O2 saturation above 90 percent. Portable chest x-ray showed bilateral pulmonary parenchymal fullness. Patient had a Perez catheter placed. He was placed into soft restraints so that he could not reach for the endotracheal tube. He was ordered for CT scan of the brain and chest. The head CT was completed but they were unable to complete the chest CT to rule out pulmonary embolus as the patient did not weighs over 200 kg and his body habitus precluded him from fitting into the CAT scanner. Laboratory studies obtained on the patient revealed no leukocytosis or anemia. Renal function was normal. Glucose was elevated at 220. The patient's carbon dioxide was 44. He had a normal magnesium level. He had normal LFTs and a normal troponin. BNP was 37. Urinalysis was concerning for possible infection. Urine drug screen was negative. Bio fire testing was negative. initial ABG obtained revealed a pH of 7.31, pCO2 of 80, O2 of 136 and bicarb of 40. This was repeated when the patient's mental status seemed to clear up and he was indicating wanting the tube to be removed. It really had not improved and still represented significant hypercapnia. pH was 7.32, pCO2 of 81, O2 was down to 56 and bicarb was up to 42. The patient will remain intubated at this time. The explains that he does not tolerate BiPAP and will refuse it. Patient will be admitted to the ICU Care/management discussed with: The patient's who is at the bedside and his sister and father who are on the phone. I discussed it with the [facility] Hospitalist and the critical care medicine team. Triage Nursing notes: reviewed and agree with them. Vital Signs: reviewed and remarkable for hypotension hypotension, although the patient had easily palpable and bounding radial and pedal pulses. Additional History obtained from: EMS and the patient's Chronic Medical/Social Conditions affecting care: Morbid obesity and hypercapnia I reviewed inpatient records from February 2024 Prior/ Outside/ External records reviewed: I reviewed inpatient records from February 2024 Differential Diagnosis: Intracranial process, hypercapnic respiratory failure, pneumonia, CHF Diagnostics, independently interpreted by me: ECG: Normal sinus rhythm at a rate of 84 with first-degree AV block. There were mildly peaked T waves. To be Cardiac Monitoring: normal sinus rhythm at 82 Imaging studies: portable chest x-ray: Endotracheal tube was in good position at 2.5 cm above the nakita; moderate pulmonary vascular congestion noted CT scan of the brain: As per [facility] HPI: 54 year old Male arrives for evaluation of shortness of breath. patient's explains that the patient had developed a headache yesterday and did not feel well throughout the day. He did not eat or drink very much. Last evening, the patient developed sudden and severe shortness of breath and diaphoresis. The patient became unresponsive and the called 911. She thought the patient was pulseless and CPR instructions were given over the phone. Upon EMS arrival, the patient was in severe respiratory distress and nearly unresponsive. They were able to provide supplemental oxygen and perform endotracheal intubation. the patient had pinpoint pupils and was given a dose of IV Narcan which seemed to reverse the patient's unresponsiveness. Patient's denies any opioids. They called medical command for orders to provide sedation to this patient so that he would not displace his endotracheal tube. He was given a dose of IV Versed. PAST MEDICAL HISTORY: See Below, PAST SURGICAL HISTORY: See Below, SOCIAL HISTORY: See Below, HOME MEDICATIONS: See list ALLERGIES: see list VITALS: See Below PHYSICAL EXAMINATION: HEENT: Head - normocephalic and atraumatic. Pupils are equal, round, and reactive to light. Extraocular eye muscles are intact, and sclera are anicteric. Nose - moist nasal mucosa without discharge. Mouth - moist buccal mucosa. Endotracheal tube is in place Neck: Supple; no JVD, nuchal rigidity, cervical lymphadenopathy, or auscultated bruits. Heart: Regular rate and rhythm. There is a normal S1 and S2 with no murmurs, clicks, or gallops appreciated. Lungs: Clear to auscultation bilaterally with no wheezes, rales, or rhonchi. Abdomen: Soft, completely nontender, nondistended, with good bowel sounds. There are no palpable pulsatile masses or hepatosplenomegaly. There is no guarding, rigidity, or rebound noted. Extremities: Patient has edema to both lower extremities although it is not significantly pitting. There are easily palpable peripheral pulses. Skin: warm and dry with scabbed over lesions on the right side of his body. Emergency Department treatment: security monitor, ventilator management, Perez catheter placement, IV normal saline bolus Emergency Department course: The patient was evaluated in B-1. Report was received from EMS. Patient was placed on our ventilator and given 10 of PEEP in order to improve O2 saturation. Portable chest x-ray was obtained. An order was placed for continuous cardiac monitoring. The patient was in a normal sinus rhythm at a rate of 82. Twelve-lead EKG was obtained as described above. Patient was noted to be hypotensive however I was not convinced that blood pressure reading was overly reliable given he had bounding radial and pedal pulses with good capillary refill. ABG was obtained which revealed mild respiratory acidosis but significant hypercapnia with an pCO2 of 88 and a bicarb of 40. Serum carbon dioxide was 44. Respiratory rate was increased on the ventilator. Patient was placed in soft restraints as to not pull the endotracheal tube out. He went for a CT scan of his head because of his complaint of headache. I ordered a CT scan of the chest to rule out PE but the patient's body habitus precluded him from having the CT scan. A Perez catheter was placed. Patient's blood pressure remained Upon returning from radiology, the patient's mental status seemed to significantly improved to the point that he was able to communicate with us and follow all commands. I had reservation about extubating this patient given his previous significant hypercapnia. We repeated the ABG which showed persistent respiratory acidosis with a pH of 7.32 pCO2 was actually slightly worse of 81 and bicarb was also elevated at 42. I discussed the case with the [facility] Hospitalist as well as the critical care team and they will evaluate for further inpatient care. Slightly low. He was bolused with 500 cc of crystalloid. Patient will be admitted to the ICU I have personally spent greater than 120 minutes of critical care time in the direct management of this patient. This includes bedside care, interpretation of diagnostic studies, and testing, discussion with consultants, patient, and family members, and other required patient management activities. This 120 minutes is in excess of all separately billable procedures. Past Med/Surg History Problem List (Updated 04/22/25 @ 11:28 by Felicity Iglesias MD) Hypotension Failure to thrive in adult Bilateral pulmonary infiltrates Restrictive lung disease Obesity hypoventilation syndrome Acute on chronic respiratory failure with hypoxia and hypercapnia Acute hypercapnic respiratory failure (Acute) Back pain CHF (congestive heart failure) Psoriasis diffusa Physical deconditioning Laceration of foot (Acute) Fall (Acute) HTN (hypertension), benign Restrictive lung disease secondary to obesity Degenerative arthritis Hypokalemia Tinea corporis Morbid obesity (Acute) Obesity Sinus pause EMELY (obstructive sleep apnea) Leanne's gangrene (Acute) Hypoxia (Acute) SOB (shortness of breath) Medical History Respiratory failure requiring intubation Prediabetes Candidiasis of mouth and esophagus AV block Benign essential hypertension Tinea cruris Psoriasis Pickwickian syndrome Cellulitis of leg, right Morbid obesity with BMI of 60.0-69.9, adult Surgical History History of appendectomy History of cholecystectomy Social History Smoking Status: Former smoker Tobacco Type: Cigarettes Cigarettes Per Day: pack per day; Second Hand Exposure: No; Do You Dip or Chew Tobacco: No; Hx Alcohol Use: No Hx Substance Use: No Preferred Language: Slovak Communication Ability: Effective Port Purser Required: No Beliefs That Will Affect Care: None Current Living Situation: Spouse Feels Safe at Home: Yes Assistive Devices: Hospital Bed and Oxygen - Continuous Allergies Allergies Allergy/AdvReac Type Severity Reaction Status Date / Time latex Allergy Severe Rash Unverified 04/22/25 17:47 zinc Allergy Rash Verified 04/22/25 17:47 Home Meds Home Medications Medication Instructions Recorded Confirmed acetaminophen 500 mg tablet 500 mg PO Q6H PRN Pain 04/22/25 04/22/25 amlodipine 5 mg tablet 5 mg PO QAM 04/22/25 04/22/25 aspirin 81 mg tablet,delayed 81 mg PO QPM 04/22/25 04/22/25 release tczexwb-rmhcifeiudhtq-fjdilgih 250 1 tab PO Q6H PRN Migraine Headache 04/22/25 04/22/25 mg-250 mg-65 mg tablet (Excedrin Migraine) furosemide 80 mg tablet 80 mg PO DAILY PRN Swelling 04/22/25 04/22/25 ibuprofen 200 mg capsule (Advil 200 mg PO Q6H PRN Migraine Headache 04/22/25 04/22/25 Migraine) multivitamin 1 tab PO DAILY 04/22/25 04/22/25 potassium chloride 10 mEq 20 meq PO DAILY PRN If taking Lasix 04/22/25 04/22/25 tablet,extended release(part/cryst) Previous Rx's Medication Instructions Recorded magnesium oxide 400 mg (241.3 mg 400 mg PO AMPM #60 tabs 04/21/24 magnesium) tablet metoprolol tartrate 25 mg tablet 25 mg PO AMPM #60 tabs 04/21/24 Results & Data (ED) Vital Signs Vital Signs - 24 hr 04/22/25 01:51 04/22/25 01:55 04/22/25 01:57 Temperature Temperature Source Pulse Rate 85 80 85 Pulse Rate from SpO2 Sensor 85 Pulse Rhythm Regular Pulse Strength Normal Respiratory Rate 17 17 Respiratory Effort / Characteristics Mechanically Ventilated Blood Pressure 93/56 L Blood Pressure Mean 68 Pulse Oximetry 86 L 83 L Oxygen Delivery Method Mechanical Vent Mechanical Vent Fraction of Inspired Oxygen Sepsis Recent Fever Within 48 Hours No Sepsis New/Unexplained Change in Mental Status N/A Sepsis Action Taken by Nursing No Action Required End-Tidal CO2 04/22/25 02:09 04/22/25 02:10 04/22/25 02:10 Temperature Temperature Source Pulse Rate 81 Pulse Rate from SpO2 Sensor 81 Pulse Rhythm Pulse Strength Respiratory Rate 22 Respiratory Effort / Characteristics Mechanically Ventilated Blood Pressure 80/62 L Blood Pressure Mean 68 Pulse Oximetry 100 Oxygen Delivery Method Mechanical Vent Mechanical Vent Mechanical Vent Fraction of Inspired Oxygen 60 Sepsis Recent Fever Within 48 Hours Sepsis New/Unexplained Change in Mental Status Sepsis Action Taken by Nursing End-Tidal CO2 77 04/22/25 02:41 04/22/25 03:20 04/22/25 03:24 Temperature 34.8 C L Temperature Source Perez Cath ( Temp Sensing) Pulse Rate 77 71 Pulse Rate from SpO2 Sensor Pulse Rhythm Pulse Strength Respiratory Rate 22 22 Respiratory Effort / Characteristics Blood Pressure 121/71 91/68 L Blood Pressure Mean 87 76 Pulse Oximetry 97 96 Oxygen Delivery Method Mechanical Vent Mechanical Vent Fraction of Inspired Oxygen Sepsis Recent Fever Within 48 Hours Sepsis New/Unexplained Change in Mental Status Sepsis Action Taken by Nursing End-Tidal CO2 62 58 04/22/25 03:32 04/22/25 03:33 04/22/25 04:00 Temperature Temperature Source Pulse Rate 67 70 Pulse Rate from SpO2 Sensor 67 71 Pulse Rhythm Pulse Strength Respiratory Rate 24 22 24 Respiratory Effort / Characteristics Blood Pressure 92/70 L 102/77 Blood Pressure Mean 77 85 Pulse Oximetry 96 96 Oxygen Delivery Method Mechanical Vent Mechanical Vent Fraction of Inspired Oxygen 50 Sepsis Recent Fever Within 48 Hours Sepsis New/Unexplained Change in Mental Status Sepsis Action Taken by Nursing End-Tidal CO2 24 57 57 04/22/25 04:24 04/22/25 04:42 04/22/25 04:42 Temperature Temperature Source Pulse Rate 70 59 L 58 L Pulse Rate from SpO2 Sensor 73 58 L Pulse Rhythm Pulse Strength Respiratory Rate 24 18 18 Respiratory Effort / Characteristics Blood Pressure 87/62 L 76/52 L 98/71 L Blood Pressure Mean 70 60 78 Pulse Oximetry 95 99 99 Oxygen Delivery Method Mechanical Vent Mechanical Vent Mechanical Vent Fraction of Inspired Oxygen Sepsis Recent Fever Within 48 Hours Sepsis New/Unexplained Change in Mental Status Sepsis Action Taken by Nursing End-Tidal CO2 58 60 63 04/22/25 05:06 Temperature Temperature Source Pulse Rate 57 L Pulse Rate from SpO2 Sensor Pulse Rhythm Pulse Strength Respiratory Rate 18 Respiratory Effort / Characteristics Blood Pressure 125/88 Blood Pressure Mean 95 Pulse Oximetry 99 Oxygen Delivery Method Mechanical Vent Fraction of Inspired Oxygen Sepsis Recent Fever Within 48 Hours Sepsis New/Unexplained Change in Mental Status Sepsis Action Taken by Nursing End-Tidal CO2 72 Laboratory Data 04/22/25 01:55 04/22/25 01:55 Lab Results 04/22/25 04/22/25 04/22/25 Range/Units 01:55 02:00 02:05 WBC 10.70 (4.8-10.8) K/ul RBC 4.80 (4.70-6.10) M/uL Hgb 14.5 (14.0-18.0) g/dl POC Hgb 17.0 (14.0-18.0) g/dl Hct 49.5 (42.0-52.0) % POC Hct 50 (42-52) % MCV 103.1 H (80.0-100.0) fL MCH 30.2 (25.0-34.0) pg MCHC 29.3 L (32.0-36.0) g/dL RDW Std Deviation 47.7 H (36.4-46.3) fL RDW Coeff of Nelson 12.9 (11.5-14.5) % Plt Count 195 (130-400) K/uL MPV 9.5 (9.4-12.4) fL Immature Gran % (Auto) 4.7 % Neut % (Auto) 80.4 % Lymph % (Auto) 9.3 % [place] % (Auto) 5.1 % Eos % (Auto) 0.5 % Baso % (Auto) 0.0 % Neut # (Auto) 8.60 H (1.40-6.50) K/uL Lymph # (Auto) 1.00 L (1.20-3.40) K/uL [place] # (Auto) 0.55 (0.11-0.59) K/uL Eos # (Auto) 0.05 (0.00-0.50) K/uL Baso # (Auto) 0.00 (0.00-0.20) K/uL Immature Gran # (Auto) 0.50 H (0.01-0.20) K/uL D-Dimer 1150 H* (0-500) ug/L FEU Specimen Type Sample Site POC pH (7.35-7.45) POC pCO2 (35-46) mmHg POC pO2 (80-95) mmHg POC HCO3 (19-24) elvira/L POC Base Excess (-9-1.8) elvira/L O2 Sat Pulse Oximetry ABG pH (Temp Correct) (7.35-7.45) ABG pCO2 (Temp Corrct (35-46) mmHg POC ABG pO2 at Pt Temp POC ABG O2 Sat (90-95) % Ibrahima Test O2 Delivery Device Vent Mode POC FiO2 % End Tidal CO2 POC Sodium 140 (135-144) mmol/L Sodium 144 (136-145) mmol/L POC Potassium 3.9 (3.3-5.0) mmol/L Potassium 3.9 (3.5-5.1) mmol/L POC Chloride 91 L (101-112) mmol/L Chloride 94 L (98-107) mmol/L Carbon Dioxide 44 H* (21-32) mmol/L POC Total CO2 39 H (24-31) mmol/L Anion Gap 6 (3-11) POC Anion Gap 15.0 L (16-25) mmol/L POC BUN 12 (7-18) mg/dl BUN 13 (6-23) mg/dl Creatinine 0.39 L (0.6-1.4) mg/dl POC Creatinine 0.7 (0.6-1.3) mg/dl Est Cr Clr Drug Dosing 411.5 ml/min eGFR 131.47 BUN/Creatinine Ratio 33.3 H (10-20) Glucose 220 H (70-99(Fasting)) mg/dl POC Glucose (other) 220 H (70-99) mg/dl Calcium 9.4 (8.6-10.3) mg/dl POC Ioniz Calcium Augustus 1.09 L (1.12-1.32) mmol/l Magnesium 2.1 (1.7-2.4) mg/dl Total Bilirubin 0.6 (0.2-1.0) mg/dl AST 11 L (13-39) U/L ALT 7 (7-52) U/L Alkaline Phosphatase 104 (34-104) U/L Total Creatine Kinase 15 L (30-223) U/L Troponin I High Sens 7.1 (0-20) pg/ml B-Natriuretic Peptide 37 (0-100) pg/ml Total Protein 7.1 (6.0-8.3) gm/dl Albumin 3.8 (3.4-5.0) gm/dl Globulin 3.3 (2.5-4.0) gm/dl Albumin/Globulin Ratio 1.2 (0.9-2) Vitamin B12 459 (180-914) pg/ml Folate 8.66 (>5.38) ng/ml Procalcitonin 0.14 (0-0.5) ng/ml Random Cortisol 31.10 mcg/dl Urine Color Urine Appearance (Clear) Urine pH (4.5-7.5) Ur Specific [place] (1.000-1.030) Urine Protein (Negative) Urine Glucose (UA) (Negative) Urine Ketones (Negative) Urine Blood (Negative) Urine Nitrite (Negative) Urine Bilirubin (Negative) Urine Urobilinogen (Negative) Ur Leukocyte Esterase (Negative) Urine WBC (Auto) (0-5) /hpf Urine RBC (Auto) (0-2) /hpf U Hyaline Cast (Auto) (0-2) /lpf U Epithel Cells (Auto) (0-2) /hpf Urine Bacteria (Auto) (None Seen) Calcium Oxalate Crystal (None Prsent) Granular Casts (None Prsent) /lpf Urine Mucus (None Prsent) Urine Comment Urine Opiates Screen (Neg) Ur Methadone, Qual (Neg) Urine Fentanyl Screen (Neg) Acetaminophen (10-30) ug/ml Urine Barbiturates (Neg) Ur Phencyclidine (PCP) (Neg) U Amphetamin/Meth Scrn (Neg) MDMA (Ecstasy) Screen (Neg) U Benzodiazepines Scrn (Neg) Ur Cocaine Metabolite (Neg) U Marijuana (THC) Screen (Neg) Adenovirus (PCR) (NotDetected) B. pertussis DNA (PCR) (NotDetected) B.parapertussis DNA PCR (NotDetected) C. pneumoniae DNA (PCR) (NotDetected) Coronavirus OC43 (PCR) (NotDetected) Coronavirus HKU1 (PCR) (NotDetected) Coronavirus 229E (PCR) (NotDetected) SARS-CoV-2 (PCR) (NotDetected) Coronavirus NL63 (PCR) (NotDetected) Human Metapneumovir PCR (NotDetected) Influenza Type A (PCR) (NotDetected) Influenza Type B (PCR) (NotDetected) M. pneumoniae (PCR) (NotDetected) Parainfluenza 1 (PCR) (NotDetected) Parainfluenza 2 (PCR) (NotDetected) Parainfluenza 3 (PCR) (NotDetected) Parainfluenza 4 (PCR) (NotDetected) RSV (PCR) (NotDetected) Entero/Rhino (PCR) (NotDetected) 04/22/25 04/22/25 04/22/25 Range/Units 02:15 02:20 02:22 WBC (4.8-10.8) K/ul RBC (4.70-6.10) M/uL Hgb (14.0-18.0) g/dl POC Hgb 16.0 (14.0-18.0) g/dl Hct (42.0-52.0) % POC Hct 47 (42-52) % MCV (80.0-100.0) fL MCH (25.0-34.0) pg MCHC (32.0-36.0) g/dL RDW Std Deviation (36.4-46.3) fL RDW Coeff of Nelson (11.5-14.5) % Plt Count (130-400) K/uL MPV (9.4-12.4) fL Immature Gran % (Auto) % Neut % (Auto) % Lymph % (Auto) % [place] % (Auto) % Eos % (Auto) % Baso % (Auto) % Neut # (Auto) (1.40-6.50) K/uL Lymph # (Auto) (1.20-3.40) K/uL [place] # (Auto) (0.11-0.59) K/uL Eos # (Auto) (0.00-0.50) K/uL Baso # (Auto) (0.00-0.20) K/uL Immature Gran # (Auto) (0.01-0.20) K/uL D-Dimer (0-500) ug/L FEU Specimen Type Arterial Sample Site R Radial POC pH 7.31 L (7.35-7.45) POC pCO2 80 H (35-46) mmHg POC pO2 136 H (80-95) mmHg POC HCO3 40 H (19-24) elvira/L POC Base Excess 14.0 H (-9-1.8) elvira/L O2 Sat Pulse Oximetry 100 ABG pH (Temp Correct) 7.308 L (7.35-7.45) ABG pCO2 (Temp Corrct 80 H (35-46) mmHg POC ABG pO2 at Pt Temp 136 POC ABG O2 Sat 99.0 H (90-95) % Ibrahima Test Pass O2 Delivery Device Ventilator Vent Mode AC POC FiO2 80 % End Tidal CO2 73 POC Sodium 140 (135-144) mmol/L Sodium (136-145) mmol/L POC Potassium 4.3 (3.3-5.0) mmol/L Potassium (3.5-5.1) mmol/L POC Chloride (101-112) mmol/L Chloride (98-107) mmol/L Carbon Dioxide (21-32) mmol/L POC Total CO2 42 H* (24-31) mmol/L Anion Gap (3-11) POC Anion Gap (16-25) mmol/L POC BUN (7-18) mg/dl BUN (6-23) mg/dl Creatinine (0.6-1.4) mg/dl POC Creatinine (0.6-1.3) mg/dl Est Cr Clr Drug Dosing ml/min eGFR BUN/Creatinine Ratio (10-20) Glucose (70-99(Fasting)) mg/dl POC Glucose (other) (70-99) mg/dl Calcium (8.6-10.3) mg/dl POC Ioniz Calcium Augustus (1.12-1.32) mmol/l Magnesium (1.7-2.4) mg/dl Total Bilirubin (0.2-1.0) mg/dl AST (13-39) U/L ALT (7-52) U/L Alkaline Phosphatase (34-104) U/L Total Creatine Kinase (30-223) U/L Troponin I High Sens (0-20) pg/ml B-Natriuretic Peptide (0-100) pg/ml Total Protein (6.0-8.3) gm/dl Albumin (3.4-5.0) gm/dl Globulin (2.5-4.0) gm/dl Albumin/Globulin Ratio (0.9-2) Vitamin B12 (180-914) pg/ml Folate (>5.38) ng/ml Procalcitonin (0-0.5) ng/ml Random Cortisol mcg/dl Urine Color Dark Yellow Urine Appearance Cloudy A (Clear) Urine pH 5.0 (4.5-7.5) Ur Specific [place] 1.035 H (1.000-1.030) Urine Protein 4+ H (Negative) Urine Glucose (UA) Trace H (Negative) Urine Ketones Negative (Negative) Urine Blood 3+ H (Negative) Urine Nitrite Negative (Negative) Urine Bilirubin 1+ H (Negative) Urine Urobilinogen Negative (Negative) Ur Leukocyte Esterase Trace H (Negative) Urine WBC (Auto) 21-50 H (0-5) /hpf Urine RBC (Auto) >20 H (0-2) /hpf U Hyaline Cast (Auto) >20 H (0-2) /lpf U Epithel Cells (Auto) 3-5 H (0-2) /hpf Urine Bacteria (Auto) 3+ H (None Seen) Calcium Oxalate Crystal Present A (None Prsent) Granular Casts Present A (None Prsent) /lpf Urine Mucus Present A (None Prsent) Urine Comment Urine Opiates Screen Neg (Neg) Ur Methadone, Qual Neg (Neg) Urine Fentanyl Screen Neg (Neg) Acetaminophen (10-30) ug/ml Urine Barbiturates Neg (Neg) Ur Phencyclidine (PCP) Neg (Neg) U Amphetamin/Meth Scrn Neg (Neg) MDMA (Ecstasy) Screen Neg (Neg) U Benzodiazepines Scrn Neg (Neg) Ur Cocaine Metabolite Neg (Neg) U Marijuana (THC) Screen Neg (Neg) Adenovirus (PCR) Not Detected (NotDetected) B. pertussis DNA (PCR) Not Detected (NotDetected) B.parapertussis DNA PCR Not Detected (NotDetected) C. pneumoniae DNA (PCR) Not Detected (NotDetected) Coronavirus OC43 (PCR) Not Detected (NotDetected) Coronavirus HKU1 (PCR) Not Detected (NotDetected) Coronavirus 229E (PCR) Not Detected (NotDetected) SARS-CoV-2 (PCR) Not Detected (NotDetected) Coronavirus NL63 (PCR) Not Detected (NotDetected) Human Metapneumovir PCR Not Detected (NotDetected) Influenza Type A (PCR) Not Detected (NotDetected) Influenza Type B (PCR) Not Detected (NotDetected) M. pneumoniae (PCR) Not Detected (NotDetected) Parainfluenza 1 (PCR) Not Detected (NotDetected) Parainfluenza 2 (PCR) Not Detected (NotDetected) Parainfluenza 3 (PCR) Not Detected (NotDetected) Parainfluenza 4 (PCR) Not Detected (NotDetected) RSV (PCR) Not Detected (NotDetected) Entero/Rhino (PCR) Not Detected (NotDetected) 04/22/25 04/22/25 Range/Units 03:22 04:50 WBC (4.8-10.8) K/ul RBC (4.70-6.10) M/uL Hgb (14.0-18.0) g/dl POC Hgb 15.0 (14.0-18.0) g/dl Hct (42.0-52.0) % POC Hct 44 (42-52) % MCV (80.0-100.0) fL MCH (25.0-34.0) pg MCHC (32.0-36.0) g/dL RDW Std Deviation (36.4-46.3) fL RDW Coeff of Nelson (11.5-14.5) % Plt Count (130-400) K/uL MPV (9.4-12.4) fL Immature Gran % (Auto) % Neut % (Auto) % Lymph % (Auto) % [place] % (Auto) % Eos % (Auto) % Baso % (Auto) % Neut # (Auto) (1.40-6.50) K/uL Lymph # (Auto) (1.20-3.40) K/uL [place] # (Auto) (0.11-0.59) K/uL Eos # (Auto) (0.00-0.50) K/uL Baso # (Auto) (0.00-0.20) K/uL Immature Gran # (Auto) (0.01-0.20) K/uL D-Dimer (0-500) ug/L FEU Specimen Type Arterial Sample Site R Radial POC pH 7.32 L (7.35-7.45) POC pCO2 81 H (35-46) mmHg POC pO2 56 L (80-95) mmHg POC HCO3 42 H (19-24) elvira/L POC Base Excess 16.0 H (-9-1.8) elvira/L O2 Sat Pulse Oximetry 95 ABG pH (Temp Correct) 7.349 L (7.35-7.45) ABG pCO2 (Temp Corrct 74 H (35-46) mmHg POC ABG pO2 at Pt Temp 48 POC ABG O2 Sat 84.0 L (90-95) % Ibrahima Test Pass O2 Delivery Device Ventilator Vent Mode AC POC FiO2 50 % End Tidal CO2 60 POC Sodium 139 (135-144) mmol/L Sodium (136-145) mmol/L POC Potassium 4.0 (3.3-5.0) mmol/L Potassium (3.5-5.1) mmol/L POC Chloride (101-112) mmol/L Chloride (98-107) mmol/L Carbon Dioxide (21-32) mmol/L POC Total CO2 44 H* (24-31) mmol/L Anion Gap (3-11) POC Anion Gap (16-25) mmol/L POC BUN (7-18) mg/dl BUN (6-23) mg/dl Creatinine (0.6-1.4) mg/dl POC Creatinine (0.6-1.3) mg/dl Est Cr Clr Drug Dosing ml/min eGFR BUN/Creatinine Ratio (10-20) Glucose (70-99(Fasting)) mg/dl POC Glucose (other) (70-99) mg/dl Calcium (8.6-10.3) mg/dl POC Ioniz Calcium Augustus (1.12-1.32) mmol/l Magnesium (1.7-2.4) mg/dl Total Bilirubin (0.2-1.0) mg/dl AST (13-39) U/L ALT (7-52) U/L Alkaline Phosphatase (34-104) U/L Total Creatine Kinase (30-223) U/L Troponin I High Sens (0-20) pg/ml B-Natriuretic Peptide (0-100) pg/ml Total Protein (6.0-8.3) gm/dl Albumin (3.4-5.0) gm/dl Globulin (2.5-4.0) gm/dl Albumin/Globulin Ratio (0.9-2) Vitamin B12 (180-914) pg/ml Folate (>5.38) ng/ml Procalcitonin (0-0.5) ng/ml Random Cortisol mcg/dl Urine Color Urine Appearance (Clear) Urine pH (4.5-7.5) Ur Specific [place] (1.000-1.030) Urine Protein (Negative) Urine Glucose (UA) (Negative) Urine Ketones (Negative) Urine Blood (Negative) Urine Nitrite (Negative) Urine Bilirubin (Negative) Urine Urobilinogen (Negative) Ur Leukocyte Esterase (Negative) Urine WBC (Auto) (0-5) /hpf Urine RBC (Auto) (0-2) /hpf U Hyaline Cast (Auto) (0-2) /lpf U Epithel Cells (Auto) (0-2) /hpf Urine Bacteria (Auto) (None Seen) Calcium Oxalate Crystal (None Prsent) Granular Casts (None Prsent) /lpf Urine Mucus (None Prsent) Urine Comment Urine Opiates Screen (Neg) Ur Methadone, Qual (Neg) Urine Fentanyl Screen (Neg) Acetaminophen 3 L (10-30) ug/ml Urine Barbiturates (Neg) Ur Phencyclidine (PCP) (Neg) U Amphetamin/Meth Scrn (Neg) MDMA (Ecstasy) Screen (Neg) U Benzodiazepines Scrn (Neg) Ur Cocaine Metabolite (Neg) U Marijuana (THC) Screen (Neg) Adenovirus (PCR) (NotDetected) B. pertussis DNA (PCR) (NotDetected) B.parapertussis DNA PCR (NotDetected) C. pneumoniae DNA (PCR) (NotDetected) Coronavirus OC43 (PCR) (NotDetected) Coronavirus HKU1 (PCR) (NotDetected) Coronavirus 229E (PCR) (NotDetected) SARS-CoV-2 (PCR) (NotDetected) Coronavirus NL63 (PCR) (NotDetected) Human Metapneumovir PCR (NotDetected) Influenza Type A (PCR) (NotDetected) Influenza Type B (PCR) (NotDetected) M. pneumoniae (PCR) (NotDetected) Parainfluenza 1 (PCR) (NotDetected) Parainfluenza 2 (PCR) (NotDetected) Parainfluenza 3 (PCR) (NotDetected) Parainfluenza 4 (PCR) (NotDetected) RSV (PCR) (NotDetected) Entero/Rhino (PCR) (NotDetected) Administered Medications Albuterol (Albut/Ipratrop 3mg/0.5mg Neb 3 Ml Vial) 3 ml NEB Q6R KIM; Protocol Stop: 05/22/25 12:59 Last Admin: 04/22/25 13:40 Dose: 3 ml Documented By: [id number] Heparin Sodium (Porcine) (Heparin Sod 5,000 Unit/0.5 Ml Vial) 7,500 units SQ Q8 KIM Stop: 05/22/25 13:59 Last Admin: 04/22/25 13:49 Dose: 7,500 units Documented By: FIONA Dexmedetomidine/Sodium Chloride (Precedex) 200 mcg in 50 mls @ 35.315 mls/hr IV .Q1H25M KIM; Protocol Stop: 04/26/25 03:44 Last Admin: 04/22/25 18:03 Dose: 0.7 mcg/kg/hr, 35.3 mls/hr Documented By: WRS Co-signed By: [facility] Titration: 04/22/25 18:03 Dose: Infused Documented By: WRS Co-signed By: [facility] Admin: 04/22/25 16:38 Dose: 0.7 mcg/kg/hr, 35.3 mls/hr Documented By: WRS Co-signed By: [facility] Titration: 04/22/25 16:37 Dose: Infused Documented By: WRS Co-signed By: [facility] Admin: 04/22/25 15:12 Dose: 0.7 mcg/kg/hr, 35.3 mls/hr Documented By: WRS Co-signed By: MTP Titration: 04/22/25 15:12 Dose: Infused Documented By: WRS Co-signed By: MTP Admin: 04/22/25 13:52 Dose: 0.7 mcg/kg/hr, 35.3 mls/hr Documented By: WRS Co-signed By: MTP Titration: 04/22/25 13:52 Dose: Infused Documented By: WRS Co-signed By: MTP Admin: 04/22/25 12:40 Dose: 0.7 mcg/kg/hr, 35.3 mls/hr Documented By: WRS Co-signed By: [facility] Titration: 04/22/25 12:40 Dose: Infused Documented By: WRS Co-signed By: [facility] Admin: 04/22/25 11:24 Dose: 0.7 mcg/kg/hr, 35.3 mls/hr Documented By: WRS Co-signed By: [facility] Titration: 04/22/25 11:24 Dose: Infused Documented By: WRS Co-signed By: [facility] Admin: 04/22/25 10:00 Dose: 0.7 mcg/kg/hr, 35.3 mls/hr Documented By: WRS Co-signed By: [facility] Titration: 04/22/25 10:00 Dose: Infused Documented By: WRS Co-signed By: [facility] Admin: 04/22/25 08:41 Dose: 0.7 mcg/kg/hr, 35.3 mls/hr Documented By: WRS Co-signed By: [facility] Titration: 04/22/25 08:41 Dose: Infused Documented By: WRS Co-signed By: MTP Admin: 04/22/25 07:20 Dose: 0.7 mcg/kg/hr, 35.3 mls/hr Documented By: WRS Co-signed By: ESTHER Titration: 04/22/25 07:20 Dose: Infused Documented By: WRS Co-signed By: ESTHER Titration: 04/22/25 06:57 Dose: 0.7 mcg/kg/hr, 35.3 mls/hr Documented By: WRPorfirio Co-signed By: KRISTIAN Admin: 04/22/25 06:13 Dose: 0.7 mcg/kg/hr, 35.3 mls/hr Documented By: DAYA Co-signed By: MAKENNA Titration: 04/22/25 06:05 Dose: Infused Documented By: Titration: 04/22/25 05:20 Dose: 0.7 mcg/kg/hr, 35.3 mls/hr Documented By: Titration: 04/22/25 04:56 Dose: 0.5 mcg/kg/hr, 25.2 mls/hr Documented By: Admin: 04/22/25 04:17 Dose: 0.4 mcg/kg/hr, 20.2 mls/hr Documented By: MAKENNA Co-signed By: EJW Norepinephrine Bitartrate (Levophed/D5w) 4 mg in 250 mls @ 0 mls/hr IV .Q0M KIM; Protocol Stop: 05/22/25 04:14 Last Titration: 04/22/25 12:15 Dose: 0 mcg/kg/min, 0 mls/hr Documented By: FIONA Co-signed By: MTP Titration: 04/22/25 08:23 Dose: 0.01 mcg/kg/min, 7.6 mls/hr Documented By: FIONA Co-signed By: ESTHER Titration: 04/22/25 07:47 Dose: 0 mcg/kg/min, 0 mls/hr Documented By: WRS Co-signed By: MTP Titration: 04/22/25 07:30 Dose: 0.01 mcg/kg/min, 7.6 mls/hr Documented By: WRS Co-signed By: MTP Titration: 04/22/25 06:57 Dose: 0.03 mcg/kg/min, 22.7 mls/hr Documented By: FIONA Co-signed By: KRISTIAN Titration: 04/22/25 06:43 Dose: 0.03 mcg/kg/min, 22.7 mls/hr Documented By: KRISTIAN Co-signed By: rmt Admin: 04/22/25 04:37 Dose: 0.05 mcg/kg/min, 37.8 mls/hr Documented By: MAKENNA Co-signed By: Ceftriaxone Sodium (Rocephin) 2,000 mg in 50 mls @ 100 mls/hr IV Q24H [facility] Stop: 04/27/25 06:44 Last Infusion: 04/22/25 09:01 Dose: Infused Documented By: Admin: 04/22/25 08:25 Dose: 100 mls/hr Documented By: FIONA Insulin Aspart (Insulin Aspart Per Unit Charge) 0 units SC Q4 KIM Stop: 05/22/25 07:29 Last Admin: 04/22/25 16:19 Dose: Not Given Documented By: Admin: 04/22/25 11:53 Dose: Not Given Documented By: Admin: 04/22/25 07:33 Dose: Not Given Documented By: FIONA Discontinued Medications Furosemide (Furosemide 40 Mg/4 Ml Vial) 40 mg IV ONE ONE Stop: 04/22/25 06:36 Last Admin: 04/22/25 07:14 Dose: 40 mg Documented By: FIONA Furosemide (Furosemide 40 Mg/4 Ml Vial) 60 mg IV TODAY@1600 ONE Stop: 04/22/25 16:01 Last Admin: 04/22/25 16:23 Dose: 60 mg Documented By: FIONA Sodium Chloride (Nss) 500 mls @ 999 mls/hr IV .Q31M ONE Stop: 04/22/25 03:00 Last Infusion: 04/22/25 03:20 Dose: Infused Documented By: Admin: 04/22/25 02:38 Dose: 999 mls/hr Documented By: MAKENNA Calcium Gluconate () 1,000 mg in 60 mls @ 240 mls/hr IV Q15M KIM Stop: 04/22/25 07:06 Last Infusion: 04/22/25 07:56 Dose: Infused Documented By: Admin: 04/22/25 07:32 Dose: 240 mls/hr Documented By: Infusion: 04/22/25 07:29 Dose: Infused Documented By: Admin: 04/22/25 07:14 Dose: 240 mls/hr Documented By: FIONA Potassium Chloride (K Imer / Wtr) 10 meq in 100 mls @ 100 mls/hr IV Q1H KIM Stop: 04/22/25 12:59 Last Infusion: 04/22/25 13:31 Dose: Infused Documented By: Admin: 04/22/25 12:10 Dose: 100 mls/hr Documented By: Infusion: 04/22/25 12:09 Dose: Infused Documented By: Admin: 04/22/25 11:09 Dose: 100 mls/hr Documented By: FIONA Pantoprazole Sodium (Protonix) 40 mg in 10 mls @ 5 mls/min IV DAILY KIM Stop: 05/22/25 10:59 Last Admin: 04/22/25 11:21 Dose: Not Given Documented By: FIONA Potassium Chloride (K Imer / Wtr) 10 meq in 100 mls @ 100 mls/hr IV Q1H KIM Stop: 04/22/25 15:14 Last Admin: 04/22/25 11:21 Dose: Not Given Documented By: FIONA Midazolam HCl (Midazolam Hcl 1 Mg/Ml 2ml Vial) 2 mg IV NOW STA Stop: 04/22/25 04:04 Last Admin: 04/22/25 04:17 Dose: 2 mg Documented By: MAKENNA Midazolam HCl (Midazolam Hcl 1 Mg/Ml 2ml Vial) Confirm Administered Dose 2 mg .ROUTE .STK-MED ONE Stop: 04/22/25 04:07 Last Admin: 04/22/25 04:16 Dose: Not Given Documented By: MAKENNA Norepinephrine Bitartrate (Norepinephrine/D5w 4 Mg/250 Ml) Confirm Administered Dose 4 mg IV .STK-MED ONE Stop: 04/22/25 04:08 Last Admin: 04/22/25 04:17 Dose: Not Given Documented By: MAKENNA Pantoprazole Sodium (Pantoprazole 40 Mg Tab) 40 mg PO QAM KIM Stop: 05/22/25 08:59 Last Admin: 04/22/25 11:06 Dose: Not Given Documented By: WRS Imaging Data Radiologist's Impression: Venous Doppler Study 04/22/25 03:37 EXAM: US venous doppler LE BI CLINICAL HISTORY: Rule out DVT. TECHNIQUE: Ultrasound examination of bilateral lower extremity veins was performed in real time and duplex. One or more of the following were performed- spectral analysis, resistive index, waveform analysis, and pulsed Doppler. COMPARISON: 03/05/2024, Venous doppler. FINDINGS: Normal phasic, non-pulsatile, and spontaneous flow is noted in the bilateral visualized greater saphenous, common femoral, superficial femoral, and popliteal veins. Normal color flow noted in profunda femoris, anterior tibial, posterior tibial, and peroneal veins; however, compression and augmentation images of these veins are not available. The other visualized veins of both lower extremities demonstrate normal compressibility. No sonographic evidence of acute deep vein thrombosis (DVT) is detected in the visualized veins of both lower extremities. Compression and Augmentation: All visualized evaluated veins compress fully with the applied transducer pressure. Augmentation of venous flow is noted with distal compression. Additional Findings: No evidence of intraluminal thrombus. Possible minimal soft tissue edema in both lower limbs. IMPRESSION: 1. No sonographic evidence of acute DVT was detected in bilateral common femoral, superficial femoral, popliteal, anterior tibial, posterior tibial, and peroneal veins at the time of examination. 2. Possible minimal soft tissue edema in both lower limbs; however, it was more conspicuous in the prior examination. Disclaimer: DVT could be missed early in the disease when the clot burden is minimal. For patients with moderate and high pretest probability of DVT and negative ultrasound, the [employer] clinical guidelines recommend testing with a D-dimer assay or repeat ultrasound in 5-7 days. If symptoms worsen, the Society of [employer] in Ultrasound recommends repeating the ultrasound even earlier. Electronically signed by Ridge Avalos 04-22-2025 06:15 AM Shoulder X-Ray 04/22/25 04:09 EXAM: XR shoulder LT min 2V routine CLINICAL HISTORY: Dislocated shoulder TECHNIQUE: X-ray images of the left shoulder were obtained in anteroposterior (AP) and Y-view projections. COMPARISON: No prior studies available for comparison. FINDINGS: Bone Structure: Abnormal anteroinferior subluxation of the humeral head is noted. Cortical irregularity is noted along humeral shaft - correlate with old history of trauma. The remaining bone structure is normal and aligned. No evidence of fracture is seen. No osseous lesions or other abnormalities are identified. Joint Spaces: There is widening of the glenohumeral and subacromial spaces. The acromioclavicular joint space is normal. Soft Tissues: The soft tissues appear normal and unremarkable. No soft tissue swelling, calcifications, or foreign bodies are noted. Additional Findings: No signs of osteoarthritis, bone spurs, or lytic or sclerotic lesions are present. Limited image of left lung shows perihilar veiling/opacities - repeat X-ray for chest if clinically indicated. IMPRESSION: Inferior subluxation of the humeral head, with no evidence of a gross acute fracture. Disclaimer: A subtle bone abnormality or fracture may not be readily apparent on X-rays, thus clinical correlation and further imaging including follow-up CT, MRI, or follow-up X-rays are advised as needed. Electronically signed by Ridge Avalos 04-22-2025 08:25 AM Discharge Plan Visit Data Chief Complaint: Respiratory Arrest Stated Complaint: RESP. ARREST ED Provider: Isabella Barone Discharge Problem: Acute hypercapnic respiratory failure Patient Disposition: Admitted As Inpatient Condition: Critical Discharge Instructions Interventions: ED Discharge Assessment Last Done: 04/22/25 06:10
--- NOTE | 2025-04-22 05:19 | History & Physical Report ---
Date of Service April 22, 2025 Assessment & Plan (1) Acute on chronic respiratory failure with hypoxia and hypercapnia: (2) CHF (congestive heart failure): (3) HTN (hypertension), benign: (4) EMELY (obstructive sleep apnea): Plan 54yo male with history of morbid obesity, EMELY/OHS, HTN presenting with acute on chornic respiratory failure with hypoxia and hypercarbia Now improving #Unresponsiveness - likely secondary to hypercarbia, hypoxia, noncompliance with AVAPS. Patient intubated in the field. Mental state has since improved -Admit to MICU -Likely extubation in AM -Precedex for sedation #HF - patient hypotensive in the ER, initiated on Levophed for maintenance of MAP > 65 -Continue Levophed -Hold anti-hypertensives -Check 2D echo -Check bilteral LE doppler -Check random cortisol and Procalcitonin -Calcium x 2gm #Elevated blood sugar -Check HgbA1C -ISS #Possible UTI per UA -Ceftriaxone -Check urine culture History of Present Illness Chief Complaint: respiratory failure Primary Care Provider: NO PCP Landon Godinez is a 54yo male with history of HTN, HFpEF, PH, EMELY/OHS with non-compliance with AVAPS presenting with unresponsiveness. Patient found to be hypoxic in the 50s. He was intubated in the field. Upon arrival patient afebrile, hypotensive otherwise HD stable ER Course: NSS x 500mL Midazolam Levophed Precedex Allergies Allergy/AdvReac Type Severity Reaction Status Date / Time zinc Allergy Rash Verified 04/14/24 21:53 Home Medications Medication Instructions Recorded Confirmed Type nystatin 100,000 unit/gram topical 1 applic EXT DAILY PRN Rash under 03/14/24 03/27/24 Rx powder (Nystop) skin folds #15 grams bacitracin zinc 500 unit-polymyxin 1 applic topical Q8H 03/27/24 03/27/24 History B 10,000 unit/gram topical ointment (Polysporin) etodolac 200 mg capsule 200 mg PO Q12H PRN pain #14 caps 03/27/24 03/27/24 Rx acetaminophen 325 mg tablet 650 mg (2 x 325 mg) PO Q6H #60 tabs 04/20/24 Rx ammonium lactate 5 % lotion 1 applic EXT DAILY PRN dry skin 04/20/24 Rx (Lac-Hydrin Five) #226 grams amoxicillin 875 mg-potassium 1 tab PO BIDM #7 tabs 04/20/24 Rx clavulanate 125 mg tablet hydrocortisone 2.5 % topical cream 1 applic topical BID PRN psoriasis 04/20/24 Rx #14 grams neomycin-bacitracn Zn-polymyx 3.5 1 applic EXT BID PRN skin 04/20/24 Rx mg-400 unit-5,000 unit/gram top irritation #14 grams oint (Triple Antibiotic) tramadol 50 mg tablet 50 mg PO Q6H PRN pain #30 tabs 04/20/24 Rx celecoxib 100 mg capsule 100 mg PO BID PRN Pain #60 caps 04/21/24 Rx furosemide 80 mg tablet 80 mg PO .EVERY AFTERNOON #30 tabs 04/21/24 Rx ipratropium 0.5 mg-albuterol 3 mg 3 ml NEB QIDR #90 mL 04/21/24 Rx (2.5 mg base)/3 mL nebulization soln ipratropium 20 mcg-albuterol 100 1 puff inhalation Q4 #4 grams 04/21/24 Rx mcg/actuation mist for inhalation (Combivent Respimat) loperamide 2 mg capsule (Imodium 2 mg PO Q6H PRN loose stool #30 04/21/24 Rx A-D) caps magnesium oxide 400 mg (241.3 mg 400 mg PO AMPM #60 tabs 04/21/24 Rx magnesium) tablet melatonin 3 mg tablet 6 mg (2 x 3 mg) PO HS PRN sleep 04/21/24 Rx #60 tabs metformin 500 mg tablet,extended 1,000 mg (2 x 500 mg) PO BID #60 04/21/24 Rx release 24 hr tabs metoprolol tartrate 25 mg tablet 25 mg PO AMPM #60 tabs 04/21/24 Rx pantoprazole 40 mg tablet,delayed 40 mg PO DAILYBB #30 tabs 04/21/24 Rx release potassium chloride 10 mEq 10 meq PO AMPM #60 tabs 04/21/24 Rx tablet,extended release(part/cryst) Past Med/Surg History Problem List Failure to thrive in adult Bilateral pulmonary infiltrates Restrictive lung disease Obesity hypoventilation syndrome Acute on chronic respiratory failure with hypoxia and hypercapnia Acute hypercapnic respiratory failure (Acute) Back pain CHF (congestive heart failure) Psoriasis diffusa Physical deconditioning Laceration of foot (Acute) Fall (Acute) HTN (hypertension), benign Restrictive lung disease secondary to obesity Degenerative arthritis Hypokalemia Tinea corporis Morbid obesity (Acute) Obesity Sinus pause EMELY (obstructive sleep apnea) Leanne's gangrene (Acute) Hypoxia (Acute) SOB (shortness of breath) Medical History Respiratory failure requiring intubation Prediabetes Candidiasis of mouth and esophagus AV block Benign essential hypertension Tinea cruris Psoriasis Pickwickian syndrome Cellulitis of leg, right Morbid obesity with BMI of 60.0-69.9, adult Surgical History History of appendectomy History of cholecystectomy Social History Smoking Status: Unknown if ever smoked Tobacco Type: Cigarettes Cigarettes Per Day: pack per day; Second Hand Exposure: No; Do You Dip or Chew Tobacco: No; Hx Alcohol Use: No (quit 5 years ago per pt) Hx Substance Use: No Preferred Language: Andorran Communication Ability: Effective Online Education Manager Required: No Beliefs That Will Affect Care: None Current Living Situation: Spouse Feels Safe at Home: Yes Assistive Devices: Cane Review of Systems Review of Systems: Unobtainable due to endotracheal tube Physical Exam Physical Exam: General: intubated, not sedated, moving all extremities Skin: scattered lesions on skin, no evidence of infection HEENT: NC/AT, PERRL, anicteric sclera, conjunctiva without injection, external ear normal to inspection and nontender, nares patent, moist mucus membranes, dentition intact, no oropharyngeal lesions, neck supple, trachea midline, no LAD, no thyromegaly, no JVD Heart: +S1/S2, regular, no m/r/g Lungs: equal air entry bilaterally, no rales/rhonchi/wheezes Abd: +BS, soft, NT/ND, no masses/organomegaly/ascites Perez in place with dark colored urine int he bag Ext: warm, 2+ pulses in UE/LE bilaterally, no clubbing/cyanosis or edema Neuro: intubated, sedated, grossly nonfocal Results & Data Results & Data Vital Signs (Past 12 Hours) Vital Signs Temp Pulse Resp BP Pulse Ox O2 Del Method FiO2 04/22/25 04:42 58 L 18 98/71 L 99 Mechanical Vent 04/22/25 04:42 59 L 18 76/52 L 99 Mechanical Vent 04/22/25 04:24 70 24 87/62 L 95 Mechanical Vent 04/22/25 04:00 70 24 102/77 96 Mechanical Vent 04/22/25 03:33 67 22 92/70 L 96 Mechanical Vent 04/22/25 03:32 24 50 04/22/25 03:24 71 22 91/68 L 96 Mechanical Vent 04/22/25 03:20 34.8 C L 04/22/25 02:41 77 22 121/71 97 Mechanical Vent 04/22/25 02:10 Mechanical Vent 04/22/25 02:10 Mechanical Vent 04/22/25 02:09 81 22 80/62 L 100 Mechanical Vent 60 04/22/25 01:57 85 04/22/25 01:55 80 17 83 L Mechanical Vent 04/22/25 01:51 85 17 93/56 L 86 L Mechanical Vent Laboratory Results Laboratory Results WBC 10.70 K/ul (4.8-10.8) 04/22/25 01:55 RBC 4.80 M/uL (4.70-6.10) 04/22/25 01:55 Hgb 14.5 g/dl (14.0-18.0) 04/22/25 01:55 POC Hgb 15.0 g/dl (14.0-18.0) 04/22/25 03:22 Hct 49.5 % (42.0-52.0) 04/22/25 01:55 POC Hct 44 % (42-52) 04/22/25 03:22 MCV 103.1 fL (80.0-100.0) H 04/22/25 01:55 MCH 30.2 pg (25.0-34.0) 04/22/25 01:55 MCHC 29.3 g/dL (32.0-36.0) L 04/22/25 01:55 RDW Std Deviation 47.7 fL (36.4-46.3) H 04/22/25 01:55 RDW Coeff of Nelson 12.9 % (11.5-14.5) 04/22/25 01:55 Plt Count 195 K/uL (130-400) 04/22/25 01:55 MPV 9.5 fL (9.4-12.4) 04/22/25 01:55 Immature Gran % (Auto) 4.7 % 04/22/25 01:55 Neut % (Auto) 80.4 % 04/22/25 01:55 Lymph % (Auto) 9.3 % 04/22/25 01:55 [place] % (Auto) 5.1 % 04/22/25 01:55 Eos % (Auto) 0.5 % 04/22/25 01:55 Baso % (Auto) 0.0 % 04/22/25 01:55 Neut # (Auto) 8.60 K/uL (1.40-6.50) H 04/22/25 01:55 Lymph # (Auto) 1.00 K/uL (1.20-3.40) L 04/22/25 01:55 [place] # (Auto) 0.55 K/uL (0.11-0.59) 04/22/25 01:55 Eos # (Auto) 0.05 K/uL (0.00-0.50) 04/22/25 01:55 Baso # (Auto) 0.00 K/uL (0.00-0.20) 04/22/25 01:55 Immature Gran # (Auto) 0.50 K/uL (0.01-0.20) H 04/22/25 01:55 D-Dimer 1150 ug/L FEU (0-500) H* 04/22/25 02:05 Specimen Type Arterial 04/22/25 03:22 Sample Site R Radial 04/22/25 03:22 POC pH 7.32 (7.35-7.45) L 04/22/25 03:22 POC pCO2 81 mmHg (35-46) H 04/22/25 03:22 POC pO2 56 mmHg (80-95) L 04/22/25 03:22 POC HCO3 42 elvira/L (19-24) H 04/22/25 03:22 POC Total CO2 44 mmol/L (24-31) H* 04/22/25 03:22 POC Base Excess 16.0 elvira/L (-9-1.8) H 04/22/25 03:22 O2 Sat Pulse Oximetry 95 04/22/25 03:22 ABG pH (Temp Correct) 7.349 (7.35-7.45) L 04/22/25 03:22 ABG pCO2 (Temp Corrct 74 mmHg (35-46) H 04/22/25 03:22 POC ABG pO2 at Pt Temp 48 04/22/25 03:22 POC ABG O2 Sat 84.0 % (90-95) L 04/22/25 03:22 Ibrahima Test Pass 04/22/25 03:22 O2 Delivery Device Ventilator 04/22/25 03:22 Vent Mode AC 04/22/25 03:22 POC FiO2 50 % 04/22/25 03:22 End Tidal CO2 60 04/22/25 03:22 POC Sodium 139 mmol/L (135-144) 04/22/25 03:22 Sodium 144 mmol/L (136-145) 04/22/25 01:55 POC Potassium 4.0 mmol/L (3.3-5.0) 04/22/25 03:22 Potassium 3.9 mmol/L (3.5-5.1) 04/22/25 01:55 POC Chloride 91 mmol/L (101-112) L 04/22/25 02:00 Chloride 94 mmol/L (98-107) L 04/22/25 01:55 Carbon Dioxide 44 mmol/L (21-32) H* 04/22/25 01:55 POC Total CO2 39 mmol/L (24-31) H 04/22/25 02:00 Anion Gap 6 (3-11) 04/22/25 01:55 POC Anion Gap 15.0 mmol/L (16-25) L 04/22/25 02:00 POC BUN 12 mg/dl (7-18) 04/22/25 02:00 BUN 13 mg/dl (6-23) 04/22/25 01:55 Creatinine 0.39 mg/dl (0.6-1.4) L 04/22/25 01:55 POC Creatinine 0.7 mg/dl (0.6-1.3) 04/22/25 02:00 Est Cr Clr Drug Dosing 411.5 ml/min 04/22/25 01:55 eGFR 131.47 04/22/25 01:55 BUN/Creatinine Ratio 33.3 (10-20) H 04/22/25 01:55 Glucose 220 mg/dl (70-99(Fasting)) H 04/22/25 01:55 POC Glucose (other) 220 mg/dl (70-99) H 04/22/25 02:00 Calcium 9.4 mg/dl (8.6-10.3) 04/22/25 01:55 POC Ioniz Calcium [place] 1.09 mmol/l (1.12-1.32) L 04/22/25 02:00 Magnesium 2.1 mg/dl (1.7-2.4) 04/22/25 01:55 Total Bilirubin 0.6 mg/dl (0.2-1.0) 04/22/25 01:55 AST 11 U/L (13-39) L 04/22/25 01:55 ALT 7 U/L (7-52) 04/22/25 01:55 Alkaline Phosphatase 104 U/L (34-104) 04/22/25 01:55 Total Creatine Kinase 15 U/L (30-223) L 04/22/25 01:55 Troponin I High Sens 7.1 pg/ml (0-20) 04/22/25 01:55 B-Natriuretic Peptide 37 pg/ml (0-100) 04/22/25 01:55 Total Protein 7.1 gm/dl (6.0-8.3) 04/22/25 01:55 Albumin 3.8 gm/dl (3.4-5.0) 04/22/25 01:55 Globulin 3.3 gm/dl (2.5-4.0) 04/22/25 01:55 Albumin/Globulin Ratio 1.2 (0.9-2) 04/22/25 01:55 Urine Color Dark Yellow 04/22/25 02:15 Urine Appearance Cloudy (Clear) A 04/22/25 02:15 Urine pH 5.0 (4.5-7.5) 04/22/25 02:15 Ur Specific [place] 1.035 (1.000-1.030) H 04/22/25 02:15 Urine Protein 4+ (Negative) H 04/22/25 02:15 Urine Glucose (UA) Trace (Negative) H 04/22/25 02:15 Urine Ketones Negative (Negative) 04/22/25 02:15 Urine Blood 3+ (Negative) H 04/22/25 02:15 Urine Nitrite Negative (Negative) 04/22/25 02:15 Urine Bilirubin 1+ (Negative) H 04/22/25 02:15 Urine Urobilinogen Negative (Negative) 04/22/25 02:15 Ur Leukocyte Esterase Trace (Negative) H 04/22/25 02:15 Urine WBC (Auto) 21-50 /hpf (0-5) H 04/22/25 02:15 Urine RBC (Auto) >20 /hpf (0-2) H 04/22/25 02:15 U Hyaline Cast (Auto) >20 /lpf (0-2) H 04/22/25 02:15 U Epithel Cells (Auto) 3-5 /hpf (0-2) H 04/22/25 02:15 Urine Bacteria (Auto) 3+ (None Seen) H 04/22/25 02:15 Calcium Oxalate Crystal Present (None Prsent) A 04/22/25 02:15 Granular Casts Present /lpf (None Prsent) A 04/22/25 02:15 Urine Mucus Present (None Prsent) A 04/22/25 02:15 Urine Comment 04/22/25 02:15 Urine Opiates Screen Neg (Neg) 04/22/25 02:15 Ur Methadone, Qual Neg (Neg) 04/22/25 02:15 Urine Fentanyl Screen Neg (Neg) 04/22/25 02:15 Acetaminophen 3 ug/ml (10-30) L 04/22/25 04:50 Urine Barbiturates Neg (Neg) 04/22/25 02:15 Ur Phencyclidine (PCP) Neg (Neg) 04/22/25 02:15 U Amphetamin/Meth Scrn Neg (Neg) 04/22/25 02:15 MDMA (Ecstasy) Screen Neg (Neg) 04/22/25 02:15 U Benzodiazepines Scrn Neg (Neg) 04/22/25 02:15 Ur Cocaine Metabolite Neg (Neg) 04/22/25 02:15 U Marijuana (THC) Screen Neg (Neg) 04/22/25 02:15 Adenovirus (PCR) Not Detected (NotDetected) 04/22/25 02:20 B. pertussis DNA (PCR) Not Detected (NotDetected) 04/22/25 02:20 B.parapertussis DNA PCR Not Detected (NotDetected) 04/22/25 02:20 C. pneumoniae DNA (PCR) Not Detected (NotDetected) 04/22/25 02:20 Coronavirus OC43 (PCR) Not Detected (NotDetected) 04/22/25 02:20 Coronavirus HKU1 (PCR) Not Detected (NotDetected) 04/22/25 02:20 Coronavirus 229E (PCR) Not Detected (NotDetected) 04/22/25 02:20 SARS-CoV-2 (PCR) Not Detected (NotDetected) 04/22/25 02:20 Coronavirus NL63 (PCR) Not Detected (NotDetected) 04/22/25 02:20 Human Metapneumovir PCR Not Detected (NotDetected) 04/22/25 02:20 Influenza Type A (PCR) Not Detected (NotDetected) 04/22/25 02:20 Influenza Type B (PCR) Not Detected (NotDetected) 04/22/25 02:20 M. pneumoniae (PCR) Not Detected (NotDetected) 04/22/25 02:20 Parainfluenza 1 (PCR) Not Detected (NotDetected) 04/22/25 02:20 Parainfluenza 2 (PCR) Not Detected (NotDetected) 04/22/25 02:20 Parainfluenza 3 (PCR) Not Detected (NotDetected) 04/22/25 02:20 Parainfluenza 4 (PCR) Not Detected (NotDetected) 04/22/25 02:20 RSV (PCR) Not Detected (NotDetected) 04/22/25 02:20 Entero/Rhino (PCR) Not Detected (NotDetected) 04/22/25 02:[address] 04/22/25 02:21 EXAM: CT head/brain wo con CLINICAL HISTORY: Severe headache. TECHNIQUE: Axial non-contrast CT scan of the brain was performed from the skull base to the high parietal region. One of the following dose reduction techniques were utilized for this exam: Automated exposure control, adjustment of the mA and/or kV according to patient size, use of iterative reconstruction. COMPARISON: None available. FINDINGS: Brain Parenchyma: Normal attenuation of the cerebral hemispheres, cerebellum, and brainstem. No evidence of acute infarct, hemorrhage, or mass effect. No abnormal areas of hypo- or hyperattenuation. Ventricular System: Ventricles are normal in size and configuration. No evidence of hydrocephalus or ventricular enlargement. Subarachnoid Spaces: Normal sulci and cisterns. No evidence of subarachnoid hemorrhage or extra-axial fluid collections. Cerebellum and Brainstem: No masses, lesions, or areas of abnormal density. Orbits: Normal appearance of the globes, optic nerves, and extraocular muscles. No evidence of orbital masses or abnormal density. Sinuses: Clear paranasal sinuses. No evidence of sinusitis or mucosal thickening. Mastoid Air Cells: Clear mastoid air cells. No evidence of mastoiditis. Skull: Normal skull morphology. IMPRESSION: No acute intra-cranial pathology. Electronically signed by Ridge Avalos 04-22-2025 04:06 AM Venous Doppler Study 04/22/25 03:37 EXAM: US venous doppler LE CLINICAL HISTORY: Rule out DVT. TECHNIQUE: Ultrasound examination of bilateral lower extremity veins was performed in real time and duplex. One or more of the following were performed- spectral analysis, resistive index, waveform analysis, and pulsed Doppler. COMPARISON: 03/05/2024, Venous doppler. FINDINGS: Normal phasic, non-pulsatile, and spontaneous flow is noted in the bilateral visualized greater saphenous, common femoral, superficial femoral, and popliteal veins. Normal color flow noted in profunda femoris, anterior tibial, posterior tibial, and peroneal veins; however, compression and augmentation images of these veins are not available. The other visualized veins of both lower extremities demonstrate normal compressibility. No sonographic evidence of acute deep vein thrombosis (DVT) is detected in the visualized veins of both lower extremities. Compression and Augmentation: All visualized evaluated veins compress fully with the applied transducer pressure. Augmentation of venous flow is noted with distal compression. Additional Findings: No evidence of intraluminal thrombus. Possible minimal soft tissue edema in both lower limbs. IMPRESSION: 1. No sonographic evidence of acute DVT was detected in bilateral common femoral, superficial femoral, popliteal, anterior tibial, posterior tibial, and peroneal veins at the time of examination. 2. Possible minimal soft tissue edema in both lower limbs; however, it was more conspicuous in the prior examination. Disclaimer: DVT could be missed early in the disease when the clot burden is minimal. For patients with moderate and high pretest probability of DVT and negative ultrasound, the [employer] clinical guidelines recommend testing with a D-dimer assay or repeat ultrasound in 5-7 days. If symptoms worsen, the Society of Radiologists in Ultrasound recommends repeating the ultrasound even earlier. Electronically signed by Ridge Avalos 04-22-2025 06:15 AM Chest X-Ray 04/22/25 04:00 EXAM: XR chest 1V portable CLINICAL HISTORY: Follow-up infiltrates TECHNIQUE: An X-ray image of the chest is obtained in AP projection. COMPARISON: 04/22/2025 01:11:00 REMOTE BROADCAST TECHNICIAN FINDINGS: Pulmonary Parenchyma: Bilateral pulmonary opacities/infiltrates that could be inflammatory or secondary to pulmonary edema. Obliteration and leveling of the left lower lung zone may be secondary to pleural effusion. Clear right costophrenic angle. Heart and Mediastinum: Prominent hilar Widened superior mediastinum (stable) Cardiomegaly (stable). Bony Thorax: Bony thorax appears intact without fractures or deformities. Soft Tissues: Chest leads Endotracheal tube 4.8 cm above the [place] NGT is coursing below the left hemidiaphragm; the distal end is not included. (new) IMPRESSION: 1. No significant changes compared to the prior study dated 04/22/2025 01:11:00 REMOTE BROADCAST TECHNICIAN 2. Unchanged bilateral pulmonary opacities/infiltrates that could be inflammatory or secondary to pulmonary edema, which needs clinical correlation 3. Obliteration and leveling of the left lower lung zone may be secondary to pleural effusion. 4. An endotracheal tube is seen in situ, 4.8 cm above the [place]. 5. NGT is coursing below the left hemidiaphragm; the distal end is not included. (new) Electronically signed by Ridge Avalos 04-22-2025 06:07 AM Code Status & VTE Plan VTE Prophylaxis Plan VTE Prophylaxis will be ordered: Yes PG Care Time/CCT Total # of Minutes Spent Total Time Spent with Patient: Total time spent is greater than 50% in coordination of care (as documented) at patient's floor/unit and/or counseling patient: Coding Level of Care Code 67295 INT INP/OBS CARE 3/75MIN Diagnoses Acute on chronic respiratory failure with hypoxia and hypercapnia J96.21; J96.22 CHF (congestive heart failure) I50.9 HTN (hypertension), benign I10 EMELY (obstructive sleep apnea) G47.33
--- NOTE | 2025-04-22 05:53 | Critical Care Consultation ---
Date of Consultation April 22, 2025 Assessment & Plan (1) Acute on chronic respiratory failure with hypoxia and hypercapnia: (2) Morbid obesity: (3) Physical deconditioning: (4) CHF (congestive heart failure): (5) Obesity hypoventilation syndrome: (6) Restrictive lung disease: (7) Bilateral pulmonary infiltrates: (8) Failure to thrive in adult: Plan Reason Critically Ill: 1. Acute on chronic hypoxic and hypercapnic respiratory failure 2. Morbid obesity 3. Diffuse pulmonary edema 4. Pleural effusion 5. Acute toxic/metabolic encephalopathy 2/2 CO2 narcosis 6. Pulmonary hypertension due to chronic pulmonary disease 7. Hypotension due to sedation-associated vasoplegia Neuro - [facility] ICU: Negative RASS GOAL 0 to -1 Continue Precedex infusion HOB 30 APAP PRN pain/fever if acetaminophen level is WNL CTH negative Cardiac - Continue norepinephrine for MAP goal > 65mmHg TTE ordered POCUS at bedside performed showing grossly intact LV systolic function, RV mildly dilated without septal flattening, IVC dilated and non-collapsible, valves not assessed due to limited views Venous doppler BLE pending, PE considered less likely Admit EKG Respiratory - Mechanical ventilation, wean parameters as able Blood gas pending, follow EtCO2 Likely extubate to NIV SpO2 goal > 88% Repeat CXR pending GI - No acute concerns Diet: NPO except meds via OGT SUP: Home PPI Bowel regimen: Senokot-S, miralax RENAL/LYTES - Replete electrolytes as indicated Perez for accurate I/Os, removal per nursing protocol Maintain net even to net negative Consider diuresis today ENDO - BG 140-180 per SCCM guidelines ISS if needed while inpatient HEME/ONC/OTHER - Venous doppler pending, low suspicion for PE. He is high risk given bed bound status Wound nurse consult, appreciate assistance ID - No acute concerns, WBC WNL, follow fever curve and WBC UC pending, in-line suction dry so unable to obtain specimen LINES/TUBES/DRAINS - ETT (Day #1) OGT (Day #1) Perez (Day #1) PIV x2 DVT PROPHYLAXIS - Enoxaparin DISPOSITION - ICU CODE STATUS - Full pending further discussions with patient and family Palliative Consult pending, appreciate involvement I have personally spent 46 minutes of critical care time in the direct management of this patient. This is a life/limb threatening event. This includes time spent evaluating patient, direct bedside care, chart review, placing orders, interpretation of diagnostic studies, discussion with consultants, patient, and family members, as well as other required patient management activities. This time is exclusive of all separately billable procedures, and teaching time and separate from and in addition to any other critical care service time. Thank you for allowing us to participate in the care of this patient. Please refer to my attending physician's documentation for any further recommendations. History of Present Illness Reason for Consultation: Respiratory failure Requesting Physician: Lizabeth Attending Physician: Eduardo History of Present Illness Mr. Landon Godinez is a 54YOM with a history of morbid obesity (BMI 50-60), HTN, HFpEF with severe LVH, pulmonary hypertension, OHS/EMELY with treatment non- compliance, chronic mixed respiratory failure on 2L NC O2, psoriasis, severe OA, bedbound status who presented to [facility] ED from home in the core rescuer of 04/22/2025. EMS summoned to patient's residence due to sudden unresponsiveness. On EMS arrival, patient's SpO2 was in the 50s. He was emergently intubated without incident, initial EtCO2 99. He received naloxone due to pinpoint pupils and became agitated requiring midazolam en route. SpO2 low 80s per EMS. PEEP increased to 10 on arrival to ED with significant improvement in oxygenation. A CXR revealed bilateral opacities/infiltrates concerning for inflammation or pulmonary edema with L pleural effusion. CTPE attempted but patient too large to go through our CT scanner. CTH was able to be performed which was WNL. Received 500cc IVF bolus. Initial ABG 7.31/80/136/40. Labs revealed hyperglycemia. UA +. UDS negative. RVP negative. ICU was consulted for admission. Patient seen in ED A01. He is awake and alert, intubated. Vent settings 540/24/10/0.5. Adjusted to 540/18/12/0.5. Hemodynamically stable in NSR. at bedside and able to provide additional history. Patient is on 2L NC O2 at baseline, does not wear his prescribed AVAPS because "it was taken away a while ago". He has been progressively short of breath for 2 or so days, has been titrating his oxygen up to 5L because of hypoxia (mid-80s). He complained of a headache starting 9/6 AM. Lack of appetite 9/7 AM. Became unresponsive 04/21 PM. reports his SpO2 was 70 despite 5L NC and patient was quite diaphoretic. This is when she called paramedics. She reports compliance with all medications. She has been giving him 2 tablets of acetaminophen every 4 hours since his headache started as well as Excedrin migraine. He had some nausea during the day on 04/21 without emesis. Drank a small amount of water, otherwise no intake since 04/20. She tells me patient was on hospice for a period of time but he "got better" and was taken off. He takes amlodipine, furosemide, and KCl. Patient pointing to ETT indicating he would like it removed. D/w and patient's sister regarding options moving forward - I recommended keeping patient intubated until the morning to optimize him and considering extubation to NIV. Further discussions regarding goals of care can be held at that time. Based on our conversation the patient and family would be in favor of moving toward comfort measures or hospice. indicates he would be compliant with NIV at home if this was provided on discharge. Patient also has a dislocated shoulder following an admission to [facility]. He received PT for the shoulder. would like repeat imaging and asks if we can try to fix this during admission. I ordered routine XR shoulder for today. Allergies Allergy/AdvReac Type Severity Reaction Status Date / Time zinc Allergy Rash Verified 04/14/24 21:53 Home Medications Medication Instructions Recorded Confirmed Type nystatin 100,000 unit/gram topical 1 applic EXT DAILY PRN Rash under 03/14/24 03/27/24 Rx powder (Nystop) skin folds #15 grams bacitracin zinc 500 unit-polymyxin 1 applic topical Q8H 03/27/24 03/27/24 Hi story B 10,000 unit/gram topical ointment (Polysporin) etodolac 200 mg capsule 200 mg PO Q12H PRN pain #14 caps 03/27/24 03/27/24 Rx acetaminophen 325 mg tablet 650 mg (2 x 325 mg) PO Q6H #60 tabs 04/20/24 Rx ammonium lactate 5 % lotion 1 applic EXT DAILY PRN dry skin 04/20/24 Rx (Lac-Hydrin Five) #226 grams amoxicillin 875 mg-potassium 1 tab PO BIDM #7 tabs 04/20/24 Rx clavulanate 125 mg tablet hydrocortisone 2.5 % topical cream 1 applic topical BID PRN psoriasis 04/20/24 Rx #14 grams neomycin-bacitracn Zn-polymyx 3.5 1 applic EXT BID PRN skin 04/20/24 Rx mg-400 unit-5,000 unit/gram top irritation #14 grams oint (Triple Antibiotic) tramadol 50 mg tablet 50 mg PO Q6H PRN pain #30 tabs 04/20/24 Rx celecoxib 100 mg capsule 100 mg PO BID PRN Pain #60 caps 04/21/24 Rx furosemide 80 mg tablet 80 mg PO .EVERY AFTERNOON #30 tabs 04/21/24 Rx ipratropium 0.5 mg-albuterol 3 mg 3 ml NEB QIDR #90 mL 04/21/24 Rx (2.5 mg base)/3 mL nebulization soln ipratropium 20 mcg-albuterol 100 1 puff inhalation Q4 #4 grams 04/21/24 Rx mcg/actuation mist for inhalation (Combivent Respimat) loperamide 2 mg capsule (Imodium 2 mg PO Q6H PRN loose stool #30 04/21/24 Rx A-D) caps magnesium oxide 400 mg (241.3 mg 400 mg PO AMPM #60 tabs 04/21/24 Rx magnesium) tablet melatonin 3 mg tablet 6 mg (2 x 3 mg) PO HS PRN sleep 04/21/24 Rx #60 tabs metformin 500 mg tablet,extended 1,000 mg (2 x 500 mg) PO BID #60 04/21/24 Rx release 24 hr tabs metoprolol tartrate 25 mg tablet 25 mg PO AMPM #60 tabs 04/21/24 Rx pantoprazole 40 mg tablet,delayed 40 mg PO DAILYBB #30 tabs 04/21/24 Rx release potassium chloride 10 mEq 10 meq PO AMPM #60 tabs 04/21/24 Rx tablet,extended release(part/cryst) Patient History Medical History Prediabetes Candidiasis of mouth and esophagus AV block Benign essential hypertension Tinea cruris Psoriasis Pickwickian syndrome Cellulitis of leg, right Morbid obesity with BMI of 60.0-69.9, adult Surgical History History of appendectomy History of cholecystectomy Social History Smoking Status: Unknown if ever smoked Tobacco Type: Cigarettes Cigarettes Per Day: pack per day; Second Hand Exposure: No; Do You Dip or Chew Tobacco: No; Hx Alcohol Use: No (quit 5 years ago per pt) Hx Substance Use: No Preferred Language: Slovenian Communication Ability: Effective Top Ironer Required: No Beliefs That Will Affect Care: None Current Living Situation: Spouse Feels Safe at Home: Yes Assistive Devices: Cane Review of Systems Review of Systems: All systems reviewed & are unremarkable except as noted in Subjective Physical Exam Constitutional: + morbidly obese, + frail appearing, 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 and + mechanically ventilated; no acute distress Eyes: PERRL, conjunctivae normal, anicteric sclerae ENMT: external ear and nose normal, oropharynx normal ETT and OGT in place Neck: trachea midline, no thyromegaly Respiratory: normal respiratory effort Auscultation: + diminished lung sounds and + crackles; no wheezes Cardiovascular: Rate/Rhythm: regular rate and regular rhythm Heart Sounds: + murmur Vessels: no JVD and no carotid bruit Extremities: normal capillary refill and + edema Gastrointestinal (Abdomen): Inspection/Auscultation: abdomen normal to inspection, normal bowel sounds and + significant pannus Percussion/Palpation: abdomen soft; abdomen nontender, no guarding and abdomen not rigid Musculoskeletal: Head/Neck/Chest: normocephalic and head atraumatic Extremities: + limited ROM of extremities and + muscle atrophy mild foot drop bilaterally, wrist drop Skin: normal turgor, + lesion, + crusts, + dry skin and + lichenification psoriasis plaque, shallow pressure ulcers on BLE without signs of active infection Neurologic: awake; no focal motor deficits Cranial Nerves: PERRL Genitourinary: Perez in place draining dark urine Results & Data Results & Data Vital Signs (Past 12 Hours) Vital Signs Temp Pulse Resp BP Pulse Ox O2 Del Method FiO2 04/22/25 05:30 59 L 18 124/89 100 Mechanical Vent 04/22/25 05:26 62 04/22/25 05:06 57 L 18 125/88 99 Mechanical Vent 04/22/25 04:42 58 L 18 98/71 L 99 Mechanical Vent 04/22/25 04:42 59 L 18 76/52 L 99 Mechanical Vent 04/22/25 04:24 70 24 87/62 L 95 Mechanical Vent 04/22/25 04:00 70 24 102/77 96 Mechanical Vent 04/22/25 03:33 67 22 92/70 L 96 Mechanical Vent 04/22/25 03:32 24 50 04/22/25 03:24 71 22 91/68 L 96 Mechanical Vent 04/22/25 03:20 34.8 C L 04/22/25 02:41 77 22 121/71 97 Mechanical Vent 04/22/25 02:10 Mechanical Vent 04/22/25 02:10 Mechanical Vent 04/22/25 02:09 81 22 80/62 L 100 Mechanical Vent 60 04/22/25 01:57 85 04/22/25 01:55 80 17 83 L Mechanical Vent 04/22/25 01:51 85 17 93/56 L 86 L Mechanical Vent Laboratory Results Reviewed Diagnostic Findings Reviewed Medications Administered See [facility] Procedure Codes (Charges) Ventilator Management Ventilator Managment: [id number] Ventilation assist and management; Hospital inpt/obs, intl day Coding Level of Care Code 29774 IN/OBS CONSULT LVL 3,45M Diagnoses Acute on chronic respiratory failure with hypoxia and hypercapnia J96.21; J96.22 Morbid obesity E66.01 Physical deconditioning R53.81 CHF (congestive heart failure) I50.9 Obesity hypoventilation syndrome E66.2 Restrictive lung disease J98.4 Bilateral pulmonary infiltrates R91.8 Failure to thrive in adult R62.7 CPT Codes Ventilator Management - Ventilator Managment: [id number] Ventilation assist and management; Hospital inpt/obs, intl day ([id number]) Time Spent (min) 46
--- NOTE | 2025-04-22 06:08 | XRay Report ---
EXAM: XR chest 1V portable CLINICAL HISTORY: Follow-up infiltrates TECHNIQUE: An X-ray image of the chest is obtained in AP projection. 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 Obliteration and leveling of the left lower lung zone may be secondary to pleural effusion. Clear right costophrenic angle. Heart and Mediastinum: Prominent hilar Widened superior mediastinum (stable) Cardiomegaly (stable). Bony Thorax: Bony thorax appears intact without fractures or deformities. Soft Tissues: Chest leads Endotracheal tube 4.8 cm above the [place]ita NGT is coursing below the left hemidiaphragm; the distal end is not included. (new) IMPRESSION: 1. No significant changes compared to the prior study dated 04/22/2025 01:11:00 SKIVER MACHINE OPERATOR 2. Unchanged bilateral pulmonary opacities/infiltrates that could be inflammatory or secondary to pulmonary edema, which needs clinical correlation 3. Obliteration and leveling of the left lower lung zone may be secondary to pleural effusion. 4. An endotracheal tube is seen in situ, 4.8 cm above the nakita. 5. NGT is coursing below the left hemidiaphragm; the distal end is not included. (new) Electronically signed by Ridge Avalos 04-22-2025 06:07 AM
--- NOTE | 2025-04-22 06:16 | Ultrasound Report ---
EXAM: US venous doppler LE BI CLINICAL HISTORY: Rule out DVT. TECHNIQUE: Ultrasound examination of bilateral lower extremity veins was performed in real time and duplex. One or more of the following were performed- spectral analysis, resistive index, waveform analysis, and pulsed Doppler. COMPARISON: 03/05/2024, Venous doppler. FINDINGS: Normal phasic, non-pulsatile, and spontaneous flow is noted in the bilateral visualized greater saphenous, common femoral, superficial femoral, and popliteal veins. Normal color flow noted in profunda femoris, anterior tibial, posterior tibial, and peroneal veins; however, compression and augmentation images of these veins are not available. The other visualized veins of both lower extremities demonstrate normal compressibility. No sonographic evidence of acute deep vein thrombosis (DVT) is detected in the visualized veins of both lower extremities. Compression and Augmentation: All visualized evaluated veins compress fully with the applied transducer pressure. Augmentation of venous flow is noted with distal compression. Additional Findings: No evidence of intraluminal thrombus. Possible minimal soft tissue edema in both lower limbs. IMPRESSION: 1. No sonographic evidence of acute DVT was detected in bilateral common femoral, superficial femoral, popliteal, anterior tibial, posterior tibial, and peroneal veins at the time of examination. 2. Possible minimal soft tissue edema in both lower limbs; however, it was more conspicuous in the prior examination. Disclaimer: DVT could be missed early in the disease when the clot burden is minimal. For patients with moderate and high pretest probability of DVT and negative ultrasound, the [employer] clinical guidelines recommend testing with a D-dimer assay or repeat ultrasound in 5-7 days. If symptoms worsen, the Society of Radiologists in Ultrasound recommends repeating the ultrasound even earlier. Electronically signed by Ridge Avalos 04-22-2025 06:15 AM
[2025-04-22] MEDS ORDERED: ONDANSETRON INJ 2 MG/ML 2 ML VIAL IV PRN (06:37)
[2025-04-22] MEDS ORDERED: CARBOHYDRATES FOR HYPOGLYCEMIA PO PRN (06:37)
[2025-04-22] MEDS ORDERED: GLUCOSE 10 TAB/TUBE PO PRN (06:37)
[2025-04-22] MEDS ORDERED: ACETAMINOPHEN 325 MG TAB PO PRN (06:37)
[2025-04-22] MEDS ORDERED: GLUCOSE 40% GEL 15 GM TUBE PO PRN (06:37)
[2025-04-22] MEDS ORDERED: PHARMACY GLYCEMIC MGMT CONSULT PRN (06:37)
[2025-04-22] MEDS ORDERED: DEXTROSE 50% 50 ML SYRINGE IV PRN (06:37)
[2025-04-22] MEDS ORDERED: GLUCAGON FOR INJ 1 MG VIAL SQ PRN (06:37)
[2025-04-22] MEDS ORDERED: ALBUTEROL 0.083% NEBU SOLN 3 ML VIAL NEB PRN (06:37)
[2025-04-22] MEDS ORDERED: DOCUSATE SODIUM 100 MG CAP PO PRN (06:37)
[2025-04-22] MEDS: CALCIUM GLUCONATE 1,000 MG/60 ML BAG IV SCH (07:14)
[2025-04-22] MEDS: FUROSEMIDE 40 MG/4 ML VIAL IV ONE ×2 (07:14→16:23)
[2025-04-22] MEDS ORDERED: INSULIN ASPART PER UNIT CHARGE SC SCH ×2 (07:30)
[2025-04-22] MEDS: INSULIN ASPART PER UNIT CHARGE SC SCH (07:33)
[2025-04-22 07:54] LABS: Folate (Folic Acid),Ser orPlas 8.66 ng/ml (>5.38); Vitamin B12 459.0 pg/ml (180-914)
[2025-04-22] MEDS: cefTRIAXone SODIUM 2,000 MG/50 ML BAG IV SCH (08:25)
--- NOTE | 2025-04-22 08:25 | XRay Report ---
EXAM: XR shoulder LT min 2V routine CLINICAL HISTORY: Dislocated shoulder TECHNIQUE: X-ray images of the left shoulder were obtained in anteroposterior (AP) and Y-view projections. COMPARISON: No prior studies available for comparison. FINDINGS: Bone Structure: Abnormal anteroinferior subluxation of the humeral head is noted. Cortical irregularity is noted along humeral shaft - correlate with old history of trauma. The remaining bone structure is normal and aligned. No evidence of fracture is seen. No osseous lesions or other abnormalities are identified. Joint Spaces: There is widening of the glenohumeral and subacromial spaces. The acromioclavicular joint space is normal. Soft Tissues: The soft tissues appear normal and unremarkable. No soft tissue swelling, calcifications, or foreign bodies are noted. Additional Findings: No signs of osteoarthritis, bone spurs, or lytic or sclerotic lesions are present. Limited image of left lung shows perihilar veiling/opacities - repeat X-ray for chest if clinically indicated. IMPRESSION: Inferior subluxation of the humeral head, with no evidence of a gross acute fracture. Disclaimer: A subtle bone abnormality or fracture may not be readily apparent on X-rays, thus clinical correlation and further imaging including follow-up CT, MRI, or follow-up X-rays are advised as needed. Electronically signed by Ridge Avalos 04-22-2025 08:25 AM
[2025-04-22 09:13] LABS: Hemoglobin A1C 5.1 % (4.5-5.6)
--- NOTE | 2025-04-22 09:16 | Palliative Care Consultation ---
Date of Consultation April 22, 2025 History of Present Illness Attending Physician: Candice Moore MD History of Present Illness Mr. Landon Godinez is a 54YOM with a history of morbid obesity (BMI 50-60), HTN, HFpEF with severe LVH, pulmonary hypertension, OHS/EMELY with treatment non- compliance, chronic mixed respiratory failure on 2L NC O2, psoriasis, severe OA, bedbound status who presented to [facility] ED from home in the ux lead of 04/22/2025. EMS summoned to patient's residence due to sudden unresponsiveness. On EMS arrival, patient's SpO2 was in the 50s. He was emergently intubated without incident, initial EtCO2 99. He received naloxone due to pinpoint pupils and became agitated requiring midazolam en route. SpO2 low 80s per EMS. PEEP increased to 10 on arrival to ED with significant improvement in oxygenation. A CXR revealed bilateral opacities/infiltrates concerning for inflammation or pulmonary edema with L pleural effusion. CTPE attempted but patient too large to go through our CT scanner. CTH was able to be performed which was WNL. Received 500cc IVF bolus. Initial ABG 7.31/80/136/40. Labs revealed hyperglycemia. UA +. UDS negative. RVP negative. ICU was consulted for admission. Patient seen in ED A01. He is awake and alert, intubated. Vent settings 540/24/10/0.5. Adjusted to 540/18/12/0.5. Hemodynamically stable in NSR. at bedside and able to provide additional history. Patient is on 2L NC O2 at baseline, does not wear his prescribed AVAPS because "it was taken away a while ago". Allergies Allergy/AdvReac Type Severity Reaction Status Date / Time zinc Allergy Rash Verified 04/14/24 21:53 Home Medications Medication Instructions Recorded Confirmed Type nystatin 100,000 unit/gram topical 1 applic EXT DAILY PRN Rash under 03/14/24 03/27/24 Rx powder (Nystop) skin folds #15 grams bacitracin zinc 500 unit-polymyxin 1 applic topical Q8H 03/27/24 03/27/24 History B 10,000 unit/gram topical ointment (Polysporin) etodolac 200 mg capsule 200 mg PO Q12H PRN pain #14 caps 03/27/24 03/27/24 Rx acetaminophen 325 mg tablet 650 mg (2 x 325 mg) PO Q6H #60 tabs 04/20/24 Rx ammonium lactate 5 % lotion 1 applic EXT DAILY PRN dry skin 04/20/24 Rx (Lac-Hydrin Five) #226 grams amoxicillin 875 mg-potassium 1 tab PO BIDM #7 tabs 04/20/24 Rx clavulanate 125 mg tablet hydrocortisone 2.5 % topical cream 1 applic topical BID PRN psoriasis 04/20/24 Rx #14 grams neomycin-bacitracn Zn-polymyx 3.5 1 applic EXT BID PRN skin 04/20/24 Rx mg-400 unit-5,000 unit/gram top irritation #14 grams oint (Triple Antibiotic) tramadol 50 mg tablet 50 mg PO Q6H PRN pain #30 tabs 04/20/24 Rx celecoxib 100 mg capsule 100 mg PO BID PRN Pain #60 caps 04/21/24 Rx furosemide 80 mg tablet 80 mg PO .EVERY AFTERNOON #30 tabs 04/21/24 Rx ipratropium 0.5 mg-albuterol 3 mg 3 ml NEB QIDR #90 mL 04/21/24 Rx (2.5 mg base)/3 mL nebulization soln ipratropium 20 mcg-albuterol 100 1 puff inhalation Q4 #4 grams 04/21/24 Rx mcg/actuation mist for inhalation (Combivent Respimat) loperamide 2 mg capsule (Imodium 2 mg PO Q6H PRN loose stool #30 04/21/24 Rx A-D) caps magnesium oxide 400 mg (241.3 mg 400 mg PO AMPM #60 tabs 04/21/24 Rx magnesium) tablet melatonin 3 mg tablet 6 mg (2 x 3 mg) PO HS PRN sleep 04/21/24 Rx #60 tabs metformin 500 mg tablet,extended 1,000 mg (2 x 500 mg) PO BID #60 04/21/24 Rx release 24 hr tabs metoprolol tartrate 25 mg tablet 25 mg PO AMPM #60 tabs 04/21/24 Rx pantoprazole 40 mg tablet,delayed 40 mg PO DAILYBB #30 tabs 04/21/24 Rx release potassium chloride 10 mEq 10 meq PO AMPM #60 tabs 04/21/24 Rx tablet,extended release(part/cryst) Patient History Medical History Respiratory failure requiring intubation Prediabetes Candidiasis of mouth and esophagus AV block Benign essential hypertension Tinea cruris Psoriasis Pickwickian syndrome Cellulitis of leg, right Morbid obesity with BMI of 60.0-69.9, adult Surgical History History of appendectomy History of cholecystectomy Social History Smoking Status: Former smoker Tobacco Type: Cigarettes Cigarettes Per Day: pack per day; Second Hand Exposure: No; Do You Dip or Chew Tobacco: No; Hx Alcohol Use: No Hx Substance Use: No Preferred Language: Zambian Communication Ability: Effective Tube Cutter Required: No Beliefs That Will Affect Care: None Current Living Situation: Spouse Feels Safe at Home: Yes Assistive Devices: Hospital Bed and Oxygen - Continuous Results & Data Vital Signs (Past 12 Hours) Vital Signs Temp Pulse Pulse Resp BP BP Pulse Ox 04/22/25 08:48 36.6 C 58 L 18 102/79 97 04/22/25 08:30 36.6 C 56 L 18 91/69 L 94 04/22/25 08:21 36.5 C 57 L 18 88/54 L 95 04/22/25 08:17 56 L 18 98 04/22/25 08:16 83/56 L 04/22/25 08:03 36.5 C 57 L 18 83/63 L 97 04/22/25 07:48 36.4 C L 56 L 18 95/68 L 97 04/22/25 07:33 36.3 C L 51 L 14 113/80 99 04/22/25 07:00 36.1 C L 56 L 18 102/69 98 04/22/25 06:37 36 C L 56 L 20 116/71 100 04/22/25 06:07 35.8 C L 04/22/25 06:00 58 L 18 120/86 100 04/22/25 05:30 59 L 18 124/89 100 04/22/25 05:26 62 04/22/25 05:06 57 L 18 125/88 99 04/22/25 04:42 58 L 18 98/71 L 99 04/22/25 04:42 59 L 18 76/52 L 99 04/22/25 04:24 70 24 87/62 L 95 04/22/25 04:00 70 24 102/77 96 04/22/25 03:33 67 22 92/70 L 96 04/22/25 03:32 24 04/22/25 03:24 71 22 91/68 L 96 04/22/25 03:20 34.8 C L 04/22/25 02:41 77 22 121/71 97 04/22/25 02:10 04/22/25 02:10 04/22/25 02:09 81 22 80/62 L 100 04/22/25 01:57 85 04/22/25 01:55 80 17 83 L 04/22/25 01:51 85 17 93/56 L 86 L O2 Del Method FiO2 04/22/25 08:48 Mechanical Vent 40 04/22/25 08:30 Mechanical Vent 40 04/22/25 08:21 Mechanical Vent 40 04/22/25 08:17 40 04/22/25 08:16 04/22/25 08:03 Mechanical Vent 40 04/22/25 07:48 Mechanical Vent 40 04/22/25 07:33 Mechanical Vent 40 04/22/25 07:00 Mechanical Vent 40 04/22/25 06:37 Mechanical Vent 04/22/25 06:07 04/22/25 06:00 04/22/25 05:30 Mechanical Vent 04/22/25 05:26 04/22/25 05:06 Mechanical Vent 04/22/25 04:42 Mechanical Vent 04/22/25 04:42 Mechanical Vent 04/22/25 04:24 Mechanical Vent 04/22/25 04:00 Mechanical Vent 04/22/25 03:33 Mechanical Vent 04/22/25 03:32 50 04/22/25 03:24 Mechanical Vent 04/22/25 03:20 04/22/25 02:41 Mechanical Vent 04/22/25 02:10 Mechanical Vent 04/22/25 02:10 Mechanical Vent 04/22/25 02:09 Mechanical Vent 60 04/22/25 01:57 04/22/25 01:55 Mechanical Vent 04/22/25 01:51 Mechanical Vent PG Care Time/CCT Total # of Minutes Spent Total Time Spent with Patient: Total time spent is greater than 50% in coordination of care (as documented) at patient's floor/unit and/or counseling patient: Coding
[2025-04-22 09:53] LABS: iSTAT Art Bld Gas Base Excess 18.0 meg/L (-9-1.8); iSTAT Art Bld Gas pCO2 Correct 71 mmHg (35-46); iSTAT Art Bld Gas pH Corrected 7.385 (7.35-7.45); iSTAT Arterial Blood Gas pO2 C 77
[2025-04-22] MEDS: POTASSIUM CHLORIDE / WTR 10 MEQ/100 ML PLCT IV SCH ×2 (11:09→11:21)
[2025-04-22] MEDS: PANTOprazole 40 MG/10 ML SYR IV SCH ×2 (11:21→21:21)
--- NOTE | 2025-04-22 11:37 | XCELERA ---
[id number] \\[id number]
--- NOTE | 2025-04-22 11:40 | Critical Care Progress Note ---
Date of Service April 22, 2025 Assessment & Plan (1) Acute on chronic respiratory failure with hypoxia and hypercapnia: (2) Obesity hypoventilation syndrome: (3) Morbid obesity: (4) Bilateral pulmonary infiltrates: (5) CHF (congestive heart failure): (6) Hypotension: Plan Patient is a 54-year-old male with a history significant for morbid obesity, hypertension, HFpEF, pulmonary hypertension, obesity hypoventilation/EMELY without home CPAP, chronic hypoxic and hypercapnic respiratory failure with 2 L home oxygen, diffuse psoriasis, debility with chronic bedbound status. The patient is admitted to the medical ICU after presenting to the ER on 04/22/2025 with complaint of unresponsiveness. The patient was found to be hypoxic and intubated emergently in the emergency department. Found to have severe hypercapnia. Imaging of the chest with x-ray was obtained which showed bilateral infiltrates concerning for edema versus pneumonia. D-dimer was elevated however the patient was unable to obtain CT due to body habitus. Duplex of the lower extremities was negative for DVT. The patient was previously on home hospice. According to the he has not ambulated in over a year. After 6 months however the hospice and the has been having to take care of him slowly on her own at home. The patient's home AVAPS machine was revoked after hospice was discontinued in November and he has not been on any sort of NIV at home since that time. He has been co mpliant with his home medications. Reason Critically Ill: Acute on chronic hypoxic and hypercapnic respiratory failure requiring intubation on 04/22/2025 Bilateral pulmonary infiltrates concerning for pulmonary edema versus pneumonia Morbid obesity with underlying OHS/EMELY without home NIV Heart failure with preserved ejection fraction with acute exacerbation Underlying pulmonary hypertension Hypotension, likely secondary to medication Severe debility with bedridden status Chronic left humeral head subluxation Neuro: Patient was more alert yesterday. Remains on minimal sedation with Precedex only. Was complaining of headache prior to his presentation to the ER which is a common symptom according to the when he becomes hypercapnic. - Will continue Precedex for sedation. If needed can add fentanyl pushes. Cardiac: Acute exacerbation of HFpEF Underlying pulm hypertension Hypotension, requiring low-dose Levophed -Continue norepinephrine to maintain a MAP of 65. -Hypotension is likely related to Precedex, if the patient's heart rate lowers and blood pressure continues to drop then we can switch to fentanyl pushes. -Known underlying HFpEF and pulmonary hypertension. Was given 1 dose of Lasix this morning. Will repeat with 60 mg IV this evening. -Echo 04/22/2025: LVH, EF 55 to 60%. RV systolic function is normal as measured by TAPSE. Dilated IVC with elevated right atrial pressure of 15 mmHg. Will continue to diurese. Respiratory: Acute on chronic hypoxic hypercapnic respiratory failure, intubated 04/22/2025 Obesity hypoventilation/EMELY, home trilogy machine was revoked when hospice in November Bilateral pulmonary infiltrates concerning for pulm edema versus -Patient will need to be extubated to BiPAP or AVAPS. -Will need to diurese. -Will continue mechanical ventilation today with SBT in the morning. -Will obtain sputum culture, procalcitonin, strep urine antigen. -Continue Rocephin. -Upon discharge the patient will need likely a trilogy machine. -Will add bronchodilators with DuoNebs. GI: NPO. Docusate as needed for constipation. Pantoprazole for GI prophylaxis. RENAL/LYTES: No EVA. Urine is dark however CK is not elevated. -Keep Perez catheter in place. Monitor strict I's and O's. -Diuresing, replacing potassium. : Keep Perez catheter in place. ENDO: Sliding scale insulin. HEME: No significant leukocytosis or anemia. Monitor daily CBC. ID: Bilateral infiltrates concerning for possible community-acquired pneumonia. Mild hypotension, however this is likely secondary to Precedex. - Panculture including sputum, respiratory and urine. - Continue Rocephin for now. - MRSA nares is positive. Feeding: NPO, patient remains on ventilator will start enteral feeding. Fluids: None Analgesia/sedation: Precedex Vasopressors: Norepinephrine Activity: Bedrest Thromboprophylaxis: Heparin subcu Ulcer prophylaxis: Pantoprazole IV Glycemic control: Sliding scale insulin Bowels: Docusate as needed Indwelling catheters: ET tube, PIV, Perez Antibiotics: Rocephin Plan: Patient remain in the ICU. Will continue mechanical ventilation today. Ideally if we can diurese him more then we can do SBT in the morning. I had a long discussion with the patient's at bedside. She says that he would not want to be on a ventilator. He previously was on hospice as described previously. I asked her if she would want us to reintubate him if he failed his extubation and she is not sure. I also asked her about CPR. She is not sure about these and is going to talk with more family and get back to us prior to her extubation trial tomorrow. Patient is requiring low-dose Levophed, I believe this is likely secondary to Precedex use. Patient is calm with the Precedex and will continue it, if his heart rate drops or blood pressure drops more than we can switch to fentanyl pushes. Patient is grossly volume overloaded, IVC is dilated. Received 1 dose of Lasix, had okay output. We will increase to 60 mg IV this evening. Will likely need additional doses tomorrow. I have personally spent 55 minutes of critical care time in the direct management of this patient. This is a life/limb threatening event. This includes time spent evaluating patient, direct bedside care, chart review, placing orders, interpretation of diagnostic studies, discussion with consultants, patient, and family members, as well as other required patient management activities. This time is exclusive of all separately billable procedures, and teaching time and separate from and in addition to any other critical care service time. Admission and Anticipated Discharge Date Admission Date: April 22, 2025 Subjective Past 24-hour events: Admitted to the intensive care unit overnight. Presented to the hospital with unresponsiveness. Found to be hypoxic and required emergent intubation. Remained on mechanical ventilation overnight. No reported fevers. Maintaining saturation with a PEEP of 12 and FiO2 40%. Chest x-ray with bilateral airspace disease, likely volume overload with possible superimposed community-acquired pneumonia. Per respiratory therapy did have some thick secretions this morning. Received 1 dose of Lasix this morning of 40 mg IV. Rounding: at bedside this morning during rounding. She states that the patient was on hospice until November. When hospice ended a lot of the help also stopped and his CPAP also was revoked by the company. He has been without CPAP since November. He has been compliant with his medications. He has not been out of bed in over a year. The patient is comfortable on Precedex, has some mild bradycardia at 55. Requiring low-dose Levophed. Saturating in the mid 90s with FiO2 of 40%. Synchronous with ventilator. Intake: 963 mL Output: 585 mL Net: +378 mL Mechanical ventilation: Volume AC, tidal volume 540, rate 18, PEEP 12 and FiO2 40%. Feeding: NPO IV infusions: Norepinephrine, Precedex Indwelling catheters: PIV, ET tube, Perez catheter Laboratory: CBC: WBC 10, hemoglobin 14, platelet 195 Chemistry: Sodium 139, potassium 4.0, chloride 94, bicarb 44, bun 13, creatinine 0.39, glucose 220 AB.38 with a pCO2 of 77 and pO2 of 70 Review of Systems Review of Systems: Not obtained. Patient mechanically ventilated. Physical Exam Physical Exam: Physical examination: General: Morbidly obese. Appears chronically ill. Intubated and sedated. HEENT: Normocephalic, atraumatic. Sclera are nonicteric. Skin: Warm and dry. Areas of psoriasis, most significant in the inguinal areas. Healing wounds on his heels. Cardiovascular: Heart is a regular rate and rhythm, no murmurs appreciated on my exam. Nonpitting edema. Lungs: Coarse mechanical breath sounds bilaterally. On mechanical ventilation with a FiO2 40% and a PEEP of 12. Abdomen: Protuberant, psoriasis appreciated, no bruising appreciated. 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 Results & Data Results & Data Vital Signs (Past 12 Hours) Vital Signs Temp Pulse Pulse Resp BP BP Pulse Ox 04/22/25 11:00 36.7 C 56 L 18 108/79 97 04/22/25 10:45 36.7 C 53 L 18 105/75 98 04/22/25 10:31 36.7 C 56 L 18 106/77 97 04/22/25 10:30 36.7 C 55 L 18 106/77 97 04/22/25 10:16 36.7 C 55 L 18 108/78 97 04/22/25 10:01 36.6 C 53 L 18 107/76 97 04/22/25 09:45 36.6 C 54 L 18 110/80 97 04/22/25 09:30 36.6 C 54 L 18 105/74 97 04/22/25 09:16 36.6 C 55 L 18 107/83 97 04/22/25 09:00 36.6 C 56 L 18 108/78 97 04/22/25 08:48 36.6 C 58 L 18 102/79 97 04/22/25 08:30 36.6 C 56 L 18 91/69 L 94 04/22/25 08:21 36.5 C 57 L 18 88/54 L 95 04/22/25 08:17 56 L 18 98 04/22/25 08:16 83/56 L 04/22/25 08:03 36.5 C 57 L 18 83/63 L 97 04/22/25 08:00 04/22/25 07:48 36.4 C L 56 L 18 95/68 L 97 04/22/25 07:33 36.3 C L 51 L 14 113/80 99 04/22/25 07:00 36.1 C L 56 L 18 102/69 98 04/22/25 06:37 36 C L 56 L 20 116/71 100 04/22/25 06:07 35.8 C L 04/22/25 06:00 58 L 18 120/86 100 04/22/25 05:30 59 L 18 124/89 100 04/22/25 05:26 62 04/22/25 05:06 57 L 18 125/88 99 04/22/25 04:42 58 L 18 98/71 L 99 04/22/25 04:42 59 L 18 76/52 L 99 04/22/25 04:24 70 24 87/62 L 95 04/22/25 04:00 70 24 102/77 96 04/22/25 03:33 67 22 92/70 L 96 04/22/25 03:32 24 04/22/25 03:24 71 22 91/68 L 96 04/22/25 03:20 34.8 C L 04/22/25 02:41 77 22 121/71 97 04/22/25 02:10 04/22/25 02:10 04/22/25 02:09 81 22 80/62 L 100 04/22/25 01:57 85 04/22/25 01:55 80 17 83 L 04/22/25 01:51 85 17 93/56 L 86 L O2 Del Method FiO2 04/22/25 11:00 Mechanical Vent 40 04/22/25 10:45 Mechanical Vent 40 04/22/25 10:31 Mechanical Vent 40 04/22/25 10:30 Mechanical Vent 40 04/22/25 10:16 Mechanical Vent 40 04/22/25 10:01 Mechanical Vent 40 04/22/25 09:45 Mechanical Vent 40 04/22/25 09:30 Mechanical Vent 40 04/22/25 09:16 Mechanical Vent 40 04/22/25 09:00 Mechanical Vent 40 04/22/25 08:48 Mechanical Vent 40 04/22/25 08:30 Mechanical Vent 40 04/22/25 08:21 Mechanical Vent 40 04/22/25 08:17 40 04/22/25 08:16 04/22/25 08:03 Mechanical Vent 40 04/22/25 08:00 40 04/22/25 07:48 Mechanical Vent 40 04/22/25 07:33 Mechanical Vent 40 04/22/25 07:00 Mechanical Vent 40 04/22/25 06:37 Mechanical Vent 04/22/25 06:07 04/22/25 06:00 04/22/25 05:30 Mechanical Vent 04/22/25 05:26 04/22/25 05:06 Mechanical Vent 04/22/25 04:42 Mechanical Vent 04/22/25 04:42 Mechanical Vent 04/22/25 04:24 Mechanical Vent 04/22/25 04:00 Mechanical Vent 04/22/25 03:33 Mechanical Vent 04/22/25 03:32 50 04/22/25 03:24 Mechanical Vent 04/22/25 03:20 04/22/25 02:41 Mechanical Vent 04/22/25 02:10 Mechanical Vent 04/22/25 02:10 Mechanical Vent 04/22/25 02:09 Mechanical Vent 60 04/22/25 01:57 04/22/25 01:55 Mechanical Vent 04/22/25 01:51 Mechanical Vent Coding Level of Care Code 87541 CRITICAL CARE 1ST 30-74M Diagnoses Acute on chronic respiratory failure with hypoxia and hypercapnia J96.21; J96.22 Obesity hypoventilation syndrome E66.2 Morbid obesity E66.01 Bilateral pulmonary infiltrates R91.8 CHF (congestive heart failure) I50.9 Hypotension I95.9
--- NOTE | 2025-04-22 12:44 | Electrocardiogram Report ---
Test Reason : Blood Pressure : */* mmHG Vent. Rate : 54 BPM Atrial Rate : 54 BPM P-R Int : 252 ms QRS Dur : 116 ms QT Int : 430 ms P-R-T Axes : 65 -59 72 degrees QTcB Int : 407 ms Sinus bradycardia with 1st degree A-V block Left anterior fascicular block Minimal voltage criteria for LVH, may be normal variant Abnormal ECG When compared with ECG of 22-Apr-2025 01:50, (unconfirmed) Significant changes have occurred Confirmed by Saw Chu ([id number]) on 04/22/2025 12:44:06 PM Referred By: REFERRED SELF Confirmed By: Saw Chu
--- NOTE | 2025-04-22 12:50 | History & Physical Bridge Note ---
Date of Service April 22, 2025 History & Physical Bridge Note I have examined the patient, reviewed the History & Physical and in the interval since the performance of the History & Physical I have noted the following changes of clinical significance: Patient remains sedated and intubated, not able to communicate. I discussed his care with his at the bedside and his sister, Radha, on speaker phone. His brings out a bottle of gabapentin and shows it to me and says that the patient just started taking a couple of doses of this the day prior to admission even though it was prescribed on 03/31. He told her that it did not make him feel well and he did not want to take it anymore. Otherwise, I had an extensive discussion with the patient's and sister regarding CODE STATUS. They said that the patient definitely does not want to be resuscitated in the event of cardiac arrest, and that he would not want long-term ventilation, but is okay with intubation for short-term. He definitely would not want a tracheostomy. I changed his CODE STATUS to reflect this conditional CODE STATUS. I also discussed his care with palliative medicine and since I had the palliative medicine/goals of care discussion with the patient, I canceled the palliative medicine consultation. The patient's also says that the patient was compliant with his AVAPS machine at home when it was being paid for by insurance but when he came off hospice, it was no longer paid for and it was taken away. He definitely would wear the mask if insurance was able to pay for it again. I did discuss this with case management who will work on this. The patient's also was concerned that he has had weakness in his entire left upper extremity and pain in the shoulder elbow and hand since his critical care stay for 14 days on the ventilator in [place] in 2023. He can move his whole left upper extremity minimally at best when he is awake and alert. She knows that he has a partially dislocated shoulder joint, but asked for x-rays to be done of the rest of the arm. 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 Finally, gabapentin should be discontinued permanently. I noticed that the prescriber of this medication is a [facility] primary care physician and I will request to the [facility] hospitalist team to take over this patient's care starting 04/23.
--- NOTE | 2025-04-22 13:06 | Pharmacy Report ---
Pharmacy Glycemic Short Note 2 - Date of Service April 22, 2025 - Glycemic Short BSG Results (Last 24 hours): 04/22/25 04/22/25 04/22/25 01:55 02:00 07:31 Glucose 220 H POC Glucose 105 H POC Glucose (other) 220 H 04/22/25 11:50 Glucose POC Glucose 82 POC Glucose (other) OUTPATIENT ANTIDIABETIC REGIMEN: * Metformin 1000 mg PO BID on previous med list- unconfirmed * A1c 5.1% 04/22/25 ASSESSMENT: * Mr. Godinez was admitted for respiratory failure, currently intubated. On metformin outpatient, A1c indicates good control. * BSG elevated in the 200s- novolog ordered/loosened as BSG improved without insulin * Intermittently requiring levophed, will monitor. * Removed from hospice in November PLAN FOR INPATIENT GLYCEMIC CONTROL: * Hold outpatient oral diabetes medications * Basal insulin * Hold * Bolus insulin * NovoLog per scale ACHS or Q6hrs while NPO * Goal Range: Low 140 mg/dL - High 180 mg/dL * Correction Factor: 30 mg/dL/unit * Nutritional / Prandial insulin per carb ratio of 1 unit per -- grams CHO consumed
[2025-04-22] MEDS: ALBUT/IPRATROP 3MG/0.5MG NEB 3 ML VIAL NEB SCH (13:40)
[2025-04-22] MEDS: HEPARIN SOD 5,000 UNIT/0.5 ML VIAL SQ SCH (13:49)
--- NOTE | 2025-04-22 15:03 | XRay Report ---
XR elbow LT 2V CLINICAL HISTORY: elbow pain COMPARISON: None FINDINGS: There are degenerative changes with moderate joint space narrowing and osteophytosis. Ther e is a chronic calcification anterior to the distal humerus and another posterior to the distal humer us consistent with calcified intra-articular bodies. There is a large joint effusion. No acute fractu re or dislocation seen. IMPRESSION: 1. No fracture seen. 2. Degenerative changes with joint effusion. ACT 112: Negative or not required by law. Electronically signed by: Jesse Hansen M.D. 04/22/2025 3:02 PM
--- NOTE | 2025-04-22 15:06 | XRay Report ---
XR wrist LT min 3V routine, XR hand LT min 3V routine CLINICAL HISTORY: left wrist pain . Left hand pain. COMPARISON: None FINDINGS: There are mild degenerative changes at the left wrist without erosions. No fracture or dis location seen. There are mild scattered degenerative changes at the left hand without erosions. No fracture or dislo cation seen. There is a bone island at the fourth distal phalanx. There is periarticular osteopenia. IMPRESSION: No fracture seen. ACT 112: Negative or not required by law. Electronically signed by: Jesse Hansen M.D. 04/22/2025 3:04 PM
[2025-04-22] MEDS: dexMEDEtomidine 400 MCG/100 ML Bag (Premixed) IV SCH (20:37)
[2025-04-23 04:55] LABS: Anion Gap 9.0 (3-11); Blood Urea Nitrogen 17.0 mg/dl (6-23); Calcium 9.4 mg/dl (8.6-10.3); Carbon Dioxide 39.0 mmol/L (21-32); Chloride 94.0 mmol/L (98-107); Creatinine Clr Calc Pharmacy 814.4 ml/min; Glucose 99.0 mg/dl (70-99(Fasting)); Magnesium 1.9 mg/dl (1.7-2.4); Potassium 3.6 mmol/L (3.5-5.1); Sodium 142.0 mmol/L (136-145)
[2025-04-23] MEDS: POTASSIUM CHLORIDE 20 MEQ/15 ML UDC PO STA (05:19)
[2025-04-23] MEDS: MAGNESIUM SULFATE / D5W 1 GM/100 ML BAG IV SCH (05:19)
[2025-04-23 05:49] LABS: Hematocrit (blood only) 41.1 % (42.0-52.0); Hemoglobin 13.0 g/dl (14.0-18.0); Mean Corpuscular Hemoglobin 30.0 pg (25.0-34.0); Mean Corpuscular Volume 94.0 fL (80.0-100.0); Platelet Count 172 K/uL (130-400); RDW Standard Deviation 45.4 fL (36.4-46.3); Red Blood Count 4.34 M/uL (4.70-6.10); White Blood Count 9.03 K/ul (4.8-10.8)
[2025-04-23] MEDS: FUROSEMIDE 40 MG/4 ML VIAL IV SCH (07:24)
--- NOTE | 2025-04-23 08:18 | XRay Report ---
XR chest 1V portable CLINICAL HISTORY: eval lung parenchyma anticipation for extubation COMPARISON STUDY: Chest radiograph April 22, 2025 at 4:00 AM. FINDINGS: The tip of the endotracheal tube is 5.7 cm above the [place]. Tip of nasogastric tube is bel ow the lower aspect of this image but at least within the distal esophagus. There is no pneumothorax. Small left pleural effusion persists. Dense left basilar opacity persists. Interstitial thickening h as improved. There is residual pulmonary vascular congestion with suspected mild pulmonary edema. Rig ht basilar opacity is unchanged. Cardiomegaly is again noted. IMPRESSION: 1. Satisfactory positioning of the endotracheal tube. 2. Cardiomegaly. Persistent but improved pulmonary edema. 3. Persistent bibasilar opacities which may represent pneumonia or atelectasis. ACT 112: Negative or not required by law. Electronically signed by: Walter Mayen M.D. 04/23/2025 8:16 AM
[2025-04-23 08:23] LABS: Base Excess VBG 15.3 mEq/L; HCO3 VBG 42 mmol/L; Oxygen Saturation VBG 85.3 %; PCO2 VBG 61 mmHg (38-50); PO2 VBG 51 mmHg; pH VBG 7.45 (7.36-7.41)
[2025-04-23] MEDS: acetaZOLAMIDE 500 MG in SYRINGE 0 ML IV ONE (08:59)
--- NOTE | 2025-04-23 10:40 | Critical Care Progress Note ---
Date of Service April 23, 2025 Assessment & Plan (1) Pickwickian syndrome: Plan: Patient reports that he was previously on hospice and had a trilogy NIV which has since been revoked. Prior to his hospitalization he was having cough for several days. His reports that he became unresponsive at home and she called EMS. He was intubated onsite due to presumed hypoxic and hypercapnic respiratory failure. He will ultimately require an NIV long-term to help prevent recurrent respiratory failure events. Case management has been consulted and. Due to chronic hypercapnic respiratory failure consequent to obesity hypoventilation syndrome, the patient now requires a noninvasive home ventilator. Bilevel therapy with and without a rate would be ineffective as patient requires a volume targeted mode. Ventilation is required to decrease work of breathing and improve pulmonary status. Interruption of ventilator support would lead to decline of health status. NIMV settings should be AVAPS-AE; Breath rate: auto; Inspiratory time: auto; Sigh: off; Tidal Volume: 550, pressure support 12-20 EPAP 8-16 AVAPS rate: [14 during sleep and as needed] (2) Acute on chronic respiratory failure with hypoxia and hypercapnia: Plan: Patient was successfully extubated to BiPAP 04/23/2025. Today he is not coughing. He is without leukocytosis or fever. He is currently on ceftriaxone for poss ible UTI and possible bacterial pneumonia. Continue BiPAP and wean as able. Patient with acute on chronic hypercapnia and compensatory metabolic alkalosis. Diamox being given at this time due to elevated serum bicarbonate levels. Will continue this for another day or 2. Monitor respiratory status closely while on Diamox. Improved compliance with PAP therapy will help improve his metabolic al kalosis. (3) CHF (congestive heart failure): Plan: Patient currently being diuresed and likely with underlying diastolic heart failure. Echo 04/22/2025 revealed an EF of 55 to 60%. Mild tricuspid regurgitation. (4) Morbid obesity: Plan: Weight loss encouraged. Consider GLP-1 therapy as an outpatient. (5) Metabolic alkalosis: Plan: Diamox ordered as above. Recheck BMP at 2 PM. (6) SOB (shortness of breath): Plan: Shortness of breath multifactorial related to patient's severe deconditioning, morbid obesity, untreated COPD and pulmonary edema. This appears to be improving. (7) History of tobacco abuse: Plan: Patient has greater than [id number] smoking history. He is eligible for annual low-dose chest CT for lung cancer screening purposes. I am also going to start the patient on a LABA/ICS nebulizer therapy while inpatient and put him on Anne/Hope therapy every 6 hours while inpatient. As an outpatient he can be transition to a long-acting triple maintenance inhaler such as Breztri or Trelegy. He will need outpatient pulmonary follow-up. Plan I spent 50 minutes reviewing the electronic medical record/relevant imaging, 30 minutes discussing diagnosis and treatment plan with patient/family, and 20 minutes discussing care plan with ancillary staff such as RT/RN/pharmacist/temporary receptionist/PT/OT/other consulting medical services. CRITICAL CARE TIME I have personally spent 50 minutes of critical care time in the direct management of this patient. This is a life/limb threatening event. This includes time spent evaluating patient, direct bedside care, chart review, placing orders, interpretation of diagnostic studies, discussion with consultants, patient, and family members, as well as other required patient management activities. This time is exclusive of all separately billable procedures, and teaching time and separate from and in addition to any other critical care service time. Admission and Anticipated Discharge Date Admission Date: April 22, 2025 Subjective Patient seen and examined this morning. He was doing well on SBT and ultimately extubated to BiPAP at a setting of 16/8 and 30% FiO2. I was able to have a conversation with the patient prior to putting him on BiPAP and he indicated that he is denying any shortness of breath or chest pain presently. He has a dry mouth and requesting something to drink. We had a discussion regarding CODE STATUS and the patient at this time is unable to make a decision regarding reintubation. I did indicate to him by default to that he would be reintubated in the event of a respiratory arrest unless he tells us otherwise. Review of Systems Review of Systems: All systems reviewed & are unremarkable except as noted in HPI & below Physical Exam Physical Exam: Physical examination: General: Morbidly obese. No apparent distress. HEENT: Normocephalic, atraumatic. Sclera are nonicteric. Skin: Warm and dry. Areas of psoriasis, most significant in the inguinal areas. Healing wounds on his heels. Cardiovascular: Heart is a regular rate and rhythm, no murmurs appreciated on my exam. Nonpitting edema. Lungs: Coarse mechanical breath sounds bilaterally. On mechanical ventilation with a FiO2 40% and a PEEP of 12. Abdomen: Protuberant, psoriasis appreciated, no bruising appreciated. Musculoskeletal: Able to move all extremities. Neurologic: Alert and oriented x 3. Nonfocal. Results & Data Results & Data Vital Signs (Past 12 Hours) Vital Signs Temp Pulse Pulse Resp BP BP Pulse Ox 04/23/25 10:38 54 L 24 99 04/23/25 10:18 36.8 C 67 22 94/58 L 93 04/23/25 09:01 99/53 L 04/23/25 08:57 36.7 C 54 L 19 97 04/23/25 08:31 52 L 04/23/25 08:09 36.8 C 67 20 96 04/23/25 08:08 67 16 96 04/23/25 07:18 36.9 C 43 L 18 97 04/23/25 07:15 04/23/25 07:15 04/23/25 07:15 36.8 C 45 L 21 109/65 97 04/23/25 05:15 37.1 C 45 L 18 96 04/23/25 05:06 37.1 C 44 L 18 97 04/23/25 05:01 111/63 04/23/25 04:45 37.0 C 44 L 18 96 04/23/25 04:42 37.1 C 44 L 18 96 04/23/25 04:15 37.1 C 51 L 21 96 04/23/25 04:09 37.1 C 47 L 18 96 04/23/25 04:01 105/62 04/23/25 04:00 04/23/25 03:57 37.1 C 44 L 18 96 04/23/25 03:45 37.1 C 46 L 18 96 04/23/25 03:42 37.1 C 46 L 18 96 04/23/25 03:31 99/60 L 04/23/25 03:18 37.1 C 45 L 18 96 04/23/25 03:06 37.2 C 43 L 18 96 04/23/25 03:01 100/59 L 04/23/25 02:54 37.2 C 45 L 18 96 04/23/25 02:51 37.2 C 45 L 18 96 04/23/25 02:31 104/64 04/23/25 02:30 37.2 C 48 L 18 97 04/23/25 02:24 37.2 C 47 L 18 96 04/23/25 02:15 18 04/23/25 02:00 37.2 C 45 L 18 96 04/23/25 01:54 37.2 C 41 L 18 95 04/23/25 01:33 37.2 C 42 L 18 96 04/23/25 01:31 99/58 L 04/23/25 01:18 37.3 C 49 L 18 96 04/23/25 01:03 37.3 C 46 L 18 96 04/23/25 01:01 101/59 L 04/23/25 00:57 37.3 C 47 L 18 96 04/23/25 00:45 37.3 C 49 L 18 96 04/23/25 00:31 98/61 L 04/23/25 00:30 37.3 C 47 L 18 96 04/23/25 00:18 37.3 C 46 L 18 96 04/23/25 00:09 37.3 C 47 L 18 96 04/23/25 00:01 102/63 04/22/25 23:58 04/22/25 23:51 49 L 04/22/25 23:36 37.4 C 47 L 18 97 04/22/25 23:31 98/62 L 04/22/25 23:18 37.4 C 47 L 18 95 04/22/25 23:15 37.4 C 51 L 18 96 04/22/25 23:06 37.4 C 49 L 17 96 04/22/25 23:01 98/60 L 04/22/25 22:45 37.4 C 50 L 18 96 O2 Del Method O2 Flow Rate FiO2 04/23/25 10:38 30 04/23/25 10:18 Oxymask 5 04/23/25 09:01 04/23/25 08:57 04/23/25 08:31 04/23/25 08:09 04/23/25 08:08 04/23/25 07:18 04/23/25 07:15 40 04/23/25 07:15 Mechanical Vent 04/23/25 07:15 Mechanical Vent 40 04/23/25 05:15 04/23/25 05:06 04/23/25 05:01 04/23/25 04:45 04/23/25 04:42 04/23/25 04:15 04/23/25 04:09 04/23/25 04:01 04/23/25 04:00 40 04/23/25 03:57 04/23/25 03:45 04/23/25 03:42 04/23/25 03:31 04/23/25 03:18 04/23/25 03:06 04/23/25 03:01 04/23/25 02:54 04/23/25 02:51 04/23/25 02:31 04/23/25 02:30 04/23/25 02:24 04/23/25 02:15 40 04/23/25 02:00 04/23/25 01:54 04/23/25 01:33 04/23/25 01:31 04/23/25 01:18 04/23/25 01:03 04/23/25 01:01 04/23/25 00:57 04/23/25 00:45 04/23/25 00:31 04/23/25 00:30 04/23/25 00:18 04/23/25 00:09 04/23/25 00:01 04/22/25 23:58 40 04/22/25 23:51 04/22/25 23:36 04/22/25 23:31 04/22/25 23:18 04/22/25 23:15 04/22/25 23:06 04/22/25 23:01 04/22/25 22:45 Coding Level of Care Code 10369 CRITICAL CARE 1ST 30-74M Diagnoses Pickwickian syndrome E66.2 Acute on chronic respiratory failure with hypoxia and hypercapnia J96.21; J96.22 CHF (congestive heart failure) I50.9 Morbid obesity E66.01 Metabolic alkalosis E87.3 SOB (shortness of breath) R06.02 History of tobacco abuse Z87.891
--- NOTE | 2025-04-23 11:45 | Hospitalist Progress Note ---
Date of Service April 23, 2025 Assessment & Plan (1) Acute on chronic respiratory failure with hypoxia and hypercapnia: (2) Obesity hypoventilation syndrome: (3) Restrictive lung disease: (4) Bilateral pulmonary infiltrates: (5) Failure to thrive in adult: (6) Physical deconditioning: Plan 54M with PMH morbid obesity (BMI 50-60), HTN, HFpEF with severe LVH, pulmonary hypertension, OHS/EMELY with treatment non-compliance, chronic mixed respiratory failure on 2L NC O2, psoriasis, severe OA, bedbound status, previously on hospice which was revoked, who was admitted on 04/22 for acute on chronic hypoxic hypercarbic resp failure requiring mechanical intubation #Acute on chronic hypoxic hypercarbic resp failure -Extubated today, placed on bipap -Etiology: not having AVAPS at home (he had AVAPS while on hospice but machine was taken away when hospice was revoked) -CXR showing persistent pulm edema, bibasilar opacities, PNA vs atelectasis -No fever leukocytosis or cough to suggest PNA. would favor atelectasis Plan -Appreciate pulm/ICU input -Continue bipap per pulm -Empirically being treated for PNA with CTX, continue -Wean O2 as tolerated -Pulm to set up with AVAPS on discharge #Hypotension -Remains on levo per ICU team -ICU team does not believe it to be from sepsis -Wean pressors as tolerated per ICU #Acute on chronic HFpEF -TTE 04/22 showing normal EF -Still appears greatly volume overloaded -Continue with IV lasix per ICU team -Monitor renal function, daily weighs, IOs #UTI -UA dirty on admission -Continue CTX. would favor 5 days of abx -Blood and urine cx pending #Super-morbid obesity -Complicates all aspects of his care -He is bedbound and non ambulatory -PT/OT as tolerated -Diet and exercise counseling #Elevated D dimer -D dimer elevated, has been elevated in the past -Dopplers neg for DVT -Unable to fit in CT scanner -He is high risk for DVT given his non ambulatory status -However his CXR findings, his known chronic hypoxia, and his rapid improvement, make PE less likely -Appreciate pulm input -Continue sq heparin #Res acidosis with metabolic alkaosis -S/p acetazolamide yesterday -VBG today with normal pH -BMP in AM #L shoulder pain -Chronic issue for him -Unable to fit in MRI or CT scanner -X ray showing Inferior subluxation of the humeral head, with no evidence of a gross acute fracture. -Can consider ortho evaluation once medically stable -He would obviously be a very poor surgical candidate I spent a total of 70 minutes coordinating, documenting, and providing care for this patient excluding time spent in the performance of separately billed services. This included personally reviewing all current laboratories and imaging studies, medical reconciliation, outpatient chart review and discussion with specialists Admission and Anticipated Discharge Date Admission Date: April 22, 2025 Subjective Seen in ICU with present at bedside. extubated this AM and on bipap. he has no specific complaints. Patient denies F/C, CP, palpitations, SOB, dyspnea, abd pain, N/V/D Physical Exam Physical Exam: Vitals and labs reviewed General: morbidly obese. chronically ill appearing in NAD HEENT: EOMI, PERRLA Neck: Supple Cardiac: RRR no rubs gallops or murmurs Lungs: decreased bs bilaterally. no rales wheez or rhonchi Abd: S NT ND BS positive MSK: Full ROM. No obvious deformities Ext: 2+ b/l LE non pitting Edema cyanosis Skin: Warm, Dry Neuro: AOx3 No focal deficits. Psych: Normal Mood Results & Data Results & Data Vital Signs (Past 12 Hours) Vital Signs Temp Pulse Pulse Resp BP BP Pulse Ox 04/23/25 10:38 54 L 24 99 04/23/25 10:18 36.8 C 67 22 94/58 L 93 04/23/25 09:01 99/53 L 04/23/25 08:57 36.7 C 54 L 19 97 04/23/25 08:31 52 L 04/23/25 08:09 36.8 C 67 20 96 04/23/25 08:08 67 16 96 04/23/25 07:18 36.9 C 43 L 18 97 04/23/25 07:15 04/23/25 07:15 04/23/25 07:15 36.8 C 45 L 21 109/65 97 04/23/25 05:15 37.1 C 45 L 18 96 04/23/25 05:06 37.1 C 44 L 18 97 04/23/25 05:01 111/63 04/23/25 04:45 37.0 C 44 L 18 96 04/23/25 04:42 37.1 C 44 L 18 96 04/23/25 04:15 37.1 C 51 L 21 96 04/23/25 04:09 37.1 C 47 L 18 96 04/23/25 04:01 105/62 04/23/25 04:00 04/23/25 03:57 37.1 C 44 L 18 96 04/23/25 03:45 37.1 C 46 L 18 96 04/23/25 03:42 37.1 C 46 L 18 96 04/23/25 03:31 99/60 L 04/23/25 03:18 37.1 C 45 L 18 96 04/23/25 03:06 37.2 C 43 L 18 96 04/23/25 03:01 100/59 L 04/23/25 02:54 37.2 C 45 L 18 96 04/23/25 02:51 37.2 C 45 L 18 96 04/23/25 02:31 104/64 04/23/25 02:30 37.2 C 48 L 18 97 04/23/25 02:24 37.2 C 47 L 18 96 04/23/25 02:15 18 04/23/25 02:00 37.2 C 45 L 18 96 04/23/25 01:54 37.2 C 41 L 18 95 04/23/25 01:33 37.2 C 42 L 18 96 04/23/25 01:31 99/58 L 04/23/25 01:18 37.3 C 49 L 18 96 04/23/25 01:03 37.3 C 46 L 18 96 04/23/25 01:01 101/59 L 04/23/25 00:57 37.3 C 47 L 18 96 04/23/25 00:45 37.3 C 49 L 18 96 04/23/25 00:31 98/61 L 04/23/25 00:30 37.3 C 47 L 18 96 04/23/25 00:18 37.3 C 46 L 18 96 04/23/25 00:09 37.3 C 47 L 18 96 04/23/25 00:01 102/63 04/22/25 23:58 04/22/25 23:51 49 L 04/22/25 23:36 37.4 C 47 L 18 97 04/22/25 23:31 98/62 L O2 Del Method O2 Flow Rate FiO2 04/23/25 10:38 30 04/23/25 10:18 Oxymask 5 04/23/25 09:01 04/23/25 08:57 04/23/25 08:31 04/23/25 08:09 04/23/25 08:08 04/23/25 07:18 04/23/25 07:15 40 04/23/25 07:15 Mechanical Vent 04/23/25 07:15 Mechanical Vent 40 04/23/25 05:15 04/23/25 05:06 04/23/25 05:01 04/23/25 04:45 04/23/25 04:42 04/23/25 04:15 04/23/25 04:09 04/23/25 04:01 04/23/25 04:00 40 04/23/25 03:57 04/23/25 03:45 04/23/25 03:42 04/23/25 03:31 04/23/25 03:18 04/23/25 03:06 04/23/25 03:01 04/23/25 02:54 04/23/25 02:51 04/23/25 02:31 04/23/25 02:30 04/23/25 02:24 04/23/25 02:15 40 04/23/25 02:00 04/23/25 01:54 04/23/25 01:33 04/23/25 01:31 04/23/25 01:18 04/23/25 01:03 04/23/25 01:01 04/23/25 00:57 04/23/25 00:45 04/23/25 00:31 04/23/25 00:30 04/23/25 00:18 04/23/25 00:09 04/23/25 00:01 04/22/25 23:58 40 04/22/25 23:51 04/22/25 23:36 04/22/25 23:31 Laboratory Results Abnormal lab results 04/23/25 04/23/25 Range/Units 04:04 08:18 RBC 4.34 L (4.70-6.10) M/uL Hgb 13.0 L (14.0-18.0) g/dl Hct 41.1 L (42.0-52.0) % MCHC 31.6 L (32.0-36.0) g/dL VBG pH 7.45 H (7.36-7.41) VBG pCO2 61 H (38-50) mmHg Chloride 94 L (98-107) mmol/L Carbon Dioxide 39 H (21-32) mmol/L Creatinine 0.20 L (0.6-1.4) mg/dl BUN/Creatinine Ratio 85.0 H (10-20) Diagnostic Findings Chest X-Ray 04/23/25 07:51 XR chest 1V portable CLINICAL HISTORY: eval lung parenchyma anticipation for extubation COMPARISON STUDY: Chest radiograph April 22, 2025 at 4:00 AM. FINDINGS: The tip of the endotracheal tube is 5.7 cm above the [place]. Tip of nasogastric tube is below the lower aspect of this image but at least within the distal esophagus. There is no pneumothorax. Small left pleural effusion persists. Dense left basilar opacity persists. Interstitial thickening has improved. There is residual pulmonary vascular congestion with suspected mild pulmonary edema. Right basilar opacity is unchanged. Cardiomegaly is again noted. IMPRESSION: 1. Satisfactory positioning of the endotracheal tube. 2. Cardiomegaly. Persistent but improved pulmonary edema. 3. Persistent bibasilar opacities which may represent pneumonia or atelectasis. ACT 112: Negative or not required by law. Electronically signed by: Walter Mayen M.D. 04/23/2025 8:16 AM
[2025-04-23] MEDS: INSULIN ASPART PER UNIT CHARGE SC SCH ×2 (12:28→16:53)
[2025-04-23] MEDS ORDERED: ALBUT/IPRATROP 3MG/0.5MG NEB 3 ML VIAL INH SCH (13:00)
[2025-04-23] MEDS: CHLORASEPTIC (PHENOL) 1.4% SOLN 180 ML BTL MT PRN (13:23)
--- NOTE | 2025-04-23 13:54 | Palliative Care Consultation ---
Date of Consultation April 23, 2025 Assessment & Plan (1) Palliative care by specialist: met with pt and his at bedside. Introduced Palliative Medicine and explained our role in advanced care planning, symptom management and navigation through the progression of life limiting dis ease. Patient and/or family were receptive to palliative services for goals of care discussions. Reviewed we are different from hospice, a home health nurse visiting service. (2) Counseling regarding goals of care: Met with pt and his at bedside in ICU. We did discuss possibility of reintubation and pt is in favor of intubation if needed, but does not wish to be on ventilator fci, nor would he accept a tracheostomy. Pt's shared that she is hopeful that he can be weaned off bipap and return home with Bipap as needed for sleep as he had previously. She shared that the machine they had at home does not have the same settings as he is on here and he did not use it because it did not help. She shared that they have had negative experiences with SNF/IPR and plan for discharge will be to return home. She shared that they have "3 chiropractors and a massage therapist that see him every day at home". She shared concern that the patient sustained an injury to his shoulder while at rehab and it was not attended to due to staffing issues. they are having it treated by the chiropractors at home prior to this admission. She shared desire to have pt discharged directly to their home, but stated they will need DME and PT/OT to treat him as outpt. pt had recently been extubated and was on Bipap. He stated that he wishes to discuss GOC, but not while on mask. He requests that I return after he has been weaned off Bipap. Plan made to meet with pt and his tomorrow at 13:00 for more in depth GOC discussion. Plan planned ACP/GOC meeting with pt and for 13:00 on 04/24/25 History of Present Illness Reason for Consultation: goals of care Requesting Physician: Fercho Babcock DO Attending Physician: Fercho Babcock DO History of Present Illness Mr. Landon Godinez is a 54YOM with a history of morbid obesity (BMI 50-60), HTN, HFpEF with severe LVH, pulmonary hypertension, OHS/EMELY with treatment non- compliance, chronic mixed respiratory failure on 2L NC O2, psoriasis, severe OA, bedbound status who presented to [facility] ED from home in the errand runner of 04/22/2025. EMS summoned to patient's residence due to sudden unresponsiveness. On EMS arrival, patient's SpO2 was in the 50s. He was emergently intubated without incident, initial EtCO2 99. He received naloxone due to pinpoint pupils and became agitated requiring midazolam en route. SpO2 low 80s per EMS. PEEP increased to 10 on arrival to ED with significant improvement in oxygenation. A CXR revealed bilateral opacities/infiltrates concerning for inflammation or pulmonary edema with L pleural effusion. CTPE attempted but patient too large to go through our CT scanner. CTH was able to be performed which was WNL. Received 500cc IVF bolus. Initial ABG 7.31/80/136/40. Labs revealed hyperglycemia. UA +. UDS negative. RVP negative. Pt admitted to ICU with VDRF. Allergies Allergy/AdvReac Type Severity Reaction Status Date / Time latex Allergy Severe Rash Unverified 04/22/25 17:47 zinc Allergy Rash Verified 04/22/25 17:47 Home Medications Medication Instructions Recorded Confirmed Type magnesium oxide 400 mg (241.3 mg 400 mg PO AMPM #60 tabs 04/21/24 04/22/25 Rx magnesium) tablet metoprolol tartrate 25 mg tablet 25 mg PO AMPM #60 tabs 04/21/24 04/22/25 Rx acetaminophen 500 mg tablet 500 mg PO Q6H PRN Pain 04/22/25 04/22/25 History amlodipine 5 mg tablet 5 mg PO QAM 04/22/25 04/22/25 History aspirin 81 mg tablet,delayed 81 mg PO QPM 04/22/25 04/22/25 History release vwkvepc-hnyeumsbkuavb-qgrjqrwo 250 1 tab PO Q6H PRN Migraine Headache 04/22/25 04/22/25 History mg-250 mg-65 mg tablet (Excedrin Migraine) furosemide 80 mg tablet 80 mg PO DAILY PRN Swelling 04/22/25 04/22/25 History ibuprofen 200 mg capsule (Advil 200 mg PO Q6H PRN Migraine Headache 04/22/25 04/22/25 History Migraine) multivitamin 1 tab PO DAILY 04/22/25 04/22/25 History potassium chloride 10 mEq 20 meq PO DAILY PRN If taking Lasix 04/22/25 04/22/25 History tablet,extended release(part/cryst) Patient History Medical History Respiratory failure requiring intubation Prediabetes Candidiasis of mouth and esophagus AV block Benign essential hypertension Tinea cruris Psoriasis Pickwickian syndrome Cellulitis of leg, right Morbid obesity with BMI of 60.0-69.9, adult Surgical History History of appendectomy History of cholecystectomy Social History Smoking Status: Former smoker Tobacco Type: Cigarettes Cigarettes Per Day: pack per day; Second Hand Exposure: No; Do You Dip or Chew Tobacco: No; Hx Alcohol Use: No Hx Substance Use: No Preferred Language: Eritrean Communication Ability: Effective Wood Craftsman Required: No Beliefs That Will Affect Care: None Current Living Situation: Spouse Feels Safe at Home: Yes Assistive Devices: Hospital Bed and Oxygen - Continuous Review of Systems Review of Systems: All systems reviewed & are unremarkable except as noted in HPI & below Physical Exam Constitutional: + morbidly obese, + frail appearing, 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 Cardiovascular: Rate/Rhythm: regular rate and regular rhythm Heart Sounds: + murmur Vessels: no JVD and no carotid bruit Extremities: normal capillary refill and + edema Gastrointestinal (Abdomen): Inspection/Auscultation: abdomen normal to inspection, normal bowel sounds and + significant pannus Percussion/Palpation: abdomen soft; abdomen nontender, no guarding and abdomen not rigid Musculoskeletal: Head/Neck/Chest: normocephalic and head atraumatic Extremities: + limited ROM of extremities and + muscle atrophy mild foot drop bilaterally, wrist drop Skin: normal turgor, + lesion, + crusts, + dry skin and + lichenification Neurologic: awake; no focal motor deficits Cranial Nerves: PERRL Genitourinary: Perez in place draining dark urine Results & Data Vital Signs (Past 12 Hours) Vital Signs Temp Pulse Pulse Resp BP BP Pulse Ox 04/23/25 12:54 67 18 95 04/23/25 12:30 36.9 C 55 L 19 102/65 93 04/23/25 12:01 99/65 L 04/23/25 11:32 94/69 L 04/23/25 10:57 36.6 C 53 L 20 97/59 L 99 04/23/25 10:38 54 L 24 99 04/23/25 10:27 36.6 C 53 L 20 99/58 L 100 04/23/25 10:18 36.8 C 67 22 94/58 L 93 04/23/25 10:00 36.6 C 55 L 15 94/58 L 98 04/23/25 09:32 101/63 04/23/25 09:01 99/53 L 04/23/25 08:57 36.7 C 54 L 19 97 04/23/25 08:31 52 L 04/23/25 08:09 36.8 C 67 20 96 04/23/25 08:08 67 16 96 04/23/25 07:18 36.9 C 43 L 18 97 04/23/25 07:15 04/23/25 07:15 04/23/25 07:15 36.8 C 45 L 21 109/65 97 04/23/25 05:15 37.1 C 45 L 18 96 04/23/25 05:06 37.1 C 44 L 18 97 04/23/25 05:01 111/63 04/23/25 04:45 37.0 C 44 L 18 96 04/23/25 04:42 37.1 C 44 L 18 96 04/23/25 04:15 37.1 C 51 L 21 96 04/23/25 04:09 37.1 C 47 L 18 96 04/23/25 04:01 105/62 04/23/25 04:00 04/23/25 03:57 37.1 C 44 L 18 96 04/23/25 03:45 37.1 C 46 L 18 96 04/23/25 03:42 37.1 C 46 L 18 96 04/23/25 03:31 99/60 L 04/23/25 03:18 37.1 C 45 L 18 96 04/23/25 03:06 37.2 C 43 L 18 96 04/23/25 03:01 100/59 L 04/23/25 02:54 37.2 C 45 L 18 96 04/23/25 02:51 37.2 C 45 L 18 96 04/23/25 02:31 104/64 04/23/25 02:30 37.2 C 48 L 18 97 04/23/25 02:24 37.2 C 47 L 18 96 04/23/25 02:15 18 04/23/25 02:00 37.2 C 45 L 18 96 04/23/25 01:54 37.2 C 41 L 18 95 O2 Del Method O2 Flow Rate FiO2 04/23/25 12:54 Nasal Cannula 4 04/23/25 12:30 04/23/25 12:01 04/23/25 11:32 04/23/25 10:57 04/23/25 10:38 30 04/23/25 10:27 04/23/25 10:18 Oxymask 5 04/23/25 10:00 04/23/25 09:32 04/23/25 09:01 04/23/25 08:57 04/23/25 08:31 04/23/25 08:09 04/23/25 08:08 04/23/25 07:18 04/23/25 07:15 40 04/23/25 07:15 Mechanical Vent 04/23/25 07:15 Mechanical Vent 40 04/23/25 05:15 04/23/25 05:06 04/23/25 05:01 04/23/25 04:45 04/23/25 04:42 04/23/25 04:15 04/23/25 04:09 04/23/25 04:01 04/23/25 04:00 40 04/23/25 03:57 04/23/25 03:45 04/23/25 03:42 04/23/25 03:31 04/23/25 03:18 04/23/25 03:06 04/23/25 03:01 04/23/25 02:54 04/23/25 02:51 04/23/25 02:31 04/23/25 02:30 04/23/25 02:24 04/23/25 02:15 40 04/23/25 02:00 04/23/25 01:54 Laboratory Results Abnormal lab results 04/23/25 04/23/25 04/23/25 Range/Units 04:04 08:18 12:25 RBC 4.34 L (4.70-6.10) M/uL Hgb 13.0 L (14.0-18.0) g/dl Hct 41.1 L (42.0-52.0) % MCHC 31.6 L (32.0-36.0) g/dL VBG pH 7.45 H (7.36-7.41) VBG pCO2 61 H (38-50) mmHg Chloride 94 L (98-107) mmol/L Carbon Dioxide 39 H (21-32) mmol/L Creatinine 0.20 L (0.6-1.4) mg/dl BUN/Creatinine Ratio 85.0 H (10-20) POC Glucose 69 L* (70-99) mg/dl Diagnostic Findings Head CT 04/22/25 02:21 EXAM: CT head/brain wo con CLINICAL HISTORY: Severe headache. TECHNIQUE: Axial non-contrast CT scan of the brain was performed from the skull base to the high parietal region. One of the following dose reduction techniques were utilized for this exam: Automated exposure control, adjustment of the mA and/or kV according to patient size, use of iterative reconstruction. COMPARISON: None available. FINDINGS: Brain Parenchyma: Normal attenuation of the cerebral hemispheres, cerebellum, and brainstem. No evidence of acute infarct, hemorrhage, or mass effect. No abnormal areas of hypo- or hyperattenuation. Ventricular System: Ventricles are normal in size and configuration. No evidence of hydrocephalus or ventricular enlargement. Subarachnoid Spaces: Normal sulci and cisterns. No evidence of subarachnoid hemorrhage or extra-axial fluid collections. Cerebellum and Brainstem: No masses, lesions, or areas of abnormal density. Orbits: Normal appearance of the globes, optic nerves, and extraocular muscles. No evidence of orbital masses or abnormal density. Sinuses: Clear paranasal sinuses. No evidence of sinusitis or mucosal thickening. Mastoid Air Cells: Clear mastoid air cells. No evidence of mastoiditis. Skull: Normal skull morphology. IMPRESSION: No acute intra-cranial pathology. Electronically signed by Ridge Avalos 04-22-2025 04:06 AM Venous Doppler Study 04/22/25 03:37 EXAM: US venous doppler LE BI CLINICAL HISTORY: Rule out DVT. TECHNIQUE: Ultrasound examination of bilateral lower extremity veins was performed in real time and duplex. One or more of the following were performed- spectral analysis, resistive index, waveform analysis, and pulsed Doppler. COMPARISON: 03/05/2024, Venous doppler. FINDINGS: Normal phasic, non-pulsatile, and spontaneous flow is noted in the bilateral visualized greater saphenous, common femoral, superficial femoral, and popliteal veins. Normal color flow noted in profunda femoris, anterior tibial, posterior tibial, and peroneal veins; however, compression and augmentation images of these veins are not available. The other visualized veins of both lower extremities demonstrate normal compressibility. No sonographic evidence of acute deep vein thrombosis (DVT) is detected in the visualized veins of both lower extremities. Compression and Augmentation: All visualized evaluated veins compress fully with the applied transducer pressure. Augmentation of venous flow is noted with distal compression. Additional Findings: No evidence of intraluminal thrombus. Possible minimal soft tissue edema in both lower limbs. IMPRESSION: 1. No sonographic evidence of acute DVT was detected in bilateral common femoral, superficial femoral, popliteal, anterior tibial, posterior tibial, and peroneal veins at the time of examination. 2. Possible minimal soft tissue edema in both lower limbs; however, it was more conspicuous in the prior examination. Disclaimer: DVT could be missed early in the disease when the clot burden is minimal. For patients with moderate and high pretest probability of DVT and negative ultrasound, the [employer] clinical guidelines recommend testing with a D-dimer assay or repeat ultrasound in 5-7 days. If symptoms worsen, the Society of Radiologists in Ultrasound recommends repeating the ultrasound even earlier. Electronically signed by Ridge Avalos 04-22-2025 06:15 AM Shoulder X-Ray 04/22/25 04:09 EXAM: XR shoulder LT min 2V routine CLINICAL HISTORY: Dislocated shoulder TECHNIQUE: X-ray images of the left shoulder were obtained in anteroposterior (AP) and Y-view projections. COMPARISON: No prior studies available for comparison. FINDINGS: Bone Structure: Abnormal anteroinferior subluxation of the humeral head is noted. Cortical irregularity is noted along humeral shaft - correlate with old history of trauma. The remaining bone structure is normal and aligned. No evidence of fracture is seen. No osseous lesions or other abnormalities are identified. Joint Spaces: There is widening of the glenohumeral and subacromial spaces. The acromioclavicular joint space is normal. Soft Tissues: The soft tissues appear normal and unremarkable. No soft tissue swelling, calcifications, or foreign bodies are noted. Additional Findings: No signs of osteoarthritis, bone spurs, or lytic or sclerotic lesions are present. Limited image of left lung shows perihilar veiling/opacities - repeat X-ray for chest if clinically indicated. IMPRESSION: Inferior subluxation of the humeral head, with no evidence of a gross acute fracture. Disclaimer: A subtle bone abnormality or fracture may not be readily apparent on X-rays, thus clinical correlation and further imaging including follow-up CT, MRI, or follow-up X-rays are advised as needed. Electronically signed by Ridge Avalos 04-22-2025 08:25 AM Elbow X-Ray 04/22/25 12:44 XR elbow LT 2V CLINICAL HISTORY: elbow pain COMPARISON: None FINDINGS: There are degenerative changes with moderate joint space narrowing and osteophytosis. There is a chronic calcification anterior to the distal humerus and another posterior to the distal humerus consistent with calcified intra-articular bodies. There is a large joint effusion. No acute fracture or dislocation seen. IMPRESSION: 1. No fracture seen. 2. Degenerative changes with joint effusion. ACT 112: Negative or not required by law. Electronically signed by: Jesse Hansen M.D. 04/22/2025 3:02 PM Hand X-Ray 04/22/25 12:44 XR wrist LT min 3V routine, XR hand LT min 3V routine CLINICAL HISTORY: left wrist pain . Left hand pain. COMPARISON: None FINDINGS: There are mild degenerative changes at the left wrist without erosions. No fracture or dislocation seen. There are mild scattered degenerative changes at the left hand without erosions. No fracture or dislocation seen. There is a bone island at the fourth distal phalanx. There is periarticular osteopenia. IMPRESSION: No fracture seen. ACT 112: Negative or not required by law. Electronically signed by: Jesse Hansen M.D. 04/22/2025 3:04 PM Wrist X-Ray 04/22/25 12:44 XR wrist LT min 3V routine, XR hand LT min 3V routine CLINICAL HISTORY: left wrist pain . Left hand pain. COMPARISON: None FINDINGS: There are mild degenerative changes at the left wrist without erosions. No fracture or dislocation seen. There are mild scattered degenerative changes at the left hand without erosions. No fracture or dislocation seen. There is a bone island at the fourth distal phalanx. There is periarticular osteopenia. IMPRESSION: No fracture seen. ACT 112: Negative or not required by law. Electronically signed by: Jesse Hansen M.D. 04/22/2025 3:04 PM Chest X-Ray 04/23/25 07:51 XR chest 1V portable CLINICAL HISTORY: eval lung parenchyma anticipation for extubation COMPARISON STUDY: Chest radiograph April 22, 2025 at 4:00 AM. FINDINGS: The tip of the endotracheal tube is 5.7 cm above the [place]. Tip of nasogastric tube is below the lower aspect of this image but at least within the distal esophagus. There is no pneumothorax. Small left pleural effusion persists. Dense left basilar opacity persists. Interstitial thickening has improved. There is residual pulmonary vascular congestion with suspected mild pulmonary edema. Right basilar opacity is unchanged. Cardiomegaly is again noted. IMPRESSION: 1. Satisfactory positioning of the endotracheal tube. 2. Cardiomegaly. Persistent but improved pulmonary edema. 3. Persistent bibasilar opacities which may represent pneumonia or atelectasis. ACT 112: Negative or not required by law. Electronically signed by: Walter Mayen M.D. 04/23/2025 8:16 AM Medications Administered Current Inpatient Medications Acetaminophen (Acetaminophen 325 Mg Tab) 650 mg PO Q4H PRN PRN Reason: Pain or Fever Stop: 05/22/25 06:36 Albuterol (Albut/Ipratrop 3mg/0.5mg Neb 3 Ml Vial) 3 ml NEB Q6R KIM; Protocol Stop: 05/22/25 12:59 Last Admin: 04/23/25 12:54 Dose: 3 ml Budesonide (Budesonide 0.5 Mg/2 Ml Vial (Pulmicort)) 0.5 mg NEB BIDR KIM Stop: 05/23/25 18:59 Dextrose (Dextrose 50% 50 Ml Syringe) 25 - 50 ml IV UD PRN; Protocol PRN Reason: Hypoglycemia Protocol Stop: 05/22/25 06:36 Docusate Sodium (Docusate Sodium 100 Mg Cap) 100 mg PO BID PRN PRN Reason: Constipation Stop: 05/22/25 06:36 Formoterol Fumarate (Formoterol 20 Mcg/2 Ml Vial) 20 mcg NEB BIDR [facility] Stop: 05/23/25 18:59 Furosemide (Furosemide 40 Mg/4 Ml Vial) 60 mg IV Q12H KIM Stop: 05/23/25 06:59 Last Admin: 04/23/25 07:24 Dose: 60 mg Glucagon (Glucagon For Inj 1 Mg Vial) 1 mg SQ UD PRN; Protocol PRN Reason: Hypoglycemia Protocol Stop: 05/22/25 06:36 Glucose (Glucose 40% Gel 15 Gm Tube) 15 - 30 gm PO UD PRN; Protocol PRN Reason: Hypoglycemia Protocol Stop: 05/22/25 06:36 Glucose (Glucose 10 Tab/Tube) 4 - 8 tab PO UD PRN; Protocol PRN Reason: Hypoglycemia Protocol Stop: 05/22/25 06:36 Heparin Sodium (Porcine) (Heparin Sod 5,000 Unit/0.5 Ml Vial) 7,500 units SQ Q8 KIM Stop: 05/22/25 13:59 Last Admin: 04/23/25 13:31 Dose: 7,500 units Norepinephrine Bitartrate (Levophed/D5w) 4 mg in 250 mls @ 0 mls/hr IV .Q0M [facility]; Protocol Stop: 05/22/25 04:14 Last Admin: 04/22/25 21:57 Dose: Not Given Ceftriaxone Sodium (Rocephin) 2,000 mg in 50 mls @ 100 mls/hr IV Q24H [facility] Stop: 04/27/25 06:44 Last Infusion: 04/23/25 08:14 Dose: Infused Pantoprazole Sodium (Protonix) 40 mg in 10 mls @ 5 mls/min IV QPM KIM Stop: 05/22/25 20:59 Last Admin: 04/22/25 21:21 Dose: 5 mls/min Insulin Aspart (Insulin Aspart Per Unit Charge) 0 units SC Q6 KIM Stop: 05/23/25 11:59 Last Admin: 04/23/25 12:28 Dose: Not Given Miscellaneous (Carbohydrates For Hypoglycemia ) 15 - 30 gm PO UD PRN PRN Reason: Hypoglycemia Protocol Stop: 05/22/25 06:36 Miscellaneous Information (Pharmacy Glycemic Mgmt Consult) 1 each N/A UD PRN PRN Reason: Consult Stop: 05/22/25 06:36 Ondansetron HCl (Ondansetron Inj 2 Mg/Ml 2 Ml Vial) 4 mg IV Q6H PRN PRN Reason: Nausea And Vomiting Stop: 05/22/25 06:36 Phenol (Chloraseptic (Phenol) 1.4% Soln 180 Ml Btl) 2 sprays MT Q4H PRN PRN Reason: Sore Throat Stop: 05/23/25 12:58 Last Admin: 04/23/25 13:23 Dose: 2 sprays PG Care Time/CCT Total # of Minutes Spent Total Time Spent with Patient: Total time spent is greater than 50% in coordination of care (as documented) at patient's floor/unit and/or counseling patient: [place] [address] IN/OBS CONSULT LVL 4,60M Patient Type New History Expanded Problem Focused Exam Expanded Problem Focused Medical Decision Making Moderate Complexity Diagnoses Palliative care by specialist Z51.5 Counseling regarding goals of care Z71.89
[2025-04-23] MEDS ORDERED: Nursing to Pharmacy Communication SCH (14:15)
[2025-04-23 14:39] LABS: Anion Gap 6.0 (3-11); Blood Urea Nitrogen 13.0 mg/dl (6-23); Calcium 8.0 mg/dl (8.6-10.3); Carbon Dioxide 36.0 mmol/L (21-32); Chloride 101.0 mmol/L (98-107); Creatinine Clr Calc Pharmacy 619.4 ml/min; Glucose 83.0 mg/dl (70-99(Fasting)); Potassium 3.0 mmol/L (3.5-5.1); Sodium 143.0 mmol/L (136-145)
[2025-04-23] MEDS: FORMOTEROL 20 MCG/2 ML VIAL NEB SCH (20:11)
[2025-04-23] MEDS: BUDESONIDE 0.5 MG/2 ML VIAL (PULMICORT) NEB SCH (20:11)
[2025-04-23] MEDS: MELATONIN 3 MG TAB PO PRN (23:37)
[2025-04-23] MEDS: POTASSIUM CHLORIDE CRTAB 20 MEQ TABCR PO STA (23:37)
[2025-04-24] MEDS: POTASSIUM CHLORIDE CRTAB 20 MEQ TABCR PO ONE (01:00)
[2025-04-24 05:17] LABS: Hematocrit (blood only) 41.2 % (42.0-52.0); Hemoglobin 13.0 g/dl (14.0-18.0); Immature Granulocytes # (auto) 0.09 K/uL (0.01-0.20); Immature Granulocytes % (auto) 1.1 %; Mean Corpuscular Hemoglobin 29.5 pg (25.0-34.0); Mean Corpuscular Volume 93.6 fL (80.0-100.0); Platelet Count 169 K/uL (130-400); RDW Standard Deviation 46.0 fL (36.4-46.3); Red Blood Count 4.40 M/uL (4.70-6.10); White Blood Count 8.40 K/ul (4.8-10.8)
[2025-04-24 05:32] LABS: Anion Gap 7.0 (3-11); Blood Urea Nitrogen 12.0 mg/dl (6-23); Calcium 9.1 mg/dl (8.6-10.3); Carbon Dioxide 33.0 mmol/L (21-32); Chloride 100.0 mmol/L (98-107); Creatinine Clr Calc Pharmacy 619.4 ml/min; Glucose 101.0 mg/dl (70-99(Fasting)); Potassium 3.6 mmol/L (3.5-5.1); Sodium 140.0 mmol/L (136-145)
[2025-04-24] MEDS: POTASSIUM CHLORIDE CRTAB 20 MEQ TABCR PO SCH (08:15)
--- NOTE | 2025-04-24 11:53 | Pulmonology Progress Note ---
Date of Service April 24, 2025 Assessment & Plan (1) Pickwickian syndrome: Plan: Patient reports that he was previously on hospice and had a trilogy NIV which has since been revoked. Prior to his hospitalization he was having cough for several days. His reports that he became unresponsive at home and she called EMS. He was intubated onsite due to presumed hypoxic and hypercapnic respiratory failure. He will ultimately require an NIV long-term to help prevent recurrent respiratory failure events. Case management has been consulted and. Due to chronic hypercapnic respiratory failure consequent to obesity hypoventilation syndrome, the patient now requires a noninvasive home ventilator. Bilevel therapy with and without a rate would be ineffective as patient requires a volume targeted mode. Ventilation is required to decrease work of breathing and improve pulmonary status. Interruption of ventilator support would lead to decline of health status. NIMV settings should be AVAPS-AE; Breath rate: auto; Inspiratory time: auto; Sigh: off; Tidal Volume: 550, pressure support 12-20 EPAP 8-16 AVAPS rate: [14 during sleep and as needed] (2) Acute on chronic respiratory failure with hypoxia and hypercapnia: Plan: Patient was successfully extubated to BiPAP 04/23/2025. Today he is not coughing. He is without leukocytosis or fever. He is currently on ceftriaxone for possible UTI and possible bacterial pneumonia. Continue BiPAP and wean as able. Patient with acute on chronic hypercapnia and compensatory metabolic alkalosis. Improved compliance with PAP therapy will help improve his metabolic alkalosis. Patient has been wearing BiPAP overnight and tolerating well. He feels he is gaining clinical benefit from it patient will be at high risk for deterioration with out the continued use of positive pressure ventilation and would be at increased risk of readmission. (3) CHF (congestive heart failure): Plan: Patient currently being diuresed and likely with underlying diastolic heart failure. Echo 04/22/2025 revealed an EF of 55 to 60%. Mild tricuspid regurgitation. (4) Morbid obesity: Plan: Weight loss encouraged. Consider GLP-1 therapy as an outpatient. (5) Metabolic alkalosis: Plan: Diamox ordered as above. Recheck BMP at 2 PM. (6) SOB (shortness of breath): Plan: Shortness of breath multifactorial related to patient's severe deconditioning, morbid obesity, untreated COPD and pulmonary edema. This appears to be improving. (7) History of tobacco abuse: Plan: Patient has greater than 11-[id number]-[id number] smoking history. He is eligible for annual low-dose chest CT for lung cancer screening purposes. I am also going to start the patient on a LABA/ICS nebulizer therapy while inpatient and put him on Anne/Hope therapy every 6 hours while inpatient. As an outpatient he can be transition to a long-acting triple maintenance inhaler such as Breztri or Trelegy. He will need outpatient pulmonary follow-up. Plan 38 minutes is the time spent reviewing the chart, obtaining history, performing the physical exam, and updating the patient and bedside nurse. Admission and Anticipated Discharge Date Admission Date: April 22, 2025 Subjective Patient extubated on 04/23/25. Patient wore his bipap mask overnight and tolerated well. No complaints this am. Patient will likely need BiPAP or AVAPs upon discharge. Review of Systems 2 Review of Systems: All systems reviewed & are unremarkable except as noted in HPI & below Physical Exam 2 Physical Exam: VITALS: Reviewed. WEIGHT/BMI reviewed. GEN: Obese, Well-developed, NAD. PSYCH: Good Judgment. AOx3. Normal memory, mood, and affect. HEENT -Head: NC/AT; -Eyes: PERRL, EOMI. No discharge or redn ess; -Ears: External ears are normal. -Nose: Normal nares. NECK: Supple, with no masses. CV: RRR, no m/r/g. LUNGS: Clear in b/l upper lobes. Diminished in b/l bases. Chest rise symmetrical. Breathing nonlabored. ABD: Soft, NT/ND, NBS, no masses or organomegaly. : N/A SKIN: Warm, well perfused. No skin rashes or abnormal lesions. MSK: No deformities, Normal gait. EXT: No clubbing, cyanosis, or edema. NEURO: generalize weakness and normal tone. No focal deficits. Results & Data Results & Data Vital Signs (Past 12 Hours) Vital Signs Temp Pulse Pulse Resp BP BP Pulse Ox 04/24/25 11:00 36.9 C 85 22 131/79 98 04/24/25 09:05 37.2 C 94 H 24 79 L 04/24/25 08:18 37.3 C 90 18 94 04/24/25 08:00 04/24/25 08:00 04/24/25 08:00 78 04/24/25 07:44 96 H 16 93 04/24/25 07:00 37.3 C 87 22 121/79 94 04/24/25 07:00 36.9 C 04/24/25 03:00 37.5 C 85 18 121/79 95 04/24/25 01:42 78 24 95 04/24/25 01:41 78 24 95 04/24/25 00:00 83 Pulse Ox O2 Del Method O2 Del Method O2 Flow Rate O2 Flow Rate FiO2 04/24/25 11:00 Room Air 04/24/25 09:05 04/24/25 08:18 04/24/25 08:00 Nasal Cannula 3 04/24/25 08:00 95 Nasal Cannula 3 04/24/25 08:00 04/24/25 07:44 Nasal Cannula 3 04/24/25 07:00 04/24/25 07:00 04/24/25 03:00 BiPAP 30 04/24/25 01:42 30 04/24/25 01:41 BiPAP 30 04/24/25 00:00 Laboratory Results 04/24/25 05:01 04/24/25 05:01 Abnormal Lab Results 04/23/25 04/23/25 04/23/25 12:25 12:27 14:00 WBC RBC Hgb Hct MCV MCH MCHC RDW Std Deviation RDW Coeff of Nelson Plt Count MPV Immature Gran % (Auto) Neut % (Auto) Lymph % (Auto) [place] % (Auto) Eos % (Auto) Baso % (Auto) Neut # (Auto) Lymph # (Auto) [place] # (Auto) Eos # (Auto) Baso # (Auto) Immature Gran # (Auto) Sodium 143 Potassium 3.0 L Chloride 101 Carbon Dioxide 36 H Anion Gap 6 BUN 13 Creatinine 0.26 L Est Cr Clr Drug Dosing 619.4 eGFR 148.59 BUN/Creatinine Ratio 50.0 H Glucose 83 POC Glucose 69 L* 80 Lactate 1.5 Calcium 8.0 L 04/23/25 04/23/25 04/24/25 16:13 19:31 05:01 WBC 8.40 RBC 4.40 L Hgb 13.0 L Hct 41.2 L MCV 93.6 MCH 29.5 MCHC 31.6 L RDW Std Deviation 46.0 RDW Coeff of Nelson 13.7 Plt Count 169 MPV 9.0 L Immature Gran % (Auto) 1.1 Neut % (Auto) 59.8 Lymph % (Auto) 26.3 [place] % (Auto) 10.5 Eos % (Auto) 1.9 Baso % (Auto) 0.4 Neut # (Auto) 5.03 Lymph # (Auto) 2.21 [place] # (Auto) 0.88 H Eos # (Auto) 0.16 Baso # (Auto) 0.03 Immature Gran # (Auto) 0.09 Sodium 140 Potassium 3.6 Chloride 100 Carbon Dioxide 33 H Anion Gap 7 BUN 12 Creatinine 0.26 L Est Cr Clr Drug Dosing 619.4 eGFR 148.59 BUN/Creatinine Ratio 46.2 H Glucose 101 H POC Glucose 80 86 Lactate Calcium 9.1 04/24/25 04/24/25 07:22 10:50 WBC RBC Hgb Hct MCV MCH MCHC RDW Std Deviation RDW Coeff of Nelson Plt Count MPV Immature Gran % (Auto) Neut % (Auto) Lymph % (Auto) [place] % (Auto) Eos % (Auto) Baso % (Auto) Neut # (Auto) Lymph # (Auto) [place] # (Auto) Eos # (Auto) Baso # (Auto) Immature Gran # (Auto) Sodium Potassium Chloride Carbon Dioxide Anion Gap BUN Creatinine Est Cr Clr Drug Dosing eGFR BUN/Creatinine Ratio Glucose POC Glucose 89 88 Lactate Calcium Diagnostic Findings Chest X-Ray 04/22/25 02:00 EXAM: XR chest 1V portable CLINICAL HISTORY: Dyspnea TECHNIQUE: An X-ray image of the chest is obtained in AP projection. COMPARISON: Prior XR 03/09/2024 FINDINGS: Pulmonary Parenchyma: The left lower lung zone and left costodiaphragmatic recess are out of the field. The scanned field shows progressive bilateral pulmonary opacities/infiltrates that could be inflammatory or secondary to pulmonary edema. Obliteration and leveling of the left lower lung zone may be secondary to pleural effusion. Heart and Mediastinum: Prominent hilar Widened superior mediastinum Cardiomegaly. Bony Thorax: Bony thorax appears intact without fractures or deformities. Soft Tissues: Chest leads Endotracheal tube 3.3cm above the [place] IMPRESSION: 1. Cardiomegaly. 2. The scanned field shows progressive (worsening) bilateral pulmonary opacities/infiltrates that could be inflammatory or secondary to pulmonary edema, which needs clinical correlation 3. A more widened superior mediastinum may be secondary to congested/enlarged vessels, yet may need further CT assessment if clinically warranted. 4. Obliteration and leveling of the left lower lung zone may be secondary to pleural effusion. 5. Endotracheal tube 3.3 cm above the [place] Electronically signed by Ridge Avalos 04-22-2025 03:[address] 04/22/25 02:21 EXAM: CT head/brain wo con CLINICAL HISTORY: Severe headache. TECHNIQUE: Axial non-contrast CT scan of the brain was performed from the skull base to the high parietal region. One of the following dose reduction techniques were utilized for this exam: Automated exposure control, adjustment of the mA and/or kV according to patient size, use of iterative reconstruction. COMPARISON: None available. FINDINGS: Brain Parenchyma: Normal attenuation of the cerebral hemispheres, cerebellum, and brainstem. No evidence of acute infarct, hemorrhage, or mass effect. No abnormal areas of hypo- or hyperattenuation. Ventricular System: Ventricles are normal in size and configuration. No evidence of hydrocephalus or ventricular enlargement. Subarachnoid Spaces: Normal sulci and cisterns. No evidence of subarachnoid hemorrhage or extra-axial fluid collections. Cerebellum and Brainstem: No masses, lesions, or areas of abnormal density. Orbits: Normal appearance of the globes, optic nerves, and extraocular muscles. No evidence of orbital masses or abnormal density. Sinuses: Clear paranasal sinuses. No evidence of sinusitis or mucosal thickening. Mastoid Air Cells: Clear mastoid air cells. No evidence of mastoiditis. Skull: Normal skull morphology. IMPRESSION: No acute intra-cranial pathology. Electronically signed by Ridge Avalos 04-22-2025 04:06 AM Venous Doppler Study 04/22/25 03:37 EXAM: US venous doppler LE BI CLINICAL HISTORY: Rule out DVT. TECHNIQUE: Ultrasound examination of bilateral lower extremity veins was performed in real time and duplex. One or more of the following were performed- spectral analysis, resistive index, waveform analysis, and pulsed Doppler. COMPARISON: 03/05/2024, Venous doppler. FINDINGS: Normal phasic, non-pulsatile, and spontaneous flow is noted in the bilateral visualized greater saphenous, common femoral, superficial femoral, and popliteal veins. Normal color flow noted in profunda femoris, anterior tibial, posterior tibial, and peroneal veins; however, compression and augmentation images of these veins are not available. The other visualized veins of both lower extremities demonstrate normal compressibility. No sonographic evidence of acute deep vein thrombosis (DVT) is detected in the visualized veins of both lower extremities. Compression and Augmentation: All visualized evaluated veins compress fully with the applied transducer pressure. Augmentation of venous flow is noted with distal compression. Additional Findings: No evidence of intraluminal thrombus. Possible minimal soft tissue edema in both lower limbs. IMPRESSION: 1. No sonographic evidence of acute DVT was detected in bilateral common femoral, superficial femoral, popliteal, anterior tibial, posterior tibial, and peroneal veins at the time of examination. 2. Possible minimal soft tissue edema in both lower limbs; however, it was more conspicuous in the prior examination. Disclaimer: DVT could be missed early in the disease when the clot burden is minimal. For patients with moderate and high pretest probability of DVT and negative ultrasound, the [employer] clinical guidelines recommend testing with a D-dimer assay or repeat ultrasound in 5-7 days. If symptoms worsen, the Society of Radiologists in Ultrasound recommends repeating the ultrasound even earlier. Electronically signed by Ridge Avalos 04-22-2025 06:15 AM Chest X-Ray 04/22/25 04:00 EXAM: XR chest 1V portable CLINICAL HISTORY: Follow-up infiltrates TECHNIQUE: An X-ray image of the chest is obtained in AP projection. COMPARISON: 04/22/2025 01:11:00 COMPETITIVE INTELLIGENCE MANAGER FINDINGS: Pulmonary Parenchyma: Bilateral pulmonary opacities/infiltrates that could be inflammatory or secondary to pulmonary edema. Obliteration and leveling of the left lower lung zone may be secondary to pleural effusion. Clear right costophrenic angle. Heart and Mediastinum: Prominent hilar Widened superior mediastinum (stable) Cardiomegaly (stable). Bony Thorax: Bony thorax appears intact without fractures or deformities. Soft Tissues: Chest leads Endotracheal tube 4.8 cm above the [place] NGT is coursing below the left hemidiaphragm; the distal end is not included. (new) IMPRESSION: 1. No significant changes compared to the prior study dated 04/22/2025 01:11:00 COMPETITIVE INTELLIGENCE MANAGER 2. Unchanged bilateral pulmonary opacities/infiltrates that could be inflammatory or secondary to pulmonary edema, which needs clinical correlation 3. Obliteration and leveling of the left lower lung zone may be secondary to pleural effusion. 4. An endotracheal tube is seen in situ, 4.8 cm above the n[place]. 5. NGT is coursing below the left hemidiaphragm; the distal end is not included. (new) Electronically signed by Ridge Avalos 04-22-2025 06:07 AM Shoulder X-Ray 04/22/25 04:09 EXAM: XR shoulder LT min 2V routine CLINICAL HISTORY: Dislocated shoulder TECHNIQUE: X-ray images of the left shoulder were obtained in anteroposterior (AP) and Y-view projections. COMPARISON: No prior studies available for comparison. FINDINGS: Bone Structure: Abnormal anteroinferior subluxation of the humeral head is noted. Cortical irregularity is noted along humeral shaft - correlate with old history of trauma. The remaining bone structure is normal and aligned. No evidence of fracture is seen. No osseous lesions or other abnormalities are identified. Joint Spaces: There is widening of the glenohumeral and subacromial spaces. The acromioclavicular joint space is normal. Soft Tissues: The soft tissues appear normal and unremarkable. No soft tissue swelling, calcifications, or foreign bodies are noted. Additional Findings: No signs of osteoarthritis, bone spurs, or lytic or sclerotic lesions are present. Limited image of left lung shows perihilar veiling/opacities - repeat X-ray for chest if clinically indicated. IMPRESSION: Inferior subluxation of the humeral head, with no evidence of a gross acute fracture. Disclaimer: A subtle bone abnormality or fracture may not be readily apparent on X-rays, thus clinical correlation and further imaging including follow-up CT, MRI, or follow-up X-rays are advised as needed. Electronically signed by Ridge Avalos 04-22-2025 08:25 AM Elbow X-Ray 04/22/25 12:44 XR elbow LT 2V CLINICAL HISTORY: elbow pain COMPARISON: None FINDINGS: There are degenerative changes with moderate joint space narrowing and osteophytosis. There is a chronic calcification anterior to the distal humerus and another posterior to the distal humerus consistent with calcified intra-articular bodies. There is a large joint effusion. No acute fracture or dislocation seen. IMPRESSION: 1. No fracture seen. 2. Degenerative changes with joint effusion. ACT 112: Negative or not required by law. Electronically signed by: Jesse Hansen M.D. 04/22/2025 3:02 PM Hand X-Ray 04/22/25 12:44 XR wrist LT min 3V routine, XR hand LT min 3V routine CLINICAL HISTORY: left wrist pain . Left hand pain. COMPARISON: None FINDINGS: There are mild degenerative changes at the left wrist without erosions. No fracture or dislocation seen. There are mild scattered degenerative changes at the left hand without erosions. No fracture or dislocation seen. There is a bone island at the fourth distal phalanx. There is periarticular osteopenia. IMPRESSION: No fracture seen. ACT 112: Negative or not required by law. Electronically signed by: Jesse Hansen M.D. 04/22/2025 3:04 PM Wrist X-Ray 04/22/25 12:44 XR wrist LT min 3V routine, XR hand LT min 3V routine CLINICAL HISTORY: left wrist pain . Left hand pain. COMPARISON: None FINDINGS: There are mild degenerative changes at the left wrist without erosions. No fracture or dislocation seen. There are mild scattered degenerative changes at the left hand without erosions. No fracture or dislocation seen. There is a bone island at the fourth distal phalanx. There is periarticular osteopenia. IMPRESSION: No fracture seen. ACT 112: Negative or not required by law. Electronically signed by: Jesse Hansen M.D. 04/22/2025 3:04 PM Chest X-Ray 04/23/25 07:51 XR chest 1V portable CLINICAL HISTORY: eval lung parenchyma anticipation for extubation COMPARISON STUDY: Chest radiograph April 22, 2025 at 4:00 AM. FINDINGS: The tip of the endotracheal tube is 5.7 cm above the [place]. Tip of nasogastric tube is below the lower aspect of this image but at least within the distal esophagus. There is no pneumothorax. Small left pleural effusion persists. Dense left basilar opacity persists. Interstitial thickening has improved. There is residual pulmonary vascular congestion with suspected mild pulmonary edema. Right basilar opacity is unchanged. Cardiomegaly is again noted. IMPRESSION: 1. Satisfactory positioning of the endotracheal tube. 2. Cardiomegaly. Persistent but improved pulmonary edema. 3. Persistent bibasilar opacities which may represent pneumonia or atelectasis. ACT 112: Negative or not required by law. Electronically signed by: Walter Mayen M.D. 04/23/2025 8:16 AM PG Care Time/CCT Total # of Minutes Spent Total Time Spent with Patient: Total time spent is greater than 50% in coordination of care (as documented) at patient's floor/unit and/or counseling patient: Coding Level of Care Code 88163 SUB INP/OBS CARE MIN Diagnoses Pickwickian syndrome E66.2 Acute on chronic respiratory failure with hypoxia and hypercapnia J96.21; J96.22 CHF (congestive heart failure) I50.9 Morbid obesity E66.01 Metabolic alkalosis E87.3 SOB (shortness of breath) R06.02 History of tobacco abuse Z87.891
--- NOTE | 2025-04-24 12:07 | Hospitalist Progress Note ---
Date of Service April 24, 2025 Assessment & Plan (1) Acute on chronic respiratory failure with hypoxia and hypercapnia: (2) Obesity hypoventilation syndrome: (3) Restrictive lung disease: (4) Bilateral pulmonary infiltrates: (5) Failure to thrive in adult: (6) Physical deconditioning: Plan 54M with PMH morbid obesity (BMI 50-60), HTN, HFpEF with severe LVH, pulmonary hypertension, OHS/EMELY with treatment non-compliance, chronic mixed respiratory failure on 2L NC O2, psoriasis, severe OA, bedbound status, previously on hospice which was revoked, who was admitted on 04/22 for acute on chronic hypoxic hypercarbic resp failure requiring mechanical intubation #Acute on chronic hypoxic hypercarbic resp failure #possible Pneumonia -ExtubatedOn 04/24; was then placed on BiPAP -Etiology: not having AVAPS at home (he had AVAPS while on hospice but machine was taken away when hospice was revoked) -CXR showing persistent pulm edema, bibasilar opacities, PNA vs atelectasis Plan: -Continue bipap per pulm -Empirically being treated for PNA with CTX, continue -Wean O2 as tolerated -Pulm to set up with AVAPS on discharge -Patient getting diuresed with IV Lasix #Hypotension- off vasopressors #Acute on chronic HFpEF -TTE 04/22 showing normal EF -Still appears greatly volume overloaded -on iv lasix,continue #UTI -UA suggestive of UTI -Continue CTX. would favor 5 days of abx. blood and urine cx neg #Obesity Class III -Complicates all aspects of his care -He is bedbound and non ambulatory -PT/OT as tolerated -Diet and exercise counseling #Elevated D dimer -D dimer elevated, has been elevated in the past -Dopplers neg for DVT -Unable to fit in CT scanner -He is high risk for DVT given his non ambulatory status -Continue sq heparin #L shoulder pain -Chronic issue for him -Unable to fit in MRI or CT scanner -X ray showing Inferior subluxation of the humeral head, with no evidence of a gross acute fracture. - consulted orthopedics - pt ot Conditional code; no CPR, okay for mechanical ventilation DVT prophylaxis heparin I spent a total of 60 minutes coordinating, documenting, and providing care for this patient excluding time spent in the performance of separately billed services. This included personally reviewing all current laboratories and imaging studies, medical reconciliation, outpatient chart review and discussion with specialists Admission and Anticipated Discharge Date Admission Date: April 22, 2025 Subjective Patient seen and examined at bedside. He is comfortable; not in distress. Denies any pain or discomfort. No significant events overnight Review of Systems Review of Systems: All systems reviewed & are unremarkable except as noted in Subjective Physical Exam Physical Exam: General: Comfortable; not in distress. Cardiac: RRR no rubs gallops or murmurs Lungs: decreased bs bilaterally. no rales wheez or rhonchi Abd: S NT ND BS positive MSK: Full ROM. No obvious deformities Ext: 1+ b/l LE non pitting Edema cyanosis Skin: Warm, Dry Neuro: AOx3. PERRLA, EOMI, CN II to XII intact. unable to lift left hand ( at baseline, reports that it happened about one year ago) Psych: Normal Mood Results & Data Results & Data Vital Signs (Past 12 Hours) Vital Signs Temp Pulse Pulse Resp BP BP Pulse Ox 04/24/25 11:00 36.9 C 85 22 131/79 98 04/24/25 09:05 37.2 C 94 H 24 79 L 04/24/25 08:18 37.3 C 90 18 94 04/24/25 08:00 04/24/25 08:00 04/24/25 08:00 78 04/24/25 07:44 96 H 16 93 04/24/25 07:00 37.3 C 87 22 121/79 94 04/24/25 07:00 36.9 C 04/24/25 03:00 37.5 C 85 18 121/79 95 04/24/25 01:42 78 24 95 04/24/25 01:41 78 24 95 Pulse Ox O2 Del Method O2 Del Method O2 Flow Rate O2 Flow Rate FiO2 04/24/25 11:00 Room Air 04/24/25 09:05 04/24/25 08:18 04/24/25 08:00 Nasal Cannula 3 04/24/25 08:00 95 Nasal Cannula 3 04/24/25 08:00 04/24/25 07:44 Nasal Cannula 3 04/24/25 07:00 04/24/25 07:00 04/24/25 03:00 BiPAP 30 04/24/25 01:42 30 04/24/25 01:41 BiPAP 30
--- NOTE | 2025-04-24 13:10 | Ultrasound Report ---
LEFT UPPER EXTREMITY VENOUS DOPPLER ULTRASOUND CLINICAL HISTORY: Left arm discoloration. Evaluate for clot. COMPARISON STUDY: No previous studies for comparison. TECHNIQUE: Sonography of the venous system of the left upper extremity was performed. FINDINGS: This exam is mildly compromised by suboptimal penetration. The left internal jugular, subcl angie, axillary, brachial, radial, ulnar, cephalic and basilic veins were patent. No venous thrombus was identified within the left upper extremity. IMPRESSION: No venous thrombus identified within the left upper extremity. ACT 112: Negative or not required by law. Electronically signed by: Walter Mayen M.D. 04/24/2025 1:08 PM
--- NOTE | 2025-04-24 13:43 | Pharmacy Report ---
Pharmacy Glycemic Short Note 2 - Date of Service April 24, 2025 - Glycemic Short BSG Results (Last 24 hours): 04/23/25 04/23/25 04/23/25 14:00 16:13 19:31 Glucose 83 POC Glucose 80 86 04/24/25 04/24/25 04/24/25 05:01 07:22 10:50 Glucose 101 H POC Glucose 89 88 OUTPATIENT ANTIDIABETIC REGIMEN: * Metformin 1000 mg PO BID on previous med list- unconfirmed * A1c 5.1% 04/22/25 ASSESSMENT: 04/24 * Patient has been extubated, no longer requiring pressors. * BSGs 69-96 mg/dL with no insulin yesterday. Diet is now ordered. * BSGs 89-88 mg/dL today. Will continue with correctional only insulin for now. Monitor with diet. 04/22 * Mr. oGdinez was admitted for respiratory failure, currently intubated. On metformin outpatient, A1c indicates good control. * BSG elevated in the 200s- novolog ordered/loosened as BSG improved without insulin * Intermittently requiring levophed, will monitor. * Removed from hospice in November PLAN FOR INPATIENT GLYCEMIC CONTROL: * Hold outpatient oral diabetes medications * Basal insulin * Hold * Bolus insulin * NovoLog per scale ACHS or Q6hrs while NPO * Goal Range: Low 140 mg/dL - High 160 mg/dL * Correction Factor: 30 mg/dL/unit * Nutritional / Prandial insulin per carb ratio of 1 unit per -- grams CHO consumed
--- NOTE | 2025-04-24 14:53 | Palliative Family Discussion ---
Date of Service April 24, 2025 Patient Directed Conference Time of Meetin:10 - 13:40 Participants:SonyaBlanche Trammell AGACNP Patient participation: yes Patient Support System: spouse Other Healthcare Provider Participation: None Meeting Location: bedside room 107 Advanced Directive available: no If yes, descriptors: The patient's surrogate medical decision maker participated: spouse present Legally authorized health care proxy: n/a Other surrogate: n/a A family meeting was held for STEFANO ZAMORA. This meeting was necessary for determining the appropriate course of treatment. Topics of Discussion Topics of Discussion: 1. pt values/GOC 2. role of palliative care team 3. code status Other Content of Meetin. Opportunity given for participants to speak and ask questions. 2. Participants were assured of attention to patient comfort. 3. Reassurance provided. 4. Support was provided for informed, good-jodi decisions. 5. Emotions expressed by family were acknowledged and addressed. 6. Follow-up Outpatient: n/a 7. Plan of Care: DNR, pt ok with intubation and mechanical ventilation if needed Met with pt and his at bedside. Introduced Palliative Medicine and explained our role in advanced care planning, symptom management and navigation through the progression of life limiting disease. Patient and/or family were receptive to palliative services for goals of care discussions. Reviewed we are different from hospice, a home health nurse visiting service. Pt's shared that they wish for discharge to home as soon as able and pt. has needs for multiple items (bed, oxygen, lift, bipap machine and other items) to support his health. Pt expressed desire to continue on current course of care, repeatedly stating "no hopsice", and he wishes to be home as soon as we can safely discharge him. Spouse shared that they have previously used [facility] and they would like to change to a different organization due to dissatisfaction with services. She stated that she is able to provide all pt's basic daily care but would need someone to assist her in changing the bed linens (due to pt's size she is unable to lift or roll him). She shared that they had requested a lift and a grab bar previously so that pt could help shift his weight, but never received either. Pt states that he is feeling back to his baseline and wishes to be discharged to home, but is willing to wait for C to be set up. Discussed pt's GOC and he again confirmed that he would not wish for CPR, but has been on the vent before and is okay with intubation if needed to prolong his life. He states that he has had good outcomes from previous intubations. We will sign off on this patient as goals of care are clearly established for DNR but continue all other life prolonging therapies including mechanical ventilation if needed. Thank you for including Palliative Care in the management of this patient. Please call with any questions or concerns regarding this consultation. Time Involved in Meeting: I spent 50 minutes overall addressing this case: 5 in medical data review/discussion with referring provider(s) and/or preparation for the visit 30 in direct interaction with the patient and his 30 Advance Care Planning/Goals of Care discussions as detailed above in note (must be >16min) 10 in subsequent review and synthesis of assessment and plan 5 in communicating with other providers regarding the patient's case: NEISHA PALACIOS, Attending
[2025-04-24] MEDS: FLUTICASONE PROPIONATE NA SPR 16 GM BTL SCH (20:03)
--- NOTE | 2025-04-24 20:27 | Orthopedic Consultation ---
Date of Consultation April 24, 2025 Assessment & Plan (1) Chronic left shoulder pain: (2) Obesity hypoventilation syndrome: (3) Acute on chronic respiratory failure with hypoxia and hypercapnia: (4) Acute hypercapnic respiratory failure: (5) CHF (congestive heart failure): (6) Psoriasis diffusa: (7) Physical deconditioning: (8) HTN (hypertension), benign: (9) Restrictive lung disease secondary to obesity: (10) Morbid obesity: (11) Obesity: (12) EMELY (obstructive sleep apnea): (13) Hypoxia: (14) SOB (shortness of breath): (15) Respiratory failure requiring intubation: (16) Candidiasis of mouth and esophagus: (17) Morbid obesity with BMI of 60.0-69.9, adult: Kev Navarrete is a 54-year-old gentleman who appears quite older than stated age and is quite unhealthy. He was admitted to the hospital in the ICU for respiratory arrest requiring intubation. Reportedly, the patient was not using his home BiPAP in the evenings. The patient has subsequently been extubated and is conversant at this time. He reports significant pain in his left shoulder and he notes this is chronic and has been dealing with this for about a year. On my evaluation, patient's x-rays do not demonstrate any acute osseous abnormalities. On the AP view of the shoulder there was concern for some subluxation of the glenohumeral joint, however axillary view confirms that the glenohumeral joint is concentrically reduced. With regards to the patient's shoulder, I suspect that his physical deconditioning in general also involves deconditioning of his shoulder. I suspect that the patient has a very poorly functioning shoulder girdle musculature. In addition, the patient's arm is quite heavy making it even more challenging for him to lift this. There are no acute orthopedic surgical interventions planned during this admission, and I think the patient would be best served to follow-up with an upper extremity specialist such as Dr. Mejia. with regards to potential surgical management strategies for this, I do not think the patient is in a physical state of health to undergo any real elective surgical procedure. In the interim, I do recommend physical therapy and Occupational Therapy to work on strengthening the patient's left upper extremity. Upon discharge, he can follow-up with the upper extremity specialist History of Present Illness Reason for Consultation: left shoulder pain Attending Physician: Randolph Hernandez MD History of Present Illness 54M with PMH morbid obesity (BMI 50-60), HTN, HFpEF with severe LVH, pulmonary hypertension, OHS/EMELY with treatment non-compliance, chronic mixed respiratory failure on 2L NC O2, psoriasis, severe OA, bedbound status, previously on hospice which was revoked, who was admitted on 04/22 for acute on chronic hypoxic hypercarbic resp failure requiring mechanical intubation. He has since been extubated. per the medical notes, he was not having AVAPS at home (he had AVAPS while on hospice but machine was taken away when hospice was revoked). after the patient was extubated, he was reportedly complaining of left shoulder pain. per the patient and his he notes he has been having left shoulder pain for the past year after he suspected that he was dropped by medical staff while admitted at an outside hospital. HE notes his shoulder has been bothersome since that admission. he notes that pain prevents him from using his left upper extremity. He notes no changes since admission as compared to prior to admission. Allergies Allergy/AdvReac Type Severity Reaction Status Date / Time latex Allergy Severe Rash Unverified 04/22/25 17:47 zinc Allergy Rash Verified 04/22/25 17:47 Home Medications Medication Instructions Recorded Confirmed Type magnesium oxide 400 mg (241.3 mg 400 mg PO AMPM #60 tabs 04/21/24 04/22/25 Rx magnesium) tablet metoprolol tartrate 25 mg tablet 25 mg PO AMPM #60 tabs 04/21/24 04/22/25 Rx acetaminophen 500 mg tablet 500 mg PO Q6H PRN Pain 04/22/25 04/22/25 History amlodipine 5 mg tablet 5 mg PO QAM 04/22/25 04/22/25 History aspirin 81 mg tablet,delayed 81 mg PO QPM 04/22/25 04/22/25 History release pqqzqfg-vylppucgeylhv-nfguyokq 250 1 tab PO Q6H PRN Migraine Headache 04/22/25 04/22/25 History mg-250 mg-65 mg tablet (Excedrin Migraine) furosemide 80 mg tablet 80 mg PO DAILY PRN Swelling 04/22/25 04/22/25 History ibuprofen 200 mg capsule (Advil 200 mg PO Q6H PRN Migraine Headache 04/22/25 04/22/25 History Migraine) multivitamin 1 tab PO DAILY 04/22/25 04/22/25 History potassium chloride 10 mEq 20 meq PO DAILY PRN If taking Lasix 04/22/25 04/22/25 History tablet,extended release(part/cryst) Patient History Medical History Respiratory failure requiring intubation Prediabetes Candidiasis of mouth and esophagus AV block Benign essential hypertension Tinea cruris Psoriasis Pickwickian syndrome Cellulitis of leg, right Morbid obesity with BMI of 60.0-69.9, adult Surgical History History of appendectomy History of cholecystectomy Social History Smoking Status: Former smoker Tobacco Type: Cigarettes Cigarettes Per Day: pack per day; Second Hand Exposure: No; Do You Dip or Chew Tobacco: No; Hx Alcohol Use: No Hx Substance Use: No Preferred Language: Macedonian Communication Ability: Impaired Youth Associate Required: No Beliefs That Will Affect Care: None Current Living Situation: Spouse Feels Safe at Home: Yes Assistive Devices: Hospital Bed, Oxygen - Continuous and Other Review of Systems Review of Systems: All systems reviewed & are unremarkable except as noted in HPI & below Physical Exam Physical Exam: left upper extemity exam: patient has no pain with passive ROM of his shoulder. he has severe weakness in motions in all directions. his upper extremities warm and well-perfused. Results & Data Vital Signs (Past 12 Hours) Vital Signs Temp Pulse Pulse Resp BP BP Pulse Ox 04/24/25 20:20 36.9 C 97 H 16 126/85 96 04/24/25 19:27 83 18 94 04/24/25 16:00 86 04/24/25 15:50 80 24 116/64 96 04/24/25 15:00 37.2 C 91 H 24 94 04/24/25 14:06 37.4 C 86 19 91 04/24/25 13:49 93/64 L 04/24/25 13:42 37.4 C 81 24 94 04/24/25 13:24 87 16 96 04/24/25 12:09 37.4 C 90 24 94 04/24/25 11:00 36.9 C 85 22 131/79 98 04/24/25 10:08 37.3 C 84 21 97 04/24/25 09:05 37.2 C 94 H 24 79 L O2 Del Method O2 Flow Rate 04/24/25 20:20 Nasal Cannula 3 04/24/25 19:27 Nasal Cannula 3 04/24/25 16:00 04/24/25 15:50 Nasal Cannula 3 04/24/25 15:00 Nasal Cannula 3 04/24/25 14:06 04/24/25 13:49 04/24/25 13:42 04/24/25 13:24 Nasal Cannula 3 04/24/25 12:09 04/24/25 11:00 Room Air 04/24/25 10:08 04/24/25 09:05 Diagnostic Findings X-rays of the shoulder including an axillary view demonstrate no acute osseous abnormalities. There was concern for pseudosubluxation of the glenohumeral joint on the AP view, however believe this was just positioning. (11) Obesity Obesity type: unspecified obesity type Obesity classification: adult class 3 (BMI >= 40) Serious obesity comorbidity presence: unspecified whether serious comorbidity present Body mass index: BMI 60.0-69.9 Qualified Code(s): E66.01 - Morbid (severe) obesity due to excess calories; Z68.44 - Body mass index [BMI] 60.0-69.9, adult
--- NOTE | 2025-04-25 00:49 | XRay Report ---
Exam(s): XR LEFT SHOULDER, 1 view EXAM: XR Left Shoulder, 1 View CLINICAL HISTORY: Reason for exam: pain, please include axillary view. TECHNIQUE: Axillary view of the left shoulder. COMPARISON: No relevant prior studies available. FINDINGS: Bones/joints: No acute fracture. No dislocation. Soft tissues: Unremarkable. IMPRESSION: No acute osseous findings. Electronically signed by: Arslan Smith M.D. 04/25/25 00:48 AM
[2025-04-25 04:45] LABS: Hematocrit (blood only) 43.3 % (42.0-52.0); Hemoglobin 13.4 g/dl (14.0-18.0); Immature Granulocytes # (auto) 0.08 K/uL (0.01-0.20); Immature Granulocytes % (auto) 1.1 %; Mean Corpuscular Hemoglobin 29.7 pg (25.0-34.0); Mean Corpuscular Volume 96.0 fL (80.0-100.0); Platelet Count 171 K/uL (130-400); RDW Standard Deviation 47.2 fL (36.4-46.3); Red Blood Count 4.51 M/uL (4.70-6.10); White Blood Count 7.57 K/ul (4.8-10.8)
[2025-04-25 04:59] LABS: Anion Gap 5.0 (3-11); Blood Urea Nitrogen 13.0 mg/dl (6-23); Calcium 9.3 mg/dl (8.6-10.3); Carbon Dioxide 38.0 mmol/L (21-32); Chloride 98.0 mmol/L (98-107); Creatinine Clr Calc Pharmacy 480.7 ml/min; Glucose 113.0 mg/dl (70-99(Fasting)); Potassium 3.9 mmol/L (3.5-5.1); Sodium 141.0 mmol/L (136-145)
[2025-04-25] MEDS: FUROSEMIDE 40 MG TAB PO SCH (08:30)
--- NOTE | 2025-04-25 10:13 | Pulmonology Progress Note ---
Date of Service April 25, 2025 Assessment & Plan (1) Pickwickian syndrome: Plan: Patient reports that he was previously on hospice and had a trilogy NIV which has since been revoked. Prior to his hospitalization he was having cough for several days. His reports that he became unresponsive at home and she called EMS. He was intubated onsite due to presumed hypoxic and hypercapnic respiratory failure. He will ultimately require an NIV long-term to help prevent recurrent respiratory failure events. Case management has been consulted and working on getting DME resources for discharge.. Due to chronic hypercapnic respiratory failure consequent to obesity hypoventilation syndrome, the patient now requires a noninvasive home ventilator. Bilevel therapy with and without a rate would be ineffective as patient requires a volume targeted mode. Ventilation is required to decrease work of breathing and improve pulmonary status. Interruption of ventilator support would lead to decline of health status. NIMV settings should be AVAPS-AE; Breath rate: auto; Inspiratory time: auto; Sigh: off; Tidal Volume: 550, pressure support 12-20 EPAP 8-16 AVAPS rate: [14 during sleep and as needed] (2) Acute on chronic respiratory failure with hypoxia and hypercapnia: Plan: Patient was successfully extubated to NIV 04/23/2025. Today he is not coughing. He is without leukocytosis or fever. He is currently on ceftriaxone for possible UTI and possible bacterial pneumonia. Continue NIV and wean as able. Patient with acute on chronic hypercapnia and compensatory metabolic alkalosis. Improved compliance with NIV therapy will help improve his metabolic alkalosis. Patient has been wearing NIV overnight and tolerating well. He feels he is gaining clinical benefit from it patient will be at high risk for deterioration with out the continued use of positive pressure ventilation and would be at increased risk of readmission. (3) CHF (congestive heart failure): Plan: Patient currently being diuresed and likely with underlying diastolic heart failure. Echo 04/22/2025 revealed an EF of 55 to 60%. Mild tricuspid regurgitation. (4) Morbid obesity: Plan: Weight loss encouraged. Consider GLP-1 therapy as an outpatient. (5) SOB (shortness of breath): Plan: Shortness of breath multifactorial related to patient's severe deconditioning, morbid obesity, untreated COPD and pulmonary edema. This appears to be improving. (6) History of tobacco abuse: Plan: Patient has greater than 54-qtxy-klol smoking history. He is eligible for annual low-dose chest CT for lung cancer screening purposes. I am also going to start the patient on a LABA/ICS nebulizer therapy while inpatient and put him on Anne/Hope therapy every 6 hours while inpatient. As an outpatient he can be transition to a long-acting triple maintenance inhaler such as Breztri or Trelegy. He will need outpatient pulmonary follow-up. Plan 35 minutes is the time spent reviewing the chart, obtaining history, performing the physical exam, and updating the patient and bedside nurse. Admission and Anticipated Discharge Date Admission Date: April 22, 2025 Subjective "My breathing feels good and I am wearing my mask." Patient tolerating NIV at night and reports that his breathing is subjectively improved. Patient complains of left shoulder pain which ortho is following. Case management continues to work on getting DME reosurces for discharge to home. Patient hemodynamically stable. pulmonary will sign off scripts signed and recommendation sent for AVAPs. Review of Systems 2 Review of Systems: All systems reviewed & are unremarkable except as noted in HPI & below Physical Exam 2 Physical Exam: VITALS: Reviewed. WEIGHT/BMI reviewed. GEN: Obese, Well-developed, NAD. PSYCH: Good Judgment. AOx3. Normal memory, mood, and affect. HEENT -Head: NC/AT; -Eyes: PERRL, EOMI. No discharge or redn ess; -Ears: External ears are normal. -Nose: Normal nares. NECK: Supple, with no masses. CV: RRR, no m/r/g. LUNGS: Clear in b/l upper lobes. Diminished in b/l bases. Chest rise symmetrical. Breathing nonlabored. ABD: Soft, NT/ND, NBS, no masses or organomegaly. : N/A SKIN: Warm, well perfused. No skin rashes or abnormal lesions. MSK: No deformities, Normal gait. EXT: No clubbing, cyanosis, or edema. NEURO: generalize weakness and normal tone. No focal deficits. Results & Data Results & Data Vital Signs (Past 12 Hours) Vital Signs Temp Pulse Pulse Resp BP BP Pulse Ox 04/25/25 08:17 86 16 107/70 97 04/25/25 07:58 80 20 99 04/25/25 07:09 78 04/25/25 03:36 68 25 H 95 04/25/25 02:14 36.9 C 68 16 137/75 98 04/25/25 01:06 82 20 99 04/24/25 23:15 86 23 96 O2 Del Method O2 Flow Rate FiO2 04/25/25 08:17 Nasal Cannula 3 04/25/25 07:58 Nasal Cannula 5 04/25/25 07:09 04/25/25 03:36 40 04/25/25 02:14 BiPAP 04/25/25 01:06 BiPAP 30 04/24/25 23:15 30 Laboratory Results 04/25/25 04:26 04/25/25 04:26 Abnormal Lab Results 04/24/25 04/25/25 10:50 04:26 WBC 7.57 RBC 4.51 L Hgb 13.4 L Hct 43.3 MCV 96.0 MCH 29.7 MCHC 30.9 L RDW Std Deviation 47.2 H RDW Coeff of Nelson 13.5 Plt Count 171 MPV 8.5 L Immature Gran % (Auto) 1.1 Neut % (Auto) 57.1 Lymph % (Auto) 26.9 [place] % (Auto) 10.7 Eos % (Auto) 3.7 Baso % (Auto) 0.5 Neut # (Auto) 4.32 Lymph # (Auto) 2.04 [place] # (Auto) 0.81 H Eos # (Auto) 0.28 Baso # (Auto) 0.04 Immature Gran # (Auto) 0.08 Sodium 141 Potassium 3.9 Chloride 98 Carbon Dioxide 38 H Anion Gap 5 BUN 13 Creatinine 0.33 L Est Cr Clr Drug Dosing 480.7 eGFR 138.27 BUN/Creatinine Ratio 39.4 H Glucose 113 H POC Glucose 88 Calcium 9.3 Diagnostic Findings Extremity Venous Study 04/24/25 11:54 LEFT UPPER EXTREMITY VENOUS DOPPLER ULTRASOUND CLINICAL HISTORY: Left arm discoloration. Evaluate for clot. COMPARISON STUDY: No previous studies for comparison. TECHNIQUE: Sonography of the venous system of the left upper extremity was performed. FINDINGS: This exam is mildly compromised by suboptimal penetration. The left internal jugular, subclavian, axillary, brachial, radial, ulnar, cephalic and basilic veins were patent. No venous thrombus was identified within the left upper extremity. IMPRESSION: No venous thrombus identified within the left upper extremity. ACT 112: Negative or not required by law. Electronically signed by: Walter Mayen M.D. 04/24/2025 1:08 PM Shoulder X-Ray 04/24/25 19:42 Exam(s): XR LEFT SHOULDER, 1 view EXAM: XR Left Shoulder, 1 View CLINICAL HISTORY: Reason for exam: pain, please include axillary view. TECHNIQUE: Axillary view of the left shoulder. COMPARISON: No relevant prior studies available. FINDINGS: Bones/joints: No acute fracture. No dislocation. Soft tissues: Unremarkable. IMPRESSION: No acute osseous findings. Electronically signed by: Arslan Smith M.D. 04/25/25 00:48 AM PG Care Time/CCT Total # of Minutes Spent Total Time Spent with Patient: Total time spent is greater than 50% in coordination of care (as documented) at patient's floor/unit and/or counseling patient: Coding Level of Care Code 35788 SUB INP/OBS CARE 2/35MIN Diagnoses Pickwickian syndrome E66.2 Acute on chronic respiratory failure with hypoxia and hypercapnia J96.21; J96.22 CHF (congestive heart failure) I50.9 Morbid obesity E66.01 SOB (shortness of breath) R06.02 History of tobacco abuse Z87.891
--- NOTE | 2025-04-25 11:16 | Hospitalist Progress Note ---
Date of Service April 25, 2025 Assessment & Plan (1) Acute on chronic respiratory failure with hypoxia and hypercapnia: (2) Obesity hypoventilation syndrome: (3) Restrictive lung disease: (4) Bilateral pulmonary infiltrates: (5) Failure to thrive in adult: (6) Physical deconditioning: Plan 54M with PMH morbid obesity (BMI 50-60), HTN, HFpEF with severe LVH, pulmonary hypertension, OHS/EMELY with treatment non-compliance, chronic mixed respiratory failure on 2L NC O2, psoriasis, severe OA, bedbound status, previously on hospice which was revoked, who was admitted on 04/22 for acute on chronic hypoxic hypercarbic resp failure requiring mechanical intubation #Acute on chronic hypoxic hypercarbic resp failure #possible Pneumonia -Extubated On 04/24; was then placed on BiPAP -Etiology: not having AVAPS at home (he had AVAPS while on hospice but machine was taken away when hospice was revoked) -CXR showing persistent pulm edema, bibasilar opacities, PNA vs atelectasis Plan: -Continue bipap per pulm -Empirically being treated for PNA with CTX, continue Plan to treat for 5 days -Wean O2 as tolerated -Pulm to set up with AVAPS on discharge -IV Lasix changed to p.o. on 04/25 Patient needs home oxygen but is bedbound and is unable to perform two-step exercise. #Hypotension- off vasopressors #Acute on chronic HFpEF -TTE 04/22 showing normal EF - on diuretics, continue #UTI -UA suggestive of UTI - urine cx negative -Continue CTX. would favor 5 days of abx. #Obesity Class III -Complicates all aspects of his care -He is bedbound and non ambulatory -PT/OT as tolerated -Diet and exercise counseling #Elevated D dimer -D dimer elevated, has been elevated in the past -Dopplers neg for DVT -Unable to fit in CT scanner -He is high risk for DVT given his non ambulatory status -Continue sq heparin #L shoulder pain -Chronic issue for him -Unable to fit in MRI or CT scanner -X ray showing Inferior subluxation of the humeral head, with no evidence of a gross acute fracture. - consulted orthopedics; no intervention recommended - pt ot Conditional code; no CPR, okay for mechanical ventilation DVT prophylaxis heparin Disposition; plan to discharge home after home health, equipment is set up. I spent a total of 60 minutes coordinating, documenting, and providing care for this patient excluding time spent in the performance of separately billed services. This included personally reviewing all current laboratories and imaging studies, medical reconciliation, outpatient chart review and discussion with specialists Admission and Anticipated Discharge Date Admission Date: April 22, 2025 Subjective Patient seen and examined at bedside. He is lying on the bed comfortably; not in distress. He denies fever, chills, chest pain, shortness of breath or abdominal pain. No significant events overnight Review of Systems Review of Systems: All systems reviewed & are unremarkable except as noted in Subjective Physical Exam Physical Exam: General: Comfortable; not in distress. Cardiac: RRR no rubs gallops or murmurs Lungs: decreased bs bilaterally. no rales wheez or rhonchi Abd: S NT ND BS positive MSK: Full ROM. No obvious deformities Ext: 1+ b/l LE non pitting Edema cyanosis Skin: Warm, Dry Neuro: AOx3. PERRLA, EOMI, CN II to XII intact. unable to lift left hand ( at baseline, reports that it happened about one year ago) Psych: Normal Mood Results & Data Results & Data Vital Signs (Past 12 Hours) Vital Signs Temp Pulse Pulse Resp BP BP Pulse Ox 04/25/25 10:36 04/25/25 08:17 86 16 107/70 97 04/25/25 07:58 80 20 99 04/25/25 07:09 78 04/25/25 03:36 68 25 H 95 04/25/25 02:14 36.9 C 68 16 137/75 98 04/25/25 01:06 82 20 99 04/24/25 23:15 86 23 96 O2 Del Method O2 Flow Rate FiO2 04/25/25 10:36 Nasal Cannula 04/25/25 08:17 Nasal Cannula 3 04/25/25 07:58 Nasal Cannula 5 04/25/25 07:09 04/25/25 03:36 40 04/25/25 02:14 BiPAP 04/25/25 01:06 BiPAP 30 04/24/25 23:15 30
--- NOTE | 2025-04-25 11:39 | Pharmacy Report ---
Pharmacy Glycemic Sign Off Nt - Date of Service April 25, 2025 - Assessment & Plan ASSESSMENT: * Pharmacy was consulted by Dr. Natalie Clark on 04/22 for glycemic control and to write orders per [facility] inpatient glycemic control protocol. * Major changes made by pharmacy to antidiabetic regimen include: * Correction factor * Patient has been receiving/requiring 0 units of insulin per day for adequate glycemic control * BSGs ranging below 120 mg/dl * Regimen has required no adjustments over the past 48hrs to achieve this level of control * Do not anticipate further changes in patient status that would quickly deteriorate glycemic control (i.e. patient to be NPO for upcoming procedure, steroids tapering, starting tube feedings, etc). * Please see recommendations for outpatient antidiabetic regimen below. PLAN FOR INPATIENT GLYCEMIC CONTROL: No changes needed to current regimen. * Insulin was discontinued by hospitalist team, patient was requiring no insulin with good glycemic control * Pharmacy is signing off of glycemic consult and will no longer be making adjustments to inpatient regimen. Please feel free to re-consult if needed. Thank you.
[2025-04-25 18:46] LABS: Pneumococcal IgG Type 12 (12F) <0.3; Pneumococcal IgG Type 17 (17F) <0.3; Pneumococcal IgG Type 19 (19F) <0.3; Pneumococcal IgG Type 2 <0.3; Pneumococcal IgG Type 20 1.5; Pneumococcal IgG Type 22 (22F) <0.3; Pneumococcal IgG Type 23 (23F) <0.3; Pneumococcal IgG Type 26 (6B) <0.3; Pneumococcal IgG Type 34 (10A) <0.3; Pneumococcal IgG Type 43 (11A) <0.3; Pneumococcal IgG Type 51 (7F) <0.3; Pneumococcal IgG Type 54 (15B) <0.3; Pneumococcal IgG Type 56 (18C) 1.6; Pneumococcal IgG Type 57 (19A) 2.4; Pneumococcal IgG Type 68 (9V) <0.3; Pneumococcal IgG Type 70 (33F) <0.3
[2025-04-26 06:10] LABS: Hematocrit (blood only) 41.4 % (42.0-52.0); Hemoglobin 13.5 g/dl (14.0-18.0); Immature Granulocytes # (auto) 0.06 K/uL (0.01-0.20); Immature Granulocytes % (auto) 0.7 %; Mean Corpuscular Hemoglobin 31.0 pg (25.0-34.0); Mean Corpuscular Volume 95.0 fL (80.0-100.0); Platelet Count 189 K/uL (130-400); RDW Standard Deviation 44.7 fL (36.4-46.3); Red Blood Count 4.36 M/uL (4.70-6.10); White Blood Count 8.91 K/ul (4.8-10.8)
[2025-04-26 06:52] LABS: Anion Gap 6.0 (3-11); Blood Urea Nitrogen 16.0 mg/dl (6-23); Calcium 9.3 mg/dl (8.6-10.3); Carbon Dioxide 39.0 mmol/L (21-32); Chloride 96.0 mmol/L (98-107); Creatinine Clr Calc Pharmacy 566.7 ml/min; Glucose 109.0 mg/dl (70-99(Fasting)); Potassium 3.8 mmol/L (3.5-5.1); Sodium 141.0 mmol/L (136-145)
[2025-04-26 11:04] VITALS: TEMP 98.1
--- NOTE | 2025-04-26 12:49 | Hospitalist Progress Note ---
Date of Service April 26, 2025 Assessment & Plan (1) Acute on chronic respiratory failure with hypoxia and hypercapnia: (2) Obesity hypoventilation syndrome: (3) Restrictive lung disease: (4) Bilateral pulmonary infiltrates: (5) Failure to thrive in adult: (6) Physical deconditioning: Plan 54M with PMH morbid obesity (BMI 50-60), HTN, HFpEF with severe LVH, pulmonary hypertension, OHS/EMELY with treatment non-compliance, chronic mixed respiratory failure on 2L NC O2, psoriasis, severe OA, bedbound status, previously on hospice which was revoked, who was admitted on 04/22 for acute on chronic hypoxic hypercarbic resp failure requiring mechanical intubation #Acute on chronic hypoxic hypercarbic resp failure #possible Pneumonia -Extubated On 04/24; was then placed on BiPAP -Etiology: not having AVAPS at home (he had AVAPS while on hospice but machine was taken away when hospice was revoked) -CXR showing persistent pulm edema, bibasilar opacities, PNA vs atelectasis Plan: -Continue bipap per pulm -Empirically being treated for PNA with CTX, continue Plan to treat for 5 days -Wean O2 as tolerated -Pulm to set up with AVAPS on discharge -IV Lasix changed to p.o. on 04/25 Patient needs home oxygen but is bedbound and is unable to perform two-step exercise. #Hypotension- off vasopressors #Acute on chronic HFpEF -TTE 04/22 showing normal EF - on diuretics, continue #UTI -UA suggestive of UTI - urine cx negative -Continue CTX. would favor 5 days of abx. #Obesity Class III -Complicates all aspects of his care -He is bedbound and non ambulatory -PT/OT as tolerated -Diet and exercise counseling #Elevated D dimer -D dimer elevated, has been elevated in the past -Dopplers neg for DVT -Unable to fit in CT scanner -He is high risk for DVT given his non ambulatory status -Continue sq heparin #L shoulder pain -Chronic issue for him -Unable to fit in MRI or CT scanner -X ray showing Inferior subluxation of the humeral head, with no evidence of a gross acute fracture. - consulted orthopedics; no intervention recommended - Recommend follow up with orthopedics Conditional code; no CPR, okay for mechanical ventilation DVT prophylaxis heparin Disposition; plan to discharge home after home health, equipment is set up. I spent a total of 50 minutes coordinating, documenting, and providing care for this patient excluding time spent in the performance of separately billed services. This included personally reviewing all current laboratories and imaging studies, medical reconciliation, outpatient chart review and discussion with specialists Admission and Anticipated Discharge Date Admission Date: April 22, 2025 Subjective Patient seen and examined at bedside. Comfortable; not in distress. Denies fever, chills, chest pain, shortness of breath, abdominal pain or urinary symptoms. No significant overnight events Review of Systems Review of Systems: All systems reviewed & are unremarkable except as noted in Subjective Physical Exam Physical Exam: General: Comfortable; not in distress. Cardiac: RRR no rubs gallops or murmurs Lungs: decreased bs bilaterally. no rales wheez or rhonchi Abd: S NT ND BS positive MSK: Full ROM. No obvious deformities Ext: 1+ b/l LE non pitting Edema cyanosis Skin: Warm, Dry Neuro: AOx3. PERRLA, EOMI, CN II to XII intact. unable to lift left hand ( at baseline, reports that it happened about one year ago) Psych: Normal Mood Results & Data Results & Data Vital Signs (Past 12 Hours) Vital Signs Temp Pulse Pulse Resp BP Pulse Ox O2 Del Method 04/26/25 11:00 36.7 C 98 H 18 103/71 95 Room Air 04/26/25 08:00 Nasal Cannula 04/26/25 08:00 76 04/26/25 07:45 76 18 93 Nasal Cannula 04/26/25 07:38 36.6 C 77 19 100/69 95 Nasal Cannula 04/26/25 04:42 76 16 96 04/26/25 03:36 36.8 C 68 20 118/80 97 Room Air 04/26/25 01:03 74 17 96 BiPAP O2 Flow Rate 04/26/25 11:00 04/26/25 08:00 2 04/26/25 08:00 04/26/25 07:45 4 04/26/25 07:38 2.0 04/26/25 04:42 4 04/26/25 03:36 04/26/25 01:03 4
[2025-04-26 13:09] VITALS: RESP 17; O2SAT 96
--- NOTE | 2025-04-26 15:26 | Discharge Summary ---
Date of Service April 26, 2025 Admission HPI Per Admitting Provider Landon Godinez is a 54yo male with history of HTN, HFpEF, PH, EMELY/OHS with non-compliance with AVAPS presenting with unresponsiveness. Patient found to be hypoxic in the 50s. He was intubated in the field. Upon arrival patient afebrile, hypotensive otherwise HD stable ER Course: NSS x 500mL Midazolam Levophed Precedex Admission Exam Per Admitting Provider General: intubated, not sedated, moving all extremities Skin: scattered lesions on skin, no evidence of infection HEENT: NC/AT, PERRL, anicteric sclera, conjunctiva without injection, external ear normal to inspection and nontender, nares patent, moist mucus membranes, dentition intact, no oropharyngeal lesions, neck supple, trachea midline, no LAD, no thyromegaly, no JVD Heart: +S1/S2, regular, no m/r/g Lungs: equal air entry bilaterally, no rales/rhonchi/wheezes Abd: +BS, soft, NT/ND, no masses/organomegaly/ascites Perez in place with dark colored urine int he bag Ext: warm, 2+ pulses in UE/LE bilaterally, no clubbing/cyanosis or edema Neuro: intubated, sedated, grossly nonfocal Principal Diagnosis 1) Acute on chronic respiratory failure with hypoxia and hypercapnia: (2) Obesity hypoventilation syndrome: (3) Restrictive lung disease: (4) Bilateral pulmonary infiltrates: (5) Failure to thrive in adult: (6) Physical deconditioning: Discharge Exam General: Comfortable; not in distress. Cardiac: RRR no rubs gallops or murmurs Lungs: decreased bs bilaterally. no rales wheez or rhonchi Abd: S NT ND BS positive MSK: Full ROM. No obvious deformities Ext: 1+ b/l LE non pitting Edema cyanosis Skin: Warm, Dry Neuro: AOx3. PERRLA, EOMI, CN II to XII intact. unable to lift left hand ( at baseline, reports that it happened about one year ago) Psych: Normal Mood Discharge Data Allergies Allergy/AdvReac Type Severity Reaction Status Date / Time latex Allergy Severe Rash Unverified 04/22/25 17:47 zinc Allergy Rash Verified 04/22/25 17:47 Consultations 04/22/25 03:34 ED Decision to Admit Stat 04/22/25 06:37 Consult Pulmonary Fellow Routine 04/23/25 12:12 Consult Palliative Care Routine 04/24/25 12:16 Consult Orthopedic Surgery Routine Ordered Studies 04/22/25 02:21 CT head/brain wo con Stat 04/22/25 03:37 US venous doppler LE BI Urgent 04/24/25 11:54 US venous doppler UE LT Routine Hospital Course (1) Acute on chronic respiratory failure with hypoxia and hypercapnia: (2) Obesity hypoventilation syndrome: (3) Restrictive lung disease: (4) Bilateral pulmonary infiltrates: (5) Failure to thrive in adult: (6) Physical deconditioning: Plan 54M with PMH morbid obesity (BMI 50-60), HTN, HFpEF with severe LVH, pulmonary hypertension, OHS/EMELY with treatment non-compliance, chronic mixed respiratory failure on 2L NC O2, psoriasis, severe OA, bedbound status, previously on hospice which was revoked, who was admitted on 04/22 for acute on chronic hypoxic hypercarbic resp failure requiring mechanical intubation. Patient was admitted to ICU after intubation. He required vasopressors for hypotension. He was started on antibiotics for possible pneumonia/UTI. He was diuresed with IV Lasix. Patient was extubated. Pulmonology was consulted for comanagement; patient's altered mentation and chronic hypercarbic respiratory failure was thought secondary to obesity hypoventilation syndrome. With the help of case management, patient was set up with AVAPS at home, along with hospital bed. Orthopedic was also consulted as patient's x-ray suggested possible inferior subluxation of humeral head. Orthopedic recommended outpati ent follow-up. Patient was discharged home with instructions to follow-up with PCP, orthopedic and pulmonology. Please note the above document was generated using voice recognition software. It may contain grammatical, syntax or spelling errors. Any formal questions or concerns about the content, text or information contained within the body of this dictation should be directly addressed to the provider for clarification Total Time Total Time Spent Total Time Spent (In Minutes): 34 Total Time Includes: Examination of the Patient, Discharge Planning, Medication Reconciliation, Communication With Other Providers and Other Discharge Plan Discharge Items Patient Disposition: Home - Home Health Services Reason For Visit: RESPIRATORY FAILURE Discharge Diagnosis: (1) Acute on chronic respiratory failure with hypoxia and hypercapnia: (2) Obesity hypoventilation syndrome: (3) Restrictive lung disease: (4) Bilateral pulmonary infiltrates: (5) Failure to thrive in adult: (6) Physical deconditioning Condition on Discharge: Fair Activity: Resume your previous activity Non-emergency contact: Primary Care Provider Call non-emergency contact if: you have any medication questions and your symptoms worsen Follow-up/Referrals: Sanford Rodriguez DO [Physician] - 05/03/25 9:20 am Zhang John CRNP [Nurse Practitioner] - 05/03/25 4:00 pm Tomi Mejia M.D. [Physician] - 05/06/25 10:00 am Marco A Lewis MD [Primary Care Provider] - Diet: Regular Addtl Attending Provider Instructions: You were admitted to the hospital due to lethargy. You are prescribed AVAPS machine and oxygen; please use it at home. You are seen by pulmonology; you have been recommended inhaler. If you have been prescribed inhaler; if it is not covered by your insurance; please discuss about a different inhaler during your follow-up with pulmonology on 05/03. Please follow-up with Dr.Scott Mejia for your left shoulder. Please call [phone] or [facility] [place] orthopedics Pending Studies at Discharge: No Stand-Alone Forms: My [facility] [employer], Smoking Cessation Medications and DC Order Prescriptions: [place] Aerosphere 160-9-4.8 mcg/actuation HFA aerosol inhaler 2 inh inhalation AMPM Qty: 10.7 0RF Continued multivitamin Tablet 1 tab PO DAILY ibuprofen [Advil Migraine] 200 mg Capsule 200 mg PO Q6H PRN (Reason: Migraine Headache) amlodipine 5 mg tablet 5 mg PO QAM aspirin 81 mg Tablet,Delayed Release (Dr/Ec) 81 mg PO QPM acetaminophen 500 mg Tablet 500 mg PO Q6H PRN (Reason: Pain) [id number] [Excedrin Migraine] 250-250-65 mg Tablet 1 tab PO Q6H PRN (Reason: Migraine Headache) furosemide 80 mg tablet 80 mg PO DAILY PRN (Reason: Swelling) Rx Instructions: does not want to take in morning since it interferes with therapy potassium chloride 10 mEq tablet,ER particles/crystals 20 meq PO DAILY PRN (Reason: If taking Lasix) magnesium oxide 400 mg (241.3 mg magnesium) tablet 400 mg PO AMPM Qty: 60 0RF metoprolol tartrate 25 mg tablet 25 mg PO AMPM Qty: 60 0RF Patient Comments: Per caregiver/Spouse they haven't been able to get this from the pharmacy so pt has been without for a month. 04/22/25 Discharge Orders: Discharge Order (Routine); Ordered 04/26/25 Ordered By: Randolph Huddleston/Other Patient Handouts: Chest and Lung Problems, Your Risk Factors for Heart Disease, Obesity and Its Impact on Health Admission Data Admit Date/Time: 04/22/25 05:18 Attending Provider: Randolph Hernandez Admit Provider: Natalie Clark Primary Care Provider: Macro A Lewis Other Providers: Onel Gillespie; Tomi Chu; [facility]; Kun Francois; Felicity Iglesias Other Interventions: Discharge Summary Assessment (RN) Last Done: 04/26/25 16:11
[2025-04-26 16:13] VITALS: BP 117/82; PULSE 91
[2025-04-27] MEDS ORDERED: FUROSEMIDE 40 MG TAB PO SCH (09:00)
== END 2025-04-26 17:45 | disposition home health service (06) | DRG 208 ==
LOC: SUATTDRO → ED 01:47 → 1E 05:18 → SUATTDRO 05:18 → 1E 06:10 → 4W 04-25 18:12
DX: R62.7 Adult failure to thrive; J84.89 Other specified interstitial pulmonary diseases; Z79.82 Long term (current) use of aspirin; Z87.891 Personal history of nicotine dependence; E66.813 Obesity, class 3; E66.2 Morbid (severe) obesity with alveolar hypoventilation; E87.29 Other acidosis; Z79.84 Long term (current) use of oral hypoglycemic drugs; N39.0 Urinary tract infection, site not specified; M25.512 Pain in left shoulder; J96.21 Acute and chronic respiratory failure with hypoxia; G93.41 Metabolic encephalopathy; Z68.43 Body mass index [BMI] 50.0-59.9, adult; Z91.040 Latex allergy status; I50.33 Acute on chronic diastolic (congestive) heart failure; J44.9 Chronic obstructive pulmonary disease, unspecified; E87.3 Alkalosis; J96.22 Acute and chronic respiratory failure with hypercapnia; I27.20 Pulmonary hypertension, unspecified; I11.0 Hypertensive heart disease with heart failure